=== PATIENT | female | born 1980 | race American Indian/Alaskan Native ===

== ENCOUNTER 2016-12-18 20:02 | Emergency (ER) | payer MEDICARE ==
[2016-12-18 20:03] VITALS: BMI 24.7
--- NOTE | 2016-12-18 21:27 | C.PDOC ---
History Of Present Illness 36 year old female with a Hx of sickle cell anemia presents to the ER with a complaint of bilateral leg, arm, and back pain for the past 2 days. Patient states the pain feels like her typical sickle cell crisis pain. Denies fever, cough, SOB, or chest pain. Patient is on 4mg dilaudid PO at home. Time Seen by Provider: 12/18/16 21:10 Chief Complaint (Nursing): Pain, Chronic History Per: Patient History/Exam Limitations: no limitations Onset/Duration Of Symptoms: Days Current Symptoms Are (Timing): Still Present Recent travel outside of the [place]: No Past Medical History Reviewed: Historical Data, Nursing Documentation, Vital Signs Vital Signs: Last Vital Signs Temp 98.2 F 12/18/16 20:22 Pulse 110 H 12/18/16 20:22 Resp 18 12/18/16 20:22 BP 124/78 12/18/16 20:22 Pulse Ox 100 12/18/16 21:32 - Medical History PMH: Anemia, Migraine, Sickle Cell Disease Surgical History: Cholecystectomy (2003) - [facility] Procedures PACKED CELL TRANSFUSION (07/26/12) TETANUS TOXOID ADMINIST (11/14/12) Family History: States: Unknown Family Hx - Social History Hx Tobacco Use: No Hx Alcohol Use: No Hx Substance Use: No - Immunization History Hx Tetanus Toxoid Vaccination: No Hx Influenza Vaccination: Yes Hx Pneumococcal Vaccination: Yes Review Of Systems Except As Marked, All Systems Reviewed And Found Negative. Constitutional: Negative for: Fever Cardiovascular: Negative for: Chest Pain Respiratory: Negative for: Shortness of Breath Musculoskeletal: Positive for: Arm Pain, Back Pain, Leg Pain Physical Exam - Physical Exam Additional Physical Exam Comments: Constitutional: No acute distress. Head: Normocephalic. Atraumatic. Eyes: PERRL. ENT: Moist mucous membranes. Neck: Supple. Cardiovascular: Regular rate. Radial pulse 2+ bilaterally. Chest: No tenderness. Respiratory: Clear to auscultation bilaterally. GI: Soft. Nontender. Nondistended. Back: No CVA tenderness. Musculoskeletal: No tenderness or swelling of extremities. Skin: No rash. Neurologic: Alert, no focal deficit. ED Course And Treatment O2 Sat by Pulse Oximetry: 100 (Room air) Pulse Ox Interpretation: Normal Medical Decision Making Medical Decision Making: Plan: * Benadryl * Dilaudid * Motrin * Reglan PO pain protocol initiated. Patient stated pain from 8 to 7 after 1 hour. Additional 8mg dilaudid PO administered. After another hour, patient states she feels better, at least a 5. She feels comfortable to go home. I advised her that she may return to ED for any worsening pain and to definitely return for chest pain, dyspnea, cough, fever. Disposition - Disposition Referrals: Rosalina Hernandez MD [Staff Provider] - Disposition: HOME/ ROUTINE Disposition Time: 00:38 Condition: STABLE Instructions: Sickle Cell Crisis (ED) Forms: [employer] ([place]) - Clinical Impression Clinical Impression: Sickle cell pain crisis - Scribe Statement The provider has reviewed the documentation as recorded by the Scribe Bright Gordon All medical record entries made by the Scribe were at my direction and personally dictated by me. I have reviewed the chart and agree that the record accurately reflects my personal performance of the history, physical exam, medical decision making, and the department course for this patient. I have also personally directed, reviewed, and agree with the discharge instructions and disposition.
[2016-12-19 00:45] VITALS: BP 108/73; PULSE 96; RESP 20; TEMP 98.3; O2SAT 99
== END 2016-12-19 00:50 | disposition home or self-care (01) ==
LOC: C.ER 20:02
DX: D57.00 Hb-SS disease with crisis, unspecified (principal)

== ENCOUNTER 2017-03-09 16:20 | Inpatient (IN) | payer MEDICARE ==
[2017-03-09 16:49] VITALS: BMI 22.4
[2017-03-09 18:09] LABS: SQUAMOUS EPITHIAL 21 /hpf (0-5); URINE BACTERIA MOD (<OCC); URINE BILIRUBIN NEGATIVE (NEGATIVE); URINE BLOOD 2+ (NEGATIVE); URINE CLARITY Hazy (Clear); URINE COLOR Yellow (YELLOW); URINE GLUCOSE (UA) NORMAL (Normal); URINE LEUKOCYTE ESTERASE 3+ Leu/uL (Negative); URINE NITRATE NEGATIVE (NEGATIVE); URINE PROTEIN 1+ mg/dL (NEGATIVE); URINE UROBILINOGEN NORMAL mg/dL (0.2-1.0)
[2017-03-09 18:10] LABS: HCG,QUALITATIVE URINE NEGATIVE (NEGATIVE)
[2017-03-09] MEDS ORDERED: Sodium Chloride 0.9% 1,000 ML IV ONE (18:30)
[2017-03-09] MEDS ORDERED: Acetaminophen-Codeine 300/30 mg Tab PO STA (18:32)
[2017-03-09] MEDS ORDERED: Acetaminophen-Codeine 300/30 mg Tab PO ONE (18:56)
[2017-03-09] MEDS ORDERED: Sodium Chloride 0.9% 1,000 ML ONE (18:56)
[2017-03-09 19:03] LABS: BASO # 0.4 K/uL (0.0-0.2); BASO % 1.5 % (0.0-2.0); EOS # 0.8 K/uL (0.0-0.7); EOS % 2.9 % (0.0-4.0); LYMPH # 7.1 K/uL (1.0-4.3); LYMPH % 25.1 % (20.0-40.0); MEAN CORPUSCULAR HEMOGLOBIN 28.9 pg (27.0-31.0); MEAN CORPUSCULAR HGB CONC 33.6 g/dL (33.0-37.0); MONO # 2.7 K/uL (0.0-0.8); MONO % 9.6 % (0.0-10.0); NEUT # 17.3 K/uL (1.8-7.0); NEUT % 60.9 % (50.0-75.0); RBC 2.12 Mil/uL (3.80-5.20); RED CELL DISTRIBUTION WIDTH 20.8 % (11.5-14.5); WHITE BLOOD COUNT 28.4 K/uL (4.8-10.8)
[2017-03-09 19:06] LABS: HEMOGLOBIN 6.1 g/dL (11.0-16.0); MEAN CELL VOLUME 85.9 fL (81.0-99.0)
[2017-03-09 19:11] LABS: ALB/GLOB RATIO 0.7 (1.0-2.1); ALBUMIN 3.8 g/dL (3.5-5.0); CALCIUM 8.1 mg/dl (8.6-10.4)
--- NOTE | 2017-03-09 19:25 | C.PDOC ---
History Of Present Illness 36 year old female with PMHx of sickle cell anemia presents to the ED c/o generalized body pains. Patient states she is not taking any medications at this time. Patient denies fever, chills, nausea, vomit, diarrhea. Patient's PMD is Dr. Dontae Hernandez. Time Seen by Provider: 03/09/17 18:28 Chief Complaint (Nursing): Pain, Chronic History Per: Patient History/Exam Limitations: no limitations Onset/Duration Of Symptoms: Days Current Symptoms Are (Timing): Still Present Recent travel outside of the [place]: No Additional History Per: Patient Past Medical History Reviewed: Historical Data, Nursing Documentation, Vital Signs Vital Signs: Last Vital Signs Temp 98.2 F 03/09/17 19:45 Pulse 103 H 03/09/17 19:45 Resp 18 03/09/17 19:45 BP 112/78 03/09/17 19:45 Pulse Ox 100 03/09/17 19:45 - Medical History PMH: Anemia, Migraine, Sickle Cell Disease Surgical History: Cholecystectomy (2003) - [facility] Procedures PACKED CELL TRANSFUSION (07/26/12) TETANUS TOXOID ADMINIST (11/14/12) Family History: States: Unknown Family Hx - Social History Hx Tobacco Use: No Hx Alcohol Use: No Hx Substance Use: No - Immunization History Hx Tetanus Toxoid Vaccination: No Hx Influenza Vaccination: Yes Hx Pneumococcal Vaccination: Yes Review Of Systems Constitutional: Positive for: Weakness. Negative for: Fever, Chills Cardiovascular: Negative for: Chest Pain, Palpitations Respiratory: Negative for: Cough, Shortness of Breath Gastrointestinal: Negative for: Nausea, Vomiting, Abdominal Pain Genitourinary: Negative for: Dysuria, Hematuria Musculoskeletal: Negative for: Back Pain Skin: Negative for: Rash Neurological: Negative for: Weakness, Numbness, Headache Physical Exam - Physical Exam Appears: Non-toxic, No Acute Distress Skin: Normal Color, Warm, Dry Head: Atraumatic, Normacephalic Eye(s): bilateral: Normal Inspection Nose: No Discharge, No Deformity Oral Mucosa: Moist Neck: Normal ROM, Supple Chest: Symmetrical Cardiovascular: Rhythm Regular, No Murmur Respiratory: Normal Breath Sounds, No Rales, No Rhonchi, No Wheezing Gastrointestinal/Abdominal: Soft, No Tenderness, No Guarding, No Rebound Extremity: Normal ROM, No Pedal Edema, No Calf Tenderness, No Deformity, No Swelling Neurological/Psych: Oriented x3, Normal Speech, Normal Cognition Gait: Steady ED Course And Treatment - Laboratory Results Result Diagrams: 03/09/17 18:53 03/09/17 18:53 O2 Sat by Pulse Oximetry: 100 (On RA) Pulse Ox Interpretation: Normal Medical Decision Making Medical Decision Making: Impression : generalized body pains Plan: * Labs * EKG * Blood culture * UA * IV fluids * Rocephin 1 gm in 100 ml * Toradol 30 mg IVP * Tylenol/codein 1 ea PO Spoke with Dr. Ha regarding the patient and he agreed with the admission. Disposition Discussed With : Lencho Ha Doctor Will See Patient In The: Hospital Counseled Patient/Family Regarding: Studies Performed, Diagnosis - Disposition Disposition: HOSPITALIZED Disposition Time: 19:26 Condition: FAIR Forms: [facility] (Citizen Of [place]) - Clinical Impression Clinical Impression: Sickle cell anemia with pain, UTI (urinary tract infection) - Scribe Statement The provider has reviewed the documentation as recorded by the Scribe Carlos Manuel Castañeda All medical record entries made by the Scribe were at my direction and personally dictated by me. I have reviewed the chart and agree that the record accurately reflects my personal performance of the history, physical exam, medical decision making, and the department course for this patient. I have also personally directed, reviewed, and agree with the discharge instructions and disposition.
[2017-03-09] MEDS ORDERED: DiphenhydrAMINE 50 mg/ml Inj ONE (21:21)
[2017-03-09] MEDS ORDERED: Sodium Chloride 0.45% 500ml 1,000 ML IV ONE (21:21)
[2017-03-09] MEDS: Sodium Chloride 0.45% 1,000 ML IV SCH (21:36)
[2017-03-09] MEDS: DiphenhydrAMINE 50 mg/ml Inj IVP PRN (21:36)
[2017-03-10] MEDS: DiphenhydrAMINE 50 mg/ml Inj IVP PRN ×8 (00:33→22:19)
[2017-03-10] MEDS: Sodium Chloride 0.45% 1,000 ML IV SCH ×4 (04:11→22:33)
[2017-03-10 06:23] LABS: BASO # 0.3 K/uL (0.0-0.2); BASO % 1.2 % (0.0-2.0); EOS # 1.2 K/uL (0.0-0.7); EOS % 4.5 % (0.0-4.0); LYMPH # 9.4 K/uL (1.0-4.3); LYMPH % 34.8 % (20.0-40.0); MEAN CELL VOLUME 86.8 fL (81.0-99.0); MEAN CORPUSCULAR HGB CONC 35.7 g/dL (33.0-37.0); MEAN PLATELET VOLUME 9.5 fL (7.2-11.7); MONO # 2.5 K/uL (0.0-0.8); MONO % 9.1 % (0.0-10.0); NEUT # 13.6 K/uL (1.8-7.0); NEUT % 50.4 % (50.0-75.0); RBC 1.68 Mil/uL (3.80-5.20); RED CELL DISTRIBUTION WIDTH 21.5 % (11.5-14.5)
[2017-03-10 06:35] LABS: HEMOGLOBIN 5.2 g/dL (11.0-16.0)
--- NOTE | 2017-03-10 08:53 | RAD ---
HISTORY: cough COMPARISON: Portable chest 12/03/2012. TECHNIQUE: Chest PA and lateral FINDINGS: Prior left-sided MediPort is been exchanged for a right-sided MediPort with the tip of the catheter terminating at the region of the right atrium. Stabilizing thoracic spinal rods are unchanged in apparent position and configuration at the thoracic spine. LUNGS: No acute infiltrate is identified bilaterally. Linear atelectasis or fibrosis in the right base. Overall inspiratory volume is improved. PLEURA: No significant pleural effusion identified. No pneumothorax apparent. CARDIOVASCULAR: Cardiac silhouette appears upper limits normal size. No pulmonary vascular derangement appreciated. OSSEOUS STRUCTURES: Thoracic spinal hardware as described above. VISUALIZED UPPER ABDOMEN: Apparent bilateral nephrostomy catheters are in identified in the abdomen. OTHER FINDINGS: None. IMPRESSION: One minimal linear atelectasis or fibrosis in the right base in the interval and MediPort axis is been exchanged for left to the right sides as discussed above in the interval. No acute infiltrate, pleural effusion or pneumothorax identified this time. Borderline cardiomegaly is noted.
--- NOTE | 2017-03-10 10:19 | CP.PCM.PN ---
Subjective - Date & Time of Evaluation Date of Evaluation: 03/10/17 Time of Evaluation: 10:16 - Subjective Subjective: PT SEEN AND TO REC 2 UNITS PRBC TODAY FOR HGB 5.2. PT STATES SHE HAS REC'D TRANSFUSIONS BEFORE WITHOUT ANY REACTIONS. LAST TRANSFUSIONS GIVEN APPROX 1-2 MONTHS AGO. DISCUSSED RISKS AND BENEFITS OF TRANSFUSION AND PT IN AGREEMENT TO HAVE IT DONE HERE. WILL PRE-MEDICATE WITH TYLENOL AND BENADRYL. PT VERBALIZES UNDERSTANDING OF ALL POSS REACTIONS. TO CONTINUE ROCEPHIN IV QD. NO FURTHER ORDERS AT THIS TIME. WILL CONTINUE TO MONITOR. Objective - Vital Signs/Intake and Output Vital Signs (last 24 hours): Temp Pulse Resp BP Pulse Ox 98.5 F 96 H 18 112/72 96 03/10/17 07:45 03/10/17 07:45 03/10/17 07:45 03/10/17 07:45 03/10/17 07:45 - Medications Medications: Current Medications Acetaminophen (Tylenol 325mg Tab) 650 mg PO ONCE PRN PRN Reason: give pre-transfusion Diphenhydramine HCl (Benadryl) 50 mg IVP Q3H PRN PRN Reason: given with dilaudid Last Admin: 03/10/17 06:47 Dose: 50 mg Diphenhydramine HCl (Benadryl) 25 mg PO ONCE PRN PRN Reason: pre-transfusion Hydromorphone HCl (Dilaudid) 2 mg IVP Q3H PRN PRN Reason: Pain, severe (8-10) Last Admin: 03/10/17 06:47 Dose: 2 mg Sodium Chloride (Sodium Chloride 0.45%) 1,000 mls @ 150 mls/hr IV .Q6H40M AP Last Admin: 03/10/17 04:11 Dose: 150 mls/hr Ceftriaxone Sodium 1 gm/ (Sodium Chloride) 50 mls @ 100 mls/hr IVPB DAILY AP - Labs Labs: 03/10/17 06:18 03/09/17 18:53
--- NOTE | 2017-03-10 12:12 | CP.PCM.CON ---
History of Present Illness - History of Present Illness History of Present Illness: 36 year old female with a history of sickle cell anemia, admitted with sickle cell pain crisis. The patient reports to increasing diffuse bone pain which did not improve with her oral pain meds. She denies fevers and chills. She does report to progressive fatigue but no shortness of breath. She denies abnormal bleeding and bruising. Past medical history: Sickle cell anemia Past surgical history: Portacath Family history: Parents have the trait. Social history: Denies tobacco, alcohol, and illicit drug use. Allergies: Droperidol, tramadol Review of systems: All remaining review of systems including HEENT, cardiovascular, respiratory, gastrointestinal, genitourinary, musculoskeletal, dermatologic, neurologic, and psychiatric are negative unless mentioned in the HPI. Past Patient History - Past Medical History & Family History Past Medical History?: Yes - Past Social History Smoking Status: Never Smoked - NEUROLOGICAL Hx Migraine: Yes - HEMATOLOGICAL/ONCOLOGICAL Hx Anemia: Yes Hx Sickle Cell Disease: Yes - MUSCULOSKELETAL/RHEUMATOLOGICAL Hx Falls: No - PSYCHIATRIC Hx Substance Use: No - SURGICAL HISTORY Hx Cholecystectomy: Yes (2003) - ANESTHESIA Hx Anesthesia: Yes Hx Anesthesia Reactions: No Meds Allergies/Adverse Reactions: Allergies Allergy/AdvReac Type Severity Reaction Status Date / Time droperidol Allergy Verified 03/09/17 16:48 tramadol Allergy Verified 03/09/17 16:48 inapsine Allergy RASH Uncoded 03/09/17 16:48 - Medications Medications: Current Medications Acetaminophen (Tylenol 325mg Tab) 650 mg PO ONCE PRN PRN Reason: give pre-transfusion Diphenhydramine HCl (Benadryl) 50 mg IVP Q3H PRN PRN Reason: given with dilaudid Last Admin: 03/10/17 10:15 Dose: 50 mg Diphenhydramine HCl (Benadryl) 25 mg PO ONCE PRN PRN Reason: pre-transfusion Hydromorphone HCl (Dilaudid) 2 mg IVP Q3H PRN PRN Reason: Pain, severe (8-10) Last Admin: 03/10/17 10:15 Dose: 2 mg Sodium Chloride (Sodium Chloride 0.45%) 1,000 mls @ 150 mls/hr IV .Q6H40M AP Last Admin: 03/10/17 04:11 Dose: 150 mls/hr Ceftriaxone Sodium 1 gm/ (Sodium Chloride) 50 mls @ 100 mls/hr IVPB DAILY AP Last Admin: 03/10/17 11:47 Dose: 100 mls/hr Physical Exam - Head Exam Head Exam: ATRAUMATIC - Eye Exam Eye Exam: Normal appearance - ENT Exam ENT Exam: Mucous Membranes Dry - Respiratory Exam Respiratory Exam: NORMAL BREATHING PATTERN - Cardiovascular Exam Cardiovascular Exam: +S1, +S2 - GI/Abdominal Exam GI & Abdominal Exam: Normal Bowel Sounds - Extremities Exam Extremities exam: Positive for: normal inspection - Neurological Exam Neurological exam: Oriented x3 - Psychiatric Exam Psychiatric exam: Normal Affect, Normal Mood - Skin Skin Exam: Warm Results - Vital Signs Recent Vital Signs: Last Vital Signs Temp 98.5 F 03/10/17 07:45 Pulse 96 H 03/10/17 07:45 Resp 18 03/10/17 07:45 BP 112/72 03/10/17 07:45 Pulse Ox 96 03/10/17 07:45 - Labs Result Diagrams: 03/11/17 06:24 03/11/17 06:24 Labs: Laboratory Results - last 24 hr 03/09/17 03/09/17 03/09/17 17:58 18:53 18:53 WBC 28.4 H D RBC 2.12 L Hgb 6.1 L* D Hct 18.2 L MCV 85.9 D MCH 28.9 MCHC 33.6 RDW 20.8 H Plt Count 245 MPV 9.0 Neut % (Auto) 60.9 Lymph % (Auto) 25.1 [place] % (Auto) 9.6 Eos % (Auto) 2.9 Baso % (Auto) 1.5 Neut # 17.3 H Lymph # 7.1 H [place] # 2.7 H Eos # 0.8 H Baso # 0.4 H Retic Count Sodium 133 Potassium 5.0 Chloride 105 Carbon Dioxide 20 L Anion Gap 13 BUN 33 H Creatinine 1.4 H Est GFR ( Amer) 51 Est GFR (Non-Af Amer) 42 Random Glucose 87 Calcium 8.1 L Ferritin Total Bilirubin 3.4 H AST 189 H ALT 110 H D Alkaline Phosphatase 194 H Total Protein 9.4 H Albumin 3.8 Globulin 5.6 H Albumin/Globulin Ratio 0.7 L Lipase 275 Urine Color Yellow Urine Clarity Hazy Urine pH 6.0 Ur Specific [place] 1.008 Urine Protein 1+ H Urine Glucose (UA) Normal Urine Ketones Negative Urine Blood 2+ H Urine Nitrate Negative Urine Bilirubin Negative Urine Urobilinogen Normal Ur Leukocyte Esterase 3+ H Urine WBC (Auto) 862 H Urine RBC (Auto) 6 H Ur Squamous Epith Cells 21 H Urine Bacteria Mod H Ur Yeast w Hyphae Rare H Urine HCG, Qual Negative Blood Type Antibody Screen 03/09/17 03/10/17 03/10/17 19:37 06:18 06:18 WBC 27.0 H RBC 1.68 L Hgb 5.2 L* Hct 14.6 L MCV 86.8 MCH 31.0 MCHC 35.7 RDW 21.5 H Plt Count 202 MPV 9.5 Neut % (Auto) 50.4 Lymph % (Auto) 34.8 [place] % (Auto) 9.1 Eos % (Auto) 4.5 H Baso % (Auto) 1.2 Neut # 13.6 H Lymph # 9.4 H [place] # 2.5 H Eos # 1.2 H Baso # 0.3 H Retic Count 11.4 H D 11.0 H Sodium Potassium Chloride Carbon Dioxide Anion Gap BUN Creatinine Est GFR ( Amer) Est GFR (Non-Af Amer) Random Glucose Calcium Ferritin 71225.0 Total Bilirubin AST ALT Alkaline Phosphatase Total Protein Albumin Globulin Albumin/Globulin Ratio Lipase Urine Color Urine Clarity Urine pH Ur Specific [place] Urine Protein Urine Glucose (UA) Urine Ketones Urine Blood Urine Nitrate Urine Bilirubin Urine Urobilinogen Ur Leukocyte Esterase Urine WBC (Auto) Urine RBC (Auto) Ur Squamous Epith Cells Urine Bacteria Ur Yeast w Hyphae Urine HCG, Qual Blood Type Antibody Screen 03/10/17 08:04 WBC RBC Hgb Hct MCV MCH MCHC RDW Plt Count MPV Neut % (Auto) Lymph % (Auto) [place] % (Auto) Eos % (Auto) Baso % (Auto) Neut # Lymph # [place] # Eos # Baso # Retic Count Sodium Potassium Chloride Carbon Dioxide Anion Gap BUN Creatinine Est GFR ( Amer) Est GFR (Non-Af Amer) Random Glucose Calcium Ferritin Total Bilirubin AST ALT Alkaline Phosphatase Total Protein Albumin Globulin Albumin/Globulin Ratio Lipase Urine Color Urine Clarity Urine pH Ur Specific [place] Urine Protein Urine Glucose (UA) Urine Ketones Urine Blood Urine Nitrate Urine Bilirubin Urine Urobilinogen Ur Leukocyte Esterase Urine WBC (Auto) Urine RBC (Auto) Ur Squamous Epith Cells Urine Bacteria Ur Yeast w Hyphae Urine HCG, Qual Blood Type O POSITIVE Antibody Screen Negative Assessment & Plan (1) Sickle cell pain crisis Assessment and Plan: IV fluids, 02 via NC, folic acid, pain meds to receive 2U PRBC Status: Acute (2) Leukocytosis Assessment and Plan: on antibiotics may be reactive to sickle cell Status: Acute (3) Sickle cell anemia Assessment and Plan: folic acid daily reports hydrea did not work for her Status: Acute
--- NOTE | 2017-03-10 12:24 | CP.PCM.HP ---
Past Patient History - Past Medical History & Family History Past Medical History?: Yes - Past Social History Smoking Status: Never Smoked - NEUROLOGICAL Hx Migraine: Yes - HEMATOLOGICAL/ONCOLOGICAL Hx Anemia: Yes Hx Sickle Cell Disease: Yes - MUSCULOSKELETAL/RHEUMATOLOGICAL Hx Falls: No - PSYCHIATRIC Hx Substance Use: No - SURGICAL HISTORY Hx Cholecystectomy: Yes (2003) - ANESTHESIA Hx Anesthesia: Yes Hx Anesthesia Reactions: No Meds Allergies/Adverse Reactions: Allergies Allergy/AdvReac Type Severity Reaction Status Date / Time droperidol Allergy Verified 03/09/17 16:48 tramadol Allergy Verified 03/09/17 16:48 inapsine Allergy RASH Uncoded 03/09/17 16:48 Results - Vital Signs Recent Vital Signs: Last Vital Signs Temp 98.5 F 03/10/17 07:45 Pulse 96 H 03/10/17 07:45 Resp 18 03/10/17 07:45 BP 112/72 03/10/17 07:45 Pulse Ox 96 03/10/17 07:45 - Labs Result Diagrams: 03/10/17 06:18 03/09/17 18:53 Labs: Laboratory Results - last 24 hr 03/09/17 03/09/17 03/09/17 17:58 18:53 18:53 WBC 28.4 H D RBC 2.12 L Hgb 6.1 L* D Hct 18.2 L MCV 85.9 D MCH 28.9 MCHC 33.6 RDW 20.8 H Plt Count 245 MPV 9.0 Neut % (Auto) 60.9 Lymph % (Auto) 25.1 [place] % (Auto) 9.6 Eos % (Auto) 2.9 Baso % (Auto) 1.5 Neut # 17.3 H Lymph # 7.1 H [place] # 2.7 H Eos # 0.8 H Baso # 0.4 H Retic Count Sodium 133 Potassium 5.0 Chloride 105 Carbon Dioxide 20 L Anion Gap 13 BUN 33 H Creatinine 1.4 H Est GFR ( Amer) 51 Est GFR (Non-Af Amer) 42 Random Glucose 87 Calcium 8.1 L Ferritin Total Bilirubin 3.4 H AST 189 H ALT 110 H D Alkaline Phosphatase 194 H Total Protein 9.4 H Albumin 3.8 Globulin 5.6 H Albumin/Globulin Ratio 0.7 L Lipase 275 Urine Color Yellow Urine Clarity Hazy Urine pH 6.0 Ur Specific [place] 1.008 Urine Protein 1+ H Urine Glucose (UA) Normal Urine Ketones Negative Urine Blood 2+ H Urine Nitrate Negative Urine Bilirubin Negative Urine Urobilinogen Normal Ur Leukocyte Esterase 3+ H Urine WBC (Auto) 862 H Urine RBC (Auto) 6 H Ur Squamous Epith Cells 21 H Urine Bacteria Mod H Ur Yeast w Hyphae Rare H Urine HCG, Qual Negative Blood Type Antibody Screen 03/09/17 03/10/17 03/10/17 19:37 06:18 06:18 WBC 27.0 H RBC 1.68 L Hgb 5.2 L* Hct 14.6 L MCV 86.8 MCH 31.0 MCHC 35.7 RDW 21.5 H Plt Count 202 MPV 9.5 Neut % (Auto) 50.4 Lymph % (Auto) 34.8 [place] % (Auto) 9.1 Eos % (Auto) 4.5 H Baso % (Auto) 1.2 Neut # 13.6 H Lymph # 9.4 H [place] # 2.5 H Eos # 1.2 H Baso # 0.3 H Retic Count 11.4 H D 11.0 H Sodium Potassium Chloride Carbon Dioxide Anion Gap BUN Creatinine Est GFR ( Amer) Est GFR (Non-Af Amer) Random Glucose Calcium Ferritin 02688.0 Total Bilirubin AST ALT Alkaline Phosphatase Total Protein Albumin Globulin Albumin/Globulin Ratio Lipase Urine Color Urine Clarity Urine pH Ur Specific [place] Urine Protein Urine Glucose (UA) Urine Ketones Urine Blood Urine Nitrate Urine Bilirubin Urine Urobilinogen Ur Leukocyte Esterase Urine WBC (Auto) Urine RBC (Auto) Ur Squamous Epith Cells Urine Bacteria Ur Yeast w Hyphae Urine HCG, Qual Blood Type Antibody Screen 03/10/17 08:04 WBC RBC Hgb Hct MCV MCH MCHC RDW Plt Count MPV Neut % (Auto) Lymph % (Auto) [place] % (Auto) Eos % (Auto) Baso % (Auto) Neut # Lymph # [place] # Eos # Baso # Retic Count Sodium Potassium Chloride Carbon Dioxide Anion Gap BUN Creatinine Est GFR ( Amer) Est GFR (Non-Af Amer) Random Glucose Calcium Ferritin Total Bilirubin AST ALT Alkaline Phosphatase Total Protein Albumin Globulin Albumin/Globulin Ratio Lipase Urine Color Urine Clarity Urine pH Ur Specific [place] Urine Protein Urine Glucose (UA) Urine Ketones Urine Blood Urine Nitrate Urine Bilirubin Urine Urobilinogen Ur Leukocyte Esterase Urine WBC (Auto) Urine RBC (Auto) Ur Squamous Epith Cells Urine Bacteria Ur Yeast w Hyphae Urine HCG, Qual Blood Type O POSITIVE Antibody Screen Negative
[2017-03-11] MEDS: Sodium Chloride 0.45% 1,000 ML IV SCH ×6 (00:10→22:24)
[2017-03-11 00:56] VITALS: RESP 20
[2017-03-11] MEDS: DiphenhydrAMINE 50 mg/ml Inj IVP PRN ×8 (01:37→23:58)
[2017-03-11 06:34] LABS: HEMOGLOBIN 8.2 g/dL (11.0-16.0); MEAN CELL VOLUME 84.6 fL (81.0-99.0); MEAN CORPUSCULAR HEMOGLOBIN 29.5 pg (27.0-31.0); MEAN CORPUSCULAR HGB CONC 34.8 g/dL (33.0-37.0); MEAN PLATELET VOLUME 9.4 fL (7.2-11.7); RBC 2.77 Mil/uL (3.80-5.20); RED CELL DISTRIBUTION WIDTH 17.9 % (11.5-14.5); WHITE BLOOD COUNT 24.9 K/uL (4.8-10.8)
[2017-03-11 06:54] LABS: ALB/GLOB RATIO 0.8 (1.0-2.1); ALBUMIN 3.6 g/dL (3.5-5.0); CALCIUM 7.4 mg/dl (8.6-10.4)
[2017-03-11] MEDS ORDERED: Sod Polystyrene Sulf 15 gm/60 ml Susp PO ONE (12:48)
[2017-03-11] MEDS ORDERED: Sodium Chloride 0.9% 500 ML IV ONE (15:06)
--- NOTE | 2017-03-11 16:53 | CP.PCM.PN ---
Subjective - Date & Time of Evaluation Date of Evaluation: 03/11/17 Time of Evaluation: 16:00 - Subjective Subjective: Has bone pain but improving Objective - Vital Signs/Intake and Output Vital Signs (last 24 hours): Temp Pulse Resp BP Pulse Ox 97.3 F L 112 H 20 100/65 96 03/11/17 08:40 03/11/17 08:40 03/11/17 08:40 03/11/17 08:40 03/11/17 08:40 Intake and Output: 03/11/17 03/11/17 06:59 18:59 Intake Total 2225 Balance 2225 - Medications Medications: Current Medications Acetaminophen (Tylenol 325mg Tab) 650 mg PO ONCE PRN PRN Reason: give pre-transfusion Last Admin: 03/10/17 13:07 Dose: 650 mg Diphenhydramine HCl (Benadryl) 50 mg IVP Q3H PRN PRN Reason: given with dilaudid Last Admin: 03/11/17 14:24 Dose: 50 mg Diphenhydramine HCl (Benadryl) 25 mg PO ONCE PRN PRN Reason: pre-transfusion Folic Acid (Folic Acid) 1 mg PO DAILY [facility] Hydromorphone HCl (Dilaudid) 2 mg IVP Q3H PRN PRN Reason: Pain, severe (8-10) Last Admin: 03/11/17 14:24 Dose: 2 mg Sodium Chloride (Sodium Chloride 0.45%) 1,000 mls @ 150 mls/hr IV .Q6H40M [facility] Last Admin: 03/11/17 08:08 Dose: 150 mls/hr Ceftriaxone Sodium 1 gm/ (Sodium Chloride) 50 mls @ 100 mls/hr IVPB DAILY [facility] Last Admin: 03/11/17 11:00 Dose: 100 mls/hr - Labs Labs: 03/11/17 06:24 03/11/17 06:24 - Head Exam Head Exam: ATRAUMATIC - Eye Exam Eye Exam: Normal appearance - ENT Exam ENT Exam: Mucous Membranes Dry - Respiratory Exam Respiratory Exam: NORMAL BREATHING PATTERN - Cardiovascular Exam Cardiovascular Exam: +S1, +S2 - GI/Abdominal Exam GI & Abdominal Exam: Normal Bowel Sounds - Extremities Exam Extremities Exam: Normal Inspection Assessment and Plan (1) Sickle cell pain crisis Assessment & Plan: IV fluids, pain meds, 02 via NC, folic acid s/p 2U PRBC Status: Acute (2) Leukocytosis Assessment & Plan: on antibiotics may be reactive to sickle cell Status: Acute (3) Sickle cell anemia Assessment & Plan: outpatient folic acid Status: Acute
--- NOTE | 2017-03-11 18:47 | CP.PCM.PN ---
Subjective - Date & Time of Evaluation Date of Evaluation: 03/11/17 Time of Evaluation: 18:47 Objective - Vital Signs/Intake and Output Vital Signs (last 24 hours): Temp Pulse Resp BP Pulse Ox 97.3 F L 112 H 20 112/78 96 03/11/17 08:40 03/11/17 08:40 03/11/17 08:40 03/11/17 17:29 03/11/17 08:40 Intake and Output: 03/11/17 03/11/17 06:59 18:59 Intake Total 2225 2500 Balance 2225 2500 - Medications Medications: Current Medications Acetaminophen (Tylenol 325mg Tab) 650 mg PO ONCE PRN PRN Reason: give pre-transfusion Last Admin: 03/10/17 13:07 Dose: 650 mg Diphenhydramine HCl (Benadryl) 50 mg IVP Q3H PRN PRN Reason: given with dilaudid Last Admin: 03/11/17 17:29 Dose: 50 mg Diphenhydramine HCl (Benadryl) 25 mg PO ONCE PRN PRN Reason: pre-transfusion Folic Acid (Folic Acid) 1 mg PO DAILY [facility] Last Admin: 03/11/17 17:29 Dose: 1 mg Hydromorphone HCl (Dilaudid) 2 mg IVP Q3H PRN PRN Reason: Pain, severe (8-10) Last Admin: 03/11/17 17:30 Dose: 2 mg Sodium Chloride (Sodium Chloride 0.45%) 1,000 mls @ 150 mls/hr IV .Q6H40M [facility] Last Admin: 03/11/17 17:35 Dose: 150 mls/hr Ceftriaxone Sodium 1 gm/ (Sodium Chloride) 50 mls @ 100 mls/hr IVPB DAILY [facility] Last Admin: 03/11/17 11:00 Dose: 100 mls/hr - Labs Labs: 03/11/17 06:24 03/11/17 06:24
[2017-03-12] MEDS: DiphenhydrAMINE 50 mg/ml Inj IVP PRN ×7 (03:00→21:31)
[2017-03-12] MEDS: Sodium Chloride 0.45% 1,000 ML IV SCH ×3 (03:06→16:00)
[2017-03-12 07:58] LABS: BASO # 0.2 K/uL (0.0-0.2); EOS # 1.2 K/uL (0.0-0.7); HEMOGLOBIN 7.8 g/dL (11.0-16.0); LYMPH # 3.9 K/uL (1.0-4.3); LYMPH % 16.3 % (20.0-40.0); MEAN CELL VOLUME 85.7 fL (81.0-99.0); MEAN CORPUSCULAR HEMOGLOBIN 29.5 pg (27.0-31.0); MEAN CORPUSCULAR HGB CONC 34.4 g/dL (33.0-37.0); MEAN PLATELET VOLUME 10.2 fL (7.2-11.7); MONO # 2.5 K/uL (0.0-0.8); MONO % 10.5 % (0.0-10.0); NEUT % 67.2 % (50.0-75.0); RBC 2.64 Mil/uL (3.80-5.20); RED CELL DISTRIBUTION WIDTH 18.6 % (11.5-14.5); WHITE BLOOD COUNT 23.8 K/uL (4.8-10.8)
[2017-03-12 08:28] LABS: ALBUMIN 3.6 g/dL (3.5-5.0); CALCIUM 7.9 mg/dl (8.6-10.4); MAGNESIUM 1.5 mg/dL (1.6-2.3)
[2017-03-12 08:29] LABS: ALB/GLOB RATIO 0.8 (1.0-2.1)
--- NOTE | 2017-03-12 15:51 | CP.PCM.PN ---
Subjective - Date & Time of Evaluation Date of Evaluation: 03/12/17 Time of Evaluation: 15:51 Objective - Vital Signs/Intake and Output Vital Signs (last 24 hours): Temp Pulse Resp BP Pulse Ox 99.4 F 111 H 20 112/76 95 03/12/17 07:25 03/12/17 07:25 03/12/17 07:25 03/12/17 07:25 03/12/17 07:25 Intake and Output: 03/12/17 03/12/17 06:59 18:59 Intake Total 1860 1600 Output Total 300 Balance 1860 1300 - Medications Medications: Current Medications Acetaminophen (Tylenol 325mg Tab) 650 mg PO ONCE PRN PRN Reason: give pre-transfusion Last Admin: 03/10/17 13:07 Dose: 650 mg Diphenhydramine HCl (Benadryl) 50 mg IVP Q3H PRN PRN Reason: given with dilaudid Last Admin: 03/12/17 15:32 Dose: 50 mg Diphenhydramine HCl (Benadryl) 25 mg PO ONCE PRN PRN Reason: pre-transfusion Folic Acid (Folic Acid) 1 mg PO DAILY [facility] Last Admin: 03/12/17 09:25 Dose: 1 mg Hydromorphone HCl (Dilaudid) 2 mg IVP Q3H PRN PRN Reason: Pain, severe (8-10) Last Admin: 03/12/17 15:31 Dose: 2 mg Sodium Chloride (Sodium Chloride 0.45%) 1,000 mls @ 150 mls/hr IV .Q6H40M [facility] Last Admin: 03/12/17 10:00 Dose: 150 mls/hr Ceftriaxone Sodium 1 gm/ (Sodium Chloride) 100 mls @ 100 mls/hr IVPB DAILY [facility] Last Admin: 03/12/17 09:27 Dose: 100 mls/hr - Labs Labs: 03/12/17 07:25 03/12/17 07:25
[2017-03-12] MEDS ORDERED: Magnesium Sulfate 1 gm in D5W 1 GM/100 ML BAG IVPB ONE (17:36)
--- NOTE | 2017-03-12 17:48 | CP.PCM.PN ---
Subjective - Date & Time of Evaluation Date of Evaluation: 03/12/17 Time of Evaluation: 17:44 - Subjective Subjective: PATIENT WAS ADMITTED FOR SICKLE CELL CRISIS; AAOX3 DENIES PAIN; JUST COMPLAINING OF DISCOMFORT; DENIES CHEST PAIN, NAUSEA OR VOMITING NO SIGN OF DISTRESS NOTED Objective - Vital Signs/Intake and Output Vital Signs (last 24 hours): Temp Pulse Resp BP Pulse Ox 98.1 F 102 H 20 125/74 95 03/12/17 16:22 03/12/17 16:22 03/12/17 16:22 03/12/17 16:22 03/12/17 16:22 Intake and Output: 03/12/17 03/12/17 06:59 18:59 Intake Total 1860 1600 Output Total 300 Balance 1860 1300 - Medications Medications: Current Medications Acetaminophen (Tylenol 325mg Tab) 650 mg PO ONCE PRN PRN Reason: give pre-transfusion Last Admin: 03/10/17 13:07 Dose: 650 mg Diphenhydramine HCl (Benadryl) 50 mg IVP Q3H PRN PRN Reason: given with dilaudid Last Admin: 03/12/17 15:32 Dose: 50 mg Diphenhydramine HCl (Benadryl) 25 mg PO ONCE PRN PRN Reason: pre-transfusion Folic Acid (Folic Acid) 1 mg PO DAILY [facility] Last Admin: 03/12/17 09:25 Dose: 1 mg Hydromorphone HCl (Dilaudid) 2 mg IVP Q3H PRN PRN Reason: Pain, severe (8-10) Last Admin: 03/12/17 15:31 Dose: 2 mg Sodium Chloride (Sodium Chloride 0.45%) 1,000 mls @ 150 mls/hr IV .Q6H40M [facility] Last Admin: 03/12/17 10:00 Dose: 150 mls/hr Ceftriaxone Sodium 1 gm/ (Sodium Chloride) 100 mls @ 100 mls/hr IVPB DAILY [facility] Last Admin: 03/12/17 09:27 Dose: 100 mls/hr Magnesium Sulfate/Dextrose (Magnesium Sulfate 1 Gm/100 Ml D5w) 1 gm in 100 mls @ 200 mls/hr IVPB ONCE ONE Stop: 03/12/17 18:05 - Labs Labs: 03/12/17 07:25 03/12/17 07:25 Assessment and Plan - Assessment and Plan (Free Text) Assessment: MG WAS 1.5 [address] POTASSIUM WAS 5.2 LASIX CAUSE PATIENT REFUSE [facility] FOR TOMORROW FOR [employer] ON DUTY TO FOLLOW DISCUSS WITH DR VEGAS AND DR SOOD WHO AGREE WITH THE PLAN FOLLOW UP WITH DR Alba GONZALEZ AT HIS OFFICE FOR F/U APPOINTMENT IN 1-2 WEEKS --- CALL FOR APPOINTMENT OR FOLLOW UP WITH DR SOOD COVERING PHYSICIAN IF UNABLE TO REACH DR Alba GONZALEZ IN HIS OFFICE --CALL FOR APPOINTMENT FOLLOW UP WITH YOUR ONCOLOGY OUT PATIENT 1-2 WEEKS AT HIS OFFICE ---CALL FOR APPOINTMENT CONTINUE ALL YOR HOME MEDICATION DIRECTED NEW PRESCRIPTION GIVEN: BACTRIM DS FOR 5 DAYS DILAUDID 2 MG BY MOUTH EVERY 6 HOURS FOR 5 DAYS FOR PAIN CALL DR Alba GONZALEZ OR DR SOOD OR GO TO THE EMERGENCY ROOM IF SYMPTOMS RETURN OR WORSENING
[2017-03-12] MEDS ORDERED: Pneumococcal 23-Valent Vaccine IM ONE (18:05)
[2017-03-12] MEDS ORDERED: Influenza Vaccine 60 mcg/0.5 mL SYR (4YR UP) IM ONE (18:05)
--- NOTE | 2017-03-12 21:24 | CP.PCM.PN ---
Subjective - Date & Time of Evaluation Date of Evaluation: 03/12/17 Time of Evaluation: 12:00 - Subjective Subjective: Still has some bone pain but improved. Objective - Vital Signs/Intake and Output Vital Signs (last 24 hours): Temp Pulse Resp BP Pulse Ox 98.1 F 102 H 20 125/74 95 03/12/17 16:22 03/12/17 16:22 03/12/17 16:22 03/12/17 16:22 03/12/17 16:22 Intake and Output: 03/12/17 03/13/17 18:59 06:59 Intake Total 1600 Output Total 300 Balance 1300 - Medications Medications: Current Medications Acetaminophen (Tylenol 325mg Tab) 650 mg PO ONCE PRN PRN Reason: give pre-transfusion Last Admin: 03/10/17 13:07 Dose: 650 mg Diphenhydramine HCl (Benadryl) 50 mg IVP Q3H PRN PRN Reason: given with dilaudid Last Admin: 03/12/17 18:40 Dose: 50 mg Diphenhydramine HCl (Benadryl) 25 mg PO ONCE PRN PRN Reason: pre-transfusion Folic Acid (Folic Acid) 1 mg PO DAILY [facility] Last Admin: 03/12/17 09:25 Dose: 1 mg Hydromorphone HCl (Dilaudid) 2 mg IVP Q3H PRN PRN Reason: Pain, severe (8-10) Last Admin: 03/12/17 18:40 Dose: 2 mg Sodium Chloride (Sodium Chloride 0.45%) 1,000 mls @ 150 mls/hr IV .Q6H40M [facility] Last Admin: 03/12/17 10:00 Dose: 150 mls/hr Ceftriaxone Sodium 1 gm/ (Sodium Chloride) 100 mls @ 100 mls/hr IVPB DAILY [facility] Last Admin: 03/12/17 09:27 Dose: 100 mls/hr - Labs Labs: 03/12/17 07:25 03/12/17 07:25 - Head Exam Head Exam: ATRAUMATIC - Eye Exam Eye Exam: Normal appearance - ENT Exam ENT Exam: Mucous Membranes Dry - Respiratory Exam Respiratory Exam: NORMAL BREATHING PATTERN - Cardiovascular Exam Cardiovascular Exam: +S1, +S2 - GI/Abdominal Exam GI & Abdominal Exam: Normal Bowel Sounds - Extremities Exam Extremities Exam: Normal Inspection Assessment and Plan (1) Sickle cell pain crisis Assessment & Plan: IVF, 02 via NC, folic acid, pain meds s/p 2U PRBC Status: Acute (2) Leukocytosis Assessment & Plan: likely reactive to sickle cell on empiric antibiotics Status: Acute (3) Sickle cell anemia Assessment & Plan: outpatient folic acid. Status: Acute
[2017-03-13] MEDS: DiphenhydrAMINE 50 mg/ml Inj IVP PRN ×6 (00:34→16:06)
[2017-03-13 07:26] LABS: BASO # 0.3 K/uL (0.0-0.2); BASO % 1.2 % (0.0-2.0); EOS # 1.2 K/uL (0.0-0.7); EOS % 5.8 % (0.0-4.0); HEMOGLOBIN 7.7 g/dL (11.0-16.0); LYMPH # 4.4 K/uL (1.0-4.3); MEAN CELL VOLUME 86.1 fL (81.0-99.0); MEAN CORPUSCULAR HEMOGLOBIN 28.9 pg (27.0-31.0); MEAN CORPUSCULAR HGB CONC 33.6 g/dL (33.0-37.0); MEAN PLATELET VOLUME 10.4 fL (7.2-11.7); MONO # 1.6 K/uL (0.0-0.8); MONO % 7.6 % (0.0-10.0); NEUT # 13.6 K/uL (1.8-7.0); NEUT % 64.4 % (50.0-75.0); NRBC % 0.3 % (0.0-2.0); RBC 2.65 Mil/uL (3.80-5.20); RED CELL DISTRIBUTION WIDTH 19.4 % (11.5-14.5); WHITE BLOOD COUNT 21.2 K/uL (4.8-10.8)
[2017-03-13 07:51] LABS: ALB/GLOB RATIO 0.7 (1.0-2.1); ALBUMIN 3.7 g/dL (3.5-5.0); CALCIUM 7.7 mg/dl (8.6-10.4); MAGNESIUM 1.8 mg/dL (1.6-2.3)
--- NOTE | 2017-03-13 15:55 | CP.PCM.PN ---
Subjective - Date & Time of Evaluation Date of Evaluation: 03/13/17 Time of Evaluation: 15:55 Objective - Vital Signs/Intake and Output Vital Signs (last 24 hours): Temp Pulse Resp BP Pulse Ox 98.4 F 104 H 20 121/74 95 03/13/17 07:35 03/13/17 07:35 03/13/17 07:35 03/13/17 07:35 03/13/17 07:35 Intake and Output: 03/13/17 03/13/17 06:59 18:59 Intake Total 1500 Balance 1500 - Medications Medications: Current Medications Acetaminophen (Tylenol 325mg Tab) 650 mg PO ONCE PRN PRN Reason: give pre-transfusion Last Admin: 03/10/17 13:07 Dose: 650 mg Diphenhydramine HCl (Benadryl) 50 mg IVP Q3H PRN PRN Reason: given with dilaudid Last Admin: 03/13/17 12:48 Dose: 50 mg Diphenhydramine HCl (Benadryl) 25 mg PO ONCE PRN PRN Reason: pre-transfusion Folic Acid (Folic Acid) 1 mg PO DAILY [facility] Last Admin: 03/13/17 09:39 Dose: 1 mg Hydromorphone HCl (Dilaudid) 2 mg IVP Q3H PRN PRN Reason: Pain, severe (8-10) Last Admin: 03/13/17 12:48 Dose: 2 mg Ceftriaxone Sodium 1 gm/ (Sodium Chloride) 100 mls @ 100 mls/hr IVPB DAILY [facility] Last Admin: 03/13/17 09:39 Dose: 100 mls/hr - Labs Labs: 03/13/17 07:17 03/13/17 07:17
[2017-03-13 16:11] VITALS: BP 125/83; PULSE 102; TEMP 98.6; O2SAT 96
== END 2017-03-13 19:00 | disposition home or self-care (01) | DRG 812 ==
LOC: C.ER 16:20 → C.9E 19:25 → C.5S 23:00
PROVIDERS: ADMIT Internal Medicine Critical Care Medicine; ATTEND Internal Medicine Critical Care Medicine
PROC: 30233N1 Transfusion of Nonautologous Red Blood Cells into Peripheral Vein, Percutaneous Approach (ICD-10-PCS; principal; 2017-03-10)
DX: D57.00 Hb-SS disease with crisis, unspecified (principal); D72.829 Elevated white blood cell count, unspecified; N39.0 Urinary tract infection, site not specified; Z90.49 Acquired absence of other specified parts of digestive tract

== ENCOUNTER 2017-03-16 01:27 | Inpatient (IN) | payer MEDICARE ==
[2017-03-16 01:28] VITALS: BMI 22.4
[2017-03-16] MEDS ORDERED: DiphenhydrAMINE 50 mg/ml Inj IVP STA (05:22)
[2017-03-16] MEDS ORDERED: Sodium Chloride 0.9% 1,000 ML IV ONE (05:23)
[2017-03-16] MEDS ORDERED: DiphenhydrAMINE 50 mg/ml Inj ONE ×3 (05:42→13:27)
[2017-03-16] MEDS ORDERED: Sodium Chloride 0.9% 1,000 ML ONE (05:43)
[2017-03-16 05:54] LABS: BASO # 0.4 K/uL (0.0-0.2); BASO % 2.5 % (0.0-2.0); EOS # 0.6 K/uL (0.0-0.7); EOS % 3.8 % (0.0-4.0); HEMOGLOBIN 7.2 g/dL (11.0-16.0); LYMPH # 3.8 K/uL (1.0-4.3); LYMPH % 22.1 % (20.0-40.0); MEAN CORPUSCULAR HEMOGLOBIN 28.3 pg (27.0-31.0); MEAN CORPUSCULAR HGB CONC 33.7 g/dL (33.0-37.0); MEAN PLATELET VOLUME 9.3 fL (7.2-11.7); MONO # 1.6 K/uL (0.0-0.8); MONO % 9.4 % (0.0-10.0); NEUT # 10.6 K/uL (1.8-7.0); NEUT % 62.2 % (50.0-75.0); NRBC % 0.1 % (0.0-2.0); RBC 2.54 Mil/uL (3.80-5.20); RED CELL DISTRIBUTION WIDTH 17.8 % (11.5-14.5)
[2017-03-16 06:19] LABS: ALB/GLOB RATIO 0.7 (1.0-2.1); ALBUMIN 3.5 g/dL (3.5-5.0); ALT/SGPT 72 U/L (9-52); AST/SGOT 115 U/L (14-36); BLOOD UREA NITROGEN 22 mg/dL (7-17); CALCIUM 8.1 mg/dl (8.6-10.4); GFR AFRICAN-AMERICAN > 60; GFR NON-AFRICAN AMERICAN 56
--- NOTE | 2017-03-16 07:12 | C.PDOC ---
History Of Present Illness 36 year old female presents to ED with complaints of sickle cell vaso-occlusive crisis and has a past medical history of sickle cell disease. (+) back pain and bilateral leg pain. (-) chest pain or SOB. Patient was recently discharged from [facility] x2 days ago and admits to not filling any of the prescriptions given at that time. 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 Madiha Hernandez). Notes that pain never fully resolved from this last visit. Time Seen by Provider: 03/16/17 03:38 Chief Complaint (Nursing): Back Pain History Per: Patient History/Exam Limitations: no limitations Onset/Duration Of Symptoms: Days (approximately 3 days) Current Symptoms Are (Timing): Still Present Quality Of Discomfort: "Pain" Previous Symptoms: Back Pain, Other (bilateral leg pain) Past Medical History Reviewed: Historical Data, Nursing Documentation, Vital Signs Vital Signs: Last Vital Signs Temp 98.2 F 03/16/17 06:06 Pulse 72 03/16/17 06:06 Resp 20 03/16/17 06:06 BP 119/82 03/16/17 06:06 Pulse Ox 100 03/16/17 07:17 - Medical History PMH: Anemia, Migraine, Sickle Cell Disease Surgical History: Cholecystectomy (2003) - [facility] Procedures PACKED CELL TRANSFUSION (07/26/12) TETANUS TOXOID ADMINIST (11/14/12) TRANSFUSE NONAUT RED BLOOD CELLS IN PERIPH VEIN, PERC (03/09/17) Family History: States: Unknown Family Hx - Social History Hx Tobacco Use: No Hx Alcohol Use: No Hx Substance Use: No - Immunization History Hx Tetanus Toxoid Vaccination: No Hx Influenza Vaccination: Yes Hx Pneumococcal Vaccination: Yes Review Of Systems Except As Marked, All Systems Reviewed And Found Negative. Cardiovascular: Negative for: Chest Pain Respiratory: Negative for: Shortness of Breath Musculoskeletal: Positive for: Back Pain, Leg Pain (bilateral) Physical Exam - Physical Exam Appears: Well, No Acute Distress Skin: Warm, Dry, Jaundice Eye(s): bilateral: PERRL, EOMI, Scleral Icterus Nose: Normal Throat: Normal Neck: Normal Cardiovascular: Rhythm Regular Respiratory: Normal Breath Sounds Gastrointestinal/Abdominal: Normal Exam Back: Normal Inspection Extremity: Normal ROM, No Deformity, No Swelling Neurological/Psych: Oriented x3, Normal Motor, Normal Sensation ED Course And Treatment - Laboratory Results Result Diagrams: 03/16/17 05:43 03/16/17 05:43 O2 Sat by Pulse Oximetry: 100 (RA) Pulse Ox Interpretation: Normal Medical Decision Making Medical Decision Makin Initial plan: * Dilaudid 2mg IVP * labs 0543 Labs reviewed: white count 82326 Hemoglobin 7.2 LDH 928 Upon re-evaluation patient is still in pain. Will administer more pain medication.pt turned over to Dr. Moffett at change of shift. Disposition Counseled Patient/Family Regarding: Diagnosis, Need For Followup - Disposition Disposition: HOSPITALIZED Disposition Time: 07:18 Condition: STABLE Forms: [employer] ([place]ian) - Clinical Impression Clinical Impression: Sickle cell anemia with crisis - Scribe Statement Lisbeth Naranjo Provider Attestation: Scribe Attestation: Documented by Lisbeth Naranjo acting as a scribe for Rachid Mejia MD. Scribe Attestation: All medical record entries made by the Scribe were at my direction and personally dictated by me. I have reviewed the chart and agree that the record accurately reflects my personal performance of the history, physical exam, medical decision making, and the department course for this patient. I have also personally directed, reviewed, and agree with the discharge instructions and disposition.
[2017-03-16] MEDS: DiphenhydrAMINE 50 mg/ml Inj IVP PRN ×5 (10:19→22:47)
--- NOTE | 2017-03-16 16:39 | CP.PCM.HP ---
Past Patient History - Past Medical History & Family History Past Medical History?: Yes - Past Social History Smoking Status: Never Smoked - NEUROLOGICAL Hx Migraine: Yes - HEMATOLOGICAL/ONCOLOGICAL Hx Anemia: Yes Hx Sickle Cell Disease: Yes - MUSCULOSKELETAL/RHEUMATOLOGICAL Hx Falls: No - PSYCHIATRIC Hx Substance Use: No - SURGICAL HISTORY Hx Cholecystectomy: Yes (2003) - ANESTHESIA Hx Anesthesia: Yes Hx Anesthesia Reactions: No Meds Allergies/Adverse Reactions: Allergies Allergy/AdvReac Type Severity Reaction Status Date / Time droperidol Allergy Verified 03/09/17 16:48 tramadol Allergy Verified 03/09/17 16:48 inapsine Allergy RASH Uncoded 03/09/17 16:48 Physical Exam - Constitutional Appears: Well - Head Exam Head Exam: ATRAUMATIC, NORMAL INSPECTION, NORMOCEPHALIC - Eye Exam Eye Exam: EOMI, Normal appearance, PERRL Pupil Exam: NORMAL ACCOMODATION, PERRL - ENT Exam ENT Exam: Mucous Membranes Moist, Normal Exam - Neck Exam Neck exam: Positive for: Normal Inspection - Respiratory Exam Respiratory Exam: Decreased Breath Sounds - Cardiovascular Exam Cardiovascular Exam: REGULAR RHYTHM, +S1, +S2 - GI/Abdominal Exam GI & Abdominal Exam: Diminished Bowel Sounds, Soft - Rectal Exam Rectal Exam: Deferred Results - Vital Signs Recent Vital Signs: Last Vital Signs Temp 98.8 F 03/16/17 15:35 Pulse 107 H 03/16/17 15:35 Resp 18 03/16/17 15:35 BP 106/69 03/16/17 15:35 Pulse Ox 98 03/16/17 15:35 - Labs Result Diagrams: 03/16/17 05:43 03/16/17 05:43 Labs: Laboratory Results - last 24 hr 03/16/17 03/16/17 03/16/17 05:43 05:43 05:43 WBC 17.0 H RBC 2.54 L Hgb 7.2 L Hct 21.3 L MCV 84.0 D MCH 28.3 MCHC 33.7 RDW 17.8 H Plt Count 201 MPV 9.3 Neut % (Auto) 62.2 Lymph % (Auto) 22.1 [place] % (Auto) 9.4 Eos % (Auto) 3.8 Baso % (Auto) 2.5 H Neut # 10.6 H Lymph # 3.8 [place] # 1.6 H Eos # 0.6 Baso # 0.4 H Retic Count 5.3 H D Sodium 133 Potassium 4.1 Chloride 105 Carbon Dioxide 22 Anion Gap 11 BUN 22 H Creatinine 1.1 Est GFR ( Amer) > 60 Est GFR (Non-Af Amer) 56 Random Glucose 95 Calcium 8.1 L Total Bilirubin 2.2 H AST 115 H D ALT 72 H Alkaline Phosphatase 156 H Lactate Dehydrogenase 928 H Total Protein 8.9 H Albumin 3.5 Globulin 5.4 H Albumin/Globulin Ratio 0.7 L
[2017-03-17] MEDS: DiphenhydrAMINE 50 mg/ml Inj IVP PRN ×8 (01:42→23:27)
[2017-03-17] MEDS: Pantoprazole 40 mg EC Tab PO SCH (10:58)
[2017-03-17] MEDS: Enoxaparin 40 mg Syringe SC SCH (11:00)
[2017-03-17 11:05] LABS: BASO # 0.2 K/uL (0.0-0.2); BASO % 1.2 % (0.0-2.0); EOS # 1.1 K/uL (0.0-0.7); EOS % 5.8 % (0.0-4.0); LYMPH # 4.6 K/uL (1.0-4.3); MEAN CELL VOLUME 83.7 fL (81.0-99.0); MEAN CORPUSCULAR HEMOGLOBIN 28.5 pg (27.0-31.0); MONO # 2.3 K/uL (0.0-0.8); MONO % 12.1 % (0.0-10.0); NEUT # 10.9 K/uL (1.8-7.0); NEUT % 56.9 % (50.0-75.0); NRBC % 0.1 % (0.0-2.0); RBC 2.19 Mil/uL (3.80-5.20); RED CELL DISTRIBUTION WIDTH 18.1 % (11.5-14.5); WHITE BLOOD COUNT 19.1 K/uL (4.8-10.8)
[2017-03-17 11:10] LABS: HEMOGLOBIN 6.2 g/dL (11.0-16.0)
--- NOTE | 2017-03-17 16:42 | CP.PCM.PCO ---
Physician Communication Note - Physician Communication Note Physician Communication Note: as per Dr. Alba [place] no transfusion today, if hgb > 5 will transfuse
--- NOTE | 2017-03-17 18:07 | CP.PCM.CON ---
History of Present Illness - History of Present Illness History of Present Illness: admitted with sickle cell crisis cultures sent iv rx in progress Review of Systems - Constitutional Constitutional: As Per HPI, Anorexia - EENT Eyes: absent: As Per HPI, Blind Spots, Blurred Vision, Change in Vision, Decreased Night Vision, Diplopia, Discharge, Dry Eye, Exophthalmos, Floaters, Irritation, Itchy Eyes, Loss of Peripheral Vision, Pain, Photophobia, Requires Corrective Lenses, Sees Flashes, Spots in Vision, Tunnel Vision, Other Visual Disturbances, Loss of Vision, Other Ears: absent: As Per HPI, Decreased Hearing, Ear Discharge, Ear Pain, Tinnitus, Abnormal Hearing, Disequilibrium, Dizziness, Other Nose/Mouth/Throat: absent: As Per HPI, Epistaxis, Nasal Congestion, Nasal Discharge, Nasal Obstruction, Nasal Trauma, Nose Pain, Post Nasal Drip, Sinus Pain, Sinus Pressure, Bleeding Gums, Change in Voice, Dental Pain, Dry Mouth, Dysphagia, Halitosis, Hoarsness, Lip Swelling, Mouth Lesions, Mouth Pain, Odynophagia, Sore Throat, Throat Swelling, Tongue Swelling, Facial Pain, Neck Pain, Neck Mass, Other - Breasts Breasts: absent: As Per HPI, Change in Shape, Mass, Pain, Nipple Discharge, Nipple Inversion, Skin Changes, Swelling, Other - Cardiovascular Cardiovascular: absent: As Per HPI, Acrocyanosis, Chest Pain, Chest Pain at Rest , Chest Pain with Activity, Claudication, Diaphoresis, Dyspnea, Dyspnea on Exertion, Edema, Irregular Heart Rhythm, Pain Radiating to Arm/Neck/Jaw, Leg Edema, Leg Ulcers, Lightheadedness, Orthopnea, Palpitations, Paroxysmal Nocturnal Dyspnea, Pedal Edema, Radiating Pain, Rapid Heart Rate, Slow Heart Rate, Syncope, Other - Respiratory Respiratory: Cough - Gastrointestinal Gastrointestinal: absent: As Per HPI, Abdominal Pain, Belching, Bloating, Change in Bowel Habits, Change in Stool Character, Coffee Ground Emesis, Constipation, Cramping, Diarrhea, Dyspepsia, Dysphagia, Early Satiety, Excessive Flatus, Fecal Incontinence, Heartburn, Hematemesis, Hematochezia, Loose Stools, Melena, Nausea, Odynophagia, Temesmus, Vomiting, Other - Reproductive: Female Reproductive:Female: absent: As Per HPI, Amenorrhea, Amenorrhea/ Control, Currently Menstual, Cycle <21 Days, Cycle >35 Days, Cycle Variable, Menses 1-7 Days, Menses >/= 8 Days, Menses Variable, Cycle > 4 Weeks Between, No Menses for 6 Months, Heavy Menses, Light Menses, Normal Menses, Spotting Between Cycles , S/P Hysterectomy, Menopausal, Post Menopausal, Premenarche, Abnormal Vaginal Bleeding, Dysmenorrhea, Dyspareunia, Genital Lesions, Genital Pruritis, Pelvic Pain, Prolapse Symptoms, Sexual Dysfunction, Vaginal Discharge, Vaginal Dryness , Vaginal Odor, Vaginal Pruritis, Other - Menstruation Menstruation: absent: As Per HPI, Amenorrhea, Amenorrhea/ Control, Currently Menstual, Cycle <21 Days, Cycle >35 Days, Cycle Variable, Menses 1-7 Days, Menses >/= 8 Days, Menses Variable, Cycle > 4 Weeks Between, No Menses for 6 Months, Heavy Menses, Light Menses, Normal Menses, Spotting Between Cycles , S/P Hysterectomy, Menopausal, Post Menopausal, Premenarche, Abnormal Vaginal Bleeding, Dysmenorrhea, Other - Musculoskeletal Musculoskeletal: As Per HPI - Integumentary Integumentary: absent: As Per HPI, Acne, Alopecia, Bleeding Lesions, Change in Hair, Change in Nails, Change in Pigmentation, Changing Lesions, Dry Skin, Erythema, Furuncle, Hirsutism, Lesions, New Lesions, Non-Healing Lesions, Photosensitivity, Pruritus, Rash, Skin Pain, Skin Ulcer, Sores, Striae, Swelling , Unusual Bruising, Wounds, Jaundice, Other - Neurological Neurological: absent: As Per HPI, Abnormal Gait, Abnormal Hearing, Abnormal Movements, Abnormal Speech, Behavioral Changes, Burning Sensations, Confusion, Convulsions, Disequilibrium, Dizziness, Numbness, Focal Weakness, Frequent Falls , Headaches, Lack of Coordination, Loss of Vision, Memory Loss, Paresthesias, Radicular Pain, Restless Legs, Sensory Deficit, Syncope, Tingling, Tremor, Vertigo, Weakness, Other Visual Disturbances, Other - Psychiatric Psychiatric: absent: As Per HPI, Abnormal Sleep Pattern, Anhedonia, Anxiety, Auditory Hallucinations, Behavioral Changes, Change in Appetite, Change in Libido, Confusion, Depression, Difficulty Concentrating, Hallucinations, Homicidal Ideation, Hopelessness, Irritability, Memory Loss, Mood Swings, Panic Attacks, Paranoia, Suicidal Ideation, Visual Hallucinations, Tactile Hallucinations, Other Past Patient History - Past Medical History & Family History Past Medical History?: Yes - Past Social History Smoking Status: Never Smoked - NEUROLOGICAL Hx Migraine: Yes - HEMATOLOGICAL/ONCOLOGICAL Hx Anemia: Yes Hx Sickle Cell Disease: Yes - MUSCULOSKELETAL/RHEUMATOLOGICAL Hx Falls: No - PSYCHIATRIC Hx Substance Use: No - SURGICAL HISTORY Hx Cholecystectomy: Yes (2003) - ANESTHESIA Hx Anesthesia: Yes Hx Anesthesia Reactions: No Meds Allergies/Adverse Reactions: Allergies Allergy/AdvReac Type Severity Reaction Status Date / Time droperidol Allergy Verified 03/09/17 16:48 tramadol Allergy Verified 03/09/17 16:48 inapsine Allergy RASH Uncoded 03/09/17 16:48 - Medications Medications: Current Medications Diphenhydramine HCl (Benadryl) 25 mg IVP Q3 PRN PRN Reason: Itching / Pruritus Last Admin: 03/17/17 17:17 Dose: 25 mg Enoxaparin Sodium (Lovenox) 40 mg SC DAILY [facility] Last Admin: 03/17/17 11:00 Dose: Not Given Folic Acid (Folic Acid) 1 mg PO DAILY [facility] Last Admin: 03/17/17 10:58 Dose: 1 mg Hydromorphone HCl (Dilaudid) 2 mg IVP Q3 PRN PRN Reason: Pain, severe (8-10) Last Admin: 03/17/17 17:18 Dose: 2 mg Pantoprazole Sodium (Protonix Ec Tab) 40 mg PO DAILY [facility] Last Admin: 03/17/17 10:58 Dose: 40 mg Physical Exam - Constitutional Appears: Non-toxic, Chronically Ill - Head Exam Head Exam: NORMOCEPHALIC - Eye Exam Eye Exam: PERRL. absent: Scleral icterus - ENT Exam ENT Exam: Mucous Membranes Dry, Normal Oropharynx - Neck Exam Neck exam: Negative for: Lymphadenopathy - Respiratory Exam Respiratory Exam: Decreased Breath Sounds - Cardiovascular Exam Cardiovascular Exam: REGULAR RHYTHM - GI/Abdominal Exam GI & Abdominal Exam: Diminished Bowel Sounds, Soft. absent: Tenderness - Rectal Exam Rectal Exam: Deferred - Exam Exam: NORMAL INSPECTION - Extremities Exam Extremities exam: Negative for: pedal edema - Back Exam Back exam: absent: CVA tenderness (L), CVA tenderness (R) - Neurological Exam Neurological exam: Alert, CN II-XII Intact, Oriented x3, Reflexes Normal - Psychiatric Exam Psychiatric exam: Normal Mood - Skin Skin Exam: Dry Results - Vital Signs Recent Vital Signs: Last Vital Signs Temp 98.3 F 03/17/17 15:16 Pulse 77 03/17/17 15:16 Resp 18 03/17/17 15:16 BP 115/75 03/17/17 15:16 Pulse Ox 98 03/17/17 15:16 - Labs Result Diagrams: 03/17/17 11:00 03/16/17 05:43 Labs: Laboratory Results - last 24 hr 03/17/17 11:00 WBC 19.1 H RBC 2.19 L Hgb 6.2 L* Hct 18.3 L MCV 83.7 MCH 28.5 MCHC 34.0 RDW 18.1 H Plt Count 185 MPV 9.0 Neut % (Auto) 56.9 Lymph % (Auto) 24.0 [place] % (Auto) 12.1 H Eos % (Auto) 5.8 H Baso % (Auto) 1.2 Neut # 10.9 H Lymph # 4.6 H [place] # 2.3 H Eos # 1.1 H Baso # 0.2 Assessment & Plan (1) Sickle cell anemia with pain Status: Acute (2) Leukocytosis Status: Acute - Assessment and Plan (Free Text) Assessment: send cultures iv rocephin added
[2017-03-17] MEDS ORDERED: cefTRIAXone 1 gm 1 GM/100 ML BAG IVPB SCH (19:00)
--- NOTE | 2017-03-17 19:27 | CP.PCM.PN ---
Subjective - Date & Time of Evaluation Date of Evaluation: 03/17/17 Time of Evaluation: 11:00 - Subjective Subjective: clinically same Objective - Vital Signs/Intake and Output Vital Signs (last 24 hours): Temp Pulse Resp BP Pulse Ox 98.3 F 77 18 115/75 98 03/17/17 15:16 03/17/17 15:16 03/17/17 15:16 03/17/17 15:16 03/17/17 15:16 - Medications Medications: Current Medications Diphenhydramine HCl (Benadryl) 25 mg IVP Q3 PRN PRN Reason: Itching / Pruritus Last Admin: 03/17/17 17:17 Dose: 25 mg Enoxaparin Sodium (Lovenox) 40 mg SC DAILY [facility] Last Admin: 03/17/17 11:00 Dose: Not Given Folic Acid (Folic Acid) 1 mg PO DAILY [facility] Last Admin: 03/17/17 10:58 Dose: 1 mg Hydromorphone HCl (Dilaudid) 2 mg IVP Q3 PRN PRN Reason: Pain, severe (8-10) Last Admin: 03/17/17 17:18 Dose: 2 mg Ceftriaxone Sodium 1 gm/ (Sodium Chloride) 100 mls @ 200 mls/hr IVPB Q24H [facility] Pantoprazole Sodium (Protonix Ec Tab) 40 mg PO DAILY [facility] Last Admin: 03/17/17 10:58 Dose: 40 mg - Labs Labs: 03/17/17 11:00 03/16/17 05:43
[2017-03-17 22:24] LABS: SQUAMOUS EPITHIAL 2 /hpf (0-5); URINE BACTERIA MANY (<OCC); URINE BILIRUBIN NEGATIVE (NEGATIVE); URINE BLOOD 2+ (NEGATIVE); URINE CLARITY Hazy (Clear); URINE COLOR Yellow (YELLOW); URINE GLUCOSE (UA) NORMAL (Normal); URINE LEUKOCYTE ESTERASE 3+ Leu/uL (Negative); URINE NITRATE NEGATIVE (NEGATIVE); URINE PROTEIN 2+ mg/dL (NEGATIVE); URINE UROBILINOGEN NORMAL mg/dL (0.2-1.0); WBC CLUMPS MANY /hpf
[2017-03-18] MEDS: DiphenhydrAMINE 50 mg/ml Inj IVP PRN ×7 (02:30→20:58)
--- NOTE | 2017-03-18 08:59 | RAD ---
Chest x-ray single frontal view History: Pneumonia. Comparison: 03/09/2007 Findings: Right chest wall port in stable position. Spinal hardware in place. Bilateral nephroureteral stents in place. Mild venous congestion. Right paratracheal prominence may be related to prominent vasculature. Clinical correlation. Patchy increased markings at the right lung base. Deformities of several right lateral ribs. Tortuous aorta. Top normal heart size. Impression: Right chest wall port in stable position. Spinal hardware in place. Bilateral nephroureteral stents in place. Mild venous congestion. Right paratracheal prominence may be related to prominent vasculature. Clinical correlation. Patchy increased markings at the right lung base. Deformities of several right lateral ribs. Tortuous aorta. Top normal heart size.
[2017-03-18] MEDS: Enoxaparin 40 mg Syringe SC SCH (09:28)
[2017-03-18] MEDS: Pantoprazole 40 mg EC Tab PO SCH (09:48)
--- NOTE | 2017-03-18 09:56 | CP.PCM.PN ---
Subjective - Date & Time of Evaluation Date of Evaluation: 03/18/17 Time of Evaluation: 09:52 - Subjective Subjective: PGY2 progress note for Dr. Hernandez 36 year old female with PMHx of sickle cell anemia was admitted to hospital for intractable pain due to sickle cell crisis. Pt seen and examined at bedside. No acute events overnight. Pt is seen walking around. Still complaining of low back pain. Denies having any CP, SOB, abd pain, N/V/D/C, F/C. Patient states that she has a neurogenic bladder and often requires straight cath. Tolerating diet. 12 point ROS negative except for the above mentioned. Objective - Vital Signs/Intake and Output Vital Signs (last 24 hours): Temp Pulse Resp BP Pulse Ox 98.5 F 105 H 98 H 113/81 20 L 03/18/17 08:00 03/18/17 08:00 03/18/17 08:00 03/18/17 08:00 03/18/17 08:00 Intake and Output: 03/18/17 03/18/17 06:59 18:59 Intake Total 460 Balance 460 - Medications Medications: Current Medications Diphenhydramine HCl (Benadryl) 25 mg IVP Q3 PRN PRN Reason: Itching / Pruritus Last Admin: 03/18/17 08:52 Dose: 25 mg Enoxaparin Sodium (Lovenox) 40 mg SC DAILY [facility] Last Admin: 03/18/17 09:28 Dose: Not Given Folic Acid (Folic Acid) 1 mg PO DAILY [facility] Last Admin: 03/18/17 09:48 Dose: 1 mg Hydromorphone HCl (Dilaudid) 2 mg IVP Q3 PRN PRN Reason: Pain, severe (8-10) Last Admin: 03/18/17 08:52 Dose: 2 mg Ceftriaxone Sodium 1 gm/ (Sodium Chloride) 100 mls @ 200 mls/hr IVPB Q24H [facility] Last Admin: 03/17/17 20:47 Dose: 200 mls/hr Pantoprazole Sodium (Protonix Ec Tab) 40 mg PO DAILY [facility] Last Admin: 03/18/17 09:48 Dose: 40 mg - Labs Labs: 03/17/17 11:00 03/16/17 05:43 - Constitutional Appears: Well, Non-toxic, No Acute Distress - Head Exam Head Exam: ATRAUMATIC - ENT Exam ENT Exam: Mucous Membranes Moist - Respiratory Exam Respiratory Exam: Clear to Ausculation Bilateral, NORMAL BREATHING PATTERN. absent: Rales, Rhonchi, Wheezes - Cardiovascular Exam Cardiovascular Exam: REGULAR RHYTHM, +S1, +S2. absent: Gallop, Rubs, Murmur - GI/Abdominal Exam GI & Abdominal Exam: Soft, Normal Bowel Sounds. absent: Distended, Firm, Guarding, Rigid, Tenderness, Organomegaly - Neurological Exam Neurological Exam: Alert, Awake, Oriented x3 - Psychiatric Exam Psychiatric exam: Normal Affect, Normal Mood - Skin Skin Exam: Dry, Intact, Normal Color, Warm Assessment and Plan - Assessment and Plan (Free Text) Assessment: 36 year old female with past medical history of sickle cell anemia is admitted for sickle cell pain Sickle cell crisis Pt is noted to have Hgb of 6.2 yesterday. CBC from this morning is pending. Retic count yesterday was 5.3. Will repeat value today Type and scree ordered. Patient's last transfusion of PRBC was on last admission 1 week ago. Will consider consulting heme/onc On admission, CXR was negative Pain management with dilaudid 1 mg IVP q3 prn Continue folic acid UTI Urinalysis on presentation was positive ID is consulted Pt started on rocephin urine and blood cultures pending Prophylaxis Protonix Lovenox All managements and orders per Dr. Hernandez
[2017-03-18] MEDS ORDERED: cefTRIAXone IV 1 gm in Dextros 50 ML IVPB SCH (10:00)
[2017-03-18 10:27] LABS: BASO # 0.3 K/uL (0.0-0.2); BASO % 1.4 % (0.0-2.0); EOS # 1.4 K/uL (0.0-0.7); LYMPH # 4.3 K/uL (1.0-4.3); LYMPH % 18.9 % (20.0-40.0); MEAN CELL VOLUME 84.3 fL (81.0-99.0); MEAN CORPUSCULAR HEMOGLOBIN 29.3 pg (27.0-31.0); MEAN CORPUSCULAR HGB CONC 34.8 g/dL (33.0-37.0); MEAN PLATELET VOLUME 9.6 fL (7.2-11.7); MONO # 2.6 K/uL (0.0-0.8); MONO % 11.4 % (0.0-10.0); NEUT # 14.3 K/uL (1.8-7.0); NEUT % 62.3 % (50.0-75.0); NRBC % 0.3 % (0.0-2.0); RBC 2.14 Mil/uL (3.80-5.20); RED CELL DISTRIBUTION WIDTH 17.9 % (11.5-14.5); WHITE BLOOD COUNT 22.9 K/uL (4.8-10.8)
[2017-03-18 10:35] LABS: HEMOGLOBIN 6.3 g/dL (11.0-16.0)
[2017-03-18 10:39] LABS: INR 1.2; PROTHROMBIN TIME 14.1 SECONDS (9.7-12.2)
[2017-03-18 10:48] LABS: ALB/GLOB RATIO 0.7 (1.0-2.1); ALBUMIN 3.5 g/dL (3.5-5.0)
--- NOTE | 2017-03-18 11:52 | CP.PCM.PN ---
Subjective - Date & Time of Evaluation Date of Evaluation: 03/18/17 Time of Evaluation: 07:40 - Subjective Subjective: clinically same Objective - Vital Signs/Intake and Output Vital Signs (last 24 hours): Temp Pulse Resp BP Pulse Ox 98.5 F 105 H 98 H 113/81 20 L 03/18/17 08:00 03/18/17 08:00 03/18/17 08:00 03/18/17 08:00 03/18/17 08:00 Intake and Output: 03/18/17 03/18/17 06:59 18:59 Intake Total 460 Balance 460 - Medications Medications: Current Medications Diphenhydramine HCl (Benadryl) 25 mg IVP Q3 PRN PRN Reason: Itching / Pruritus Last Admin: 03/18/17 08:52 Dose: 25 mg Enoxaparin Sodium (Lovenox) 40 mg SC DAILY [facility] Last Admin: 03/18/17 09:28 Dose: Not Given Folic Acid (Folic Acid) 1 mg PO DAILY [facility] Last Admin: 03/18/17 09:48 Dose: 1 mg Hydromorphone HCl (Dilaudid) 2 mg IVP Q3 PRN PRN Reason: Pain, severe (8-10) Last Admin: 03/18/17 08:52 Dose: 2 mg Ceftriaxone Sodium 1 gm/ (Sodium Chloride) 100 mls @ 200 mls/hr IVPB Q24H [facility] Last Admin: 03/17/17 20:47 Dose: 200 mls/hr Pantoprazole Sodium (Protonix Ec Tab) 40 mg PO DAILY [facility] Last Admin: 03/18/17 09:48 Dose: 40 mg - Labs Labs: 03/18/17 10:07 03/18/17 10:07 PT 14.1 SECONDS (9.7-12.2) H 03/18/17 10:07 INR 1.2 03/18/17 10:07 APTT 32 SECONDS (21-34) 03/18/17 10:07 - Constitutional Appears: Well - Head Exam Head Exam: ATRAUMATIC, NORMAL INSPECTION, NORMOCEPHALIC - Eye Exam Eye Exam: EOMI, Normal appearance, PERRL Pupil Exam: NORMAL ACCOMODATION, PERRL - ENT Exam ENT Exam: Mucous Membranes Moist, Normal Exam - Neck Exam Neck Exam: Full ROM, Normal Inspection. absent: Lymphadenopathy - Respiratory Exam Respiratory Exam: Decreased Breath Sounds - Cardiovascular Exam Cardiovascular Exam: REGULAR RHYTHM, +S1, +S2 - GI/Abdominal Exam GI & Abdominal Exam: Soft, Diminished Bowel Sounds - Rectal Exam Rectal Exam: Deferred
--- NOTE | 2017-03-18 19:28 | CP.PCM.PN ---
Subjective - Date & Time of Evaluation Date of Evaluation: 03/18/17 Time of Evaluation: 07:00 - Subjective Subjective: cultures so far neg wbc higher rx ordered Objective - Vital Signs/Intake and Output Vital Signs (last 24 hours): Temp Pulse Resp BP Pulse Ox 98.8 F 100 H 97 H 109/72 20 L 03/18/17 16:00 03/18/17 16:00 03/18/17 16:00 03/18/17 16:00 03/18/17 16:00 Intake and Output: 03/18/17 03/19/17 18:59 06:59 Intake Total 450 Balance 450 - Medications Medications: Current Medications Diphenhydramine HCl (Benadryl) 25 mg IVP Q3 PRN PRN Reason: Itching / Pruritus Last Admin: 03/18/17 17:44 Dose: 25 mg Enoxaparin Sodium (Lovenox) 40 mg SC DAILY [facility] Last Admin: 03/18/17 09:28 Dose: Not Given Folic Acid (Folic Acid) 1 mg PO DAILY [facility] Last Admin: 03/18/17 09:48 Dose: 1 mg Hydromorphone HCl (Dilaudid) 1 mg IVP Q3 PRN PRN Reason: Pain, severe (8-10) Last Admin: 03/18/17 17:46 Dose: 1 mg Ceftriaxone Sodium 1 gm/ (Sodium Chloride) 100 mls @ 200 mls/hr IVPB Q24H [facility] Last Admin: 03/18/17 18:06 Dose: 200 mls/hr Sodium Chloride (Sodium Chloride 0.45%) 500 mls @ 75 mls/hr IV .Q6H40M [facility] Last Admin: 03/18/17 17:52 Dose: 75 mls/hr Pantoprazole Sodium (Protonix Ec Tab) 40 mg PO DAILY [facility] Last Admin: 03/18/17 09:48 Dose: 40 mg - Labs Labs: 03/18/17 10:07 03/18/17 10:07 PT 14.1 SECONDS (9.7-12.2) H 03/18/17 10:07 INR 1.2 03/18/17 10:07 APTT 32 SECONDS (21-34) 03/18/17 10:07 - Constitutional Appears: Non-toxic, Chronically Ill - Head Exam Head Exam: NORMOCEPHALIC - Eye Exam Eye Exam: PERRL - ENT Exam ENT Exam: Mucous Membranes Dry - Neck Exam Neck Exam: absent: Lymphadenopathy - Respiratory Exam Respiratory Exam: Decreased Breath Sounds - Cardiovascular Exam Cardiovascular Exam: REGULAR RHYTHM - GI/Abdominal Exam GI & Abdominal Exam: Distended, Soft Assessment and Plan (1) Sickle cell anemia with pain Status: Acute (2) Leukocytosis Status: Acute
[2017-03-19] MEDS: DiphenhydrAMINE 50 mg/ml Inj IVP PRN ×4 (00:25→09:51)
[2017-03-19 01:31] VITALS: RESP 20
[2017-03-19 07:37] LABS: BASO # 0.2 K/uL (0.0-0.2); BASO % 0.8 % (0.0-2.0); EOS # 1.2 K/uL (0.0-0.7); EOS % 5.3 % (0.0-4.0); LYMPH # 6.1 K/uL (1.0-4.3); LYMPH % 25.8 % (20.0-40.0); MEAN CELL VOLUME 85.4 fL (81.0-99.0); MEAN CORPUSCULAR HEMOGLOBIN 29.9 pg (27.0-31.0); MEAN CORPUSCULAR HGB CONC 35.1 g/dL (33.0-37.0); MEAN PLATELET VOLUME 9.8 fL (7.2-11.7); MONO # 2.2 K/uL (0.0-0.8); MONO % 9.4 % (0.0-10.0); NEUT # 13.9 K/uL (1.8-7.0); NEUT % 58.7 % (50.0-75.0); NRBC % 0.3 % (0.0-2.0); RBC 2.04 Mil/uL (3.80-5.20); RED CELL DISTRIBUTION WIDTH 18.4 % (11.5-14.5); WHITE BLOOD COUNT 23.7 K/uL (4.8-10.8)
[2017-03-19 07:48] LABS: HEMOGLOBIN 6.1 g/dL (11.0-16.0)
[2017-03-19 08:08] LABS: ALBUMIN 3.5 g/dL (3.5-5.0); ALT/SGPT 58 U/L (9-52); AST/SGOT 97 U/L (14-36); BLOOD UREA NITROGEN 22 mg/dL (7-17); CALCIUM 7.9 mg/dl (8.6-10.4); GFR AFRICAN-AMERICAN > 60; GFR NON-AFRICAN AMERICAN 50
[2017-03-19 08:11] LABS: ALB/GLOB RATIO 0.7 (1.0-2.1)
[2017-03-19 08:22] VITALS: BP 108/70; PULSE 106; TEMP 98.1; O2SAT 97
[2017-03-19] MEDS: Pantoprazole 40 mg EC Tab PO SCH (09:51)
[2017-03-19] MEDS: Enoxaparin 40 mg Syringe SC SCH (09:52)
--- NOTE | 2017-03-19 12:05 | CP.PCM.PN ---
Subjective - Date & Time of Evaluation Date of Evaluation: 03/19/17 Time of Evaluation: 12:02 - Subjective Subjective: PGY2 progress note for Dr. Hernandez Pt seen and examined at bedside. Pt is seen walking around without difficulty. Pt denies having any back pain, leg pain, CP, SOB, abd pain, N/V/D/C. Pt tolerating diet. 12 point ROS negative except for above mentioned. Objective - Vital Signs/Intake and Output Vital Signs (last 24 hours): Temp Pulse Resp BP Pulse Ox 98.1 F 106 H 20 108/70 97 03/19/17 08:00 03/19/17 08:00 03/19/17 08:00 03/19/17 08:00 03/19/17 08:00 Intake and Output: 03/19/17 03/19/17 06:59 18:59 Intake Total 0 Balance 1910 - Medications Medications: Current Medications Diphenhydramine HCl (Benadryl) 25 mg IVP Q3 PRN PRN Reason: Itching / Pruritus Last Admin: 03/19/17 09:51 Dose: 25 mg Enoxaparin Sodium (Lovenox) 40 mg SC DAILY [facility] Last Admin: 03/19/17 09:52 Dose: Not Given Folic Acid (Folic Acid) 1 mg PO DAILY [facility] Last Admin: 03/19/17 09:51 Dose: 1 mg Hydromorphone HCl (Dilaudid) 1 mg IVP Q3 PRN PRN Reason: Pain, severe (8-10) Last Admin: 03/19/17 09:52 Dose: 1 mg Ceftriaxone Sodium 1 gm/ (Sodium Chloride) 100 mls @ 200 mls/hr IVPB Q24H [facility] Last Admin: 03/18/17 18:06 Dose: 200 mls/hr Sodium Chloride (Sodium Chloride 0.45%) 500 mls @ 75 mls/hr IV .Q6H40M [facility] Last Admin: 03/19/17 09:58 Dose: Not Given Pantoprazole Sodium (Protonix Ec Tab) 40 mg PO DAILY [facility] Last Admin: 03/19/17 09:51 Dose: 40 mg - Labs Labs: 03/19/17 07:12 03/19/17 07:12 PT 14.1 SECONDS (9.7-12.2) H 03/18/17 10:07 INR 1.2 03/18/17 10:07 APTT 32 SECONDS (21-34) 03/18/17 10:07 - Constitutional Appears: Non-toxic, No Acute Distress - Head Exam Head Exam: ATRAUMATIC - ENT Exam ENT Exam: Mucous Membranes Moist - Respiratory Exam Respiratory Exam: Clear to Ausculation Bilateral. absent: Accessory Muscle Use , Rales, Rhonchi, Wheezes, Respiratory Distress - Cardiovascular Exam Cardiovascular Exam: REGULAR RHYTHM, +S1, +S2. absent: Gallop, Rubs, Murmur - GI/Abdominal Exam GI & Abdominal Exam: Soft, Normal Bowel Sounds. absent: Distended, Firm, Guarding, Rigid, Tenderness, Organomegaly - Extremities Exam Extremities Exam: absent: Pedal Edema, Tenderness - Neurological Exam Neurological Exam: Alert, Awake, Oriented x3 - Psychiatric Exam Psychiatric exam: Normal Affect, Normal Mood - Skin Skin Exam: Dry, Intact, Normal Color, Warm Assessment and Plan - Assessment and Plan (Free Text) Assessment: 36 year old female with past medical history of sickle cell anemia is admitted for sickle cell pain Sickle cell crisis Hgb stable this morning at 6.1. Retic count slightly increased to 6.2 Type and scree ordered. Patient's last transfusion of PRBC was on last admission 1 week ago. On admission, CXR was negative Pain management with dilaudid 1 mg IVP q3 prn Continue folic acid UTI Urinalysis on presentation was positive ID is consulted Pt started on rocephin urine and blood cultures pending Leukocytosis Likely due to UTI Will continue to monitor Prophylaxis Protonix Lovenox All managements and orders per Dr. Hernandez Patient is stable for discharge per Dr. Hernandez. Patient is to follow up with PMD upon discharge. Patient is to continue taking home medications as prescribed. Patient will be given refill for Folic acid 1 mg PO QD. Patient will also be given Augmentin 875/125 mg PO BID x 5 days #10 tabs.
[2017-03-20] MEDS ORDERED: Influenza Vaccine 60 mcg/0.5 mL SYR (4YR UP) IM ONE (10:00)
[2017-03-20] MEDS ORDERED: Pneumococcal 23-Valent Vaccine IM ONE (14:24)
== END 2017-03-19 17:01 | disposition home or self-care (01) | DRG 812 ==
LOC: C.ER 01:27 → C.9E 08:59 → C.6T 14:16 → C.3T 03-17 22:03 → OBSVTOIN 03-18 12:42
PROVIDERS: ADMIT Internal Medicine Nephrology; ATTEND Internal Medicine Nephrology
DX: D57.00 Hb-SS disease with crisis, unspecified (principal); N31.9 Neuromuscular dysfunction of bladder, unspecified; N39.0 Urinary tract infection, site not specified

== ENCOUNTER 2017-03-26 01:59 | Inpatient (IN) | payer MEDICARE ==
[2017-03-26 02:00] VITALS: BMI 22.4
[2017-03-26] MEDS ORDERED: Sodium Chloride 0.9% 1,000 ML IV ONE (02:55)
[2017-03-26] MEDS ORDERED: Sodium Chloride 0.9% 1,000 ML ONE (03:09)
[2017-03-26 03:50] LABS: ALB/GLOB RATIO 0.7 (1.0-2.1); ALBUMIN 3.4 g/dL (3.5-5.0); ALT/SGPT 70 U/L (9-52); AST/SGOT 99 U/L (14-36); BLOOD UREA NITROGEN 18 mg/dL (7-17); CALCIUM 7.9 mg/dl (8.6-10.4); GFR AFRICAN-AMERICAN > 60; GFR NON-AFRICAN AMERICAN > 60
[2017-03-26 04:12] LABS: BASO # 0.3 K/uL (0.0-0.2); BASO % 1.1 % (0.0-2.0); EOS # 0.7 K/uL (0.0-0.7); EOS % 2.4 % (0.0-4.0); LYMPH # 4.9 K/uL (1.0-4.3); LYMPH % 17.3 % (20.0-40.0); MEAN CELL VOLUME 87.2 fL (81.0-99.0); MEAN CORPUSCULAR HEMOGLOBIN 28.6 pg (27.0-31.0); MEAN CORPUSCULAR HGB CONC 32.8 g/dL (33.0-37.0); MONO # 2.4 K/uL (0.0-0.8); MONO % 8.6 % (0.0-10.0); NEUT # 19.8 K/uL (1.8-7.0); NEUT % 70.6 % (50.0-75.0); NRBC % 0.5 % (0.0-2.0); RBC 1.91 Mil/uL (3.80-5.20); RED CELL DISTRIBUTION WIDTH 18.9 % (11.5-14.5)
[2017-03-26 04:18] LABS: HEMOGLOBIN 5.5 g/dL (11.0-16.0)
[2017-03-26 04:23] LABS: SQUAMOUS EPITHIAL 4 /hpf (0-5); URINE BACTERIA MANY (<OCC); WBC CLUMPS MANY /hpf
--- NOTE | 2017-03-26 04:30 | C.PDOC ---
History Of Present Illness 36 year old female presents to the ER with a complaint of lower back pain and leg pain for the past 3 days. Patient has a Hx of sick cell anemia and reports the pain is similar to prior crisis. Denies chest pain, SOB, cough, fever, or abdominal pain. Time Seen by Provider: 03/26/17 02:47 Chief Complaint (Nursing): Back Pain History Per: Patient History/Exam Limitations: no limitations Onset/Duration Of Symptoms: Days Current Symptoms Are (Timing): Still Present Quality Of Discomfort: Unable To Describe Previous Symptoms: Other (Hx of sickle cell anemia) Associated Symptoms: None Recent travel outside of the [place]: No Past Medical History Reviewed: Historical Data, Nursing Documentation, Vital Signs Vital Signs: Last Vital Signs Temp 98.2 F 03/26/17 02:16 Pulse 112 H 03/26/17 02:16 Resp 22 03/26/17 02:16 BP 111/88 03/26/17 02:16 Pulse Ox 98 03/26/17 05:04 - Medical History PMH: Anemia, Migraine, Sickle Cell Disease Surgical History: Cholecystectomy (2003) - [facility] Procedures PACKED CELL TRANSFUSION (07/26/12) TETANUS TOXOID ADMINIST (11/14/12) TRANSFUSE NONAUT RED BLOOD CELLS IN PERIPH VEIN, PERC (03/09/17) Family History: States: Unknown Family Hx - Social History Hx Tobacco Use: No Hx Alcohol Use: No Hx Substance Use: No - Immunization History Hx Tetanus Toxoid Vaccination: No Hx Influenza Vaccination: Yes Hx Pneumococcal Vaccination: Yes Review Of Systems Except As Marked, All Systems Reviewed And Found Negative. Musculoskeletal: Positive for: Back Pain, Leg Pain Physical Exam - Physical Exam Appears: Other (Mildly uncomfortable, Thin) Skin: Normal Color, Warm, Dry Head: Atraumatic, Normacephalic Eye(s): bilateral: Normal Inspection Oral Mucosa: Moist Neck: Normal, Supple Chest: No Tenderness, Other (Portacath to right upper chest) Cardiovascular: Rhythm Regular Respiratory: Normal Breath Sounds, No Rales, No Rhonchi, No Wheezing Gastrointestinal/Abdominal: Soft, No Tenderness Back: No CVA Tenderness, No Vertebral Tenderness, Paraspinal Tenderness (Lumbar) Extremity: Normal ROM (x4), No Tenderness, Capillary Refill (<2 seconds) Pulses: Left Dorsalis Pedis: Normal, Right Dorsalis Pedis: Normal Neurological/Psych: Oriented x3, Normal Speech ED Course And Treatment - Laboratory Results Result Diagrams: 03/26/17 04:09 03/26/17 03:32 O2 Sat by Pulse Oximetry: 98 (room air) Pulse Ox Interpretation: Normal Progress Note: Blood work, urinalysis, and CXR ordered. IV fluids, benadryl, and dilaudid administered. Plan is to transfuse and admit. - Physician Consult Information Physician Contacted: Rosalina Hernandez Outcome Of Conversation: Discussed patient with Dr. Alba Hernandez, patient admitted under his service - will be cared for by Dr. Ha because he is away for the weekend. Dr. Ha aware and in agreement. Disposition - Disposition Forms: [employer] (Turkmen) - Scribe Statement The provider has reviewed the documentation as recorded by the Scribe Bright Gordon All medical record entries made by the Scribe were at my direction and personally dictated by me. I have reviewed the chart and agree that the record accurately reflects my personal performance of the history, physical exam, medical decision making, and the department course for this patient. I have also personally directed, reviewed, and agree with the discharge instructions and disposition.
[2017-03-26 04:34] LABS: HCG,QUALITATIVE URINE NEGATIVE (NEGATIVE)
[2017-03-26 04:39] LABS: URINE BILIRUBIN NEGATIVE (NEGATIVE); URINE BLOOD TRACE (NEGATIVE); URINE CLARITY Turbid (Clear); URINE COLOR YELLOW (YELLOW); URINE GLUCOSE (UA) NEGATIVE (Normal); URINE PROTEIN 30 mg/dL (NEGATIVE)
[2017-03-26 04:40] LABS: URINE LEUKOCYTE ESTERASE LARGE Leu/uL (Negative); URINE NITRATE NEGATIVE (NEGATIVE); URINE UROBILINOGEN 0.2 mg/dL (0.2-1.0)
--- NOTE | 2017-03-26 08:46 | RAD ---
PROCEDURE: CHEST RADIOGRAPH, 1 VIEW HISTORY: admission COMPARISON: 03/17/2017 FINDINGS: LUNGS: Opacity at right lateral base. Possible pneumonia. Followup advised. . . PLEURA: Blunting of right costophrenic angle may reflect pleural effusion or chronic pleural thickening. CARDIOVASCULAR: Right central venous infusion port. OSSEOUS STRUCTURES: Moreira rods. VISUALIZED UPPER ABDOMEN: Normal. OTHER FINDINGS: None. IMPRESSION: Opacity at right lateral base, possible early pneumonia. Followup advised.
[2017-03-26] MEDS ORDERED: HYDROmorphone 1 mg/ml ISec IVP PRN (10:16)
[2017-03-26] MEDS ORDERED: DiphenhydrAMINE 50 mg/ml Inj IVP PRN (10:17)
[2017-03-26] MEDS: Sodium Chloride 0.9% 1,000 ML IV SCH ×2 (10:30→21:28)
[2017-03-26] MEDS: DiphenhydrAMINE 50 mg/ml Inj IVP PRN ×3 (15:12→21:27)
--- NOTE | 2017-03-26 15:37 | CP.PCM.PN ---
Subjective - Date & Time of Evaluation Date of Evaluation: 03/26/17 Time of Evaluation: 15:37 Objective - Vital Signs/Intake and Output Vital Signs (last 24 hours): Temp Pulse Resp BP Pulse Ox 98.6 F 98 H 20 107/75 98 03/26/17 14:32 03/26/17 15:10 03/26/17 14:32 03/26/17 15:10 03/26/17 11:00 Intake and Output: 03/26/17 03/26/17 06:59 18:59 Intake Total 925 Balance 925 - Medications Medications: Current Medications Diphenhydramine HCl (Benadryl) 25 mg IVP Q3 PRN PRN Reason: Itching / Pruritus Last Admin: 03/26/17 15:12 Dose: 25 mg Folic Acid (Folic Acid) 1 mg PO DAILY [facility] Last Admin: 03/26/17 11:01 Dose: 1 mg Hydromorphone HCl (Dilaudid) 1 mg IVP Q3 PRN PRN Reason: Pain, moderate (4-7) Last Admin: 03/26/17 15:11 Dose: 1 mg Sodium Chloride (Sodium Chloride 0.9%) 1,000 mls @ 100 mls/hr IV .Q10H [facility] Last Admin: 03/26/17 10:30 Dose: 100 mls/hr Ceftriaxone Sodium (Rocephin Iv 1 Gm Duplex) 50 mls @ 100 mls/hr IVPB DAILY [facility] - Labs Labs: 03/26/17 04:09 03/26/17 03:32
[2017-03-26] MEDS: cefTRIAXone IV 1 gm in Dextros 50 ML IVPB SCH (17:00)
[2017-03-27] MEDS: DiphenhydrAMINE 50 mg/ml Inj IVP PRN ×8 (00:37→22:15)
[2017-03-27] MEDS: Sodium Chloride 0.9% 1,000 ML IV SCH ×2 (03:37→16:43)
[2017-03-27] MEDS: cefTRIAXone IV 1 gm in Dextros 50 ML IVPB SCH (10:00)
--- NOTE | 2017-03-27 17:47 | CP.PCM.PN ---
Subjective - Date & Time of Evaluation Date of Evaluation: 03/27/17 Time of Evaluation: 17:47 Objective - Vital Signs/Intake and Output Vital Signs (last 24 hours): Temp Pulse Resp BP Pulse Ox 99.5 F 100 H 20 109/72 100 03/27/17 16:00 03/27/17 16:00 03/27/17 16:00 03/27/17 16:00 03/27/17 16:00 Intake and Output: 03/27/17 03/27/17 06:59 18:59 Intake Total 1280 1040 Balance 1280 1040 - Medications Medications: Current Medications Diphenhydramine HCl (Benadryl) 25 mg IVP Q3 PRN PRN Reason: Itching / Pruritus Last Admin: 03/27/17 16:14 Dose: 25 mg Folic Acid (Folic Acid) 1 mg PO DAILY [facility] Last Admin: 03/27/17 09:56 Dose: 1 mg Hydromorphone HCl (Dilaudid) 1 mg IVP Q3 PRN PRN Reason: Pain, moderate (4-7) Last Admin: 03/27/17 16:14 Dose: 1 mg Sodium Chloride (Sodium Chloride 0.9%) 1,000 mls @ 100 mls/hr IV .Q10H [facility] Last Admin: 03/27/17 16:43 Dose: 100 mls/hr Ceftriaxone Sodium (Rocephin Iv 1 Gm Duplex) 50 mls @ 100 mls/hr IVPB DAILY [facility] Last Admin: 03/27/17 10:00 Dose: 100 mls/hr - Labs Labs: 03/26/17 04:09 03/26/17 03:32
[2017-03-28] MEDS: DiphenhydrAMINE 50 mg/ml Inj IVP PRN ×7 (01:41→20:30)
[2017-03-28] MEDS: Sodium Chloride 0.9% 1,000 ML IV SCH ×2 (06:27→22:06)
[2017-03-28 07:37] LABS: HEMOGLOBIN 6.6 g/dL (11.0-16.0); MEAN CORPUSCULAR HEMOGLOBIN 28.6 pg (27.0-31.0); MEAN CORPUSCULAR HGB CONC 33.3 g/dL (33.0-37.0); MEAN PLATELET VOLUME 9.3 fL (7.2-11.7); RBC 2.32 Mil/uL (3.80-5.20); RED CELL DISTRIBUTION WIDTH 18.2 % (11.5-14.5); WHITE BLOOD COUNT 25.8 K/uL (4.8-10.8)
[2017-03-28] MEDS: cefTRIAXone IV 1 gm in Dextros 50 ML IVPB SCH (10:08)
--- NOTE | 2017-03-28 14:21 | CP.PCM.PN ---
Subjective - Date & Time of Evaluation Date of Evaluation: 03/28/17 Time of Evaluation: 14:21 Objective - Vital Signs/Intake and Output Vital Signs (last 24 hours): Temp Pulse Resp BP Pulse Ox 98.6 F 106 H 20 117/80 100 03/28/17 08:25 03/28/17 08:25 03/28/17 08:25 03/28/17 08:25 03/28/17 08:25 Intake and Output: 03/28/17 03/28/17 06:59 18:59 Intake Total 2079 Balance 2079 - Medications Medications: Current Medications Diphenhydramine HCl (Benadryl) 25 mg IVP Q3 PRN PRN Reason: Itching / Pruritus Last Admin: 03/28/17 11:13 Dose: 25 mg Folic Acid (Folic Acid) 1 mg PO DAILY [facility] Last Admin: 03/28/17 10:09 Dose: 1 mg Hydromorphone HCl (Dilaudid) 1 mg IVP Q3 PRN PRN Reason: Pain, moderate (4-7) Last Admin: 03/28/17 11:15 Dose: 1 mg Sodium Chloride (Sodium Chloride 0.9%) 1,000 mls @ 100 mls/hr IV .Q10H [facility] Last Admin: 03/28/17 06:27 Dose: 100 mls/hr Ceftriaxone Sodium (Rocephin Iv 1 Gm Duplex) 50 mls @ 100 mls/hr IVPB DAILY [facility] Last Admin: 03/28/17 10:08 Dose: 100 mls/hr - Labs Labs: 03/28/17 07:23 03/26/17 03:32
[2017-03-29] MEDS: DiphenhydrAMINE 50 mg/ml Inj IVP PRN ×8 (00:21→22:34)
[2017-03-29] MEDS: cefTRIAXone IV 1 gm in Dextros 50 ML IVPB SCH (10:01)
[2017-03-29 12:36] LABS: HEMOGLOBIN 7.8 g/dL (11.0-16.0); MEAN CELL VOLUME 84.7 fL (81.0-99.0); MEAN CORPUSCULAR HEMOGLOBIN 29.2 pg (27.0-31.0); MEAN CORPUSCULAR HGB CONC 34.5 g/dL (33.0-37.0); MEAN PLATELET VOLUME 9.1 fL (7.2-11.7); RBC 2.66 Mil/uL (3.80-5.20); RED CELL DISTRIBUTION WIDTH 17.3 % (11.5-14.5); WHITE BLOOD COUNT 20.8 K/uL (4.8-10.8)
[2017-03-29] MEDS ORDERED: Sodium Chloride 0.9% 1,000 ML IV SCH (13:00)
--- NOTE | 2017-03-29 13:01 | CP.PCM.PN ---
Subjective - Date & Time of Evaluation Date of Evaluation: 03/29/17 Time of Evaluation: 12:55 - Subjective Subjective: PT SEEN IN BED WATCHING TV. APPEARS COMFORTABLE, SLEEPY BUT AROUSABLE. PT COMPLAINS THAT SHE STILL HAS GEN BODY PAIN. ADMITS THAT SHE DISCONNECTS THE IVF FROM HER BRIELLE CATH 2/2 URINARY FREQUENCY AND DUE TO HER H/O NEUROGENIC BLADDER. PT STATES SHE STRAIGHT CATHS HERSELF AT HOME AND IS COMFORTABLE DOING IT HERE. EXAM NORMAL; AAOX3, BS CTA, HR REG, ABD SOFT, NT, ND. LABS REVIEWED TODAY AND HGB 7.8 PT STATES BETWEEN 6-8 IS HER NORMAL. PLAN FOR TODAY IS TO CONTINUE IVFS; CONTINUE PAIN MEDICATION PRN; STRAIGHT CATH PRN. WILL RE-EVAL PT TOMORROW FOR POSS D/C IF PAIN IMPROVES. PT IN AGREEMENT W PLAN. Objective - Vital Signs/Intake and Output Vital Signs (last 24 hours): Temp Pulse Resp BP Pulse Ox 98.9 F 105 H 20 119/78 96 03/29/17 08:35 03/29/17 09:59 03/29/17 08:35 03/29/17 09:59 03/29/17 08:35 Intake and Output: 03/29/17 03/29/17 06:59 18:59 Intake Total 2125 Output Total 4 Balance 2121 - Medications Medications: Current Medications Diphenhydramine HCl (Benadryl) 25 mg IVP Q3 PRN PRN Reason: Itching / Pruritus Last Admin: 03/29/17 10:00 Dose: 25 mg Folic Acid (Folic Acid) 1 mg PO DAILY [facility] Last Admin: 03/29/17 10:00 Dose: 1 mg Hydromorphone HCl (Dilaudid) 1 mg IVP Q3 PRN PRN Reason: Pain, moderate (4-7) Last Admin: 03/29/17 10:00 Dose: 1 mg Ceftriaxone Sodium (Rocephin Iv 1 Gm Duplex) 50 mls @ 100 mls/hr IVPB DAILY [facility] Last Admin: 03/29/17 10:01 Dose: 100 mls/hr Sodium Chloride (Sodium Chloride 0.9%) 1,000 mls @ 100 mls/hr IV .Q10H [facility] - Labs Labs: 03/29/17 12:33 03/26/17 03:32
[2017-03-29 13:11] LABS: CALCIUM 8.1 mg/dl (8.6-10.4)
--- NOTE | 2017-03-29 23:50 | CP.PCM.HP ---
Past Patient History - Past Medical History & Family History Past Medical History?: Yes - Past Social History Smoking Status: Never Smoked - CARDIAC Hx Cardiac Disorders: No Hx Angina: No Hx Atrial Fibrillation: No Hx Cardia Arrhythmia: No Hx Circulatory Problems: No Hx Congestive Heart Failure: No Hx Heart Attack: No Hx Heart Murmur: No Hx Heart Transplant: No Hx Hypercholesterolemia: No Hx Hypertension: No Hx Hypotension: No Hx Internal Defibrillator: No Hx Mitral Valve Prolapse: No Hx Pacemaker: No Hx Peripheral Edema: No Hx Peripheral Vascular Disease: No - PULMONARY Hx Respiratory Disorders: No Hx Asthma: No Hx Bronchitis: No Hx Chronic Obstructive Pulmonary Disease (COPD): No Hx Emphysema: No Hx Lung Cancer: No Hx Pneumonia: No Hx Pulmonary Edema: No Hx Pulmonary Embolism: No Hx Respiratory Aspiration: No Hx Respiratory Tract Infection: No Hx Sleep Apnea: No Hx Tuberculosis: No - NEUROLOGICAL Hx Neurological Disorder: No Hx Alzheimer's Disease: No HX Cerebrovascular Accident: No Hx Dementia: No Hx Dizziness: No Hx Meningitis: No Hx Migraine: Yes Hx Multiple Sclerosis: No Hx Paralysis: No Hx Parkinson's Disease: No Hx Seizures: No Hx Syncope: No Hx Transient Ischemic Attacks (TIA): No Hx Vertigo: No - HEENT Hx HEENT Problems: No Hx Blind: No Hx Cataracts: No Hx Deafness: No Hx Difficulty Chewing: No Hx Epistaxis: No Hx Glaucoma: No Hx Macular Degeneration: No Hx Sinusitis: No - RENAL Hx Chronic Kidney Disease: No Hx Dialysis: No Hx Kidney Stones: No Hx Neurogenic Bladder: No Hx Pyelonephritis: No Hx Renal (Kidney) Cancer: No Hx Renal Failure: No - ENDOCRINE/METABOLIC Hx Endocrine Disorders: No Hx Adrenal Cancer: No Hx Diabetes Insipidus: No Hx Diabetes Mellitus Type 1: No Hx Diabetes Mellitus Type 2: No Hx Hyperthyroidism: No Hx Hypothyroidism: No Hx Systemic Lupus Erythematosus: No - HEMATOLOGICAL/ONCOLOGICAL Hx Blood Disorders: No Hx AIDS: No Hx Anemia: Yes Hx Blood Transfusions: Yes Hx Blood Transfusion Reaction: No Hx Bruising: No Hx Cancer: No Hx Chemotherapy: No Hx Cirrhosis: No Hx Gum Bleeding: No Hx Hemophilia: No Hx Hepatitis A: No Hx Hepatitis B: No Hx Hepatitis C: No Hx Human Immunodeficiency Virus (HIV): No Hx Leukemia: No Hx Metastesis: No Hx Shingles: No Hx Sickle Cell Disease: Yes Hx Unexplained Bleeding: No Hx von Willebrand's Disease: No - MUSCULOSKELETAL/RHEUMATOLOGICAL Hx Falls: No - PSYCHIATRIC Hx Substance Use: No - SURGICAL HISTORY Hx Cholecystectomy: Yes (2003) - ANESTHESIA Hx Anesthesia: Yes Hx Anesthesia Reactions: No Meds Allergies/Adverse Reactions: Allergies Allergy/AdvReac Type Severity Reaction Status Date / Time droperidol Allergy Verified 03/09/17 16:48 tramadol Allergy Verified 03/09/17 16:48 inapsine Allergy RASH Uncoded 03/09/17 16:48 Results - Vital Signs Recent Vital Signs: Last Vital Signs Temp 98.1 F 03/29/17 15:05 Pulse 101 H 03/29/17 15:05 Resp 20 03/29/17 15:05 BP 114/80 03/29/17 15:05 Pulse Ox 100 03/29/17 15:05 - Labs Result Diagrams: 03/29/17 12:33 03/29/17 12:33 Labs: Laboratory Results - last 24 hr 03/29/17 03/29/17 12:33 12:33 WBC 20.8 H RBC 2.66 L Hgb 7.8 L Hct 22.5 L MCV 84.7 MCH 29.2 MCHC 34.5 RDW 17.3 H Plt Count 191 MPV 9.1 Sodium 137 Potassium 5.0 Chloride 109 H Carbon Dioxide 19 L Anion Gap 15 BUN 28 H Creatinine 1.4 H Est GFR ( Amer) 51 Est GFR (Non-Af Amer) 42 Random Glucose 90 Calcium 8.1 L
[2017-03-30] MEDS: DiphenhydrAMINE 50 mg/ml Inj IVP PRN ×6 (01:34→18:14)
[2017-03-30 08:02] VITALS: RESP 18
--- NOTE | 2017-03-30 10:03 | CP.PCM.PN ---
Subjective - Date & Time of Evaluation Date of Evaluation: 03/30/17 Time of Evaluation: 07:23 - Subjective Subjective: Medicine Progress Note- Dr. Holland Hernandez's service Patient seen and examined in no immediate acute distress Patient states that she is a patient of the covering physician. Patient admits to generalized diffuse aches in her lower extremities bilaterally, back and stomach. Patient denies chest pain, sujective fevers or chills, nausea, vomiting or diarrhea at this time. Objective - Vital Signs/Intake and Output Vital Signs (last 24 hours): Temp Pulse Resp BP Pulse Ox 98.2 F 86 18 111/68 97 03/30/17 07:45 03/30/17 07:45 03/30/17 07:45 03/30/17 07:45 03/30/17 07:45 Intake and Output: 03/30/17 03/30/17 06:59 18:59 Intake Total 1400 Balance 1400 - Medications Medications: Current Medications Diphenhydramine HCl (Benadryl) 25 mg IVP Q3 PRN PRN Reason: Itching / Pruritus Last Admin: 03/30/17 07:55 Dose: 25 mg Folic Acid (Folic Acid) 1 mg PO DAILY [facility] Last Admin: 03/29/17 10:00 Dose: 1 mg Hydromorphone HCl (Dilaudid) 1 mg IVP Q3 PRN PRN Reason: Pain, moderate (4-7) Last Admin: 03/30/17 07:57 Dose: 1 mg Ceftriaxone Sodium (Rocephin Iv 1 Gm Duplex) 50 mls @ 100 mls/hr IVPB DAILY [facility] Last Admin: 03/29/17 10:01 Dose: 100 mls/hr Sodium Chloride (Sodium Chloride 0.9%) 1,000 mls @ 100 mls/hr IV .Q10H [facility] - Labs Labs: 03/29/17 12:33 03/29/17 12:33 - Constitutional Appears: Non-toxic, No Acute Distress - Head Exam Head Exam: ATRAUMATIC, NORMAL INSPECTION, NORMOCEPHALIC - Eye Exam Eye Exam: Normal appearance - ENT Exam ENT Exam: Mucous Membranes Moist - Neck Exam Neck Exam: Full ROM - Respiratory Exam Respiratory Exam: NORMAL BREATHING PATTERN. absent: Wheezes - Cardiovascular Exam Cardiovascular Exam: +S1, +S2 - GI/Abdominal Exam GI & Abdominal Exam: Soft, Normal Bowel Sounds - Back Exam Back Exam: Full ROM, tenderness - Neurological Exam Neurological Exam: Alert, Awake, Oriented x3 - Psychiatric Exam Psychiatric exam: Normal Affect, Normal Mood - Skin Skin Exam: Dry, Normal Color, Warm Assessment and Plan - Assessment and Plan (Free Text) Assessment: Sickle cell pain crisis Assessment and Plan: Patient on Folic acid IV fluids,Dilaudid, folic acid, oxygen therapy with sats above 92 Patient should try to eat and stay hydrated Hgb 6.9. Patient's Hgb is usually at a baseline of 6-8 as per patient. Transfusions are generally not always indicated in acute pain crises; and thus will hold at this time. Status: Acute BILL Assessment and Plan: Cont NS @ 100 mls/hr Monitor Status: Acute Leukocytosis Assessment and Plan: Decreasing Likely reactive to sickle cell Status: Acute Prophylactic Measure Assessment and Plan: Influenza and Pneumonia vaccines SCDs Kindly refer to discharge planning in the chart. Discussed with attending. Management and planning per Dr. Holland Hernandez.
[2017-03-30] MEDS: cefTRIAXone IV 1 gm in Dextros 50 ML IVPB SCH (10:31)
--- NOTE | 2017-03-30 16:03 | CP.PCM.PN ---
Subjective - Date & Time of Evaluation Date of Evaluation: 03/30/17 Time of Evaluation: 15:57 - Subjective Subjective: PT SEEN BY DR GONZALEZ. LABS REVIEWED; HGB WITHIN PT'S BASELINE. NO NEED FOR FURTHER TRANSFUSION AT THIS TIME. CLEARED FOR D/C PER DR. GONZALEZ. PT TAKES FOIC ACID AT HOME AND NEEDS NO REFILLS. RX REFILL GIVEN FOR DILAUDID PRN. TO ALSO COMPLETE AUGMENTIN RX GIVEN TO HER LAST WEEK FOR UTI. PT TO F/U WITH DR. GONZALEZ IN THE OFFICE ON WEDNESDAY. PT ALSO GIVEN RX FOR REFILL FOR STRAIGHT CATH EQUIPMENT AND CATHETER (14 ENGLISH)--PT STRAIGHT CATHS HERSELF 2/2 NEUROGENIC BLADDER. DISCUSSED ALL D/C INFORMATION, PT VERBALIZES UNDERSTANDING. NO FURTHER ORDERS. Objective - Vital Signs/Intake and Output Vital Signs (last 24 hours): Temp Pulse Resp BP Pulse Ox 98.2 F 93 H 18 111/73 97 03/30/17 07:45 03/30/17 14:43 03/30/17 07:45 03/30/17 14:43 03/30/17 07:45 Intake and Output: 03/30/17 03/30/17 06:59 18:59 Intake Total 1400 1250 Balance 1400 1250 - Medications Medications: Current Medications Diphenhydramine HCl (Benadryl) 25 mg IVP Q3 PRN PRN Reason: Itching / Pruritus Last Admin: 03/30/17 14:44 Dose: 25 mg Folic Acid (Folic Acid) 1 mg PO DAILY [facility] Last Admin: 03/30/17 10:31 Dose: 1 mg Heparin Sodium (Porcine) (Heparin Lock Flush) 100 units IVF ONCE ONE Stop: 03/30/17 15:57 Hydromorphone HCl (Dilaudid) 1 mg IVP Q3 PRN PRN Reason: Pain, moderate (4-7) Last Admin: 03/30/17 14:43 Dose: 1 mg Ceftriaxone Sodium (Rocephin Iv 1 Gm Duplex) 50 mls @ 100 mls/hr IVPB DAILY [facility] Last Admin: 03/30/17 10:31 Dose: 100 mls/hr Sodium Chloride (Sodium Chloride 0.9%) 1,000 mls @ 100 mls/hr IV .Q10H [facility] Last Admin: 03/30/17 10:33 Dose: 100 mls/hr - Labs Labs: 03/29/17 12:33 03/29/17 12:33
[2017-03-30 16:37] VITALS: BP 113/73; PULSE 77; TEMP 97.9; O2SAT 100
--- NOTE | 2017-03-30 16:37 | CP.PCM.PN ---
Subjective - Date & Time of Evaluation Date of Evaluation: 03/30/17 Time of Evaluation: 12:20 - Subjective Subjective: clinically same Objective - Vital Signs/Intake and Output Vital Signs (last 24 hours): Temp Pulse Resp BP Pulse Ox 98.2 F 93 H 18 111/73 97 03/30/17 07:45 03/30/17 14:43 03/30/17 07:45 03/30/17 14:43 03/30/17 07:45 Intake and Output: 03/30/17 03/30/17 06:59 18:59 Intake Total 1400 850 Balance 1400 850 - Medications Medications: Current Medications Diphenhydramine HCl (Benadryl) 25 mg IVP Q3 PRN PRN Reason: Itching / Pruritus Last Admin: 03/30/17 14:44 Dose: 25 mg Folic Acid (Folic Acid) 1 mg PO DAILY [facility] Last Admin: 03/30/17 10:31 Dose: 1 mg Hydromorphone HCl (Dilaudid) 1 mg IVP Q3 PRN PRN Reason: Pain, moderate (4-7) Last Admin: 03/30/17 14:43 Dose: 1 mg Ceftriaxone Sodium (Rocephin Iv 1 Gm Duplex) 50 mls @ 100 mls/hr IVPB DAILY [facility] Last Admin: 03/30/17 10:31 Dose: 100 mls/hr Sodium Chloride (Sodium Chloride 0.9%) 1,000 mls @ 100 mls/hr IV .Q10H [facility] Last Admin: 03/30/17 10:33 Dose: 100 mls/hr - Labs Labs: 03/29/17 12:33 03/29/17 12:33 - Constitutional Appears: Well - Head Exam Head Exam: ATRAUMATIC, NORMAL INSPECTION, NORMOCEPHALIC - Eye Exam Eye Exam: EOMI, Normal appearance, PERRL Pupil Exam: NORMAL ACCOMODATION, PERRL - ENT Exam ENT Exam: Mucous Membranes Moist, Normal Exam - Neck Exam Neck Exam: Full ROM, Normal Inspection. absent: Lymphadenopathy - Respiratory Exam Respiratory Exam: Decreased Breath Sounds - Cardiovascular Exam Cardiovascular Exam: REGULAR RHYTHM, +S1, +S2 - GI/Abdominal Exam GI & Abdominal Exam: Soft, Diminished Bowel Sounds - Rectal Exam Rectal Exam: Deferred
== END 2017-03-30 19:17 | disposition home or self-care (01) | DRG 812 ==
LOC: C.ER 01:59 → C.6T 05:00
PROVIDERS: ADMIT Internal Medicine Nephrology; ATTEND Internal Medicine Nephrology
PROC: 30233N1 Transfusion of Nonautologous Red Blood Cells into Peripheral Vein, Percutaneous Approach (ICD-10-PCS; principal; 2017-03-26)
DX: D57.00 Hb-SS disease with crisis, unspecified (principal); N17.9 Acute kidney failure, unspecified; D72.829 Elevated white blood cell count, unspecified; N31.9 Neuromuscular dysfunction of bladder, unspecified

== ENCOUNTER 2017-04-08 03:58 | Inpatient (IN) | payer MEDICARE ==
[2017-04-08 03:59] VITALS: BMI 22.4
--- NOTE | 2017-04-08 04:22 | C.PDOC ---
History Of Present Illness The patient, whose PMHx includes sickle cell crisis, presents to the ED for evaluation of generalized body aches which began around 3 days ago. Patient was evaluated for similar complaints two weeks ago and underwent transfusion for hemoglobin level of 5.5 g/dL. She denies fever, chills. Time Seen by Provider: 04/08/17 04:22 Chief Complaint (Nursing): Pain, Chronic History Per: Patient History/Exam Limitations: no limitations Onset/Duration Of Symptoms: Days (3) Current Symptoms Are (Timing): Still Present Severity: Mild Pain Scale Rating Of: 3 Recent travel outside of the [place]: No Additional History Per: Patient Past Medical History Reviewed: Historical Data, Nursing Documentation, Vital Signs Vital Signs: Last Vital Signs Temp 98.2 F 04/08/17 09:10 Pulse 98 H 04/08/17 09:10 Resp 20 04/08/17 09:10 BP 105/69 04/08/17 09:10 Pulse Ox 98 04/08/17 09:10 - Medical History PMH: Anemia, Migraine, Sickle Cell Disease Denies: Alzheimer's Disease, Asthma, Atrial Fibrillation, Bronchitis, Cardia Arrhythmia, CHF, COPD, Dementia, Emphysema, HIV, HTN, Hypercholesterolemia, Hyperthyroidism, Hypothyroidism, Kidney Stones, Mitral Valve Prolapse, Multiple Sclerosis, Parkinson's Disease, Peripheral Edema, Pneumonia, Pulmonary Embolism , Chronic Kidney Disease, Seizures, Sleep Apnea, TIA Surgical History: Cholecystectomy (2003) Denies: Pacemaker - [facility] Procedures PACKED CELL TRANSFUSION (07/26/12) TETANUS TOXOID ADMINIST (11/14/12) TRANSFUSE NONAUT RED BLOOD CELLS IN PERIPH VEIN, PERC (03/26/17) Family History: States: Unknown Family Hx - Social History Hx Tobacco Use: No Hx Alcohol Use: No Hx Substance Use: No - Immunization History Hx Tetanus Toxoid Vaccination: No Hx Influenza Vaccination: Yes Hx Pneumococcal Vaccination: Yes Review Of Systems Constitutional: Negative for: Fever, Chills Cardiovascular: Negative for: Chest Pain, Palpitations Respiratory: Negative for: Cough, Shortness of Breath Gastrointestinal: Negative for: Nausea, Vomiting, Abdominal Pain, Diarrhea Musculoskeletal: Positive for: Other (generalized body aches ) Skin: Negative for: Rash, Lesions, Bruising Neurological: Negative for: Weakness, Numbness Physical Exam - Physical Exam Appears: Non-toxic, No Acute Distress Skin: Warm, Dry Head: Normacephalic Eye(s): bilateral: Normal Inspection Oral Mucosa: Moist Neck: Supple Chest: Symmetrical, No Deformity, No Tenderness, Other (port-a-cath in place in right chest wall ) Cardiovascular: Rhythm Regular, No Murmur Respiratory: No Rales, No Rhonchi, No Wheezing Gastrointestinal/Abdominal: Soft, No Tenderness, No Guarding, No Rebound Extremity: Normal ROM, Capillary Refill (less than 2 seconds ) Neurological/Psych: Oriented x3 Gait: Steady ED Course And Treatment - Laboratory Results Result Diagrams: 04/08/17 05:54 04/08/17 05:54 O2 Sat by Pulse Oximetry: 100 (on RA) Pulse Ox Interpretation: Normal Progress Note: Bloodwork and UA ordered and reviewed. IV Fluids administered. Disposition Discussed With DrArchie: Rosalina Hernandez Comment: acceted the pt on his service and took over the care at 6:11 AM Doctor Will See Patient In The: Hospital Counseled Patient/Family Regarding: Studies Performed, Diagnosis - Disposition Disposition: HOSPITALIZED Disposition Time: 04:22 Condition: FAIR - POA Present On Arrival: None - Clinical Impression Clinical Impression: Sickle cell anemia with pain, Sickle cell pain crisis - Scribe Statement The provider has reviewed the documentation as recorded by the Scribe (Nimo Hernandez) Provider Attestation: All medical record entries made by the Scribe were at my direction and personally dictated by me. I have reviewed the chart and agree that the record accurately reflects my personal performance of the history, physical exam, medical decision making, and the department course for this patient. I have also personally directed, reviewed, and agree with the discharge instructions and disposition. Decision To Admit - Pt Status Changed To: Hospital Disposition Of: Inpatient - Admit Certification Admit to Inpatient:: After my assessment, the patient will require hospitalization for at least two midnights. This is because of the severity of symptoms shown, intensity of services needed, and/or the medical risk in this patient being treated as an outpatient. - InPatient: Physician Admission Certification: I certify that this patient requires 2 or more midnights of care for the following reason:: After my assessment, the patient will require hospitalization for at least two midnights. This is because of the severity of symptoms shown, intensity of services needed, and/or the medical risk in this patient being treated as an outpatient. - . Bed Request Type: Regular Admitting Physician: Rosalina Hernandez Patient Diagnosis: Sickle cell anemia with pain, Sickle cell pain crisis
[2017-04-08] MEDS ORDERED: Sodium Chloride 0.9% 1,000 ML IV ONE (04:23)
[2017-04-08 04:54] LABS: SQUAMOUS EPITHIAL 4 /hpf (0-5); URINE BACTERIA MOD (<OCC); URINE BILIRUBIN NEGATIVE (NEGATIVE); URINE BLOOD 1+ (NEGATIVE); URINE CLARITY Hazy (Clear); URINE COLOR Yellow (YELLOW); URINE GLUCOSE (UA) NORMAL (Normal); URINE LEUKOCYTE ESTERASE 3+ Leu/uL (Negative); URINE NITRATE NEGATIVE (NEGATIVE); URINE PROTEIN 1+ mg/dL (NEGATIVE); WBC CLUMPS FEW /hpf
[2017-04-08 04:56] LABS: HCG,QUALITATIVE URINE NEGATIVE (NEGATIVE)
[2017-04-08 06:00] LABS: BASO # 0.2 K/uL (0.0-0.2); BASO % 1.1 % (0.0-2.0); EOS # 0.6 K/uL (0.0-0.7); EOS % 3.3 % (0.0-4.0); HEMOGLOBIN 6.9 g/dL (11.0-16.0); LYMPH # 3.9 K/uL (1.0-4.3); LYMPH % 20.2 % (20.0-40.0); MEAN CELL VOLUME 83.9 fL (81.0-99.0); MEAN CORPUSCULAR HEMOGLOBIN 27.7 pg (27.0-31.0); MEAN PLATELET VOLUME 9.3 fL (7.2-11.7); MONO # 1.2 K/uL (0.0-0.8); MONO % 5.9 % (0.0-10.0); NEUT # 13.5 K/uL (1.8-7.0); NEUT % 69.5 % (50.0-75.0); NRBC % 0.1 % (0.0-2.0); RBC 2.49 Mil/uL (3.80-5.20); RED CELL DISTRIBUTION WIDTH 17.2 % (11.5-14.5); WHITE BLOOD COUNT 19.5 K/uL (4.8-10.8)
[2017-04-08 06:07] LABS: INR 1.3; PROTHROMBIN TIME 14.8 SECONDS (9.7-12.2)
[2017-04-08] MEDS ORDERED: DiphenhydrAMINE 50 mg/ml Inj IVP STA (06:07)
[2017-04-08 06:23] LABS: ALB/GLOB RATIO 0.7 (1.0-2.1); ALBUMIN 3.5 g/dL (3.5-5.0); ALT/SGPT 79 U/L (9-52); AST/SGOT 102 U/L (14-36); BLOOD UREA NITROGEN 19 mg/dL (7-17); CALCIUM 8.2 mg/dl (8.6-10.4); GFR AFRICAN-AMERICAN > 60; GFR NON-AFRICAN AMERICAN 56
[2017-04-08] MEDS ORDERED: DiphenhydrAMINE 50 mg/ml Inj ONE (07:11)
[2017-04-08 09:14] VITALS: RESP 20
--- NOTE | 2017-04-08 10:40 | CP.PCM.CON ---
History of Present Illness - History of Present Illness History of Present Illness: 36 year old female with a history of sickle cell anemia, admitted with sickle cell pain crisis. The patient reports to increasing diffuse bone pain which did not improve with her oral pain meds. She denies fevers and chills. She does report to progressive fatigue but no shortness of breath. She denies abnormal bleeding and bruising. Past medical history: Sickle cell anemia Past surgical history: Portacath Family history: Parents have the trait. Social history: Denies tobacco, alcohol, and illicit drug use. Allergies: Droperidol, tramadol Review of systems: All remaining review of systems including HEENT, cardiovascular, respiratory, gastrointestinal, genitourinary, musculoskeletal, dermatologic, neurologic, and psychiatric are negative unless mentioned in the HPI. Past Patient History - Past Medical History & Family History Past Medical History?: Yes - Past Social History Smoking Status: Never Smoked - CARDIAC Hx Atrial Fibrillation: No Hx Cardia Arrhythmia: No Hx Congestive Heart Failure: No Hx Hypercholesterolemia: No Hx Hypertension: No Hx Mitral Valve Prolapse: No Hx Pacemaker: No Hx Peripheral Edema: No - PULMONARY Hx Asthma: No Hx Bronchitis: No Hx Chronic Obstructive Pulmonary Disease (COPD): No Hx Emphysema: No Hx Pneumonia: No Hx Pulmonary Embolism: No Hx Sleep Apnea: No - NEUROLOGICAL Hx Alzheimer's Disease: No Hx Dementia: No Hx Migraine: Yes Hx Multiple Sclerosis: No Hx Parkinson's Disease: No Hx Seizures: No Hx Transient Ischemic Attacks (TIA): No - HEENT Hx HEENT Problems: No Hx Blind: No Hx Cataracts: No Hx Deafness: No Hx Difficulty Chewing: No Hx Epistaxis: No Hx Glaucoma: No Hx Macular Degeneration: No - RENAL Hx Chronic Kidney Disease: No Hx Kidney Stones: No - ENDOCRINE/METABOLIC Hx Hyperthyroidism: No Hx Hypothyroidism: No - HEMATOLOGICAL/ONCOLOGICAL Hx Anemia: Yes Hx Human Immunodeficiency Virus (HIV): No Hx Sickle Cell Disease: Yes - MUSCULOSKELETAL/RHEUMATOLOGICAL Hx Falls: No - PSYCHIATRIC Hx Substance Use: No - SURGICAL HISTORY Hx Cholecystectomy: Yes (2003) - ANESTHESIA Hx Anesthesia: Yes Hx Anesthesia Reactions: No Meds Allergies/Adverse Reactions: Allergies Allergy/AdvReac Type Severity Reaction Status Date / Time droperidol Allergy Verified 04/08/17 04:11 tramadol Allergy Verified 04/08/17 04:11 inapsine Allergy RASH Uncoded 04/08/17 04:11 - Medications Medications: Current Medications Folic Acid (Folic Acid) 1 mg PO DAILY [facility] Heparin Sodium (Porcine) (Heparin) 5,000 units SC Q12 [facility] Hydromorphone HCl (Dilaudid) 1 mg IVP Q4H PRN PRN Reason: Pain, severe (8-10) Sodium Chloride (Sodium Chloride 0.9%) 1,000 mls @ 100 mls/hr IV .Q10H [facility] Physical Exam - Head Exam Head Exam: ATRAUMATIC - Eye Exam Eye Exam: Normal appearance - ENT Exam ENT Exam: Mucous Membranes Dry - Respiratory Exam Respiratory Exam: NORMAL BREATHING PATTERN - Cardiovascular Exam Cardiovascular Exam: +S1, +S2 - GI/Abdominal Exam GI & Abdominal Exam: Normal Bowel Sounds - Extremities Exam Extremities exam: Positive for: normal inspection - Neurological Exam Neurological exam: Oriented x3 - Psychiatric Exam Psychiatric exam: Normal Affect, Normal Mood - Skin Skin Exam: Warm Results - Vital Signs Recent Vital Signs: Last Vital Signs Temp 98.2 F 04/08/17 09:10 Pulse 98 H 04/08/17 09:10 Resp 20 04/08/17 09:10 BP 105/69 04/08/17 09:10 Pulse Ox 98 04/08/17 09:10 - Labs Result Diagrams: 04/08/17 05:54 04/08/17 05:54 Labs: Laboratory Results - last 24 hr 04/08/17 04/08/17 04/08/17 04:47 05:54 05:54 WBC 19.5 H RBC 2.49 L Hgb 6.9 L Hct 20.9 L MCV 83.9 MCH 27.7 MCHC 33.0 RDW 17.2 H Plt Count 248 MPV 9.3 Neut % (Auto) 69.5 Lymph % (Auto) 20.2 [place] % (Auto) 5.9 Eos % (Auto) 3.3 Baso % (Auto) 1.1 Neut # (Auto) 13.5 H Lymph # (Auto) 3.9 [place] # (Auto) 1.2 H Eos # (Auto) 0.6 Baso # (Auto) 0.2 Retic Count 4.8 H D PT 14.8 H INR 1.3 APTT 44 H Sodium Potassium Chloride Carbon Dioxide Anion Gap BUN Creatinine Est GFR ( Amer) Est GFR (Non-Af Amer) Random Glucose Calcium Total Bilirubin AST ALT Alkaline Phosphatase Total Creatine Kinase Total Protein Albumin Globulin Albumin/Globulin Ratio Urine Color Yellow Urine Clarity Hazy Urine pH 7.0 Ur Specific [place] 1.006 Urine Protein 1+ H Urine Glucose (UA) Normal Urine Ketones Negative Urine Blood 1+ H Urine Nitrate Negative Urine Bilirubin Negative Urine Urobilinogen 2.0 H Ur Leukocyte Esterase 3+ H Urine WBC (Auto) 796 H Urine RBC (Auto) 6 H Urine WBC Clumps (Auto) Few H Ur Squamous Epith Cells 4 Urine Bacteria Mod H Urine Yeast (Budding) Few H Urine HCG, Qual Negative 04/08/17 05:54 WBC RBC Hgb Hct MCV MCH MCHC RDW Plt Count MPV Neut % (Auto) Lymph % (Auto) [place] % (Auto) Eos % (Auto) Baso % (Auto) Neut # (Auto) Lymph # (Auto) [place] # (Auto) Eos # (Auto) Baso # (Auto) Retic Count PT INR APTT Sodium 133 Potassium 4.5 Chloride 103 Carbon Dioxide 23 Anion Gap 12 BUN 19 H Creatinine 1.1 Est GFR ( Amer) > 60 Est GFR (Non-Af Amer) 56 Random Glucose 86 Calcium 8.2 L Total Bilirubin 2.0 H AST 102 H ALT 79 H Alkaline Phosphatase 204 H Total Creatine Kinase 27 L Total Protein 9.0 H Albumin 3.5 Globulin 5.4 H Albumin/Globulin Ratio 0.7 L Urine Color Urine Clarity Urine pH Ur Specific [place] Urine Protein Urine Glucose (UA) Urine Ketones Urine Blood Urine Nitrate Urine Bilirubin Urine Urobilinogen Ur Leukocyte Esterase Urine WBC (Auto) Urine RBC (Auto) Urine WBC Clumps (Auto) Ur Squamous Epith Cells Urine Bacteria Urine Yeast (Budding) Urine HCG, Qual Assessment & Plan (1) Sickle cell pain crisis Assessment and Plan: IV fluids, pain meds, folic acid, 02 via [place] no current transfusion indication Status: Acute (2) Leukocytosis Assessment and Plan: on antibiotics Status: Acute (3) Sickle cell anemia Assessment and Plan: folic acid and hydrea Thank you for this interesting consult. Status: Acute
[2017-04-08] MEDS ORDERED: HYDROmorphone 0.5 mg/0.5 ml ISec IVP PRN (11:00)
[2017-04-08] MEDS: HYDROmorphone 0.5 mg/0.5 ml ISec IVP PRN ×2 (12:36→18:03)
[2017-04-08] MEDS: Sodium Chloride 0.9% 1,000 ML IV SCH ×2 (12:36→21:49)
[2017-04-08] MEDS ORDERED: DiphenhydrAMINE 50 mg/ml Inj IVP PRN (16:52)
--- NOTE | 2017-04-08 17:00 | RAD ---
HISTORY: LEUCOCYTOSIS COMPARISON: Chest x-ray performed 03/26/17 TECHNIQUE: Chest PA and lateral FINDINGS: Right-sided MediPort with distal tip obscured by Moreira rai. LUNGS: Hypoinflation. Mild interstitial prominence may reflect infection or edema. Patchy right lower lobe infiltrate. Please note that chest x-ray has limited sensitivity for the detection of pulmonary masses. PLEURA: No significant pleural effusion identified. No definite pneumothorax . CARDIOVASCULAR: Borderline cardiomegaly. OSSEOUS STRUCTURES: Moreira rods. Osseous demineralization. Kyphosis. Multilevel degenerative changes. VISUALIZED UPPER ABDOMEN: Partially imaged bilateral ureteral stents. Right upper quadrant surgical clips. OTHER FINDINGS: None. IMPRESSION: Right-sided MediPort. Hypoinflation. Mild interstitial prominence may reflect infection or edema. Patchy infiltrate, right lung base. Additional findings as above.
[2017-04-08] MEDS: DiphenhydrAMINE 50 mg/ml Inj IVP PRN (21:45)
[2017-04-08] MEDS: HYDROmorphone 1 mg/5ml IVP PRN (21:46)
[2017-04-08] MEDS ORDERED: HYDROmorphone 0.5 mg/0.5 ml ISec IVP SCH (22:00)
[2017-04-09] MEDS: HYDROmorphone 1 mg/5ml IVP PRN (00:49)
[2017-04-09] MEDS: DiphenhydrAMINE 50 mg/ml Inj IVP PRN ×7 (00:49→22:50)
[2017-04-09] MEDS: HYDROmorphone 0.5 mg/0.5 ml ISec IVP PRN ×7 (04:03→22:47)
[2017-04-09] MEDS: Sodium Chloride 0.9% 1,000 ML IV SCH ×2 (06:00→19:33)
[2017-04-09 08:10] LABS: BASO # 0.2 K/uL (0.0-0.2); BASO % 1.1 % (0.0-2.0); EOS # 0.7 K/uL (0.0-0.7); LYMPH # 4.8 K/uL (1.0-4.3); LYMPH % 29.2 % (20.0-40.0); MEAN CELL VOLUME 84.6 fL (81.0-99.0); MEAN CORPUSCULAR HEMOGLOBIN 28.7 pg (27.0-31.0); MEAN CORPUSCULAR HGB CONC 33.9 g/dL (33.0-37.0); MONO # 1.1 K/uL (0.0-0.8); MONO % 6.6 % (0.0-10.0); NEUT # 9.7 K/uL (1.8-7.0); NEUT % 59.1 % (50.0-75.0); NRBC % 0.1 % (0.0-2.0); RBC 2.04 Mil/uL (3.80-5.20); RED CELL DISTRIBUTION WIDTH 16.9 % (11.5-14.5); WHITE BLOOD COUNT 16.4 K/uL (4.8-10.8)
[2017-04-09 08:19] LABS: ALB/GLOB RATIO 0.7 (1.0-2.1); ALT/SGPT 63 U/L (9-52); AST/SGOT 104 U/L (14-36); BLOOD UREA NITROGEN 15 mg/dL (7-17); GFR AFRICAN-AMERICAN > 60; GFR NON-AFRICAN AMERICAN > 60
[2017-04-09 08:31] LABS: HEMOGLOBIN 5.8 g/dL (11.0-16.0)
--- NOTE | 2017-04-09 18:33 | CP.PCM.HP ---
Past Patient History - Past Medical History & Family History Past Medical History?: Yes - Past Social History Smoking Status: Never Smoked - CARDIAC Hx Atrial Fibrillation: No Hx Cardia Arrhythmia: No Hx Congestive Heart Failure: No Hx Hypercholesterolemia: No Hx Hypertension: No Hx Mitral Valve Prolapse: No Hx Pacemaker: No Hx Peripheral Edema: No - PULMONARY Hx Asthma: No Hx Bronchitis: No Hx Chronic Obstructive Pulmonary Disease (COPD): No Hx Emphysema: No Hx Pneumonia: No Hx Pulmonary Embolism: No Hx Sleep Apnea: No - NEUROLOGICAL Hx Alzheimer's Disease: No Hx Dementia: No Hx Migraine: Yes Hx Multiple Sclerosis: No Hx Parkinson's Disease: No Hx Seizures: No Hx Transient Ischemic Attacks (TIA): No - HEENT Hx HEENT Problems: No Hx Blind: No Hx Cataracts: No Hx Deafness: No Hx Difficulty Chewing: No Hx Epistaxis: No Hx Glaucoma: No Hx Macular Degeneration: No - RENAL Hx Chronic Kidney Disease: No Hx Kidney Stones: No - ENDOCRINE/METABOLIC Hx Hyperthyroidism: No Hx Hypothyroidism: No - HEMATOLOGICAL/ONCOLOGICAL Hx Anemia: Yes Hx Human Immunodeficiency Virus (HIV): No Hx Sickle Cell Disease: Yes - MUSCULOSKELETAL/RHEUMATOLOGICAL Hx Falls: No - PSYCHIATRIC Hx Substance Use: No - SURGICAL HISTORY Hx Cholecystectomy: Yes (2003) - ANESTHESIA Hx Anesthesia: Yes Hx Anesthesia Reactions: No Meds Allergies/Adverse Reactions: Allergies Allergy/AdvReac Type Severity Reaction Status Date / Time droperidol Allergy Verified 04/08/17 04:11 tramadol Allergy Verified 04/08/17 04:11 inapsine Allergy RASH Uncoded 04/08/17 04:11 Physical Exam - Constitutional Appears: Well - Head Exam Head Exam: ATRAUMATIC, NORMAL INSPECTION, NORMOCEPHALIC - Eye Exam Eye Exam: EOMI, Normal appearance, PERRL Pupil Exam: NORMAL ACCOMODATION, PERRL - ENT Exam ENT Exam: Mucous Membranes Moist, Normal Exam - Neck Exam Neck exam: Positive for: Normal Inspection - Respiratory Exam Respiratory Exam: Decreased Breath Sounds - Cardiovascular Exam Cardiovascular Exam: REGULAR RHYTHM, +S1, +S2 - GI/Abdominal Exam GI & Abdominal Exam: Diminished Bowel Sounds, Soft - Rectal Exam Rectal Exam: Deferred Results - Vital Signs Recent Vital Signs: Last Vital Signs Temp 98.5 F 04/09/17 17:22 Pulse 94 H 04/09/17 17:22 Resp 20 04/09/17 17:22 BP 122/84 04/09/17 17:22 Pulse Ox 98 04/09/17 17:07 - Labs Result Diagrams: 04/09/17 07:50 04/09/17 07:50 Labs: Laboratory Results - last 24 hr 04/09/17 04/09/17 04/09/17 07:50 07:50 07:50 WBC 16.4 H RBC 2.04 L Hgb 5.8 L* Hct 17.2 L MCV 84.6 MCH 28.7 MCHC 33.9 RDW 16.9 H Plt Count 178 MPV 9.0 Neut % (Auto) 59.1 Lymph % (Auto) 29.2 [place] % (Auto) 6.6 Eos % (Auto) 4.0 Baso % (Auto) 1.1 Neut # (Auto) 9.7 H Lymph # (Auto) 4.8 H [place] # (Auto) 1.1 H Eos # (Auto) 0.7 Baso # (Auto) 0.2 Retic Count 3.6 H D Sodium 137 Potassium 4.3 Chloride 107 Carbon Dioxide 23 Anion Gap 11 BUN 15 Creatinine 1.0 Est GFR ( Amer) > 60 Est GFR (Non-Af Amer) > 60 Random Glucose 90 Calcium 8.0 L Total Bilirubin 1.6 H AST 104 H ALT 63 H D Alkaline Phosphatase 167 H Total Protein 7.7 Albumin 3.0 L Globulin 4.6 H Albumin/Globulin Ratio 0.7 L Blood Type Antibody Screen 04/09/17 13:25 WBC RBC Hgb Hct MCV MCH MCHC RDW Plt Count MPV Neut % (Auto) Lymph % (Auto) [place] % (Auto) Eos % (Auto) Baso % (Auto) Neut # (Auto) Lymph # (Auto) [place] # (Auto) Eos # (Auto) Baso # (Auto) Retic Count Sodium Potassium Chloride Carbon Dioxide Anion Gap BUN Creatinine Est GFR ( Amer) Est GFR (Non-Af Amer) Random Glucose Calcium Total Bilirubin AST ALT Alkaline Phosphatase Total Protein Albumin Globulin Albumin/Globulin Ratio Blood Type O POSITIVE Antibody Screen Negative
--- NOTE | 2017-04-09 21:04 | CP.PCM.PN ---
Subjective - Date & Time of Evaluation Date of Evaluation: 04/09/17 Time of Evaluation: 19:00 - Subjective Subjective: Has pain in legs s/p 1U PRBC Objective - Vital Signs/Intake and Output Vital Signs (last 24 hours): Temp Pulse Resp BP Pulse Ox 98.9 F 92 H 20 125/81 98 04/09/17 20:14 04/09/17 20:14 04/09/17 20:14 04/09/17 20:14 04/09/17 17:07 Intake and Output: 04/09/17 04/10/17 18:59 06:59 Intake Total 2780 350 Balance 2780 350 - Medications Medications: Current Medications Diphenhydramine HCl (Benadryl) 25 mg IVP Q3 PRN PRN Reason: Itching / Pruritus Last Admin: 04/09/17 19:30 Dose: 25 mg Folic Acid (Folic Acid) 1 mg PO DAILY [facility] Last Admin: 04/09/17 10:05 Dose: 1 mg Heparin Sodium (Porcine) (Heparin) 5,000 units SC Q12 [facility] Last Admin: 04/09/17 10:07 Dose: Not Given Hydromorphone HCl (Dilaudid) 1 mg IVP Q3 PRN PRN Reason: Pain, severe (8-10) Last Admin: 04/09/17 19:31 Dose: 1 mg Sodium Chloride (Sodium Chloride 0.9%) 1,000 mls @ 100 mls/hr IV .Q10H [facility] Last Admin: 04/09/17 19:33 Dose: Not Given Ceftriaxone Sodium 1 gm/ (Sodium Chloride) 100 mls @ 100 mls/hr IVPB Q24H [facility] Last Admin: 04/09/17 13:11 Dose: 100 mls/hr - Labs Labs: 04/09/17 07:50 04/09/17 07:50 PT 14.8 SECONDS (9.7-12.2) H 04/08/17 05:54 INR 1.3 04/08/17 05:54 APTT 44 SECONDS (21-34) H 04/08/17 05:54 - Head Exam Head Exam: ATRAUMATIC - ENT Exam ENT Exam: Mucous Membranes Dry - Respiratory Exam Respiratory Exam: NORMAL BREATHING PATTERN - Cardiovascular Exam Cardiovascular Exam: +S1, +S2 - GI/Abdominal Exam GI & Abdominal Exam: Normal Bowel Sounds Assessment and Plan (1) Sickle cell pain crisis Assessment & Plan: IV fluids, pain meds, folic acid, 02 via [place] s/p 1 U PRBC Status: Acute (2) Leukocytosis Assessment & Plan: on antibiotics Status: Acute (3) Sickle cell anemia Status: Acute
[2017-04-10] MEDS: DiphenhydrAMINE 50 mg/ml Inj IVP PRN ×8 (01:46→23:24)
[2017-04-10 07:28] LABS: BASO # 0.2 K/uL (0.0-0.2); BASO % 0.9 % (0.0-2.0); EOS # 0.9 K/uL (0.0-0.7); EOS % 4.1 % (0.0-4.0); HEMOGLOBIN 6.9 g/dL (11.0-16.0); LYMPH # 4.3 K/uL (1.0-4.3); LYMPH % 19.7 % (20.0-40.0); MEAN CORPUSCULAR HEMOGLOBIN 29.1 pg (27.0-31.0); MEAN CORPUSCULAR HGB CONC 33.8 g/dL (33.0-37.0); MEAN PLATELET VOLUME 9.5 fL (7.2-11.7); MONO # 1.8 K/uL (0.0-0.8); NEUT # 14.8 K/uL (1.8-7.0); NEUT % 67.3 % (50.0-75.0); NRBC % 0.2 % (0.0-2.0); RBC 2.39 Mil/uL (3.80-5.20); RED CELL DISTRIBUTION WIDTH 16.3 % (11.5-14.5)
[2017-04-10] MEDS ORDERED: Influenza Vaccine 60 mcg/0.5 mL SYR (4YR UP) IM ONE (10:00)
--- NOTE | 2017-04-10 17:54 | CP.PCM.PN ---
Subjective - Date & Time of Evaluation Date of Evaluation: 04/10/17 Time of Evaluation: 08:00 - Subjective Subjective: clinically same Objective - Vital Signs/Intake and Output Vital Signs (last 24 hours): Temp Pulse Resp BP Pulse Ox 98.4 F 100 H 20 132/70 100 04/10/17 16:00 04/10/17 16:00 04/10/17 16:00 04/10/17 16:00 04/10/17 16:00 Intake and Output: 04/10/17 04/10/17 06:59 18:59 Intake Total 1150 2200 Balance 1150 2200 - Medications Medications: Current Medications Diphenhydramine HCl (Benadryl) 25 mg IVP Q3 PRN PRN Reason: Itching / Pruritus Last Admin: 04/10/17 17:23 Dose: 25 mg Folic Acid (Folic Acid) 1 mg PO DAILY [facility] Last Admin: 04/10/17 11:05 Dose: 1 mg Heparin Sodium (Porcine) (Heparin) 5,000 units SC Q12 [facility] Last Admin: 04/10/17 11:05 Dose: Not Given Hydromorphone HCl (Dilaudid) 2 mg IVP Q3 PRN PRN Reason: Pain, severe (8-10) Last Admin: 04/10/17 17:24 Dose: 2 mg Sodium Chloride (Sodium Chloride 0.9%) 1,000 mls @ 100 mls/hr IV .Q10H [facility] Last Admin: 04/09/17 19:33 Dose: Not Given Ceftriaxone Sodium 1 gm/ (Sodium Chloride) 100 mls @ 100 mls/hr IVPB Q24H [facility] Last Admin: 04/10/17 12:26 Dose: 100 mls/hr - Labs Labs: 04/10/17 07:09 04/09/17 07:50 PT 14.8 SECONDS (9.7-12.2) H 04/08/17 05:54 INR 1.3 04/08/17 05:54 APTT 44 SECONDS (21-34) H 04/08/17 05:54 - Constitutional Appears: Well - Head Exam Head Exam: ATRAUMATIC, NORMAL INSPECTION, NORMOCEPHALIC - Eye Exam Eye Exam: EOMI, Normal appearance, PERRL Pupil Exam: NORMAL ACCOMODATION, PERRL - ENT Exam ENT Exam: Mucous Membranes Moist, Normal Exam - Neck Exam Neck Exam: Full ROM, Normal Inspection. absent: Lymphadenopathy - Respiratory Exam Respiratory Exam: Decreased Breath Sounds - Cardiovascular Exam Cardiovascular Exam: REGULAR RHYTHM, +S1, +S2 - GI/Abdominal Exam GI & Abdominal Exam: Soft, Diminished Bowel Sounds - Rectal Exam Rectal Exam: Deferred
[2017-04-10] MEDS: Sodium Chloride 0.9% 1,000 ML IV SCH (22:12)
[2017-04-11] MEDS: DiphenhydrAMINE 50 mg/ml Inj IVP PRN ×7 (02:29→21:36)
[2017-04-11] MEDS: Sodium Chloride 0.9% 1,000 ML IV SCH ×2 (09:24→19:50)
--- NOTE | 2017-04-11 13:32 | CP.PCM.PN ---
Subjective - Date & Time of Evaluation Date of Evaluation: 04/11/17 Time of Evaluation: 08:00 - Subjective Subjective: clinically same Objective - Vital Signs/Intake and Output Vital Signs (last 24 hours): Temp Pulse Resp BP Pulse Ox 98.3 F 97 H 20 117/75 97 04/11/17 08:40 04/11/17 08:40 04/11/17 08:40 04/11/17 08:40 04/11/17 08:40 Intake and Output: 04/11/17 04/11/17 06:59 18:59 Intake Total 540 Balance 540 - Medications Medications: Current Medications Diphenhydramine HCl (Benadryl) 25 mg IVP Q3 PRN PRN Reason: Itching / Pruritus Last Admin: 04/11/17 11:39 Dose: 25 mg Folic Acid (Folic Acid) 1 mg PO DAILY [facility] Last Admin: 04/11/17 09:30 Dose: 1 mg Heparin Sodium (Porcine) (Heparin) 5,000 units SC Q12 [facility] Last Admin: 04/11/17 09:24 Dose: Not Given Hydromorphone HCl (Dilaudid) 2 mg IVP Q3 PRN PRN Reason: Pain, severe (8-10) Last Admin: 04/11/17 11:38 Dose: 2 mg Sodium Chloride (Sodium Chloride 0.9%) 1,000 mls @ 100 mls/hr IV .Q10H [facility] Last Admin: 04/11/17 09:24 Dose: Not Given Ceftriaxone Sodium 1 gm/ (Sodium Chloride) 100 mls @ 100 mls/hr IVPB Q24H [facility] Last Admin: 04/10/17 12:26 Dose: 100 mls/hr - Labs Labs: 04/10/17 07:09 04/09/17 07:50 PT 14.8 SECONDS (9.7-12.2) H 04/08/17 05:54 INR 1.3 04/08/17 05:54 APTT 44 SECONDS (21-34) H 04/08/17 05:54 - Constitutional Appears: Well - Head Exam Head Exam: ATRAUMATIC, NORMAL INSPECTION, NORMOCEPHALIC - Eye Exam Eye Exam: EOMI, Normal appearance, PERRL Pupil Exam: NORMAL ACCOMODATION, PERRL - ENT Exam ENT Exam: Mucous Membranes Moist, Normal Exam - Neck Exam Neck Exam: Full ROM, Normal Inspection. absent: Lymphadenopathy - Respiratory Exam Respiratory Exam: Decreased Breath Sounds - Cardiovascular Exam Cardiovascular Exam: REGULAR RHYTHM, +S1, +S2 - GI/Abdominal Exam GI & Abdominal Exam: Soft, Diminished Bowel Sounds - Rectal Exam Rectal Exam: Deferred
[2017-04-12] MEDS: DiphenhydrAMINE 50 mg/ml Inj IVP PRN ×6 (00:47→18:48)
[2017-04-12] MEDS: Sodium Chloride 0.9% 1,000 ML IV SCH ×2 (05:57→15:50)
[2017-04-12 12:42] LABS: BASO # 0.2 K/uL (0.0-0.2); BASO % 1.1 % (0.0-2.0); EOS # 0.7 K/uL (0.0-0.7); EOS % 4.1 % (0.0-4.0); HEMOGLOBIN 6.9 g/dL (11.0-16.0); LYMPH # 2.7 K/uL (1.0-4.3); LYMPH % 15.1 % (20.0-40.0); MEAN CELL VOLUME 85.5 fL (81.0-99.0); MEAN CORPUSCULAR HEMOGLOBIN 28.6 pg (27.0-31.0); MEAN CORPUSCULAR HGB CONC 33.5 g/dL (33.0-37.0); MEAN PLATELET VOLUME 8.4 fL (7.2-11.7); MONO # 1.3 K/uL (0.0-0.8); MONO % 7.4 % (0.0-10.0); NEUT % 72.3 % (50.0-75.0); NRBC % 0.1 % (0.0-2.0); RBC 2.42 Mil/uL (3.80-5.20); RED CELL DISTRIBUTION WIDTH 17.3 % (11.5-14.5)
[2017-04-12 13:02] LABS: ALB/GLOB RATIO 0.7 (1.0-2.1); ALBUMIN 3.3 g/dL (3.5-5.0); ALT/SGPT 52 U/L (9-52); AST/SGOT 71 U/L (14-36); BLOOD UREA NITROGEN 20 mg/dL (7-17); CALCIUM 8.2 mg/dl (8.6-10.4); GFR AFRICAN-AMERICAN > 60; GFR NON-AFRICAN AMERICAN 56
[2017-04-12] MEDS ORDERED: Meropenem 500 MG in Sodium Chloride 0.9% 100 ML IVPB SCH (14:00)
[2017-04-12] MEDS: HYDROmorphone 1 mg/ml ISec IVP PRN ×2 (15:25→18:48)
[2017-04-12 16:23] VITALS: BP 108/71; PULSE 91; TEMP 98.6; O2SAT 98
--- NOTE | 2017-04-12 18:29 | CP.PCM.PN ---
Subjective - Date & Time of Evaluation Date of Evaluation: 04/12/17 Time of Evaluation: 11:00 - Subjective Subjective: Alert, orientedx3, NAD. Objective - Vital Signs/Intake and Output Vital Signs (last 24 hours): Temp Pulse Resp BP Pulse Ox 98.6 F 91 H 20 108/71 98 04/12/17 16:00 04/12/17 16:00 04/12/17 16:00 04/12/17 16:00 04/12/17 16:00 Intake and Output: 04/12/17 04/12/17 06:59 18:59 Intake Total 1450 1000 Balance 1450 1000 - Medications Medications: Current Medications Diphenhydramine HCl (Benadryl) 25 mg IVP Q3 PRN PRN Reason: Itching / Pruritus Last Admin: 04/12/17 15:24 Dose: 25 mg Folic Acid (Folic Acid) 1 mg PO DAILY [facility] Last Admin: 04/12/17 09:00 Dose: 1 mg Hydromorphone HCl (Dilaudid) 1 mg IVP Q3H PRN PRN Reason: Pain, severe (8-10) Last Admin: 04/12/17 15:25 Dose: 1 mg Sodium Chloride (Sodium Chloride 0.9%) 1,000 mls @ 100 mls/hr IV .Q10H [facility] Last Admin: 04/12/17 15:50 Dose: Not Given Ceftriaxone Sodium 1 gm/ (Sodium Chloride) 100 mls @ 100 mls/hr IVPB Q24H [facility] Last Admin: 04/12/17 12:49 Dose: 100 mls/hr Meropenem 500 mg/ Sodium (Chloride) 100 mls @ 100 mls/hr IVPB Q8 [facility] Last Admin: 04/12/17 13:54 Dose: 100 mls/hr - Labs Labs: 04/12/17 12:38 04/12/17 12:38 PT 14.8 SECONDS (9.7-12.2) H 04/08/17 05:54 INR 1.3 04/08/17 05:54 APTT 44 SECONDS (21-34) H 04/08/17 05:54 Assessment and Plan - Assessment and Plan (Free Text) Assessment: Patient is seen and examined. Feeling much better today. Plan to discharge home by DR Alba Hernandez on macrobid po for UTI and her home medications. Advised to follow up in the office this week.
--- NOTE | 2017-04-12 19:32 | CP.PCM.PN ---
Subjective - Date & Time of Evaluation Date of Evaluation: 04/12/17 Objective - Vital Signs/Intake and Output Vital Signs (last 24 hours): Temp Pulse Resp BP Pulse Ox 98.6 F 91 H 20 108/71 98 04/12/17 16:00 04/12/17 16:00 04/12/17 16:00 04/12/17 16:00 04/12/17 16:00 Intake and Output: 04/12/17 04/13/17 18:59 06:59 Intake Total 1000 Balance 1000 - Medications Medications: Current Medications Diphenhydramine HCl (Benadryl) 25 mg IVP Q3 PRN PRN Reason: Itching / Pruritus Last Admin: 04/12/17 18:48 Dose: 25 mg Folic Acid (Folic Acid) [address] [facility] Last Admin: 04/12/17 09:00 Dose: 1 mg Hydromorphone HCl (Dilaudid) 1 mg IVP Q3H PRN PRN Reason: Pain, severe (8-10) Last Admin: 04/12/17 18:48 Dose: 1 mg Sodium Chloride (Sodium Chloride 0.9%) 1,000 mls @ 100 mls/hr IV .Q10H [facility] Last Admin: 04/12/17 15:50 Dose: Not Given Ceftriaxone Sodium 1 gm/ (Sodium Chloride) 100 mls @ 100 mls/hr IVPB Q24H [facility] Last Admin: 04/12/17 12:49 Dose: 100 mls/hr Meropenem 500 mg/ Sodium (Chloride) 100 mls @ 100 mls/hr IVPB Q8 [facility] Last Admin: 04/12/17 13:54 Dose: 100 mls/hr - Labs Labs: 04/12/17 12:38 04/12/17 12:38 PT 14.8 SECONDS (9.7-12.2) H 04/08/17 05:54 INR 1.3 04/08/17 05:54 APTT 44 SECONDS (21-34) H 04/08/17 05:54
--- NOTE | 2017-04-12 23:23 | CP.PCM.PN ---
Subjective - Date & Time of Evaluation Date of Evaluation: 04/12/17 Time of Evaluation: 18:30 - Subjective Subjective: Feeling better Objective - Vital Signs/Intake and Output Vital Signs (last 24 hours): Temp Pulse Resp BP Pulse Ox 98.6 F 91 H 20 108/71 98 04/12/17 16:00 04/12/17 16:00 04/12/17 16:00 04/12/17 16:00 04/12/17 16:00 Intake and Output: 04/12/17 04/13/17 18:59 06:59 Intake Total 1000 700 Balance 1000 700 - Labs Labs: 04/12/17 12:38 04/12/17 12:38 PT 14.8 SECONDS (9.7-12.2) H 04/08/17 05:54 INR 1.3 04/08/17 05:54 APTT 44 SECONDS (21-34) H 04/08/17 05:54 - Head Exam Head Exam: ATRAUMATIC - Eye Exam Eye Exam: Normal appearance - ENT Exam ENT Exam: Mucous Membranes Dry - Respiratory Exam Respiratory Exam: NORMAL BREATHING PATTERN - Cardiovascular Exam Cardiovascular Exam: +S1, +S2 - GI/Abdominal Exam GI & Abdominal Exam: Normal Bowel Sounds - Extremities Exam Extremities Exam: Normal Inspection Assessment and Plan (1) Sickle cell pain crisis Assessment & Plan: IV fluids, pain meds, folic acid, 02 via NC s/p PRBC transfusion Status: Acute (2) Leukocytosis Assessment & Plan: likely reactive to sickle cell Status: Acute (3) Sickle cell anemia Assessment & Plan: folic acid and hydrea Status: Acute
== END 2017-04-12 20:30 | disposition home or self-care (01) | DRG 812 ==
LOC: C.ER 03:58 → C.3T 06:10
PROVIDERS: ADMIT Internal Medicine Nephrology; ATTEND Internal Medicine Nephrology
PROC: 30233N1 Transfusion of Nonautologous Red Blood Cells into Peripheral Vein, Percutaneous Approach (ICD-10-PCS; principal; 2017-04-10)
DX: D57.00 Hb-SS disease with crisis, unspecified (principal); G43.909 Migraine, unspecified, not intractable, without status migrainosus; N39.0 Urinary tract infection, site not specified; Z90.49 Acquired absence of other specified parts of digestive tract

== ENCOUNTER 2017-04-19 01:29 | Inpatient (IN) | payer MEDICAID, MEDICARE ==
[2017-04-19 01:29] VITALS: BMI 22.4
[2017-04-19] MEDS ORDERED: Sodium Chloride 0.9% 1,000 ML ONE (02:01)
[2017-04-19] MEDS ORDERED: Sodium Chloride 0.9% 1,000 ML IV ONE (02:02)
[2017-04-19] MEDS ORDERED: Sodium Chloride 0.9% 500 ML IV ONE (02:02)
[2017-04-19 02:32] LABS: BASO # 0.3 K/uL (0.0-0.2); BASO % 1.3 % (0.0-2.0); EOS # 0.6 K/uL (0.0-0.7); EOS % 2.9 % (0.0-4.0); LYMPH # 4.2 K/uL (1.0-4.3); LYMPH % 19.7 % (20.0-40.0); MEAN CELL VOLUME 84.7 fL (81.0-99.0); MEAN CORPUSCULAR HEMOGLOBIN 28.2 pg (27.0-31.0); MEAN CORPUSCULAR HGB CONC 33.3 g/dL (33.0-37.0); MONO # 2.2 K/uL (0.0-0.8); MONO % 10.2 % (0.0-10.0); NEUT # 14.1 K/uL (1.8-7.0); NEUT % 65.9 % (50.0-75.0); NRBC % 0.1 % (0.0-2.0); RBC 2.3 Mil/uL (3.80-5.20); WHITE BLOOD COUNT 21.4 K/uL (4.8-10.8)
[2017-04-19 02:47] LABS: HEMOGLOBIN 6.5 g/dL (11.0-16.0)
--- NOTE | 2017-04-19 02:53 | C.PDOC ---
History Of Present Illness 36 year old female with history of sickle cell disease presents to the ED complaining of generalized body aches and weakness x2 days. Patient reports that symptoms are typical of past sickle cell crises. Patient was admitted 10 days ago for similar complaints. Chief Complaint (Nursing): Medical Clearance History Per: Patient History/Exam Limitations: no limitations Onset/Duration Of Symptoms: Days Current Symptoms Are (Timing): Still Present Reports Recently: Hospitalized Recent travel outside of the [place]: No Past Medical History Reviewed: Historical Data, Nursing Documentation, Vital Signs Vital Signs: Last Vital Signs Temp 98.2 F 04/19/17 01:34 Pulse 92 H 04/19/17 02:42 Resp 18 04/19/17 02:42 BP 122/69 04/19/17 02:42 Pulse Ox 98 04/19/17 04:04 - Medical History PMH: Anemia, Migraine, Sickle Cell Disease Denies: Alzheimer's Disease, Asthma, Atrial Fibrillation, Bronchitis, Cardia Arrhythmia, CHF, COPD, Dementia, Emphysema, HIV, HTN, Hypercholesterolemia, Hyperthyroidism, Hypothyroidism, Kidney Stones, Mitral Valve Prolapse, Multiple Sclerosis, Parkinson's Disease, Peripheral Edema, Pneumonia, Pulmonary Embolism , Chronic Kidney Disease, Seizures, Sleep Apnea, TIA Surgical History: Cholecystectomy (2003) Denies: Pacemaker - [facility] Procedures PACKED CELL TRANSFUSION (07/26/12) TETANUS TOXOID ADMINIST (11/14/12) TRANSFUSE NONAUT RED BLOOD CELLS IN PERIPH VEIN, PERC (04/08/17) Family History: States: Unknown Family Hx - Social History Hx Tobacco Use: No Hx Alcohol Use: No Hx Substance Use: No - Immunization History Hx Tetanus Toxoid Vaccination: No Hx Influenza Vaccination: Yes Hx Pneumococcal Vaccination: Yes Review Of Systems Except As Marked, All Systems Reviewed And Found Negative. Constitutional: Positive for: Weakness Musculoskeletal: Positive for: Other (Generalized body aches ) Physical Exam - Physical Exam Appears: Non-toxic, No Acute Distress Skin: Warm, Dry Eye(s): bilateral: Conjunctiva Pale Oral Mucosa: Moist Throat: Normal Neck: Normal, Normal ROM, Supple Chest: Symmetrical Cardiovascular: Rhythm Regular (Rate Regular ) Respiratory: Normal Breath Sounds, No Rales, No Rhonchi, No Wheezing Gastrointestinal/Abdominal: Soft, No Tenderness Back: Normal Inspection Extremity: Normal ROM, No Deformity Extremity: Bilateral: Atraumatic Neurological/Psych: Oriented x3, Normal Speech Gait: Steady ED Course And Treatment - Laboratory Results Result Diagrams: 04/19/17 02:26 04/19/17 03:24 O2 Sat by Pulse Oximetry: 98 Disposition Discussed With : Rosalina Hernandez Doctor Will See Patient In The: Hospital Counseled Patient/Family Regarding: Diagnosis - Disposition Disposition: HOSPITALIZED Disposition Time: 03:43 Condition: STABLE Forms: [facility] ([place]an) - POA Present On Arrival: None - Clinical Impression Clinical Impression: Sickle cell crisis, Severe anemia - Scribe Statement The provider has reviewed the documentation as recorded by the Scribe (Nam Scott) Provider Attestation: All medical record entries made by the Scribe were at my direction and personally dictated by me. I have reviewed the chart and agree that the record accurately reflects my personal performance of the history, physical exam, medical decision making, and the department course for this patient. I have also personally directed, reviewed, and agree with the discharge instructions and disposition.
[2017-04-19 03:41] LABS: SQUAMOUS EPITHIAL 12 /hpf (0-5); URINE BACTERIA MANY (<OCC); URINE BILIRUBIN NEGATIVE (NEGATIVE); URINE BLOOD 2+ (NEGATIVE); URINE CLARITY Turbid (Clear); URINE COLOR Yellow (YELLOW); URINE GLUCOSE (UA) NORMAL (Normal); URINE LEUKOCYTE ESTERASE 3+ Leu/uL (Negative); URINE PROTEIN 2+ mg/dL (NEGATIVE); URINE UROBILINOGEN NORMAL mg/dL (0.2-1.0)
[2017-04-19 03:43] LABS: HCG,QUALITATIVE URINE NEGATIVE (NEGATIVE)
[2017-04-19 03:46] LABS: ALB/GLOB RATIO 0.7 (1.0-2.1); ALBUMIN 3.3 g/dL (3.5-5.0); ALT/SGPT 73 U/L (9-52); AST/SGOT 97 U/L (14-36); BLOOD UREA NITROGEN 19 mg/dL (7-17); CALCIUM 7.4 mg/dl (8.6-10.4); GFR AFRICAN-AMERICAN > 60; GFR NON-AFRICAN AMERICAN 56
[2017-04-19 03:49] LABS: INR 1.3; PROTHROMBIN TIME 14.6 SECONDS (9.7-12.2)
[2017-04-19] MEDS: Dextrose 5%/0.45% NS 1,000 ML IV SCH ×2 (04:17→20:52)
[2017-04-19] MEDS ORDERED: DiphenhydrAMINE 50 mg/ml Inj ONE ×4 (06:43→19:58)
[2017-04-19] MEDS: DiphenhydrAMINE 50 mg/ml Inj IVP PRN ×4 (06:49→20:03)
[2017-04-19] MEDS ORDERED: Enoxaparin 40 mg Syringe ONE (11:09)
[2017-04-19] MEDS: Enoxaparin 40 mg Syringe SC SCH (11:11)
--- NOTE | 2017-04-19 16:23 | CP.PCM.HP ---
History of Present Illness - History of Present Illness History of Present Illness: 36 yo F with PMH of Sickle cell disease, anemia, migraines presents to ED with c /o generalized bodyaches and weakness since 2 days. Pt with similar complaints 10 days prior and s/p recent admission for sickle cell crisis. Pt reports symptoms are similar to past episodes of sickle cell crises. Pt admitted for management of sickle cell crisis and also noted to have UTI on presentation. Denies fever, chills, dyspnea, n/v/d. Present on Admission - Present on Admission Any Indicators Present on Admission: No Review of Systems - Constitutional Constitutional: Weakness - Genitourinary Genitourinary: Dysuria - Musculoskeletal Musculoskeletal: As Per HPI Past Patient History - Past Medical History & Family History Past Medical History?: Yes - Past Social History Smoking Status: Never Smoked - CARDIAC Hx Atrial Fibrillation: No Hx Cardia Arrhythmia: No Hx Congestive Heart Failure: No Hx Hypercholesterolemia: No Hx Hypertension: No Hx Mitral Valve Prolapse: No Hx Pacemaker: No Hx Peripheral Edema: No - PULMONARY Hx Asthma: No Hx Bronchitis: No Hx Chronic Obstructive Pulmonary Disease (COPD): No Hx Emphysema: No Hx Pneumonia: No Hx Pulmonary Embolism: No Hx Sleep Apnea: No - NEUROLOGICAL Hx Alzheimer's Disease: No Hx Dementia: No Hx Migraine: Yes Hx Multiple Sclerosis: No Hx Parkinson's Disease: No Hx Seizures: No Hx Transient Ischemic Attacks (TIA): No - HEENT Hx HEENT Problems: No Hx Blind: No Hx Cataracts: No Hx Deafness: No Hx Difficulty Chewing: No Hx Epistaxis: No Hx Glaucoma: No Hx Macular Degeneration: No - RENAL Hx Chronic Kidney Disease: No Hx Kidney Stones: No - ENDOCRINE/METABOLIC Hx Hyperthyroidism: No Hx Hypothyroidism: No - HEMATOLOGICAL/ONCOLOGICAL Hx Anemia: Yes Hx Human Immunodeficiency Virus (HIV): No Hx Sickle Cell Disease: Yes - MUSCULOSKELETAL/RHEUMATOLOGICAL Hx Falls: No - PSYCHIATRIC Hx Substance Use: No - SURGICAL HISTORY Hx Cholecystectomy: Yes (2003) - ANESTHESIA Hx Anesthesia: Yes Hx Anesthesia Reactions: No Meds Allergies/Adverse Reactions: Allergies Allergy/AdvReac Type Severity Reaction Status Date / Time droperidol Allergy Verified 04/19/17 01:43 tramadol Allergy Verified 04/19/17 01:43 inapsine Allergy RASH Uncoded 04/19/17 01:43 Physical Exam - Constitutional Appears: No Acute Distress - Head Exam Head Exam: ATRAUMATIC, NORMAL INSPECTION, NORMOCEPHALIC - Eye Exam Eye Exam: EOMI, Normal appearance, PERRL Pupil Exam: NORMAL ACCOMODATION, PERRL - ENT Exam ENT Exam: Mucous Membranes Moist - Neck Exam Neck exam: Positive for: Full Rom - Respiratory Exam Respiratory Exam: Decreased Breath Sounds - Cardiovascular Exam Cardiovascular Exam: REGULAR RHYTHM, +S1, +S2 - GI/Abdominal Exam GI & Abdominal Exam: Diminished Bowel Sounds, Soft - Rectal Exam Rectal Exam: Deferred - Neurological Exam Neurological exam: Alert, Oriented x3 Results - Vital Signs Recent Vital Signs: Last Vital Signs Temp 98.5 F 04/19/17 15:09 Pulse 95 H 04/19/17 15:09 Resp 18 04/19/17 15:09 BP 120/79 04/19/17 15:09 Pulse Ox 100 04/19/17 15:09 - Labs Result Diagrams: 04/19/17 02:26 04/19/17 03:24 Labs: Laboratory Results - last 24 hr 04/19/17 04/19/17 04/19/17 02:26 02:26 02:26 WBC 21.4 H RBC 2.30 L Hgb 6.5 L* Hct 19.5 L MCV 84.7 MCH 28.2 MCHC 33.3 RDW 17.0 H Plt Count 246 MPV 9.0 Neut % (Auto) 65.9 Lymph % (Auto) 19.7 L [place] % (Auto) 10.2 H Eos % (Auto) 2.9 Baso % (Auto) 1.3 Neut # (Auto) 14.1 H Lymph # (Auto) 4.2 [place] # (Auto) 2.2 H Eos # (Auto) 0.6 Baso # (Auto) 0.3 H Retic Count PT 14.6 H INR 1.3 APTT 39 H Sodium Cancelled Potassium Cancelled Chloride Cancelled Carbon Dioxide Cancelled Anion Gap Cancelled BUN Cancelled Creatinine Cancelled Est GFR ( Amer) Cancelled Est GFR (Non-Af Amer) Cancelled Random Glucose Cancelled Calcium Cancelled Total Bilirubin Cancelled AST Cancelled ALT Cancelled Alkaline Phosphatase Cancelled Total Protein Cancelled Albumin Cancelled Globulin Cancelled Albumin/Globulin Ratio Cancelled Urine Color Urine Clarity Urine pH Ur Specific [place] Urine Protein Urine Glucose (UA) Urine Ketones Urine Blood Urine Nitrate Urine Bilirubin Urine Urobilinogen Ur Leukocyte Esterase Urine WBC (Auto) Urine RBC (Auto) Ur Squamous Epith Cells Urine Bacteria Urine HCG, Qual Blood Type Antibody Screen 04/19/17 04/19/17 04/19/17 02:26 02:26 03:24 WBC RBC Hgb Hct MCV MCH MCHC RDW Plt Count MPV Neut % (Auto) Lymph % (Auto) [place] % (Auto) Eos % (Auto) Baso % (Auto) Neut # (Auto) Lymph # (Auto) [place] # (Auto) Eos # (Auto) Baso # (Auto) Retic Count 3.5 H D PT INR APTT Sodium Potassium Chloride Carbon Dioxide Anion Gap BUN Creatinine Est GFR ( Amer) Est GFR (Non-Af Amer) Random Glucose Calcium Total Bilirubin AST ALT Alkaline Phosphatase Total Protein Albumin Globulin Albumin/Globulin Ratio Urine Color Yellow Urine Clarity Turbid Urine pH 6.0 Ur Specific [place] 1.010 Urine Protein 2+ H Urine Glucose (UA) Normal Urine Ketones Negative Urine Blood 2+ H Urine Nitrate Positive H Urine Bilirubin Negative Urine Urobilinogen Normal Ur Leukocyte Esterase 3+ H Urine WBC (Auto) 4586 H Urine RBC (Auto) 15 H Ur Squamous Epith Cells 12 H Urine Bacteria Many H Urine HCG, Qual Negative Blood Type O POSITIVE Antibody Screen Negative 04/19/17 03:24 WBC RBC Hgb Hct MCV MCH MCHC RDW Plt Count MPV Neut % (Auto) Lymph % (Auto) [place] % (Auto) Eos % (Auto) Baso % (Auto) Neut # (Auto) Lymph # (Auto) [place] # (Auto) Eos # (Auto) Baso # (Auto) Retic Count PT INR APTT Sodium 136 Potassium 3.9 Chloride 109 H Carbon Dioxide 18 L Anion Gap 13 BUN 19 H Creatinine 1.1 Est GFR ( Amer) > 60 Est GFR (Non-Af Amer) 56 Random Glucose 88 Calcium 7.4 L Total Bilirubin 1.7 H AST 97 H D ALT 73 H D Alkaline Phosphatase 175 H Total Protein 8.3 Albumin 3.3 L Globulin 5.0 H Albumin/Globulin Ratio 0.7 L Urine Color Urine Clarity Urine pH Ur Specific [place] Urine Protein Urine Glucose (UA) Urine Ketones Urine Blood Urine Nitrate Urine Bilirubin Urine Urobilinogen Ur Leukocyte Esterase Urine WBC (Auto) Urine RBC (Auto) Ur Squamous Epith Cells Urine Bacteria Urine HCG, Qual Blood Type Antibody Screen Assessment & Plan (1) Severe anemia Status: Acute (2) Sickle cell anemia with pain Status: Acute (3) Animal bite wound Status: Acute (4) Leg pain Status: Acute (5) Leukocytosis Status: Acute (6) Myalgia Status: Acute (7) Pain Status: Acute (8) Sickle cell anemia Status: Acute (9) Sickle cell pain crisis Status: Acute (10) UTI (urinary tract infection) Status: Acute - Assessment and Plan (Free Text) Plan: pain medicine dilaudid protonix lovenox IVF monitor cbc admitted for sickle cell crisis pt also with UTI started on nitrofurantoin
[2017-04-20] MEDS: DiphenhydrAMINE 50 mg/ml Inj IVP PRN ×7 (00:35→21:18)
[2017-04-20] MEDS: Enoxaparin 40 mg Syringe SC SCH (09:13)
[2017-04-20] MEDS ORDERED: Influenza Vaccine 60 mcg/0.5 mL SYR (4YR UP) IM ONE (10:00)
[2017-04-20] MEDS: Dextrose 5%/0.45% NS 1,000 ML IV SCH ×2 (12:54→16:50)
[2017-04-20] MEDS ORDERED: Cefepime 1 GM in Sodium Chloride 0.9% 100 ML IVPB SCH (16:30)
--- NOTE | 2017-04-20 17:17 | CP.PCM.PN ---
Subjective - Date & Time of Evaluation Date of Evaluation: 04/20/17 Time of Evaluation: 09:00 - Subjective Subjective: clinically same Objective - Vital Signs/Intake and Output Vital Signs (last 24 hours): Temp Pulse Resp BP Pulse Ox 98.9 F 111 H 20 107/73 97 04/20/17 16:50 04/20/17 16:50 04/20/17 16:50 04/20/17 16:50 04/20/17 16:50 Intake and Output: 04/20/17 04/20/17 06:59 18:59 Intake Total 880 Balance 880 - Medications Medications: Current Medications Diphenhydramine HCl (Benadryl) 25 mg IVP Q3 PRN PRN Reason: Pain, moderate (4-7) Last Admin: 04/20/17 15:09 Dose: 25 mg Enoxaparin Sodium (Lovenox) 40 mg SC DAILY [facility] Last Admin: 04/20/17 09:13 Dose: Not Given Folic Acid (Folic Acid) 2 mg PO DAILY [facility] Last Admin: 04/20/17 09:12 Dose: 2 mg Hydromorphone HCl (Dilaudid) 2 mg IVP Q3 PRN PRN Reason: Pain, moderate (4-7) Last Admin: 04/20/17 15:09 Dose: 2 mg Dextrose/Sodium Chloride (Dextrose 5%/0.45% Ns 1000 Ml) 1,000 mls @ 60 mls/hr IV .[id number] [facility] Last Admin: 04/20/17 16:50 Dose: 60 mls/hr Cefepime HCl 1 gm/ Sodium (Chloride) 100 mls @ 100 mls/hr IVPB Q12H [facility] Last Admin: 04/20/17 16:51 Dose: 100 mls/hr - Labs Labs: 04/19/17 02:26 04/19/17 03:24 PT 14.6 SECONDS (9.7-12.2) H 04/19/17 02:26 INR 1.3 04/19/17 02:26 APTT 39 SECONDS (21-34) H 04/19/17 02:26 - Constitutional Appears: Well - Head Exam Head Exam: ATRAUMATIC, NORMAL INSPECTION, NORMOCEPHALIC - Eye Exam Eye Exam: EOMI, Normal appearance, PERRL Pupil Exam: NORMAL ACCOMODATION, PERRL - ENT Exam ENT Exam: Mucous Membranes Moist, Normal Exam - Neck Exam Neck Exam: Full ROM, Normal Inspection. absent: Lymphadenopathy - Respiratory Exam Respiratory Exam: Decreased Breath Sounds - Cardiovascular Exam Cardiovascular Exam: REGULAR RHYTHM, +S1, +S2 - GI/Abdominal Exam GI & Abdominal Exam: Soft, Diminished Bowel Sounds - Rectal Exam Rectal Exam: Deferred Assessment and Plan (1) Severe anemia Status: Acute (2) Sickle cell anemia with pain Status: Acute (3) Animal bite wound Status: Acute (4) Leg pain Status: Acute (5) Leukocytosis Status: Acute (6) Myalgia Status: Acute (7) Pain Status: Acute (8) Sickle cell anemia Status: Acute (9) Sickle cell pain crisis Status: Acute (10) UTI (urinary tract infection) Status: Acute
--- NOTE | 2017-04-20 18:09 | CP.PCM.CON ---
History of Present Illness - History of Present Illness History of Present Illness: Infectious Disease Consult' HPI; 36 yo F with PMH of Sickle cell disease, anemia, migraines presents to ED with c /o generalized bodyaches and weakness since 2 days. Pt with similar complaints 10 days prior and s/p recent admission for sickle cell crisis. Pt reports symptoms are similar to past episodes of sickle cell crises. Pt admitted for management of sickle cell crisis and also noted to have UTI on presentation. Denies fever, chills, dyspnea, n/v/d. ON ADMISSION PATIENT WAS FOUND TO HAVE LEUKOCYTOSIS WITH wbc COUNT OF 21.4, HEMOGLOBIN OF 6.5, AND RETICULOCYTE COUNT OF 3.5. pATIENT IS PRESENTLY GETTING mACROBID 1 TABLET BY MOUTH TWICE A DAY. U/A IS HAZY WITH 3+ LEUKOCYTE ESTRASE WBC OF 4000 AND MORE AND MANY BACTERIA. Patient admits to frequency and dysuria.DENIES ANY HISTORY OF KIDNEY STONES. PMH: Anemia, Migraine, Sickle Cell Disease Surgical History: Cholecystectomy (2003) Denies: Pacemaker Allergy; droperidol, tramadol. - [facility] Procedures PACKED CELL TRANSFUSION (07/26/12) TETANUS TOXOID ADMINIST (11/14/12) TRANSFUSE NON AUT RED BLOOD CELLS IN PERIPH VEIN, PERC (04/08/17) Family History: States: Unknown Family Hx - Social History Hx Tobacco Use: No Hx Alcohol Use: No Hx Substance Use: No - Immunization History Hx Tetanus Toxoid Vaccination: No Hx Influenza Vaccination: Yes Hx Pneumococcal Vaccination: Yes Review of Systems - Constitutional Constitutional: As Per HPI. absent: Chills, Fever, Headache - EENT Eyes: Photophobia. absent: Discharge Nose/Mouth/Throat: absent: Nasal Congestion, Mouth Lesions - Breasts Breasts: absent: Change in Shape - Cardiovascular Cardiovascular: absent: Chest Pain - Respiratory Respiratory: Cough, Wheezing - Gastrointestinal Gastrointestinal: Abdominal Pain (LOWER ABDOMINAL DISCOMFORT.). absent: Constipation, Diarrhea - Genitourinary Genitourinary: Dysuria, Flank Pain, Freq UTI - Musculoskeletal Musculoskeletal: Arthralgias, Back Pain, Myalgias, Radiating Pain into Limb - Neurological Neurological: absent: Paresthesias - Psychiatric Psychiatric: Anxiety - Hematologic/Lymphatic Hematologic: As Per HPI. absent: Lymphadenopathy Past Patient History - Past Medical History & Family History Past Medical History?: Yes - Past Social History Smoking Status: Never Smoked - CARDIAC Hx Atrial Fibrillation: No Hx Cardia Arrhythmia: No Hx Congestive Heart Failure: No Hx Hypercholesterolemia: No Hx Hypertension: No Hx Mitral Valve Prolapse: No Hx Pacemaker: No Hx Peripheral Edema: No - PULMONARY Hx Asthma: No Hx Bronchitis: No Hx Chronic Obstructive Pulmonary Disease (COPD): No Hx Emphysema: No Hx Pneumonia: No Hx Pulmonary Embolism: No Hx Sleep Apnea: No - NEUROLOGICAL Hx Alzheimer's Disease: No Hx Dementia: No Hx Migraine: Yes Hx Multiple Sclerosis: No Hx Parkinson's Disease: No Hx Seizures: No Hx Transient Ischemic Attacks (TIA): No - HEENT Hx HEENT Problems: No Hx Blind: No Hx Cataracts: No Hx Deafness: No Hx Difficulty Chewing: No Hx Epistaxis: No Hx Glaucoma: No Hx Macular Degeneration: No - RENAL Hx Chronic Kidney Disease: No Hx Kidney Stones: No - ENDOCRINE/METABOLIC Hx Hyperthyroidism: No Hx Hypothyroidism: No - HEMATOLOGICAL/ONCOLOGICAL Hx Anemia: Yes Hx Human Immunodeficiency Virus (HIV): No Hx Sickle Cell Disease: Yes - INTEGUMENTARY Hx Dermatological Problems: No - MUSCULOSKELETAL/RHEUMATOLOGICAL Hx Falls: No - GASTROINTESTINAL Hx Gastrointestinal Disorders: No - GENITOURINARY/GYNECOLOGICAL Hx Genitourinary Disorders: No - PSYCHIATRIC Hx Substance Use: No - SURGICAL HISTORY Hx Surgeries: Yes Hx Cholecystectomy: Yes (2003) - ANESTHESIA Hx Anesthesia: Yes Hx Anesthesia Reactions: No Hx Malignant Hyperthermia: No Has any member of the family had a problem w/ anesthesia?: No Meds Allergies/Adverse Reactions: Allergies Allergy/AdvReac Type Severity Reaction Status Date / Time droperidol Allergy Verified 04/19/17 01:43 tramadol Allergy Verified 04/19/17 01:43 inapsine Allergy RASH Uncoded 04/19/17 01:43 - Medications Medications: Current Medications Diphenhydramine HCl (Benadryl) 25 mg IVP Q3 PRN PRN Reason: Pain, moderate (4-7) Last Admin: 04/20/17 15:09 Dose: 25 mg Enoxaparin Sodium (Lovenox) 40 mg SC DAILY [facility] [place] Last Admin: 04/20/17 09:13 Dose: Not Given Folic Acid (Folic Acid) 2 mg PO DAILY [facility] [place] Last Admin: 04/20/17 09:12 Dose: 2 mg Hydromorphone HCl (Dilaudid) 2 mg IVP Q3 PRN PRN Reason: Pain, moderate (4-7) Last Admin: 04/20/17 15:09 Dose: 2 mg Dextrose/Sodium Chloride (Dextrose 5%/0.45% Ns 1000 Ml) 1,000 mls @ 60 mls/hr IV .[id number] [facility] [place] Last Admin: 04/20/17 16:50 Dose: 60 mls/hr Cefepime HCl 1 gm/ Sodium (Chloride) 100 mls @ 100 mls/hr IVPB Q12H [facility] [place] Last Admin: 04/20/17 16:51 Dose: 100 mls/hr Physical Exam - Constitutional Appears: No Acute Distress - Head Exam Head Exam: NORMAL INSPECTION - Eye Exam Eye Exam: EOMI, PERRL - ENT Exam ENT Exam: Normal Oropharynx - Neck Exam Neck exam: Positive for: Normal Inspection - Respiratory Exam Respiratory Exam: Clear to Auscultation Bilateral, NORMAL BREATHING PATTERN - Cardiovascular Exam Cardiovascular Exam: Tachycardia, REGULAR RHYTHM, +S1, +S2 - GI/Abdominal Exam GI & Abdominal Exam: Normal Bowel Sounds, Soft. absent: Tenderness - Extremities Exam Extremities exam: Positive for: pedal pulses present. Negative for: calf tenderness, pedal edema - Neurological Exam Neurological exam: Alert, CN II-XII Intact, Oriented x3, Reflexes Normal - Psychiatric Exam Psychiatric exam: Normal Mood - Skin Skin Exam: Pallor Results - Vital Signs Recent Vital Signs: Last Vital Signs Temp 98.9 F 04/20/17 16:50 Pulse 111 H 04/20/17 16:50 Resp 20 04/20/17 16:50 BP 107/73 04/20/17 16:50 Pulse Ox 97 04/20/17 16:50 - Labs Result Diagrams: 04/19/17 02:26 04/19/17 03:24 Assessment & Plan (1) UTI (urinary tract infection) Status: Acute (2) Leukocytosis Status: Acute (3) Severe anemia Status: Acute (4) Sickle cell anemia with pain Status: Acute - Assessment and Plan (Free Text) Plan: PLAN; PANCULTURES UA/ URINE CULTURES DC PO MACROBID. START IV MERREM 1GM IVPB MG EVERY 8 HOURLY.04/20/17 ANALGESICS PER PMD. HEMATOLOGY EVALUATION FOR SEVERE ANEMIA. FOLLOW CULTURES TO ADJUST ANTIBIOTICS. THANK YOU VERY MUCH FOR ALLOWING ME TO PARTICIPATE IN THE CARE OF YOUR PATIENT.
[2017-04-20] MEDS: Meropenem 1 GM in Sodium Chloride 0.9% 100 ML IVPB SCH (21:26)
[2017-04-21] MEDS: DiphenhydrAMINE 50 mg/ml Inj IVP PRN ×8 (00:16→21:22)
[2017-04-21] MEDS: Dextrose 5%/0.45% NS 1,000 ML IV SCH ×2 (06:13→22:42)
[2017-04-21] MEDS: Meropenem 1 GM in Sodium Chloride 0.9% 100 ML IVPB SCH ×3 (06:14→21:22)
[2017-04-21 07:00] LABS: MEAN CORPUSCULAR HEMOGLOBIN 28.6 pg (27.0-31.0); MEAN CORPUSCULAR HGB CONC 33.2 g/dL (33.0-37.0); MEAN PLATELET VOLUME 9.2 fL (7.2-11.7); RBC 2.03 Mil/uL (3.80-5.20); RED CELL DISTRIBUTION WIDTH 17.3 % (11.5-14.5)
[2017-04-21 07:31] LABS: HEMOGLOBIN 5.8 g/dL (11.0-16.0)
[2017-04-21] MEDS: Enoxaparin 40 mg Syringe SC SCH (12:08)
--- NOTE | 2017-04-21 13:15 | CP.PCM.CON ---
History of Present Illness - History of Present Illness History of Present Illness: 36 year old female with a history of sickle cell anemia, admitted with sickle cell pain crisis. The patient reports to increasing diffuse bone pain which did not improve with her oral pain meds. She denies fevers and chills. She does report to progressive fatigue but no shortness of breath. She denies abnormal bleeding and bruising. Past medical history: Sickle cell anemia Past surgical history: Portacath Family history: Parents have the trait. Social history: Denies tobacco, alcohol, and illicit drug use. Allergies: Droperidol, tramadol Review of systems: All remaining review of systems including HEENT, cardiovascular, respiratory, gastrointestinal, genitourinary, musculoskeletal, dermatologic, neurologic, and psychiatric are negative unless mentioned in the HPI. Past Patient History - Past Medical History & Family History Past Medical History?: Yes - Past Social History Smoking Status: Never Smoked - CARDIAC Hx Atrial Fibrillation: No Hx Cardia Arrhythmia: No Hx Congestive Heart Failure: No Hx Hypercholesterolemia: No Hx Hypertension: No Hx Mitral Valve Prolapse: No Hx Pacemaker: No Hx Peripheral Edema: No - PULMONARY Hx Asthma: No Hx Bronchitis: No Hx Chronic Obstructive Pulmonary Disease (COPD): No Hx Emphysema: No Hx Pneumonia: No Hx Pulmonary Embolism: No Hx Sleep Apnea: No - NEUROLOGICAL Hx Alzheimer's Disease: No Hx Dementia: No Hx Migraine: Yes Hx Multiple Sclerosis: No Hx Parkinson's Disease: No Hx Seizures: No Hx Transient Ischemic Attacks (TIA): No - HEENT Hx HEENT Problems: No Hx Blind: No Hx Cataracts: No Hx Deafness: No Hx Difficulty Chewing: No Hx Epistaxis: No Hx Glaucoma: No Hx Macular Degeneration: No - RENAL Hx Chronic Kidney Disease: No Hx Kidney Stones: No - ENDOCRINE/METABOLIC Hx Hyperthyroidism: No Hx Hypothyroidism: No - HEMATOLOGICAL/ONCOLOGICAL Hx Anemia: Yes Hx Human Immunodeficiency Virus (HIV): No Hx Sickle Cell Disease: Yes - INTEGUMENTARY Hx Dermatological Problems: No - MUSCULOSKELETAL/RHEUMATOLOGICAL Hx Falls: No - GASTROINTESTINAL Hx Gastrointestinal Disorders: No - GENITOURINARY/GYNECOLOGICAL Hx Genitourinary Disorders: No - PSYCHIATRIC Hx Substance Use: No - SURGICAL HISTORY Hx Surgeries: Yes Hx Cholecystectomy: Yes (2003) - ANESTHESIA Hx Anesthesia: Yes Hx Anesthesia Reactions: No Hx Malignant Hyperthermia: No Has any member of the family had a problem w/ anesthesia?: No Meds Allergies/Adverse Reactions: Allergies Allergy/AdvReac Type Severity Reaction Status Date / Time droperidol Allergy Verified 04/19/17 01:43 tramadol Allergy Verified 04/19/17 01:43 inapsine Allergy RASH Uncoded 04/19/17 01:43 - Medications Medications: Current Medications Diphenhydramine HCl (Benadryl) 25 mg IVP Q3 PRN PRN Reason: Pain, moderate (4-7) Last Admin: 04/21/17 12:20 Dose: 25 mg Enoxaparin Sodium (Lovenox) 40 mg SC DAILY [facility] Last Admin: 04/21/17 12:08 Dose: Not Given Folic Acid (Folic Acid) 2 mg PO DAILY [facility] Last Admin: 04/21/17 09:28 Dose: 2 mg Hydromorphone HCl (Dilaudid) 2 mg IVP Q3 PRN PRN Reason: Pain, moderate (4-7) Last Admin: 04/21/17 12:21 Dose: 2 mg Dextrose/Sodium Chloride (Dextrose 5%/0.45% Ns 1000 Ml) 1,000 mls @ 60 mls/hr IV .[id number] [facility] Last Admin: 04/21/17 06:13 Dose: Not Given Meropenem 1 gm/ Sodium (Chloride) 100 mls @ 100 mls/hr IVPB Q8 [facility] Last Admin: 04/21/17 06:14 Dose: 100 mls/hr Physical Exam - Head Exam Head Exam: ATRAUMATIC - Eye Exam Eye Exam: Normal appearance - ENT Exam ENT Exam: Mucous Membranes Dry - Respiratory Exam Respiratory Exam: NORMAL BREATHING PATTERN - Cardiovascular Exam Cardiovascular Exam: +S1, +S2 - GI/Abdominal Exam GI & Abdominal Exam: Normal Bowel Sounds - Extremities Exam Extremities exam: Positive for: normal inspection - Neurological Exam Neurological exam: Oriented x3 - Psychiatric Exam Psychiatric exam: Normal Affect, Normal Mood - Skin Skin Exam: Warm Results - Vital Signs Recent Vital Signs: Last Vital Signs Temp 98.3 F 04/21/17 09:09 Pulse 97 H 04/21/17 09:09 Resp 20 04/21/17 09:09 BP 109/70 04/21/17 09:09 Pulse Ox 100 04/21/17 09:09 - Labs Result Diagrams: 04/21/17 06:57 04/19/17 03:24 Labs: Laboratory Results - last 24 hr 04/21/17 06:57 WBC 23.0 H RBC 2.03 L Hgb 5.8 L* Hct 17.5 L MCV 86.0 MCH 28.6 MCHC 33.2 RDW 17.3 H Plt Count 223 MPV 9.2 Differential Comment Assessment & Plan (1) Sickle cell anemia with pain Assessment and Plan: IV fluids, pain meds, folic acid, 02 via NC recommend PRBC transfusion Status: Acute (2) Leukocytosis Assessment and Plan: on antibiotics may have reactive component from sickle cell Status: Acute (3) Sickle cell anemia Assessment and Plan: folic acid, outpatient f/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 Status: Acute
--- NOTE | 2017-04-21 15:22 | CP.PCM.PN ---
Subjective - Date & Time of Evaluation Date of Evaluation: 04/21/17 Time of Evaluation: 09:00 - Subjective Subjective: clinically same Objective - Vital Signs/Intake and Output Vital Signs (last 24 hours): Temp Pulse Resp BP Pulse Ox 98.3 F 97 H 20 109/70 100 04/21/17 09:09 04/21/17 09:09 04/21/17 09:09 04/21/17 09:09 04/21/17 09:09 Intake and Output: 04/21/17 04/21/17 06:59 18:59 Intake Total 1060 Balance 1060 - Medications Medications: Current Medications Diphenhydramine HCl (Benadryl) 25 mg IVP Q3 PRN PRN Reason: Pain, moderate (4-7) Last Admin: 04/21/17 15:16 Dose: 25 mg Enoxaparin Sodium (Lovenox) 40 mg SC DAILY [facility] Last Admin: 04/21/17 12:08 Dose: Not Given Folic Acid (Folic Acid) 2 mg PO DAILY [facility] Last Admin: 04/21/17 09:28 Dose: 2 mg Hydromorphone HCl (Dilaudid) 2 mg IVP Q3 PRN PRN Reason: Pain, moderate (4-7) Last Admin: 04/21/17 15:16 Dose: 2 mg Dextrose/Sodium Chloride (Dextrose 5%/0.45% Ns 1000 Ml) 1,000 mls @ 60 mls/hr IV .[id number] [facility] Last Admin: 04/21/17 06:13 Dose: Not Given Meropenem 1 gm/ Sodium (Chloride) 100 mls @ 100 mls/hr IVPB Q8 [facility] Last Admin: 04/21/17 14:23 Dose: 100 mls/hr - Labs Labs: 04/21/17 06:57 04/19/17 03:24 PT 14.6 SECONDS (9.7-12.2) H 04/19/17 02:26 INR 1.3 04/19/17 02:26 APTT 39 SECONDS (21-34) H 04/19/17 02:26 - Constitutional Appears: Well - Head Exam Head Exam: ATRAUMATIC, NORMAL INSPECTION, NORMOCEPHALIC - Eye Exam Eye Exam: EOMI, Normal appearance, PERRL Pupil Exam: NORMAL ACCOMODATION, PERRL - ENT Exam ENT Exam: Mucous Membranes Moist, Normal Exam - Neck Exam Neck Exam: Full ROM, Normal Inspection. absent: Lymphadenopathy - Respiratory Exam Respiratory Exam: Decreased Breath Sounds - Cardiovascular Exam Cardiovascular Exam: REGULAR RHYTHM, +S1, +S2 - GI/Abdominal Exam GI & Abdominal Exam: Soft, Diminished Bowel Sounds - Rectal Exam Rectal Exam: Deferred Assessment and Plan (1) Severe anemia Status: Acute (2) Sickle cell anemia with pain Status: Acute (3) Animal bite wound Status: Acute (4) Leg pain Status: Acute (5) Leukocytosis Status: Acute (6) Myalgia Status: Acute (7) Pain Status: Acute (8) Sickle cell anemia Status: Acute (9) Sickle cell pain crisis Status: Acute (10) UTI (urinary tract infection) Status: Acute
--- NOTE | 2017-04-21 21:57 | CP.PCM.PN ---
Subjective - Date & Time of Evaluation Date of Evaluation: 04/21/17 Time of Evaluation: 21:57 - Subjective Subjective: CHIEF COMPLAINTS TODAY : AFEBRILE. C/O generalized pain Less dysuria. tachycardic Seen by hematology for sickle cell crisis. and severe anemia h/h dropped to 5.8. ROS. HEENT : N. Resp : No cough, wheezing ,pleuritic CP ,or hemoptysis Cardio : No anginal CP, PND, orthopnea, palpitation GI : No abd.pain, n/v ,diarrhea or GI bleeding . RETAIL SPECIALIST : No headache, vertigo, focal deficit. Musculoskel : No joint swelling , Derm : No rash Psych : Normal affect. Ext : No swelling ,calf pain PE. Pt. is alert awake in no distress. V.S As noted in the chart Head ,ear nose,throat and eyes : Normal. Neck : Supple with normal carotids. Lungs: Clear air entry. Heart : S1 & S2 normal with S4. No murmur. Abd : Soft non tender with normal bowel sounds. Neuro : Moves all ext. with no localized deficit. Ext : No edema with intact pulses.Non tender calves Derm : No rashes or decubitus ulcer. LABS/RADIOLOGY: wbc 23.0 increasing urine culture 04/19/17 +ve GNR. ASSESSMENT. LEUKOCYTOSIS /SEPSIS ? UROSEPSIS SEVERE ANEMIA SICKLE CELL CRISIS GENERALIZED PAIN /PLAN : CONTINUE iv MERREM 1 G EVERY 8 HOURLY 04/20/17 ADD iv GENTAMICIN 130 MILLIGRAMS iv PIGGYBACK ONE DOSE 04/21/17 ANALGESICS aS PER HEMATOLOGY PATIENT FOR BLOOD TRANSFUSION. Objective - Vital Signs/Intake and Output Vital Signs (last 24 hours): Temp Pulse Resp BP Pulse Ox 97.4 F L 101 H 20 112/65 96 04/21/17 15:15 04/21/17 15:15 04/21/17 15:15 04/21/17 15:15 04/21/17 15:15 - Medications Medications: Current Medications Diphenhydramine HCl (Benadryl) 25 mg IVP Q3 PRN PRN Reason: Pain, moderate (4-7) Last Admin: 04/21/17 21:22 Dose: 25 mg Enoxaparin Sodium (Lovenox) 40 mg SC DAILY [facility] Last Admin: 04/21/17 12:08 Dose: Not Given Folic Acid (Folic Acid) 2 mg PO DAILY [facility] Last Admin: 04/21/17 09:28 Dose: 2 mg Hydromorphone HCl (Dilaudid) 2 mg IVP Q3 PRN PRN Reason: Pain, moderate (4-7) Last Admin: 04/21/17 21:23 Dose: 2 mg Dextrose/Sodium Chloride (Dextrose 5%/0.45% Ns 1000 Ml) 1,000 mls @ 60 mls/hr IV .[id number] [facility] Last Admin: 04/21/17 06:13 Dose: Not Given Meropenem 1 gm/ Sodium (Chloride) 100 mls @ 100 mls/hr IVPB Q8 [facility] Last Admin: 04/21/17 21:22 Dose: 100 mls/hr - Labs Labs: 04/21/17 06:57 04/19/17 03:24 PT 14.6 SECONDS (9.7-12.2) H 04/19/17 02:26 INR 1.3 04/19/17 02:26 APTT 39 SECONDS (21-34) H 04/19/17 02:26 Assessment and Plan (1) UTI (urinary tract infection) Status: Acute (2) Leukocytosis Status: Acute (3) Severe anemia Status: Acute (4) Sickle cell anemia with pain Status: Acute
[2017-04-21] MEDS ORDERED: SODIUM CHLORIDE 0.9% IVPB ONE (22:00)
[2017-04-21] MEDS ORDERED: GENTAMICIN IVPB ONE (22:00)
[2017-04-22] MEDS: DiphenhydrAMINE 50 mg/ml Inj IVP PRN ×8 (00:35→22:41)
[2017-04-22] MEDS: Meropenem 1 GM in Sodium Chloride 0.9% 100 ML IVPB SCH ×3 (05:00→21:07)
[2017-04-22 07:34] LABS: BASO # 0.2 K/uL (0.0-0.2); BASO % 1.1 % (0.0-2.0); EOS # 0.9 K/uL (0.0-0.7); EOS % 4.3 % (0.0-4.0); LYMPH # 4.5 K/uL (1.0-4.3); LYMPH % 21.6 % (20.0-40.0); MEAN CELL VOLUME 86.2 fL (81.0-99.0); MEAN CORPUSCULAR HEMOGLOBIN 28.4 pg (27.0-31.0); MEAN CORPUSCULAR HGB CONC 32.9 g/dL (33.0-37.0); MEAN PLATELET VOLUME 9.1 fL (7.2-11.7); MONO # 1.7 K/uL (0.0-0.8); MONO % 8.2 % (0.0-10.0); NEUT # 13.4 K/uL (1.8-7.0); NEUT % 64.8 % (50.0-75.0); NRBC % 0.5 % (0.0-2.0); RBC 1.9 Mil/uL (3.80-5.20); RED CELL DISTRIBUTION WIDTH 17.3 % (11.5-14.5); WHITE BLOOD COUNT 20.8 K/uL (4.8-10.8)
[2017-04-22 07:42] LABS: HEMOGLOBIN 5.4 g/dL (11.0-16.0)
[2017-04-22 09:24] LABS: ALB/GLOB RATIO 0.7 (1.0-2.1); ALBUMIN 3.2 g/dL (3.5-5.0); ALT/SGPT 69 U/L (9-52); AST/SGOT 78 U/L (14-36); BILIRUBIN,DIRECT 0.4 mg/dL (0.0-0.4); BLOOD UREA NITROGEN 18 mg/dL (7-17); CALCIUM 7.7 mg/dl (8.6-10.4); GFR AFRICAN-AMERICAN > 60; GFR NON-AFRICAN AMERICAN 56
[2017-04-22] MEDS: Enoxaparin 40 mg Syringe SC SCH (10:03)
--- NOTE | 2017-04-22 13:50 | CP.PCM.PN ---
Subjective - Date & Time of Evaluation Date of Evaluation: 04/22/17 Time of Evaluation: 07:50 - Subjective Subjective: clinically same Objective - Vital Signs/Intake and Output Vital Signs (last 24 hours): Temp Pulse Resp BP Pulse Ox 98.9 F 88 20 120/60 99 04/22/17 09:02 04/22/17 09:02 04/22/17 09:02 04/22/17 09:02 04/22/17 09:02 Intake and Output: 04/22/17 04/22/17 06:59 18:59 Intake Total 1630 Balance 1630 - Medications Medications: Current Medications Diphenhydramine HCl (Benadryl) 25 mg IVP Q3 PRN PRN Reason: Pain, moderate (4-7) Last Admin: 04/22/17 13:03 Dose: 25 mg Enoxaparin Sodium (Lovenox) 40 mg SC DAILY [facility] Last Admin: 04/22/17 10:03 Dose: Not Given Folic Acid (Folic Acid) 2 mg PO DAILY [facility] Last Admin: 04/22/17 10:01 Dose: 2 mg Hydromorphone HCl (Dilaudid) 2 mg IVP Q3 PRN PRN Reason: Pain, moderate (4-7) Last Admin: 04/22/17 13:03 Dose: 2 mg Dextrose/Sodium Chloride (Dextrose 5%/0.45% Ns 1000 Ml) 1,000 mls @ 60 mls/hr IV .[id number] [facility] Last Admin: 04/21/17 22:42 Dose: 60 mls/hr Meropenem 1 gm/ Sodium (Chloride) 100 mls @ 100 mls/hr IVPB Q8 [facility] Last Admin: 04/22/17 13:10 Dose: 100 mls/hr - Labs Labs: 04/22/17 07:16 04/22/17 07:16 PT 14.6 SECONDS (9.7-12.2) H 04/19/17 02:26 INR 1.3 04/19/17 02:26 APTT 39 SECONDS (21-34) H 04/19/17 02:26 - Constitutional Appears: Well - Head Exam Head Exam: ATRAUMATIC, NORMAL INSPECTION, NORMOCEPHALIC - Eye Exam Eye Exam: EOMI, Normal appearance, PERRL Pupil Exam: NORMAL ACCOMODATION, PERRL - ENT Exam ENT Exam: Mucous Membranes Moist, Normal Exam - Neck Exam Neck Exam: Full ROM, Normal Inspection. absent: Lymphadenopathy - Respiratory Exam Respiratory Exam: Decreased Breath Sounds - Cardiovascular Exam Cardiovascular Exam: REGULAR RHYTHM, +S1, +S2 - GI/Abdominal Exam GI & Abdominal Exam: Soft, Diminished Bowel Sounds - Rectal Exam Rectal Exam: Deferred Assessment and Plan (1) Severe anemia Status: Acute (2) Sickle cell anemia with pain Status: Acute (3) Animal bite wound Status: Acute (4) Leg pain Status: Acute (5) Leukocytosis Status: Acute (6) Myalgia Status: Acute (7) Pain Status: Acute (8) Sickle cell anemia Status: Acute (9) Sickle cell pain crisis Status: Acute (10) UTI (urinary tract infection) Status: Acute
--- NOTE | 2017-04-22 22:12 | CP.PCM.PN ---
Subjective - Date & Time of Evaluation Date of Evaluation: 04/22/17 Time of Evaluation: 12:30 - Subjective Subjective: Has pain in legs Objective - Vital Signs/Intake and Output Vital Signs (last 24 hours): Temp Pulse Resp BP Pulse Ox 98.4 F 101 H 20 115/66 97 04/22/17 18:34 04/22/17 18:34 04/22/17 18:34 04/22/17 18:34 04/22/17 18:34 - Medications Medications: Current Medications Diphenhydramine HCl (Benadryl) 25 mg IVP Q3 PRN PRN Reason: Pain, moderate (4-7) Last Admin: 04/22/17 19:39 Dose: 25 mg Enoxaparin Sodium (Lovenox) 40 mg SC DAILY [facility] Last Admin: 04/22/17 10:03 Dose: Not Given Folic Acid (Folic Acid) 2 mg PO DAILY [facility] Last Admin: 04/22/17 10:01 Dose: 2 mg Hydromorphone HCl (Dilaudid) 2 mg IVP Q3 PRN PRN Reason: Pain, moderate (4-7) Last Admin: 04/22/17 19:40 Dose: 2 mg Dextrose/Sodium Chloride (Dextrose 5%/0.45% Ns 1000 Ml) 1,000 mls @ 60 mls/hr IV .[id number] [facility] Last Admin: 04/21/17 22:42 Dose: 60 mls/hr Meropenem 1 gm/ Sodium (Chloride) 100 mls @ 100 mls/hr IVPB Q8 [facility] Last Admin: 04/22/17 21:07 Dose: 100 mls/hr - Labs Labs: 04/22/17 07:16 04/22/17 07:16 PT 14.6 SECONDS (9.7-12.2) H 04/19/17 02:26 INR 1.3 04/19/17 02:26 APTT 39 SECONDS (21-34) H 04/19/17 02:26 - Head Exam Head Exam: ATRAUMATIC - Eye Exam Eye Exam: Normal appearance - ENT Exam ENT Exam: Mucous Membranes Dry - Respiratory Exam Respiratory Exam: NORMAL BREATHING PATTERN - Cardiovascular Exam Cardiovascular Exam: +S1, +S2 - GI/Abdominal Exam GI & Abdominal Exam: Normal Bowel Sounds - Extremities Exam Extremities Exam: Normal Inspection Assessment and Plan (1) Sickle cell anemia with pain Assessment & Plan: IV fluids, pain meds, folic acid, 02 via NC recommend transfusion support Status: Acute (2) Leukocytosis Assessment & Plan: on antibiotics Status: Acute (3) Sickle cell anemia Assessment & Plan: outpatient folic acid Status: Acute
[2017-04-22] MEDS: Dextrose 5%/0.45% NS 1,000 ML IV SCH (22:41)
--- NOTE | 2017-04-22 23:48 | CP.PCM.PN ---
Subjective - Date & Time of Evaluation Date of Evaluation: 04/22/17 Time of Evaluation: 23:48 - Subjective Subjective: CHIEF COMPLAINTS TODAY : AFEBRILE. C/O generalized pain Less dysuria ROS. HEENT : N. Resp : No cough, wheezing ,pleuritic CP ,or hemoptysis Cardio : No anginal CP, PND, orthopnea, palpitation GI : No abd.pain, n/v ,diarrhea or GI bleeding . PIGGYBACK CLERK : No headache, vertigo, focal deficit. Musculoskel : No joint swelling , Derm : No rash Psych : Normal affect. Ext : No swelling ,calf pain PE. Pt. is alert awake in no distress. V.S As noted in the chart Head ,ear nose,throat and eyes : Normal. Neck : Supple with normal carotids. Lungs: Clear air entry. Heart : S1 & S2 normal with S4. No murmur. Abd : Soft non tender with normal bowel sounds. Neuro : Moves all ext. with no localized deficit. Ext : No edema with intact pulses.Non tender calves Derm : No rashes or decubitus ulcer. LABS/RADIOLOGY: wbc 20.8 H/H 5.4 RETIC 6.3 urine culture 04/19/17 +ve GNR.-P IDENTIFICATION ASSESSMENT. LEUKOCYTOSIS /SEPSIS ? UROSEPSIS SEVERE ANEMIA SICKLE CELL CRISIS GENERALIZED PAIN /PLAN : CONTINUE iv MERREM 1 G EVERY 8 HOURLY 04/20/17 GOT iv GENTAMICIN 130 MILLIGRAMS iv PIGGYBACK ONE DOSE 04/21/17 F/U CULTURES TO ADJUST ABX. 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 Objective - Vital Signs/Intake and Output Vital Signs (last 24 hours): Temp Pulse Resp BP Pulse Ox 98.4 F 101 H 20 115/66 97 04/22/17 18:34 04/22/17 18:34 04/22/17 18:34 04/22/17 18:34 04/22/17 18:34 Intake and Output: 04/22/17 04/23/17 18:59 06:59 Intake Total 770 Balance 770 - Medications Medications: Current Medications Diphenhydramine HCl (Benadryl) 25 mg IVP Q3 PRN PRN Reason: Pain, moderate (4-7) Last Admin: 04/22/17 22:41 Dose: 25 mg Enoxaparin Sodium (Lovenox) 40 mg SC DAILY [facility] Last Admin: 04/22/17 10:03 Dose: Not Given Folic Acid (Folic Acid) 2 mg PO DAILY [facility] Last Admin: 04/22/17 10:01 Dose: 2 mg Hydromorphone HCl (Dilaudid) 2 mg IVP Q3 PRN PRN Reason: Pain, moderate (4-7) Last Admin: 04/22/17 22:42 Dose: 2 mg Dextrose/Sodium Chloride (Dextrose 5%/0.45% Ns 1000 Ml) 1,000 mls @ 60 mls/hr IV .[id number] [facility] Last Admin: 04/22/17 22:41 Dose: 60 mls/hr Meropenem 1 gm/ Sodium (Chloride) 100 mls @ 100 mls/hr IVPB Q8 [facility] Last Admin: 04/22/17 21:07 Dose: 100 mls/hr - Labs Labs: 04/22/17 07:16 04/22/17 07:16 PT 14.6 SECONDS (9.7-12.2) H 04/19/17 02:26 INR 1.3 04/19/17 02:26 APTT 39 SECONDS (21-34) H 04/19/17 02:26 Assessment and Plan (1) UTI (urinary tract infection) Status: Acute (2) Leukocytosis Status: Acute (3) Severe anemia Status: Acute (4) Sickle cell anemia with pain Status: Acute
[2017-04-23] MEDS: DiphenhydrAMINE 50 mg/ml Inj IVP PRN ×8 (01:40→23:50)
[2017-04-23] MEDS: Meropenem 1 GM in Sodium Chloride 0.9% 100 ML IVPB SCH ×3 (04:59→21:01)
[2017-04-23 08:04] LABS: BASO # 0.3 K/uL (0.0-0.2); BASO % 1.2 % (0.0-2.0); EOS # 1.3 K/uL (0.0-0.7); LYMPH # 5.1 K/uL (1.0-4.3); LYMPH % 23.5 % (20.0-40.0); MEAN CORPUSCULAR HEMOGLOBIN 29.6 pg (27.0-31.0); MEAN CORPUSCULAR HGB CONC 34.4 g/dL (33.0-37.0); MEAN PLATELET VOLUME 9.1 fL (7.2-11.7); MONO # 1.7 K/uL (0.0-0.8); MONO % 7.6 % (0.0-10.0); NEUT # 13.4 K/uL (1.8-7.0); NEUT % 61.7 % (50.0-75.0); NRBC % 0.3 % (0.0-2.0); RBC 1.91 Mil/uL (3.80-5.20); RED CELL DISTRIBUTION WIDTH 17.2 % (11.5-14.5); WHITE BLOOD COUNT 21.7 K/uL (4.8-10.8)
[2017-04-23 08:13] LABS: ALB/GLOB RATIO 0.7 (1.0-2.1); ALBUMIN 3.6 g/dL (3.5-5.0); ALT/SGPT 62 U/L (9-52); AST/SGOT 80 U/L (14-36); BLOOD UREA NITROGEN 19 mg/dL (7-17); CALCIUM 7.9 mg/dl (8.6-10.4); GFR AFRICAN-AMERICAN > 60; GFR NON-AFRICAN AMERICAN 50
[2017-04-23 08:15] LABS: HEMOGLOBIN 5.7 g/dL (11.0-16.0)
[2017-04-23] MEDS: Dextrose 5%/0.45% NS 1,000 ML IV SCH ×2 (08:43→23:50)
[2017-04-23] MEDS: Enoxaparin 40 mg Syringe SC SCH (09:44)
--- NOTE | 2017-04-23 12:40 | CP.PCM.PN ---
Subjective - Date & Time of Evaluation Date of Evaluation: 04/23/17 Time of Evaluation: 12:40 - Subjective Subjective: CHIEF COMPLAINTS TODAY : AFEBRILE. C/O generalized pain Less dysuria ROS. HEENT : N. Resp : No cough, wheezing ,pleuritic CP ,or hemoptysis Cardio : No anginal CP, PND, orthopnea, palpitation GI : No abd.pain, n/v ,diarrhea or GI bleeding . 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 Musculoskel : No joint swelling , Derm : No rash Psych : Normal affect. Ext : No swelling ,calf pain PE. Pt. is alert awake in no distress. V.S As noted in the chart Head ,ear nose,throat and eyes : Normal. Neck : Supple with normal carotids. Lungs: Clear air entry. Heart : S1 & S2 normal with S4. No murmur. Abd : Soft non tender with normal bowel sounds. Neuro : Moves all ext. with no localized deficit. Ext : No edema with intact pulses.Non tender calves Derm : No rashes or decubitus ulcer. LABS/RADIOLOGY: wbc 20.8 H/H 5.4 RETIC 6.3 urine culture 04/19/17 +veESBL positive Escherichia coli s-2 Merrem and gentamicin. ASSESSMENT. LEUKOCYTOSIS /SEPSIS ? UROSEPSIS SEVERE ANEMIA SICKLE CELL CRISIS GENERALIZED PAIN /PLAN : CONTINUE iv MERREM 1 G EVERY 8 HOURLY 04/20/17 GOT iv GENTAMICIN 130 MILLIGRAMS iv PIGGYBACK ONE DOSE 04/21/17 add iv gentamicin 80 mg IV piggyback to 24 hourly 2 doses for synergy 04/23/17, 04/24/17. F/U RENAL FUNCTION CLOSELY. 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 Objective - Vital Signs/Intake and Output Vital Signs (last 24 hours): Temp Pulse Resp BP Pulse Ox 98.4 F 110 H 22 117/74 97 04/23/17 08:00 04/23/17 08:00 04/23/17 08:00 04/23/17 08:00 04/23/17 08:00 Intake and Output: 04/23/17 04/23/17 06:59 18:59 Intake Total 1850 Balance 1850 - Medications Medications: Current Medications Diphenhydramine HCl (Benadryl) 25 mg IVP Q3 PRN PRN Reason: Pain, moderate (4-7) Last Admin: 04/23/17 11:40 Dose: 25 mg Enoxaparin Sodium (Lovenox) 40 mg SC DAILY [facility] Last Admin: 04/23/17 09:44 Dose: Not Given Folic Acid (Folic Acid) 2 mg PO DAILY [facility] Last Admin: 04/23/17 09:44 Dose: 2 mg Hydromorphone HCl (Dilaudid) 2 mg IVP Q3 PRN PRN Reason: Pain, moderate (4-7) Last Admin: 04/23/17 11:40 Dose: 2 mg Dextrose/Sodium Chloride (Dextrose 5%/0.45% Ns 1000 Ml) 1,000 mls @ 60 mls/hr IV .[id number] [facility] Last Admin: 04/23/17 08:43 Dose: Not Given Meropenem 1 gm/ Sodium (Chloride) 100 mls @ 100 mls/hr IVPB Q8 [facility] Last Admin: 04/23/17 04:59 Dose: 100 mls/hr Gentamicin Sulfate 80 mg/ (Sodium Chloride) 102 mls @ 100 mls/hr IVPB Q24H [facility] Stop: 04/24/17 14:32 - Labs Labs: 04/23/17 07:47 04/23/17 07:47 PT 14.6 SECONDS (9.7-12.2) H 04/19/17 02:26 INR 1.3 04/19/17 02:26 APTT 39 SECONDS (21-34) H 04/19/17 02:26 Assessment and Plan (1) UTI (urinary tract infection) Status: Acute (2) Leukocytosis Status: Acute (3) Severe anemia Status: Acute (4) Sickle cell anemia with pain Status: Acute
--- NOTE | 2017-04-23 16:41 | CP.PCM.PN ---
Subjective - Date & Time of Evaluation Date of Evaluation: 04/23/17 Time of Evaluation: 07:20 - Subjective Subjective: clinically same Objective - Vital Signs/Intake and Output Vital Signs (last 24 hours): Temp Pulse Resp BP Pulse Ox 98.4 F 110 H 22 117/74 97 04/23/17 08:00 04/23/17 08:00 04/23/17 08:00 04/23/17 08:00 04/23/17 08:00 Intake and Output: 04/23/17 04/23/17 06:59 18:59 Intake Total 1850 1240 Balance 1850 1240 - Medications Medications: Current Medications Diphenhydramine HCl (Benadryl) 25 mg IVP Q3 PRN PRN Reason: Pain, moderate (4-7) Last Admin: 04/23/17 14:40 Dose: 25 mg Enoxaparin Sodium (Lovenox) 40 mg SC DAILY [facility] Last Admin: 04/23/17 09:44 Dose: Not Given Folic Acid (Folic Acid) 2 mg PO DAILY [facility] Last Admin: 04/23/17 09:44 Dose: 2 mg Hydromorphone HCl (Dilaudid) 2 mg IVP Q3 PRN PRN Reason: Pain, moderate (4-7) Last Admin: 04/23/17 14:40 Dose: 2 mg Dextrose/Sodium Chloride (Dextrose 5%/0.45% Ns 1000 Ml) 1,000 mls @ 60 mls/hr IV .[id number] [facility] Last Admin: 04/23/17 08:43 Dose: Not Given Meropenem 1 gm/ Sodium (Chloride) 100 mls @ 100 mls/hr IVPB Q8 [facility] Last Admin: 04/23/17 13:53 Dose: 100 mls/hr Gentamicin Sulfate 80 mg/ (Sodium Chloride) 102 mls @ 100 mls/hr IVPB Q24H [facility] Stop: 04/24/17 14:32 Last Admin: 04/23/17 13:56 Dose: 100 mls/hr - Labs Labs: 04/23/17 07:47 04/23/17 07:47 PT 14.6 SECONDS (9.7-12.2) H 04/19/17 02:26 INR 1.3 04/19/17 02:26 APTT 39 SECONDS (21-34) H 04/19/17 02:26 - Constitutional Appears: Well - Head Exam Head Exam: ATRAUMATIC, NORMAL INSPECTION, NORMOCEPHALIC - Eye Exam Eye Exam: EOMI, Normal appearance, PERRL Pupil Exam: NORMAL ACCOMODATION, PERRL - ENT Exam ENT Exam: Mucous Membranes Moist, Normal Exam - Neck Exam Neck Exam: Full ROM, Normal Inspection. absent: Lymphadenopathy - Respiratory Exam Respiratory Exam: Decreased Breath Sounds - Cardiovascular Exam Cardiovascular Exam: REGULAR RHYTHM, +S1, +S2 - GI/Abdominal Exam GI & Abdominal Exam: Soft, Diminished Bowel Sounds - Rectal Exam Rectal Exam: Deferred Assessment and Plan (1) Severe anemia Status: Acute (2) Sickle cell anemia with pain Status: Acute (3) Animal bite wound Status: Acute (4) Leg pain Status: Acute (5) Leukocytosis Status: Acute (6) Myalgia Status: Acute (7) Pain Status: Acute (8) Sickle cell anemia Status: Acute (9) Sickle cell pain crisis Status: Acute (10) UTI (urinary tract infection) Status: Acute
--- NOTE | 2017-04-23 21:12 | CP.PCM.PN ---
Subjective - Date & Time of Evaluation Date of Evaluation: 04/23/17 Time of Evaluation: 13:00 - Subjective Subjective: Has pain. Objective - Vital Signs/Intake and Output Vital Signs (last 24 hours): Temp Pulse Resp BP Pulse Ox 98.1 F 105 H 20 107/73 99 04/23/17 16:00 04/23/17 16:00 04/23/17 16:00 04/23/17 16:00 04/23/17 16:00 Intake and Output: 04/23/17 04/24/17 18:59 06:59 Intake Total 1240 Balance 1240 - Medications Medications: Current Medications Diphenhydramine HCl (Benadryl) 25 mg IVP Q3 PRN PRN Reason: Pain, moderate (4-7) Last Admin: 04/23/17 20:57 Dose: 25 mg Enoxaparin Sodium (Lovenox) 40 mg SC DAILY [facility] Last Admin: 04/23/17 09:44 Dose: Not Given Folic Acid (Folic Acid) 2 mg PO DAILY [facility] Last Admin: 04/23/17 09:44 Dose: 2 mg Hydromorphone HCl (Dilaudid) 2 mg IVP Q3 PRN PRN Reason: Pain, moderate (4-7) Last Admin: 04/23/17 20:57 Dose: 2 mg Dextrose/Sodium Chloride (Dextrose 5%/0.45% Ns 1000 Ml) 1,000 mls @ 60 mls/hr IV .[id number] [facility] Last Admin: 04/23/17 08:43 Dose: Not Given Meropenem 1 gm/ Sodium (Chloride) 100 mls @ 100 mls/hr IVPB Q8 [facility] Last Admin: 04/23/17 21:01 Dose: 100 mls/hr Gentamicin Sulfate 80 mg/ (Sodium Chloride) 102 mls @ 100 mls/hr IVPB Q24H [facility] Stop: 04/24/17 14:32 Last Admin: 04/23/17 13:56 Dose: 100 mls/hr - Labs Labs: 04/23/17 07:47 04/23/17 07:47 PT 14.6 SECONDS (9.7-12.2) H 04/19/17 02:26 INR 1.3 04/19/17 02:26 APTT 39 SECONDS (21-34) H 04/19/17 02:26 - Head Exam Head Exam: ATRAUMATIC - Eye Exam Eye Exam: Normal appearance - ENT Exam ENT Exam: Mucous Membranes Dry - Respiratory Exam Respiratory Exam: NORMAL BREATHING PATTERN - Cardiovascular Exam Cardiovascular Exam: +S1, +S2 - GI/Abdominal Exam GI & Abdominal Exam: Normal Bowel Sounds Assessment and Plan (1) Sickle cell anemia with pain Assessment & Plan: IV fluids, pain meds, folic acid, 02 via NC Status: Acute (2) Leukocytosis Assessment & Plan: on antibiotics likely reactive component from sickle cell Status: Acute (3) Sickle cell anemia Assessment & Plan: folic acid Status: Acute
[2017-04-24] MEDS: DiphenhydrAMINE 50 mg/ml Inj IVP PRN ×7 (03:09→23:06)
[2017-04-24] MEDS: Meropenem 1 GM in Sodium Chloride 0.9% 100 ML IVPB SCH ×3 (05:56→21:38)
[2017-04-24] MEDS: Enoxaparin 40 mg Syringe SC SCH (09:35)
[2017-04-24] MEDS: HYDROmorphone 1 mg/ml ISec IVP PRN ×5 (09:36→23:07)
[2017-04-24 14:08] LABS: BASO # 0.2 K/uL (0.0-0.2); EOS # 1.4 K/uL (0.0-0.7); EOS % 5.9 % (0.0-4.0); LYMPH # 6.1 K/uL (1.0-4.3); LYMPH % 24.9 % (20.0-40.0); MEAN CORPUSCULAR HEMOGLOBIN 28.6 pg (27.0-31.0); MEAN CORPUSCULAR HGB CONC 33.3 g/dL (33.0-37.0); MEAN PLATELET VOLUME 9.3 fL (7.2-11.7); MONO % 8.2 % (0.0-10.0); NEUT # 14.6 K/uL (1.8-7.0); NRBC % 0.5 % (0.0-2.0); RBC 1.91 Mil/uL (3.80-5.20); RED CELL DISTRIBUTION WIDTH 17.5 % (11.5-14.5); WHITE BLOOD COUNT 24.3 K/uL (4.8-10.8)
[2017-04-24 14:11] LABS: HEMOGLOBIN 5.5 g/dL (11.0-16.0)
--- NOTE | 2017-04-24 18:59 | CP.PCM.PN ---
Subjective - Date & Time of Evaluation Date of Evaluation: 04/24/17 Time of Evaluation: 07:20 - Subjective Subjective: clinically same Objective - Vital Signs/Intake and Output Vital Signs (last 24 hours): Temp Pulse Resp BP Pulse Ox 98.0 F 108 H 20 110/75 99 04/24/17 16:46 04/24/17 16:46 04/24/17 16:46 04/24/17 16:46 04/24/17 16:46 Intake and Output: 04/24/17 04/24/17 06:59 18:59 Intake Total 1400 650 Balance 1400 650 - Medications Medications: Current Medications Diphenhydramine HCl (Benadryl) 25 mg IVP Q3 PRN PRN Reason: Pain, moderate (4-7) Last Admin: 04/24/17 15:58 Dose: 25 mg Enoxaparin Sodium (Lovenox) 40 mg SC DAILY [facility] Last Admin: 04/24/17 09:35 Dose: Not Given Folic Acid (Folic Acid) 2 mg PO DAILY [facility] Last Admin: 04/24/17 09:35 Dose: 2 mg Hydromorphone HCl (Dilaudid) 2 mg IVP Q3 PRN PRN Reason: Pain, moderate (4-7) Last Admin: 04/24/17 15:59 Dose: 2 mg Dextrose/Sodium Chloride (Dextrose 5%/0.45% Ns 1000 Ml) 1,000 mls @ 60 mls/hr IV .[id number] [facility] Last Admin: 04/23/17 23:50 Dose: 60 mls/hr Meropenem 1 gm/ Sodium (Chloride) 100 mls @ 100 mls/hr IVPB Q8 [facility] Last Admin: 04/24/17 15:18 Dose: 100 mls/hr - Labs Labs: 04/24/17 13:56 04/23/17 07:47 PT 14.6 SECONDS (9.7-12.2) H 04/19/17 02:26 INR 1.3 04/19/17 02:26 APTT 39 SECONDS (21-34) H 04/19/17 02:26 Assessment and Plan (1) Severe anemia Status: Acute (2) Sickle cell anemia with pain Status: Acute (3) Animal bite wound Status: Acute (4) Leg pain Status: Acute (5) Leukocytosis Status: Acute (6) Myalgia Status: Acute (7) Pain Status: Acute (8) Sickle cell anemia Status: Acute (9) Sickle cell pain crisis Status: Acute (10) UTI (urinary tract infection) Status: Acute - Assessment and Plan (Free Text) Plan: Continue IV pain medications Continue meropenem Continue ID consult Monitor hemoglobin hematocrit Follow-up with the hematology We will transfuse the patient if the hemoglobin goes below 5 Monitor the WBC
[2017-04-24] MEDS: Dextrose 5%/0.45% NS 1,000 ML IV SCH (20:10)
--- NOTE | 2017-04-24 20:19 | CP.PCM.PN ---
Subjective - Date & Time of Evaluation Date of Evaluation: 04/24/17 Time of Evaluation: 19:00 - Subjective Subjective: Has back pain. Objective - Vital Signs/Intake and Output Vital Signs (last 24 hours): Temp Pulse Resp BP Pulse Ox 98.0 F 108 H 20 110/75 99 04/24/17 16:46 04/24/17 16:46 04/24/17 16:46 04/24/17 16:46 04/24/17 16:46 Intake and Output: 04/24/17 04/25/17 18:59 06:59 Intake Total 650 Balance 650 - Medications Medications: Current Medications Diphenhydramine HCl (Benadryl) 25 mg IVP Q3 PRN PRN Reason: Pain, moderate (4-7) Last Admin: 04/24/17 20:06 Dose: 25 mg Enoxaparin Sodium (Lovenox) 40 mg SC DAILY [facility] Last Admin: 04/24/17 09:35 Dose: Not Given Folic Acid (Folic Acid) 2 mg PO DAILY [facility] Last Admin: 04/24/17 09:35 Dose: 2 mg Hydromorphone HCl (Dilaudid) 2 mg IVP Q3 PRN PRN Reason: Pain, moderate (4-7) Last Admin: 04/24/17 20:07 Dose: 2 mg Dextrose/Sodium Chloride (Dextrose 5%/0.45% Ns 1000 Ml) 1,000 mls @ 60 mls/hr IV .[id number] [facility] Last Admin: 04/24/17 20:10 Dose: Not Given Meropenem 1 gm/ Sodium (Chloride) 100 mls @ 100 mls/hr IVPB Q8 [facility] Last Admin: 04/24/17 15:18 Dose: 100 mls/hr - Labs Labs: 04/24/17 13:56 04/23/17 07:47 PT 14.6 SECONDS (9.7-12.2) H 04/19/17 02:26 INR 1.3 04/19/17 02:26 APTT 39 SECONDS (21-34) H 04/19/17 02:26 - Head Exam Head Exam: ATRAUMATIC - Eye Exam Eye Exam: Normal appearance - ENT Exam ENT Exam: Mucous Membranes Dry - Respiratory Exam Respiratory Exam: NORMAL BREATHING PATTERN - Cardiovascular Exam Cardiovascular Exam: +S1, +S2 - GI/Abdominal Exam GI & Abdominal Exam: Normal Bowel Sounds Assessment and Plan (1) Sickle cell anemia with pain Assessment & Plan: IV fluids, pain meds, folic acid, 02 via NC recommend PRBC transfusion Status: Acute (2) Leukocytosis Assessment & Plan: on antibiotics likely reactive component to sickle cell Status: Acute (3) Sickle cell anemia Assessment & Plan: folic acid Status: Acute
--- NOTE | 2017-04-24 23:32 | CP.PCM.PN ---
Subjective - Date & Time of Evaluation Date of Evaluation: 04/24/17 Time of Evaluation: 23:32 - Subjective Subjective: CHIEF COMPLAINTS TODAY : AFEBRILE. C/O BACK PAIN ROS. HEENT : N. Resp : No cough, wheezing ,pleuritic CP ,or hemoptysis Cardio : No anginal CP, PND, orthopnea, palpitation GI : No abd.pain, n/v ,diarrhea or GI bleeding . 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 Musculoskel : No joint swelling , Derm : No rash Psych : Normal affect. Ext : No swelling ,calf pain PE. Pt. is alert awake in no distress. V.S As noted in the chart Head ,ear nose,throat and eyes : Normal. Neck : Supple with normal carotids. Lungs: Clear air entry. Heart : S1 & S2 normal with S4. No murmur. Abd : Soft non tender with normal bowel sounds. Neuro : Moves all ext. with no localized deficit. Ext : No edema with intact pulses.Non tender calves Derm : No rashes or decubitus ulcer. LABS/RADIOLOGY: REVIEWED LEUKOCYTOSIS urine culture 04/19/17 +veESBL positive Escherichia coli s-2 Merrem and gentamicin. ASSESSMENT. LEUKOCYTOSIS /SEPSIS UROSEPSIS/REACTIVE SEVERE ANEMIA SICKLE CELL CRISIS GENERALIZED PAIN /PLAN : CONTINUE iv MERREM 1 G EVERY 8 HOURLY 04/20/17 GOT iv GENTAMICIN 130 MILLIGRAMS iv PIGGYBACK ONE DOSE 04/21/17 add iv gentamicin 80 mg IV piggyback to 24 hourly 2 doses for synergy 04/23/17, 04/24/17. F/U RENAL FUNCTION CLOSELY. 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 Objective - Vital Signs/Intake and Output Vital Signs (last 24 hours): Temp Pulse Resp BP Pulse Ox 98.0 F 108 H 20 110/75 99 04/24/17 16:46 04/24/17 16:46 04/24/17 16:46 04/24/17 16:46 04/24/17 16:46 Intake and Output: 04/24/17 04/25/17 18:59 06:59 Intake Total 650 920 Balance 650 920 - Medications Medications: Current Medications Diphenhydramine HCl (Benadryl) 25 mg IVP Q3 PRN PRN Reason: Pain, moderate (4-7) Last Admin: 03/03/18 23:06 Dose: 25 mg Enoxaparin Sodium (Lovenox) 40 mg SC DAILY [facility] Last Admin: 04/24/17 09:35 Dose: Not Given Folic Acid (Folic Acid) 2 mg PO DAILY [facility] Last Admin: 04/24/17 09:35 Dose: 2 mg Hydromorphone HCl (Dilaudid) 2 mg IVP Q3 PRN PRN Reason: Pain, moderate (4-7) Last Admin: 04/24/17 23:07 Dose: 2 mg Dextrose/Sodium Chloride (Dextrose 5%/0.45% Ns 1000 Ml) 1,000 mls @ 60 mls/hr IV .[id number] [facility] Last Admin: 04/24/17 20:10 Dose: Not Given Meropenem 1 gm/ Sodium (Chloride) 100 mls @ 100 mls/hr IVPB Q8 [facility] Last Admin: 04/24/17 21:38 Dose: 100 mls/hr - Labs Labs: 04/24/17 13:56 04/23/17 07:47 PT 14.6 SECONDS (9.7-12.2) H 04/19/17 02:26 INR 1.3 04/19/17 02:26 APTT 39 SECONDS (21-34) H 04/19/17 02:26 Assessment and Plan (1) UTI (urinary tract infection) Status: Acute (2) Leukocytosis Status: Acute (3) Severe anemia Status: Acute (4) Sickle cell anemia with pain Status: Acute
[2017-04-25] MEDS: HYDROmorphone 1 mg/ml ISec IVP PRN ×2 (02:02→05:16)
[2017-04-25] MEDS: DiphenhydrAMINE 50 mg/ml Inj IVP PRN ×7 (02:03→21:05)
[2017-04-25] MEDS: Meropenem 1 GM in Sodium Chloride 0.9% 100 ML IVPB SCH ×3 (05:16→21:07)
[2017-04-25] MEDS: Dextrose 5%/0.45% NS 1,000 ML IV SCH ×2 (05:16→10:03)
[2017-04-25 09:45] LABS: SQUAMOUS EPITHIAL 1 /hpf (0-5); URINE BACTERIA FEW (<OCC); URINE BILIRUBIN NEGATIVE (NEGATIVE); URINE BLOOD 2+ (NEGATIVE); URINE CLARITY Hazy (Clear); URINE COLOR Yellow (YELLOW); URINE GLUCOSE (UA) NORMAL (Normal); URINE LEUKOCYTE ESTERASE 3+ Leu/uL (Negative); URINE PROTEIN 1+ mg/dL (NEGATIVE); WBC CLUMPS FEW /hpf
[2017-04-25] MEDS: Enoxaparin 40 mg Syringe SC SCH (10:04)
[2017-04-25 14:16] LABS: BASO # 0.2 K/uL (0.0-0.2); BASO % 0.9 % (0.0-2.0); EOS # 1.7 K/uL (0.0-0.7); EOS % 6.8 % (0.0-4.0); LYMPH # 5.4 K/uL (1.0-4.3); MEAN CORPUSCULAR HEMOGLOBIN 29.5 pg (27.0-31.0); MEAN CORPUSCULAR HGB CONC 34.3 g/dL (33.0-37.0); MEAN PLATELET VOLUME 9.1 fL (7.2-11.7); MONO # 2.1 K/uL (0.0-0.8); MONO % 8.6 % (0.0-10.0); NEUT # 15.2 K/uL (1.8-7.0); NEUT % 61.7 % (50.0-75.0); NRBC % 0.5 % (0.0-2.0); RBC 1.83 Mil/uL (3.80-5.20); RED CELL DISTRIBUTION WIDTH 17.2 % (11.5-14.5); WHITE BLOOD COUNT 24.7 K/uL (4.8-10.8)
[2017-04-25 14:22] LABS: HEMOGLOBIN 5.4 g/dL (11.0-16.0)
--- NOTE | 2017-04-25 15:46 | CP.PCM.PN ---
Subjective - Date & Time of Evaluation Date of Evaluation: 04/25/17 Time of Evaluation: 07:20 - Subjective Subjective: clinically same Objective - Vital Signs/Intake and Output Vital Signs (last 24 hours): Temp Pulse Resp BP Pulse Ox 98.7 F 106 H 20 113/67 100 04/25/17 08:00 04/25/17 08:00 04/25/17 08:00 04/25/17 08:00 04/25/17 08:00 Intake and Output: 04/25/17 04/25/17 06:59 18:59 Intake Total 1740 550 Balance 1740 550 - Medications Medications: Current Medications Diphenhydramine HCl (Benadryl) 25 mg IVP Q3 PRN PRN Reason: Pain, moderate (4-7) Last Admin: 04/25/17 14:44 Dose: 25 mg Enoxaparin Sodium (Lovenox) 40 mg SC DAILY [facility] Last Admin: 04/25/17 10:04 Dose: Not Given Folic Acid (Folic Acid) 2 mg PO DAILY [facility] Last Admin: 04/25/17 10:03 Dose: 2 mg Hydromorphone HCl (Dilaudid) 2 mg IVP Q3 PRN PRN Reason: Pain, moderate (4-7) Last Admin: 04/25/17 14:44 Dose: 2 mg Dextrose/Sodium Chloride (Dextrose 5%/0.45% Ns 1000 Ml) 1,000 mls @ 60 mls/hr IV .[id number] [facility] Last Admin: 04/25/17 10:03 Dose: Not Given Meropenem 1 gm/ Sodium (Chloride) 100 mls @ 100 mls/hr IVPB Q8 [facility] Last Admin: 04/25/17 14:43 Dose: 100 mls/hr - Labs Labs: 04/25/17 14:08 04/23/17 07:47 PT 14.6 SECONDS (9.7-12.2) H 04/19/17 02:26 INR 1.3 04/19/17 02:26 APTT 39 SECONDS (21-34) H 04/19/17 02:26 - Constitutional Appears: Well - Head Exam Head Exam: ATRAUMATIC, NORMAL INSPECTION, NORMOCEPHALIC - Eye Exam Eye Exam: EOMI, Normal appearance, PERRL Pupil Exam: NORMAL ACCOMODATION, PERRL - ENT Exam ENT Exam: Mucous Membranes Moist, Normal Exam - Neck Exam Neck Exam: Full ROM, Normal Inspection. absent: Lymphadenopathy - Respiratory Exam Respiratory Exam: Decreased Breath Sounds - Cardiovascular Exam Cardiovascular Exam: REGULAR RHYTHM, +S1, +S2 - GI/Abdominal Exam GI & Abdominal Exam: Soft, Diminished Bowel Sounds - Rectal Exam Rectal Exam: Deferred Assessment and Plan (1) Severe anemia Status: Acute (2) Sickle cell anemia with pain Status: Acute (3) Animal bite wound Status: Acute (4) Leg pain Status: Acute (5) Leukocytosis Status: Acute (6) Myalgia Status: Acute (7) Pain Status: Acute (8) Sickle cell anemia Status: Acute (9) Sickle cell pain crisis Status: Acute (10) UTI (urinary tract infection) Status: Acute - Assessment and Plan (Free Text) Plan: Follow-up with the CBC We will transfuse if hemoglobin goes below 5 Continue meropenem Continue pain medications diluted every 3 and Benadryl to 3 Follow-up with the Heme/onc Follow-up with ID
--- NOTE | 2017-04-25 22:53 | CP.PCM.PN ---
Subjective - Date & Time of Evaluation Date of Evaluation: 04/25/17 Time of Evaluation: 20:15 - Subjective Subjective: Has back pain Objective - Vital Signs/Intake and Output Vital Signs (last 24 hours): Temp Pulse Resp BP Pulse Ox 98.0 F 111 H 20 112/72 95 04/25/17 15:44 04/25/17 15:44 04/25/17 15:44 04/25/17 15:44 04/25/17 15:44 Intake and Output: 04/25/17 04/26/17 18:59 06:59 Intake Total 550 Balance 550 - Medications Medications: Current Medications Diphenhydramine HCl (Benadryl) 25 mg IVP Q3 PRN PRN Reason: Pain, moderate (4-7) Last Admin: 04/25/17 21:05 Dose: 25 mg Enoxaparin Sodium (Lovenox) 40 mg SC DAILY [facility] Last Admin: 04/25/17 10:04 Dose: Not Given Folic Acid (Folic Acid) 2 mg PO DAILY [facility] Last Admin: 04/25/17 10:03 Dose: 2 mg Hydromorphone HCl (Dilaudid) 2 mg IVP Q3 PRN PRN Reason: Pain, moderate (4-7) Last Admin: 04/25/17 21:06 Dose: 2 mg Dextrose/Sodium Chloride (Dextrose 5%/0.45% Ns 1000 Ml) 1,000 mls @ 60 mls/hr IV .[id number] [facility] Last Admin: 04/25/17 10:03 Dose: Not Given Meropenem 1 gm/ Sodium (Chloride) 100 mls @ 100 mls/hr IVPB Q8 [facility] Last Admin: 04/25/17 21:07 Dose: 100 mls/hr - Labs Labs: 04/25/17 14:08 04/23/17 07:47 PT 14.6 SECONDS (9.7-12.2) H 04/19/17 02:26 INR 1.3 04/19/17 02:26 APTT 39 SECONDS (21-34) H 04/19/17 02:26 - Head Exam Head Exam: ATRAUMATIC - Eye Exam Eye Exam: Normal appearance - ENT Exam ENT Exam: Mucous Membranes Dry - Respiratory Exam Respiratory Exam: NORMAL BREATHING PATTERN - Cardiovascular Exam Cardiovascular Exam: +S1, +S2 - GI/Abdominal Exam GI & Abdominal Exam: Normal Bowel Sounds Assessment and Plan (1) Sickle cell anemia with pain Assessment & Plan: IV fluids, 02 via NC, folic acid, pain meds recommend transfusion support Status: Acute (2) Leukocytosis Assessment & Plan: on antibiotics reactive component from sickle cell Status: Acute (3) Sickle cell anemia Assessment & Plan: folic acid Status: Acute
[2017-04-26] MEDS: DiphenhydrAMINE 50 mg/ml Inj IVP PRN ×8 (00:15→21:30)
[2017-04-26] MEDS: Dextrose 5%/0.45% NS 1,000 ML IV SCH ×2 (03:20→19:32)
[2017-04-26] MEDS: Meropenem 1 GM in Sodium Chloride 0.9% 100 ML IVPB SCH ×3 (05:23→21:27)
[2017-04-26 06:43] LABS: BASO # 0.2 K/uL (0.0-0.2); BASO % 0.9 % (0.0-2.0); EOS # 1.4 K/uL (0.0-0.7); EOS % 5.9 % (0.0-4.0); LYMPH # 6.4 K/uL (1.0-4.3); LYMPH % 26.2 % (20.0-40.0); MEAN CELL VOLUME 87.5 fL (81.0-99.0); MEAN CORPUSCULAR HEMOGLOBIN 29.1 pg (27.0-31.0); MEAN CORPUSCULAR HGB CONC 33.2 g/dL (33.0-37.0); MEAN PLATELET VOLUME 8.8 fL (7.2-11.7); MONO # 1.9 K/uL (0.0-0.8); MONO % 7.8 % (0.0-10.0); NEUT # 14.4 K/uL (1.8-7.0); NEUT % 59.2 % (50.0-75.0); NRBC % 0.6 % (0.0-2.0); RBC 1.64 Mil/uL (3.80-5.20); RED CELL DISTRIBUTION WIDTH 17.8 % (11.5-14.5); WHITE BLOOD COUNT 24.4 K/uL (4.8-10.8)
[2017-04-26 07:08] LABS: HEMOGLOBIN 4.8 g/dL (11.0-16.0)
[2017-04-26] MEDS: Enoxaparin 40 mg Syringe SC SCH (09:23)
--- NOTE | 2017-04-26 13:09 | CP.PCM.PN ---
<Alexis Zazueta - Last Filed: 04/26/17 13:10> Subjective - Date & Time of Evaluation Date of Evaluation: 04/26/17 Time of Evaluation: 13:00 - Subjective Subjective: Progress note. Attending: Dr. Dontae Hernandez. Pt seen and examined at bedside. No acute distress. Pt is tachycardic and significant anemia. Will type and crossmatch, transfuse 1 unit. Sending pt to telemetry. Objective - Vital Signs/Intake and Output Vital Signs (last 24 hours): Temp Pulse Resp BP Pulse Ox 98.6 F 126 H 22 122/74 98 04/26/17 12:45 04/26/17 12:45 04/26/17 12:45 04/26/17 12:45 04/26/17 08:38 Intake and Output: 04/26/17 04/26/17 06:59 18:59 Intake Total 1020 0 Balance 1020 0 - Medications Medications: Current Medications Diphenhydramine HCl (Benadryl) 25 mg IVP Q3 PRN PRN Reason: Pain, moderate (4-7) Last Admin: 04/26/17 12:17 Dose: 25 mg Enoxaparin Sodium (Lovenox) 40 mg SC DAILY [facility] Last Admin: 04/26/17 09:23 Dose: Not Given Folic Acid (Folic Acid) 2 mg PO DAILY [facility] Last Admin: 04/26/17 09:20 Dose: 2 mg Hydromorphone HCl (Dilaudid) 2 mg IVP Q3 PRN PRN Reason: Pain, moderate (4-7) Last Admin: 04/26/17 12:19 Dose: 2 mg Dextrose/Sodium Chloride (Dextrose 5%/0.45% Ns 1000 Ml) 1,000 mls @ 60 mls/hr IV .[id number] [facility] Last Admin: 04/26/17 03:20 Dose: 60 mls/hr Meropenem 1 gm/ Sodium (Chloride) 100 mls @ 100 mls/hr IVPB Q8 [facility] Last Admin: 04/26/17 05:23 Dose: 100 mls/hr - Labs Labs: 04/26/17 06:34 04/23/17 07:47 PT 14.6 SECONDS (9.7-12.2) H 04/19/17 02:26 INR 1.3 04/19/17 02:26 APTT 39 SECONDS (21-34) H 04/19/17 02:26 - Constitutional Appears: Chronically Ill - Head Exam Head Exam: ATRAUMATIC, NORMAL INSPECTION, NORMOCEPHALIC - Eye Exam Eye Exam: EOMI - ENT Exam ENT Exam: Mucous Membranes Moist - Neck Exam Neck Exam: Full ROM, Normal Inspection - Respiratory Exam Respiratory Exam: NORMAL BREATHING PATTERN. absent: Respiratory Distress - Cardiovascular Exam Cardiovascular Exam: Tachycardia, +S1, +S2 - GI/Abdominal Exam GI & Abdominal Exam: Soft, Normal Bowel Sounds. absent: Tenderness - Extremities Exam Extremities Exam: Full ROM, Normal Inspection - Back Exam Back Exam: NORMAL INSPECTION - Neurological Exam Neurological Exam: Alert, Awake, CN II-XII Intact, Oriented x3 - Psychiatric Exam Psychiatric exam: Normal Affect, Normal Mood - Skin Skin Exam: Dry, Intact, Normal Color, Warm Assessment and Plan - Assessment and Plan (Free Text) Assessment: This is a 36 yo female with 1. Sickle cell anemia -continue D5 / NS 60 cc/hr -folic acid daily -dilaudid 2 IV q 3 hrs prn. -lovenox 40 daily -transfusions as necessary -today HGB below 5 -will type and cross match -transfuse 1 unit -recheck cbc afterwards -as pt is at risk for ischemia, will transfer to tele 2. Tachycardia -cardiology consult. Dr. Galvez. recs appreciated. -transfer to telemetry. 3. Urinary tract infecton -urine culture 04/19 grew E. Coli -ua shows 3 plus LE -meropenem 1 g IV q 8 hrs. -ID consult. Dr. Ruth Jones. recs appreciated. 4. leukocytosis -likely secondary to UTI 5. GI/DVT ppx -lovenox 40 daily -protonix daily discussed with Dr. Hernandez. <Rosalina Hernandez - Last Filed: 04/28/17 09:21> Objective - Vital Signs/Intake and Output Vital Signs (last 24 hours): Temp Pulse Resp BP Pulse Ox 97.9 F 88 20 113/73 97 04/28/17 08:14 04/28/17 08:14 04/28/17 08:14 04/28/17 08:14 04/28/17 08:14 Intake and Output: 04/28/17 04/28/17 06:59 18:59 Intake Total 600 Balance 600 - Medications Medications: Current Medications Diphenhydramine HCl (Benadryl) 25 mg IVP Q3 PRN PRN Reason: Pain, moderate (4-7) Last Admin: 04/28/17 09:07 Dose: 25 mg Enoxaparin Sodium (Lovenox) 40 mg SC DAILY [facility] Last Admin: 04/28/17 09:14 Dose: Not Given Folic Acid (Folic Acid) 2 mg PO DAILY [facility] Last Admin: 04/28/17 09:05 Dose: 2 mg Hydromorphone HCl (Dilaudid) 2 mg IVP Q3 PRN PRN Reason: Pain, moderate (4-7) Last Admin: 04/28/17 09:08 Dose: 2 mg Dextrose/Sodium Chloride (Dextrose 5%/0.45% Ns 1000 Ml) 1,000 mls @ 60 mls/hr IV .[id number] [facility] Last Admin: 04/26/17 19:32 Dose: Not Given Meropenem 1 gm/ Sodium (Chloride) 100 mls @ 100 mls/hr IVPB Q8 [facility] Last Admin: 04/28/17 06:22 Dose: 100 mls/hr Pantoprazole Sodium (Protonix Inj) 40 mg IVP DAILY [facility] Last Admin: 04/28/17 09:06 Dose: 40 mg - Labs Labs: 04/28/17 06:50 04/28/17 06:50 PT 14.6 SECONDS (9.7-12.2) H 04/19/17 02:26 INR 1.3 04/19/17 02:26 APTT 39 SECONDS (21-34) H 04/19/17 02:26 Assessment and Plan (1) Severe anemia Status: Acute (2) Sickle cell anemia with pain Status: Acute (3) Animal bite wound Status: Acute (4) Leg pain Status: Acute (5) Leukocytosis Status: Acute (6) Myalgia Status: Acute (7) Pain Status: Acute (8) Sickle cell anemia Status: Acute (9) Sickle cell pain crisis Status: Acute (10) UTI (urinary tract infection) Status: Acute - Assessment and Plan (Free Text) Plan: Discussed instituting with the staff patient on IV antibiotic pain medicine follow-up as needed with Dr. MASTERSON and cardiology discussed with the staff Attending/Attestation - Attestation I have personally seen and examined this patient.: Yes I have fully participated in the care of the patient.: Yes I have reviewed all pertinent clinical information, including history, physical exam and plan: Yes
[2017-04-26 16:14] VITALS: RESP 20
--- NOTE | 2017-04-26 19:32 | CP.PCM.PN ---
Subjective - Date & Time of Evaluation Date of Evaluation: 04/26/17 Time of Evaluation: 08:50 Objective - Vital Signs/Intake and Output Vital Signs (last 24 hours): Temp Pulse Resp BP Pulse Ox 97.8 F 105 H 20 112/74 98 04/26/17 16:12 04/26/17 16:12 04/26/17 16:12 04/26/17 16:12 04/26/17 16:00 Intake and Output: 04/26/17 04/27/17 18:59 06:59 Intake Total 1565 Balance 1565 - Medications Medications: Current Medications Diphenhydramine HCl (Benadryl) 25 mg IVP Q3 PRN PRN Reason: Pain, moderate (4-7) Last Admin: 04/26/17 18:30 Dose: 25 mg Enoxaparin Sodium (Lovenox) 40 mg SC DAILY [facility] Last Admin: 04/26/17 09:23 Dose: Not Given Folic Acid (Folic Acid) 2 mg PO DAILY [facility] Last Admin: 04/26/17 09:20 Dose: 2 mg Hydromorphone HCl (Dilaudid) 2 mg IVP Q3 PRN PRN Reason: Pain, moderate (4-7) Last Admin: 04/26/17 18:30 Dose: 2 mg Dextrose/Sodium Chloride (Dextrose 5%/0.45% Ns 1000 Ml) 1,000 mls @ 60 mls/hr IV .[id number] [facility] Last Admin: 04/26/17 03:20 Dose: 60 mls/hr Meropenem 1 gm/ Sodium (Chloride) 100 mls @ 100 mls/hr IVPB Q8 [facility] Last Admin: 04/26/17 16:09 Dose: 100 mls/hr Pantoprazole Sodium (Protonix Inj) 40 mg IVP DAILY [facility] - Labs Labs: 04/26/17 06:34 04/23/17 07:47 PT 14.6 SECONDS (9.7-12.2) H 04/19/17 02:26 INR 1.3 04/19/17 02:26 APTT 39 SECONDS (21-34) H 04/19/17 02:26 Assessment and Plan (1) Severe anemia Status: Acute (2) Sickle cell anemia with pain Status: Acute (3) Animal bite wound Status: Acute (4) Leg pain Status: Acute (5) Leukocytosis Status: Acute (6) Myalgia Status: Acute (7) Pain Status: Acute (8) Sickle cell anemia Status: Acute (9) Sickle cell pain crisis Status: Acute (10) UTI (urinary tract infection) Status: Acute - Assessment and Plan (Free Text) Plan: . Sickle cell anemia -continue D5 1/2 NS 60 cc/hr -folic acid daily -dilaudid 2 IV q 3 hrs prn. -lovenox 40 daily -transfusions as necessary -today HGB below 5 -will type and cross match -transfuse 1 unit -recheck cbc afterwards -as pt is at risk for ischemia, will transfer to tele 2. Tachycardia -cardiology consult. Dr. Galvez. recs appreciated. -transfer to telemetry. 3. Urinary tract infecton -urine culture 04/19 grew E. Coli -ua shows 3 plus LE -meropenem 1 g IV q 8 hrs. -ID consult. Dr. Ruth Jones. recs appreciated. 4. leukocytosis -likely secondary to UTI 5. GI/DVT ppx -lovenox 40 daily -protonix daily
--- NOTE | 2017-04-26 21:32 | CP.PCM.PN ---
Subjective - Date & Time of Evaluation Date of Evaluation: 04/26/17 Time of Evaluation: 19:00 - Subjective Subjective: Feeling better after PRBC transfusion Objective - Vital Signs/Intake and Output Vital Signs (last 24 hours): Temp Pulse Resp BP Pulse Ox 97.8 F 105 H 20 112/74 98 04/26/17 16:12 04/26/17 16:12 04/26/17 16:12 04/26/17 16:12 04/26/17 16:00 Intake and Output: 04/26/17 04/27/17 18:59 06:59 Intake Total 1565 Balance 1565 - Medications Medications: Current Medications Diphenhydramine HCl (Benadryl) 25 mg IVP Q3 PRN PRN Reason: Pain, moderate (4-7) Last Admin: 04/26/17 18:30 Dose: 25 mg Enoxaparin Sodium (Lovenox) 40 mg SC DAILY [facility] Last Admin: 04/26/17 09:23 Dose: Not Given Folic Acid (Folic Acid) 2 mg PO DAILY [facility] Last Admin: 04/26/17 09:20 Dose: 2 mg Hydromorphone HCl (Dilaudid) 2 mg IVP Q3 PRN PRN Reason: Pain, moderate (4-7) Last Admin: 04/26/17 18:30 Dose: 2 mg Dextrose/Sodium Chloride (Dextrose 5%/0.45% Ns 1000 Ml) 1,000 mls @ 60 mls/hr IV .[id number] [facility] Last Admin: 04/26/17 03:20 Dose: 60 mls/hr Meropenem 1 gm/ Sodium (Chloride) 100 mls @ 100 mls/hr IVPB Q8 [facility] Last Admin: 04/26/17 21:27 Dose: 100 mls/hr Pantoprazole Sodium (Protonix Inj) 40 mg IVP DAILY [facility] - Labs Labs: 04/26/17 06:34 04/23/17 07:47 PT 14.6 SECONDS (9.7-12.2) H 04/19/17 02:26 INR 1.3 04/19/17 02:26 APTT 39 SECONDS (21-34) H 04/19/17 02:26 - Head Exam Head Exam: ATRAUMATIC - Eye Exam Eye Exam: Normal appearance - ENT Exam ENT Exam: Mucous Membranes Dry - Respiratory Exam Respiratory Exam: NORMAL BREATHING PATTERN - Cardiovascular Exam Cardiovascular Exam: +S1, +S2 - GI/Abdominal Exam GI & Abdominal Exam: Normal Bowel Sounds Assessment and Plan (1) Sickle cell anemia with pain Assessment & Plan: IV fluids, pain meds, folic acid, 02 via NC s/p transfusion support Status: Acute (2) Leukocytosis Assessment & Plan: on antibiotics reactive component from sickle cell Status: Acute (3) Sickle cell anemia Assessment & Plan: folic acid Status: Acute
--- NOTE | 2017-04-26 23:59 | CP.PCM.PN ---
Subjective - Date & Time of Evaluation Date of Evaluation: 04/26/17 Time of Evaluation: 23:59 - Subjective Subjective: CHIEF COMPLAINTS TODAY : AFEBRILE. C/O BACK PAIN S/P PRBC TRANSFUSION ROS. HEENT : N. Resp : No cough, wheezing ,pleuritic CP ,or hemoptysis Cardio : No anginal CP, PND, orthopnea, palpitation GI : No abd.pain, n/v ,diarrhea or GI bleeding . N[employer] : No headache, vertigo, focal deficit. Musculoskel : No joint swelling , Derm : No rash Psych : Normal affect. Ext : No swelling ,calf pain PE. Pt. is alert awake in no distress. V.S As noted in the chart Head ,ear nose,throat and eyes : Normal. Neck : Supple with normal carotids. Lungs: Clear air entry. Heart : S1 & S2 normal with S4. No murmur. Abd : Soft non tender with normal bowel sounds. Neuro : Moves all ext. with no localized deficit. Ext : No edema with intact pulses.Non tender calves Derm : No rashes or decubitus ulcer. LABS/RADIOLOGY: REVIEWED LEUKOCYTOSIS H/H 4.8 urine culture 04/19/17 +veESBL positive Escherichia coli -S Merrem and gentamicin. ASSESSMENT. LEUKOCYTOSIS /SEPSIS UROSEPSIS/ REACTIVE SEVERE ANEMIA SICKLE CELL CRISIS GENERALIZED PAIN /PLAN : CONTINUE iv MERREM 1 G EVERY 8 HOURLY 04/20/17 GOT iv GENTAMICIN 130 MILLIGRAMS iv PIGGYBACK ONE DOSE 04/21/17 GOT iv gentamicin 80 mg IV piggyback to 24 hourly 2 doses for synergy 04/23/17 , 04/24/17. F/U RENAL FUNCTION CLOSELY. ANALGESICS aS PER HEMATOLOGY PRBC TRANSFUSION. Objective - Vital Signs/Intake and Output Vital Signs (last 24 hours): Temp Pulse Resp BP Pulse Ox 97.8 F 105 H 20 112/74 98 04/26/17 16:12 04/26/17 16:12 04/26/17 16:12 04/26/17 16:12 04/26/17 16:00 Intake and Output: 04/26/17 04/27/17 18:59 06:59 Intake Total 1565 1200 Balance 1565 1200 - Medications Medications: Current Medications Diphenhydramine HCl (Benadryl) 25 mg IVP Q3 PRN PRN Reason: Pain, moderate (4-7) Last Admin: 04/26/17 21:30 Dose: 25 mg Enoxaparin Sodium (Lovenox) 40 mg SC DAILY [facility] Last Admin: 04/26/17 09:23 Dose: Not Given Folic Acid (Folic Acid) 2 mg PO DAILY [facility] Last Admin: 04/26/17 09:20 Dose: 2 mg Hydromorphone HCl (Dilaudid) 2 mg IVP Q3 PRN PRN Reason: Pain, moderate (4-7) Last Admin: 04/26/17 21:30 Dose: 2 mg Dextrose/Sodium Chloride (Dextrose 5%/0.45% Ns 1000 Ml) 1,000 mls @ 60 mls/hr IV .[id number] [facility] Last Admin: 04/26/17 19:32 Dose: Not Given Meropenem 1 gm/ Sodium (Chloride) 100 mls @ 100 mls/hr IVPB Q8 [facility] Last Admin: 04/26/17 21:27 Dose: 100 mls/hr Pantoprazole Sodium (Protonix Inj) 40 mg IVP DAILY [facility] - Labs Labs: 04/26/17 06:34 04/23/17 07:47 PT 14.6 SECONDS (9.7-12.2) H 04/19/17 02:26 INR 1.3 04/19/17 02:26 APTT 39 SECONDS (21-34) H 04/19/17 02:26 Assessment and Plan (1) UTI (urinary tract infection) Status: Acute (2) Leukocytosis Status: Acute (3) Severe anemia Status: Acute (4) Sickle cell anemia with pain Status: Acute
[2017-04-27] MEDS: DiphenhydrAMINE 50 mg/ml Inj IVP PRN ×7 (00:30→20:55)
[2017-04-27] MEDS: Meropenem 1 GM in Sodium Chloride 0.9% 100 ML IVPB SCH ×3 (05:53→21:01)
[2017-04-27 07:26] LABS: BASO # 0.3 K/uL (0.0-0.2); BASO % 1.3 % (0.0-2.0); EOS # 1.5 K/uL (0.0-0.7); EOS % 6.8 % (0.0-4.0); LYMPH # 5.6 K/uL (1.0-4.3); LYMPH % 24.4 % (20.0-40.0); MEAN CELL VOLUME 86.3 fL (81.0-99.0); MEAN CORPUSCULAR HEMOGLOBIN 29.9 pg (27.0-31.0); MEAN CORPUSCULAR HGB CONC 34.6 g/dL (33.0-37.0); MEAN PLATELET VOLUME 9.1 fL (7.2-11.7); MONO # 1.8 K/uL (0.0-0.8); MONO % 7.7 % (0.0-10.0); NEUT # 13.7 K/uL (1.8-7.0); NEUT % 59.8 % (50.0-75.0); NRBC % 0.9 % (0.0-2.0); RBC 2.34 Mil/uL (3.80-5.20); RED CELL DISTRIBUTION WIDTH 16.7 % (11.5-14.5); WHITE BLOOD COUNT 22.9 K/uL (4.8-10.8)
[2017-04-27 07:43] LABS: ALB/GLOB RATIO 0.7 (1.0-2.1); ALBUMIN 3.4 g/dL (3.5-5.0); ALT/SGPT 52 U/L (9-52); AST/SGOT 94 U/L (14-36); BLOOD UREA NITROGEN 20 mg/dL (7-17); CALCIUM 8.3 mg/dl (8.6-10.4); GFR AFRICAN-AMERICAN > 60; GFR NON-AFRICAN AMERICAN > 60
--- NOTE | 2017-04-27 11:37 | CP.PCM.PN ---
<Alexis Zazueta - Last Filed: 04/27/17 11:37> Subjective - Date & Time of Evaluation Date of Evaluation: 04/27/17 Time of Evaluation: 11:35 - Subjective Subjective: PROGRESS NOTE. Attending: Dontae Hernandez Pt seen and examined at bedside. No acute distress. No fevers, chills, vomiting diarrhea. Pt feels generally unwell. HGB improved, will continue to monitor. Objective - Vital Signs/Intake and Output Vital Signs (last 24 hours): Temp Pulse Resp BP Pulse Ox 98.1 F 82 20 116/71 100 04/27/17 08:02 04/27/17 08:02 04/27/17 08:02 04/27/17 08:02 04/27/17 08:02 Intake and Output: 04/27/17 04/27/17 06:59 18:59 Intake Total 1200 840 Balance 1200 840 - Medications Medications: Current Medications Diphenhydramine HCl (Benadryl) 25 mg IVP Q3 PRN PRN Reason: Pain, moderate (4-7) Last Admin: 04/27/17 10:43 Dose: 25 mg Enoxaparin Sodium (Lovenox) 40 mg SC DAILY [facility] Last Admin: 04/26/17 09:23 Dose: Not Given Folic Acid (Folic Acid) 2 mg PO DAILY [facility] Last Admin: 04/27/17 09:57 Dose: 2 mg Hydromorphone HCl (Dilaudid) 2 mg IVP Q3 PRN PRN Reason: Pain, moderate (4-7) Last Admin: 04/27/17 10:44 Dose: 2 mg Dextrose/Sodium Chloride (Dextrose 5%/0.45% Ns 1000 Ml) 1,000 mls @ 60 mls/hr IV .[id number] [facility] Last Admin: 04/26/17 19:32 Dose: Not Given Meropenem 1 gm/ Sodium (Chloride) 100 mls @ 100 mls/hr IVPB Q8 [facility] Last Admin: 04/27/17 05:53 Dose: 100 mls/hr Pantoprazole Sodium (Protonix Inj) 40 mg IVP DAILY [facility] - Labs Labs: 04/27/17 07:08 04/27/17 07:08 PT 14.6 SECONDS (9.7-12.2) H 04/19/17 02:26 INR 1.3 04/19/17 02:26 APTT 39 SECONDS (21-34) H 04/19/17 02:26 - Constitutional Appears: Chronically Ill - Head Exam Head Exam: ATRAUMATIC, NORMAL INSPECTION, NORMOCEPHALIC - Eye Exam Eye Exam: EOMI - ENT Exam ENT Exam: Mucous Membranes Moist - Neck Exam Neck Exam: Full ROM, Normal Inspection - Respiratory Exam Respiratory Exam: NORMAL BREATHING PATTERN. absent: Respiratory Distress - Cardiovascular Exam Cardiovascular Exam: +S1, +S2 - GI/Abdominal Exam GI & Abdominal Exam: Soft, Normal Bowel Sounds. absent: Tenderness - Extremities Exam Extremities Exam: Full ROM, Normal Inspection - Neurological Exam Neurological Exam: Alert, Awake, Oriented x3 - Psychiatric Exam Psychiatric exam: Normal Affect, Normal Mood - Skin Skin Exam: Dry, Intact, Normal Color, Warm Assessment and Plan - Assessment and Plan (Free Text) Assessment: This is a 36 yo female with 1. Sickle cell anemia -continue D5 02/23 NS 60 cc/hr -folic acid daily -dilaudid 2 IV q 3 hrs prn. -lovenox 40 daily -transfusions as necessary -HGB improved today to 7 -will continue to monitor -as pt is at risk for ischemia, will transfer to tele 2. Tachycardia -cardiology consult. Dr. Galvez. recs appreciated. -transfer to telemetry. 3. Urinary tract infecton -urine culture 04/19 grew E. Coli -ua shows 3 plus LE -meropenem 1 g IV q 8 hrs. -ID consult. Dr. Ruth Jones. recs appreciated. 4. leukocytosis -likely secondary to UTI 5. GI/DVT ppx -lovenox 40 daily -protonix daily discussed with Dr. Hernandez. <Rosalina Hernandez S - Last Filed: 04/27/17 19:03> Objective - Vital Signs/Intake and Output Vital Signs (last 24 hours): Temp Pulse Resp BP Pulse Ox 98.2 F 96 H 20 113/65 97 04/27/17 15:46 04/27/17 15:46 04/27/17 15:46 04/27/17 15:46 04/27/17 15:46 Intake and Output: 04/27/17 04/28/17 18:59 06:59 Intake Total 1760 Balance 1760 - Medications Medications: Current Medications Diphenhydramine HCl (Benadryl) 25 mg IVP Q3 PRN PRN Reason: Pain, moderate (4-7) Last Admin: 04/27/17 17:05 Dose: 25 mg Enoxaparin Sodium (Lovenox) 40 mg SC DAILY [facility] Last Admin: 04/27/17 13:48 Dose: Not Given Folic Acid (Folic Acid) 2 mg PO DAILY [facility] Last Admin: 04/27/17 09:57 Dose: 2 mg Hydromorphone HCl (Dilaudid) 2 mg IVP Q3 PRN PRN Reason: Pain, moderate (4-7) Last Admin: 04/27/17 17:05 Dose: 2 mg Dextrose/Sodium Chloride (Dextrose 5%/0.45% Ns 1000 Ml) 1,000 mls @ 60 mls/hr IV .[id number] [facility] Last Admin: 04/26/17 19:32 Dose: Not Given Meropenem 1 gm/ Sodium (Chloride) 100 mls @ 100 mls/hr IVPB Q8 [facility] Last Admin: 04/27/17 13:47 Dose: 100 mls/hr Pantoprazole Sodium (Protonix Inj) 40 mg IVP DAILY [facility] - Labs Labs: 04/27/17 07:08 04/27/17 07:08 PT 14.6 SECONDS (9.7-12.2) H 04/19/17 02:26 INR 1.3 04/19/17 02:26 APTT 39 SECONDS (21-34) H 04/19/17 02:26 Assessment and Plan (1) Severe anemia Status: Acute (2) Sickle cell anemia with pain Status: Acute (3) Animal bite wound Status: Acute (4) Leg pain Status: Acute (5) Leukocytosis Status: Acute (6) Myalgia Status: Acute (7) Pain Status: Acute (8) Sickle cell anemia Status: Acute (9) Sickle cell pain crisis Status: Acute (10) UTI (urinary tract infection) Status: Acute - Assessment and Plan (Free Text) Plan: . Sickle cell anemia -continue D5 1/2 NS 60 cc/hr -folic acid daily -dilaudid 2 IV q 3 hrs prn. -lovenox 40 daily -transfusions as necessary -HGB improved today to 7 -will continue to monitor -as pt is at risk for ischemia, will transfer to tele 2. Tachycardia -cardiology consult. Dr. Galvez. recs appreciated. -transfer to telemetry. 3. Urinary tract infecton -urine culture 04/19 grew E. Coli -ua shows 3 plus LE -meropenem 1 g IV q 8 hrs. -ID consult. Dr. Ruth Jones. recs appreciated. 4. leukocytosis -likely secondary to UTI
[2017-04-27] MEDS: Enoxaparin 40 mg Syringe SC SCH (13:48)
--- NOTE | 2017-04-27 19:07 | CP.PCM.PN ---
Subjective - Date & Time of Evaluation Date of Evaluation: 04/27/17 Time of Evaluation: 06:30 - Subjective Subjective: for discharge tomorrow am Objective - Vital Signs/Intake and Output Vital Signs (last 24 hours): Temp Pulse Resp BP Pulse Ox 98.2 F 96 H 20 113/65 97 04/27/17 15:46 04/27/17 15:46 04/27/17 15:46 04/27/17 15:46 04/27/17 15:46 Intake and Output: 04/27/17 04/28/17 18:59 06:59 Intake Total 1760 Balance 1760 - Medications Medications: Current Medications Diphenhydramine HCl (Benadryl) 25 mg IVP Q3 PRN PRN Reason: Pain, moderate (4-7) Last Admin: 04/27/17 17:05 Dose: 25 mg Enoxaparin Sodium (Lovenox) 40 mg SC DAILY [facility] Last Admin: 04/27/17 13:48 Dose: Not Given Folic Acid (Folic Acid) 2 mg PO DAILY [facility] Last Admin: 04/27/17 09:57 Dose: 2 mg Hydromorphone HCl (Dilaudid) 2 mg IVP Q3 PRN PRN Reason: Pain, moderate (4-7) Last Admin: 04/27/17 17:05 Dose: 2 mg Dextrose/Sodium Chloride (Dextrose 5%/0.45% Ns 1000 Ml) 1,000 mls @ 60 mls/hr IV .[id number] [facility] Last Admin: 04/26/17 19:32 Dose: Not Given Meropenem 1 gm/ Sodium (Chloride) 100 mls @ 100 mls/hr IVPB Q8 [facility] Last Admin: 04/27/17 13:47 Dose: 100 mls/hr Pantoprazole Sodium (Protonix Inj) 40 mg IVP DAILY [facility] - Labs Labs: 04/27/17 07:08 04/27/17 07:08 PT 14.6 SECONDS (9.7-12.2) H 04/19/17 02:26 INR 1.3 04/19/17 02:26 APTT 39 SECONDS (21-34) H 04/19/17 02:26 Assessment and Plan (1) Severe anemia Status: Acute (2) Sickle cell anemia with pain Status: Acute (3) Animal bite wound Status: Acute (4) Leg pain Status: Acute (5) Leukocytosis Status: Acute (6) Myalgia Status: Acute (7) Pain Status: Acute (8) Sickle cell anemia Status: Acute (9) Sickle cell pain crisis Status: Acute (10) UTI (urinary tract infection) Status: Acute - Assessment and Plan (Free Text) Plan: . Sickle cell anemia -continue D5 1/2 NS 60 cc/hr -folic acid daily -dilaudid 2 IV q 3 hrs prn. -lovenox 40 daily -transfusions as necessary -HGB improved today to 7 -will continue to monitor -as pt is at risk for ischemia, will transfer to tele 2. Tachycardia -cardiology consult. Dr. Galvez. recs appreciated. -transfer to telemetry. 3. Urinary tract infecton -urine culture 04/19 grew E. Coli -ua shows 3 plus LE -meropenem 1 g IV q 8 hrs. -ID consult. Dr. Ruth Jones. recs appreciated. 4. leukocytosis -likely secondary to UTI
--- NOTE | 2017-04-27 22:36 | CP.PCM.PN ---
Subjective - Date & Time of Evaluation Date of Evaluation: 04/27/17 Time of Evaluation: 22:36 - Subjective Subjective: CHIEF COMPLAINTS TODAY : AFEBRILE. FEELING BETTER H/H IMPROVED S/P BLOOD TRANSFUSION. HGB 7.0/HEMATOCRIT 20.2 ROS. HEENT : N. Resp : No cough, wheezing ,pleuritic CP ,or hemoptysis Cardio : No anginal CP, PND, orthopnea, palpitation GI : No abd.pain, n/v ,diarrhea or GI bleeding . ASSOCIATE : No headache, vertigo, focal deficit. Musculoskel : No joint swelling , Derm : No rash Psych : Normal affect. Ext : No swelling ,calf pain PE. Pt. is alert awake in no distress. V.S As noted in the chart Head ,ear nose,throat and eyes : Normal. Neck : Supple with normal carotids. Lungs: Clear air entry. Heart : S1 & S2 normal with S4. No murmur. Abd : Soft non tender with normal bowel sounds. Neuro : Moves all ext. with no localized deficit. Ext : No edema with intact pulses.Non tender calves Derm : No rashes or decubitus ulcer. LABS/RADIOLOGY: REVIEWED wbc 22.1 H/H 4.8--> 7.0 CREAT 1.0/BUN 20 urine culture 04/19/17 +veESBL positive Escherichia coli -S Merrem and gentamicin. ASSESSMENT. LEUKOCYTOSIS /SEPSIS UROSEPSIS/ REACTIVE SEVERE ANEMIA SICKLE CELL CRISIS GENERALIZED PAIN /PLAN : REPEAT ua AND URINE CULTURE CLEAN CATCH 04/28/17 CONTINUE iv MERREM 1 G EVERY 8 HOURLY 04/20/17-DAY8 GOT iv GENTAMICIN 130 MILLIGRAMS iv PIGGYBACK ONE DOSE 04/21/17 GOT iv gentamicin 80 mg IV piggyback to 24 hourly 2 doses for synergy 04/23/17 , 04/24/17. F/U RENAL FUNCTION CLOSELY. 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 Objective - Vital Signs/Intake and Output Vital Signs (last 24 hours): Temp Pulse Resp BP Pulse Ox 98.2 F 96 H 20 113/65 97 04/27/17 15:46 04/27/17 15:46 04/27/17 15:46 04/27/17 15:46 04/27/17 15:46 Intake and Output: 04/27/17 04/28/17 18:59 06:59 Intake Total 1760 Balance 1760 - Medications Medications: Current Medications Diphenhydramine HCl (Benadryl) 25 mg IVP Q3 PRN PRN Reason: Pain, moderate (4-7) Last Admin: 04/27/17 20:55 Dose: 25 mg Enoxaparin Sodium (Lovenox) 40 mg SC DAILY [facility] Last Admin: 04/27/17 13:48 Dose: Not Given Folic Acid (Folic Acid) 2 mg PO DAILY [facility] Last Admin: 04/27/17 09:57 Dose: 2 mg Hydromorphone HCl (Dilaudid) 2 mg IVP Q3 PRN PRN Reason: Pain, moderate (4-7) Last Admin: 04/27/17 20:55 Dose: 2 mg Dextrose/Sodium Chloride (Dextrose 5%/0.45% Ns 1000 Ml) 1,000 mls @ 60 mls/hr IV .[id number] [facility] Last Admin: 04/26/17 19:32 Dose: Not Given Meropenem 1 gm/ Sodium (Chloride) 100 mls @ 100 mls/hr IVPB Q8 [facility] Last Admin: 04/27/17 21:01 Dose: 100 mls/hr Pantoprazole Sodium (Protonix Inj) 40 mg IVP DAILY [facility] - Labs Labs: 04/27/17 07:08 04/27/17 07:08 PT 14.6 SECONDS (9.7-12.2) H 04/19/17 02:26 INR 1.3 04/19/17 02:26 APTT 39 SECONDS (21-34) H 04/19/17 02:26 Assessment and Plan (1) UTI (urinary tract infection) Status: Acute (2) Leukocytosis Status: Acute (3) Severe anemia Status: Acute (4) Sickle cell anemia with pain Status: Acute
--- NOTE | 2017-04-27 22:53 | CP.PCM.PN ---
Subjective - Date & Time of Evaluation Date of Evaluation: 04/27/17 Time of Evaluation: 19:10 - Subjective Subjective: Feeling better Objective - Vital Signs/Intake and Output Vital Signs (last 24 hours): Temp Pulse Resp BP Pulse Ox 98.2 F 96 H 20 113/65 97 04/27/17 15:46 04/27/17 15:46 04/27/17 15:46 04/27/17 15:46 04/27/17 15:46 Intake and Output: 04/27/17 04/28/17 18:59 06:59 Intake Total 1760 Balance 1760 - Medications Medications: Current Medications Diphenhydramine HCl (Benadryl) 25 mg IVP Q3 PRN PRN Reason: Pain, moderate (4-7) Last Admin: 04/27/17 20:55 Dose: 25 mg Enoxaparin Sodium (Lovenox) 40 mg SC DAILY [facility] Last Admin: 04/27/17 13:48 Dose: Not Given Folic Acid (Folic Acid) 2 mg PO DAILY [facility] Last Admin: 04/27/17 09:57 Dose: 2 mg Hydromorphone HCl (Dilaudid) 2 mg IVP Q3 PRN PRN Reason: Pain, moderate (4-7) Last Admin: 04/27/17 20:55 Dose: 2 mg Dextrose/Sodium Chloride (Dextrose 5%/0.45% Ns 1000 Ml) 1,000 mls @ 60 mls/hr IV .[id number] [facility] Last Admin: 04/26/17 19:32 Dose: Not Given Meropenem 1 gm/ Sodium (Chloride) 100 mls @ 100 mls/hr IVPB Q8 [facility] Last Admin: 04/27/17 21:01 Dose: 100 mls/hr Pantoprazole Sodium (Protonix Inj) 40 mg IVP DAILY [facility] - Labs Labs: 04/27/17 07:08 04/27/17 07:08 PT 14.6 SECONDS (9.7-12.2) H 04/19/17 02:26 INR 1.3 04/19/17 02:26 APTT 39 SECONDS (21-34) H 04/19/17 02:26 - Head Exam Head Exam: ATRAUMATIC - Eye Exam Eye Exam: Normal appearance - ENT Exam ENT Exam: Mucous Membranes Dry - Respiratory Exam Respiratory Exam: NORMAL BREATHING PATTERN - Cardiovascular Exam Cardiovascular Exam: +S1, +S2 - GI/Abdominal Exam GI & Abdominal Exam: Normal Bowel Sounds Assessment and Plan (1) Sickle cell anemia with pain Assessment & Plan: IV fluids, pain meds, folic acid, 02 via NC s/p PRBC transfusion Status: Acute (2) Leukocytosis Assessment & Plan: on antibiotics reactive component from sickle cell Status: Acute (3) Sickle cell anemia Assessment & Plan: folic acid Status: Acute
[2017-04-28] MEDS: DiphenhydrAMINE 50 mg/ml Inj IVP PRN ×8 (00:05→21:10)
[2017-04-28] MEDS: Meropenem 1 GM in Sodium Chloride 0.9% 100 ML IVPB SCH ×3 (06:22→21:11)
[2017-04-28 07:06] LABS: BASO # 0.3 K/uL (0.0-0.2); BASO % 1.4 % (0.0-2.0); EOS # 1.5 K/uL (0.0-0.7); EOS % 6.8 % (0.0-4.0); HEMOGLOBIN 7.3 g/dL (11.0-16.0); LYMPH # 5.2 K/uL (1.0-4.3); LYMPH % 23.4 % (20.0-40.0); MEAN CORPUSCULAR HEMOGLOBIN 29.8 pg (27.0-31.0); MEAN CORPUSCULAR HGB CONC 34.2 g/dL (33.0-37.0); MEAN PLATELET VOLUME 8.5 fL (7.2-11.7); MONO % 9.1 % (0.0-10.0); NEUT # 13.1 K/uL (1.8-7.0); NEUT % 59.3 % (50.0-75.0); NRBC % 0.3 % (0.0-2.0); RBC 2.44 Mil/uL (3.80-5.20); RED CELL DISTRIBUTION WIDTH 17.3 % (11.5-14.5); WHITE BLOOD COUNT 22.1 K/uL (4.8-10.8)
[2017-04-28 07:53] LABS: ALB/GLOB RATIO 0.7 (1.0-2.1); ALBUMIN 3.5 g/dL (3.5-5.0); ALT/SGPT 56 U/L (9-52); AST/SGOT 99 U/L (14-36); BLOOD UREA NITROGEN 22 mg/dL (7-17); CALCIUM 8.3 mg/dl (8.6-10.4); GFR AFRICAN-AMERICAN > 60; GFR NON-AFRICAN AMERICAN > 60
[2017-04-28 07:55] LABS: SQUAMOUS EPITHIAL < 1 /hpf (0-5); URINE BACTERIA RARE (<OCC); URINE BILIRUBIN NEGATIVE (NEGATIVE); URINE BLOOD 2+ (NEGATIVE); URINE CLARITY Hazy (Clear); URINE COLOR Yellow (YELLOW); URINE GLUCOSE (UA) NORMAL (Normal); URINE LEUKOCYTE ESTERASE 3+ Leu/uL (Negative); URINE PROTEIN 1+ mg/dL (NEGATIVE); URINE UROBILINOGEN NORMAL mg/dL (0.2-1.0)
[2017-04-28] MEDS: Enoxaparin 40 mg Syringe SC SCH (09:14)
--- NOTE | 2017-04-28 09:19 | CP.PCM.PN ---
Subjective - Date & Time of Evaluation Date of Evaluation: 04/28/17 Objective - Vital Signs/Intake and Output Vital Signs (last 24 hours): Temp Pulse Resp BP Pulse Ox 97.9 F 88 20 113/73 97 04/28/17 08:14 04/28/17 08:14 04/28/17 08:14 04/28/17 08:14 04/28/17 08:14 Intake and Output: 04/28/17 04/28/17 06:59 18:59 Intake Total 600 Balance 600 - Medications Medications: Current Medications Diphenhydramine HCl (Benadryl) 25 mg IVP Q3 PRN PRN Reason: Pain, moderate (4-7) Last Admin: 04/28/17 09:07 Dose: 25 mg Enoxaparin Sodium (Lovenox) 40 mg SC DAILY [facility] Last Admin: 04/28/17 09:14 Dose: Not Given Folic Acid (Folic Acid) 2 mg PO DAILY [facility] Last Admin: 04/28/17 09:05 Dose: 2 mg Hydromorphone HCl (Dilaudid) 2 mg IVP Q3 PRN PRN Reason: Pain, moderate (4-7) Last Admin: 04/28/17 09:08 Dose: 2 mg Dextrose/Sodium Chloride (Dextrose 5%/0.45% Ns 1000 Ml) 1,000 mls @ 60 mls/hr IV .[id number] [facility] Last Admin: 04/26/17 19:32 Dose: Not Given Meropenem 1 gm/ Sodium (Chloride) 100 mls @ 100 mls/hr IVPB Q8 [facility] Last Admin: 04/28/17 06:22 Dose: 100 mls/hr Pantoprazole Sodium (Protonix Inj) 40 mg IVP DAILY [facility] Last Admin: 04/28/17 09:06 Dose: 40 mg - Labs Labs: 04/28/17 06:50 04/28/17 06:50 PT 14.6 SECONDS (9.7-12.2) H 04/19/17 02:26 INR 1.3 04/19/17 02:26 APTT 39 SECONDS (21-34) H 04/19/17 02:26 Assessment and Plan (1) Severe anemia Status: Acute (2) Sickle cell anemia with pain Status: Acute (3) Animal bite wound Status: Acute (4) Leg pain Status: Acute (5) Leukocytosis Status: Acute (6) Myalgia Status: Acute (7) Pain Status: Acute (8) Sickle cell anemia Status: Acute (9) Sickle cell pain crisis Status: Acute (10) UTI (urinary tract infection) Status: Acute - Assessment and Plan (Free Text) Plan: Continue pain medicine possible discharge plan continue IV Dilaudid and IV Benadryl Continue meropenem WBCs still high Patient has a chronic ongoing UTI Discharge plan is is a 36 yo female with 1. Sickle cell anemia -continue D5 / NS 60 cc/hr -folic acid daily -dilaudid 2 IV q 3 hrs prn. -lovenox 40 daily -transfusions as necessary -HGB improved today as well. -will continue to monitor -as pt is at risk for ischemia, will transfer to tele 2. Tachycardia -cardiology consult. Dr. Galvez. recs appreciated. -transfer to telemetry. 3. Urinary tract infecton -urine culture 04/19 grew E. Coli -ua shows 3 plus LE -meropenem 1 g IV q 8 hrs. -ID consult. Dr. Ruth Jones. recs appreciated. 4. leukocytosis -likely secondary to UTI 5. GI/DVT ppx -lovenox 40 daily -protonix daily
--- NOTE | 2017-04-28 13:16 | CP.PCM.PN ---
Subjective - Date & Time of Evaluation Date of Evaluation: 04/28/17 Time of Evaluation: 13:13 - Subjective Subjective: DISCUSSED D/C PLAN WITH DR. VEGAS AND HE CLEARED, SHE MAY F/U OP. ALSO DISCUSSED WITH DR. Matt PENNY AND SHE IS NOT CLEARING THE PT UNTIL TOMORROW. PER DR. PENNY CONTINUE 1 MORE DAY OF MERREM IV AND STARTING TOMORROW PT MAY BE D/C'D HOME WITH BACTRIM DS 1 TAB PO BID X5 DAYS. RX HAS ALREADY BEEN SENT TO PT'S PHARMACY AND SHE MAY PICK IT UP TOMORROW AFTER DISCHARGE. DR. Alba GONZALEZ AWARE OF D/C PLAN FOR TOMORROW. PT AWARE AND IN AGREEMENT. NO FURTHER ORDER.S Objective - Vital Signs/Intake and Output Vital Signs (last 24 hours): Temp Pulse Resp BP Pulse Ox 97.9 F 88 20 113/73 97 04/28/17 08:14 04/28/17 08:14 04/28/17 08:14 04/28/17 08:14 04/28/17 08:14 Intake and Output: 04/28/17 04/28/17 06:59 18:59 Intake Total 600 Balance 600 - Medications Medications: Current Medications Diphenhydramine HCl (Benadryl) 25 mg IVP Q3 PRN PRN Reason: Pain, moderate (4-7) Last Admin: 04/28/17 12:02 Dose: 25 mg Enoxaparin Sodium (Lovenox) 40 mg SC DAILY [facility] Last Admin: 04/28/17 09:14 Dose: Not Given Folic Acid (Folic Acid) 2 mg PO DAILY [facility] Last Admin: 04/28/17 09:05 Dose: 2 mg Hydromorphone HCl (Dilaudid) 2 mg IVP Q3 PRN PRN Reason: Pain, moderate (4-7) Last Admin: 04/28/17 12:03 Dose: 2 mg Dextrose/Sodium Chloride (Dextrose 5%/0.45% Ns 1000 Ml) 1,000 mls @ 60 mls/hr IV .[id number] [facility] Last Admin: 04/26/17 19:32 Dose: Not Given Meropenem 1 gm/ Sodium (Chloride) 100 mls @ 100 mls/hr IVPB Q8 [facility] Last Admin: 04/28/17 06:22 Dose: 100 mls/hr Pantoprazole Sodium (Protonix Inj) 40 mg IVP DAILY [facility] Last Admin: 04/28/17 09:06 Dose: 40 mg - Labs Labs: 04/28/17 06:50 04/28/17 06:50 PT 14.6 SECONDS (9.7-12.2) H 04/19/17 02:26 INR 1.3 04/19/17 02:26 APTT 39 SECONDS (21-34) H 04/19/17 02:26
--- NOTE | 2017-04-28 14:43 | CP.PCM.PN ---
<Alexis Zazueta - Last Filed: 04/28/17 14:44> Subjective - Date & Time of Evaluation Date of Evaluation: 04/28/17 Time of Evaluation: 14:35 - Subjective Subjective: Progress Note. Attending: Dr. Hernandez. Pt seen and examined at bedside. No acute distress. No events overnight. No fevers, chills, vomiting, diarrhea. Objective - Vital Signs/Intake and Output Vital Signs (last 24 hours): Temp Pulse Resp BP Pulse Ox 97.9 F 88 20 113/73 97 04/28/17 08:14 04/28/17 08:14 04/28/17 08:14 04/28/17 08:14 04/28/17 08:14 Intake and Output: 04/28/17 04/28/17 06:59 18:59 Intake Total 1400 Balance 1400 - Medications Medications: Current Medications Diphenhydramine HCl (Benadryl) 25 mg IVP Q3 PRN PRN Reason: Pain, moderate (4-7) Last Admin: 04/28/17 12:02 Dose: 25 mg Enoxaparin Sodium (Lovenox) 40 mg SC DAILY [facility] Last Admin: 04/28/17 09:14 Dose: Not Given Folic Acid (Folic Acid) 2 mg PO DAILY [facility] Last Admin: 04/28/17 09:05 Dose: 2 mg Hydromorphone HCl (Dilaudid) 2 mg IVP Q3 PRN PRN Reason: Pain, moderate (4-7) Last Admin: 04/28/17 12:03 Dose: 2 mg Dextrose/Sodium Chloride (Dextrose 5%/0.45% Ns 1000 Ml) 1,000 mls @ 60 mls/hr IV .[id number] [facility] Last Admin: 04/26/17 19:32 Dose: Not Given Meropenem 1 gm/ Sodium (Chloride) 100 mls @ 100 mls/hr IVPB Q8 [facility] Last Admin: 04/28/17 13:49 Dose: 100 mls/hr Pantoprazole Sodium (Protonix Inj) 40 mg IVP DAILY [facility] Last Admin: 04/28/17 09:06 Dose: 40 mg - Labs Labs: 04/28/17 06:50 04/28/17 06:50 PT 14.6 SECONDS (9.7-12.2) H 04/19/17 02:26 INR 1.3 04/19/17 02:26 APTT 39 SECONDS (21-34) H 04/19/17 02:26 - Constitutional Appears: Non-toxic, No Acute Distress - Head Exam Head Exam: ATRAUMATIC, NORMAL INSPECTION, NORMOCEPHALIC - Eye Exam Eye Exam: EOMI - ENT Exam ENT Exam: Mucous Membranes Moist - Neck Exam Neck Exam: Full ROM - Respiratory Exam Respiratory Exam: NORMAL BREATHING PATTERN. absent: Respiratory Distress - Cardiovascular Exam Cardiovascular Exam: +S1, +S2 - GI/Abdominal Exam GI & Abdominal Exam: Soft, Normal Bowel Sounds. absent: Tenderness - Extremities Exam Extremities Exam: Full ROM, Normal Inspection - Back Exam Back Exam: NORMAL INSPECTION - Neurological Exam Neurological Exam: Alert, Awake, CN II-XII Intact, Oriented x3 - Psychiatric Exam Psychiatric exam: Normal Affect, Normal Mood - Skin Skin Exam: Dry, Intact, Normal Color, Warm Assessment and Plan - Assessment and Plan (Free Text) Assessment: This is a 36 yo female with 1. Sickle cell anemia -continue D5 02/23 NS 60 cc/hr -folic acid daily -dilaudid 2 IV q 3 hrs prn. -lovenox 40 daily -transfusions as necessary -HGB improved today as well. -will continue to monitor -as pt is at risk for ischemia, will transfer to tele 2. Tachycardia -cardiology consult. Dr. Galvez. recs appreciated. -transfer to telemetry. 3. Urinary tract infecton -urine culture 04/19 grew E. Coli -ua shows 3 plus LE -meropenem 1 g IV q 8 hrs. -ID consult. Dr. Ruth Jones. recs appreciated. 4. leukocytosis -likely secondary to UTI 5. GI/DVT ppx -lovenox 40 daily -protonix daily discussed with Dr. Hernandez. <Rosalina Hernandez - Last Filed: 04/28/17 18:40> Objective - Vital Signs/Intake and Output Vital Signs (last 24 hours): Temp Pulse Resp BP Pulse Ox 98.5 F 111 H 20 115/78 100 04/28/17 16:20 04/28/17 16:20 04/28/17 16:20 04/28/17 16:20 04/28/17 16:20 Intake and Output: 04/28/17 04/28/17 06:59 18:59 Intake Total 1400 Balance 1400 - Medications Medications: Current Medications Diphenhydramine HCl (Benadryl) 25 mg IVP Q3 PRN PRN Reason: Pain, moderate (4-7) Last Admin: 04/28/17 18:09 Dose: 25 mg Enoxaparin Sodium (Lovenox) 40 mg SC DAILY [facility] Last Admin: 04/28/17 09:14 Dose: Not Given Folic Acid (Folic Acid) 2 mg PO DAILY [facility] Last Admin: 04/28/17 09:05 Dose: 2 mg Hydromorphone HCl (Dilaudid) 2 mg IVP Q3 PRN PRN Reason: Pain, moderate (4-7) Last Admin: 04/28/17 18:10 Dose: 2 mg Dextrose/Sodium Chloride (Dextrose 5%/0.45% Ns 1000 Ml) 1,000 mls @ 60 mls/hr IV .[id number] [facility] Last Admin: 04/26/17 19:32 Dose: Not Given Meropenem 1 gm/ Sodium (Chloride) 100 mls @ 100 mls/hr IVPB Q8 [facility] Last Admin: 04/28/17 13:49 Dose: 100 mls/hr Pantoprazole Sodium (Protonix Inj) 40 mg IVP DAILY [facility] Last Admin: 04/28/17 09:06 Dose: 40 mg - Labs Labs: 04/28/17 06:50 04/28/17 06:50 PT 14.6 SECONDS (9.7-12.2) H 04/19/17 02:26 INR 1.3 04/19/17 02:26 APTT 39 SECONDS (21-34) H 04/19/17 02:26 Assessment and Plan (1) Severe anemia Status: Acute (2) Sickle cell anemia with pain Status: Acute (3) Animal bite wound Status: Acute (4) Leg pain Status: Acute (5) Leukocytosis Status: Acute (6) Myalgia Status: Acute (7) Pain Status: Acute (8) Sickle cell anemia Status: Acute (9) Sickle cell pain crisis Status: Acute (10) UTI (urinary tract infection) Status: Acute Attending/Attestation - Attestation I have personally seen and examined this patient.: Yes I have fully participated in the care of the patient.: Yes I have reviewed all pertinent clinical information, including history, physical exam and plan: Yes Notes (Text): 04/28/17 18:40 Case seen and seen and discussed with the staff ID and ID consult IV antibiotic pain medications
--- NOTE | 2017-04-28 15:11 | CP.PCM.PN ---
Subjective - Date & Time of Evaluation Date of Evaluation: 04/28/17 Time of Evaluation: 11:00 - Subjective Subjective: Feeling better. Objective - Vital Signs/Intake and Output Vital Signs (last 24 hours): Temp Pulse Resp BP Pulse Ox 97.9 F 88 20 113/73 97 04/28/17 08:14 04/28/17 08:14 04/28/17 08:14 04/28/17 08:14 04/28/17 08:14 Intake and Output: 04/28/17 04/28/17 06:59 18:59 Intake Total 1400 Balance 1400 - Medications Medications: Current Medications Diphenhydramine HCl (Benadryl) 25 mg IVP Q3 PRN PRN Reason: Pain, moderate (4-7) Last Admin: 04/28/17 15:03 Dose: 25 mg Enoxaparin Sodium (Lovenox) 40 mg SC DAILY [facility] Last Admin: 04/28/17 09:14 Dose: Not Given Folic Acid (Folic Acid) 2 mg PO DAILY [facility] Last Admin: 04/28/17 09:05 Dose: 2 mg Hydromorphone HCl (Dilaudid) 2 mg IVP Q3 PRN PRN Reason: Pain, moderate (4-7) Last Admin: 04/28/17 15:04 Dose: 2 mg Dextrose/Sodium Chloride (Dextrose 5%/0.45% Ns 1000 Ml) 1,000 mls @ 60 mls/hr IV .[id number] [facility] Last Admin: 04/26/17 19:32 Dose: Not Given Meropenem 1 gm/ Sodium (Chloride) 100 mls @ 100 mls/hr IVPB Q8 [facility] Last Admin: 04/28/17 13:49 Dose: 100 mls/hr Pantoprazole Sodium (Protonix Inj) 40 mg IVP DAILY [facility] Last Admin: 04/28/17 09:06 Dose: 40 mg - Labs Labs: 04/28/17 06:50 04/28/17 06:50 PT 14.6 SECONDS (9.7-12.2) H 04/19/17 02:26 INR 1.3 04/19/17 02:26 APTT 39 SECONDS (21-34) H 04/19/17 02:26 - Head Exam Head Exam: ATRAUMATIC - Eye Exam Eye Exam: Normal appearance - ENT Exam ENT Exam: Mucous Membranes Dry - Respiratory Exam Respiratory Exam: NORMAL BREATHING PATTERN - Cardiovascular Exam Cardiovascular Exam: +S1, +S2 - GI/Abdominal Exam GI & Abdominal Exam: Normal Bowel Sounds Assessment and Plan (1) Sickle cell anemia with pain Assessment & Plan: IV fluids, pain meds, 02 via NC, folic acid s/p PRBC transfusion Status: Acute (2) Leukocytosis Assessment & Plan: on antibiotics likely reactive component Status: Acute (3) Sickle cell anemia Assessment & Plan: folic acid Status: Acute
[2017-04-29] MEDS: DiphenhydrAMINE 50 mg/ml Inj IVP PRN ×7 (00:16→18:36)
[2017-04-29] MEDS: Meropenem 1 GM in Sodium Chloride 0.9% 100 ML IVPB SCH ×2 (05:33→13:49)
[2017-04-29 07:14] LABS: BASO # 0.2 K/uL (0.0-0.2); BASO % 0.9 % (0.0-2.0); EOS # 1.7 K/uL (0.0-0.7); EOS % 7.3 % (0.0-4.0); LYMPH # 6.2 K/uL (1.0-4.3); LYMPH % 26.8 % (20.0-40.0); MEAN CELL VOLUME 87.1 fL (81.0-99.0); MEAN CORPUSCULAR HGB CONC 34.4 g/dL (33.0-37.0); MEAN PLATELET VOLUME 8.6 fL (7.2-11.7); MONO % 8.5 % (0.0-10.0); NEUT % 56.5 % (50.0-75.0); NRBC % 0.2 % (0.0-2.0); RBC 2.34 Mil/uL (3.80-5.20); RED CELL DISTRIBUTION WIDTH 17.3 % (11.5-14.5)
[2017-04-29 07:24] LABS: ALB/GLOB RATIO 0.7 (1.0-2.1); ALBUMIN 3.6 g/dL (3.5-5.0); ALT/SGPT 50 U/L (9-52); AST/SGOT 89 U/L (14-36); BLOOD UREA NITROGEN 24 mg/dL (7-17); CALCIUM 8.1 mg/dl (8.6-10.4); GFR AFRICAN-AMERICAN > 60; GFR NON-AFRICAN AMERICAN > 60
[2017-04-29 08:10] VITALS: TEMP 98
[2017-04-29] MEDS: Enoxaparin 40 mg Syringe SC SCH (09:14)
[2017-04-29] MEDS ORDERED: Sod Polystyrene Sulf 15 gm/60 ml Susp PO ONE ×2 (12:37→12:45)
--- NOTE | 2017-04-29 15:02 | CP.PCM.PN ---
Subjective - Date & Time of Evaluation Date of Evaluation: 04/29/17 Time of Evaluation: 15:02 - Subjective Subjective: PGY2 Medicine Note for Dr. Alba cleveland; all management as per Dr. Alba cleveland Patient states she feels better today; states she has neurogenic bladder for which she straight caths at home and has not been able to urinate well since being here; denies fevers/chills, BLANK, CP, SOB, abdominal pain, N/V/D, lower extremity pain/swelling. Objective - Vital Signs/Intake and Output Vital Signs (last 24 hours): Temp Pulse Resp BP Pulse Ox 98 F 90 20 117/76 96 04/29/17 08:08 04/29/17 08:08 04/29/17 08:08 04/29/17 08:08 04/29/17 08:08 Intake and Output: 04/29/17 04/29/17 06:59 18:59 Intake Total 960 Balance 960 - Medications Medications: Current Medications Diphenhydramine HCl (Benadryl) 25 mg IVP Q3 PRN PRN Reason: Pain, moderate (4-7) Last Admin: 04/29/17 12:47 Dose: 25 mg Enoxaparin Sodium (Lovenox) 40 mg SC DAILY [facility] Last Admin: 04/29/17 09:14 Dose: Not Given Folic Acid (Folic Acid) 2 mg PO DAILY [facility] Last Admin: 04/29/17 09:06 Dose: 2 mg Hydromorphone HCl (Dilaudid) 2 mg IVP Q3 PRN PRN Reason: Pain, moderate (4-7) Last Admin: 04/29/17 12:47 Dose: 2 mg Meropenem 1 gm/ Sodium (Chloride) 100 mls @ 100 mls/hr IVPB Q8 [facility] Last Admin: 04/29/17 13:49 Dose: 100 mls/hr Pantoprazole Sodium (Protonix Inj) 40 mg IVP DAILY [facility] Last Admin: 04/29/17 09:07 Dose: 40 mg - Labs Labs: 04/29/17 06:58 04/29/17 06:58 PT 14.6 SECONDS (9.7-12.2) H 04/19/17 02:26 INR 1.3 04/19/17 02:26 APTT 39 SECONDS (21-34) H 04/19/17 02:26 - Head Exam Additional comments: Appears: Non-toxic, No Acute Distress - Head Exam Head Exam: ATRAUMATIC, NORMAL INSPECTION, NORMOCEPHALIC - Eye Exam Eye Exam: EOMI - ENT Exam ENT Exam: Mucous Membranes Moist - Neck Exam Neck Exam: Full ROM - Respiratory Exam Respiratory Exam: NORMAL BREATHING PATTERN. absent: Respiratory Distress - Cardiovascular Exam Cardiovascular Exam: +S1, +S2 - GI/Abdominal Exam GI & Abdominal Exam: Soft, Normal Bowel Sounds. absent: Tenderness - Extremities Exam Extremities Exam: Full ROM, Normal Inspection - Back Exam Back Exam: NORMAL INSPECTION - Neurological Exam Neurological Exam: Alert, Awake, CN II-XII Intact, Oriented x3 - Psychiatric Exam Psychiatric exam: Normal Affect, Normal Mood - Skin Skin Exam: Dry, Intact, Normal Color, Warm Assessment and Plan - Assessment and Plan (Free Text) Assessment: This is a 36 yo female admitted for sickle cell crisis Sickle cell Crisis -continue D5 1/2 NS 60 cc/hr -folic acid daily -dilaudid 2 IV q 3 hrs prn. -lovenox 40 daily -transfusions as necessary; avoid iron overload -HGB stable at 7.0 which is patients baseline -will continue to monitor -as pt is at risk for ischemia, will transfer to tele Tachycardia -cardiology consult. Dr. Galvez. recs appreciated. most likely 2/2 to extreme anemia Urinary tract infection -urine culture 04/19 grew E. Coli -ua shows 3 plus LE -meropenem 1 g IV q 8 hrs. -ID consult. Dr. Ruth Jones. recs appreciated. -patient states she straight caths at home; reiterated sterile technique to patient Neurogenic bladder -straight cath PRN; patient is able to do herself leukocytosis -likely secondary to UTI -remains elevated -will monitor -afebrile GI/DVT ppx -lovenox 40 daily -protonix daily All management as per Dr. Alba [place]
[2017-04-29 15:57] VITALS: BP 135/81; PULSE 100; O2SAT 100
--- NOTE | 2017-04-29 16:53 | CP.PCM.PN ---
Subjective - Date & Time of Evaluation Date of Evaluation: 04/29/17 Time of Evaluation: 15:20 - Subjective Subjective: Has some back pain. Objective - Vital Signs/Intake and Output Vital Signs (last 24 hours): Temp Pulse Resp BP Pulse Ox 98 F 100 H 20 135/81 100 04/29/17 15:56 04/29/17 15:56 04/29/17 15:56 04/29/17 15:56 04/29/17 15:56 Intake and Output: 04/29/17 04/29/17 06:59 18:59 Intake Total 960 Balance 960 - Medications Medications: Current Medications Diphenhydramine HCl (Benadryl) 25 mg IVP Q3 PRN PRN Reason: Pain, moderate (4-7) Last Admin: 04/29/17 15:32 Dose: 25 mg Enoxaparin Sodium (Lovenox) 40 mg SC DAILY [facility] Last Admin: 04/29/17 09:14 Dose: Not Given Folic Acid (Folic Acid) 2 mg PO DAILY [facility] Last Admin: 04/29/17 09:06 Dose: 2 mg Hydromorphone HCl (Dilaudid) 2 mg IVP Q3 PRN PRN Reason: Pain, moderate (4-7) Last Admin: 04/29/17 15:33 Dose: 2 mg Meropenem 1 gm/ Sodium (Chloride) 100 mls @ 100 mls/hr IVPB Q8 [facility] Last Admin: 04/29/17 13:49 Dose: 100 mls/hr Pantoprazole Sodium (Protonix Inj) 40 mg IVP DAILY [facility] Last Admin: 04/29/17 09:07 Dose: 40 mg - Labs Labs: 04/29/17 06:58 04/29/17 06:58 PT 14.6 SECONDS (9.7-12.2) H 04/19/17 02:26 INR 1.3 04/19/17 02:26 APTT 39 SECONDS (21-34) H 04/19/17 02:26 - Head Exam Head Exam: ATRAUMATIC - Eye Exam Eye Exam: Normal appearance - ENT Exam ENT Exam: Mucous Membranes Dry - Respiratory Exam Respiratory Exam: NORMAL BREATHING PATTERN - Cardiovascular Exam Cardiovascular Exam: +S1, +S2 - GI/Abdominal Exam GI & Abdominal Exam: Normal Bowel Sounds Assessment and Plan (1) Sickle cell anemia with pain Assessment & Plan: IV fluids, pain meds, folic acid, 02 via NC s/p PRBC transfusion Status: Acute (2) Leukocytosis Assessment & Plan: on antibiotics reactive component from sickle cell Status: Acute (3) Sickle cell anemia Assessment & Plan: folic acid Status: Acute
--- NOTE | 2017-04-29 23:26 | CP.PCM.PN ---
Subjective - Date & Time of Evaluation Date of Evaluation: 04/29/17 Objective - Vital Signs/Intake and Output Vital Signs (last 24 hours): Temp Pulse Resp BP Pulse Ox 98 F 100 H 20 135/81 100 04/29/17 15:56 04/29/17 15:56 04/29/17 15:56 04/29/17 15:56 04/29/17 15:56 Intake and Output: 04/29/17 04/30/17 18:59 06:59 Intake Total 960 Balance 960 - Labs Labs: 04/29/17 06:58 04/29/17 06:58 PT 14.6 SECONDS (9.7-12.2) H 04/19/17 02:26 INR 1.3 04/19/17 02:26 APTT 39 SECONDS (21-34) H 04/19/17 02:26 Assessment and Plan (1) Severe anemia Status: Acute (2) Sickle cell anemia with pain Status: Acute (3) Animal bite wound Status: Acute (4) Leg pain Status: Acute (5) Leukocytosis Status: Acute (6) Myalgia Status: Acute (7) Pain Status: Acute (8) Sickle cell anemia Status: Acute (9) Sickle cell pain crisis Status: Acute (10) UTI (urinary tract infection) Status: Acute
== END 2017-04-29 19:57 | disposition home or self-care (01) | DRG 812 ==
LOC: C.ER 01:29 → C.9E 03:44 → C.3T 21:36
PROVIDERS: ADMIT Internal Medicine Nephrology; ATTEND Internal Medicine Nephrology
DX: D57.00 Hb-SS disease with crisis, unspecified (principal); N31.9 Neuromuscular dysfunction of bladder, unspecified; N39.0 Urinary tract infection, site not specified; J44.9 Chronic obstructive pulmonary disease, unspecified; G43.909 Migraine, unspecified, not intractable, without status migrainosus; Z90.49 Acquired absence of other specified parts of digestive tract

== ENCOUNTER 2017-05-02 17:27 | Inpatient (IN) | payer MEDICARE ==
[2017-05-02 17:28] VITALS: BMI 22.4
[2017-05-02 19:51] LABS: BASO # 0.3 K/uL (0.0-0.2); BASO % 1.2 % (0.0-2.0); EOS # 0.9 K/uL (0.0-0.7); EOS % 3.7 % (0.0-4.0); HEMOGLOBIN 6.9 g/dL (11.0-16.0); LYMPH # 7.5 K/uL (1.0-4.3); LYMPH % 29.7 % (20.0-40.0); MEAN CELL VOLUME 85.7 fL (81.0-99.0); MEAN CORPUSCULAR HEMOGLOBIN 29.1 pg (27.0-31.0); MEAN PLATELET VOLUME 8.1 fL (7.2-11.7); MONO # 2.4 K/uL (0.0-0.8); MONO % 9.4 % (0.0-10.0); NEUT # 14.1 K/uL (1.8-7.0); NRBC % 0.2 % (0.0-2.0); RBC 2.37 Mil/uL (3.80-5.20); WHITE BLOOD COUNT 25.2 K/uL (4.8-10.8)
--- NOTE | 2017-05-02 19:52 | C.PDOC ---
History Of Present Illness Patient is a 36 y/o female with a PMHx of sickle cell disease, who presents to the ER complaining of 3 days of sickle cell crisis. She reports generalized bodyaches. No other complaints offered at this time. Denies any cough, shortness of breath, or fever. PMD: Alba Hernandez Time Seen by Provider: 05/02/17 19:22 Chief Complaint (Nursing): Pain, Chronic History Per: Patient History/Exam Limitations: no limitations Onset/Duration Of Symptoms: Days (x3) Current Symptoms Are (Timing): Still Present Past Medical History Reviewed: Historical Data, Nursing Documentation, Vital Signs Vital Signs: Last Vital Signs Temp 97 F L 05/02/17 17:55 Pulse 96 H 05/02/17 19:54 Resp 20 05/02/17 19:54 BP 121/83 05/02/17 19:54 Pulse Ox 99 05/02/17 20:16 - Medical History PMH: Anemia, Migraine, Sickle Cell Disease Denies: Alzheimer's Disease, Asthma, Atrial Fibrillation, Bronchitis, Cardia Arrhythmia, CHF, COPD, Dementia, Emphysema, HIV, HTN, Hypercholesterolemia, Hyperthyroidism, Hypothyroidism, Kidney Stones, Mitral Valve Prolapse, Multiple Sclerosis, Parkinson's Disease, Peripheral Edema, Pneumonia, Pulmonary Embolism , Chronic Kidney Disease, Seizures, Sleep Apnea, TIA Surgical History: Cholecystectomy (2003) Denies: Pacemaker - [facility] Procedures PACKED CELL TRANSFUSION (07/26/12) TETANUS TOXOID ADMINIST (11/14/12) TRANSFUSE NONAUT RED BLOOD CELLS IN PERIPH VEIN, PERC (04/08/17) Family History: States: Unknown Family Hx - Social History Hx Tobacco Use: No Hx Alcohol Use: No Hx Substance Use: No - Immunization History Hx Tetanus Toxoid Vaccination: Yes Hx Influenza Vaccination: Yes Hx Pneumococcal Vaccination: Yes Review Of Systems Except As Marked, All Systems Reviewed And Found Negative. Constitutional: Negative for: Fever Respiratory: Negative for: Cough, Shortness of Breath Musculoskeletal: Positive for: Other (generalized bodyaches consistent with sickle cell crisis) Physical Exam - Physical Exam Appears: Non-toxic, No Acute Distress Skin: Normal Color, Warm, Dry Head: Atraumatic, Normacephalic Eye(s): bilateral: Normal Inspection, PERRL, EOMI Nose: Normal Oral Mucosa: Moist Neck: Normal ROM, Supple Chest: Symmetrical Cardiovascular: Rhythm Regular, No Murmur Respiratory: Normal Breath Sounds, No Accessory Muscle Use Gastrointestinal/Abdominal: Soft, No Tenderness, No Distention Extremity: Normal ROM, No Tenderness, No Deformity, No Swelling Neurological/Psych: Oriented x3, Normal Speech, Normal Motor, Normal Sensation ED Course And Treatment - Laboratory Results Result Diagrams: 05/02/17 19:46 05/02/17 19:46 O2 Sat by Pulse Oximetry: 99 (RA) Pulse Ox Interpretation: Normal Medical Decision Making Medical Decision Making: Time: 19:26 Initial Plan: * CMP * CBC * PTT * Prothrombin time * Reticulocyte count * HCG, qualitative urine * Dilaudid 8 mg PO * Urinalysis 20:16 Labs reviewed, and appear to be at baseline for patient. no cough lungs cta speaking full sentences, Disposition - Disposition Disposition: HOSPITALIZED Disposition Time: 21:16 Condition: STABLE - Clinical Impression Clinical Impression: Sickle cell pain crisis - Scribe Statement The provider has reviewed the documentation as recorded by the Gray Cha Provider Attestation: All medical record entries made by the Alanaibstone were at my direction and personally dictated by me. I have reviewed the chart and agree that the record accurately reflects my personal performance of the history, physical exam, medical decision making, and the department course for this patient. I have also personally directed, reviewed, and agree with the discharge instructions and disposition. Decision To Admit - Pt Status Changed To: Hospital Disposition Of: Inpatient - Admit Certification Admit to Inpatient:: After my assessment, the patient will require hospitalization for at least two midnights. This is because of the severity of symptoms shown, intensity of services needed, and/or the medical risk in this patient being treated as an outpatient. - InPatient: Physician Admission Certification: I certify that this patient requires 2 or more midnights of care for the following reason:: sickle cell needs pain meds - . Bed Request Type: Regular Admitting Physician: Rosalina Hernandez Patient Diagnosis: Sickle cell pain crisis
[2017-05-02 19:56] LABS: HCG,QUALITATIVE URINE NEGATIVE (NEGATIVE); SQUAMOUS EPITHIAL 14 /hpf (0-5); URINE BACTERIA MANY (<OCC); URINE BILIRUBIN NEGATIVE (NEGATIVE); URINE BLOOD 2+ (NEGATIVE); URINE CLARITY Hazy (Clear); URINE COLOR Yellow (YELLOW); URINE GLUCOSE (UA) NORMAL (Normal); URINE LEUKOCYTE ESTERASE 3+ Leu/uL (Negative); URINE PROTEIN 1+ mg/dL (NEGATIVE); URINE UROBILINOGEN NORMAL mg/dL (0.2-1.0)
[2017-05-02 19:59] LABS: INR 1.4; PROTHROMBIN TIME 15.3 SECONDS (9.7-12.2)
[2017-05-02] MEDS: DiphenhydrAMINE 50 mg/ml Inj IVP SCH ×2 (20:00→23:56)
[2017-05-02 20:05] LABS: ALB/GLOB RATIO 0.7 (1.0-2.1); ALBUMIN 3.5 g/dL (3.5-5.0); ALT/SGPT 96 U/L (9-52); AST/SGOT 164 U/L (14-36); BLOOD UREA NITROGEN 23 mg/dL (7-17); GFR AFRICAN-AMERICAN > 60; GFR NON-AFRICAN AMERICAN 56
[2017-05-02] MEDS ORDERED: Sodium Chloride 0.9% 1,000 ML IV ONE (20:20)
[2017-05-02] MEDS ORDERED: DiphenhydrAMINE 50 mg/ml Inj ONE ×2 (20:32→23:50)
[2017-05-02] MEDS ORDERED: HYDROmorphone 0.5 mg/0.5 ml ISec ONE (20:32)
[2017-05-02] MEDS ORDERED: HYDROmorphone 1 mg/ml ISec ONE (23:50)
[2017-05-03] MEDS ORDERED: HYDROmorphone 1 mg/ml ISec ONE (03:14)
[2017-05-03] MEDS ORDERED: DiphenhydrAMINE 50 mg/ml Inj ONE (03:15)
[2017-05-03] MEDS: DiphenhydrAMINE 50 mg/ml Inj IVP SCH ×8 (03:20→23:20)
[2017-05-03] MEDS: Enoxaparin 40 mg Syringe SC SCH (10:46)
[2017-05-03] MEDS: Pantoprazole 40 mg EC Tab PO SCH (10:46)
--- NOTE | 2017-05-03 13:51 | CP.PCM.CON ---
History of Present Illness - History of Present Illness History of Present Illness: Infectious Disease Consult' HPI; 36 yo F with PMH of Sickle cell disease, anemia, migraines presents to ED with c /o generalized bodyaches and weakness since 3 days. Pt with similar complaints 10 days prior and s/p recent admission for sickle cell crisis. Pt reports symptoms are similar to past episodes of sickle cell crises. Pt admitted for management of sickle cell crisis and also noted to have UTI with VRE ON REPEAT URINE SENT DURING LAST ADMISSION 0F 04/28/17. PT. denies fever, chills, dyspnea, n/v/d. ON ADMISSION PATIENT WAS FOUND TO HAVE LEUKOCYTOSIS WITH wbc COUNT OF 25.6, HEMOGLOBIN OF 6.9, AND RETICULOCYTE COUNT OF 7.6 patient was recently discharged on po bactrim. U/A IS HAZY WITH 3+ LEUKOCYTE ESTRASE WBC OF 540 AND MANY BACTERIA. Patient admits to frequencybut denies any hematuria. ON FURTHER QUESTIONING PATIENT GIVES HISTORY OF BILATERAL STENTS PLACED 2016 FOR HYDRONEPHROSIS IN [facility] [place]. pATIENT STATES SHE ALSO HAS HX OF NEUROGENIC BLADDER, AND GETS RECURRENT UTIS. PATIENT IS SINGLE. LMP 25 APRIL 2017.,LATELY PERIODS ARE IRREGULAR,BUT LAST FOR 5 DAYS. PMH: Anemia, Migraine, Sickle Cell Disease Surgical History: Cholecystectomy (2003), B/L INTERNAL STENTS FOR HYDRONEPHROSIS IN 2016. Denies: Pacemaker Allergy; droperidol, tramadol. Social History Hx Tobacco Use: No Hx Alcohol Use: No Hx Substance Use: No - Immunization History Hx Tetanus Toxoid Vaccination: Yes Hx Influenza Vaccination: Yes Hx Pneumococcal Vaccination: Yes Review of Systems - Constitutional Constitutional: Lethargy, Weakness. absent: Chills, Fever - EENT Eyes: absent: Change in Vision Nose/Mouth/Throat: absent: Mouth Lesions, Sore Throat - Cardiovascular Cardiovascular: absent: Chest Pain, Dyspnea - Respiratory Respiratory: absent: Cough - Gastrointestinal Gastrointestinal: absent: Abdominal Pain, Diarrhea, Nausea, Vomiting - Genitourinary Genitourinary: Pyuria, Urinary Frequency, Voiding Freq/Small Amts, Freq UTI - Menstruation Menstruation: Menses Variable - Musculoskeletal Musculoskeletal: Back Pain, Myalgias - Integumentary Integumentary: absent: Rash - Hematologic/Lymphatic Hematologic: As Per HPI. absent: Lymphadenopathy Past Patient History - Past Medical History & Family History Past Medical History?: Yes - Past Social History Smoking Status: Never Smoked - CARDIAC Hx Atrial Fibrillation: No Hx Cardia Arrhythmia: No Hx Congestive Heart Failure: No Hx Hypercholesterolemia: No Hx Hypertension: No Hx Mitral Valve Prolapse: No Hx Pacemaker: No Hx Peripheral Edema: No - PULMONARY Hx Asthma: No Hx Bronchitis: No Hx Chronic Obstructive Pulmonary Disease (COPD): No Hx Emphysema: No Hx Pneumonia: No Hx Pulmonary Embolism: No Hx Sleep Apnea: No - NEUROLOGICAL Hx Alzheimer's Disease: No Hx Dementia: No Hx Migraine: Yes Hx Multiple Sclerosis: No Hx Parkinson's Disease: No Hx Seizures: No Hx Transient Ischemic Attacks (TIA): No - HEENT Hx HEENT Problems: No Hx Blind: No Hx Cataracts: No Hx Deafness: No Hx Difficulty Chewing: No Hx Epistaxis: No Hx Glaucoma: No Hx Macular Degeneration: No - RENAL Hx Chronic Kidney Disease: No Hx Kidney Stones: No - ENDOCRINE/METABOLIC Hx Hyperthyroidism: No Hx Hypothyroidism: No - HEMATOLOGICAL/ONCOLOGICAL Hx Anemia: Yes Hx Human Immunodeficiency Virus (HIV): No Hx Sickle Cell Disease: Yes - INTEGUMENTARY Hx Dermatological Problems: No - MUSCULOSKELETAL/RHEUMATOLOGICAL Hx Falls: No - GASTROINTESTINAL Hx Gastrointestinal Disorders: No - GENITOURINARY/GYNECOLOGICAL Hx Genitourinary Disorders: No - PSYCHIATRIC Hx Substance Use: No - SURGICAL HISTORY Hx Surgeries: Yes Hx Cholecystectomy: Yes (2003) - ANESTHESIA Hx Anesthesia: Yes Hx Anesthesia Reactions: No Hx Malignant Hyperthermia: No Has any member of the family had a problem w/ anesthesia?: No Meds Allergies/Adverse Reactions: Allergies Allergy/AdvReac Type Severity Reaction Status Date / Time droperidol Allergy Verified 05/02/17 17:54 tramadol Allergy Verified 05/02/17 17:54 inapsine Allergy RASH Uncoded 05/02/17 17:54 - Medications Medications: Current Medications Diphenhydramine HCl (Benadryl) 50 mg IVP Q3 [facility] Last Admin: 05/03/17 10:45 Dose: 50 mg Enoxaparin Sodium (Lovenox) 40 mg SC DAILY [facility] Last Admin: 05/03/17 10:46 Dose: Not Given Hydromorphone HCl (Dilaudid) 3 mg IVP Q3H [facility] Last Admin: 05/03/17 10:45 Dose: 3 mg Sodium Chloride (Sodium Chloride 0.9%) 1,000 mls @ 50 mls/hr IV .Q20H ONE Stop: 05/03/17 16:19 Last Admin: 05/02/17 20:27 Dose: 50 mls/hr Linezolid (Zyvox 600mg/300ml D5w) 600 mg in 300 mls @ 200 mls/hr IVPB Q12H [facility] PRN Reason: Protocol Pantoprazole Sodium (Protonix Ec Tab) 40 mg PO DAILY [facility] Last Admin: 05/03/17 10:46 Dose: 40 mg Physical Exam - Constitutional Appears: No Acute Distress - Head Exam Head Exam: NORMAL INSPECTION - Eye Exam Eye Exam: EOMI, PERRL, Scleral icterus - ENT Exam ENT Exam: Normal Oropharynx - Neck Exam Neck exam: Positive for: Normal Inspection - Respiratory Exam Respiratory Exam: Clear to Auscultation Bilateral - Cardiovascular Exam Cardiovascular Exam: REGULAR RHYTHM, +S1, +S2 - GI/Abdominal Exam GI & Abdominal Exam: Normal Bowel Sounds, Soft, Tenderness (.) - Extremities Exam Extremities exam: Positive for: normal capillary refill, pedal pulses present. Negative for: calf tenderness, pedal edema - Neurological Exam Neurological exam: Alert, CN II-XII Intact, Oriented x3, Reflexes Normal - Psychiatric Exam Psychiatric exam: Normal Mood - Skin Skin Exam: Dry, Pallor Results - Vital Signs Recent Vital Signs: Last Vital Signs Temp 98.2 F 05/02/17 22:23 Pulse 79 05/03/17 07:16 Resp 18 05/03/17 07:16 BP 111/79 05/03/17 07:16 Pulse Ox 100 05/03/17 07:16 - Labs Result Diagrams: 05/02/17 19:46 05/02/17 19:46 Labs: Laboratory Results - last 24 hr 05/02/17 05/02/17 05/02/17 19:46 19:46 19:46 WBC 25.2 H RBC 2.37 L Hgb 6.9 L Hct 20.3 L MCV 85.7 MCH 29.1 MCHC 34.0 RDW 17.0 H Plt Count 194 MPV 8.1 Neut % (Auto) 56.0 Lymph % (Auto) 29.7 [place] % (Auto) 9.4 Eos % (Auto) 3.7 Baso % (Auto) 1.2 Neut # (Auto) 14.1 H Lymph # (Auto) 7.5 H [place] # (Auto) 2.4 H Eos # (Auto) 0.9 H Baso # (Auto) 0.3 H Retic Count PT 15.3 H INR 1.4 APTT 41 H Sodium 138 Potassium 4.7 Chloride 108 H Carbon Dioxide 20 L Anion Gap 15 BUN 23 H Creatinine 1.1 Est GFR ( Amer) > 60 Est GFR (Non-Af Amer) 56 Random Glucose 97 Calcium 8.0 L Total Bilirubin 2.6 H AST 164 H D ALT 96 H D Alkaline Phosphatase 168 H Total Protein 8.9 H Albumin 3.5 Globulin 5.4 H Albumin/Globulin Ratio 0.7 L Urine Color Urine Clarity Urine pH Ur Specific [place] Urine Protein Urine Glucose (UA) Urine Ketones Urine Blood Urine Nitrate Urine Bilirubin Urine Urobilinogen Ur Leukocyte Esterase Urine WBC (Auto) Urine RBC (Auto) Ur Squamous Epith Cells Urine Bacteria Urine HCG, Qual 05/02/17 05/02/17 19:46 19:46 WBC RBC Hgb Hct MCV MCH MCHC RDW Plt Count MPV Neut % (Auto) Lymph % (Auto) [place] % (Auto) Eos % (Auto) Baso % (Auto) Neut # (Auto) Lymph # (Auto) [place] # (Auto) Eos # (Auto) Baso # (Auto) Retic Count 7.6 H D PT INR APTT Sodium Potassium Chloride Carbon Dioxide Anion Gap BUN Creatinine Est GFR ( Amer) Est GFR (Non-Af Amer) Random Glucose Calcium Total Bilirubin AST ALT Alkaline Phosphatase Total Protein Albumin Globulin Albumin/Globulin Ratio Urine Color Yellow Urine Clarity Hazy Urine pH 6.0 Ur Specific [place] 1.009 Urine Protein 1+ H Urine Glucose (UA) Normal Urine Ketones Negative Urine Blood 2+ H Urine Nitrate Negative Urine Bilirubin Negative Urine Urobilinogen Normal Ur Leukocyte Esterase 3+ H Urine WBC (Auto) 540 H Urine RBC (Auto) 19 H Ur Squamous Epith Cells 14 H Urine Bacteria Many H Urine HCG, Qual Negative Assessment & Plan (1) Sickle cell pain crisis Assessment and Plan: wbc 25.2 H/H 6.9/20.3. PER PMD . Status: Acute (2) Leukocytosis Assessment and Plan: WBC 25.2 H/H 6.9/20.3. PLT 194. START IV ZYVOX 600MG IVPB Q 12HRL FOR VRE IN URINE 3/12/18. RENAL US /PELVIC SONOTO EVALUATE FOR B/L STENTS AND HYDRNEPHROSIS. EVALUATION. Status: Acute (3) UTI (urinary tract infection) Assessment and Plan: URINE CULTURE +VE VRE Status: Acute (4) Severe anemia Status: Acute (5) Neurogenic bladder Status: Acute
[2017-05-03] MEDS: Linezolid 600 mg in D5W 300 ml 600 MG/300 ML BAG IVPB SCH (14:12)
--- NOTE | 2017-05-03 15:42 | CP.PCM.HP ---
Past Patient History - Past Medical History & Family History Past Medical History?: Yes - Past Social History Smoking Status: Never Smoked - CARDIAC Hx Atrial Fibrillation: No Hx Cardia Arrhythmia: No Hx Congestive Heart Failure: No Hx Hypercholesterolemia: No Hx Hypertension: No Hx Mitral Valve Prolapse: No Hx Pacemaker: No Hx Peripheral Edema: No - PULMONARY Hx Asthma: No Hx Bronchitis: No Hx Chronic Obstructive Pulmonary Disease (COPD): No Hx Emphysema: No Hx Pneumonia: No Hx Pulmonary Embolism: No Hx Sleep Apnea: No - NEUROLOGICAL Hx Alzheimer's Disease: No Hx Dementia: No Hx Migraine: Yes Hx Multiple Sclerosis: No Hx Parkinson's Disease: No Hx Seizures: No Hx Transient Ischemic Attacks (TIA): No - HEENT Hx HEENT Problems: No Hx Blind: No Hx Cataracts: No Hx Deafness: No Hx Difficulty Chewing: No Hx Epistaxis: No Hx Glaucoma: No Hx Macular Degeneration: No - RENAL Hx Chronic Kidney Disease: No Hx Kidney Stones: No - ENDOCRINE/METABOLIC Hx Hyperthyroidism: No Hx Hypothyroidism: No - HEMATOLOGICAL/ONCOLOGICAL Hx Anemia: Yes Hx Human Immunodeficiency Virus (HIV): No Hx Sickle Cell Disease: Yes - INTEGUMENTARY Hx Dermatological Problems: No - MUSCULOSKELETAL/RHEUMATOLOGICAL Hx Falls: No - GASTROINTESTINAL Hx Gastrointestinal Disorders: No - GENITOURINARY/GYNECOLOGICAL Hx Genitourinary Disorders: No - PSYCHIATRIC Hx Substance Use: No - SURGICAL HISTORY Hx Surgeries: Yes Hx Cholecystectomy: Yes (2003) - ANESTHESIA Hx Anesthesia: Yes Hx Anesthesia Reactions: No Hx Malignant Hyperthermia: No Has any member of the family had a problem w/ anesthesia?: No Meds Allergies/Adverse Reactions: Allergies Allergy/AdvReac Type Severity Reaction Status Date / Time droperidol Allergy Verified 05/02/17 17:54 tramadol Allergy Verified 05/02/17 17:54 inapsine Allergy RASH Uncoded 05/02/17 17:54 Physical Exam - Constitutional Appears: Well - Head Exam Head Exam: ATRAUMATIC, NORMAL INSPECTION, NORMOCEPHALIC - Eye Exam Eye Exam: EOMI, Normal appearance, PERRL Pupil Exam: NORMAL ACCOMODATION, PERRL - ENT Exam ENT Exam: Mucous Membranes Moist, Normal Exam - Neck Exam Neck exam: Positive for: Normal Inspection - Respiratory Exam Respiratory Exam: Decreased Breath Sounds - Cardiovascular Exam Cardiovascular Exam: REGULAR RHYTHM, +S1, +S2 - GI/Abdominal Exam GI & Abdominal Exam: Diminished Bowel Sounds, Soft - Rectal Exam Rectal Exam: Deferred Results - Vital Signs Recent Vital Signs: Last Vital Signs Temp 98.2 F 05/02/17 22:23 Pulse 79 05/03/17 07:16 Resp 18 05/03/17 07:16 BP 111/79 05/03/17 07:16 Pulse Ox 100 05/03/17 07:16 - Labs Result Diagrams: 05/02/17 19:46 05/02/17 19:46 Labs: Laboratory Results - last 24 hr 05/02/17 05/02/17 05/02/17 19:46 19:46 19:46 WBC 25.2 H RBC 2.37 L Hgb 6.9 L Hct 20.3 L MCV 85.7 MCH 29.1 MCHC 34.0 RDW 17.0 H Plt Count 194 MPV 8.1 Neut % (Auto) 56.0 Lymph % (Auto) 29.7 [place] % (Auto) 9.4 Eos % (Auto) 3.7 Baso % (Auto) 1.2 Neut # (Auto) 14.1 H Lymph # (Auto) 7.5 H [place] # (Auto) 2.4 H Eos # (Auto) 0.9 H Baso # (Auto) 0.3 H Retic Count PT 15.3 H INR 1.4 APTT 41 H Sodium 138 Potassium 4.7 Chloride 108 H Carbon Dioxide 20 L Anion Gap 15 BUN 23 H Creatinine 1.1 Est GFR ( Amer) > 60 Est GFR (Non-Af Amer) 56 Random Glucose 97 Calcium 8.0 L Total Bilirubin 2.6 H AST 164 H D ALT 96 H D Alkaline Phosphatase 168 H Total Protein 8.9 H Albumin 3.5 Globulin 5.4 H Albumin/Globulin Ratio 0.7 L Urine Color Urine Clarity Urine pH Ur Specific [place] Urine Protein Urine Glucose (UA) Urine Ketones Urine Blood Urine Nitrate Urine Bilirubin Urine Urobilinogen Ur Leukocyte Esterase Urine WBC (Auto) Urine RBC (Auto) Ur Squamous Epith Cells Urine Bacteria Urine HCG, Qual 05/02/17 05/02/17 19:46 19:46 WBC RBC Hgb Hct MCV MCH MCHC RDW Plt Count MPV Neut % (Auto) Lymph % (Auto) [place] % (Auto) Eos % (Auto) Baso % (Auto) Neut # (Auto) Lymph # (Auto) [place] # (Auto) Eos # (Auto) Baso # (Auto) Retic Count 7.6 H D PT INR APTT Sodium Potassium Chloride Carbon Dioxide Anion Gap BUN Creatinine Est GFR ( Amer) Est GFR (Non-Af Amer) Random Glucose Calcium Total Bilirubin AST ALT Alkaline Phosphatase Total Protein Albumin Globulin Albumin/Globulin Ratio Urine Color Yellow Urine Clarity Hazy Urine pH 6.0 Ur Specific [place] 1.009 Urine Protein 1+ H Urine Glucose (UA) Normal Urine Ketones Negative Urine Blood 2+ H Urine Nitrate Negative Urine Bilirubin Negative Urine Urobilinogen Normal Ur Leukocyte Esterase 3+ H Urine WBC (Auto) 540 H Urine RBC (Auto) 19 H Ur Squamous Epith Cells 14 H Urine Bacteria Many H Urine HCG, Qual Negative
[2017-05-04] MEDS: DiphenhydrAMINE 50 mg/ml Inj IVP SCH ×8 (02:40→23:37)
[2017-05-04] MEDS: Linezolid 600 mg in D5W 300 ml 600 MG/300 ML BAG IVPB SCH ×2 (02:40→14:05)
[2017-05-04 07:32] LABS: BASO # 0.3 K/uL (0.0-0.2); BASO % 1.1 % (0.0-2.0); EOS % 3.9 % (0.0-4.0); LYMPH # 7.1 K/uL (1.0-4.3); LYMPH % 27.9 % (20.0-40.0); MEAN CELL VOLUME 85.7 fL (81.0-99.0); MEAN CORPUSCULAR HEMOGLOBIN 28.9 pg (27.0-31.0); MEAN CORPUSCULAR HGB CONC 33.8 g/dL (33.0-37.0); MEAN PLATELET VOLUME 9.1 fL (7.2-11.7); MONO # 2.5 K/uL (0.0-0.8); MONO % 9.7 % (0.0-10.0); NEUT # 14.7 K/uL (1.8-7.0); NEUT % 57.4 % (50.0-75.0); NRBC % 0.4 % (0.0-2.0); RBC 2.06 Mil/uL (3.80-5.20); RED CELL DISTRIBUTION WIDTH 16.9 % (11.5-14.5); WHITE BLOOD COUNT 25.6 K/uL (4.8-10.8)
[2017-05-04 07:50] LABS: ALB/GLOB RATIO 0.8 (1.0-2.1); ALBUMIN 3.6 g/dL (3.5-5.0); CALCIUM 7.9 mg/dl (8.6-10.4)
[2017-05-04 07:55] LABS: HEMOGLOBIN 5.9 g/dL (11.0-16.0)
[2017-05-04] MEDS: Pantoprazole 40 mg EC Tab PO SCH (09:57)
--- NOTE | 2017-05-04 10:03 | CP.PCM.PN ---
<Malcolm Leach S - Last Filed: 05/04/17 13:11> Subjective - Date & Time of Evaluation Date of Evaluation: 05/04/17 Time of Evaluation: 10:02 - Subjective Subjective: Progress Note for Dr. Hernandez's Service Pt seen and examined at bedside. She is laying comfortably. She was seen at bedside with Dr. Hernandez who explains that the patient has a longstanding hx of recurrent UTIs. This patient has a neurogenic bladder and requires straight cath , which lends to the frequent UTIs. She denies any acute complaints or changes overnight. Objective - Vital Signs/Intake and Output Vital Signs (last 24 hours): Temp Pulse Resp BP Pulse Ox 97.8 F 91 H 20 97/67 L 99 05/04/17 07:54 05/04/17 07:54 05/04/17 07:54 05/04/17 07:54 05/04/17 07:54 Intake and Output: 05/04/17 05/04/17 06:59 18:59 Intake Total 500 Balance 500 - Medications Medications: Current Medications Diphenhydramine HCl (Benadryl) 50 mg IVP Q3 [facility] Last Admin: 05/04/17 09:58 Dose: 50 mg Enoxaparin Sodium (Lovenox) 40 mg SC DAILY [facility] Last Admin: 05/03/17 10:46 Dose: Not Given Hydromorphone HCl (Dilaudid) 3 mg IVP Q3H [facility] Last Admin: 05/04/17 09:58 Dose: 3 mg Linezolid (Zyvox 600mg/300ml D5w) 600 mg in 300 mls @ 200 mls/hr IVPB Q12H [facility] PRN Reason: Protocol Last Admin: 05/04/17 02:40 Dose: 200 mls/hr Pantoprazole Sodium (Protonix Ec Tab) 40 mg PO DAILY [facility] Last Admin: 05/04/17 09:57 Dose: 40 mg - Labs Labs: 05/04/17 07:10 05/04/17 07:10 PT 15.3 SECONDS (9.7-12.2) H 05/02/17 19:46 INR 1.4 05/02/17 19:46 APTT 41 SECONDS (21-34) H 05/02/17 19:46 - Head Exam Head Exam: ATRAUMATIC, NORMOCEPHALIC - Eye Exam Eye Exam: EOMI, Normal appearance - ENT Exam ENT Exam: Mucous Membranes Moist - Respiratory Exam Respiratory Exam: Clear to Ausculation Bilateral, NORMAL BREATHING PATTERN - Cardiovascular Exam Cardiovascular Exam: REGULAR RHYTHM, +S1, +S2 - GI/Abdominal Exam GI & Abdominal Exam: Soft, Tenderness - Neurological Exam Neurological Exam: Alert, Awake, Oriented x3 - Skin Skin Exam: Dry, Warm Assessment and Plan - Assessment and Plan (Free Text) Plan: Sickle cell Crisis -folic acid 1mg PO daily -dilaudid 3mg IV q3hrs prn -lovenox 40mg sc daily -HGB below baseline (7.0) today at 5.9 will continue to monitor Transfusion recommendation from previous admissions suggests transfusion threshold of 5.7 Urinary tract infection -ID consult. Dr. Ruth Jones. recs appreciated. -Zyvox 600mg IV q12hr -Uro consult. Dr. Trey Matias. Recs appreciated. -Bladder u/s- B/L ureteral stents with moderate hydronephrosis R>L -Ucx (04/28/17)- vancomycin resistant E. faecium -WBC 25.6 -afebrile Neurogenic bladder -straight cath PRN; patient is able to do herself leukocytosis -WBC- 25.6 -likely secondary to UTI -will monitor -afebrile GI/DVT ppx -lovenox 40mg SC daily -protonix 40mg PO daily Case discussed with Dr. Hernandez. All management as per Dr. Hernandez. <Rosalina Hernandez - Last Filed: 05/04/17 17:29> Objective - Vital Signs/Intake and Output Vital Signs (last 24 hours): Temp Pulse Resp BP Pulse Ox 97.6 F 94 H 20 100/62 98 05/04/17 15:44 05/04/17 15:44 05/04/17 15:44 05/04/17 15:44 05/04/17 15:44 Intake and Output: 05/04/17 05/04/17 06:59 18:59 Intake Total 500 600 Balance 500 600 - Medications Medications: Current Medications Diphenhydramine HCl (Benadryl) 50 mg IVP Q3 [facility] Last Admin: 05/04/17 17:02 Dose: 50 mg Enoxaparin Sodium (Lovenox) 40 mg SC DAILY [facility] Last Admin: 05/04/17 10:04 Dose: Not Given Folic Acid (Folic Acid) 1 mg PO DAILY [facility] Hydromorphone HCl (Dilaudid) 3 mg IVP Q3H [facility] Last Admin: 05/04/17 17:03 Dose: 3 mg Linezolid (Zyvox 600mg/300ml D5w) 600 mg in 300 mls @ 200 mls/hr IVPB Q12H [facility] PRN Reason: Protocol Last Admin: 05/04/17 14:05 Dose: 200 mls/hr Pantoprazole Sodium (Protonix Ec Tab) 40 mg PO DAILY [facility] Last Admin: 05/04/17 09:57 Dose: 40 mg - Labs Labs: 05/04/17 07:10 05/04/17 07:10 PT 15.3 SECONDS (9.7-12.2) H 05/02/17 19:46 INR 1.4 05/02/17 19:46 APTT 41 SECONDS (21-34) H 05/02/17 19:46 Attending/Attestation - Attestation I have personally seen and examined this patient.: Yes I have fully participated in the care of the patient.: Yes I have reviewed all pertinent clinical information, including history, physical exam and plan: Yes
[2017-05-04] MEDS: Enoxaparin 40 mg Syringe SC SCH (10:04)
--- NOTE | 2017-05-04 12:19 | US ---
PROCEDURE: Ultrasound of the Kidneys and urinary bladder HISTORY: UTI /B/L STENTS COMPARISON: Abdominal ultrasound performed 07/29/12 TECHNIQUE: Sonogram of the kidneys. FINDINGS: RIGHT KIDNEY: Measures: 12.3 x 5.7 x 5.3 cm. Right ureteral stent. Moderate hydronephrosis LEFT KIDNEY: Measures: 13.1 x 7.5 x 7.3 cm. Left ureteral stent. Moderate hydronephrosis. OTHER FINDINGS: Prevoid urinary bladder volume 922.7 cc. Postvoid urinary bladder volume 817.3 cc. Bilateral ureteral jets are not identified. IMPRESSION: Bilateral ureteral stents and moderate hydronephrosis (right greater than left). Prevoid urinary bladder volume 922.7 cc. Postvoid urinary bladder volume 817.3 cc.
--- NOTE | 2017-05-04 17:31 | CP.PCM.PN ---
Subjective - Date & Time of Evaluation Date of Evaluation: 05/04/17 Time of Evaluation: 09:10 - Subjective Subjective: clinically same Objective - Vital Signs/Intake and Output Vital Signs (last 24 hours): Temp Pulse Resp BP Pulse Ox 97.6 F 94 H 20 100/62 98 05/04/17 15:44 05/04/17 15:44 05/04/17 15:44 05/04/17 15:44 05/04/17 15:44 Intake and Output: 05/04/17 05/04/17 06:59 18:59 Intake Total 500 600 Balance 500 600 - Medications Medications: Current Medications Diphenhydramine HCl (Benadryl) 50 mg IVP Q3 [facility] Last Admin: 05/04/17 17:02 Dose: 50 mg Enoxaparin Sodium (Lovenox) 40 mg SC DAILY [facility] Last Admin: 05/04/17 10:04 Dose: Not Given Folic Acid (Folic Acid) 1 mg PO DAILY [facility] Hydromorphone HCl (Dilaudid) 3 mg IVP Q3H [facility] Last Admin: 05/04/17 17:03 Dose: 3 mg Linezolid (Zyvox 600mg/300ml D5w) 600 mg in 300 mls @ 200 mls/hr IVPB Q12H [facility] PRN Reason: Protocol Last Admin: 05/04/17 14:05 Dose: 200 mls/hr Pantoprazole Sodium (Protonix Ec Tab) 40 mg PO DAILY [facility] Last Admin: 05/04/17 09:57 Dose: 40 mg - Labs Labs: 05/04/17 07:10 05/04/17 07:10 PT 15.3 SECONDS (9.7-12.2) H 05/02/17 19:46 INR 1.4 05/02/17 19:46 APTT 41 SECONDS (21-34) H 05/02/17 19:46 - Constitutional Appears: Well - Head Exam Head Exam: ATRAUMATIC, NORMAL INSPECTION, NORMOCEPHALIC - Eye Exam Eye Exam: EOMI, Normal appearance, PERRL Pupil Exam: NORMAL ACCOMODATION, PERRL - ENT Exam ENT Exam: Mucous Membranes Moist, Normal Exam - Neck Exam Neck Exam: Full ROM, Normal Inspection. absent: Lymphadenopathy - Respiratory Exam Respiratory Exam: Decreased Breath Sounds - Cardiovascular Exam Cardiovascular Exam: REGULAR RHYTHM, +S1, +S2 - GI/Abdominal Exam GI & Abdominal Exam: Soft, Diminished Bowel Sounds - Rectal Exam Rectal Exam: Deferred Assessment and Plan - Assessment and Plan (Free Text) Plan: Casein and discussed with staff and resident Continue same Management as ordered Sickle cell Crisis -folic acid 1mg PO daily -dilaudid 3mg IV q3hrs prn -lovenox 40mg sc daily -HGB below baseline (7.0) today at 5.9 will continue to monitor Transfusion recommendation from previous admissions suggests transfusion threshold of 5.7 Urinary tract infection -ID consult. Dr. Ruth Jones. recs appreciated. -Zyvox 600mg IV q12hr -Uro consult. Dr. Trey Matias. Recs appreciated. -Bladder u/s- B/L ureteral stents with moderate hydronephrosis R>L -Ucx (04/28/17)- vancomycin resistant E. faecium -WBC 25.6 -afebrile Neurogenic bladder -straight cath PRN; patient is able to do herself leukocytosis -WBC- 25.6 -likely secondary to UTI -will monitor -afebrile GI/DVT ppx -lovenox 40mg SC daily -protonix 40mg PO daily
--- NOTE | 2017-05-04 22:56 | CP.PCM.PN ---
Subjective - Date & Time of Evaluation Date of Evaluation: 05/04/17 Time of Evaluation: 22:56 - Subjective Subjective: CHIEF COMPLAINTS TODAY : AFEBRILE STATES FEELS CRAPPY. REPORTS NEUROGENIC BLADDER FROM OLD CVA. DOES INTERMITTENT ST. CATHETERIZATION HERSELF 2 OR 3TIMES /DAY ?RECURRENT UTI (DIFFERENT ORGS ) HX OF B/L STENTS. ROS. HEENT : N. Resp : No cough, wheezing ,pleuritic CP ,or hemoptysis Cardio : No anginal CP, PND, orthopnea, palpitation GI : No abd.pain, n/v ,diarrhea or GI bleeding . 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 Musculoskel : No joint swelling , Derm : No rash Psych : Normal affect. Ext : No swelling ,calf pain PE. Pt. is alert awake in no distress. V.S As noted in the chart Head ,ear nose,throat and eyes : Normal. Neck : Supple with normal carotids. Lungs: Clear air entry. Heart : S1 & S2 normal with S4. No murmur. Abd : Soft non tender with normal bowel sounds. Neuro : Moves all ext. with no localized deficit. Ext : No edema with intact pulses.Non tender calves Derm : No rashes or decubitus ulcer. LABS/RADIOLOGY: H/H LOW WBC HIGH Objective - Vital Signs/Intake and Output Vital Signs (last 24 hours): Temp Pulse Resp BP Pulse Ox 97.6 F 94 H 20 100/62 98 05/04/17 15:44 05/04/17 15:44 05/04/17 15:44 05/04/17 15:44 05/04/17 15:44 Intake and Output: 05/04/17 05/05/17 18:59 06:59 Intake Total 600 Balance 600 - Medications Medications: Current Medications Diphenhydramine HCl (Benadryl) 50 mg IVP Q3 [facility] Last Admin: 05/04/17 19:50 Dose: 50 mg Enoxaparin Sodium (Lovenox) 40 mg SC DAILY [facility] Last Admin: 05/04/17 10:04 Dose: Not Given Folic Acid (Folic Acid) 1 mg PO DAILY [facility] Hydromorphone HCl (Dilaudid) 3 mg IVP Q3H [facility] Last Admin: 05/04/17 20:26 Dose: 3 mg Linezolid (Zyvox 600mg/300ml D5w) 600 mg in 300 mls @ 200 mls/hr IVPB Q12H [facility] PRN Reason: Protocol Last Admin: 05/04/17 14:05 Dose: 200 mls/hr Pantoprazole Sodium (Protonix Ec Tab) 40 mg PO DAILY [facility] Last Admin: 05/04/17 09:57 Dose: 40 mg - Labs Labs: 05/04/17 07:10 05/04/17 07:10 PT 15.3 SECONDS (9.7-12.2) H 05/02/17 19:46 INR 1.4 05/02/17 19:46 APTT 41 SECONDS (21-34) H 05/02/17 19:46 Assessment and Plan (1) Sickle cell pain crisis Status: Acute (2) Leukocytosis Status: Acute (3) UTI (urinary tract infection) Status: Acute (4) Severe anemia Status: Acute (5) Neurogenic bladder Status: Acute - Assessment and Plan (Free Text) Plan: CONTINUE IV ZYVOX 600MG IV Q 12HRLY. F/U RENAL/PELVIC US/. EVALUATION . CASE DISCUSSED WITH DR. GONZALEZ.
[2017-05-05] MEDS: Linezolid 600 mg in D5W 300 ml 600 MG/300 ML BAG IVPB SCH ×2 (03:12→14:30)
[2017-05-05] MEDS: DiphenhydrAMINE 50 mg/ml Inj IVP SCH ×8 (03:12→22:17)
[2017-05-05 06:15] LABS: BASO # 0.2 K/uL (0.0-0.2); BASO % 0.9 % (0.0-2.0); EOS # 1.3 K/uL (0.0-0.7); EOS % 5.7 % (0.0-4.0); LYMPH # 5.8 K/uL (1.0-4.3); LYMPH % 24.8 % (20.0-40.0); MEAN CELL VOLUME 86.7 fL (81.0-99.0); MEAN CORPUSCULAR HEMOGLOBIN 28.4 pg (27.0-31.0); MEAN CORPUSCULAR HGB CONC 32.7 g/dL (33.0-37.0); MEAN PLATELET VOLUME 9.1 fL (7.2-11.7); MONO # 2.6 K/uL (0.0-0.8); MONO % 11.3 % (0.0-10.0); NEUT # 13.3 K/uL (1.8-7.0); NEUT % 57.3 % (50.0-75.0); NRBC % 0.5 % (0.0-2.0); RBC 1.83 Mil/uL (3.80-5.20); RED CELL DISTRIBUTION WIDTH 17.6 % (11.5-14.5); WHITE BLOOD COUNT 23.2 K/uL (4.8-10.8)
[2017-05-05 06:35] LABS: ALB/GLOB RATIO 0.7 (1.0-2.1); ALBUMIN 3.2 g/dL (3.5-5.0); CALCIUM 7.6 mg/dl (8.6-10.4)
[2017-05-05 06:36] LABS: HEMOGLOBIN 5.2 g/dL (11.0-16.0)
[2017-05-05] MEDS: Pantoprazole 40 mg EC Tab PO SCH (10:03)
[2017-05-05] MEDS: Enoxaparin 40 mg Syringe SC SCH (10:08)
--- NOTE | 2017-05-05 10:57 | CP.PCM.PN ---
Subjective - Date & Time of Evaluation Date of Evaluation: 05/05/17 Time of Evaluation: 10:54 - Subjective Subjective: Progress Note for Dr. Hernandez's Service Pt seen and examined at bedside. She is laying comfortably. She continues to have diffuse aches and pains. No acute complaints. Objective - Vital Signs/Intake and Output Vital Signs (last 24 hours): Temp Pulse Resp BP Pulse Ox 97.7 F 110 H 18 123/77 100 05/05/17 08:13 05/05/17 08:13 05/05/17 08:13 05/05/17 08:13 05/05/17 08:13 Intake and Output: 05/05/17 05/05/17 06:59 18:59 Intake Total 500 Balance 500 - Medications Medications: Current Medications Diphenhydramine HCl (Benadryl) 50 mg IVP Q3 [facility] Last Admin: 05/05/17 10:03 Dose: 50 mg Enoxaparin Sodium (Lovenox) 40 mg SC DAILY [facility] Last Admin: 05/05/17 10:08 Dose: Not Given Folic Acid (Folic Acid) 1 mg PO DAILY [facility] Last Admin: 05/05/17 10:03 Dose: 1 mg Hydromorphone HCl (Dilaudid) 3 mg IVP Q3H [facility] Last Admin: 05/05/17 10:03 Dose: 3 mg Linezolid (Zyvox 600mg/300ml D5w) 600 mg in 300 mls @ 200 mls/hr IVPB Q12H [facility] PRN Reason: Protocol Last Admin: 05/05/17 03:12 Dose: 200 mls/hr Pantoprazole Sodium (Protonix Ec Tab) 40 mg PO DAILY [facility] Last Admin: 05/05/17 10:03 Dose: 40 mg - Labs Labs: 05/05/17 06:09 05/05/17 06:09 PT 15.3 SECONDS (9.7-12.2) H 05/02/17 19:46 INR 1.4 05/02/17 19:46 APTT 41 SECONDS (21-34) H 05/02/17 19:46 - Head Exam Head Exam: ATRAUMATIC, NORMOCEPHALIC - Eye Exam Eye Exam: EOMI - ENT Exam ENT Exam: Mucous Membranes Moist - Respiratory Exam Respiratory Exam: Clear to Ausculation Bilateral, NORMAL BREATHING PATTERN - Cardiovascular Exam Cardiovascular Exam: REGULAR RHYTHM - GI/Abdominal Exam GI & Abdominal Exam: Soft, Tenderness (mild) - Neurological Exam Neurological Exam: Alert, Awake, Oriented x3 Assessment and Plan - Assessment and Plan (Free Text) Plan: Sickle cell Crisis -folic acid 1mg PO daily -dilaudid 3mg IV q3hrs prn -lovenox 40mg sc daily -HGB below baseline (7.0) today at 5.2 will continue to monitor Transfusion recommendation from previous admissions suggests transfusion threshold of 5.7 1u PRBC ordered Urinary tract infection -ID consult. Dr. Ruth Jones. recs appreciated. -Zyvox 600mg IV q12hr -Uro consult. Dr. Trey Matias. Recs appreciated. -Bladder u/s- B/L ureteral stents with moderate hydronephrosis R>L -Ucx (04/28/17)- vancomycin resistant E. faecium -Blood cx- no growth -WBC 23.6 -afebrile Neurogenic bladder -straight cath PRN; patient is able to do herself leukocytosis -WBC- 23.6 -likely secondary to UTI -will monitor -afebrile GI/DVT ppx -lovenox 40mg SC daily -protonix 40mg PO daily Case discussed with Dr. Hernandez. All management as per Dr. Hernandez.
--- NOTE | 2017-05-05 12:06 | CP.PCM.PN ---
Subjective - Date & Time of Evaluation Date of Evaluation: 05/05/17 Time of Evaluation: 12:04 - Subjective Subjective: CONSENT FOR BLOOD TRANSFUSION DISCUSSED AND SIGNED WITH PT AND PRIMARY RN YOKO. MED RESIDENT, DR. BECKMAN, ORDERED TRANSFUSION ON 1 UNIT PRBC FOR TODAY HGB IS 5.2. PT HAS HAD TRANSFUSIONS BEFORE WITHOUT ANY REACTION. PT IN AGREEMENT FOR TRANSFUSION AND VERBALIZES UNDERSTANDING FOR THE NEED OF IT AND REACTION S/S. NO FURTHER ORDERS. Objective - Vital Signs/Intake and Output Vital Signs (last 24 hours): Temp Pulse Resp BP Pulse Ox 97.7 F 110 H 18 123/77 100 05/05/17 08:13 05/05/17 08:13 05/05/17 08:13 05/05/17 08:13 05/05/17 08:13 Intake and Output: 05/05/17 05/05/17 06:59 18:59 Intake Total 500 Balance 500 - Medications Medications: Current Medications Diphenhydramine HCl (Benadryl) 50 mg IVP Q3 [facility] Last Admin: 05/05/17 10:03 Dose: 50 mg Enoxaparin Sodium (Lovenox) 40 mg SC DAILY [facility] Last Admin: 05/05/17 10:08 Dose: Not Given Folic Acid (Folic Acid) 1 mg PO DAILY [facility] Last Admin: 05/05/17 10:03 Dose: 1 mg Hydromorphone HCl (Dilaudid) 3 mg IVP Q3H [facility] Last Admin: 05/05/17 10:03 Dose: 3 mg Linezolid (Zyvox 600mg/300ml D5w) 600 mg in 300 mls @ 200 mls/hr IVPB Q12H [facility] PRN Reason: Protocol Last Admin: 05/05/17 03:12 Dose: 200 mls/hr Pantoprazole Sodium (Protonix Ec Tab) 40 mg PO DAILY [facility] Last Admin: 05/05/17 10:03 Dose: 40 mg - Labs Labs: 05/05/17 06:09 05/05/17 06:09 PT 15.3 SECONDS (9.7-12.2) H 05/02/17 19:46 INR 1.4 05/02/17 19:46 APTT 41 SECONDS (21-34) H 05/02/17 19:46
--- NOTE | 2017-05-05 14:27 | CP.PCM.PN ---
Subjective - Date & Time of Evaluation Date of Evaluation: 05/05/17 Time of Evaluation: 14:27 - Subjective Subjective: CHIEF COMPLAINTS TODAY : AFEBRILE STATES FEELS CRAPPY. H/H DROPPED FURTHER S/P I UNIT PRBC REPORTS NEUROGENIC BLADDER FROM OLD CVA. DOES INTERMITTENT ST. CATHETERIZATION HERSELF 2 OR 3TIMES /DAY ?RECURRENT UTI (DIFFERENT ORGS ) HX OF B/L STENTS. ROS. HEENT : N. Resp : No cough, wheezing ,pleuritic CP ,or hemoptysis Cardio : No anginal CP, PND, orthopnea, palpitation GI : No abd.pain, n/v ,diarrhea or GI bleeding . 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 Musculoskel : No joint swelling , Derm : No rash Psych : Normal affect. Ext : No swelling ,calf pain PE. Pt. is alert awake in no distress. V.S As noted in the chart Head ,ear nose,throat and eyes : Normal. Neck : Supple with normal carotids. Lungs: Clear air entry. Heart : S1 & S2 normal with S4. No murmur. Abd : Soft non tender with normal bowel sounds. Neuro : Moves all ext. with no localized deficit. Ext : No edema with intact pulses.Non tender calves Derm : No rashes or decubitus ulcer. LABS/RADIOLOGY: bladder ultrasound noted. Prevoid bladder volume 19 20 cc Post void bladder volume 77.7 cc .No calculi, no hydro-, no renal cysts. H/H LOW 5.2/17.6 WBC HIGH CREAT 1.7/BUN 27 LFT ABN -HEMOLYSIS Objective - Vital Signs/Intake and Output Vital Signs (last 24 hours): Temp Pulse Resp BP Pulse Ox 98.2 F 70 18 114/66 100 05/05/17 13:38 05/05/17 13:38 05/05/17 13:38 05/05/17 13:38 05/05/17 08:13 Intake and Output: 05/05/17 05/05/17 06:59 18:59 Intake Total 500 0 Balance 500 0 - Medications Medications: Current Medications Diphenhydramine HCl (Benadryl) 50 mg IVP Q3 [facility] Last Admin: 05/05/17 13:19 Dose: 50 mg Enoxaparin Sodium (Lovenox) 40 mg SC DAILY [facility] Last Admin: 05/05/17 10:08 Dose: Not Given Folic Acid (Folic Acid) 1 mg PO DAILY [facility] Last Admin: 05/05/17 10:03 Dose: 1 mg Hydromorphone HCl (Dilaudid) 3 mg IVP Q3H [facility] Last Admin: 05/05/17 13:20 Dose: 3 mg Linezolid (Zyvox 600mg/300ml D5w) 600 mg in 300 mls @ 200 mls/hr IVPB Q12H [facility] PRN Reason: Protocol Last Admin: 05/05/17 03:12 Dose: 200 mls/hr Pantoprazole Sodium (Protonix Ec Tab) 40 mg PO DAILY [facility] Last Admin: 05/05/17 10:03 Dose: 40 mg - Labs Labs: 05/05/17 06:09 05/05/17 06:09 PT 15.3 SECONDS (9.7-12.2) H 05/02/17 19:46 INR 1.4 05/02/17 19:46 APTT 41 SECONDS (21-34) H 05/02/17 19:46 Assessment and Plan (1) Sickle cell pain crisis Status: Acute (2) Leukocytosis Status: Acute (3) UTI (urinary tract infection) Status: Acute (4) Severe anemia Status: Acute (5) Neurogenic bladder Status: Acute - Assessment and Plan (Free Text) Plan: CONTINUE IV ZYVOX 600MG IV Q 12HRLY.05/03/17 x 8days.. EVALUATION .
--- NOTE | 2017-05-05 16:18 | CP.PCM.CON ---
Past Patient History - Past Medical History & Family History Past Medical History?: Yes - Past Social History Smoking Status: Never Smoked - CARDIAC Hx Atrial Fibrillation: No Hx Cardia Arrhythmia: No Hx Congestive Heart Failure: No Hx Hypercholesterolemia: No Hx Hypertension: No Hx Mitral Valve Prolapse: No Hx Pacemaker: No Hx Peripheral Edema: No - PULMONARY Hx Asthma: No Hx Bronchitis: No Hx Chronic Obstructive Pulmonary Disease (COPD): No Hx Emphysema: No Hx Pneumonia: No Hx Pulmonary Embolism: No Hx Sleep Apnea: No - NEUROLOGICAL Hx Alzheimer's Disease: No Hx Dementia: No Hx Migraine: Yes Hx Multiple Sclerosis: No Hx Parkinson's Disease: No Hx Seizures: No Hx Transient Ischemic Attacks (TIA): No - HEENT Hx HEENT Problems: No Hx Blind: No Hx Cataracts: No Hx Deafness: No Hx Difficulty Chewing: No Hx Epistaxis: No Hx Glaucoma: No Hx Macular Degeneration: No - RENAL Hx Chronic Kidney Disease: No Hx Kidney Stones: No - ENDOCRINE/METABOLIC Hx Hyperthyroidism: No Hx Hypothyroidism: No - HEMATOLOGICAL/ONCOLOGICAL Hx Anemia: Yes Hx Human Immunodeficiency Virus (HIV): No Hx Sickle Cell Disease: Yes - INTEGUMENTARY Hx Dermatological Problems: No - MUSCULOSKELETAL/RHEUMATOLOGICAL Hx Falls: No - GASTROINTESTINAL Hx Gastrointestinal Disorders: No - GENITOURINARY/GYNECOLOGICAL Hx Genitourinary Disorders: No - PSYCHIATRIC Hx Substance Use: No - SURGICAL HISTORY Hx Surgeries: Yes Hx Cholecystectomy: Yes (2003) - ANESTHESIA Hx Anesthesia: Yes Hx Anesthesia Reactions: No Hx Malignant Hyperthermia: No Has any member of the family had a problem w/ anesthesia?: No Meds Allergies/Adverse Reactions: Allergies Allergy/AdvReac Type Severity Reaction Status Date / Time droperidol Allergy Verified 05/02/17 17:54 tramadol Allergy Verified 05/02/17 17:54 inapsine Allergy RASH Uncoded 05/02/17 17:54 - Medications Medications: Current Medications Diphenhydramine HCl (Benadryl) 50 mg IVP Q3 [facility] Last Admin: 05/05/17 13:19 Dose: 50 mg Enoxaparin Sodium (Lovenox) 40 mg SC DAILY [facility] Last Admin: 05/05/17 10:08 Dose: Not Given Folic Acid (Folic Acid) 1 mg PO DAILY [facility] Last Admin: 05/05/17 10:03 Dose: 1 mg Hydromorphone HCl (Dilaudid) 3 mg IVP Q3H [facility] Last Admin: 05/05/17 13:20 Dose: 3 mg Linezolid (Zyvox 600mg/300ml D5w) 600 mg in 300 mls @ 200 mls/hr IVPB Q12H [facility] PRN Reason: Protocol Last Admin: 05/05/17 03:12 Dose: 200 mls/hr Pantoprazole Sodium (Protonix Ec Tab) 40 mg PO DAILY [facility] Last Admin: 05/05/17 10:03 Dose: 40 mg Results - Vital Signs Recent Vital Signs: Last Vital Signs Temp 98 F 05/05/17 15:40 Pulse 105 H 05/05/17 15:40 Resp 20 05/05/17 15:40 BP 109/73 05/05/17 15:40 Pulse Ox 100 05/05/17 08:13 - Labs Result Diagrams: 05/05/17 06:09 05/05/17 06:09 Labs: Laboratory Results - last 24 hr 05/04/17 05/05/17 05/05/17 08:37 06:09 06:09 WBC 23.2 H RBC 1.83 L Hgb 5.2 L* Hct 15.9 L MCV 86.7 MCH 28.4 MCHC 32.7 L RDW 17.6 H Plt Count 191 MPV 9.1 Neut % (Auto) 57.3 Lymph % (Auto) 24.8 [place] % (Auto) 11.3 H Eos % (Auto) 5.7 H Baso % (Auto) 0.9 Neut # (Auto) 13.3 H Lymph # (Auto) 5.8 H [place] # (Auto) 2.6 H Eos # (Auto) 1.3 H Baso # (Auto) 0.2 Sodium 138 Potassium 4.7 Chloride 107 Carbon Dioxide 22 Anion Gap 14 BUN 22 H Creatinine 1.4 H Est GFR ( Amer) 51 Est GFR (Non-Af Amer) 42 Random Glucose 97 Calcium 7.6 L Total Bilirubin 1.9 H AST 144 H ALT 96 H Alkaline Phosphatase 149 H Total Protein 7.6 Albumin 3.2 L Globulin 4.4 H Albumin/Globulin Ratio 0.7 L Blood Type O POSITIVE Antibody Screen Negative Assessment & Plan - Assessment and Plan (Free Text) Assessment: IMP: Sickle cell disease 'Hx of Neurogenic Bladder Hx of ureteral stent insertion 2015 full note t/f - Date & Time Date: 05/05/17 Time: 09:35
--- NOTE | 2017-05-05 18:36 | CP.PCM.PN ---
Subjective - Date & Time of Evaluation Date of Evaluation: 05/05/17 Time of Evaluation: 08:30 - Subjective Subjective: clinically same Objective - Vital Signs/Intake and Output Vital Signs (last 24 hours): Temp Pulse Resp BP Pulse Ox 98.1 F 104 H 20 109/73 97 05/05/17 16:32 05/05/17 16:32 05/05/17 16:32 05/05/17 16:32 05/05/17 16:32 Intake and Output: 05/05/17 05/05/17 06:59 18:59 Intake Total 500 1250 Balance 500 1250 - Medications Medications: Current Medications Diphenhydramine HCl (Benadryl) 50 mg IVP Q3 [facility] Last Admin: 05/05/17 16:23 Dose: 50 mg Enoxaparin Sodium (Lovenox) 40 mg SC DAILY [facility] Last Admin: 05/05/17 10:08 Dose: Not Given Folic Acid (Folic Acid) 1 mg PO DAILY [facility] Last Admin: 05/05/17 10:03 Dose: 1 mg Hydromorphone HCl (Dilaudid) 3 mg IVP Q3H [facility] Last Admin: 05/05/17 16:23 Dose: 3 mg Linezolid (Zyvox) 600 mg PO Q12H [facility] Pantoprazole Sodium (Protonix Ec Tab) 40 mg PO DAILY [facility] Last Admin: 05/05/17 10:03 Dose: 40 mg - Labs Labs: 05/05/17 06:09 05/05/17 06:09 PT 15.3 SECONDS (9.7-12.2) H 05/02/17 19:46 INR 1.4 05/02/17 19:46 APTT 41 SECONDS (21-34) H 05/02/17 19:46 - Constitutional Appears: Well - Head Exam Head Exam: ATRAUMATIC, NORMAL INSPECTION, NORMOCEPHALIC - Eye Exam Eye Exam: EOMI, Normal appearance, PERRL Pupil Exam: NORMAL ACCOMODATION, PERRL - ENT Exam ENT Exam: Mucous Membranes Moist, Normal Exam - Neck Exam Neck Exam: Full ROM, Normal Inspection. absent: Lymphadenopathy - Respiratory Exam Respiratory Exam: Decreased Breath Sounds - Cardiovascular Exam Cardiovascular Exam: REGULAR RHYTHM, +S1, +S2 - GI/Abdominal Exam GI & Abdominal Exam: Soft, Diminished Bowel Sounds - Rectal Exam Rectal Exam: Deferred
[2017-05-06] MEDS: DiphenhydrAMINE 50 mg/ml Inj IVP SCH ×6 (01:35→16:46)
[2017-05-06] MEDS: Enoxaparin 40 mg Syringe SC SCH (09:45)
[2017-05-06] MEDS: Pantoprazole 40 mg EC Tab PO SCH (09:45)
[2017-05-06 10:32] LABS: BASO # 0.2 K/uL (0.0-0.2); BASO % 0.7 % (0.0-2.0); EOS # 1.1 K/uL (0.0-0.7); LYMPH # 4.4 K/uL (1.0-4.3); LYMPH % 20.5 % (20.0-40.0); MEAN CELL VOLUME 87.6 fL (81.0-99.0); MEAN CORPUSCULAR HEMOGLOBIN 29.2 pg (27.0-31.0); MEAN CORPUSCULAR HGB CONC 33.3 g/dL (33.0-37.0); MEAN PLATELET VOLUME 9.5 fL (7.2-11.7); MONO % 9.1 % (0.0-10.0); NEUT % 64.7 % (50.0-75.0); NRBC % 0.5 % (0.0-2.0); RBC 2.57 Mil/uL (3.80-5.20); RED CELL DISTRIBUTION WIDTH 17.3 % (11.5-14.5); WHITE BLOOD COUNT 21.6 K/uL (4.8-10.8)
[2017-05-06 10:37] LABS: HEMOGLOBIN 7.5 g/dL (11.0-16.0)
--- NOTE | 2017-05-06 10:47 | CP.PCM.PN ---
<Tonia Montejo - Last Filed: 05/06/17 18:31> Subjective - Date & Time of Evaluation Date of Evaluation: 05/06/17 Time of Evaluation: 09:45 - Subjective Subjective: PGY-[address] Hernandez Patient seen and examined by bedside. No acute events reported overnight. Patient continues to complain of pain, managed well by pain medication. Patient denies fever, chills, shortness of breath, nausea, vomiting, or diarrhea. Objective - Vital Signs/Intake and Output Vital Signs (last 24 hours): Temp Pulse Resp BP Pulse Ox 98.2 F 102 H 18 119/74 98 05/06/17 08:15 05/06/17 08:15 05/06/17 08:15 05/06/17 08:15 05/06/17 08:15 - Medications Medications: Current Medications Diphenhydramine HCl (Benadryl) 50 mg IVP Q3 [facility] Last Admin: 05/06/17 08:06 Dose: 50 mg Enoxaparin Sodium (Lovenox) 40 mg SC DAILY [facility] Last Admin: 05/06/17 09:45 Dose: Not Given Folic Acid (Folic Acid) 1 mg PO DAILY [facility] Last Admin: 05/06/17 09:45 Dose: 1 mg Hydromorphone HCl (Dilaudid) 3 mg IVP Q3H [facility] Last Admin: 05/06/17 08:06 Dose: 3 mg Linezolid (Zyvox) 600 mg PO Q12H [facility] Last Admin: 05/06/17 06:03 Dose: 600 mg Pantoprazole Sodium (Protonix Ec Tab) 40 mg PO DAILY [facility] Last Admin: 05/06/17 09:45 Dose: 40 mg - Labs Labs: 05/06/17 10:27 05/05/17 06:09 PT 15.3 SECONDS (9.7-12.2) H 05/02/17 19:46 INR 1.4 05/02/17 19:46 APTT 41 SECONDS (21-34) H 05/02/17 19:46 - Constitutional Appears: Non-toxic, No Acute Distress - Head Exam Head Exam: ATRAUMATIC - Eye Exam Eye Exam: EOMI, Normal appearance Pupil Exam: NORMAL ACCOMODATION - ENT Exam ENT Exam: Mucous Membranes Moist - Neck Exam Neck Exam: Normal Inspection - Respiratory Exam Respiratory Exam: Clear to Ausculation Bilateral, NORMAL BREATHING PATTERN - Cardiovascular Exam Cardiovascular Exam: REGULAR RHYTHM, +S1, +S2. absent: Murmur - GI/Abdominal Exam GI & Abdominal Exam: Soft, Normal Bowel Sounds - Neurological Exam Neurological Exam: Alert, Awake, Oriented x3 - Psychiatric Exam Psychiatric exam: Normal Affect, Normal Mood - Skin Skin Exam: Warm Assessment and Plan - Assessment and Plan (Free Text) Assessment: Sickle cell Crisis -folic acid 1mg PO daily -dilaudid 3mg IV q3hrs prn -lovenox 40mg sc daily -HGB 7.5, s/p 1 unit PRBC Urinary tract infection -ID consult. Dr. Ruth Jones. recs appreciated. -Zyvox 600mg PO q12hr, will continue for 3 more days -Uro consult. Dr. Trey Matias. Recs appreciated. -Bladder u/s- B/L ureteral stents with moderate hydronephrosis R>L -Ucx (04/28/17)- vancomycin resistant E. faecium -Blood cx- no growth -Patient will follow up with Dr. Matias as outpatient Neurogenic bladder -straight cath PRN; patient is able to do herself GI/DVT ppx -lovenox 40mg SC daily -protonix 40mg PO daily Case discussed with Dr. Hernandez Patient is medically stable to be discharged per Dr. Hernandez <Rosalina Hernandez S - Last Filed: 05/06/17 22:15> Objective - Vital Signs/Intake and Output Vital Signs (last 24 hours): Temp Pulse Resp BP Pulse Ox 98.0 F 98 H 20 117/80 97 05/06/17 15:31 05/06/17 15:31 05/06/17 15:31 05/06/17 15:31 05/06/17 15:31 Intake and Output: 05/06/17 05/07/17 18:59 06:59 Intake Total 400 Balance 400 - Labs Labs: 05/06/17 10:27 05/06/17 10:27 PT 15.3 SECONDS (9.7-12.2) H 05/02/17 19:46 INR 1.4 05/02/17 19:46 APTT 41 SECONDS (21-34) H 05/02/17 19:46 Attending/Attestation - Attestation I have personally seen and examined this patient.: Yes I have fully participated in the care of the patient.: Yes I have reviewed all pertinent clinical information, including history, physical exam and plan: Yes Notes (Text): 05/06/17 22:15 case john yolanda mendez staff adn jerodietkerrie adm for scd s/p p[[id number]
[2017-05-06 10:48] LABS: ALB/GLOB RATIO 0.6 (1.0-2.1); ALBUMIN 3.2 g/dL (3.5-5.0)
--- NOTE | 2017-05-06 13:24 | CP.PCM.PN ---
Subjective - Date & Time of Evaluation Date of Evaluation: 05/06/17 Time of Evaluation: 13:24 - Subjective Subjective: CHIEF COMPLAINTS TODAY : AFEBRILE STATES FEELS BETTER AFTER BLOOD TRANSFUSION.. RESTING COMFORTABLY. SEEN BY NIKO MCCRAYR HEENT : N. Resp : No cough, wheezing ,pleuritic CP ,or hemoptysis Cardio : No anginal CP, PND, orthopnea, palpitation GI : No abd.pain, n/v ,diarrhea or GI bleeding . 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 Musculoskel : No joint swelling , Derm : No rash Psych : Normal affect. Ext : No swelling ,calf pain PE. Pt. is alert awake in no distress. V.S As noted in the chart Head ,ear nose,throat and eyes : Normal. Neck : Supple with normal carotids. Lungs: Clear air entry. Heart : S1 & S2 normal with S4. No murmur. Abd : Soft non tender with normal bowel sounds. Neuro : Moves all ext. with no localized deficit. Ext : No edema with intact pulses.Non tender calves Derm : No rashes or decubitus ulcer. LABS/RADIOLOGY: bladder ultrasound noted. Prevoid bladder volume 19 20 cc Post void bladder volume 77.7 cc .No calculi, no hydro-, no renal cysts. LFT IMPROVING Objective - Vital Signs/Intake and Output Vital Signs (last 24 hours): Temp Pulse Resp BP Pulse Ox 98.2 F 102 H 18 119/74 98 05/06/17 08:15 05/06/17 08:15 05/06/17 08:15 05/06/17 08:15 05/06/17 08:15 - Medications Medications: Current Medications Diphenhydramine HCl (Benadryl) 50 mg IVP Q3 [facility] Last Admin: 05/06/17 11:17 Dose: 50 mg Enoxaparin Sodium (Lovenox) 40 mg SC DAILY [facility] Last Admin: 05/06/17 09:45 Dose: Not Given Folic Acid (Folic Acid) 1 mg PO DAILY [facility] Last Admin: 05/06/17 09:45 Dose: 1 mg Hydromorphone HCl (Dilaudid) 3 mg IVP Q3H [facility] Last Admin: 05/06/17 11:18 Dose: 3 mg Linezolid (Zyvox) 600 mg PO Q12H [facility] Last Admin: 05/06/17 06:03 Dose: 600 mg Pantoprazole Sodium (Protonix Ec Tab) 40 mg PO DAILY [facility] Last Admin: 05/06/17 09:45 Dose: 40 mg - Labs Labs: 05/06/17 10:27 05/06/17 10:27 PT 15.3 SECONDS (9.7-12.2) H 05/02/17 19:46 INR 1.4 05/02/17 19:46 APTT 41 SECONDS (21-34) H 05/02/17 19:46 Assessment and Plan (1) Sickle cell pain crisis Status: Acute (2) Leukocytosis Status: Acute (3) UTI (urinary tract infection) Status: Acute (4) Severe anemia Status: Acute (5) Neurogenic bladder Status: Acute - Assessment and Plan (Free Text) Plan: CONTINUE IV ZYVOX 600MG IV Q 12HRLY X 3 DAYS MORE. fOLLOW-UP REPEAT CLEAN CATCH ua AND URINE CULTURE pATIENT TO FOLLOW UP CLOSELY WITH PMD/AND . cASE DISCUSSED WITH STAFF AND RESIDENT.
--- NOTE | 2017-05-06 14:44 | CP.PCM.PN ---
Subjective - Date & Time of Evaluation Date of Evaluation: 05/06/17 Time of Evaluation: 08:20 - Subjective Subjective: clinically same Objective - Vital Signs/Intake and Output Vital Signs (last 24 hours): Temp Pulse Resp BP Pulse Ox 98.2 F 102 H 18 119/74 98 05/06/17 08:15 05/06/17 08:15 05/06/17 08:15 05/06/17 08:15 05/06/17 08:15 Intake and Output: 05/06/17 05/06/17 06:59 18:59 Intake Total 400 Balance 400 - Medications Medications: Current Medications Diphenhydramine HCl (Benadryl) 50 mg IVP Q3 [facility] Last Admin: 05/06/17 11:17 Dose: 50 mg Enoxaparin Sodium (Lovenox) 40 mg SC DAILY [facility] Last Admin: 05/06/17 09:45 Dose: Not Given Folic Acid (Folic Acid) 1 mg PO DAILY [facility] Last Admin: 05/06/17 09:45 Dose: 1 mg Hydromorphone HCl (Dilaudid) 3 mg IVP Q3H [facility] Last Admin: 05/06/17 11:18 Dose: 3 mg Linezolid (Zyvox) 600 mg PO Q12H [facility] Last Admin: 05/06/17 06:03 Dose: 600 mg Pantoprazole Sodium (Protonix Ec Tab) 40 mg PO DAILY [facility] Last Admin: 05/06/17 09:45 Dose: 40 mg - Labs Labs: 05/06/17 10:27 05/06/17 10:27 PT 15.3 SECONDS (9.7-12.2) H 05/02/17 19:46 INR 1.4 05/02/17 19:46 APTT 41 SECONDS (21-34) H 05/02/17 19:46 Assessment and Plan - Assessment and Plan (Free Text) Plan: Sickle cell Crisis -folic acid 1mg PO daily -dilaudid 3mg IV q3hrs prn -lovenox 40mg sc daily -HGB 7.5, s/p 1 unit PRBC Urinary tract infection -ID consult. Dr. Ruth Jones. recs appreciated. -Zyvox 600mg PO q12hr, will continue for 3 more days -Uro consult. Dr. Trey Matias. Recs appreciated. -Bladder u/s- B/L ureteral stents with moderate hydronephrosis R>L -Ucx (04/28/17)- vancomycin resistant E. faecium -Blood cx- no growth -Patient will follow up with Dr. Matias as outpatient
[2017-05-06 16:32] VITALS: BP 117/80; PULSE 98; RESP 20; TEMP 98; O2SAT 97
[2017-05-06 16:40] LABS: URINE BACTERIA MANY (<OCC); URINE BILIRUBIN NEGATIVE (NEGATIVE); URINE BLOOD 2+ (NEGATIVE); URINE CLARITY Hazy (Clear); URINE GLUCOSE (UA) NORMAL (Normal); URINE LEUKOCYTE ESTERASE 3+ Leu/uL (Negative); URINE PROTEIN 2+ mg/dL (NEGATIVE); URINE UROBILINOGEN NORMAL mg/dL (0.2-1.0)
[2017-05-06 16:43] LABS: URINE COLOR YELLOW (YELLOW)
[2017-05-06] MEDS ORDERED: HYDROmorphone 1 mg/ml ISec IVP SCH (16:45)
== END 2017-05-06 20:43 | disposition home or self-care (01) | DRG 812 ==
LOC: C.ER 17:27 → C.9E 20:15 → C.3T 22:07 → C.9E 22:07 → C.5S 05-03 06:54
PROVIDERS: ADMIT Internal Medicine Nephrology; ATTEND Internal Medicine Nephrology
DX: D57.00 Hb-SS disease with crisis, unspecified (principal); N39.0 Urinary tract infection, site not specified; N31.9 Neuromuscular dysfunction of bladder, unspecified; N92.6 Irregular menstruation, unspecified; B96.20 Unspecified Escherichia coli [E. coli] as the cause of diseases classified elsewhere; Z16.21 Resistance to vancomycin; I69.398 Other sequelae of cerebral infarction; Z87.440 Personal history of urinary (tract) infections; Z90.49 Acquired absence of other specified parts of digestive tract

== ENCOUNTER 2017-05-10 09:45 | Emergency (ER) | payer MEDICARE ==
[2017-05-10 09:45] VITALS: BMI 22.4
[2017-05-10 09:55] VITALS: O2SAT 100
[2017-05-10] MEDS ORDERED: Sodium Chloride 0.9% 1,000 ML IV ONE (10:38)
[2017-05-10 10:49] LABS: BASO # 0.2 K/uL (0.0-0.2); BASO % 1.2 % (0.0-2.0); EOS # 0.7 K/uL (0.0-0.7); EOS % 4.1 % (0.0-4.0); LYMPH # 3.7 K/uL (1.0-4.3); LYMPH % 20.8 % (20.0-40.0); MEAN CELL VOLUME 86.5 fL (81.0-99.0); MEAN CORPUSCULAR HGB CONC 33.6 g/dL (33.0-37.0); MONO # 1.3 K/uL (0.0-0.8); MONO % 7.2 % (0.0-10.0); NEUT # 11.7 K/uL (1.8-7.0); NEUT % 66.7 % (50.0-75.0); NRBC % 0.1 % (0.0-2.0); RBC 2.77 Mil/uL (3.80-5.20); RED CELL DISTRIBUTION WIDTH 17.9 % (11.5-14.5); WHITE BLOOD COUNT 17.6 K/uL (4.8-10.8)
[2017-05-10 11:04] LABS: BLOOD UREA NITROGEN 19 mg/dL (7-17); GFR AFRICAN-AMERICAN > 60; GFR NON-AFRICAN AMERICAN 56
[2017-05-10 11:05] LABS: ALB/GLOB RATIO 0.6 (1.0-2.1); ALBUMIN 3.7 g/dL (3.5-5.0); ALT/SGPT 64 U/L (9-52); AST/SGOT 88 U/L (14-36); CALCIUM 8.3 mg/dl (8.6-10.4)
--- NOTE | 2017-05-10 11:05 | RAD ---
PROCEDURE: CHEST RADIOGRAPH, 1 VIEW HISTORY: SOB COMPARISON: 04/08/2017 FINDINGS: LUNGS: Clear. PLEURA: No pneumothorax or pleural fluid seen. CARDIOVASCULAR: Normal heart size. No congestive change. Right central venous infusion port. OSSEOUS STRUCTURES: Moreira rods. Mild thoracic dextroscoliosis. Deformity of right lateral chest wall, unchanged. VISUALIZED UPPER ABDOMEN: Right ureteral stent noted. OTHER FINDINGS: None. IMPRESSION: No acute infiltrate.
[2017-05-10 11:07] LABS: HCG,QUALITATIVE URINE NEGATIVE (NEGATIVE)
[2017-05-10 11:10] LABS: INR 1.3; PROTHROMBIN TIME 15.2 SECONDS (9.7-12.2)
[2017-05-10 11:13] LABS: SQUAMOUS EPITHIAL 7 /hpf (0-5); URINE BACTERIA OCC (<OCC); URINE BILIRUBIN NEGATIVE (NEGATIVE); URINE BLOOD 2+ (NEGATIVE); URINE CLARITY Turbid (Clear); URINE COLOR Amber (YELLOW); URINE GLUCOSE (UA) NORMAL (Normal); URINE LEUKOCYTE ESTERASE 3+ Leu/uL (Negative); URINE PROTEIN 1+ mg/dL (NEGATIVE); URINE UROBILINOGEN NORMAL mg/dL (0.2-1.0); WBC CLUMPS MANY /hpf
[2017-05-10 11:28] LABS: BARBITURATES, UR NEGATIVE (NEGATIVE); BENZODIAZEPINES, UR NEGATIVE (NEGATIVE); OPIATES, UR NEGATIVE (NEGATIVE); PHENCYCLIDINE, UR NEGATIVE (NEGATIVE)
--- NOTE | 2017-05-10 12:04 | C.PDOC ---
History Of Present Illness 36 y/o female presents to the ED complaining of chronic pain to her back and bilateral thighs, worsened for past 3 days. Patient was admitted here for sick cell crisis on 05/02/17 and discharged home with no pain meds. Now complaining of malaise but patient is otherwise eating and drinking well. Pt with history of neurogenic bladder, self catheterizes at home. PMD: Alba Hernandez Time Seen by Provider: 05/10/17 10:01 Chief Complaint (Nursing): Pain, Chronic History Per: Patient History/Exam Limitations: no limitations Onset/Duration Of Symptoms: Worse Since (3 days ago) Current Symptoms Are (Timing): Still Present Severity: Moderate Pain Scale Rating Of: 8 Past Medical History Reviewed: Historical Data, Nursing Documentation, Vital Signs Vital Signs: Last Vital Signs Temp 97.4 F L 05/10/17 12:08 Pulse 93 H 05/10/17 12:08 Resp 15 05/10/17 12:08 BP 119/83 05/10/17 12:08 Pulse Ox 100 05/10/17 12:43 - Medical History PMH: Anemia, Migraine, Sickle Cell Disease Denies: Alzheimer's Disease, Asthma, Atrial Fibrillation, Bronchitis, Cardia Arrhythmia, CHF, COPD, Dementia, Emphysema, HIV, HTN, Hypercholesterolemia, Hyperthyroidism, Hypothyroidism, Kidney Stones, Mitral Valve Prolapse, Multiple Sclerosis, Parkinson's Disease, Peripheral Edema, Pneumonia, Pulmonary Embolism , Chronic Kidney Disease, Seizures, Sleep Apnea, TIA Surgical History: Cholecystectomy (2003) Denies: Pacemaker - [facility] Procedures PACKED CELL TRANSFUSION (07/26/12) TETANUS TOXOID ADMINIST (11/14/12) TRANSFUSE NONAUT RED BLOOD CELLS IN PERIPH VEIN, PERC (04/08/17) Family History: States: No Known Family Hx - Social History Hx Tobacco Use: No Hx Alcohol Use: No Hx Substance Use: No - Immunization History Hx Tetanus Toxoid Vaccination: Yes Hx Influenza Vaccination: Yes Hx Pneumococcal Vaccination: Yes Review Of Systems Except As Marked, All Systems Reviewed And Found Negative. Constitutional: Positive for: Malaise. Negative for: Fever Gastrointestinal: Negative for: Nausea, Vomiting, Abdominal Pain, Other (change in appetite) Genitourinary: Positive for: Other (self catheterizes) Musculoskeletal: Positive for: Back Pain, Leg Pain Physical Exam - Physical Exam Appears: Non-toxic, No Acute Distress Skin: Normal Color, Warm, Dry Head: Atraumatic, Normacephalic Eye(s): bilateral: Normal Inspection, PERRL, EOMI Nose: Normal Oral Mucosa: Moist Neck: Normal ROM, Supple Chest: Symmetrical Cardiovascular: Rhythm Regular, No Murmur Respiratory: Normal Breath Sounds, No Accessory Muscle Use, No Wheezing Gastrointestinal/Abdominal: Bowel Sounds (active), Soft, No Tenderness, No Distention Back: Normal Inspection, No CVA Tenderness, No Vertebral Tenderness Extremity: Normal ROM, No Tenderness, No Deformity, No Swelling Pulses: Left Dorsalis Pedis: Normal, Right Dorsalis Pedis: Normal Neurological/Psych: Oriented x3, Normal Speech, Normal Motor, Normal Sensation Gait: Steady ED Course And Treatment - Laboratory Results Result Diagrams: 05/10/17 10:35 05/10/17 10:35 O2 Sat by Pulse Oximetry: 100 (RA) Pulse Ox Interpretation: Normal - Other Rad CXR X-Ray: Viewed By Me, Read By Radiologist Interpretation: OSSEOUS STRUCTURES: Moreira rods. Mild thoracic dextroscoliosis. Deformity of right lateral chest wall, unchanged. IMPRESSION: No acute infiltrate. Medical Decision Making Medical Decision Making: Time: 10:19 Initial Plan: --EKG --Urine drug screen --Troponin I --CMP --CBC --PTT --Prothrombin time --Reticulocyte count --Chest x-ray --Urinalysis --HCG, urine qualitative --IV fluids --Benadryl 50 mg PO --Dilaudid 8 mg PO --Motrin 600 mg PO --Reglan 10 mg PO --Reevaluation Labs reviewed: Troponin negative. UA shows (+) leuks, WBC, occasional bacteria. U tox negative. Time: 11:53 --Added on urine culture --Patient started on Keflex, 500 mg PO Impression: 1. Pt w/ chronic pain issues, probably more related to spinal rods and chronic back pain than Sickle Cell Crisis now as pt recent adm and d/c home comfortable. labs today improved from baseline, argues against acute SC crisis. pt seems comfortable and NAD even prior to eval pt wanting to eat and ordered food delivered to her ED room 3, underscores benign presentation [place] reviewed- 14 prescriptions from 11 prescribers in past year- suspicious pattern Referred to Chronic Pain today- usually taking Dilaudid tablets 2 or 4 mg's. Will NOT refill now in ED for benign presentation 2. chronic bladder infections, probably related to self-catheterizing with neurogenic bladder prior Micro reviewed- whiting sensitive and usually multi-organism. Will d/c patient with Keflex BID x 7 days and Urology f/u as already planned. Culture sent. pt claims has never seen Pain Mgmt- usually gets narcotics filled by Heme/Onc. Will refer to our local Pain Mgmt Disposition Doctor Will See Patient In The: Office Counseled Patient/Family Regarding: Studies Performed, Diagnosis, Need For Followup, Rx Given - Disposition Disposition: HOME/ ROUTINE Disposition Time: 12:16 Condition: GOOD Forms: [employer] ([place]uan) - POA Present On Arrival: Cath Associated UTI - Clinical Impression Clinical Impression: UTI (urinary tract infection), Chronic pain disorder - Scribe Statement The provider has reviewed the documentation as recorded by the Scribe (Elsa Cha) Provider Attestation: All medical record entries made by the Scribe were at my direction and personally dictated by me. I have reviewed the chart and agree that the record accurately reflects my personal performance of the history, physical exam, medical decision making, and the department course for this patient. I have also personally directed, reviewed, and agree with the discharge instructions and disposition.
[2017-05-10 12:09] VITALS: BP 119/83; PULSE 93; RESP 15; TEMP 97.4
--- NOTE | 2017-05-10 12:11 | C.PDOC ---
Time Seen by Provider: 05/10/17 10:01 Chief Complaint (Nursing): Pain, Chronic Past Medical History Vital Signs: Last Vital Signs Temp 97.6 F 05/10/17 09:51 Pulse 99 H 05/10/17 09:51 Resp 18 05/10/17 09:51 BP 111/79 05/10/17 09:51 Pulse Ox 100 05/10/17 09:51 - Medical History PMH: Anemia, Migraine, Sickle Cell Disease Denies: Alzheimer's Disease, Asthma, Atrial Fibrillation, Bronchitis, Cardia Arrhythmia, CHF, COPD, Dementia, Emphysema, HIV, HTN, Hypercholesterolemia, Hyperthyroidism, Hypothyroidism, Kidney Stones, Mitral Valve Prolapse, Multiple Sclerosis, Parkinson's Disease, Peripheral Edema, Pneumonia, Pulmonary Embolism , Chronic Kidney Disease, Seizures, Sleep Apnea, TIA Surgical History: Cholecystectomy (2003) Denies: Pacemaker - [facility] Procedures PACKED CELL TRANSFUSION (07/26/12) TETANUS TOXOID ADMINIST (11/14/12) TRANSFUSE NONAUT RED BLOOD CELLS IN PERIPH VEIN, PERC (04/08/17) Family History: States: Unknown Family Hx - Social History Hx Tobacco Use: No Hx Alcohol Use: No Hx Substance Use: No - Immunization History Hx Tetanus Toxoid Vaccination: Yes Hx Influenza Vaccination: Yes Hx Pneumococcal Vaccination: Yes ED Course And Treatment - Laboratory Results Result Diagrams: 05/10/17 10:35 05/10/17 10:35 O2 Sat by Pulse Oximetry: 100 Medical Decision Making Medical Decision Making: chronic pain issues, probably more related to spinal rods and chronic back pain than Sickle Cell Crisis now as pt recent adm and d/c home comfortable. labs today improved from baseline, argues against acute SC crisis. pt seems comfortable and NAD even prior to eval pt wanting to eat and ordered food delivered to her ED room 3, underscores benign presentation [place] reviewed- 14 prescriptions from 11 prescribers in past year- suspicious pattern Referred to Chronic Pain today- usually taking Dilaudid tablets 2 or 4 mg's. Will NOT refill now in ED for benign presentation chronic bladder infections, probably related to self-cathetering with neurogenic bladder prior Micro reviewed- whiting sensitive and usually multi-organism. Keflex BID x 7 days and Urology f/u as already planned. Culture sent. Disposition Doctor Will See Patient In The: Office Counseled Patient/Family Regarding: Studies Performed, Diagnosis - Disposition Disposition: HOME/ ROUTINE Disposition Time: 12:16 Condition: GOOD - Clinical Impression Clinical Impression: UTI (urinary tract infection), Chronic pain disorder
--- NOTE | 2017-05-11 19:12 | CARD ---
APPROVED REPORT EKG Measurement Heart [id number] <Conclusion> Normal sinus rhythm Normal ECG
== END 2017-05-10 13:08 | disposition home or self-care (01) ==
LOC: C.ER 09:45
DX: N39.0 Urinary tract infection, site not specified (principal); G89.29 Other chronic pain
CPT/HCPCS: 71045; 80053; 81001; 84484; 84703; 85025; 85044; 85610; 85730; 87086; 87181; 93005; 96360; 99285; G0480; J7040

== ENCOUNTER 2017-05-12 13:09 | Inpatient (IN) | payer MEDICARE ==
[2017-05-12 13:10] VITALS: BMI 22.4
[2017-05-12] MEDS ORDERED: Sodium Chloride 0.9% 1,000 ML IV ONE (14:05)
[2017-05-12 14:29] LABS: BASO # 0.3 K/uL (0.0-0.2); BASO % 1.4 % (0.0-2.0); EOS # 0.7 K/uL (0.0-0.7); EOS % 3.8 % (0.0-4.0); LYMPH # 6.1 K/uL (1.0-4.3); LYMPH % 31.2 % (20.0-40.0); MEAN CELL VOLUME 84.9 fL (81.0-99.0); MEAN CORPUSCULAR HEMOGLOBIN 28.1 pg (27.0-31.0); MEAN CORPUSCULAR HGB CONC 33.1 g/dL (33.0-37.0); MEAN PLATELET VOLUME 8.5 fL (7.2-11.7); MONO # 1.6 K/uL (0.0-0.8); NEUT # 10.9 K/uL (1.8-7.0); NEUT % 55.6 % (50.0-75.0); NRBC % 0.1 % (0.0-2.0); RBC 2.26 Mil/uL (3.80-5.20); RED CELL DISTRIBUTION WIDTH 17.3 % (11.5-14.5); WHITE BLOOD COUNT 19.6 K/uL (4.8-10.8)
[2017-05-12 14:34] LABS: HEMOGLOBIN 6.3 g/dL (11.0-16.0)
[2017-05-12 14:54] LABS: SQUAMOUS EPITHIAL 7 /hpf (0-5); URINE BACTERIA MOD (<OCC); URINE BILIRUBIN NEGATIVE (NEGATIVE); URINE BLOOD 2+ (NEGATIVE); URINE CLARITY Hazy (Clear); URINE COLOR Yellow (YELLOW); URINE GLUCOSE (UA) NORMAL (Normal); URINE LEUKOCYTE ESTERASE 3+ Leu/uL (Negative); URINE PROTEIN 1+ mg/dL (NEGATIVE); URINE UROBILINOGEN NORMAL mg/dL (0.2-1.0)
[2017-05-12 14:54] LABS: ALB/GLOB RATIO 0.7 (1.0-2.1); ALBUMIN 3.5 g/dL (3.5-5.0); ALT/SGPT 66 U/L (9-52); AST/SGOT 103 U/L (14-36); BLOOD UREA NITROGEN 20 mg/dL (7-17); GFR AFRICAN-AMERICAN > 60; GFR NON-AFRICAN AMERICAN 50
--- NOTE | 2017-05-12 15:12 | C.PDOC ---
History Of Present Illness 36-year-old female, PMHx includes sickle cell disease and neurogenic bladder, presents to the emergency department, with complaints of several day history of lower back pain and bilateral leg pain. Patient states symptoms are typical of her crises. She denies chest pain, shortness of breath, abdominal pain, fevers, chills, nausea/vomiting. Time Seen by Provider: 05/12/17 13:33 Chief Complaint (Nursing): Lower Extremity Problem/Injury History Per: Patient History/Exam Limitations: no limitations Past Medical History Reviewed: Historical Data, Nursing Documentation, Vital Signs Vital Signs: Last Vital Signs Temp 98.3 F 05/12/17 19:17 Pulse 94 H 05/12/17 19:17 Resp 20 05/12/17 19:17 BP 107/71 05/12/17 19:17 Pulse Ox 100 05/12/17 19:17 - Medical History PMH: Anemia, Migraine, Sickle Cell Disease Surgical History: Cholecystectomy (2003) - [facility] Procedures PACKED CELL TRANSFUSION (07/26/12) TETANUS TOXOID ADMINIST (11/14/12) TRANSFUSE NONAUT RED BLOOD CELLS IN PERIPH VEIN, PERC (04/08/17) Family History: States: Unknown Family Hx - Social History Hx Tobacco Use: No Hx Alcohol Use: No Hx Substance Use: No - Immunization History Hx Tetanus Toxoid Vaccination: Yes Hx Influenza Vaccination: Yes Hx Pneumococcal Vaccination: Yes Review Of Systems Constitutional: Negative for: Fever, Chills Cardiovascular: Negative for: Chest Pain, Palpitations, Edema Respiratory: Negative for: Cough, Shortness of Breath Gastrointestinal: Negative for: Nausea, Vomiting Musculoskeletal: Positive for: Back Pain Neurological: Negative for: Weakness, Numbness, Headache, Dizziness Physical Exam - Physical Exam Appears: Non-toxic, No Acute Distress Skin: Normal Color, Warm, Dry, No Rash Head: Normacephalic Eye(s): bilateral: PERRL Nose: Normal Oral Mucosa: Moist Lips: Normal Appearing Neck: Normal ROM Chest: Symmetrical Cardiovascular: Rhythm Regular, No Murmur Respiratory: Normal Breath Sounds, No Accessory Muscle Use Gastrointestinal/Abdominal: Soft, No Tenderness Extremity: Normal ROM, No Deformity, No Swelling Neurological/Psych: Oriented x3, Normal Speech ED Course And Treatment - Laboratory Results Result Diagrams: 05/12/17 14:24 05/12/17 14:24 O2 Sat by Pulse Oximetry: 100 (RA) Pulse Ox Interpretation: Normal Medical Decision Making Medical Decision Making: pt with urine culture results, antibiotics switched to bactrim discussed with Alba Hernandez, will admit to his service. Disposition Discussed With DrArchie: Rosalina Hernandez Doctor Will See Patient In The: Hospital - Disposition Disposition: HOSPITALIZED Disposition Time: 17:13 Condition: FAIR - Clinical Impression Clinical Impression: Sickle cell pain crisis, UTI (urinary tract infection), Anemia - Scribe Statement The provider has reviewed the documentation as recorded by the Scribe (Fay Martinez) All medical record entries made by the Scribe were at my direction and personally dictated by me. I have reviewed the chart and agree that the record accurately reflects my personal performance of the history, physical exam, medical decision making, and the department course for this patient. I have also personally directed, reviewed, and agree with the discharge instructions and disposition.
[2017-05-12] MEDS ORDERED: Tmp-Smz 800 mg-160 mg DS Tab PO STA (15:20)
[2017-05-12] MEDS ORDERED: Sodium Chloride 0.9% 1,000 ML ONE (15:20)
[2017-05-12] MEDS ORDERED: Tmp-Smz 800 mg-160 mg DS Tab ONE (15:27)
--- NOTE | 2017-05-12 18:40 | CP.PCM.HP ---
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 with history of multiple admissions and well known to us with history of sickle cell disease history of neurogenic bladder status post self-catheterization although patient is not compliant to 8 with history of multiple UTIs with leukocytosis treated with IV antibiotic multiple times came in again with complaints of lower back pain and extremity pain denies the chest pain denies fever denies nausea denies vomiting Denies shortness of breath abdominal pain Present on Admission - Present on Admission Any Indicators Present on Admission: No Past Patient History - Infectious Disease Hx of Infectious Diseases: None - Past Medical History & Family History Past Medical History?: Yes - Past Social History Smoking Status: Never Smoked - CARDIAC Hx Atrial Fibrillation: No Hx Cardia Arrhythmia: No Hx Congestive Heart Failure: No Hx Hypercholesterolemia: No Hx Hypertension: No Hx Mitral Valve Prolapse: No Hx Pacemaker: No Hx Peripheral Edema: No - PULMONARY Hx Asthma: No Hx Bronchitis: No Hx Chronic Obstructive Pulmonary Disease (COPD): No Hx Emphysema: No Hx Pneumonia: No Hx Pulmonary Embolism: No Hx Sleep Apnea: No - NEUROLOGICAL Hx Migraine: Yes - HEENT Hx HEENT Problems: No Hx Blind: No Hx Cataracts: No Hx Deafness: No Hx Difficulty Chewing: No Hx Epistaxis: No Hx Glaucoma: No Hx Macular Degeneration: No - RENAL Hx Chronic Kidney Disease: No Hx Kidney Stones: No - ENDOCRINE/METABOLIC Hx Hyperthyroidism: No Hx Hypothyroidism: No - HEMATOLOGICAL/ONCOLOGICAL Hx Anemia: Yes Hx Sickle Cell Disease: Yes - INTEGUMENTARY Hx Dermatological Problems: No - MUSCULOSKELETAL/RHEUMATOLOGICAL Hx Falls: No - GASTROINTESTINAL Hx Gastrointestinal Disorders: No - GENITOURINARY/GYNECOLOGICAL Hx Genitourinary Disorders: No - PSYCHIATRIC Hx Substance Use: No - SURGICAL HISTORY Hx Cholecystectomy: Yes (2003) - ANESTHESIA Hx Anesthesia: Yes Hx Anesthesia Reactions: No Meds Allergies/Adverse Reactions: Allergies Allergy/AdvReac Type Severity Reaction Status Date / Time droperidol Allergy Verified 05/02/17 17:54 tramadol Allergy Verified 05/02/17 17:54 inapsine Allergy RASH Uncoded 05/02/17 17:54 Results - Vital Signs Recent Vital Signs: Last Vital Signs Temp 97.9 F 05/12/17 18:07 Pulse 83 05/12/17 18:07 Resp 18 05/12/17 18:07 BP 104/71 05/12/17 18:07 Pulse Ox 100 05/12/17 18:07 - Labs Result Diagrams: 05/13/17 12:36 05/13/17 08:07 Labs: Laboratory Results - last 24 hr 05/12/17 05/12/17 05/12/17 14:24 14:24 14:31 WBC 19.6 H RBC 2.26 L Hgb 6.3 L* Hct 19.2 L MCV 84.9 MCH 28.1 MCHC 33.1 RDW 17.3 H Plt Count 150 MPV 8.5 Neut % (Auto) 55.6 Lymph % (Auto) 31.2 [place] % (Auto) 8.0 Eos % (Auto) 3.8 Baso % (Auto) 1.4 Neut # (Auto) 10.9 H Lymph # (Auto) 6.1 H [place] # (Auto) 1.6 H Eos # (Auto) 0.7 Baso # (Auto) 0.3 H Retic Count 2.9 H D Sodium 140 Potassium 4.0 Chloride 107 Carbon Dioxide 19 L Anion Gap 18 BUN 20 H Creatinine 1.2 Est GFR ( Amer) > 60 Est GFR (Non-Af Amer) 50 Random Glucose 92 Calcium 8.0 L Total Bilirubin 2.2 H AST 103 H ALT 66 H Alkaline Phosphatase 134 H D Lactate Dehydrogenase 717 H Total Protein 8.7 H Albumin 3.5 Globulin 5.2 H Albumin/Globulin Ratio 0.7 L Urine Color Yellow Urine Clarity Hazy Urine pH 6.0 Ur Specific [place] 1.009 Urine Protein 1+ H Urine Glucose (UA) Normal Urine Ketones Negative Urine Blood 2+ H Urine Nitrate Negative Urine Bilirubin Negative Urine Urobilinogen Normal Ur Leukocyte Esterase 3+ H Urine WBC (Auto) 636 H Urine RBC (Auto) 13 H Ur Squamous Epith Cells 7 H Urine Bacteria Mod H Assessment & Plan - Assessment and Plan (Free Text) Plan: ivf folatewill not give iron will not transfuse at hgb 6.[address] lu prkerrie willie a sordered iv dialudid iv benadryl
[2017-05-12] MEDS: DiphenhydrAMINE 50 mg/ml Inj IVP SCH ×2 (19:00→22:15)
[2017-05-13] MEDS: DiphenhydrAMINE 50 mg/ml Inj IVP SCH ×8 (01:05→22:20)
[2017-05-13 08:30] LABS: ALB/GLOB RATIO 0.7 (1.0-2.1); ALBUMIN 3.4 g/dL (3.5-5.0); BILIRUBIN,DIRECT 0.5 mg/dL (0.0-0.4); CALCIUM 7.6 mg/dl (8.6-10.4)
[2017-05-13] MEDS: Tmp-Smz 800 mg-160 mg DS Tab PO SCH ×2 (10:28→22:22)
[2017-05-13] MEDS: Pantoprazole 40 mg EC Tab PO SCH (10:28)
[2017-05-13] MEDS: Enoxaparin 40 mg Syringe SC SCH (10:33)
[2017-05-13 12:39] LABS: BASO # 0.3 K/uL (0.0-0.2); BASO % 1.2 % (0.0-2.0); EOS # 1.2 K/uL (0.0-0.7); EOS % 4.8 % (0.0-4.0); LYMPH # 5.8 K/uL (1.0-4.3); LYMPH % 24.2 % (20.0-40.0); MEAN CELL VOLUME 85.1 fL (81.0-99.0); MEAN CORPUSCULAR HEMOGLOBIN 28.9 pg (27.0-31.0); MEAN PLATELET VOLUME 8.7 fL (7.2-11.7); MONO # 2.3 K/uL (0.0-0.8); MONO % 9.3 % (0.0-10.0); NEUT # 14.6 K/uL (1.8-7.0); NEUT % 60.5 % (50.0-75.0); NRBC % 0.3 % (0.0-2.0); RBC 2.19 Mil/uL (3.80-5.20); RED CELL DISTRIBUTION WIDTH 17.7 % (11.5-14.5); WHITE BLOOD COUNT 24.2 K/uL (4.8-10.8)
[2017-05-13 12:41] LABS: HEMOGLOBIN 6.3 g/dL (11.0-16.0)
--- NOTE | 2017-05-13 13:09 | CP.PCM.PN ---
Subjective - Date & Time of Evaluation Date of Evaluation: 05/06/17 Time of Evaluation: 09:40 - Subjective Subjective: clinically same Objective - Vital Signs/Intake and Output Vital Signs (last 24 hours): Temp Pulse Resp BP Pulse Ox 98.4 F 109 H 20 112/72 100 05/13/17 08:08 05/13/17 08:08 05/13/17 08:08 05/13/17 08:08 05/13/17 08:08 - Medications Medications: Current Medications Diphenhydramine HCl (Benadryl) 25 mg IVP Q3 [facility] Last Admin: 05/13/17 10:28 Dose: 25 mg Enoxaparin Sodium (Lovenox) 40 mg SC DAILY [facility] Last Admin: 05/13/17 10:33 Dose: Not Given Folic Acid (Folic Acid) 2 mg PO DAILY [facility] Last Admin: 05/13/17 10:28 Dose: 2 mg Hydromorphone HCl (Dilaudid) 2 mg IVP Q3 [facility] Last Admin: 05/13/17 10:29 Dose: 2 mg Pantoprazole Sodium (Protonix Ec Tab) 40 mg PO DAILY [facility] Last Admin: 05/13/17 10:28 Dose: 40 mg Trimethoprim/Sulfamethoxazole (Bactrim Ds Tab) 1 tab PO Q12H [facility] PRN Reason: Protocol Last Admin: 05/13/17 10:28 Dose: 1 tab - Labs Labs: 05/13/17 12:36 05/13/17 08:07 - Constitutional Appears: Well - Head Exam Head Exam: ATRAUMATIC, NORMAL INSPECTION, NORMOCEPHALIC - Eye Exam Eye Exam: EOMI, Normal appearance, PERRL Pupil Exam: NORMAL ACCOMODATION, PERRL - ENT Exam ENT Exam: Mucous Membranes Moist, Normal Exam - Neck Exam Neck Exam: Full ROM, Normal Inspection. absent: Lymphadenopathy - Respiratory Exam Respiratory Exam: Decreased Breath Sounds - Cardiovascular Exam Cardiovascular Exam: REGULAR RHYTHM, +S1, +S2 - GI/Abdominal Exam GI & Abdominal Exam: Soft, Diminished Bowel Sounds - Rectal Exam Rectal Exam: Deferred Assessment and Plan (1) Anemia Status: Acute (2) Leukocytosis Status: Acute (3) Sickle cell pain crisis Status: Acute (4) UTI (urinary tract infection) Status: Acute (5) Animal bite wound Status: Acute (6) Chronic pain disorder Status: Acute (7) Leg pain Status: Acute (8) Leukocytosis Status: Acute (9) Myalgia Status: Acute (10) Neurogenic bladder Status: Acute (11) Pain Status: Acute (12) Severe anemia Status: Acute (13) Sickle cell anemia Status: Acute (14) Sickle cell anemia with pain Status: Acute - Assessment and Plan (Free Text) Plan: Pain medications Bactrim GI and DVT prophylaxis IV Benadryl Monitor WBC ID consultation
--- NOTE | 2017-05-13 17:28 | CP.PCM.CON ---
History of Present Illness - History of Present Illness History of Present Illness: INFECTIOUS DISEASE CONSULT; HPI 36-year-old female with past medical history of sickle cell disease and multiple sickle cell crisis who was recently hospitalized [facility] and discharged on 05/06/17 now returns back with complaints of severe pain bilateral legs and low back pain. Patient states her symptoms are typical of her crisis. Patient denies any chest pain, cough, shortness of breath, abdominal pain, fevers or chills. Denies any nausea vomiting or appetite is very poor. Patient also has history off neurogenic bladder and history of bilateral ureteral stents insertion 2016. Recent bladder ultrasound showed right and left ureteral stent with moderate hydronephrosis bilaterally. Patient has history of recurrent UTIs and self catheterizes herself 2 or 3 times a day. Patient's recent urine culture was positive for VRE which cleared after Zyvox therapy. Patient now has increasing leukocytosis of 19.6 with H&H of 6.3 and 19.2 Patient urinalysis shows WBCs of 626 with 3+ leukocytes and moderate bacteria. INFECTIOUS DISEASE CONSULT REQUESTED BY PMD FOR INCREASING LEUKOCYTOSIS AND RECURRENT UTI. LMP 25 APRIL 2017.,LATELY PERIODS ARE IRREGULAR,BUT LAST FOR 5 DAYS.PATIENT IS SINGLE AND LIVES BY HERSELF. PMH: Anemia, Migraine, Sickle Cell Disease Surgical History: Cholecystectomy (2003), B/L INTERNAL STENTS FOR HYDRONEPHROSIS IN 2016. Denies: Pacemaker Allergy; droperidol, tramadol. Social History Hx Tobacco Use: No Hx Alcohol Use: No Hx Substance Use: No - Immunization History Hx Tetanus Toxoid Vaccination: Yes Hx Influenza Vaccination: Yes Hx Pneumococcal Vaccination: Yes Review of Systems - Constitutional Constitutional: Malaise. absent: Chills, Fever - Cardiovascular Cardiovascular: absent: Chest Pain, Dyspnea, Leg Edema - Respiratory Respiratory: absent: Cough - Gastrointestinal Gastrointestinal: absent: Abdominal Pain, Diarrhea, Nausea, Vomiting - Genitourinary Genitourinary: Pyuria, Urinary Hesitance, Freq UTI, Bladder Distension. absent : Hematuria - Menstruation Menstruation: Menses Variable - Musculoskeletal Musculoskeletal: Back Pain, Radiating Pain into Limb - Neurological Neurological: absent: Headaches, Paresthesias - Psychiatric Psychiatric: Change in Appetite - Hematologic/Lymphatic Hematologic: As Per HPI Past Patient History - Infectious Disease Hx of Infectious Diseases: None - Past Medical History & Family History Past Medical History?: Yes - Past Social History Smoking Status: Never Smoked - CARDIAC Hx Atrial Fibrillation: No Hx Cardia Arrhythmia: No Hx Congestive Heart Failure: No Hx Hypercholesterolemia: No Hx Hypertension: No Hx Mitral Valve Prolapse: No Hx Pacemaker: No Hx Peripheral Edema: No - PULMONARY Hx Asthma: No Hx Bronchitis: No Hx Chronic Obstructive Pulmonary Disease (COPD): No Hx Emphysema: No Hx Pneumonia: No Hx Pulmonary Embolism: No Hx Sleep Apnea: No - NEUROLOGICAL Hx Migraine: Yes - HEENT Hx HEENT Problems: No Hx Blind: No Hx Cataracts: No Hx Deafness: No Hx Difficulty Chewing: No Hx Epistaxis: No Hx Glaucoma: No Hx Macular Degeneration: No - RENAL Hx Chronic Kidney Disease: No Hx Kidney Stones: No - ENDOCRINE/METABOLIC Hx Hyperthyroidism: No Hx Hypothyroidism: No - HEMATOLOGICAL/ONCOLOGICAL Hx Anemia: Yes Hx Sickle Cell Disease: Yes - INTEGUMENTARY Hx Dermatological Problems: No - MUSCULOSKELETAL/RHEUMATOLOGICAL Hx Falls: No - GASTROINTESTINAL Hx Gastrointestinal Disorders: No - GENITOURINARY/GYNECOLOGICAL Hx Genitourinary Disorders: No - PSYCHIATRIC Hx Substance Use: No - SURGICAL HISTORY Hx Cholecystectomy: Yes (2003) - ANESTHESIA Hx Anesthesia: Yes Hx Anesthesia Reactions: No Meds Allergies/Adverse Reactions: Allergies Allergy/AdvReac Type Severity Reaction Status Date / Time droperidol Allergy Verified 05/02/17 17:54 tramadol Allergy Verified 05/02/17 17:54 inapsine Allergy RASH Uncoded 05/02/17 17:54 - Medications Medications: Current Medications Diphenhydramine HCl (Benadryl) 25 mg IVP Q3 [facility] Last Admin: 05/13/17 16:14 Dose: 25 mg Enoxaparin Sodium (Lovenox) 40 mg SC DAILY [facility] Last Admin: 05/13/17 10:33 Dose: Not Given Folic Acid (Folic Acid) 2 mg PO DAILY [facility] Last Admin: 05/13/17 10:28 Dose: 2 mg Hydromorphone HCl (Dilaudid) 2 mg IVP Q3 [facility] Last Admin: 05/13/17 16:15 Dose: 2 mg Pantoprazole Sodium (Protonix Ec Tab) 40 mg PO DAILY [facility] Last Admin: 05/13/17 10:28 Dose: 40 mg Trimethoprim/Sulfamethoxazole (Bactrim Ds Tab) 1 tab PO Q12H [facility] PRN Reason: Protocol Last Admin: 05/13/17 10:28 Dose: 1 tab Physical Exam - Head Exam Head Exam: NORMAL INSPECTION - Eye Exam Eye Exam: EOMI, PERRL, Scleral icterus - ENT Exam ENT Exam: Normal Oropharynx - Neck Exam Neck exam: Positive for: Normal Inspection - Respiratory Exam Respiratory Exam: Clear to Auscultation Bilateral - Cardiovascular Exam Cardiovascular Exam: REGULAR RHYTHM, +S1, +S2 - GI/Abdominal Exam GI & Abdominal Exam: Normal Bowel Sounds, Soft, Tenderness (SUPRAPUBIC TENDERNESS.) - Extremities Exam Extremities exam: Positive for: pedal edema, pedal pulses present. Negative for : calf tenderness - Back Exam Back exam: CVA tenderness (L), CVA tenderness (R) - Neurological Exam Neurological exam: Alert, CN II-XII Intact, Oriented x3 - Psychiatric Exam Psychiatric exam: Depressed - Skin Skin Exam: Pallor, Warm Results - Vital Signs Recent Vital Signs: Last Vital Signs Temp 98.0 F 05/13/17 15:00 Pulse 104 H 05/13/17 15:00 Resp 20 05/13/17 15:00 BP 114/71 05/13/17 15:00 Pulse Ox 95 05/13/17 16:00 - Labs Result Diagrams: 05/13/17 12:36 05/13/17 08:07 Labs: Laboratory Results - last 24 hr 05/13/17 05/13/17 05/13/17 01:15 08:07 12:36 WBC 24.2 H RBC 2.19 L Hgb 6.3 L* Hct 18.7 L MCV 85.1 MCH 28.9 MCHC 34.0 RDW 17.7 H Plt Count 172 MPV 8.7 Neut % (Auto) 60.5 Lymph % (Auto) 24.2 [place] % (Auto) 9.3 Eos % (Auto) 4.8 H Baso % (Auto) 1.2 Neut # (Auto) 14.6 H Lymph # (Auto) 5.8 H [place] # (Auto) 2.3 H Eos # (Auto) 1.2 H Baso # (Auto) 0.3 H Differential Comment Sodium 138 Potassium 4.7 Chloride 107 Carbon Dioxide 17 L Anion Gap 19 BUN 23 H Creatinine 1.4 H Est GFR ( Amer) 51 Est GFR (Non-Af Amer) 42 Random Glucose 84 Calcium 7.6 L Total Bilirubin 2.0 H Direct Bilirubin 0.5 H AST 89 H ALT 65 H Alkaline Phosphatase 135 H Total Protein 8.4 H Albumin 3.4 L Globulin 5.1 H Albumin/Globulin Ratio 0.7 L Urine HCG, Qual Negative Assessment & Plan (1) Sickle cell pain crisis Status: Acute (2) Leukocytosis Status: Acute (3) UTI (urinary tract infection) Status: Acute (4) Anemia Status: Acute (5) Neurogenic bladder Status: Acute - Assessment and Plan (Free Text) Plan: pancultures G6PD deficiency *By mouth Bactrim 1 double strength twice a day as urine culture 05/06/17 showing Escherichia coli sensitive to Bactrim. Follow-up BMP, liver profile. evaluation as patient has bilateral hydronephrosis and bilateral ureteral stents. Monitor H&H. Consider hematology evaluation for possible blood transfusion. Will follow along with you. Follow-up repeat UA urine cultures and adjust antibiotics. Case discussed with the staff.
[2017-05-14] MEDS: DiphenhydrAMINE 50 mg/ml Inj IVP SCH ×8 (00:58→22:00)
--- NOTE | 2017-05-14 09:15 | CP.PCM.PN ---
<Enoc Spence - Last Filed: 05/14/17 09:26> Subjective - Date & Time of Evaluation Date of Evaluation: 05/14/17 Time of Evaluation: 09:03 - Subjective Subjective: PGY-[address] Hernandez's Service: Pt seen and examined at bedside. Nursing reports no acute events overnight. Patient found walking halls in [facility]. She states she has had multiple admissions here for sickle cell crisis. She states pain in low back and legs is well controlled on current pain regimen. She states she has seen Dr. Darryn Hernandez (Hem/Onc ) and Dr. Leyva as outpatient. She used to take hydroxyurea, but stopped 6 months ago at direction of Dr. Darryn Hernandez. She denies chest pain, SOB, headache, vision problems, abdominal pain, N/V. Objective - Vital Signs/Intake and Output Vital Signs (last 24 hours): Temp Pulse Resp BP Pulse Ox 98.8 F 110 H 20 113/70 98 05/14/17 08:06 05/14/17 08:06 05/14/17 08:06 05/14/17 08:06 05/14/17 08:16 Intake and Output: 05/14/17 05/14/17 06:59 18:59 Intake Total 450 Balance 450 - Medications Medications: Current Medications Diphenhydramine HCl (Benadryl) 25 mg IVP Q3 [facility] Last Admin: 05/14/17 07:20 Dose: 25 mg Enoxaparin Sodium (Lovenox) 40 mg SC DAILY [facility] Last Admin: 05/13/17 10:33 Dose: Not Given Folic Acid (Folic Acid) 2 mg PO DAILY [facility] Last Admin: 05/13/17 10:28 Dose: 2 mg Hydromorphone HCl (Dilaudid) 2 mg IVP Q3 [facility] Last Admin: 05/14/17 07:00 Dose: 2 mg Pantoprazole Sodium (Protonix Ec Tab) 40 mg PO DAILY [facility] Last Admin: 05/13/17 10:28 Dose: 40 mg Trimethoprim/Sulfamethoxazole (Bactrim Ds Tab) 1 tab PO Q12H [facility] PRN Reason: Protocol Last Admin: 05/13/17 22:22 Dose: 1 tab - Labs Labs: 05/13/17 12:36 05/13/17 08:07 - Constitutional Appears: Non-toxic, No Acute Distress - Head Exam Head Exam: ATRAUMATIC, NORMAL INSPECTION - Eye Exam Eye Exam: EOMI, Normal appearance - ENT Exam ENT Exam: Mucous Membranes Moist - Neck Exam Neck Exam: Full ROM - Respiratory Exam Respiratory Exam: Clear to Ausculation Bilateral, NORMAL BREATHING PATTERN. absent: Rales, Rhonchi, Wheezes - Cardiovascular Exam Cardiovascular Exam: REGULAR RHYTHM, +S1, +S2 - GI/Abdominal Exam GI & Abdominal Exam: Soft, Normal Bowel Sounds. absent: Tenderness - Extremities Exam Extremities Exam: Normal Inspection. absent: Pedal Edema, Tenderness - Back Exam Back Exam: absent: CVA tenderness (L), CVA tenderness (R) - Neurological Exam Neurological Exam: Alert, Awake, Oriented x3 - Psychiatric Exam Psychiatric exam: Normal Affect, Normal Mood - Skin Skin Exam: Dry, Normal Color, Warm Assessment and Plan - Assessment and Plan (Free Text) Plan: Sickle cell Crisis Admit to med/surg Pt with LBP, leg pain; denies CP, SOB HGB 6.3 on (05/12/17), stable yesterday Retic ct 2.3, LDH 673 - f/u AM labs Dr. Leyva Hem/Onc retirement consultant, help greatly appreciated - will await Dr. Leyva's assessment before transfusing Folic acid 2mg PO daily Dilaudid 3mg IV q3hrs prn Lovenox 40mg sc daily Urinary tract infection UA (05/12/17): 3+ LE, Nitrate negative, WBC 636, Moderate bacteria Urine Culture: Gram negative rai ID consult. Dr. Ruth Jones. recs appreciated. -DS Bactrim 1 tab PO Q12H (start 05/13/17) Previous Admission: -Bladder US (05/01/17)- B/L ureteral stents with moderate hydronephrosis R>L -Ucx (04/28/17)- vancomycin resistant E. faecium Leukocytosis WBC increasing Etiology: UTI in setting of SSC ID consult. Dr. Ruth Jones. recs appreciated. -DS Bactrim 1 tab PO Q12H Neurogenic bladder -straight cath PRN; patient is able to do herself GI/DVT ppx -lovenox 40mg SC daily -protonix 40mg PO daily SCDs not warranted; pt mobile Enoc Spence PGY2 Patient is medically stable to be discharged per Dr. Hernandez <Rosalina Hernandez - Last Filed: 05/19/17 08:17> Subjective - Subjective Subjective: case john dnd.w staff and resident d/w staff about scd and uti mx Objective - Vital Signs/Intake and Output Vital Signs (last 24 hours): Temp Pulse Resp BP Pulse Ox 98.6 F 108 H 20 103/72 100 05/19/17 00:04 05/19/17 00:04 05/19/17 00:04 05/19/17 00:04 05/19/17 00:04 - Medications Medications: Current Medications Diphenhydramine HCl (Benadryl) 25 mg IVP Q3 PRN PRN Reason: Anaphylaxis Last Admin: 05/19/17 06:17 Dose: 25 mg Folic Acid (Folic Acid) 2 mg PO DAILY [facility] Last Admin: 05/18/17 10:17 Dose: 2 mg Hydromorphone HCl (Dilaudid) 2 mg IVP Q3 PRN PRN Reason: Pain, severe (8-10) Last Admin: 05/19/17 06:16 Dose: 2 mg Meropenem 500 mg/ Sodium (Chloride) 100 mls @ 100 mls/hr IVPB Q8 [facility] PRN Reason: Protocol Last Admin: 05/19/17 06:13 Dose: 100 mls/hr Pantoprazole Sodium (Protonix Ec Tab) 40 mg PO DAILY [facility] Last Admin: 05/18/17 10:16 Dose: 40 mg - Labs Labs: 05/19/17 07:20 05/18/17 07:37
[2017-05-14] MEDS: Pantoprazole 40 mg EC Tab PO SCH (10:09)
[2017-05-14] MEDS: Tmp-Smz 800 mg-160 mg DS Tab PO SCH ×2 (10:09→22:02)
[2017-05-14] MEDS: Enoxaparin 40 mg Syringe SC SCH (10:10)
--- NOTE | 2017-05-14 11:07 | CP.PCM.CON ---
History of Present Illness - History of Present Illness History of Present Illness: 36 year old female with a history of sickle cell anemia, admitted with sickle cell pain crisis. The patient reports to increasing diffuse bone pain which did not improve with her oral pain meds. She denies fevers and chills. She does report to progressive fatigue but no shortness of breath. She denies abnormal bleeding and bruising. Past medical history: Sickle cell anemia Past surgical history: Portacath Family history: Parents have the trait. Social history: Denies tobacco, alcohol, and illicit drug use. Allergies: Droperidol, tramadol Review of systems: All remaining review of systems including HEENT, cardiovascular, respiratory, gastrointestinal, genitourinary, musculoskeletal, dermatologic, neurologic, and psychiatric are negative unless mentioned in the HPI. Past Patient History - Infectious Disease Hx of Infectious Diseases: None - Past Medical History & Family History Past Medical History?: Yes - Past Social History Smoking Status: Never Smoked - CARDIAC Hx Atrial Fibrillation: No Hx Cardia Arrhythmia: No Hx Congestive Heart Failure: No Hx Hypercholesterolemia: No Hx Hypertension: No Hx Mitral Valve Prolapse: No Hx Pacemaker: No Hx Peripheral Edema: No - PULMONARY Hx Asthma: No Hx Bronchitis: No Hx Chronic Obstructive Pulmonary Disease (COPD): No Hx Emphysema: No Hx Pneumonia: No Hx Pulmonary Embolism: No Hx Sleep Apnea: No - NEUROLOGICAL Hx Migraine: Yes - HEENT Hx HEENT Problems: No Hx Blind: No Hx Cataracts: No Hx Deafness: No Hx Difficulty Chewing: No Hx Epistaxis: No Hx Glaucoma: No Hx Macular Degeneration: No - RENAL Hx Chronic Kidney Disease: No Hx Kidney Stones: No - ENDOCRINE/METABOLIC Hx Hyperthyroidism: No Hx Hypothyroidism: No - HEMATOLOGICAL/ONCOLOGICAL Hx Anemia: Yes Hx Sickle Cell Disease: Yes - INTEGUMENTARY Hx Dermatological Problems: No - MUSCULOSKELETAL/RHEUMATOLOGICAL Hx Falls: No - GASTROINTESTINAL Hx Gastrointestinal Disorders: No - GENITOURINARY/GYNECOLOGICAL Hx Genitourinary Disorders: No - PSYCHIATRIC Hx Substance Use: No - SURGICAL HISTORY Hx Cholecystectomy: Yes (2003) - ANESTHESIA Hx Anesthesia: Yes Hx Anesthesia Reactions: No Meds Allergies/Adverse Reactions: Allergies Allergy/AdvReac Type Severity Reaction Status Date / Time droperidol Allergy Verified 05/02/17 17:54 tramadol Allergy Verified 05/02/17 17:54 inapsine Allergy RASH Uncoded 05/02/17 17:54 - Medications Medications: Current Medications Diphenhydramine HCl (Benadryl) 25 mg IVP Q3 [facility] Last Admin: 05/14/17 10:09 Dose: 25 mg Enoxaparin Sodium (Lovenox) 40 mg SC DAILY [facility] Last Admin: 05/14/17 10:10 Dose: Not Given Folic Acid (Folic Acid) 2 mg PO DAILY [facility] Last Admin: 05/14/17 10:09 Dose: 2 mg Hydromorphone HCl (Dilaudid) 2 mg IVP Q3 [facility] Last Admin: 05/14/17 10:11 Dose: 2 mg Pantoprazole Sodium (Protonix Ec Tab) 40 mg PO DAILY [facility] Last Admin: 05/14/17 10:09 Dose: 40 mg Trimethoprim/Sulfamethoxazole (Bactrim Ds Tab) 1 tab PO Q12H [facility] PRN Reason: Protocol Last Admin: 05/14/17 10:09 Dose: 1 tab Physical Exam - Head Exam Head Exam: ATRAUMATIC - ENT Exam ENT Exam: Mucous Membranes Dry - Respiratory Exam Respiratory Exam: NORMAL BREATHING PATTERN - Cardiovascular Exam Cardiovascular Exam: +S1, +S2 - GI/Abdominal Exam GI & Abdominal Exam: Normal Bowel Sounds - Extremities Exam Extremities exam: Positive for: normal inspection - Neurological Exam Neurological exam: Oriented x3 - Psychiatric Exam Psychiatric exam: Normal Affect, Normal Mood - Skin Skin Exam: Warm Results - Vital Signs Recent Vital Signs: Last Vital Signs Temp 98.8 F 05/14/17 08:06 Pulse 110 H 05/14/17 08:06 Resp 20 05/14/17 08:06 BP 113/70 05/14/17 08:06 Pulse Ox 98 05/14/17 08:16 - Labs Result Diagrams: 05/13/17 12:36 05/13/17 08:07 Labs: Laboratory Results - last 24 hr 05/13/17 12:36 WBC 24.2 H RBC 2.19 L Hgb 6.3 L* Hct 18.7 L MCV 85.1 MCH 28.9 MCHC 34.0 RDW 17.7 H Plt Count 172 MPV 8.7 Neut % (Auto) 60.5 Lymph % (Auto) 24.2 Andrew % (Auto) 9.3 Eos % (Auto) 4.8 H Baso % (Auto) 1.2 Neut # (Auto) 14.6 H Lymph # (Auto) 5.8 H Andrew # (Auto) 2.3 H Eos # (Auto) 1.2 H Baso # (Auto) 0.3 H Differential Comment Assessment & Plan (1) Sickle cell pain crisis Assessment and Plan: IV fluids, folic acid, pain meds, 02 via NC Status: Acute (2) Leukocytosis Assessment and Plan: on antibiotics may have reactive component from sickle cell Status: Acute (3) Sickle cell anemia Assessment and Plan: outpatient folic acid Thank you for this interesting consult. Status: Acute
[2017-05-14 12:12] LABS: BASO # 0.3 K/uL (0.0-0.2); BASO % 1.2 % (0.0-2.0); EOS # 1.1 K/uL (0.0-0.7); EOS % 4.5 % (0.0-4.0); LYMPH # 6.2 K/uL (1.0-4.3); LYMPH % 26.2 % (20.0-40.0); MEAN CELL VOLUME 85.3 fL (81.0-99.0); MEAN CORPUSCULAR HEMOGLOBIN 28.3 pg (27.0-31.0); MEAN CORPUSCULAR HGB CONC 33.2 g/dL (33.0-37.0); MEAN PLATELET VOLUME 9.3 fL (7.2-11.7); MONO # 2.4 K/uL (0.0-0.8); NEUT # 13.8 K/uL (1.8-7.0); NEUT % 58.1 % (50.0-75.0); NRBC % 0.6 % (0.0-2.0); RBC 2.07 Mil/uL (3.80-5.20); RED CELL DISTRIBUTION WIDTH 17.4 % (11.5-14.5); WHITE BLOOD COUNT 23.7 K/uL (4.8-10.8)
[2017-05-14 12:16] LABS: HEMOGLOBIN 5.8 g/dL (11.0-16.0)
[2017-05-14 12:35] LABS: ALB/GLOB RATIO 0.7 (1.0-2.1); ALBUMIN 3.5 g/dL (3.5-5.0); CALCIUM 7.7 mg/dl (8.6-10.4)
--- NOTE | 2017-05-14 18:14 | CP.PCM.PN ---
Subjective - Date & Time of Evaluation Date of Evaluation: 05/14/17 Time of Evaluation: 08:00 - Subjective Subjective: Pt seen and examined at bedside. Nursing reports no acute events overnight. Patient found walking halls in [facility]. She states she has had multiple admissions here for sickle cell crisis. She states pain in low back and legs is well controlled on current pain regimen. She states she has seen Dr. Darryn Hernandez (Hem/Onc ) and Dr. Leyva as outpatient. She used to take hydroxyurea, but stopped 6 months ago at direction of Dr. Darryn Hernandez. She denies chest pain, SOB, headache, vision problems, abdominal pain, N/V. Objective - Vital Signs/Intake and Output Vital Signs (last 24 hours): Temp Pulse Resp BP Pulse Ox 98.7 F 106 H 20 100/63 99 05/14/17 15:00 05/14/17 15:00 05/14/17 15:00 05/14/17 15:00 05/14/17 15:00 Intake and Output: 05/14/17 05/14/17 06:59 18:59 Intake Total 450 Balance 450 - Medications Medications: Current Medications Diphenhydramine HCl (Benadryl) 25 mg IVP Q3 [facility] Last Admin: 05/14/17 16:16 Dose: 25 mg Enoxaparin Sodium (Lovenox) 40 mg SC DAILY [facility] Last Admin: 05/14/17 10:10 Dose: Not Given Folic Acid (Folic Acid) 2 mg PO DAILY [facility] Last Admin: 05/14/17 10:09 Dose: 2 mg Hydromorphone HCl (Dilaudid) 2 mg IVP Q3 [facility] Last Admin: 05/14/17 16:19 Dose: 2 mg Pantoprazole Sodium (Protonix Ec Tab) 40 mg PO DAILY [facility] Last Admin: 05/14/17 10:09 Dose: 40 mg Trimethoprim/Sulfamethoxazole (Bactrim Ds Tab) 1 tab PO Q12H [facility] PRN Reason: Protocol Last Admin: 05/14/17 10:09 Dose: 1 tab - Labs Labs: 05/14/17 12:02 05/14/17 12:02 - Constitutional Appears: Well - Head Exam Head Exam: ATRAUMATIC, NORMAL INSPECTION, NORMOCEPHALIC - Eye Exam Eye Exam: EOMI, Normal appearance, PERRL Pupil Exam: NORMAL ACCOMODATION, PERRL - ENT Exam ENT Exam: Mucous Membranes Moist, Normal Exam - Neck Exam Neck Exam: Full ROM, Normal Inspection. absent: Lymphadenopathy - Respiratory Exam Respiratory Exam: Decreased Breath Sounds - Cardiovascular Exam Cardiovascular Exam: REGULAR RHYTHM, +S1, +S2 - GI/Abdominal Exam GI & Abdominal Exam: Soft, Diminished Bowel Sounds - Rectal Exam Rectal Exam: Deferred Assessment and Plan (1) Anemia Status: Acute (2) Leukocytosis Status: Acute (3) Sickle cell pain crisis Status: Acute (4) UTI (urinary tract infection) Status: Acute (5) Animal bite wound Status: Acute (6) Chronic pain disorder Status: Acute (7) Leg pain Status: Acute (8) Leukocytosis Status: Acute (9) Myalgia Status: Acute (10) Neurogenic bladder Status: Acute (11) Pain Status: Acute (12) Severe anemia Status: Acute (13) Sickle cell anemia Status: Acute (14) Sickle cell anemia with pain Status: Acute - Assessment and Plan (Free Text) Plan: Pain screencase seen and d.w staff and resident, concurred with finding and management.. Is seen oxygen IV fluid ID consult Bactrim BUN UCS as needed Straight cath the patient compliant encouraged
--- NOTE | 2017-05-14 23:02 | CP.PCM.PN ---
Subjective - Date & Time of Evaluation Date of Evaluation: 05/14/17 Time of Evaluation: 23:02 - Subjective Subjective: AFEBRILE, PATIENT AMBULATING WITHOUT PAIN. STILL COMPLAINS OF BACK PAIN AND LEG PAINS LABS REVIEWED; WBC 23.7 h/h 5.8/17.6 Creatinine 1.6/BUN 25 Potassium 5.7 lfts increasing transaminases. Bilirubin 2.1. URINE CULTURE 05/12/17 GNR- CLEAN-CATCH seen by hematology Objective - Vital Signs/Intake and Output Vital Signs (last 24 hours): Temp Pulse Resp BP Pulse Ox 98.7 F 106 H 20 100/63 99 05/14/17 15:00 05/14/17 15:00 05/14/17 15:00 05/14/17 15:00 05/14/17 15:00 - Medications Medications: Current Medications Diphenhydramine HCl (Benadryl) 25 mg IVP Q3 [facility] Last Admin: 05/14/17 22:00 Dose: 25 mg Enoxaparin Sodium (Lovenox) 40 mg SC DAILY [facility] Last Admin: 05/14/17 10:10 Dose: Not Given Folic Acid (Folic Acid) 2 mg PO DAILY [facility] Last Admin: 05/14/17 10:09 Dose: 2 mg Hydromorphone HCl (Dilaudid) 2 mg IVP Q3 [facility] Last Admin: 05/14/17 22:00 Dose: 2 mg Pantoprazole Sodium (Protonix Ec Tab) 40 mg PO DAILY [facility] Last Admin: 05/14/17 10:09 Dose: 40 mg Trimethoprim/Sulfamethoxazole (Bactrim Ds Tab) 1 tab PO Q12H [facility] PRN Reason: Protocol Last Admin: 05/14/17 22:02 Dose: 1 tab - Labs Labs: 05/14/17 12:02 05/14/17 12:02 - Constitutional Appears: No Acute Distress - Head Exam Head Exam: NORMAL INSPECTION - Eye Exam Eye Exam: EOMI, PERRL, Scleral icterus - ENT Exam ENT Exam: Normal Oropharynx - Neck Exam Neck Exam: Normal Inspection - Respiratory Exam Respiratory Exam: Clear to Ausculation Bilateral - Cardiovascular Exam Cardiovascular Exam: Tachycardia, +S1, +S2 - GI/Abdominal Exam GI & Abdominal Exam: Soft, Normal Bowel Sounds - Extremities Exam Extremities Exam: Pedal Edema. absent: Calf Tenderness - Neurological Exam Neurological Exam: Awake, CN II-XII Intact, Normal Gait, Oriented x3 - Psychiatric Exam Psychiatric exam: Normal Mood - Skin Skin Exam: Normal Color, Warm Assessment and Plan (1) Sickle cell pain crisis Status: Acute (2) Leukocytosis Status: Acute (3) UTI (urinary tract infection) Status: Acute (4) Anemia Status: Acute (5) Neurogenic bladder Status: Acute - Assessment and Plan (Free Text) Plan: *By mouth Bactrim 1 double strength twice a day DECREASE DOSE TO 1 SINGLE STRENGTH bACTRIM TWICE A DAY AND INCREASING CREATININE AND BUN. ALSO POTASSIUM INCREASING TO 5.7 TODAY ( as urine culture 05/06/17 showing Escherichia coli sensitive to Bactrim.) Follow-up bmp in am evaluation as patient has bilateral hydronephrosis and bilateral ureteral stents. Monitor H&H.
[2017-05-15] MEDS: DiphenhydrAMINE 50 mg/ml Inj IVP SCH ×8 (01:14→22:48)
[2017-05-15 07:01] LABS: BASO # 0.2 K/uL (0.0-0.2); BASO % 0.7 % (0.0-2.0); EOS # 1.1 K/uL (0.0-0.7); LYMPH # 5.1 K/uL (1.0-4.3); LYMPH % 23.8 % (20.0-40.0); MEAN CELL VOLUME 85.7 fL (81.0-99.0); MEAN CORPUSCULAR HEMOGLOBIN 28.9 pg (27.0-31.0); MEAN CORPUSCULAR HGB CONC 33.7 g/dL (33.0-37.0); MEAN PLATELET VOLUME 9.4 fL (7.2-11.7); MONO # 2.1 K/uL (0.0-0.8); MONO % 9.6 % (0.0-10.0); NEUT # 13.1 K/uL (1.8-7.0); NEUT % 60.9 % (50.0-75.0); NRBC % 0.4 % (0.0-2.0); RBC 1.79 Mil/uL (3.80-5.20); RED CELL DISTRIBUTION WIDTH 17.9 % (11.5-14.5); WHITE BLOOD COUNT 21.5 K/uL (4.8-10.8)
[2017-05-15 07:05] LABS: HEMOGLOBIN 5.2 g/dL (11.0-16.0)
[2017-05-15 07:07] LABS: ALB/GLOB RATIO 0.7 (1.0-2.1); ALBUMIN 3.1 g/dL (3.5-5.0); CALCIUM 7.8 mg/dl (8.6-10.4)
[2017-05-15] MEDS: Tmp-Smz 400 mg-80 mg SS Tab PO SCH ×2 (10:01→18:56)
[2017-05-15] MEDS: Pantoprazole 40 mg EC Tab PO SCH (10:01)
[2017-05-15] MEDS: Enoxaparin 40 mg Syringe SC SCH (10:02)
--- NOTE | 2017-05-15 13:33 | CP.PCM.PN ---
Subjective - Date & Time of Evaluation Date of Evaluation: 05/15/17 Time of Evaluation: 07:30 - Subjective Subjective: clinically same Objective - Vital Signs/Intake and Output Vital Signs (last 24 hours): Temp Pulse Resp BP Pulse Ox 98.2 F 102 H 20 112/64 96 05/15/17 07:34 05/15/17 07:34 05/15/17 07:34 05/15/17 07:34 05/15/17 07:34 Intake and Output: 05/15/17 05/15/17 06:59 18:59 Intake Total 360 Balance 360 - Medications Medications: Current Medications Diphenhydramine HCl (Benadryl) 25 mg IVP Q3 [facility] Last Admin: 05/15/17 13:13 Dose: 25 mg Enoxaparin Sodium (Lovenox) 40 mg SC DAILY [facility] Last Admin: 05/15/17 10:02 Dose: Not Given Folic Acid (Folic Acid) 2 mg PO DAILY [facility] Last Admin: 05/15/17 10:01 Dose: 2 mg Hydromorphone HCl (Dilaudid) 2 mg IVP Q3 [facility] Last Admin: 05/15/17 13:13 Dose: 2 mg Pantoprazole Sodium (Protonix Ec Tab) 40 mg PO DAILY [facility] Last Admin: 05/15/17 10:01 Dose: 40 mg Trimethoprim/Sulfamethoxazole (Bactrim Ss Tab) 1 tab PO BID [facility] PRN Reason: Protocol Last Admin: 05/15/17 10:01 Dose: 1 tab - Labs Labs: 05/15/17 06:30 05/15/17 06:30 - Constitutional Appears: Well - Head Exam Head Exam: ATRAUMATIC, NORMAL INSPECTION, NORMOCEPHALIC - Eye Exam Eye Exam: EOMI, Normal appearance, PERRL Pupil Exam: NORMAL ACCOMODATION, PERRL - ENT Exam ENT Exam: Mucous Membranes Moist, Normal Exam - Neck Exam Neck Exam: Full ROM, Normal Inspection. absent: Lymphadenopathy - Respiratory Exam Respiratory Exam: Decreased Breath Sounds - Cardiovascular Exam Cardiovascular Exam: REGULAR RHYTHM, +S1, +S2 - GI/Abdominal Exam GI & Abdominal Exam: Soft, Diminished Bowel Sounds - Rectal Exam Rectal Exam: Deferred
--- NOTE | 2017-05-15 14:56 | CP.PCM.PN ---
Subjective - Date & Time of Evaluation Date of Evaluation: 05/15/17 Time of Evaluation: 14:54 - Subjective Subjective: PT SEEN SITTING UPRIGHT IN BED. C/O FEELING GENERAL FATIGUE TODAY WITH HER BOUTS OF CHRONIC PAIN. [employer] SUPERVISOR DISCUSSED WITH PT DR. VEGAS'S RECOMMENDATIONS FOR TRANSFUSION ON 1 UNIT PRBC TODAY. PT IS IN AGREEMENT. WILL OBTAIN CONSENT FOR TRANSFUSION WELL. ORDER ALSO PLACED FOR NURSING STAFF TO PROVIDE PT WITH THE URINARY CATHETERS FOR HER TO CATH HERSELF (H/O NEUROGENIC BLADDER). FOR REPEAT LABS IN THE MORNING; NO FURTHER ORDERS. Objective - Vital Signs/Intake and Output Vital Signs (last 24 hours): Temp Pulse Resp BP Pulse Ox 98.2 F 102 H 20 112/64 96 05/15/17 07:34 05/15/17 07:34 05/15/17 07:34 05/15/17 07:34 05/15/17 07:34 Intake and Output: 05/15/17 05/15/17 06:59 18:59 Intake Total 360 Balance 360 - Medications Medications: Current Medications Diphenhydramine HCl (Benadryl) 25 mg IVP Q3 [facility] Last Admin: 05/15/17 13:13 Dose: 25 mg Enoxaparin Sodium (Lovenox) 40 mg SC DAILY [facility] Last Admin: 05/15/17 10:02 Dose: Not Given Folic Acid (Folic Acid) 2 mg PO DAILY [facility] Last Admin: 05/15/17 10:01 Dose: 2 mg Hydromorphone HCl (Dilaudid) 2 mg IVP Q3 [facility] Last Admin: 05/15/17 13:13 Dose: 2 mg Pantoprazole Sodium (Protonix Ec Tab) 40 mg PO DAILY [facility] Last Admin: 05/15/17 10:01 Dose: 40 mg Trimethoprim/Sulfamethoxazole (Bactrim Ss Tab) 1 tab PO BID [facility] PRN Reason: Protocol Last Admin: 05/15/17 10:01 Dose: 1 tab - Labs Labs: 05/15/17 06:30 05/15/17 06:30
--- NOTE | 2017-05-15 20:03 | CP.PCM.PN ---
Subjective - Date & Time of Evaluation Date of Evaluation: 05/15/17 Time of Evaluation: 20:03 - Subjective Subjective: C/O PAIN BACK/AND B/L LEGS SEEN BY HEMATOLOGY. H/H 5.2/15.4 PT FOR 1 UNIT PRBC TODAY. LABS REVIEWED URINE CULTURE +VE E.COLI +VEESBL S -GENT/NITRO,BACTRIM. Objective - Vital Signs/Intake and Output Vital Signs (last 24 hours): Temp Pulse Resp BP Pulse Ox 98.4 F 112 H 20 102/72 98 05/15/17 19:51 05/15/17 19:51 05/15/17 19:51 05/15/17 19:51 05/15/17 15:00 Intake and Output: 05/15/17 05/16/17 18:59 06:59 Intake Total 840 0 Balance 840 0 - Medications Medications: Current Medications Diphenhydramine HCl (Benadryl) 25 mg IVP Q3 [facility] Last Admin: 05/15/17 18:56 Dose: 25 mg Enoxaparin Sodium (Lovenox) 40 mg SC DAILY [facility] Last Admin: 05/15/17 10:02 Dose: Not Given Folic Acid (Folic Acid) 2 mg PO DAILY [facility] Last Admin: 05/15/17 10:01 Dose: 2 mg Hydromorphone HCl (Dilaudid) 2 mg IVP Q3 [facility] Last Admin: 05/15/17 18:56 Dose: 2 mg Pantoprazole Sodium (Protonix Ec Tab) 40 mg PO DAILY [facility] Last Admin: 05/15/17 10:01 Dose: 40 mg Trimethoprim/Sulfamethoxazole (Bactrim Ss Tab) 1 tab PO BID [facility] PRN Reason: Protocol Last Admin: 05/15/17 18:56 Dose: 1 tab - Labs Labs: 05/15/17 06:30 05/15/17 06:30 - Constitutional Appears: No Acute Distress, Chronically Ill - Head Exam Head Exam: NORMAL INSPECTION - Eye Exam Eye Exam: EOMI, PERRL, Scleral icterus - ENT Exam ENT Exam: Normal Oropharynx - Neck Exam Neck Exam: Normal Inspection - Respiratory Exam Respiratory Exam: Clear to Ausculation Bilateral - Cardiovascular Exam Cardiovascular Exam: Tachycardia, REGULAR RHYTHM, +S1, +S2 - GI/Abdominal Exam GI & Abdominal Exam: Soft, Normal Bowel Sounds - Extremities Exam Extremities Exam: absent: Calf Tenderness, Pedal Edema - Neurological Exam Neurological Exam: Awake, CN II-XII Intact, Normal Gait, Oriented x3 - Psychiatric Exam Psychiatric exam: Normal Mood - Skin Skin Exam: Pallor, Warm Assessment and Plan (1) Sickle cell pain crisis Status: Acute (2) Leukocytosis Status: Acute (3) UTI (urinary tract infection) Status: Acute (4) Anemia Status: Acute (5) Neurogenic bladder Status: Acute - Assessment and Plan (Free Text) Plan: DECREASE DOSE TO 1 SINGLE STRENGTH bACTRIM TWICE A DAY INCREASING CREATININE AND BUN.05/14/17 ( as urine culture 05/06/17 showing Escherichia coli sensitive to Bactrim.) Follow-up bmp in am evaluation as patient has bilateral hydronephrosis and bilateral ureteral stents. Monitor H&H. ANALGESICS PER PMD.
--- NOTE | 2017-05-15 23:01 | CP.PCM.PN ---
Subjective - Date & Time of Evaluation Date of Evaluation: 05/15/17 Time of Evaluation: 19:00 - Subjective Subjective: Has some pain and fatigue Objective - Vital Signs/Intake and Output Vital Signs (last 24 hours): Temp Pulse Resp BP Pulse Ox 98.9 F 106 H 20 100/64 98 05/15/17 20:51 05/15/17 20:51 05/15/17 20:51 05/15/17 20:51 05/15/17 15:00 Intake and Output: 05/15/17 05/16/17 18:59 06:59 Intake Total 840 0 Balance 840 0 - Medications Medications: Current Medications Diphenhydramine HCl (Benadryl) 25 mg IVP Q3 [facility] Last Admin: 05/15/17 22:48 Dose: 25 mg Enoxaparin Sodium (Lovenox) 40 mg SC DAILY [facility] Last Admin: 05/15/17 10:02 Dose: Not Given Folic Acid (Folic Acid) 2 mg PO DAILY [facility] Last Admin: 05/15/17 10:01 Dose: 2 mg Hydromorphone HCl (Dilaudid) 2 mg IVP Q3 [facility] Last Admin: 05/15/17 22:48 Dose: 2 mg Pantoprazole Sodium (Protonix Ec Tab) 40 mg PO DAILY [facility] Last Admin: 05/15/17 10:01 Dose: 40 mg Trimethoprim/Sulfamethoxazole (Bactrim Ss Tab) 1 tab PO BID [facility] PRN Reason: Protocol Last Admin: 05/15/17 18:56 Dose: 1 tab - Labs Labs: 05/15/17 06:30 05/15/17 06:30 - Head Exam Head Exam: ATRAUMATIC - Eye Exam Eye Exam: Normal appearance - ENT Exam ENT Exam: Mucous Membranes Dry - Respiratory Exam Respiratory Exam: NORMAL BREATHING PATTERN - Cardiovascular Exam Cardiovascular Exam: +S1, +S2 - GI/Abdominal Exam GI & Abdominal Exam: Normal Bowel Sounds - Extremities Exam Extremities Exam: Normal Inspection Assessment and Plan (1) Sickle cell pain crisis Assessment & Plan: IV fluids, pain meds, folic acid, 02 via NC 1U PRBC today Status: Acute (2) Leukocytosis Assessment & Plan: on antibiotics reactive element from sickle cell disease Status: Acute (3) Sickle cell anemia Assessment & Plan: folic acid Status: Acute
[2017-05-16] MEDS: DiphenhydrAMINE 50 mg/ml Inj IVP SCH ×8 (01:45→22:05)
[2017-05-16 07:20] LABS: BASO # 0.2 K/uL (0.0-0.2); BASO % 0.8 % (0.0-2.0); EOS % 4.3 % (0.0-4.0); HEMOGLOBIN 6.9 g/dL (11.0-16.0); LYMPH # 6.1 K/uL (1.0-4.3); LYMPH % 27.6 % (20.0-40.0); MEAN CELL VOLUME 86.4 fL (81.0-99.0); MEAN CORPUSCULAR HEMOGLOBIN 29.4 pg (27.0-31.0); MONO # 1.9 K/uL (0.0-0.8); MONO % 8.7 % (0.0-10.0); NEUT % 58.6 % (50.0-75.0); NRBC % 0.6 % (0.0-2.0); RBC 2.35 Mil/uL (3.80-5.20); RED CELL DISTRIBUTION WIDTH 16.7 % (11.5-14.5); WHITE BLOOD COUNT 22.1 K/uL (4.8-10.8)
[2017-05-16 08:20] LABS: ALB/GLOB RATIO 0.7 (1.0-2.1); ALBUMIN 3.5 g/dL (3.5-5.0); CALCIUM 7.7 mg/dl (8.6-10.4)
[2017-05-16] MEDS: Pantoprazole 40 mg EC Tab PO SCH (09:01)
[2017-05-16] MEDS: Tmp-Smz 400 mg-80 mg SS Tab PO SCH ×2 (09:01→18:14)
[2017-05-16] MEDS: Enoxaparin 40 mg Syringe SC SCH (09:03)
--- NOTE | 2017-05-16 18:22 | CP.PCM.PN ---
Subjective - Date & Time of Evaluation Date of Evaluation: 05/16/17 Time of Evaluation: 08:40 - Subjective Subjective: clinically same Objective - Vital Signs/Intake and Output Vital Signs (last 24 hours): Temp Pulse Resp BP Pulse Ox 98.5 F 102 H 20 109/74 99 05/16/17 16:50 05/16/17 16:50 05/16/17 16:50 05/16/17 16:50 05/16/17 16:50 Intake and Output: 05/16/17 05/16/17 06:59 18:59 Intake Total 1110 360 Output Total 2 Balance 1108 360 - Medications Medications: Current Medications Diphenhydramine HCl (Benadryl) 25 mg IVP Q3 [facility] Last Admin: 05/16/17 16:05 Dose: 25 mg Enoxaparin Sodium (Lovenox) 40 mg SC DAILY [facility] Last Admin: 05/16/17 09:03 Dose: Not Given Folic Acid (Folic Acid) 2 mg PO DAILY [facility] Last Admin: 05/16/17 09:05 Dose: 2 mg Hydromorphone HCl (Dilaudid) 2 mg IVP Q3 [facility] Last Admin: 05/16/17 16:05 Dose: 2 mg Pantoprazole Sodium (Protonix Ec Tab) 40 mg PO DAILY [facility] Last Admin: 05/16/17 09:01 Dose: 40 mg Trimethoprim/Sulfamethoxazole (Bactrim Ss Tab) 1 tab PO BID [facility] PRN Reason: Protocol Last Admin: 05/16/17 18:14 Dose: 1 tab - Labs Labs: 05/16/17 07:09 05/16/17 07:09 - Constitutional Appears: Well - Head Exam Head Exam: ATRAUMATIC, NORMAL INSPECTION, NORMOCEPHALIC - Eye Exam Eye Exam: EOMI, Normal appearance, PERRL Pupil Exam: NORMAL ACCOMODATION, PERRL - ENT Exam ENT Exam: Mucous Membranes Moist, Normal Exam - Neck Exam Neck Exam: Full ROM, Normal Inspection. absent: Lymphadenopathy - Respiratory Exam Respiratory Exam: Decreased Breath Sounds - Cardiovascular Exam Cardiovascular Exam: REGULAR RHYTHM, +S1, +S2 - GI/Abdominal Exam GI & Abdominal Exam: Soft, Diminished Bowel Sounds - Rectal Exam Rectal Exam: Deferred
[2017-05-17] MEDS: DiphenhydrAMINE 50 mg/ml Inj IVP SCH ×8 (01:00→22:00)
[2017-05-17 07:37] LABS: BASO # 0.2 K/uL (0.0-0.2); BASO % 0.9 % (0.0-2.0); EOS # 1.2 K/uL (0.0-0.7); EOS % 6.6 % (0.0-4.0); LYMPH # 4.9 K/uL (1.0-4.3); LYMPH % 26.7 % (20.0-40.0); MEAN CELL VOLUME 87.1 fL (81.0-99.0); MEAN CORPUSCULAR HEMOGLOBIN 29.5 pg (27.0-31.0); MEAN CORPUSCULAR HGB CONC 33.8 g/dL (33.0-37.0); MONO # 1.9 K/uL (0.0-0.8); MONO % 10.2 % (0.0-10.0); NEUT # 10.2 K/uL (1.8-7.0); NEUT % 55.6 % (50.0-75.0); NRBC % 0.2 % (0.0-2.0); RBC 2.11 Mil/uL (3.80-5.20); RED CELL DISTRIBUTION WIDTH 17.1 % (11.5-14.5); WHITE BLOOD COUNT 18.5 K/uL (4.8-10.8)
[2017-05-17 07:39] LABS: HEMOGLOBIN 6.2 g/dL (11.0-16.0)
[2017-05-17 07:46] LABS: ALB/GLOB RATIO 0.7 (1.0-2.1)
[2017-05-17] MEDS: Pantoprazole 40 mg EC Tab PO SCH (10:32)
[2017-05-17] MEDS: Tmp-Smz 400 mg-80 mg SS Tab PO SCH ×2 (10:33→19:16)
[2017-05-17] MEDS: Enoxaparin 40 mg Syringe SC SCH (10:35)
--- NOTE | 2017-05-17 11:18 | CP.PCM.PN ---
Addendum entered and electronically signed by Enoc Spence DO 05/18/17 04:56: Spoke to Dr. Matias, urologist, who saw pt on last admission. His recommendations: - no need for consult at this time - pt should see her private urologist who placed bilateral ureteral stents for follow up as stents are overdue for change - if pt cannot see private urologist, she can follow up in his office as outpatient Addition to plan: Hx of hydronephrosis f/u Renal US to assess change Original Note: <Enoc Spence - Last Filed: 05/17/17 11:14> Subjective - Date & Time of Evaluation Date of Evaluation: 05/17/17 Time of Evaluation: 11:14 - Subjective Subjective: PGY-[address] Hernandez's Service: Pt seen and examined at bedside. Nursing reports no acute events overnight. Patient reports mildly improved fatigue after transfusion over the weekend. Denies dizziness/CP/lightheadedness. States her pain well-controlled on current pain regimen. Objective - Vital Signs/Intake and Output Vital Signs (last 24 hours): Temp Pulse Resp BP Pulse Ox 98.2 F 92 H 20 117/76 96 05/17/17 08:00 05/17/17 08:00 05/17/17 08:00 05/17/17 08:00 05/17/17 08:00 Intake and Output: 05/17/17 05/17/17 06:59 18:59 Intake Total 650 Output Total 600 Balance 50 - Medications Medications: Current Medications Diphenhydramine HCl (Benadryl) 25 mg IVP Q3 [facility] Last Admin: 05/17/17 10:33 Dose: 25 mg Enoxaparin Sodium (Lovenox) 40 mg SC DAILY [facility] Last Admin: 05/17/17 10:35 Dose: Not Given Folic Acid (Folic Acid) 2 mg PO DAILY [facility] Last Admin: 05/17/17 10:32 Dose: 2 mg Hydromorphone HCl (Dilaudid) 2 mg IVP Q3 [facility] Last Admin: 05/17/17 10:32 Dose: 2 mg Pantoprazole Sodium (Protonix Ec Tab) 40 mg PO DAILY [facility] Last Admin: 05/17/17 10:32 Dose: 40 mg Trimethoprim/Sulfamethoxazole (Bactrim Ss Tab) 1 tab PO BID [facility] PRN Reason: Protocol Last Admin: 05/17/17 10:33 Dose: 1 tab - Labs Labs: 05/17/17 07:14 05/17/17 07:14 - Additional Findings Additional findings: - Constitutional Appears: Non-toxic, No Acute Distress - Head Exam Head Exam: ATRAUMATIC, NORMAL INSPECTION - Eye Exam Eye Exam: EOMI, Normal appearance, Scleral icterus - ENT Exam ENT Exam: Mucous Membranes Moist - Neck Exam Neck Exam: Full ROM - Respiratory Exam Respiratory Exam: Clear to Ausculation Bilateral, NORMAL BREATHING PATTERN. absent: Rales, Rhonchi, Wheezes - Cardiovascular Exam Cardiovascular Exam: REGULAR RHYTHM, +S1, +S2 - GI/Abdominal Exam GI & Abdominal Exam: Soft, Normal Bowel Sounds. absent: Tenderness - Extremities Exam Extremities Exam: Normal Inspection. absent: Pedal Edema, Tenderness - Back Exam Back Exam: absent: CVA tenderness (L), CVA tenderness (R) - Neurological Exam Neurological Exam: Alert, Awake, Oriented x3 - Psychiatric Exam Psychiatric exam: Normal Affect, Normal Mood - Skin Skin Exam: Dry, Normal Color, Warm Assessment and Plan - Assessment and Plan (Free Text) Plan: Sickle cell Crisis Admit to med/surg Pt with LBP, leg pain; denies CP, SOB HGB 6.3 on (05/12/17), 6.2 today - s/p 1 unit RBC over the weekend Dr. Leyva Hem/Onc alliance consultant, help greatly appreciated - IVF, O2, Transfuse under Hgb 5 Folic acid 2mg PO daily Dilaudid 3mg IV q3hrs prn Benadryl 25mg IV Q3hrs prn Lovenox 40mg sc daily Urinary tract infection, ESBL + UA (05/12/17): 3+ LE, Nitrate negative, WBC 636, Moderate bacteria Urine Culture: ESBL Negative ID consult. Dr. Ruth Jones. recs appreciated. - Start SS Bactrim 1 tab PO Q12H (start 05/15/17) - Discontinued DS Bactrim 1 tab PO Q12H (start 05/13/17) Previous Admission: -Bladder US (05/01/17)- B/L ureteral stents with moderate hydronephrosis R>L -Ucx (04/28/17)- vancomycin resistant E. faecium Leukocytosis WBC increasing Etiology: UTI in setting of SSC ID consult. Dr. Ruth Jones. recs appreciated. -DS Bactrim 1 tab PO Q12H Transaminitis AST/ALT/ALK Phos 93/66/156 Tbili 1.6 Monitor Neurogenic bladder -straight cath PRN; patient is able to do herself Elevated creatinine Cr 1.5 today Will rehydrate today and monitor Electrolyte Imbalance - Mg 1.5, repleted GI/DVT ppx -lovenox 40mg SC daily -protonix 40mg PO daily SCDs not warranted; pt mobile Enoc Spence PGY2 Patient is medically stable to be discharged per Dr. Hernandez <Rosalina Hernandez - Last Filed: 05/19/17 08:15> Objective - Vital Signs/Intake and Output Vital Signs (last 24 hours): Temp Pulse Resp BP Pulse Ox 98.6 F 108 H 20 103/72 100 05/19/17 00:04 05/19/17 00:04 05/19/17 00:04 05/19/17 00:04 05/19/17 00:04 - Medications Medications: Current Medications Diphenhydramine HCl (Benadryl) 25 mg IVP Q3 PRN PRN Reason: Anaphylaxis Last Admin: 05/19/17 06:17 Dose: 25 mg Folic Acid (Folic Acid) 2 mg PO DAILY [facility] Last Admin: 05/18/17 10:17 Dose: 2 mg Hydromorphone HCl (Dilaudid) 2 mg IVP Q3 PRN PRN Reason: Pain, severe (8-10) Last Admin: 05/19/17 06:16 Dose: 2 mg Meropenem 500 mg/ Sodium (Chloride) 100 mls @ 100 mls/hr IVPB Q8 [facility] PRN Reason: Protocol Last Admin: 05/19/17 06:13 Dose: 100 mls/hr Pantoprazole Sodium (Protonix Ec Tab) 40 mg PO DAILY [facility] Last Admin: 05/18/17 10:16 Dose: 40 mg - Labs Labs: 05/19/17 07:20 05/18/17 07:37 Attending/Attestation - Attestation I have personally seen and examined this patient.: Yes I have fully participated in the care of the patient.: Yes I have reviewed all pertinent clinical information, including history, physical exam and plan: Yes Notes (Text): 05/19/17 08:14 case seen and dArchiew staff and resident, concurred with finding and management..
[2017-05-17] MEDS ORDERED: Sodium Chloride 0.9% 1,000 ML IV SCH (11:30)
[2017-05-17] MEDS ORDERED: Magnesium Sulfate 1 gm in D5W 1 GM/100 ML BAG IVPB ONE (11:30)
--- NOTE | 2017-05-17 14:19 | CP.PCM.PN ---
Subjective - Date & Time of Evaluation Date of Evaluation: 05/17/17 Time of Evaluation: 08:20 - Subjective Subjective: clinically same Objective - Vital Signs/Intake and Output Vital Signs (last 24 hours): Temp Pulse Resp BP Pulse Ox 98.2 F 92 H 20 117/76 96 05/17/17 08:00 05/17/17 08:00 05/17/17 08:00 05/17/17 08:00 05/17/17 08:00 Intake and Output: 05/17/17 05/17/17 06:59 18:59 Intake Total 650 Output Total 600 Balance 50 - Medications Medications: Current Medications Diphenhydramine HCl (Benadryl) 25 mg IVP Q3 [facility] Last Admin: 05/17/17 13:29 Dose: 25 mg Enoxaparin Sodium (Lovenox) 40 mg SC DAILY [facility] Last Admin: 05/17/17 10:35 Dose: Not Given Folic Acid (Folic Acid) 2 mg PO DAILY [facility] Last Admin: 05/17/17 10:32 Dose: 2 mg Hydromorphone HCl (Dilaudid) 2 mg IVP Q3 [facility] Last Admin: 05/17/17 13:30 Dose: 2 mg Sodium Chloride (Sodium Chloride 0.9%) 1,000 mls @ 100 mls/hr IV .Q10H [facility] Last Admin: 05/17/17 12:06 Dose: 100 mls/hr Pantoprazole Sodium (Protonix Ec Tab) 40 mg PO DAILY [facility] Last Admin: 05/17/17 10:32 Dose: 40 mg Trimethoprim/Sulfamethoxazole (Bactrim Ss Tab) 1 tab PO BID [facility] PRN Reason: Protocol Last Admin: 05/17/17 10:33 Dose: 1 tab - Labs Labs: 05/17/17 07:14 05/17/17 07:14 - Constitutional Appears: Well - Head Exam Head Exam: ATRAUMATIC, NORMAL INSPECTION, NORMOCEPHALIC - Eye Exam Eye Exam: EOMI, Normal appearance, PERRL Pupil Exam: NORMAL ACCOMODATION, PERRL - ENT Exam ENT Exam: Mucous Membranes Moist, Normal Exam - Neck Exam Neck Exam: Full ROM, Normal Inspection. absent: Lymphadenopathy - Respiratory Exam Respiratory Exam: Decreased Breath Sounds - Cardiovascular Exam Cardiovascular Exam: REGULAR RHYTHM, +S1, +S2 - GI/Abdominal Exam GI & Abdominal Exam: Soft, Diminished Bowel Sounds - Rectal Exam Rectal Exam: Deferred Assessment and Plan - Assessment and Plan (Free Text) Plan: Sickle cell Crisis Admit to med/surg Pt with LBP, leg pain; denies CP, SOB HGB 6.3 on (05/12/17), 6.2 today - s/p 1 unit RBC over the weekend Dr. Leyva Hem/Onc managing consultant clinical professor, help greatly appreciated - IVF, O2, Transfuse under Hgb 5 Folic acid 2mg PO daily Dilaudid 3mg IV q3hrs prn Benadryl 25mg IV Q3hrs prn Lovenox 40mg sc daily Urinary tract infection, ESBL + UA (05/12/17): 3+ LE, Nitrate negative, WBC 636, Moderate bacteria Urine Culture: ESBL Negative ID consult. Dr. Ruth Jones. recs appreciated. - Start SS Bactrim 1 tab PO Q12H (start 05/15/17) - Discontinued DS Bactrim 1 tab PO Q12H (start 05/13/17) Previous Admission: -Bladder US (05/01/17)- B/L ureteral stents with moderate hydronephrosis R>L -Ucx (04/28/17)- vancomycin resistant E. faecium Leukocytosis WBC increasing Etiology: UTI in setting of SSC ID consult. Dr. Ruth Jones. recs appreciated. -DS Bactrim 1 tab PO Q12H Transaminitis AST/ALT/ALK Phos 93/66/156 Tbili 1.6 Monitor Neurogenic bladder -straight cath PRN; patient is able to do herself Elevated creatinine Cr 1.5 today Will rehydrate today and monitor Electrolyte Imbalance - Mg 1.5, repleted GI/DVT ppx -lovenox 40mg SC daily -protonix 40mg PO daily SCDs not warranted; pt mobile
--- NOTE | 2017-05-17 23:45 | CP.PCM.PN ---
Subjective - Date & Time of Evaluation Date of Evaluation: 05/17/17 Time of Evaluation: 18:35 - Subjective Subjective: Feels better s/p PRBC transfusion Objective - Vital Signs/Intake and Output Vital Signs (last 24 hours): Temp Pulse Resp BP Pulse Ox 98.4 F 118 H 20 104/73 96 05/17/17 16:00 05/17/17 16:00 05/17/17 16:00 05/17/17 16:00 05/17/17 16:00 Intake and Output: 05/17/17 05/18/17 18:59 06:59 Intake Total 880 Balance 880 - Medications Medications: Current Medications Diphenhydramine HCl (Benadryl) 25 mg IVP Q3 [facility] Last Admin: 05/17/17 22:00 Dose: 25 mg Folic Acid (Folic Acid) 2 mg PO DAILY [facility] Last Admin: 05/17/17 10:32 Dose: 2 mg Hydromorphone HCl (Dilaudid) 2 mg IVP Q3 [facility] Last Admin: 05/17/17 22:00 Dose: 2 mg Pantoprazole Sodium (Protonix Ec Tab) 40 mg PO DAILY [facility] Last Admin: 05/17/17 10:32 Dose: 40 mg Trimethoprim/Sulfamethoxazole (Bactrim Ss Tab) 1 tab PO BID [facility] PRN Reason: Protocol Last Admin: 05/17/17 19:16 Dose: 1 tab - Labs Labs: 05/17/17 07:14 05/17/17 07:14 - Head Exam Head Exam: ATRAUMATIC - Eye Exam Eye Exam: Normal appearance - ENT Exam ENT Exam: Mucous Membranes Dry - Respiratory Exam Respiratory Exam: NORMAL BREATHING PATTERN - Cardiovascular Exam Cardiovascular Exam: +S1, +S2 - GI/Abdominal Exam GI & Abdominal Exam: Normal Bowel Sounds Assessment and Plan (1) Sickle cell pain crisis Assessment & Plan: IV fluids, pain meds, folic acid, 02 via NC s/p PRBC transfusion Status: Acute (2) Leukocytosis Assessment & Plan: on antibiotics reactive from sickle cell Status: Acute (3) Sickle cell anemia Assessment & Plan: outpatient folic acid Status: Acute
[2017-05-18] MEDS: DiphenhydrAMINE 50 mg/ml Inj IVP SCH ×3 (01:03→06:47)
[2017-05-18 07:49] LABS: BASO # 0.1 K/uL (0.0-0.2); BASO % 0.8 % (0.0-2.0); EOS # 1.2 K/uL (0.0-0.7); EOS % 6.9 % (0.0-4.0); LYMPH # 4.8 K/uL (1.0-4.3); LYMPH % 26.7 % (20.0-40.0); MEAN CELL VOLUME 87.2 fL (81.0-99.0); MEAN CORPUSCULAR HEMOGLOBIN 30.4 pg (27.0-31.0); MEAN CORPUSCULAR HGB CONC 34.8 g/dL (33.0-37.0); MEAN PLATELET VOLUME 8.9 fL (7.2-11.7); MONO # 1.6 K/uL (0.0-0.8); MONO % 9.1 % (0.0-10.0); NEUT # 10.2 K/uL (1.8-7.0); NEUT % 56.5 % (50.0-75.0); NRBC % 0.1 % (0.0-2.0); RBC 2.14 Mil/uL (3.80-5.20); RED CELL DISTRIBUTION WIDTH 18.3 % (11.5-14.5); WHITE BLOOD COUNT 18.1 K/uL (4.8-10.8)
[2017-05-18 07:52] LABS: HEMOGLOBIN 6.5 g/dL (11.0-16.0)
[2017-05-18 08:10] LABS: ALB/GLOB RATIO 0.7 (1.0-2.1); ALBUMIN 3.4 g/dL (3.5-5.0); CALCIUM 7.8 mg/dl (8.6-10.4)
--- NOTE | 2017-05-18 09:50 | CP.PCM.PN ---
<BalajialanBethMalcolm S - Last Filed: 05/18/17 15:16> Subjective - Date & Time of Evaluation Date of Evaluation: 05/18/17 Time of Evaluation: 09:50 - Subjective Subjective: Progress note for Dr. Hernandez's Service Pt seen and examined at bedside. She states that she is feeling ok today and continues to have pains mostly in her legs. Medications do provided relief. No acute complaints. Objective - Vital Signs/Intake and Output Vital Signs (last 24 hours): Temp Pulse Resp BP Pulse Ox 98.3 F 90 20 111/76 100 05/18/17 07:23 05/18/17 07:23 05/18/17 07:23 05/18/17 07:23 05/18/17 07:23 - Medications Medications: Current Medications Diphenhydramine HCl (Benadryl) 25 mg IVP Q3 [facility] Last Admin: 05/18/17 06:47 Dose: 25 mg Folic Acid (Folic Acid) 2 mg PO DAILY [facility] Last Admin: 05/17/17 10:32 Dose: 2 mg Hydromorphone HCl (Dilaudid) 2 mg IVP Q3 PRN PRN Reason: Pain, severe (8-10) Pantoprazole Sodium (Protonix Ec Tab) 40 mg PO DAILY [facility] Last Admin: 05/17/17 10:32 Dose: 40 mg Trimethoprim/Sulfamethoxazole (Bactrim Ss Tab) 1 tab PO BID AP PRN Reason: Protocol Last Admin: 05/17/17 19:16 Dose: 1 tab - Labs Labs: 05/18/17 07:37 05/18/17 07:37 - Constitutional Appears: No Acute Distress - Head Exam Head Exam: ATRAUMATIC, NORMOCEPHALIC - Eye Exam Eye Exam: EOMI - ENT Exam ENT Exam: Mucous Membranes Moist - Respiratory Exam Respiratory Exam: Clear to Ausculation Bilateral, NORMAL BREATHING PATTERN - Cardiovascular Exam Cardiovascular Exam: REGULAR RHYTHM, +S1, +S2 - GI/Abdominal Exam GI & Abdominal Exam: Distended (mild), Soft. absent: Tenderness - Neurological Exam Neurological Exam: Alert, Awake, Oriented x3 - Psychiatric Exam Psychiatric exam: Normal Affect, Normal Mood - Skin Skin Exam: Dry, Warm Assessment and Plan - Assessment and Plan (Free Text) Plan: Sickle cell Crisis Admit to med/surg Pt with LBP, leg pain; denies CP, SOB HGB 6.3 on (05/12/17), 6.5 today 05/18 - s/p 1 unit RBC 05/15 Dr. Leyva Hem/Onc sr technical sales consultant, help greatly appreciated - IVF, O2, Transfuse under Hgb 5 Folic acid 2mg PO daily Dilaudid 2mg IV q3hrs prn Benadryl 25mg IV Q3hrs prn Urinary tract infection, ESBL + UA (05/12/17): 3+ LE, Nitrate negative, WBC 636, Moderate bacteria Urine Culture: ESBL Negative ID consult. Dr. Ruth Jones. recs appreciated. - Start SS Bactrim 1 tab PO Q12H (start 05/15/17) - Discontinued DS Bactrim 1 tab PO Q12H (start 05/13/17) Case discussed with Dr. Meño Matias, urologist, who saw pt on last admission. His recommendations: - no need for consult at this time - pt should see her private urologist who placed bilateral ureteral stents for follow up as stents are overdue for change - if pt cannot see private urologist, she can follow up in his office as outpatient Given that this patient has a hx of hydronephrosis Renal US ordered to assess change Previous Admission: -Bladder US (05/01/17)- B/L ureteral stents with moderate hydronephrosis R>L -Ucx (04/28/17)- vancomycin resistant E. faecium Leukocytosis WBC trending down- 18.1 05/18 Etiology: UTI in setting of SSC ID consult. Dr. Ruth Jones. recs appreciated. -SS Bactrim 1 tab PO Q12H Transaminitis- worsening AST/ALT/ALK Phos 126/78/195 Tbili 1.8 Monitor Neurogenic bladder -straight cath PRN; patient is able to do herself Elevated creatinine Cr 1.4 today 05/18 Will continue to monitor GI/DVT ppx -protonix 40mg PO daily SCDs not warranted; pt mobile Lovenox discontinued 05/17 Plan for D/C tomorrow with outpatient follow up Case discussed with Dr. Hernandez All management as per Dr. Hernandez <Rosalina Hernandez - Last Filed: 05/19/17 08:13> Objective - Vital Signs/Intake and Output Vital Signs (last 24 hours): Temp Pulse Resp BP Pulse Ox 98.6 F 108 H 20 103/72 100 05/19/17 00:04 05/19/17 00:04 05/19/17 00:04 05/19/17 00:04 05/19/17 00:04 - Medications Medications: Current Medications Diphenhydramine HCl (Benadryl) 25 mg IVP Q3 PRN PRN Reason: Anaphylaxis Last Admin: 05/19/17 06:17 Dose: 25 mg Folic Acid (Folic Acid) 2 mg PO DAILY [facility] Last Admin: 05/18/17 10:17 Dose: 2 mg Hydromorphone HCl (Dilaudid) 2 mg IVP Q3 PRN PRN Reason: Pain, severe (8-10) Last Admin: 05/19/17 06:16 Dose: 2 mg Meropenem 500 mg/ Sodium (Chloride) 100 mls @ 100 mls/hr IVPB Q8 [facility] PRN Reason: Protocol Last Admin: 05/19/17 06:13 Dose: 100 mls/hr Pantoprazole Sodium (Protonix Ec Tab) 40 mg PO DAILY [facility] Last Admin: 05/18/17 10:16 Dose: 40 mg - Labs Labs: 05/19/17 07:20 05/18/17 07:37 Attending/Attestation - Attestation I have personally seen and examined this patient.: Yes I have fully participated in the care of the patient.: Yes I have reviewed all pertinent clinical information, including history, physical exam and plan: Yes Notes (Text): 05/19/17 08:13 case seen and d.w staff and resident, concurred with finding and management..
[2017-05-18] MEDS: HYDROmorphone 1 mg/ml ISec IVP PRN ×5 (10:11→23:57)
[2017-05-18] MEDS: DiphenhydrAMINE 50 mg/ml Inj IVP PRN ×5 (10:15→23:53)
[2017-05-18] MEDS: Pantoprazole 40 mg EC Tab PO SCH (10:16)
[2017-05-18] MEDS: Tmp-Smz 400 mg-80 mg SS Tab PO SCH (10:17)
--- NOTE | 2017-05-18 15:09 | US ---
PROCEDURE: Ultrasound of the Kidneys HISTORY: hx of hydronephrosis COMPARISON: None available. TECHNIQUE: Sonogram of the kidneys. FINDINGS: RIGHT KIDNEY: Measures: 10.9 cm. Normal in size, contour and echogenicity. No nephrolithiasis. Again seen is severe hydronephrosis. LEFT KIDNEY: Measures: 13.1 cm. Normal in size, contour and echogenicity. No nephrolithiasis. Again seen is moderate hydronephrosis. OTHER FINDINGS: Bilateral ureteral stents are visualized. Note is made of multiple hypoechoic lesions in the spleen, the largest measures 5.1. IMPRESSION: Severe right and moderate left hydronephrosis. Bilateral stents remain in place. Multiple variable-sized lesions in the spleen, the differential considerations include metastasis, lymphoma, abscess and granulomatous disease.
--- NOTE | 2017-05-18 15:43 | CP.PCM.PN ---
Subjective - Date & Time of Evaluation Date of Evaluation: 05/18/17 Time of Evaluation: 08:00 - Subjective Subjective: clinically same Objective - Vital Signs/Intake and Output Vital Signs (last 24 hours): Temp Pulse Resp BP Pulse Ox 98.3 F 90 20 111/76 100 05/18/17 07:23 05/18/17 07:23 05/18/17 07:23 05/18/17 07:23 05/18/17 07:23 - Medications Medications: Current Medications Diphenhydramine HCl (Benadryl) 25 mg IVP Q3 PRN PRN Reason: Anaphylaxis Last Admin: 05/18/17 13:43 Dose: 25 mg Folic Acid (Folic Acid) [address] [facility] Last Admin: 05/18/17 10:17 Dose: 2 mg Hydromorphone HCl (Dilaudid) 2 mg IVP Q3 PRN PRN Reason: Pain, severe (8-10) Last Admin: 05/18/17 13:43 Dose: 2 mg Pantoprazole Sodium (Protonix Ec Tab) [address] [facility] Last Admin: 05/18/17 10:16 Dose: 40 mg Trimethoprim/Sulfamethoxazole (Bactrim Ss Tab) 1 tab PO BID [facility] PRN Reason: Protocol Last Admin: 05/18/17 10:17 Dose: 1 tab - Labs Labs: 05/18/17 07:37 05/18/17 07:37 - Constitutional Appears: Well - Head Exam Head Exam: ATRAUMATIC, NORMAL INSPECTION, NORMOCEPHALIC - Eye Exam Eye Exam: EOMI, Normal appearance, PERRL Pupil Exam: NORMAL ACCOMODATION, PERRL - ENT Exam ENT Exam: Mucous Membranes Moist, Normal Exam - Neck Exam Neck Exam: Full ROM, Normal Inspection. absent: Lymphadenopathy - Respiratory Exam Respiratory Exam: Decreased Breath Sounds - Cardiovascular Exam Cardiovascular Exam: REGULAR RHYTHM, +S1, +S2 - GI/Abdominal Exam GI & Abdominal Exam: Soft, Diminished Bowel Sounds - Rectal Exam Rectal Exam: Deferred Assessment and Plan - Assessment and Plan (Free Text) Plan: Sickle cell Crisis Admit to med/surg Pt with LBP, leg pain; denies CP, SOB HGB 6.3 on (05/12/17), 6.5 today 05/18 - s/p 1 unit RBC 05/15 Dr. Leyva Hem/Onc mobile sales consultant, help greatly appreciated - IVF, O2, Transfuse under Hgb 5 Folic acid 2mg PO daily Dilaudid 2mg IV q3hrs prn Benadryl 25mg IV Q3hrs prn Urinary tract infection, ESBL + UA (05/12/17): 3+ LE, Nitrate negative, WBC 636, Moderate bacteria Urine Culture: ESBL Negative ID consult. Dr. Ruth Jones. recs appreciated. - Start SS Bactrim 1 tab PO Q12H (start 05/15/17) - Discontinued DS Bactrim 1 tab PO Q12H (start 05/13/17) Case discussed with Dr. Meño Matias, urologist, who saw pt on last admission. His recommendations: - no need for consult at this time - pt should see her private urologist who placed bilateral ureteral stents for follow up as stents are overdue for change - if pt cannot see private urologist, she can follow up in his office as outpatient Given that this patient has a hx of hydronephrosis Renal US ordered to assess change Previous Admission: -Bladder US (05/01/17)- B/L ureteral stents with moderate hydronephrosis R>L -Ucx (04/28/17)- vancomycin resistant E. faecium Leukocytosis WBC trending down- 18.1 05/18 Etiology: UTI in setting of SSC ID consult. Dr. Ruth Jones. recs appreciated. -SS Bactrim 1 tab PO Q12H Transaminitis- worsening AST/ALT/ALK Phos 126/78/195 Tbili 1.8 Monitor Neurogenic bladder -straight cath PRN; patient is able to do herself Elevated creatinine Cr 1.4 today 05/18 Will continue to monitor GI/DVT ppx -protonix 40mg PO daily SCDs not warranted; pt mobile Lovenox discontinued 05/17 Plan for D/C tomorrow with outpatient follow up
--- NOTE | 2017-05-18 16:07 | CP.PCM.PN ---
Subjective - Date & Time of Evaluation Date of Evaluation: 05/18/17 Time of Evaluation: 16:05 - Subjective Subjective: C/O "PO ABX NOT WORKING " LOWER ABDOMINAL /PELVIC DISCOMFORT STILL WITH LEUKOCYTOSIS Objective - Vital Signs/Intake and Output Vital Signs (last 24 hours): Temp Pulse Resp BP Pulse Ox 98.0 F 85 20 103/68 100 05/18/17 15:02 05/18/17 15:02 05/18/17 15:02 05/18/17 15:02 05/18/17 15:02 - Medications Medications: Current Medications Diphenhydramine HCl (Benadryl) 25 mg IVP Q3 PRN PRN Reason: Anaphylaxis Last Admin: 05/18/17 13:43 Dose: 25 mg Folic Acid (Folic Acid) 2 mg PO DAILY [facility] Last Admin: 05/18/17 10:17 Dose: 2 mg Hydromorphone HCl (Dilaudid) 2 mg IVP Q3 PRN PRN Reason: Pain, severe (8-10) Last Admin: 05/18/17 13:43 Dose: 2 mg Meropenem 500 mg/ Sodium (Chloride) 100 mls @ 100 mls/hr IVPB Q8 [facility] PRN Reason: Protocol Pantoprazole Sodium (Protonix Ec Tab) 40 mg PO DAILY [facility] Last Admin: 05/18/17 10:16 Dose: 40 mg Trimethoprim/Sulfamethoxazole (Bactrim Ss Tab) 1 tab PO BID [facility] PRN Reason: Protocol Last Admin: 05/18/17 10:17 Dose: 1 tab - Labs Labs: 05/18/17 07:37 05/18/17 07:37 - Constitutional Appears: No Acute Distress - Head Exam Head Exam: NORMAL INSPECTION - Eye Exam Eye Exam: EOMI Pupil Exam: PERRL - ENT Exam ENT Exam: Normal Exam - Neck Exam Neck Exam: Normal Inspection - Respiratory Exam Respiratory Exam: Clear to Ausculation Bilateral - Cardiovascular Exam Cardiovascular Exam: REGULAR RHYTHM, +S1, +S2 - GI/Abdominal Exam GI & Abdominal Exam: Soft, Tenderness (SUPRAPUBIC.), Diminished Bowel Sounds - Extremities Exam Extremities Exam: Normal Capillary Refill, Normal Inspection. absent: Calf Tenderness - Neurological Exam Neurological Exam: Alert, Awake, CN II-XII Intact, Oriented x3, Reflexes Normal - Psychiatric Exam Psychiatric exam: Normal Mood - Skin Skin Exam: Pallor Assessment and Plan (1) Sickle cell pain crisis Status: Acute (2) Leukocytosis Status: Acute (3) UTI (urinary tract infection) Status: Acute (4) Anemia Status: Acute (5) Neurogenic bladder Status: Acute - Assessment and Plan (Free Text) Plan: DC PO BACTRIM-DAY5. REPEAT CLEAN CATCH UA/URINE CULTURE. START IV MERREM 500MG IV Q 8HRLY 05/18/17. F/U CBC F/U LFTS ANALGESICS F/U REPEAT CULTURES. CASE DISCUSSED W STAFF.
--- NOTE | 2017-05-18 17:53 | CP.PCM.PN ---
Subjective - Date & Time of Evaluation Date of Evaluation: 05/18/17 Time of Evaluation: 14:00 - Subjective Subjective: Has pain in legs Objective - Vital Signs/Intake and Output Vital Signs (last 24 hours): Temp Pulse Resp BP Pulse Ox 98.0 F 85 20 103/68 100 05/18/17 15:02 05/18/17 15:02 05/18/17 15:02 05/18/17 15:02 05/18/17 15:02 - Medications Medications: Current Medications Diphenhydramine HCl (Benadryl) 25 mg IVP Q3 PRN PRN Reason: Anaphylaxis Last Admin: 05/18/17 13:43 Dose: 25 mg Folic Acid (Folic Acid) 2 mg PO DAILY [facility] Last Admin: 05/18/17 10:17 Dose: 2 mg Hydromorphone HCl (Dilaudid) 2 mg IVP Q3 PRN PRN Reason: Pain, severe (8-10) Last Admin: 05/18/17 13:43 Dose: 2 mg Meropenem 500 mg/ Sodium (Chloride) 100 mls @ 100 mls/hr IVPB Q8 [facility] PRN Reason: Protocol Pantoprazole Sodium (Protonix Ec Tab) 40 mg PO DAILY [facility] Last Admin: 05/18/17 10:16 Dose: 40 mg - Labs Labs: 05/18/17 07:37 05/18/17 07:37 - Head Exam Head Exam: ATRAUMATIC - Eye Exam Eye Exam: Normal appearance - ENT Exam ENT Exam: Mucous Membranes Dry - Respiratory Exam Respiratory Exam: NORMAL BREATHING PATTERN - Cardiovascular Exam Cardiovascular Exam: +S1, +S2 - GI/Abdominal Exam GI & Abdominal Exam: Normal Bowel Sounds Assessment and Plan (1) Sickle cell pain crisis Assessment & Plan: IV fluids, pain meds, 02 via NC, folic acid s/p PRBC transfusion Status: Acute (2) Leukocytosis Assessment & Plan: on antibiotics reactive component from sickle cell Status: Acute (3) Sickle cell anemia Assessment & Plan: folic acid Status: Acute
[2017-05-18] MEDS: Meropenem 500 MG in Sodium Chloride 0.9% 100 ML IVPB SCH (21:16)
[2017-05-18 22:51] LABS: SQUAMOUS EPITHIAL 1 /hpf (0-5); URINE BACTERIA MANY (<OCC); URINE BILIRUBIN NEGATIVE (NEGATIVE); URINE BLOOD 2+ (NEGATIVE); URINE CLARITY Hazy (Clear); URINE COLOR Yellow (YELLOW); URINE GLUCOSE (UA) NORMAL (Normal); URINE LEUKOCYTE ESTERASE 3+ Leu/uL (Negative); URINE PROTEIN 1+ mg/dL (NEGATIVE); WBC CLUMPS MANY /hpf
[2017-05-19] MEDS: DiphenhydrAMINE 50 mg/ml Inj IVP PRN ×7 (03:21→22:07)
[2017-05-19] MEDS: Meropenem 500 MG in Sodium Chloride 0.9% 100 ML IVPB SCH ×3 (06:13→21:40)
[2017-05-19 07:57] LABS: BASO # 0.2 K/uL (0.0-0.2); BASO % 1.1 % (0.0-2.0); EOS # 1.3 K/uL (0.0-0.7); EOS % 7.1 % (0.0-4.0); LYMPH # 4.9 K/uL (1.0-4.3); LYMPH % 26.4 % (20.0-40.0); MEAN CELL VOLUME 87.4 fL (81.0-99.0); MEAN CORPUSCULAR HEMOGLOBIN 30.2 pg (27.0-31.0); MEAN CORPUSCULAR HGB CONC 34.5 g/dL (33.0-37.0); MEAN PLATELET VOLUME 9.1 fL (7.2-11.7); MONO # 1.7 K/uL (0.0-0.8); NEUT # 10.5 K/uL (1.8-7.0); NEUT % 56.4 % (50.0-75.0); NRBC % 0.1 % (0.0-2.0); RBC 2.15 Mil/uL (3.80-5.20); RED CELL DISTRIBUTION WIDTH 18.3 % (11.5-14.5); WHITE BLOOD COUNT 18.6 K/uL (4.8-10.8)
[2017-05-19 08:02] LABS: HEMOGLOBIN 6.5 g/dL (11.0-16.0)
[2017-05-19 09:08] LABS: ALB/GLOB RATIO 0.7 (1.0-2.1); ALBUMIN 3.5 g/dL (3.5-5.0); BILIRUBIN,DIRECT 0.8 mg/dL (0.0-0.4); CALCIUM 7.9 mg/dl (8.6-10.4)
[2017-05-19] MEDS: Pantoprazole 40 mg EC Tab PO SCH (09:26)
--- NOTE | 2017-05-19 11:29 | CP.PCM.PN ---
<Malcolm Leach S - Last Filed: 05/19/17 13:49> Subjective - Date & Time of Evaluation Date of Evaluation: 05/19/17 Time of Evaluation: 11:06 - Subjective Subjective: Progress note for Dr. Hernandez's Service Pt seen and examined at bedside. Continues to have pains mostly in her legs. Medications do provided relief. No acute complaints. Objective - Vital Signs/Intake and Output Vital Signs (last 24 hours): Temp Pulse Resp BP Pulse Ox 98.1 F 96 H 20 100/67 99 05/19/17 08:36 05/19/17 08:36 05/19/17 08:36 05/19/17 08:36 05/19/17 08:36 Intake and Output: 05/19/17 05/19/17 06:59 18:59 Intake Total 600 Balance 600 - Medications Medications: Current Medications Diphenhydramine HCl (Benadryl) 25 mg IVP Q3 PRN PRN Reason: Anaphylaxis Last Admin: 05/19/17 09:26 Dose: 25 mg Folic Acid (Folic Acid) 2 mg PO DAILY [facility] Last Admin: 05/19/17 09:26 Dose: 2 mg Hydromorphone HCl (Dilaudid) 2 mg IVP Q3 PRN PRN Reason: Pain, severe (8-10) Last Admin: 05/19/17 09:27 Dose: 2 mg Meropenem 500 mg/ Sodium (Chloride) 100 mls @ 100 mls/hr IVPB Q8 [facility] PRN Reason: Protocol Last Admin: 05/19/17 06:13 Dose: 100 mls/hr Pantoprazole Sodium (Protonix Ec Tab) 40 mg PO DAILY [facility] Last Admin: 05/19/17 09:26 Dose: 40 mg - Labs Labs: 05/19/17 07:20 05/19/17 07:20 - Constitutional Appears: No Acute Distress - Head Exam Head Exam: ATRAUMATIC - Eye Exam Eye Exam: Normal appearance - ENT Exam ENT Exam: Mucous Membranes Moist - Respiratory Exam Respiratory Exam: Clear to Ausculation Bilateral, NORMAL BREATHING PATTERN. absent: Rhonchi, Wheezes - Cardiovascular Exam Cardiovascular Exam: REGULAR RHYTHM, +S1, +S2 - GI/Abdominal Exam GI & Abdominal Exam: Distended (mild), Soft. absent: Tenderness - Back Exam Back Exam: absent: CVA tenderness (L), CVA tenderness (R) - Neurological Exam Neurological Exam: Alert, Awake, Oriented x3 - Psychiatric Exam Psychiatric exam: Normal Affect, Normal Mood - Skin Skin Exam: Dry, Warm Assessment and Plan - Assessment and Plan (Free Text) Plan: Sickle cell Crisis Admit to med/surg Pt with LBP, leg pain; denies CP, SOB HGB 6.3 on (05/12/17), 6.5 today 05/19 - s/p 1 unit RBC 05/15 Dr. Leyva Hem/Onc entry level sales consultant, help greatly appreciated -IVF, pain meds, 02 via NC, folic acid, Transfuse under Hgb 5 Folic acid 2mg PO daily Dilaudid 2mg IV q3hrs prn Benadryl 25mg IV Q3hrs prn Urinary tract infection, ESBL + UA (05/12/17): 3+ LE, Nitrate negative, WBC 636, Moderate bacteria Urine Culture: ESBL Negative ID consult. Dr. Ruth Jones. recs appreciated. -DC PO BACTRIM-DAY5 - Discontinued SS Bactrim 1 tab PO Q12H on 05/18 (started 05/15/17) - Discontinued DS Bactrim 1 tab PO Q12H on 05/15 (started 05/13/17) -START IV MERREM 500MG IV Q 8HRLY 05/18/17 -REPEAT CLEAN CATCH UA/URINE CULTURE. Uro consult Dr. Trey Matias. Recs appreciated. - CT abdomen pelvis ordered- follow up results - may need ureteral stents changed- follow up rec Renal US 05/18 severe right and mod left hydronephrosis Previous Admission: -Bladder US (05/01/17)- B/L ureteral stents with moderate hydronephrosis R>L -Ucx (04/28/17)- vancomycin resistant E. faecium Leukocytosis WBC 18.6 05/19 Etiology: UTI in setting of SSC ID consult. Dr. Ruth Jones. recs appreciated. -START IV MERREM 500MG IV Q 8HRLY 05/18/[address] Trey Matias. Recs appreciated. - CT abdomen pelvis ordered- follow up results - may need ureteral stents changed- follow up rec Transaminitis- worsening AST/ALT/ALK Phos 126/78/195 (05/18/17) AST/ALT/ALK Phos 137/91/184 (05/19/17) Tbili 1.8 -> 1.[address] abdomen/pelvis Monitor Neurogenic bladder -straight cath PRN; patient is able to do herself Elevated creatinine Cr 1.4 today 05/19 Will continue to monitor GI/DVT ppx -protonix 40mg PO daily SCDs not warranted; pt mobile Lovenox discontinued 05/[address] Hernandez All management as per Dr. Hernandez <Rosalina Hernandez - Last Filed: 05/20/17 18:40> Objective - Vital Signs/Intake and Output Vital Signs (last 24 hours): Temp Pulse Resp BP Pulse Ox 98.2 F 101 H 20 103/67 99 05/20/17 15:00 05/20/17 15:00 05/20/17 15:00 05/20/17 15:00 05/20/17 15:00 Intake and Output: 05/20/17 05/20/17 06:59 18:59 Intake Total 450 1000 Balance 450 1000 - Medications Medications: Current Medications Diphenhydramine HCl (Benadryl) 25 mg IVP Q3 PRN PRN Reason: Anaphylaxis Last Admin: 05/20/17 16:27 Dose: 25 mg Folic Acid (Folic Acid) 2 mg PO DAILY [facility] Last Admin: 05/20/17 10:10 Dose: 2 mg Hydromorphone HCl (Dilaudid) 2 mg IVP Q3 PRN PRN Reason: Pain, severe (8-10) Last Admin: 05/20/17 16:28 Dose: 2 mg Meropenem 500 mg/ Sodium (Chloride) 100 mls @ 100 mls/hr IVPB Q8 [facility] PRN Reason: Protocol Last Admin: 05/20/17 13:12 Dose: 100 mls/hr Pantoprazole Sodium (Protonix Ec Tab) 40 mg PO DAILY [facility] Last Admin: 05/20/17 10:10 Dose: 40 mg - Labs Labs: 05/20/17 07:33 05/20/17 07:33 Assessment and Plan (1) Anemia Status: Acute (2) Leukocytosis Status: Acute (3) Sickle cell pain crisis Status: Acute (4) UTI (urinary tract infection) Status: Acute (5) Animal bite wound Status: Acute (6) Chronic pain disorder Status: Acute (7) Leg pain Status: Acute (8) Leukocytosis Status: Acute (9) Myalgia Status: Acute (10) Neurogenic bladder Status: Acute (11) Pain Status: Acute (12) Severe anemia Status: Acute (13) Sickle cell anemia Status: Acute (14) Sickle cell anemia with pain Status: Acute Attending/Attestation - Attestation I have personally seen and examined this patient.: Yes I have fully participated in the care of the patient.: Yes I have reviewed all pertinent clinical information, including history, physical exam and plan: Yes Notes (Text): 05/20/17 18:39 case seen and d.w staff and resident
--- NOTE | 2017-05-19 11:31 | CT ---
PROCEDURE: CT Abdomen and Pelvis without intravenous contrast HISTORY: stones COMPARISON: None. TECHNIQUE: Contiguous images were obtained from the domes of the diaphragms to the upper thighs without the administration of intravenous contrast. Oral contrast was not administered. Radiation dose: Total exam DLP = 284.5 mGy-cm. This CT exam was performed using one or more of the following dose reduction techniques: Automated exposure control, adjustment of the mA and/or kV according to patient size, and/or use of iterative reconstruction technique. FINDINGS: LOWER THORAX: Unremarkable. LIVER: Hepatomegaly. Diffusely dense liver. No gross lesion or ductal dilatation. GALLBLADDER AND BILE DUCTS: Unremarkable. PANCREAS: Unremarkable. No gross lesion or ductal dilatation. SPLEEN: Splenomegaly with multiple low-density areas and high density areas. ADRENALS: Unremarkable. No mass. KIDNEYS AND URETERS: Stable right renal cortical thinning. Malpositioned right ureteral stent with proximal pigtail in the right upper pole and distal pigtail in the distal right ureter. Left ureteral stent is satisfactory position. Bilateral pelvocaliectasis. VASCULATURE: Unremarkable. No aortic aneurysm. BOWEL: Prominent amount of retained colonic stool. No obstruction. No gross mural thickening. APPENDIX: Normal. PERITONEUM: Unremarkable. No free fluid. No free air. LYMPH NODES: Hyperdense lymph nodes. BLADDER: Distended. REPRODUCTIVE: Unremarkable. BONES: Partially imaged Moreira rods. Erosive change involving endplates flanking L3-4 as well as superior endplate of L5. Patchy sclerosis of the bilateral femoral heads. OTHER FINDINGS: None. IMPRESSION: Hepatosplenomegaly with high-density liver, spleen and lymph nodes compatible with iron deposition disease. Malpositioned right ureteral stent with proximal pigtail in the right upper pole and distal pigtail in the distal right ureter. Urologic repositioning is recommended. No urolithiasis or evidence of recently passed genitourinary calculus. Erosive change involving the endplates flanking L3-4 as well as superior endplate of L5. If there is clinical concern for osteomyelitis, MRI of the lumbar spine can be obtained for further evaluation. Additional findings as above.
--- NOTE | 2017-05-19 18:54 | CP.PCM.PN ---
Subjective - Date & Time of Evaluation Date of Evaluation: 05/19/17 Time of Evaluation: 07:20 - Subjective Subjective: clinically same Objective - Vital Signs/Intake and Output Vital Signs (last 24 hours): Temp Pulse Resp BP Pulse Ox 97.4 F L 97 H 20 100/65 97 05/19/17 15:40 05/19/17 15:40 05/19/17 15:40 05/19/17 15:40 05/19/17 15:40 Intake and Output: 05/19/17 05/19/17 06:59 18:59 Intake Total 1180 Balance 1180 - Medications Medications: Current Medications Diphenhydramine HCl (Benadryl) 25 mg IVP Q3 PRN PRN Reason: Anaphylaxis Last Admin: 05/19/17 16:02 Dose: 25 mg Folic Acid (Folic Acid) 2 mg PO DAILY [facility] Last Admin: 05/19/17 09:26 Dose: 2 mg Hydromorphone HCl (Dilaudid) 2 mg IVP Q3 PRN PRN Reason: Pain, severe (8-10) Last Admin: 05/19/17 16:03 Dose: 2 mg Meropenem 500 mg/ Sodium (Chloride) 100 mls @ 100 mls/hr IVPB Q8 AP PRN Reason: Protocol Last Admin: 05/19/17 14:25 Dose: 100 mls/hr Pantoprazole Sodium (Protonix Ec Tab) 40 mg PO DAILY [facility] Last Admin: 05/19/17 09:26 Dose: 40 mg - Labs Labs: 05/19/17 07:20 05/19/17 07:20 - Constitutional Appears: Well - Head Exam Head Exam: ATRAUMATIC, NORMAL INSPECTION, NORMOCEPHALIC - Eye Exam Eye Exam: EOMI, Normal appearance, PERRL Pupil Exam: NORMAL ACCOMODATION, PERRL - ENT Exam ENT Exam: Mucous Membranes Moist, Normal Exam - Neck Exam Neck Exam: Full ROM, Normal Inspection. absent: Lymphadenopathy - Respiratory Exam Respiratory Exam: Decreased Breath Sounds - Cardiovascular Exam Cardiovascular Exam: REGULAR RHYTHM, +S1, +S2 - GI/Abdominal Exam GI & Abdominal Exam: Soft, Diminished Bowel Sounds - Rectal Exam Rectal Exam: Deferred Assessment and Plan (1) Anemia Status: Acute (2) Leukocytosis Status: Acute (3) Sickle cell pain crisis Status: Acute (4) UTI (urinary tract infection) Status: Acute (5) Animal bite wound Status: Acute (6) Chronic pain disorder Status: Acute (7) Leg pain Status: Acute (8) Leukocytosis Status: Acute (9) Myalgia Status: Acute (10) Neurogenic bladder Status: Acute (11) Pain Status: Acute (12) Severe anemia Status: Acute (13) Sickle cell anemia Status: Acute (14) Sickle cell anemia with pain Status: Acute - Assessment and Plan (Free Text) Plan: Sickle cell Crisis Admit to med/surg Pt with LBP, leg pain; denies CP, SOB HGB 6.3 on (05/12/17), 6.5 today 05/19 - s/p 1 unit RBC 05/15 Dr. Leyva Hem/Onc specialty development consultant, help greatly appreciated -IVF, pain meds, 02 via NC, folic acid, Transfuse under Hgb 5 Folic acid 2mg PO daily Dilaudid 2mg IV q3hrs prn Benadryl 25mg IV Q3hrs prn Urinary tract infection, ESBL + UA (05/12/17): 3+ LE, Nitrate negative, WBC 636, Moderate bacteria Urine Culture: ESBL Negative ID consult. Dr. Ruth Jones. recs appreciated. -DC PO BACTRIM-DAY5 - Discontinued SS Bactrim 1 tab PO Q12H on 05/18 (started 05/15/17) - Discontinued DS Bactrim 1 tab PO Q12H on 05/15 (started 05/13/17) -START IV MERREM 500MG IV Q 8HRLY 05/18/17 -REPEAT CLEAN CATCH UA/URINE CULTURE. Uro consult Dr. Trey Matias. Recs appreciated. - CT abdomen pelvis ordered- follow up results - may need ureteral stents changed- follow up rec Renal US 05/18 severe right and mod left hydronephrosis Previous Admission: -Bladder US (05/01/17)- B/L ureteral stents with moderate hydronephrosis R>L -Ucx (04/28/17)- vancomycin resistant E. faecium Leukocytosis WBC 18.6 05/19 Etiology: UTI in setting of SSC ID consult. Dr. Ruth Jones. recs appreciated. -START IV MERREM 500MG IV Q 8HRLY 05/18/[address] Trey Matias. Recs appreciated. - CT abdomen pelvis ordered- follow up results - may need ureteral stents changed- follow up rec Transaminitis- worsening AST/ALT/ALK Phos 126/78/195 (05/18/17) AST/ALT/ALK Phos 137/91/184 (05/19/17) Tbili 1.8 -> 1.[address] abdomen/pelvis Monitor Neurogenic bladder -straight cath PRN; patient is able to do herself Elevated creatinine Cr 1.4 today 05/19 Will continue to monitor GI/DVT ppx -protonix 40mg PO daily SCDs not warranted; pt mobile Lovenox discontinued 05/17
--- NOTE | 2017-05-19 19:57 | CP.PCM.PN ---
Subjective - Date & Time of Evaluation Date of Evaluation: 05/19/17 Time of Evaluation: 19:57 - Subjective Subjective: C/O B/L LEG PAINS LOWER ABDOMINAL /PELVIC DISCOMFORT STILL WITH LEUKOCYTOSIS. STARTED ON IV MERREM 05/18/17. CASE DISCUSSED WITH DR THOMAS. POPE FOR EVALUATION OF B/L STENTS. FOR NOW CPM. F/U REPEAT URINE-CULTURES Objective - Vital Signs/Intake and Output Vital Signs (last 24 hours): Temp Pulse Resp BP Pulse Ox 97.4 F L 97 H 20 100/65 97 05/19/17 15:40 05/19/17 15:40 05/19/17 15:40 05/19/17 15:40 05/19/17 15:40 Intake and Output: 05/19/17 05/20/17 18:59 06:59 Intake Total 1180 Balance 1180 - Medications Medications: Current Medications Diphenhydramine HCl (Benadryl) 25 mg IVP Q3 PRN PRN Reason: Anaphylaxis Last Admin: 05/19/17 19:05 Dose: 25 mg Folic Acid (Folic Acid) 2 mg PO DAILY [facility] Last Admin: 05/19/17 09:26 Dose: 2 mg Hydromorphone HCl (Dilaudid) 2 mg IVP Q3 PRN PRN Reason: Pain, severe (8-10) Last Admin: 05/19/17 19:06 Dose: 2 mg Meropenem 500 mg/ Sodium (Chloride) 100 mls @ 100 mls/hr IVPB Q8 AP PRN Reason: Protocol Last Admin: 05/19/17 14:25 Dose: 100 mls/hr Pantoprazole Sodium (Protonix Ec Tab) 40 mg PO DAILY [facility] Last Admin: 05/19/17 09:26 Dose: 40 mg - Labs Labs: 05/19/17 07:20 05/19/17 07:20 - Constitutional Appears: No Acute Distress, Chronically Ill - Head Exam Head Exam: NORMAL INSPECTION - Eye Exam Eye Exam: EOMI, PERRL - ENT Exam ENT Exam: Normal Oropharynx - Neck Exam Neck Exam: Normal Inspection - Respiratory Exam Respiratory Exam: Clear to Ausculation Bilateral - Cardiovascular Exam Cardiovascular Exam: REGULAR RHYTHM, +S1, +S2 - GI/Abdominal Exam GI & Abdominal Exam: Soft, Tenderness (PELVIC AREA), Hypoactive Bowel Sounds - Neurological Exam Neurological Exam: Alert, Awake, CN II-XII Intact, Oriented x3, Reflexes Normal - Psychiatric Exam Psychiatric exam: Normal Mood - Skin Skin Exam: Pallor, Warm Assessment and Plan (1) Sickle cell pain crisis Status: Acute (2) Leukocytosis Status: Acute (3) UTI (urinary tract infection) Status: Acute (4) Anemia Status: Acute (5) Neurogenic bladder Status: Acute - Assessment and Plan (Free Text) Plan: REPEAT CLEAN CATCH UA/URINE CULTURE.-P ON IV MERREM 500MG IV Q 8HRLY 05/18/17. F/U CBC F/U LFTS ANALGESICS F/U REPEAT CULTURES. TO EVALUATE B/L STENTS. CASE DISCUSSED W STAFF AND DR WAN.
[2017-05-20] MEDS: DiphenhydrAMINE 50 mg/ml Inj IVP PRN ×8 (01:11→22:35)
[2017-05-20] MEDS: Meropenem 500 MG in Sodium Chloride 0.9% 100 ML IVPB SCH ×3 (05:26→21:25)
[2017-05-20 07:53] LABS: BASO # 0.2 K/uL (0.0-0.2); EOS # 1.2 K/uL (0.0-0.7); EOS % 6.7 % (0.0-4.0); LYMPH # 4.1 K/uL (1.0-4.3); LYMPH % 23.3 % (20.0-40.0); MEAN CORPUSCULAR HEMOGLOBIN 29.7 pg (27.0-31.0); MEAN CORPUSCULAR HGB CONC 34.6 g/dL (33.0-37.0); MEAN PLATELET VOLUME 8.5 fL (7.2-11.7); MONO # 1.5 K/uL (0.0-0.8); MONO % 8.3 % (0.0-10.0); NEUT # 10.6 K/uL (1.8-7.0); NEUT % 60.7 % (50.0-75.0); NRBC % 0.1 % (0.0-2.0); RBC 1.96 Mil/uL (3.80-5.20); RED CELL DISTRIBUTION WIDTH 18.2 % (11.5-14.5); WHITE BLOOD COUNT 17.5 K/uL (4.8-10.8)
[2017-05-20 07:57] LABS: HEMOGLOBIN 5.8 g/dL (11.0-16.0)
[2017-05-20 08:04] LABS: ALB/GLOB RATIO 0.7 (1.0-2.1); ALT/SGPT 74 U/L (9-52); AST/SGOT 107 U/L (14-36); BLOOD UREA NITROGEN 23 mg/dL (7-17); CALCIUM 7.6 mg/dl (8.6-10.4); GFR AFRICAN-AMERICAN > 60; GFR NON-AFRICAN AMERICAN 50
[2017-05-20] MEDS: Pantoprazole 40 mg EC Tab PO SCH (10:10)
--- NOTE | 2017-05-20 10:26 | CP.PCM.PN ---
<Tonia Montejo - Last Filed: 05/20/17 15:09> Subjective - Date & Time of Evaluation Date of Evaluation: 05/20/17 Time of Evaluation: 09:00 - Subjective Subjective: PGY-[address] Hernandez Patient seen and examined at bedside. No acute events overnight. Patient still complains of abdominal pain but controlled with pain medication. Patient revealed to me that she never follow up with her urologist for her stent removal since last hospitalization. Patient denies fever, chills, shortness of breath, chest pain, nausea, or vomiting. Objective - Vital Signs/Intake and Output Vital Signs (last 24 hours): Temp Pulse Resp BP Pulse Ox 98.3 F 90 20 104/67 100 05/20/17 07:40 05/20/17 07:40 05/20/17 07:40 05/20/17 07:40 05/20/17 07:40 Intake and Output: 05/20/17 05/20/17 06:59 18:59 Intake Total 450 650 Balance 450 650 - Medications Medications: Current Medications Diphenhydramine HCl (Benadryl) 25 mg IVP Q3 PRN PRN Reason: Anaphylaxis Last Admin: 05/20/17 07:20 Dose: 25 mg Folic Acid (Folic Acid) 2 mg PO DAILY [facility] Last Admin: 05/19/17 09:26 Dose: 2 mg Hydromorphone HCl (Dilaudid) 2 mg IVP Q3 PRN PRN Reason: Pain, severe (8-10) Last Admin: 05/20/17 07:18 Dose: 2 mg Meropenem 500 mg/ Sodium (Chloride) 100 mls @ 100 mls/hr IVPB Q8 AP PRN Reason: Protocol Last Admin: 05/20/17 05:26 Dose: 100 mls/hr Pantoprazole Sodium (Protonix Ec Tab) 40 mg PO DAILY [facility] Last Admin: 05/19/17 09:26 Dose: 40 mg - Labs Labs: 05/20/17 07:33 05/20/17 07:33 - Additional Findings Additional findings: - Constitutional Appears: No Acute Distress - Head Exam Head Exam: ATRAUMATIC - Eye Exam Eye Exam: Normal appearance - ENT Exam ENT Exam: Mucous Membranes Moist - Respiratory Exam Respiratory Exam: Clear to Ausculation Bilateral, NORMAL BREATHING PATTERN. absent: Rhonchi, Wheezes - Cardiovascular Exam Cardiovascular Exam: REGULAR RHYTHM, +S1, +S2 - GI/Abdominal Exam GI & Abdominal Exam: Distended (mild), Soft. absent: Tenderness - Back Exam Back Exam: absent: CVA tenderness (L), CVA tenderness (R) - Neurological Exam Neurological Exam: Alert, Awake, Oriented x3 - Psychiatric Exam Psychiatric exam: Normal Affect, Normal Mood - Skin Skin Exam: Dry, Warm Assessment and Plan - Assessment and Plan (Free Text) Assessment: Sickle cell Crisis Admit to med/surg Pt with LBP, leg pain; denies CP, SOB HGB 6.3 on (05/12/17), 6.5 on (05/19), 5.8 today - s/p 1 unit RBC 05/15 Dr. Leyva Hem/Onc product development consultant, help greatly appreciated -IVF, pain meds, 02 via NC, folic acid, Transfuse under Hgb 5 Folic acid 2mg PO daily Dilaudid 2mg IV q3hrs prn Benadryl 25mg IV Q3hrs prn Urinary tract infection, ESBL + UA (05/12/17): 3+ LE, Nitrate negative, WBC 636, Moderate bacteria Urine Culture: ESBL Negative ID consult. Dr. Ruth Jones. recs appreciated. -DC PO BACTRIM-DAY5 - Discontinued SS Bactrim 1 tab PO Q12H on 05/18 (started 05/15/17) - Discontinued DS Bactrim 1 tab PO Q12H on 05/15 (started 05/13/17) -START IV MERREM 500MG IV Q 8HRLY 05/18/17 -REPEAT URINE CULTURE Gram negative rai, Gram positive cocci Uro consult Dr. Trey Matias. Recs appreciated. - CT abdomen pelvis ordered- Malpositioned right ureteral stent with proximal pigtail in the right upper pole and distal pigtail in the distal right ureter. Urologic repositioning is recommended. - Cystoscopy planned for 05/21 at 3pm - clear liquid for breakfast, NPO afterwards Renal US 05/18 severe right and mod left hydronephrosis Previous Admission: -Bladder US (05/01/17)- B/L ureteral stents with moderate hydronephrosis R>L -Ucx (04/28/17)- vancomycin resistant E. faecium Leukocytosis WBC 17.5 05/20 Etiology: UTI in setting of SSC ID consult. Dr. Ruth Jones. recs appreciated. -continue IV MERREM 500MG IV Q 8HRLY 05/18/[address] Trey Matias. Recs appreciated Transaminitis AST/ALT/ALK Phos 126/78/195 (05/18/17) AST/ALT/ALK Phos 137/91/184 (05/19/17) AST/ALT/ALK Phos 107/74/182 (05/20/17) Tbili 1.7 Monitor Neurogenic bladder -straight cath PRN; patient is able to do herself Elevated creatinine Cr 1.2 today 05/20 Will continue to monitor GI/DVT ppx -protonix 40mg PO daily SCDs not warranted; pt mobile Lovenox discontinued 05/[address] Hernandez All management as per Dr. Hernandez <Rosalina Hernandez - Last Filed: 05/20/17 18:38> Objective - Vital Signs/Intake and Output Vital Signs (last 24 hours): Temp Pulse Resp BP Pulse Ox 98.2 F 101 H 20 103/67 99 05/20/17 15:00 05/20/17 15:00 05/20/17 15:00 05/20/17 15:00 05/20/17 15:00 Intake and Output: 05/20/17 05/20/17 06:59 18:59 Intake Total 450 1000 Balance 450 1000 - Medications Medications: Current Medications Diphenhydramine HCl (Benadryl) 25 mg IVP Q3 PRN PRN Reason: Anaphylaxis Last Admin: 05/20/17 16:27 Dose: 25 mg Folic Acid (Folic Acid) 2 mg PO DAILY [facility] Last Admin: 05/20/17 10:10 Dose: 2 mg Hydromorphone HCl (Dilaudid) 2 mg IVP Q3 PRN PRN Reason: Pain, severe (8-10) Last Admin: 05/20/17 16:28 Dose: 2 mg Meropenem 500 mg/ Sodium (Chloride) 100 mls @ 100 mls/hr IVPB Q8 AP PRN Reason: Protocol Last Admin: 05/20/17 13:12 Dose: 100 mls/hr Pantoprazole Sodium (Protonix Ec Tab) 40 mg PO DAILY [facility] Last Admin: 05/20/17 10:10 Dose: 40 mg - Labs Labs: 05/20/17 07:33 05/20/17 07:33 Assessment and Plan (1) Anemia Status: Acute (2) Leukocytosis Status: Acute (3) Sickle cell pain crisis Status: Acute (4) UTI (urinary tract infection) Status: Acute (5) Animal bite wound Status: Acute (6) Chronic pain disorder Status: Acute (7) Leg pain Status: Acute (8) Leukocytosis Status: Acute (9) Myalgia Status: Acute (10) Neurogenic bladder Status: Acute (11) Pain Status: Acute (12) Severe anemia Status: Acute (13) Sickle cell anemia Status: Acute (14) Sickle cell anemia with pain Status: Acute - Assessment and Plan (Free Text) Plan: Sickle cell Crisis Admit to med/surg Pt with LBP, leg pain; denies CP, SOB HGB 6.3 on (05/12/17), 6.5 on (05/19), 5.8 today - s/p 1 unit RBC 05/15 Dr. Leyva Hem/Onc product development consultant, help greatly appreciated -IVF, pain meds, 02 via NC, folic acid, Transfuse under Hgb 5 Folic acid 2mg PO daily Dilaudid 2mg IV q3hrs prn Benadryl 25mg IV Q3hrs prn Urinary tract infection, ESBL + UA (05/12/17): 3+ LE, Nitrate negative, WBC 636, Moderate bacteria Urine Culture: ESBL Negative ID consult. Dr. Ruth Jones. recs appreciated. -DC PO BACTRIM-DAY5 - Discontinued SS Bactrim 1 tab PO Q12H on 05/18 (started 05/15/17) - Discontinued DS Bactrim 1 tab PO Q12H on 05/15 (started 05/13/17) -START IV MERREM 500MG IV Q 8HRLY 05/18/17 -REPEAT URINE CULTURE Gram negative rai, Gram positive cocci Uro consult Dr. Trey Matias. Recs appreciated. - CT abdomen pelvis ordered- Malpositioned right ureteral stent with proximal pigtail in the right upper pole and distal pigtail in the distal right ureter. Urologic repositioning is recommended. - Cystoscopy planned for 05/21 at 3pm - clear liquid for breakfast, NPO afterwards Renal US 05/18 severe right and mod left hydronephrosis Previous Admission: -Bladder US (05/01/17)- B/L ureteral stents with moderate hydronephrosis R>L -Ucx (04/28/17)- vancomycin resistant E. faecium Leukocytosis WBC 17.5 05/20 Etiology: UTI in setting of SSC ID consult. Dr. Ruth Jones. recs appreciated. -continue IV MERREM 500MG IV Q 8HRLY 05/18/[address] Trey Matisa. Recs appreciated Transaminitis AST/ALT/ALK Phos 126/78/195 (05/18/17) AST/ALT/ALK Phos 137/91/184 (05/19/17) AST/ALT/ALK Phos 107/74/182 (05/20/17) Tbili 1.7 Monitor Neurogenic bladder -straight cath PRN; patient is able to do herself Elevated creatinine Cr 1.2 today 05/20 Will continue to monitor GI/DVT ppx -protonix 40mg PO daily SCDs not warranted; pt mobile Lovenox discontinued 05/17 Attending/Attestation - Attestation I have personally seen and examined this patient.: Yes I have fully participated in the care of the patient.: Yes I have reviewed all pertinent clinical information, including history, physical exam and plan: Yes Notes (Text): 05/20/17 18:38 case seen and d.w staff and [facility]
--- NOTE | 2017-05-20 10:33 | CP.PCM.PN ---
Subjective - Date & Time of Evaluation Date of Evaluation: 05/20/17 Time of Evaluation: 07:20 - Subjective Subjective: Patient seen and examined at bedside. No acute events overnight. Patient still complains of abdominal pain but controlled with pain medication. Patient revealed to me that she never follow up with her urologist for her stent removal since last hospitalization. Patient denies fever, chills, shortness of breath, chest pain, nausea, or vomiting. Objective - Vital Signs/Intake and Output Vital Signs (last 24 hours): Temp Pulse Resp BP Pulse Ox 98.3 F 90 20 104/67 100 05/20/17 07:40 05/20/17 07:40 05/20/17 07:40 05/20/17 07:40 05/20/17 07:40 Intake and Output: 05/20/17 05/20/17 06:59 18:59 Intake Total 450 650 Balance 450 650 - Medications Medications: Current Medications Diphenhydramine HCl (Benadryl) 25 mg IVP Q3 PRN PRN Reason: Anaphylaxis Last Admin: 05/20/17 10:10 Dose: 25 mg Folic Acid (Folic Acid) 2 mg PO DAILY [facility] Last Admin: 05/20/17 10:10 Dose: 2 mg Hydromorphone HCl (Dilaudid) 2 mg IVP Q3 PRN PRN Reason: Pain, severe (8-10) Last Admin: 05/20/17 07:18 Dose: 2 mg Meropenem 500 mg/ Sodium (Chloride) 100 mls @ 100 mls/hr IVPB Q8 AP PRN Reason: Protocol Last Admin: 05/20/17 05:26 Dose: 100 mls/hr Pantoprazole Sodium (Protonix Ec Tab) 40 mg PO DAILY [facility] Last Admin: 05/20/17 10:10 Dose: 40 mg - Labs Labs: 05/20/17 07:33 05/20/17 07:33 - Constitutional Appears: Well - Head Exam Head Exam: ATRAUMATIC, NORMAL INSPECTION, NORMOCEPHALIC - Eye Exam Eye Exam: EOMI, Normal appearance, PERRL Pupil Exam: NORMAL ACCOMODATION, PERRL - ENT Exam ENT Exam: Mucous Membranes Moist, Normal Exam - Neck Exam Neck Exam: Full ROM, Normal Inspection. absent: Lymphadenopathy - Respiratory Exam Respiratory Exam: Decreased Breath Sounds - Cardiovascular Exam Cardiovascular Exam: REGULAR RHYTHM, +S1, +S2 - GI/Abdominal Exam GI & Abdominal Exam: Soft, Diminished Bowel Sounds - Rectal Exam Rectal Exam: Deferred Assessment and Plan (1) Anemia Status: Acute (2) Leukocytosis Status: Acute (3) Sickle cell pain crisis Status: Acute (4) UTI (urinary tract infection) Status: Acute (5) Animal bite wound Status: Acute (6) Chronic pain disorder Status: Acute (7) Leg pain Status: Acute (8) Leukocytosis Status: Acute (9) Myalgia Status: Acute (10) Neurogenic bladder Status: Acute (11) Pain Status: Acute (12) Severe anemia Status: Acute (13) Sickle cell anemia Status: Acute (14) Sickle cell anemia with pain Status: Acute - Assessment and Plan (Free Text) Plan: Sickle cell Crisis Admit to med/surg Pt with LBP, leg pain; denies CP, SOB HGB 6.3 on (05/12/17), 6.5 on (05/19), 5.8 today - s/p 1 unit RBC 05/15 Dr. Leyva Hem/Onc relationship consultant, help greatly appreciated -IVF, pain meds, 02 via NC, folic acid, Transfuse under Hgb 5 Folic acid 2mg PO daily Dilaudid 2mg IV q3hrs prn Benadryl 25mg IV Q3hrs prn Urinary tract infection, ESBL + UA (05/12/17): 3+ LE, Nitrate negative, WBC 636, Moderate bacteria Urine Culture: ESBL Negative ID consult. Dr. Ruth Jones. recs appreciated. -DC PO BACTRIM-DAY5 - Discontinued SS Bactrim 1 tab PO Q12H on 05/18 (started 05/15/17) - Discontinued DS Bactrim 1 tab PO Q12H on 05/15 (started 05/13/17) -START IV MERREM 500MG IV Q 8HRLY 05/18/17 -REPEAT URINE CULTURE Gram negative rai, Gram positive cocci Uro consult Dr. Trey Matias. Recs appreciated. - CT abdomen pelvis ordered- Malpositioned right ureteral stent with proximal pigtail in the right upper pole and distal pigtail in the distal right ureter. Urologic repositioning is recommended. - Cystoscopy planned for 05/21 at 3pm - clear liquid for breakfast, NPO afterwards Renal US 05/18 severe right and mod left hydronephrosis Previous Admission: -Bladder US (05/01/17)- B/L ureteral stents with moderate hydronephrosis R>L -Ucx (04/28/17)- vancomycin resistant E. faecium Leukocytosis WBC 17.5 05/20 Etiology: UTI in setting of SSC ID consult. Dr. Ruth Jones. recs appreciated. -continue IV MERREM 500MG IV Q 8HRLY 05/18/[address] Trey Matias. Recs appreciated Transaminitis AST/ALT/ALK Phos 126/78/195 (05/18/17) AST/ALT/ALK Phos 137/91/184 (05/19/17) AST/ALT/ALK Phos 107/74/182 (05/20/17) Tbili 1.7 Monitor Neurogenic bladder -straight cath PRN; patient is able to do herself Elevated creatinine Cr 1.2 today 05/20 Will continue to monitor GI/DVT ppx -protonix 40mg PO daily SCDs not warranted; pt mobile Lovenox discontinued 05/17
--- NOTE | 2017-05-20 22:31 | CP.PCM.PN ---
Subjective - Date & Time of Evaluation Date of Evaluation: 05/20/17 Time of Evaluation: 22:30 - Subjective Subjective: C/O B/L LEG PAINS LOWER ABDOMINAL /PELVIC DISCOMFORT STILL WITH LEUKOCYTOSIS H/H LOW 5.8 HGB URINE CULTURE REPEAT- P Objective - Vital Signs/Intake and Output Vital Signs (last 24 hours): Temp Pulse Resp BP Pulse Ox 98.2 F 101 H 20 103/67 99 05/20/17 15:00 05/20/17 15:00 05/20/17 15:00 05/20/17 15:00 05/20/17 15:00 Intake and Output: 05/20/17 05/21/17 18:59 06:59 Intake Total 1000 Balance 1000 - Medications Medications: Current Medications Diphenhydramine HCl (Benadryl) 25 mg IVP Q3 PRN PRN Reason: Anaphylaxis Last Admin: 05/20/17 19:27 Dose: 25 mg Folic Acid (Folic Acid) 2 mg PO DAILY [facility] Last Admin: 05/20/17 10:10 Dose: 2 mg Hydromorphone HCl (Dilaudid) 2 mg IVP Q3 PRN PRN Reason: Pain, severe (8-10) Last Admin: 05/20/17 19:29 Dose: 2 mg Meropenem 500 mg/ Sodium (Chloride) 100 mls @ 100 mls/hr IVPB Q8 AP PRN Reason: Protocol Last Admin: 05/20/17 21:25 Dose: 100 mls/hr Pantoprazole Sodium (Protonix Ec Tab) 40 mg PO DAILY [facility] Last Admin: 05/20/17 10:10 Dose: 40 mg - Labs Labs: 05/20/17 07:33 05/20/17 07:33 - Constitutional Appears: No Acute Distress - Head Exam Head Exam: NORMAL INSPECTION - Eye Exam Eye Exam: EOMI, PERRL - ENT Exam ENT Exam: Normal Oropharynx - Neck Exam Neck Exam: Normal Inspection - Respiratory Exam Respiratory Exam: Clear to Ausculation Bilateral - Cardiovascular Exam Cardiovascular Exam: REGULAR RHYTHM, +S1, +S2 - GI/Abdominal Exam GI & Abdominal Exam: Tenderness (SUPRAPUBIC), Normal Bowel Sounds - Extremities Exam Extremities Exam: absent: Calf Tenderness - Neurological Exam Neurological Exam: Alert, Awake, CN II-XII Intact, Normal Gait, Oriented x3 - Skin Skin Exam: Pallor Assessment and Plan (1) Sickle cell pain crisis Status: Acute (2) Leukocytosis Status: Acute (3) UTI (urinary tract infection) Status: Acute (4) Anemia Status: Acute (5) Neurogenic bladder Status: Acute - Assessment and Plan (Free Text) Plan: ON IV MERREM 500MG IV Q 8HRLY 05/18/17. F/U CBC F/U LFTS ANALGESICS F/U REPEAT CULTURES. TO EVALUATE B/L STENTS - CYSTOSCOPY
--- NOTE | 2017-05-20 23:17 | CP.PCM.PN ---
Subjective - Date & Time of Evaluation Date of Evaluation: 05/19/17 Time of Evaluation: 19:00 - Subjective Subjective: Has pain in legs Objective - Vital Signs/Intake and Output Vital Signs (last 24 hours): Temp Pulse Resp BP Pulse Ox 98.2 F 101 H 20 103/67 99 05/20/17 15:00 05/20/17 15:00 05/20/17 15:00 05/20/17 15:00 05/20/17 15:00 Intake and Output: 05/20/17 05/21/17 18:59 06:59 Intake Total 1000 450 Balance 1000 450 - Medications Medications: Current Medications Diphenhydramine HCl (Benadryl) 25 mg IVP Q3 PRN PRN Reason: Anaphylaxis Last Admin: 05/20/17 22:35 Dose: 25 mg Folic Acid (Folic Acid) 2 mg PO DAILY [facility] Last Admin: 05/20/17 10:10 Dose: 2 mg Hydromorphone HCl (Dilaudid) 2 mg IVP Q3 PRN PRN Reason: Pain, severe (8-10) Last Admin: 05/20/17 22:35 Dose: 2 mg Meropenem 500 mg/ Sodium (Chloride) 100 mls @ 100 mls/hr IVPB Q8 AP PRN Reason: Protocol Last Admin: 05/20/17 21:25 Dose: 100 mls/hr Pantoprazole Sodium (Protonix Ec Tab) 40 mg PO DAILY [facility] Last Admin: 05/20/17 10:10 Dose: 40 mg - Labs Labs: 05/20/17 07:33 05/20/17 07:33 - Head Exam Head Exam: ATRAUMATIC - Eye Exam Eye Exam: Normal appearance - ENT Exam ENT Exam: Mucous Membranes Dry - Respiratory Exam Respiratory Exam: NORMAL BREATHING PATTERN - Cardiovascular Exam Cardiovascular Exam: +S1, +S2 - GI/Abdominal Exam GI & Abdominal Exam: Normal Bowel Sounds Assessment and Plan (1) Sickle cell pain crisis Assessment & Plan: IV fluids, pain meds, 02 via NC, folic acid s/p PRBC transfusion Status: Acute (2) Leukocytosis Assessment & Plan: on antibiotics Status: Acute (3) Sickle cell anemia Assessment & Plan: outpatient folic acid Status: Acute
--- NOTE | 2017-05-20 23:19 | CP.PCM.PN ---
Subjective - Date & Time of Evaluation Date of Evaluation: 05/20/17 Time of Evaluation: 18:00 - Subjective Subjective: Has pain in legs H/H declining Objective - Vital Signs/Intake and Output Vital Signs (last 24 hours): Temp Pulse Resp BP Pulse Ox 98.2 F 101 H 20 103/67 99 05/20/17 15:00 05/20/17 15:00 05/20/17 15:00 05/20/17 15:00 05/20/17 15:00 Intake and Output: 05/20/17 05/21/17 18:59 06:59 Intake Total 1000 450 Balance 1000 450 - Medications Medications: Current Medications Diphenhydramine HCl (Benadryl) 25 mg IVP Q3 PRN PRN Reason: Anaphylaxis Last Admin: 05/20/17 22:35 Dose: 25 mg Folic Acid (Folic Acid) 2 mg PO DAILY [facility] Last Admin: 05/20/17 10:10 Dose: 2 mg Hydromorphone HCl (Dilaudid) 2 mg IVP Q3 PRN PRN Reason: Pain, severe (8-10) Last Admin: 05/20/17 22:35 Dose: 2 mg Meropenem 500 mg/ Sodium (Chloride) 100 mls @ 100 mls/hr IVPB Q8 AP PRN Reason: Protocol Last Admin: 05/20/17 21:25 Dose: 100 mls/hr Pantoprazole Sodium (Protonix Ec Tab) 40 mg PO DAILY [facility] Last Admin: 05/20/17 10:10 Dose: 40 mg - Labs Labs: 05/20/17 07:33 05/20/17 07:33 - Head Exam Head Exam: ATRAUMATIC - Eye Exam Eye Exam: Normal appearance - ENT Exam ENT Exam: Mucous Membranes Dry - Respiratory Exam Respiratory Exam: NORMAL BREATHING PATTERN - Cardiovascular Exam Cardiovascular Exam: +S1, +S2 - GI/Abdominal Exam GI & Abdominal Exam: Normal Bowel Sounds Assessment and Plan (1) Sickle cell pain crisis Assessment & Plan: IV fluids, pain meds, folic acid, 02 via NC Status: Acute (2) Leukocytosis Assessment & Plan: on antibiotics may have reactive component from sickle cell Status: Acute (3) Sickle cell anemia Assessment & Plan: outpatient folic acid Status: Acute
[2017-05-21] MEDS: DiphenhydrAMINE 50 mg/ml Inj IVP PRN ×7 (01:34→20:59)
[2017-05-21] MEDS: Meropenem 500 MG in Sodium Chloride 0.9% 100 ML IVPB SCH ×2 (05:24→13:45)
[2017-05-21 07:47] LABS: BASO # 0.2 K/uL (0.0-0.2); BASO % 0.9 % (0.0-2.0); EOS % 5.6 % (0.0-4.0); LYMPH # 3.9 K/uL (1.0-4.3); LYMPH % 22.1 % (20.0-40.0); MEAN CORPUSCULAR HEMOGLOBIN 29.4 pg (27.0-31.0); MEAN CORPUSCULAR HGB CONC 33.8 g/dL (33.0-37.0); MEAN PLATELET VOLUME 8.6 fL (7.2-11.7); MONO # 1.4 K/uL (0.0-0.8); MONO % 7.8 % (0.0-10.0); NEUT # 11.3 K/uL (1.8-7.0); NEUT % 63.6 % (50.0-75.0); NRBC % 0.2 % (0.0-2.0); RBC 1.96 Mil/uL (3.80-5.20); RED CELL DISTRIBUTION WIDTH 18.5 % (11.5-14.5); WHITE BLOOD COUNT 17.8 K/uL (4.8-10.8)
[2017-05-21 07:51] LABS: HEMOGLOBIN 5.8 g/dL (11.0-16.0)
[2017-05-21 08:12] LABS: ALB/GLOB RATIO 0.6 (1.0-2.1); ALBUMIN 3.2 g/dL (3.5-5.0); ALT/SGPT 61 U/L (9-52); AST/SGOT 94 U/L (14-36); BLOOD UREA NITROGEN 25 mg/dL (7-17); CALCIUM 7.5 mg/dl (8.6-10.4); GFR AFRICAN-AMERICAN > 60; GFR NON-AFRICAN AMERICAN 50
--- NOTE | 2017-05-21 09:23 | CP.PCM.PN ---
Subjective - Date & Time of Evaluation Date of Evaluation: 05/21/17 Time of Evaluation: 07:45 - Subjective Subjective: PGY-[address] Hernandez Patient seen and examined at bedside. No acute events overnight. Patient still complains of abdominal pain but managed well with pain medication. Patient is aware of her cystoscopy with Dr. Matias this afternoon. She denies of fever, chills, headache, shortness of breath, chest pain, nausea or vomiting. Objective - Vital Signs/Intake and Output Vital Signs (last 24 hours): Temp Pulse Resp BP Pulse Ox 98.3 F 110 H 20 109/60 98 05/21/17 07:22 05/21/17 07:22 05/21/17 07:22 05/21/17 07:22 05/21/17 07:22 Intake and Output: 05/21/17 05/21/17 06:59 18:59 Intake Total 450 300 Balance 450 300 - Medications Medications: Current Medications Diphenhydramine HCl (Benadryl) 25 mg IVP Q3 PRN PRN Reason: Anaphylaxis Last Admin: 05/21/17 07:35 Dose: 25 mg Folic Acid (Folic Acid) 2 mg PO DAILY [facility] Last Admin: 05/20/17 10:10 Dose: 2 mg Hydromorphone HCl (Dilaudid) 2 mg IVP Q3 PRN PRN Reason: Pain, severe (8-10) Last Admin: 05/21/17 07:35 Dose: 2 mg Meropenem 500 mg/ Sodium (Chloride) 100 mls @ 100 mls/hr IVPB Q8 AP PRN Reason: Protocol Last Admin: 05/21/17 05:24 Dose: 100 mls/hr Pantoprazole Sodium (Protonix Ec Tab) 40 mg PO DAILY [facility] Last Admin: 05/20/17 10:10 Dose: 40 mg - Labs Labs: 05/21/17 07:33 05/21/17 07:33 - Additional Findings Additional findings: - Constitutional Appears: No Acute Distress - Head Exam Head Exam: ATRAUMATIC - Eye Exam Eye Exam: Normal appearance - ENT Exam ENT Exam: Mucous Membranes Moist - Respiratory Exam Respiratory Exam: Clear to Ausculation Bilateral, NORMAL BREATHING PATTERN. absent: Rhonchi, Wheezes - Cardiovascular Exam Cardiovascular Exam: REGULAR RHYTHM, +S1, +S2 - GI/Abdominal Exam GI & Abdominal Exam: Distended (mild), Soft. absent: Tenderness - Back Exam Back Exam: absent: CVA tenderness (L), CVA tenderness (R) - Neurological Exam Neurological Exam: Alert, Awake, Oriented x3 - Psychiatric Exam Psychiatric exam: Normal Affect, Normal Mood - Skin Skin Exam: Dry, Warm Assessment and Plan - Assessment and Plan (Free Text) Assessment: Sickle cell Crisis Admit to med/surg Pt with LBP, leg pain; denies CP, SOB HGB 6.3 on (05/12/17), 6.5 on (05/19), 5.8 today - s/p 1 unit RBC 05/15 Dr. Leyva Hem/Onc sales development consultant, help greatly appreciated -IVF, pain meds, 02 via NC, folic acid, Transfuse under Hgb 5 Folic acid 2mg PO daily Dilaudid 2mg IV q3hrs prn Benadryl 25mg IV Q3hrs prn Urinary tract infection, ESBL + UA (05/12/17): 3+ LE, Nitrate negative, WBC 636, Moderate bacteria Urine Culture: 05/12/17 ESBL Urine Culture: 05/18/17 E. coli, Vancomycin Resistant E. Faecium Negative ID consult. Dr. Ruth Jones. recs appreciated. -DC PO BACTRIM-DAY5 - Discontinued SS Bactrim 1 tab PO Q12H on 05/18 (started 05/15/17) - Discontinued DS Bactrim 1 tab PO Q12H on 05/15 (started 05/13/17) -START IV MERREM 500MG IV Q 8HRLY 05/18/[address] Trey Matias. Recs appreciated. - CT abdomen pelvis ordered- Malpositioned right ureteral stent with proximal pigtail in the right upper pole and distal pigtail in the distal right ureter. Urologic repositioning is recommended. - Cystoscopy planned for 05/21 at 3pm - clear liquid for breakfast, NPO afterwards for OR Renal US 05/18 severe right and mod left hydronephrosis Previous Admission: -Bladder US (05/01/17)- B/L ureteral stents with moderate hydronephrosis R>L -Ucx (04/28/17)- vancomycin resistant E. faecium Leukocytosis WBC 17.8 05/21 Etiology: UTI in setting of SSC ID consult. Dr. Ruth Jones. recs appreciated. -continue IV MERREM 500MG IV Q 8HRLY 05/18/[address] Trey Matias. Recs appreciated Transaminitis AST/ALT/ALK Phos 126/78/195 (05/18/17) AST/ALT/ALK Phos 137/91/184 (05/19/17) AST/ALT/ALK Phos 94/61/175 (05/21/17) Tbili 1.6 Monitor Neurogenic bladder -straight cath PRN; patient is able to do herself Elevated creatinine Cr 1.2 today Will continue to monitor GI/DVT ppx protonix 40mg PO daily SCDs not warranted; pt mobile Lovenox discontinued 05/17 Patient is actively ambulating Discussed with attending Dr. Hernandez All management per Dr. Hernandez
[2017-05-21] MEDS: Pantoprazole 40 mg EC Tab PO SCH (09:24)
[2017-05-21] MEDS: Dextrose 5%/0.45% NS 1,000 ML IV SCH (11:01)
--- NOTE | 2017-05-21 14:34 | CP.PCM.PCO ---
Assessment & Plan - Assessment and Plan (Free Text) Assessment: Pt is a 36 yo f ho sickle cell currently in crisis and expected to undergo cysto / stent insertion with GA. Spoke with Dr. Leyva from oncology regarding patients increased risk for intraoperative cardiac/ resp events due to anemia. Will transfuse 1 units at this time.
--- NOTE | 2017-05-21 14:34 | CP.PCM.PN ---
Subjective - Date & Time of Evaluation Date of Evaluation: 05/21/17 Time of Evaluation: 07:20 - Subjective Subjective: clinically same Objective - Vital Signs/Intake and Output Vital Signs (last 24 hours): Temp Pulse Resp BP Pulse Ox 98.3 F 110 H 20 109/60 98 05/21/17 07:22 05/21/17 07:22 05/21/17 07:22 05/21/17 07:22 05/21/17 07:22 Intake and Output: 05/21/17 05/21/17 06:59 18:59 Intake Total 450 1075 Balance 450 1075 - Medications Medications: Current Medications Diphenhydramine HCl (Benadryl) 25 mg IVP Q3 PRN PRN Reason: Anaphylaxis Last Admin: 05/21/17 14:08 Dose: 25 mg Folic Acid (Folic Acid) 2 mg PO DAILY [facility] Last Admin: 05/21/17 09:24 Dose: Not Given Hydromorphone HCl (Dilaudid) 2 mg IVP Q3 PRN PRN Reason: Pain, severe (8-10) Last Admin: 05/21/17 14:08 Dose: 2 mg Meropenem 500 mg/ Sodium (Chloride) 100 mls @ 100 mls/hr IVPB Q8 AP PRN Reason: Protocol Last Admin: 05/21/17 13:45 Dose: 100 mls/hr Dextrose/Sodium Chloride (Dextrose 5%/0.45% Ns 1000 Ml) 1,000 mls @ 75 mls/hr IV .[id number] [facility] Last Admin: 05/21/17 11:01 Dose: 75 mls/hr Pantoprazole Sodium (Protonix Ec Tab) 40 mg PO DAILY [facility] Last Admin: 05/21/17 09:24 Dose: Not Given - Labs Labs: 05/21/17 07:33 05/21/17 07:33 - Constitutional Appears: Well - Head Exam Head Exam: ATRAUMATIC, NORMAL INSPECTION, NORMOCEPHALIC - Eye Exam Eye Exam: EOMI, Normal appearance, PERRL Pupil Exam: NORMAL ACCOMODATION, PERRL - ENT Exam ENT Exam: Mucous Membranes Moist, Normal Exam - Neck Exam Neck Exam: Full ROM, Normal Inspection. absent: Lymphadenopathy - Respiratory Exam Respiratory Exam: Decreased Breath Sounds - Cardiovascular Exam Cardiovascular Exam: REGULAR RHYTHM, +S1, +S2 - GI/Abdominal Exam GI & Abdominal Exam: Soft, Diminished Bowel Sounds - Rectal Exam Rectal Exam: Deferred Assessment and Plan (1) Anemia Status: Acute (2) Leukocytosis Status: Acute (3) Sickle cell pain crisis Status: Acute (4) UTI (urinary tract infection) Status: Acute (5) Animal bite wound Status: Acute (6) Chronic pain disorder Status: Acute (7) Leg pain Status: Acute (8) Leukocytosis Status: Acute (9) Myalgia Status: Acute (10) Neurogenic bladder Status: Acute (11) Pain Status: Acute (12) Severe anemia Status: Acute (13) Sickle cell anemia Status: Acute (14) Sickle cell anemia with pain Status: Acute - Assessment and Plan (Free Text) Plan: Continue IV fluids Continue pain medications discontinue meropenem and observe off antibiotic Microbiology revealed VRE sensitive to tigecycline and meropenem Follow-up with ID consult Patient's stent to be removed patient was n.p.o. Follow-up with the urologist
[2017-05-21] MEDS ORDERED: cefTRIAXone 1 gm 0 GM/0 ML BAG IVPB ONE (15:15)
[2017-05-21] MEDS ORDERED: Lidocaine 2% Jelly (Uro-Jet) ONE (15:16)
--- NOTE | 2017-05-21 15:50 | PCM.URO ---
Urology Progress Note - Objective Lab Studies: Reviewed (plans: reschedule as an out pt full note is dictated) Lab Results Last 24 Hours: Laboratory Results - last 24 hr 05/21/17 05/21/17 07:33 07:33 WBC 17.8 H RBC 1.96 L Hgb 5.8 L* Hct 17.0 L MCV 87.0 MCH 29.4 MCHC 33.8 RDW 18.5 H Plt Count 159 MPV 8.6 Neut % (Auto) 63.6 Lymph % (Auto) 22.1 [place] % (Auto) 7.8 Eos % (Auto) 5.6 H Baso % (Auto) 0.9 Neut # (Auto) 11.3 H Lymph # (Auto) 3.9 [place] # (Auto) 1.4 H Eos # (Auto) 1.0 H Baso # (Auto) 0.2 Sodium 139 Potassium 5.0 Chloride 108 H Carbon Dioxide 21 L Anion Gap 15 BUN 25 H Creatinine 1.2 Est GFR ( Amer) > 60 Est GFR (Non-Af Amer) 50 Random Glucose 107 H Calcium 7.5 L Total Bilirubin 1.6 H AST 94 H ALT 61 H Alkaline Phosphatase 175 H Total Protein 8.1 Albumin 3.2 L Globulin 5.0 H Albumin/Globulin Ratio 0.6 L Intake & Output: Intake & Output 05/20/17 05/21/17 05/21/17 18:59 06:59 18:59 Intake Total 8074 602 0863 Balance 8051 625 0733 Intake: Intake, IV Amount 200 100 475 Right Subclavian 200 100 475 Oral 800 350 600 Other: # Voids Urine, Voided 3 3 2 # Bowel Movements 0 0 Vital Signs: Vital Signs - 24 hr 05/21/17 05/21/17 00:00 07:22 Temperature 98.4 F 98.3 F Pulse Rate 97 H 110 H Respiratory 20 20 Rate Blood Pressure 100/65 109/60 O2 Sat by Pulse 96 98 Oximetry
[2017-05-21 20:57] VITALS: RESP 20
--- NOTE | 2017-05-21 22:03 | CP.PCM.PN ---
Subjective - Date & Time of Evaluation Date of Evaluation: 05/21/17 Time of Evaluation: 22:03 - Subjective Subjective: afebrile, FEELS WEAK.C/O PAIN LEGS/BACK H/H DROPPED. PT FOR 2UNITS PRBC TRANSFUSION. PROCEDURE SCHEDULED OPD. LABS REVIEWED; URINE CULTURE +VE REPEAT FOR E.COLI/VRE ? CONTAMINANT/COLINIZATION. (NEUROGENIC BLADDER ) WBC 17.3 HIGH REACTIVE 2NDRY TO SSC Objective - Vital Signs/Intake and Output Vital Signs (last 24 hours): Temp Pulse Resp BP Pulse Ox 98.3 F 104 H 20 129/80 100 05/21/17 20:22 05/21/17 20:22 05/21/17 20:22 05/21/17 20:22 05/21/17 15:00 Intake and Output: 05/21/17 05/22/17 18:59 06:59 Intake Total 1075 0 Balance 1075 0 - Medications Medications: Current Medications Diphenhydramine HCl (Benadryl) 25 mg IVP Q3 PRN PRN Reason: Anaphylaxis Last Admin: 05/21/17 20:59 Dose: 25 mg Folic Acid (Folic Acid) 2 mg PO DAILY [facility] Last Admin: 05/21/17 09:24 Dose: Not Given Hydromorphone HCl (Dilaudid) 2 mg IVP Q3 PRN PRN Reason: Pain, severe (8-10) Last Admin: 05/21/17 21:00 Dose: 2 mg Dextrose/Sodium Chloride (Dextrose 5%/0.45% Ns 1000 Ml) 1,000 mls @ 75 mls/hr IV .[id number] [facility] Last Admin: 05/21/17 11:01 Dose: 75 mls/hr Pantoprazole Sodium (Protonix Ec Tab) 40 mg PO DAILY [facility] Last Admin: 05/21/17 09:24 Dose: Not Given - Labs Labs: 05/21/17 07:33 05/21/17 07:33 - Constitutional Appears: No Acute Distress, Chronically Ill - Head Exam Head Exam: NORMAL INSPECTION - Eye Exam Eye Exam: EOMI, PERRL - ENT Exam ENT Exam: Normal Oropharynx - Neck Exam Neck Exam: Normal Inspection - Respiratory Exam Respiratory Exam: Clear to Ausculation Bilateral - GI/Abdominal Exam GI & Abdominal Exam: Soft, Normal Bowel Sounds - Extremities Exam Extremities Exam: Normal Capillary Refill. absent: Calf Tenderness, Pedal Edema - Neurological Exam Neurological Exam: Alert, Awake, CN II-XII Intact, Normal Gait - Psychiatric Exam Psychiatric exam: Normal Mood - Skin Skin Exam: Pallor, Warm Assessment and Plan (1) Sickle cell pain crisis Status: Acute (2) Leukocytosis Status: Acute (3) UTI (urinary tract infection) Status: Acute (4) Anemia Status: Acute (5) Neurogenic bladder Status: Acute - Assessment and Plan (Free Text) Plan: DC IV MERREM. OBSERVE OFF ANTIBIOTICS . ANALGESICSAS PER PMD. BLOOD TRANSFUSION PER HEMATOLOGY. F/U WITH OPD . CASE DISCUSSED WITH RESIDENT/AND CONDUCTOR ORCHESTRA -MS SEAY.
--- NOTE | 2017-05-21 22:51 | CP.PCM.PN ---
Subjective - Date & Time of Evaluation Date of Evaluation: 05/21/17 Time of Evaluation: 15:00 - Subjective Subjective: Feels weak Discussed with anesthesia; concern for intraoperative cardiac/respiratory event with current H/H levels, for 2U PRBC prior to OR Objective - Vital Signs/Intake and Output Vital Signs (last 24 hours): Temp Pulse Resp BP Pulse Ox 98.4 F 104 H 20 134/84 100 05/21/17 22:33 05/21/17 22:33 05/21/17 22:33 05/21/17 22:33 05/21/17 15:00 Intake and Output: 05/21/17 05/22/17 18:59 06:59 Intake Total 1075 350 Balance 1075 350 - Medications Medications: Current Medications Diphenhydramine HCl (Benadryl) 25 mg IVP Q3 PRN PRN Reason: Anaphylaxis Last Admin: 05/21/17 20:59 Dose: 25 mg Folic Acid (Folic Acid) 2 mg PO DAILY [facility] Last Admin: 05/21/17 09:24 Dose: Not Given Hydromorphone HCl (Dilaudid) 2 mg IVP Q3 PRN PRN Reason: Pain, severe (8-10) Last Admin: 05/21/17 21:00 Dose: 2 mg Dextrose/Sodium Chloride (Dextrose 5%/0.45% Ns 1000 Ml) 1,000 mls @ 75 mls/hr IV .[id number] [facility] Last Admin: 05/21/17 11:01 Dose: 75 mls/hr Pantoprazole Sodium (Protonix Ec Tab) 40 mg PO DAILY [facility] Last Admin: 05/21/17 09:24 Dose: Not Given - Labs Labs: 05/21/17 07:33 05/21/17 07:33 - Head Exam Head Exam: ATRAUMATIC - Eye Exam Eye Exam: Normal appearance - ENT Exam ENT Exam: Mucous Membranes Dry - Respiratory Exam Respiratory Exam: NORMAL BREATHING PATTERN - Cardiovascular Exam Cardiovascular Exam: +S1, +S2 - GI/Abdominal Exam GI & Abdominal Exam: Normal Bowel Sounds Assessment and Plan (1) Sickle cell pain crisis Assessment & Plan: IV fluids, pain meds, folic acid, 02 via NC transfusion support prior to OR for goal hgb ~ 8 Status: Acute (2) Leukocytosis Assessment & Plan: on antibiotics Status: Acute (3) Sickle cell anemia Assessment & Plan: folic acid Status: Acute
[2017-05-22] MEDS: DiphenhydrAMINE 50 mg/ml Inj IVP PRN ×7 (00:10→18:47)
[2017-05-22 06:45] LABS: BASO # 0.2 K/uL (0.0-0.2); EOS # 0.8 K/uL (0.0-0.7); EOS % 4.2 % (0.0-4.0); HEMOGLOBIN 7.2 g/dL (11.0-16.0); LYMPH # 3.7 K/uL (1.0-4.3); LYMPH % 20.3 % (20.0-40.0); MEAN CELL VOLUME 87.3 fL (81.0-99.0); MEAN CORPUSCULAR HEMOGLOBIN 29.2 pg (27.0-31.0); MEAN CORPUSCULAR HGB CONC 33.5 g/dL (33.0-37.0); MEAN PLATELET VOLUME 8.7 fL (7.2-11.7); MONO # 1.2 K/uL (0.0-0.8); MONO % 6.3 % (0.0-10.0); NEUT # 12.5 K/uL (1.8-7.0); NEUT % 68.2 % (50.0-75.0); NRBC % 0.2 % (0.0-2.0); RBC 2.45 Mil/uL (3.80-5.20); RED CELL DISTRIBUTION WIDTH 18.1 % (11.5-14.5); WHITE BLOOD COUNT 18.3 K/uL (4.8-10.8)
[2017-05-22 07:19] LABS: ALB/GLOB RATIO 0.7 (1.0-2.1); ALBUMIN 3.5 g/dL (3.5-5.0); ALT/SGPT 62 U/L (9-52); AST/SGOT 109 U/L (14-36); BLOOD UREA NITROGEN 22 mg/dL (7-17); CALCIUM 7.8 mg/dl (8.6-10.4); GFR AFRICAN-AMERICAN > 60; GFR NON-AFRICAN AMERICAN 56
[2017-05-22] MEDS: Pantoprazole 40 mg EC Tab PO SCH (09:22)
--- NOTE | 2017-05-22 12:40 | CP.PCM.PN ---
Subjective - Date & Time of Evaluation Date of Evaluation: 05/22/17 Time of Evaluation: 07:20 - Subjective Subjective: clinically same Objective - Vital Signs/Intake and Output Vital Signs (last 24 hours): Temp Pulse Resp BP Pulse Ox 98.5 F 97 H 20 106/70 98 05/22/17 08:23 05/22/17 08:23 05/22/17 08:23 05/22/17 08:23 05/22/17 08:23 Intake and Output: 05/22/17 05/22/17 06:59 18:59 Intake Total 1350 Balance 1350 - Medications Medications: Current Medications Diphenhydramine HCl (Benadryl) 25 mg IVP Q3 PRN PRN Reason: Anaphylaxis Last Admin: 05/22/17 12:22 Dose: 25 mg Folic Acid (Folic Acid) 2 mg PO DAILY [facility] Last Admin: 05/22/17 09:22 Dose: 2 mg Hydromorphone HCl (Dilaudid) 2 mg IVP Q3 PRN PRN Reason: Pain, severe (8-10) Last Admin: 05/22/17 12:22 Dose: 2 mg Dextrose/Sodium Chloride (Dextrose 5%/0.45% Ns 1000 Ml) 1,000 mls @ 75 mls/hr IV .[id number] [facility] Last Admin: 05/22/17 00:00 Dose: Not Given Pantoprazole Sodium (Protonix Ec Tab) 40 mg PO DAILY [facility] Last Admin: 05/22/17 09:22 Dose: 40 mg - Labs Labs: 05/22/17 06:41 05/22/17 06:41 - Constitutional Appears: Well - Head Exam Head Exam: ATRAUMATIC, NORMAL INSPECTION, NORMOCEPHALIC - Eye Exam Eye Exam: EOMI, Normal appearance, PERRL Pupil Exam: NORMAL ACCOMODATION, PERRL - ENT Exam ENT Exam: Mucous Membranes Moist, Normal Exam - Neck Exam Neck Exam: Full ROM, Normal Inspection. absent: Lymphadenopathy - Respiratory Exam Respiratory Exam: Decreased Breath Sounds - Cardiovascular Exam Cardiovascular Exam: REGULAR RHYTHM, +S1, +S2 - GI/Abdominal Exam GI & Abdominal Exam: Soft, Diminished Bowel Sounds - Rectal Exam Rectal Exam: Deferred Assessment and Plan (1) Anemia Status: Acute (2) Leukocytosis Status: Acute (3) Sickle cell pain crisis Status: Acute (4) UTI (urinary tract infection) Status: Acute (5) Animal bite wound Status: Acute (6) Chronic pain disorder Status: Acute (7) Leg pain Status: Acute (8) Leukocytosis Status: Acute (9) Myalgia Status: Acute (10) Neurogenic bladder Status: Acute (11) Pain Status: Acute (12) Severe anemia Status: Acute (13) Sickle cell anemia Status: Acute (14) Sickle cell anemia with pain Status: Acute - Assessment and Plan (Free Text) Plan: Sickle cell Crisis Admit to med/surg Pt with LBP, leg pain; denies CP, SOB HGB 6.3 on (05/12/17), 6.5 on (05/19), 5.8 today - s/p 1 unit RBC 05/15 Dr. Leyva Hem/Onc web development consultant, help greatly appreciated -IVF, pain meds, 02 via NC, folic acid, Transfuse under Hgb 5 Folic acid 2mg PO daily Dilaudid 2mg IV q3hrs prn Benadryl 25mg IV Q3hrs prn Urinary tract infection, ESBL + UA (05/12/17): 3+ LE, Nitrate negative, WBC 636, Moderate bacteria Urine Culture: 05/12/17 ESBL Urine Culture: 05/18/17 E. coli, Vancomycin Resistant E. Faecium Negative ID consult. Dr. Ruth Jones. recs appreciated. -DC PO BACTRIM-DAY5 - Discontinued SS Bactrim 1 tab PO Q12H on 05/18 (started 05/15/17) - Discontinued DS Bactrim 1 tab PO Q12H on 05/15 (started 05/13/17) -START IV MERREM 500MG IV Q 8HRLY 05/18/[address] Trey Matias. Recs appreciated. - CT abdomen pelvis ordered- Malpositioned right ureteral stent with proximal pigtail in the right upper pole and distal pigtail in the distal right ureter. Urologic repositioning is recommended. - Cystoscopy planned for 05/21 at 3pm - clear liquid for breakfast, NPO afterwards for OR Renal US 05/18 severe right and mod left hydronephrosis Previous Admission: -Bladder US (05/01/17)- B/L ureteral stents with moderate hydronephrosis R>L -Ucx (04/28/17)- vancomycin resistant E. faecium Leukocytosis WBC 17.8 05/21 Etiology: UTI in setting of SSC ID consult. Dr. Ruth Jones. recs appreciated. -continue IV MERREM 500MG IV Q 8HRLY 05/18/[address] Trey Matias. Recs appreciated Transaminitis AST/ALT/ALK Phos 126/78/195 (05/18/17) AST/ALT/ALK Phos 137/91/184 (05/19/17) AST/ALT/ALK Phos 94/61/175 (05/21/17) Tbili 1.6 Monitor Neurogenic bladder -straight cath PRN; patient is able to do herself Elevated creatinine Cr 1.2 today Will continue to monitor GI/DVT ppx protonix 40mg PO daily SCDs not warranted; pt mobile Lovenox discontinued 05/17 Patient is actively ambulating
[2017-05-22] MEDS: Dextrose 5%/0.45% NS 1,000 ML IV SCH ×2 (12:55)
--- NOTE | 2017-05-22 16:14 | CP.PCM.PN ---
Subjective - Date & Time of Evaluation Date of Evaluation: 05/22/17 Time of Evaluation: 11:00 - Subjective Subjective: aler and orientedx3, no acute pain, no fever, NAD. Objective - Vital Signs/Intake and Output Vital Signs (last 24 hours): Temp Pulse Resp BP Pulse Ox 98.5 F 97 H 20 106/70 98 05/22/17 08:23 05/22/17 08:23 05/22/17 08:23 05/22/17 08:23 05/22/17 08:23 Intake and Output: 05/22/17 05/22/17 06:59 18:59 Intake Total 1350 400 Output Total 2 Balance 1350 398 - Medications Medications: Current Medications Diphenhydramine HCl (Benadryl) 25 mg IVP Q3 PRN PRN Reason: Anaphylaxis Last Admin: 05/22/17 15:42 Dose: 25 mg Folic Acid (Folic Acid) 2 mg PO DAILY [facility] Last Admin: 05/22/17 09:22 Dose: 2 mg Hydromorphone HCl (Dilaudid) 2 mg IVP Q3 PRN PRN Reason: Pain, severe (8-10) Last Admin: 05/22/17 15:42 Dose: 2 mg Dextrose/Sodium Chloride (Dextrose 5%/0.45% Ns 1000 Ml) 1,000 mls @ 75 mls/hr IV .[id number] [facility] Last Admin: 05/22/17 12:55 Dose: Not Given Pantoprazole Sodium (Protonix Ec Tab) 40 mg PO DAILY [facility] Last Admin: 05/22/17 09:22 Dose: 40 mg - Labs Labs: 05/22/17 06:41 05/22/17 06:41 Assessment and Plan - Assessment and Plan (Free Text) Assessment: Patient is seen and examined. Alert and orientedx3, denies cough or abdominal pains. Seen by DR Alba Hernandez today, plan to discharge home today , Advised to follow up with DR Matias in his office for further work up as outpatient. Patient verbalized understanding. Dilaudid 2mg tablet #20 given for breakthrough pains.
[2017-05-22 16:18] VITALS: BP 139/72; PULSE 93; TEMP 98.1; O2SAT 99
--- NOTE | 2017-05-22 20:39 | CP.PCM.PN ---
Subjective - Date & Time of Evaluation Date of Evaluation: 05/22/17 Time of Evaluation: 17:00 - Subjective Subjective: Feeling better s/p 2U PRBC urologic procedure not done; for outpatient Objective - Vital Signs/Intake and Output Vital Signs (last 24 hours): Temp Pulse Resp BP Pulse Ox 98.1 F 93 H 20 139/72 99 05/22/17 15:00 05/22/17 15:00 05/22/17 15:00 05/22/17 15:00 05/22/17 15:00 Intake and Output: 05/22/17 05/23/17 18:59 06:59 Intake Total 400 Output Total 2 Balance 398 - Labs Labs: 05/22/17 06:41 05/22/17 06:41 - Head Exam Head Exam: ATRAUMATIC - Eye Exam Eye Exam: Normal appearance - ENT Exam ENT Exam: Mucous Membranes Dry - Respiratory Exam Respiratory Exam: NORMAL BREATHING PATTERN - Cardiovascular Exam Cardiovascular Exam: +S1, +S2 - GI/Abdominal Exam GI & Abdominal Exam: Normal Bowel Sounds Assessment and Plan (1) Sickle cell pain crisis Assessment & Plan: IV fluids, pain meds, 02 via NC, folic acid s/p PRBC transfusion Status: Acute (2) Leukocytosis Assessment & Plan: outpatient urologic procedure s/p antibiotics Status: Acute (3) Sickle cell anemia Assessment & Plan: outpatient folic acid Status: Acute
== END 2017-05-22 20:33 | disposition home or self-care (01) | DRG 812 ==
LOC: C.ER 13:09 → C.3T 17:14 → C.9E 17:14 → OBSVTOIN 05-14 15:37 → C.3T 05-15 09:54
PROVIDERS: ADMIT Internal Medicine Nephrology; ATTEND Internal Medicine Nephrology
DX: D57.00 Hb-SS disease with crisis, unspecified (principal); N13.30 Unspecified hydronephrosis; N39.0 Urinary tract infection, site not specified; G89.29 Other chronic pain; N31.9 Neuromuscular dysfunction of bladder, unspecified; N92.6 Irregular menstruation, unspecified; Z87.440 Personal history of urinary (tract) infections; M79.1 Myalgia

== ENCOUNTER 2017-06-15 12:55 | Day surgery (SDC) | payer MEDICARE ==
[2017-06-15] MEDS ORDERED: cefTRIAXone IV 1 gm in Dextros 50 ML IVPB ONE (15:40)
[2017-06-15] MEDS ORDERED: Propofol 10 mg/ml Inj (20 ML) ONE (15:49)
[2017-06-15] MEDS ORDERED: Midazolam 2 MG/2 ML VIAL ONE (15:49)
--- NOTE | 2017-06-15 16:30 | RAD ---
HISTORY: AGNIESZKA STENT COMPARISON: 12/18/2014 FINDINGS: BOWEL: Normal. No obstruction. No free air. BONES: Normal. OTHER FINDINGS: Documentation of bilateral double-J stent catheters. IMPRESSION: Double-J stent catheters identified bilaterally although the precise location of the right stent is uncertain. Proximal loop is core elements 3 cm above the gallbladder fossa clips
[2017-06-15] MEDS ORDERED: HYDROmorphone 0.5 mg/0.5 ml ISec IVP PRN (16:53)
[2017-06-15 17:39] VITALS: O2SAT 100
[2017-06-15 17:45] VITALS: BP 95/68; PULSE 92; RESP 18; TEMP 97
--- NOTE | 2017-06-16 08:06 | RAD ---
PROCEDURE: Intraoperative fluoroscopy HISTORY: AGNIESZKA STENT COMPARISON: Not available TECHNIQUE: Intraoperative fluoroscopy was provided for placement of left ureteral stent. Total time of fluoroscopy was 3.6 seconds. FINDINGS: Several fluoroscopic spot films are submitted demonstrating placement of left ureteral stent. Right ureteral stent in situ. IMPRESSION: Fluoroscopy provided.
--- NOTE | 2017-07-15 06:46 | OP ---
PROCEDURE DATE: 06/15/2017 PREOPERATIVE DIAGNOSES: Bilateral hydronephrosis of unclear etiology, retained stents bilaterally, hematuria, voiding dysfunction, perhaps a component of neurogenic bladder or perhaps a component of reflux. POSTOPERATIVE DIAGNOSES: Bilateral hydronephrosis of unclear etiology, retained stents bilaterally, hematuria, voiding dysfunction, perhaps a component of neurogenic bladder or perhaps a component of reflux. PROCEDURE PERFORMED: Cystoscopy, removal of a left ureteral stent, and insertion of a left ureteral stent. COMPLICATIONS: There were no complications. SURGEON: Emigdio Matias MD INDICATIONS: See history and physical for further details and consultations. See previous chart notes from previous admissions. As well see multiple notes on this patient. In brief, this is a pleasant lady who has underlying multiple medical issues. Again, this is all outlined through the chart, see previous notes. I met the patient now. She had stents inserted, which she says is from 09/2015. She is not sure why they were inserted, but she had bilateral stents in place. OPERATIVE FINDINGS: The right double-J stent was in the kidney and goes down to about the very distal ureter, but just a little proximal to the right UVJ to the point that we could not identify it in the bladder itself. See the plan listed below and I think we are going to come back for ureteroscopy based on the findings on the left side. As all outlined right now, on the left side, we were able to remove and insert a new one, but it is somewhat encrusted. I want to be more prepared with the patient and give her what possible dystrophy that we may find, but on the right side, the stent we could see it in place but we cannot get to it today . On the left side, we reached out to the stent. We were able to remove it. It is somewhat encrusted, but not incredibly encrusted to the point that we cannot put a wire up, see the below notes, but we are able to remove it and put a new one back in, which we did. Further, upon questioning the patient, she is not exactly sure why she had bilateral stents inserted. It was inserted by another doctor elsewhere. Trying to piece together the story, the patient is not exactly sure, and either way, she is now here for the above procedures of the cystoscopy, removal of left double-J stent, insertion of a new one. DESCRIPTION OF PROCEDURE: After obtaining informed consent and providing antibiotic prophylaxis, time-out was called to confirm the patient positioning. We introduced the cystoscope via the urethra. We identified the left double-J stent. A KUB revealed the right double-J stent all the way down to the distal bladder. At this point, we removed the old double-J stent and it is actually is a little encrusted, but in place but it does slide down reasonably okay. At this point, we cannot put a wire through it, but I am able to go back scope and put a wire adjacent to it, just left to the kidney. Once I do this, I am confident that I have a wire kidney by fluoroscopic imaging. I now try to pull the stent out the rest of the way and it does come out without too much difficulty at all and it is again a little encrusted, but not overly encrusted. Now on further examination of the double J stent, we did grab the wire and placed an open-ended over it and injected contrast for retrograde pyelogram just to outline the kidney. We put a new wire back in through the double-J stent in. , the kidney drains well, especially given the fact that the patient is going to get back to the right side and I will take left side out at that time. Meanwhile, I am working on it. The patient tolerated the procedure well without complications. Emigdio Matias MD
== END 2017-06-15 18:27 | disposition home or self-care (01) ==
LOC: C.SDS 12:55
PROVIDERS: ATTEND Urology
DX: N31.9 Neuromuscular dysfunction of bladder, unspecified (principal); N13.30 Unspecified hydronephrosis
CPT/HCPCS: 52310; C1769; C2617; J0696; J1170; J1580

== ENCOUNTER 2017-06-16 23:12 | Inpatient (IN) | payer MEDICARE ==
[2017-06-16 23:12] VITALS: BMI 22.4
[2017-06-17] MEDS ORDERED: Sodium Chloride 0.9% 1,000 ML IV ONE (00:31)
[2017-06-17 02:08] LABS: BASO # 0.2 K/uL (0.0-0.2); BASO % 1.1 % (0.0-2.0); EOS # 0.7 K/uL (0.0-0.7); EOS % 3.3 % (0.0-4.0); HEMOGLOBIN 6.6 g/dL (11.0-16.0); LYMPH # 3.7 K/uL (1.0-4.3); LYMPH % 18.2 % (20.0-40.0); MEAN CELL VOLUME 88.1 fL (81.0-99.0); MEAN CORPUSCULAR HEMOGLOBIN 30.1 pg (27.0-31.0); MEAN CORPUSCULAR HGB CONC 34.2 g/dL (33.0-37.0); MEAN PLATELET VOLUME 8.9 fL (7.2-11.7); MONO # 1.6 K/uL (0.0-0.8); MONO % 7.9 % (0.0-10.0); NEUT # 13.9 K/uL (1.8-7.0); NEUT % 69.5 % (50.0-75.0); RBC 2.19 Mil/uL (3.80-5.20); RED CELL DISTRIBUTION WIDTH 18.4 % (11.5-14.5); WHITE BLOOD COUNT 20.1 K/uL (4.8-10.8)
[2017-06-17 02:34] LABS: ALB/GLOB RATIO 0.8 (1.0-2.1); ALBUMIN 3.5 g/dL (3.5-5.0); ALT/SGPT 95 U/L (9-52); AST/SGOT 97 U/L (14-36); BLOOD UREA NITROGEN 21 mg/dL (7-17); GFR AFRICAN-AMERICAN > 60; GFR NON-AFRICAN AMERICAN > 60
[2017-06-17] MEDS ORDERED: Ciprofloxacin 400mg/200ml D5W 400 MG/200 ML BAG IVPB STA (03:44)
[2017-06-17] MEDS ORDERED: oxyCODONE 5 mg Immediate Release Tab PO PRN (05:10)
[2017-06-17] MEDS ORDERED: Ciprofloxacin 400mg/200ml D5W 400 MG/200 ML BAG IVPB ONE (05:11)
--- NOTE | 2017-06-17 05:15 | CP.PCM.HP ---
<NéstorTyree - Last Filed: 06/17/17 05:18> History of Present Illness - History of Present Illness History of Present Illness: CC: abdominal pain PMD: Dr. Alba Hernandez This patient is well known to the handbook writer, comes to the hospital frequently for sickle cell crisis. She states that after she had a urological procedure the other day for a kidney stone (had a stent placed) her abdominal pain worsened. She denies any urinary symptoms, no frequency, urgency, dysuria fevers/chills, BLANK, CP, SOB, no dyspnea on exertion, is able to move without problem and go about her daily activities. She states her hemoglobin is normally around a 7, and she normally only gets transfused when she is in the 5's for her hemoglobin. She states she is only taking folic acid for her sickle cell anemia , as her financial services sales representative took her off of hydroxyurea as it "was not working". She has a port for access on her right upper chest, for frequent blood draws and transfusions. She also takes 2mg of Dilaudid Q4H at home for pain control. Present on Admission - Present on Admission Any Indicators Present on Admission: No History of DVT/PE: No History of Uncontrolled Diabetes: No Urinary Catheter: No Decubitus Ulcer Present: No Past Patient History - Infectious Disease Hx of Infectious Diseases: None - Past Medical History & Family History Past Medical History?: Yes - Past Social History Smoking Status: Never Smoked - CARDIAC Hx Cardiac Disorders: No - PULMONARY Hx Respiratory Disorders: No - NEUROLOGICAL Hx Neurological Disorder: Yes Hx Migraine: Yes - HEENT Hx HEENT Problems: No - RENAL Hx Chronic Kidney Disease: No Hx Neurogenic Bladder: Yes (2016 self catheterize) Other/Comment: stent placement 06-15-2017 - ENDOCRINE/METABOLIC Hx Endocrine Disorders: No Hx Hyperthyroidism: No - HEMATOLOGICAL/ONCOLOGICAL Hx Blood Disorders: Yes Hx Anemia: Yes Hx Blood Transfusions: Yes Hx Blood Transfusion Reaction: No Hx Sickle Cell Disease: Yes (sickle cell crisis 09/2017) - INTEGUMENTARY Hx Dermatological Problems: No - MUSCULOSKELETAL/RHEUMATOLOGICAL Hx Musculoskeletal Disorders: No Hx Falls: No - GASTROINTESTINAL Hx Gastrointestinal Disorders: No - GENITOURINARY/GYNECOLOGICAL Hx Genitourinary Disorders: No - PSYCHIATRIC Hx Psychophysiologic Disorder: No Hx Substance Use: No - SURGICAL HISTORY Hx Surgeries: Yes Hx Cholecystectomy: Yes (2003) Hx Vascular Surgery: Yes (odilon cath right chest) Other/Comment: back surgery sec to scoliosis - ANESTHESIA Hx Anesthesia: Yes Hx Anesthesia Reactions: No Hx Malignant Hyperthermia: No Meds Allergies/Adverse Reactions: Allergies Allergy/AdvReac Type Severity Reaction Status Date / Time droperidol Allergy Verified 05/02/17 17:54 tramadol Allergy Verified 05/02/17 17:54 inapsine Allergy RASH Uncoded 05/02/17 17:54 Physical Exam - Constitutional Appears: Well, Non-toxic Additional comments: patient is sitting comfortably in bed, able to move about without issue, with no complaints - Head Exam Head Exam: ATRAUMATIC, NORMAL INSPECTION - Eye Exam Eye Exam: EOMI, Normal appearance (injected conjunctiva ) - ENT Exam ENT Exam: Mucous Membranes Moist - Neck Exam Neck exam: Positive for: Full Rom. Negative for: Lymphadenopathy, Thyromegaly - Respiratory Exam Respiratory Exam: Clear to Auscultation Bilateral, NORMAL BREATHING PATTERN. absent: Rales, Rhonchi, Wheezes - Cardiovascular Exam Cardiovascular Exam: Tachycardia, REGULAR RHYTHM, +S1, +S2 - GI/Abdominal Exam GI & Abdominal Exam: Normal Bowel Sounds, Organomegaly (markedly enlarged liver down to umbilicus no tenderness whatsoever ), Soft. absent: Tenderness - Extremities Exam Extremities exam: Positive for: full ROM, normal capillary refill, normal inspection, pedal pulses present. Negative for: calf tenderness, joint swelling , pedal edema, tenderness - Back Exam Back exam: NORMAL INSPECTION. absent: CVA tenderness (L), CVA tenderness (R) - Neurological Exam Neurological exam: Alert, CN II-XII Intact, Normal Gait, Oriented x3 - Psychiatric Exam Psychiatric exam: Normal Affect, Normal Mood - Skin Skin Exam: Warm Results - Vital Signs Recent Vital Signs: Last Vital Signs Temp 98.6 F 06/16/17 23:40 Pulse 102 H 06/16/17 23:40 Resp 20 06/16/17 23:40 BP 112/78 06/16/17 23:40 Pulse Ox 100 06/16/17 23:40 - Labs Result Diagrams: 06/17/17 02:06 06/17/17 02:06 Labs: Laboratory Results - last 24 hr 06/17/17 06/17/17 02:06 02:06 WBC 20.1 H RBC 2.19 L Hgb 6.6 L Hct 19.3 L MCV 88.1 MCH 30.1 MCHC 34.2 RDW 18.4 H Plt Count 248 MPV 8.9 Neut % (Auto) 69.5 Lymph % (Auto) 18.2 L Grady % (Auto) 7.9 Eos % (Auto) 3.3 Baso % (Auto) 1.1 Neut # (Auto) 13.9 H Lymph # (Auto) 3.7 Grady # (Auto) 1.6 H Eos # (Auto) 0.7 Baso # (Auto) 0.2 Differential Comment Sodium 143 Potassium 4.7 Chloride 111 H Carbon Dioxide 19 L Anion Gap 18 BUN 21 H Creatinine 1.0 Est GFR ( Amer) > 60 Est GFR (Non-Af Amer) > 60 Random Glucose 80 Calcium 8.0 L Total Bilirubin 1.6 H AST 97 H ALT 95 H D Alkaline Phosphatase 209 H D Total Protein 8.1 Albumin 3.5 Globulin 4.6 H Albumin/Globulin Ratio 0.8 L Assessment & Plan - Assessment and Plan (Free Text) Assessment: 36yo AA F w/ Sickle Cell Crisis Sickle Cell Crisis -Pain control with oxycodone; transition away from dilaudid IV in the hospital to shortage -folic acid -fluid resuscitation 150ml/hr NS -1unit PRBC; currently at 6.6 normally in 7's comfortably; no symptoms at present -f/u reticulocyte count Enlarged Liver w/ elevated LFT -f/u hep panel and HIV Proph -chemical DVT prophylaxis not indicated; will order SCD; OOB as tolerated -GI prophylaxis not indicated Discussed with Dr. Jojo Palm PGY2 Decision To Admit - Pt Status Changed To: Hospital Disposition Of: Observation - . Bed Request Type: Regular Admitting Physician: Patrick Uribe <Patrick Uribe - Last Filed: 06/17/17 06:06> Results - Vital Signs Recent Vital Signs: Last Vital Signs Temp 98.3 F 06/17/17 05:53 Pulse 100 H 06/17/17 05:53 Resp 16 06/17/17 05:53 BP 107/74 06/17/17 05:53 Pulse Ox 100 06/17/17 05:53 - Labs Result Diagrams: 06/17/17 02:06 06/17/17 02:06 Labs: Laboratory Results - last 24 hr 06/17/17 06/17/17 02:06 02:06 WBC 20.1 H RBC 2.19 L Hgb 6.6 L Hct 19.3 L MCV 88.1 MCH 30.1 MCHC 34.2 RDW 18.4 H Plt Count 248 MPV 8.9 Neut % (Auto) 69.5 Lymph % (Auto) 18.2 L Grady % (Auto) 7.9 Eos % (Auto) 3.3 Baso % (Auto) 1.1 Neut # (Auto) 13.9 H Lymph # (Auto) 3.7 Grady # (Auto) 1.6 H Eos # (Auto) 0.7 Baso # (Auto) 0.2 Differential Comment Sodium 143 Potassium 4.7 Chloride 111 H Carbon Dioxide 19 L Anion Gap 18 BUN 21 H Creatinine 1.0 Est GFR ( Amer) > 60 Est GFR (Non-Af Amer) > 60 Random Glucose 80 Calcium 8.0 L Total Bilirubin 1.6 H AST 97 H ALT 95 H D Alkaline Phosphatase 209 H D Total Protein 8.1 Albumin 3.5 Globulin 4.6 H Albumin/Globulin Ratio 0.8 L Assessment & Plan - Date & Time Date: 06/17/17 (I have seen and examined the patient. I agree with the findings and plan of care as documented by Dr. Palm. Patient with sickle cell anemia. Hemoglobin lower than usual. Transfuse 1 unit. Pain control. Monitor for acute changes.) Time: 06:05 Attending/Attestation - Attestation I have personally seen and examined this patient.: Yes I have fully participated in the care of the patient.: Yes I have reviewed all pertinent clinical information: Yes
--- NOTE | 2017-06-17 05:24 | C.PDOC ---
History Of Present Illness 36 year old female presents to the ER with a complaint of diffuse body aches, secondary to sickle cell, associated with mild fatigue. Patient had ureter stent placed yesterday. Patient reports she has had UTIs in the past, however, without any symptoms. Denies dysuria, fever, or vomiting. Chief Complaint (Nursing): Abdominal Pain History Per: Patient History/Exam Limitations: no limitations Onset/Duration Of Symptoms: Hrs Current Symptoms Are (Timing): Still Present Recent travel outside of the [place]: No Past Medical History Reviewed: Historical Data, Nursing Documentation, Vital Signs Vital Signs: Last Vital Signs Temp 98.6 F 06/16/17 23:40 Pulse 102 H 06/16/17 23:40 Resp 20 06/16/17 23:40 BP 112/78 06/16/17 23:40 Pulse Ox 100 06/17/17 05:29 - Medical History PMH: Anemia, Migraine, Sickle Cell Disease (sickle cell crisis 09/2017) Surgical History: Cholecystectomy (2003) - [facility] Procedures PACKED CELL TRANSFUSION (07/26/12) TETANUS TOXOID ADMINIST (11/14/12) TRANSFUSE NONAUT RED BLOOD CELLS IN PERIPH VEIN, PERC (04/08/17) Family History: States: Unknown Family Hx - Social History Hx Tobacco Use: No Hx Alcohol Use: No Hx Substance Use: No - Immunization History Hx Tetanus Toxoid Vaccination: Yes Hx Influenza Vaccination: Yes Hx Pneumococcal Vaccination: Yes Review Of Systems Constitutional: Positive for: Other (mild fatigue). Negative for: Fever, Chills Gastrointestinal: Negative for: Vomiting Genitourinary: Negative for: Dysuria Musculoskeletal: Positive for: Other (Diffuse body aches) Physical Exam - Physical Exam Appears: Non-toxic Skin: Normal Color, Warm, Dry Head: Atraumatic, Normacephalic Eye(s): bilateral: Normal Inspection Oral Mucosa: Moist Chest: Symmetrical, No Tenderness Cardiovascular: Rhythm Regular Respiratory: Normal Breath Sounds, No Rales, No Rhonchi, No Wheezing Gastrointestinal/Abdominal: Soft, No Tenderness Extremity: Tenderness (Diffuse x4) Neurological/Psych: Oriented x3, Normal Speech ED Course And Treatment - Laboratory Results Result Diagrams: 06/17/17 02:06 06/17/17 02:06 O2 Sat by Pulse Oximetry: 100 (room air) Pulse Ox Interpretation: Normal Progress Note: Pain medications given in the ED. Patient still with pain and with hemoglobin of 6.6, will admit under hospitalist service for transfusion and pain management. Disposition - Disposition Disposition Time: 02:40 Condition: STABLE - Clinical Impression Clinical Impression: Anemia, Sickle cell anemia with pain - Scribe Statement The provider has reviewed the documentation as recorded by the Scribe Bright Gordon All medical record entries made by the Alanaibstone were at my direction and personally dictated by me. I have reviewed the chart and agree that the record accurately reflects my personal performance of the history, physical exam, medical decision making, and the department course for this patient. I have also personally directed, reviewed, and agree with the discharge instructions and disposition.
[2017-06-17 06:06] LABS: INR 1.2; PROTHROMBIN TIME 13.6 SECONDS (9.7-12.2)
[2017-06-17 06:15] LABS: URINE BACTERIA OCC (<OCC); URINE BILIRUBIN NEGATIVE (NEGATIVE); URINE BLOOD 3+ (NEGATIVE); URINE CLARITY Hazy (Clear); URINE COLOR Yellow (YELLOW); URINE GLUCOSE (UA) NORMAL (Normal); URINE LEUKOCYTE ESTERASE 3+ Leu/uL (Negative); URINE PROTEIN 2+ mg/dL (NEGATIVE); URINE UROBILINOGEN NORMAL mg/dL (0.2-1.0)
[2017-06-17] MEDS: Sodium Chloride 0.9% 1,000 ML IV SCH ×3 (06:18→18:49)
[2017-06-17 06:22] LABS: BARBITURATES, UR NEGATIVE (NEGATIVE); BENZODIAZEPINES, UR NEGATIVE (NEGATIVE); OPIATES, UR NEGATIVE (NEGATIVE); PHENCYCLIDINE, UR NEGATIVE (NEGATIVE)
[2017-06-17 07:02] LABS: HEPATITIS B SURFACE AG Negative (NEGATIVE)
[2017-06-17 07:08] LABS: HEPATITIS A IGM NEGATIVE (NEGATIVE); HEPATITIS B CORE AB NEGATIVE (NEGATIVE)
[2017-06-17 07:20] LABS: HEPATITIS C ANTIBODY NEGATIVE (NEGATIVE)
[2017-06-17] MEDS ORDERED: HYDROmorphone 0.5 mg/0.5 ml ISec IVP PRN (11:27)
[2017-06-17] MEDS ORDERED: DiphenhydrAMINE 50 mg/ml Inj IVP SCH (12:00)
--- NOTE | 2017-06-17 13:03 | CP.PCM.PN ---
<Cindy Moffett - Last Filed: 06/17/17 18:29> Subjective - Date & Time of Evaluation Date of Evaluation: 06/17/17 Time of Evaluation: 07:00 - Subjective Subjective: PGY 2 medicine progress note for Dr. Alba Hernandez: Patient was seen and examined at bedside this morning. Patient appeared very comfortable resting in bed. She stated that she had 10/10 body pain all over. She was requesting more pain medication. She states that she is tolerating PO intake and having regular bowel movement. She reports having the left renal stent removed this week and will have the right one changed this upcoming Wednesday with Dr. Matias. Patient denies urinary symptoms/fever/chills at this time. Objective - Vital Signs/Intake and Output Vital Signs (last 24 hours): Temp Pulse Resp BP Pulse Ox 98.2 F 110 H 18 112/67 99 06/17/17 07:00 06/17/17 07:00 06/17/17 07:00 06/17/17 07:00 06/17/17 07:00 - Medications Medications: Current Medications Acetaminophen (Tylenol 325mg Tab) 650 mg PO Q6 PRN PRN Reason: Fever >100.4 F Bisacodyl (Dulcolax) 10 mg IA DAILY PRN PRN Reason: Constipation Diphenhydramine HCl (Benadryl) 25 mg IVP Q6 [facility] Last Admin: 06/17/17 11:42 Dose: 25 mg Folic Acid (Folic Acid) 2 mg PO DAILY [facility] Last Admin: 06/17/17 09:44 Dose: 2 mg Hydromorphone HCl (Dilaudid) 2 mg PO Q4 PRN PRN Reason: Pain, severe (8-10) Last Admin: 06/17/17 11:43 Dose: 2 mg Sodium Chloride (Sodium Chloride 0.9%) 1,000 mls @ 150 mls/hr IV .Q6H40M [facility] Last Admin: 06/17/17 11:46 Dose: 150 mls/hr Ondansetron HCl (Zofran Inj) 4 mg IVP Q6 PRN PRN Reason: Nausea/Vomiting - Labs Labs: 06/17/17 02:06 06/17/17 02:06 PT 13.6 SECONDS (9.7-12.2) H 06/17/17 05:58 INR 1.2 06/17/17 05:58 APTT 37 SECONDS (21-34) H 06/17/17 05:58 - Constitutional Appears: Non-toxic, No Acute Distress - Head Exam Head Exam: ATRAUMATIC, NORMAL INSPECTION - Eye Exam Eye Exam: EOMI Pupil Exam: NORMAL ACCOMODATION - ENT Exam ENT Exam: Mucous Membranes Moist - Respiratory Exam Respiratory Exam: Clear to Ausculation Bilateral, NORMAL BREATHING PATTERN. absent: Respiratory Distress - Cardiovascular Exam Cardiovascular Exam: REGULAR RHYTHM, +S1, +S2 Additional comments: port for access on her right upper chest - GI/Abdominal Exam GI & Abdominal Exam: Soft, Normal Bowel Sounds. absent: Distended, Firm, Guarding, Tenderness - Extremities Exam Extremities Exam: Normal Inspection - Back Exam Back Exam: NORMAL INSPECTION - Neurological Exam Neurological Exam: Alert, Awake, CN II-XII Intact, Oriented x3 - Psychiatric Exam Psychiatric exam: Normal Affect, Normal Mood Assessment and Plan - Assessment and Plan (Free Text) Assessment: Patient is now under the care of Dr. Alba Hernandez. Patient is a regular patient of Dr. Hernandez. Assessment: 36yo AA F w/ Sickle Cell Crisis Sickle Cell Crisis -Pain control with PO dilaudid -folic acid -fluid resuscitation 150ml/hr NS -Retic count 2.5 - Dr. Leyva consulted help appreciated - Zofran prn Hx frequest UTIs - f/u urine culture - UA is abnormal but unchanged from other Ua - patient is asymptomatic and afebrile - Dr. Jones consulted, help appreciated - will wait on urine culture before starting antibiotics Renal stents Dr. Matias, urology, help appreciated Transaminitis -hepatitis and HIV negative 2.5 Proph -chemical DVT prophylaxis not indicated; will order SCD; OOB as tolerated -GI prophylaxis not indicated -Benadryl prn All management per Dr. Alba Hernandez. <Rosalina Hernandez - Last Filed: 06/25/17 11:34> Objective - Vital Signs/Intake and Output Vital Signs (last 24 hours): Temp Pulse Resp BP Pulse Ox 98.0 F 84 20 97/65 L 99 06/25/17 07:57 06/25/17 07:57 06/25/17 07:57 06/25/17 07:57 06/25/17 07:57 - Medications Medications: Current Medications Acetaminophen (Tylenol 325mg Tab) 650 mg PO Q6 PRN PRN Reason: Fever >100.4 F Bisacodyl (Dulcolax) 10 mg IA DAILY PRN PRN Reason: Constipation Diphenhydramine HCl (Benadryl) 25 mg IVP Q3 PRN PRN Reason: Itching / Pruritus Last Admin: 06/25/17 10:21 Dose: 25 mg Folic Acid (Folic Acid) 2 mg PO DAILY [facility] Last Admin: 06/25/17 10:20 Dose: 2 mg Hydromorphone HCl (Dilaudid) 4 mg PO Q3H PRN PRN Reason: Pain, severe (8-10) Last Admin: 06/25/17 10:21 Dose: 4 mg Ondansetron HCl (Zofran Inj) 4 mg IVP Q6 PRN PRN Reason: Nausea/Vomiting - Labs Labs: 06/25/17 05:58 06/25/17 05:58 PT 13.6 SECONDS (9.7-12.2) H 06/17/17 05:58 INR 1.2 06/17/17 05:58 APTT 37 SECONDS (21-34) H 06/17/17 05:58 Attending/Attestation - Attestation I have personally seen and examined this patient.: Yes I have fully participated in the care of the patient.: Yes I have reviewed all pertinent clinical information, including history, physical exam and plan: Yes Notes (Text): case seen and d.w staff and resident, concurred with finding and management..
[2017-06-17] MEDS: DiphenhydrAMINE 50 mg/ml Inj IVP PRN ×3 (16:06→22:24)
--- NOTE | 2017-06-17 17:03 | CP.PCM.CON ---
History of Present Illness - History of Present Illness History of Present Illness: 36 year old female with a history of sickle cell anemia, admitted with sickle cell pain crisis. The patient reports to increasing diffuse bone pain which did not improve with her oral pain meds after a ureteral stent exchange. She denies fevers and chills. She does report to progressive fatigue but no shortness of breath. She denies abnormal bleeding and bruising. Past medical history: Sickle cell anemia Past surgical history: Portacat Family history: Parents have the trait. Social history: Denies tobacco, alcohol, and illicit drug use. Allergies: Droperidol, tramadol Review of systems: All remaining review of systems including HEENT, cardiovascular, respiratory, gastrointestinal, genitourinary, musculoskeletal, dermatologic, neurologic, and psychiatric are negative unless mentioned in the HPI. Past Patient History - Infectious Disease Hx of Infectious Diseases: None - Past Medical History & Family History Past Medical History?: Yes - Past Social History Smoking Status: Never Smoked - CARDIAC Hx Cardiac Disorders: No - PULMONARY Hx Respiratory Disorders: No - NEUROLOGICAL Hx Neurological Disorder: Yes Hx Migraine: Yes - HEENT Hx HEENT Problems: No - RENAL Hx Chronic Kidney Disease: No - ENDOCRINE/METABOLIC Hx Endocrine Disorders: No - HEMATOLOGICAL/ONCOLOGICAL Hx Blood Disorders: Yes Hx Anemia: Yes Hx Blood Transfusions: Yes Hx Sickle Cell Disease: Yes (sickle cell crisis 09/2017) - INTEGUMENTARY Hx Dermatological Problems: No - MUSCULOSKELETAL/RHEUMATOLOGICAL Hx Musculoskeletal Disorders: No Hx Falls: No - GASTROINTESTINAL Hx Gastrointestinal Disorders: No - GENITOURINARY/GYNECOLOGICAL Hx Genitourinary Disorders: Yes Hx Urinary Tract Infection: Yes Other/Comment: ureter stent 06/16/17 - PSYCHIATRIC Hx Psychophysiologic Disorder: No Hx Substance Use: No - SURGICAL HISTORY Hx Surgeries: Yes Hx Cholecystectomy: Yes (2003) - ANESTHESIA Hx Anesthesia: Yes Hx Anesthesia Reactions: No Hx Malignant Hyperthermia: No Has any member of the family had a problem w/ anesthesia?: No Meds Allergies/Adverse Reactions: Allergies Allergy/AdvReac Type Severity Reaction Status Date / Time droperidol Allergy Verified 05/02/17 17:54 tramadol Allergy Verified 05/02/17 17:54 inapsine Allergy RASH Uncoded 05/02/17 17:54 - Medications Medications: Current Medications Acetaminophen (Tylenol 325mg Tab) 650 mg PO Q6 PRN PRN Reason: Fever >100.4 F Bisacodyl (Dulcolax) 10 mg PA DAILY PRN PRN Reason: Constipation Diphenhydramine HCl (Benadryl) 25 mg IVP Q3 PRN PRN Reason: Itching / Pruritus Last Admin: 06/17/17 16:06 Dose: 25 mg Folic Acid (Folic Acid) 2 mg PO DAILY [facility] Last Admin: 06/17/17 09:44 Dose: 2 mg Hydromorphone HCl (Dilaudid) 4 mg PO Q4 PRN PRN Reason: Pain, severe (8-10) Last Admin: 06/17/17 16:06 Dose: 4 mg Sodium Chloride (Sodium Chloride 0.9%) 1,000 mls @ 150 mls/hr IV .Q6H40M [facility] Last Admin: 06/17/17 11:46 Dose: 150 mls/hr Ondansetron HCl (Zofran Inj) 4 mg IVP Q6 PRN PRN Reason: Nausea/Vomiting Physical Exam - Head Exam Head Exam: ATRAUMATIC - Eye Exam Eye Exam: Normal appearance - ENT Exam ENT Exam: Mucous Membranes Dry - Respiratory Exam Respiratory Exam: NORMAL BREATHING PATTERN - Cardiovascular Exam Cardiovascular Exam: +S1, +S2 - GI/Abdominal Exam GI & Abdominal Exam: Normal Bowel Sounds - Extremities Exam Extremities exam: Positive for: normal inspection - Neurological Exam Neurological exam: Oriented x3 - Psychiatric Exam Psychiatric exam: Normal Affect, Normal Mood - Skin Skin Exam: Warm Results - Vital Signs Recent Vital Signs: Last Vital Signs Temp 98.3 F 06/17/17 15:51 Pulse 96 H 06/17/17 15:51 Resp 20 06/17/17 15:51 BP 101/67 06/17/17 15:51 Pulse Ox 100 06/17/17 15:51 - Labs Result Diagrams: 06/18/17 08:02 06/18/17 08:02 Labs: Laboratory Results - last 24 hr 06/17/17 06/17/17 06/17/17 02:06 02:06 05:54 WBC 20.1 H RBC 2.19 L Hgb 6.6 L Hct 19.3 L MCV 88.1 MCH 30.1 MCHC 34.2 RDW 18.4 H Plt Count 248 MPV 8.9 Neut % (Auto) 69.5 Lymph % (Auto) 18.2 L Kimble % (Auto) 7.9 Eos % (Auto) 3.3 Baso % (Auto) 1.1 Neut # (Auto) 13.9 H Lymph # (Auto) 3.7 Kimble # (Auto) 1.6 H Eos # (Auto) 0.7 Baso # (Auto) 0.2 Differential Comment Retic Count 2.5 H PT INR APTT Sodium 143 Potassium 4.7 Chloride 111 H Carbon Dioxide 19 L Anion Gap 18 BUN 21 H Creatinine 1.0 Est GFR ( Amer) > 60 Est GFR (Non-Af Amer) > 60 Random Glucose 80 Calcium 8.0 L Total Bilirubin 1.6 H AST 97 H ALT 95 H D Alkaline Phosphatase 209 H D Total Protein 8.1 Albumin 3.5 Globulin 4.6 H Albumin/Globulin Ratio 0.8 L Urine Color Urine Clarity Urine pH Ur Specific Kane Urine Protein Urine Glucose (UA) Urine Ketones Urine Blood Urine Nitrate Urine Bilirubin Urine Urobilinogen Ur Leukocyte Esterase Urine WBC (Auto) Urine RBC (Auto) Urine Bacteria Urine Opiates Screen Urine Methadone Screen Ur Barbiturates Screen Ur Phencyclidine Scrn Ur Amphetamines Screen U Benzodiazepines Scrn U Oth Cocaine Metabols U Cannabinoids Screen Hepatitis A IgM Ab Hep Bs Antigen Hep B Core IgM Ab Hepatitis C Antibody HIV 1&2 Antibody Screen Blood Type O POSITIVE Antibody Screen Negative 06/17/17 06/17/17 06/17/17 05:58 05:58 05:58 WBC RBC Hgb Hct MCV MCH MCHC RDW Plt Count MPV Neut % (Auto) Lymph % (Auto) Kimble % (Auto) Eos % (Auto) Baso % (Auto) Neut # (Auto) Lymph # (Auto) Kimble # (Auto) Eos # (Auto) Baso # (Auto) Differential Comment Retic Count PT 13.6 H INR 1.2 APTT 37 H Sodium Potassium Chloride Carbon Dioxide Anion Gap BUN Creatinine Est GFR ( Amer) Est GFR (Non-Af Amer) Random Glucose Calcium Total Bilirubin AST ALT Alkaline Phosphatase Total Protein Albumin Globulin Albumin/Globulin Ratio Urine Color Urine Clarity Urine pH Ur Specific Kane Urine Protein Urine Glucose (UA) Urine Ketones Urine Blood Urine Nitrate Urine Bilirubin Urine Urobilinogen Ur Leukocyte Esterase Urine WBC (Auto) Urine RBC (Auto) Urine Bacteria Urine Opiates Screen Urine Methadone Screen Ur Barbiturates Screen Ur Phencyclidine Scrn Ur Amphetamines Screen U Benzodiazepines Scrn U Oth Cocaine Metabols U Cannabinoids Screen Hepatitis A IgM Ab Negative Hep Bs Antigen Negative Hep B Core IgM Ab Negative Hepatitis C Antibody Negative HIV 1&2 Antibody Screen Negative Blood Type Antibody Screen 06/17/17 06/17/17 05:58 05:58 WBC RBC Hgb Hct MCV MCH MCHC RDW Plt Count MPV Neut % (Auto) Lymph % (Auto) Kimble % (Auto) Eos % (Auto) Baso % (Auto) Neut # (Auto) Lymph # (Auto) Kimble # (Auto) Eos # (Auto) Baso # (Auto) Differential Comment Retic Count PT INR APTT Sodium Potassium Chloride Carbon Dioxide Anion Gap BUN Creatinine Est GFR ( Amer) Est GFR (Non-Af Amer) Random Glucose Calcium Total Bilirubin AST ALT Alkaline Phosphatase Total Protein Albumin Globulin Albumin/Globulin Ratio Urine Color Yellow Urine Clarity Hazy Urine pH 6.0 Ur Specific Kane 1.010 Urine Protein 2+ H Urine Glucose (UA) Normal Urine Ketones Negative Urine Blood 3+ H Urine Nitrate Negative Urine Bilirubin Negative Urine Urobilinogen Normal Ur Leukocyte Esterase 3+ H Urine WBC (Auto) 1295 H Urine RBC (Auto) 351 H Urine Bacteria Occ H Urine Opiates Screen Negative Urine Methadone Screen Negative Ur Barbiturates Screen Negative Ur Phencyclidine Scrn Negative Ur Amphetamines Screen Negative U Benzodiazepines Scrn Negative U Oth Cocaine Metabols Negative U Cannabinoids Screen Negative Hepatitis A IgM Ab Hep Bs Antigen Hep B Core IgM Ab Hepatitis C Antibody HIV 1&2 Antibody Screen Blood Type Antibody Screen Assessment & Plan (1) Sickle cell pain crisis Assessment and Plan: IV fluids, pain meds, folic acid, 02 via NC no current transfusion indication Status: Acute (2) Iron overload due to repeated red blood cell transfusions Assessment and Plan: minimize blood transfusions outpatient chelation Status: Acute (3) Leukocytosis Assessment and Plan: may be reactive to acute sickle cell crisis. Status: Acute (4) Sickle cell anemia Assessment and Plan: folic acid Thank you for this interesting consult. Status: Acute
--- NOTE | 2017-06-17 19:26 | CP.PCM.CON ---
History of Present Illness - History of Present Illness History of Present Illness: INFECTIOUS DISEASE CONSULT; HPI 36-year-old female with history of sickle cell disease and multiple sickle cell crisis who was recently hospitalized and discharged on 05/22/17 and who recently had an outpatient urological procedure including stent change and replacement on 06/16/15. Patient has history of neurogenic bladder and history of bilateral ureteral stents insertion since January 2016. A recent ultrasound of bladder showed right and left ureteral stent with moderate bilateral hydronephrosis. Patient states she was told by urologist that she will have her stent changed next week. She denies any pain on urination or any hematuria. Patient self catheterizes herself 2 or 3 times a day. 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 On admission patient has leukocytosis but denies any symptoms. Infectious disease consultation requested by PMD for leukocytosis and recurrent UTI. LMP APRIL 2017.,LATELY PERIODS ARE IRREGULAR,BUT LAST FOR 5 DAYS.PATIENT IS SINGLE AND LIVES BY HERSELF. PMH: Anemia, Migraine, Sickle Cell Disease Surgical History: Cholecystectomy (2003), B/L INTERNAL STENTS FOR HYDRONEPHROSIS IN 2016. Denies: Pacemaker Allergy; droperidol, tramadol. Social History Hx Tobacco Use: No Hx Alcohol Use: No Hx Substance Use: No - Immunization History Hx Tetanus Toxoid Vaccination: Yes Hx Influenza Vaccination: Yes Hx Pneumococcal Vaccination: Yes Review of Systems - Constitutional Constitutional: As Per HPI. absent: Chills, Fever - EENT Nose/Mouth/Throat: absent: Mouth Lesions - Cardiovascular Cardiovascular: absent: Chest Pain, Dyspnea - Respiratory Respiratory: absent: Cough, Hemoptysis - Gastrointestinal Gastrointestinal: absent: Diarrhea, Nausea, Vomiting - Genitourinary Genitourinary: absent: Dysuria, Freq UTI, Hx /Renal Surgery - Menstruation Menstruation: Menses Variable - Neurological Neurological: absent: Headaches - Hematologic/Lymphatic Hematologic: As Per HPI Past Patient History - Infectious Disease Hx of Infectious Diseases: None - Past Medical History & Family History Past Medical History?: Yes - Past Social History Smoking Status: Never Smoked - CARDIAC Hx Cardiac Disorders: No - PULMONARY Hx Respiratory Disorders: No - NEUROLOGICAL Hx Neurological Disorder: Yes Hx Migraine: Yes - HEENT Hx HEENT Problems: No - RENAL Hx Chronic Kidney Disease: No - ENDOCRINE/METABOLIC Hx Endocrine Disorders: No - HEMATOLOGICAL/ONCOLOGICAL Hx Blood Disorders: Yes Hx Anemia: Yes Hx Blood Transfusions: Yes Hx Sickle Cell Disease: Yes (sickle cell crisis 09/2017) - INTEGUMENTARY Hx Dermatological Problems: No - MUSCULOSKELETAL/RHEUMATOLOGICAL Hx Musculoskeletal Disorders: No Hx Falls: No - GASTROINTESTINAL Hx Gastrointestinal Disorders: No - GENITOURINARY/GYNECOLOGICAL Hx Genitourinary Disorders: Yes Hx Urinary Tract Infection: Yes Other/Comment: ureter stent 06/16/17 - PSYCHIATRIC Hx Psychophysiologic Disorder: No Hx Substance Use: No - SURGICAL HISTORY Hx Surgeries: Yes Hx Cholecystectomy: Yes (2003) - ANESTHESIA Hx Anesthesia: Yes Hx Anesthesia Reactions: No Hx Malignant Hyperthermia: No Has any member of the family had a problem w/ anesthesia?: No Meds Allergies/Adverse Reactions: Allergies Allergy/AdvReac Type Severity Reaction Status Date / Time droperidol Allergy Verified 05/02/17 17:54 tramadol Allergy Verified 05/02/17 17:54 inapsine Allergy RASH Uncoded 05/02/17 17:54 - Medications Medications: Current Medications Acetaminophen (Tylenol 325mg Tab) 650 mg PO Q6 PRN PRN Reason: Fever >100.4 F Bisacodyl (Dulcolax) 10 mg [place] DAILY PRN PRN Reason: Constipation Diphenhydramine HCl (Benadryl) 25 mg IVP Q3 PRN PRN Reason: Itching / Pruritus Last Admin: 06/17/17 16:06 Dose: 25 mg Folic Acid (Folic Acid) 2 mg PO DAILY [facility] Last Admin: 06/17/17 09:44 Dose: 2 mg Hydromorphone HCl (Dilaudid) 4 mg PO Q4 PRN PRN Reason: Pain, severe (8-10) Last Admin: 06/17/17 16:06 Dose: 4 mg Sodium Chloride (Sodium Chloride 0.9%) 1,000 mls @ 150 mls/hr IV .Q6H40M [facility] Last Admin: 06/17/17 18:49 Dose: 150 mls/hr Ondansetron HCl (Zofran Inj) 4 mg IVP Q6 PRN PRN Reason: Nausea/Vomiting Physical Exam - Constitutional Appears: Non-toxic - Head Exam Head Exam: NORMAL INSPECTION - Eye Exam Eye Exam: EOMI, PERRL - ENT Exam ENT Exam: Normal Oropharynx - Neck Exam Neck exam: Positive for: Normal Inspection - Respiratory Exam Respiratory Exam: Clear to Auscultation Bilateral - Cardiovascular Exam Cardiovascular Exam: REGULAR RHYTHM, +S1, +S2 - GI/Abdominal Exam GI & Abdominal Exam: Normal Bowel Sounds, Soft. absent: Guarding - Extremities Exam Extremities exam: Negative for: calf tenderness, pedal edema - Back Exam Back exam: absent: CVA tenderness (L), CVA tenderness (R) - Neurological Exam Neurological exam: Alert, CN II-XII Intact, Oriented x3, Reflexes Normal - Psychiatric Exam Psychiatric exam: Normal Mood - Skin Skin Exam: Pallor, Warm Results - Vital Signs Recent Vital Signs: Last Vital Signs Temp 98.3 F 06/17/17 15:51 Pulse 96 H 06/17/17 15:51 Resp 20 06/17/17 15:51 BP 101/67 06/17/17 15:51 Pulse Ox 100 06/17/17 15:51 - Labs Result Diagrams: 06/17/17 02:06 06/17/17 02:06 Labs: Laboratory Results - last 24 hr 06/17/17 06/17/17 06/17/17 02:06 02:06 05:54 WBC 20.1 H RBC 2.19 L Hgb 6.6 L Hct 19.3 L MCV 88.1 MCH 30.1 MCHC 34.2 RDW 18.4 H Plt Count 248 MPV 8.9 Neut % (Auto) 69.5 Lymph % (Auto) 18.2 L Holmes % (Auto) 7.9 Eos % (Auto) 3.3 Baso % (Auto) 1.1 Neut # (Auto) 13.9 H Lymph # (Auto) 3.7 Holmes # (Auto) 1.6 H Eos # (Auto) 0.7 Baso # (Auto) 0.2 Differential Comment Retic Count 2.5 H PT INR APTT Sodium 143 Potassium 4.7 Chloride 111 H Carbon Dioxide 19 L Anion Gap 18 BUN 21 H Creatinine 1.0 Est GFR ( Amer) > 60 Est GFR (Non-Af Amer) > 60 Random Glucose 80 Calcium 8.0 L Total Bilirubin 1.6 H AST 97 H ALT 95 H D Alkaline Phosphatase 209 H D Total Protein 8.1 Albumin 3.5 Globulin 4.6 H Albumin/Globulin Ratio 0.8 L Urine Color Urine Clarity Urine pH Ur Specific [place] Urine Protein Urine Glucose (UA) Urine Ketones Urine Blood Urine Nitrate Urine Bilirubin Urine Urobilinogen Ur Leukocyte Esterase Urine WBC (Auto) Urine RBC (Auto) Urine Bacteria Urine Opiates Screen Urine Methadone Screen Ur Barbiturates Screen Ur Phencyclidine Scrn Ur Amphetamines Screen U Benzodiazepines Scrn U Oth Cocaine Metabols U Cannabinoids Screen Hepatitis A IgM Ab Hep Bs Antigen Hep B Core IgM Ab Hepatitis C Antibody HIV 1&2 Antibody Screen Blood Type O POSITIVE Antibody Screen Negative 06/17/17 06/17/17 06/17/17 05:58 05:58 05:58 WBC RBC Hgb Hct MCV MCH MCHC RDW Plt Count MPV Neut % (Auto) Lymph % (Auto) Holmes % (Auto) Eos % (Auto) Baso % (Auto) Neut # (Auto) Lymph # (Auto) Holmes # (Auto) Eos # (Auto) Baso # (Auto) Differential Comment Retic Count PT 13.6 H INR 1.2 APTT 37 H Sodium Potassium Chloride Carbon Dioxide Anion Gap BUN Creatinine Est GFR ( Amer) Est GFR (Non-Af Amer) Random Glucose Calcium Total Bilirubin AST ALT Alkaline Phosphatase Total Protein Albumin Globulin Albumin/Globulin Ratio Urine Color Urine Clarity Urine pH Ur Specific [place] Urine Protein Urine Glucose (UA) Urine Ketones Urine Blood Urine Nitrate Urine Bilirubin Urine Urobilinogen Ur Leukocyte Esterase Urine WBC (Auto) Urine RBC (Auto) Urine Bacteria Urine Opiates Screen Urine Methadone Screen Ur Barbiturates Screen Ur Phencyclidine Scrn Ur Amphetamines Screen U Benzodiazepines Scrn U Oth Cocaine Metabols U Cannabinoids Screen Hepatitis A IgM Ab Negative Hep Bs Antigen Negative Hep B Core IgM Ab Negative Hepatitis C Antibody Negative HIV 1&2 Antibody Screen Negative Blood Type Antibody Screen 06/17/17 06/17/17 05:58 05:58 WBC RBC Hgb Hct MCV MCH MCHC RDW Plt Count MPV Neut % (Auto) Lymph % (Auto) [place] % (Auto) Eos % (Auto) Baso % (Auto) Neut # (Auto) Lymph # (Auto) Holmes # (Auto) Eos # (Auto) Baso # (Auto) Differential Comment Retic Count PT INR APTT Sodium Potassium Chloride Carbon Dioxide Anion Gap BUN Creatinine Est GFR ( Amer) Est GFR (Non-Af Amer) Random Glucose Calcium Total Bilirubin AST ALT Alkaline Phosphatase Total Protein Albumin Globulin Albumin/Globulin Ratio Urine Color Yellow Urine Clarity Hazy Urine pH 6.0 Ur Specific [place] 1.010 Urine Protein 2+ H Urine Glucose (UA) Normal Urine Ketones Negative Urine Blood 3+ H Urine Nitrate Negative Urine Bilirubin Negative Urine Urobilinogen Normal Ur Leukocyte Esterase 3+ H Urine WBC (Auto) 1295 H Urine RBC (Auto) 351 H Urine Bacteria Occ H Urine Opiates Screen Negative Urine Methadone Screen Negative Ur Barbiturates Screen Negative Ur Phencyclidine Scrn Negative Ur Amphetamines Screen Negative U Benzodiazepines Scrn Negative U Oth Cocaine Metabols Negative U Cannabinoids Screen Negative Hepatitis A IgM Ab Hep Bs Antigen Hep B Core IgM Ab Hepatitis C Antibody HIV 1&2 Antibody Screen Blood Type Antibody Screen Assessment & Plan (1) Sickle cell anemia Assessment and Plan: H/H 6.6/19.2 ? BLOOD TRANSFUSION. Status: Acute (2) Leukocytosis Assessment and Plan: patient has leukocytosis-most likely reactive secondary to sickle cell crisis. Case discussed with the resident. Continue IV fluids, folic acid, analgesics as needed when necessary. Patient has neurogenic bladder and recently had the left stent removed/and replaced on 06/15/[address] Matias. Patient is colonized gram-positive and gram-negative organisms. Will observe off antibiotics as she may develop resistant bacterial infections.. She already has VRE/E.COLI IN URINE. fOLLOW-UP FEVER CURVE. Status: Acute (3) Anemia Assessment and Plan: h&h LOW. hEMATOLOGY ON BOARD. Status: Acute (4) Neurogenic bladder Status: Acute (5) Bilateral hydronephrosis Assessment and Plan: S/P LEFT URETERAL STENT REMOVED AND REPLACED ON 06/15/17. RIGHT URETERAL STENTS WILL BE REPLACED NEXT WEEK ON WEDNESDAY PER . WILL GIVE PREOP. ANTIBIOTICS DEPENDING ON CULTURES. Status: Acute
[2017-06-18] MEDS: Sodium Chloride 0.9% 1,000 ML IV SCH ×5 (01:27→14:52)
[2017-06-18] MEDS: DiphenhydrAMINE 50 mg/ml Inj IVP PRN ×7 (01:28→22:05)
[2017-06-18 08:15] LABS: BASO # 0.3 K/uL (0.0-0.2); BASO % 1.2 % (0.0-2.0); EOS # 0.9 K/uL (0.0-0.7); EOS % 3.9 % (0.0-4.0); LYMPH # 4.5 K/uL (1.0-4.3); LYMPH % 18.5 % (20.0-40.0); MEAN CELL VOLUME 88.8 fL (81.0-99.0); MEAN CORPUSCULAR HEMOGLOBIN 29.7 pg (27.0-31.0); MEAN CORPUSCULAR HGB CONC 33.4 g/dL (33.0-37.0); MEAN PLATELET VOLUME 9.6 fL (7.2-11.7); MONO # 2.1 K/uL (0.0-0.8); MONO % 8.5 % (0.0-10.0); NEUT # 16.5 K/uL (1.8-7.0); NEUT % 67.9 % (50.0-75.0); NRBC % 0.1 % (0.0-2.0); RBC 2.04 Mil/uL (3.80-5.20); RED CELL DISTRIBUTION WIDTH 18.7 % (11.5-14.5); WHITE BLOOD COUNT 24.3 K/uL (4.8-10.8)
[2017-06-18 08:29] LABS: ALB/GLOB RATIO 0.7 (1.0-2.1); ALBUMIN 3.2 g/dL (3.5-5.0); ALT/SGPT 93 U/L (9-52); AST/SGOT 112 U/L (14-36); BLOOD UREA NITROGEN 20 mg/dL (7-17); CALCIUM 7.8 mg/dl (8.6-10.4); GFR AFRICAN-AMERICAN > 60; GFR NON-AFRICAN AMERICAN 50
--- NOTE | 2017-06-18 11:57 | CP.PCM.PN ---
<Melanie Zimmer - Last Filed: 06/18/17 14:59> Subjective - Date & Time of Evaluation Date of Evaluation: 06/18/17 Time of Evaluation: 11:52 - Subjective Subjective: PGY2 progress note for Dr. Hernandez Pt seen and examined at bedside. No acute events overnight. Pt continues to complain of diffuse pain in her body. Specifically she complains of abd pain, LE pain B/L and back pain. Patient denies having any CP, SOB, N/V/D/C, F/C. she states that she is currently on her period with slightly heavy blood flow. Objective - Vital Signs/Intake and Output Vital Signs (last 24 hours): Temp Pulse Resp BP Pulse Ox 98.0 F 93 H 18 103/69 97 06/18/17 07:42 06/18/17 10:49 06/18/17 07:42 06/18/17 10:49 06/18/17 07:42 - Medications Medications: Current Medications Acetaminophen (Tylenol 325mg Tab) 650 mg PO Q6 PRN PRN Reason: Fever >100.4 F Bisacodyl (Dulcolax) 10 mg [place] DAILY PRN PRN Reason: Constipation Diphenhydramine HCl (Benadryl) 25 mg IVP Q3 PRN PRN Reason: Itching / Pruritus Last Admin: 06/18/17 10:52 Dose: 25 mg Folic Acid (Folic Acid) 2 mg PO DAILY [facility] Last Admin: 06/18/17 10:36 Dose: 2 mg Hydromorphone HCl (Dilaudid) 4 mg PO Q3H PRN PRN Reason: Pain, severe (8-10) Last Admin: 06/18/17 10:51 Dose: 4 mg Sodium Chloride (Sodium Chloride 0.9%) 1,000 mls @ 150 mls/hr IV .Q6H40M [facility] Last Admin: 06/18/17 08:38 Dose: Not Given Ondansetron HCl (Zofran Inj) 4 mg IVP Q6 PRN PRN Reason: Nausea/Vomiting - Labs Labs: 06/18/17 08:02 06/18/17 08:02 PT 13.6 SECONDS (9.7-12.2) H 06/17/17 05:58 INR 1.2 06/17/17 05:58 APTT 37 SECONDS (21-34) H 06/17/17 05:58 - Constitutional Appears: Non-toxic, No Acute Distress - Head Exam Head Exam: ATRAUMATIC - ENT Exam ENT Exam: Mucous Membranes Moist - Respiratory Exam Respiratory Exam: Clear to Ausculation Bilateral. absent: Accessory Muscle Use , Rales, Rhonchi, Wheezes, Respiratory Distress - Cardiovascular Exam Cardiovascular Exam: REGULAR RHYTHM, +S1, +S2. absent: Gallop, Rubs, Murmur - GI/Abdominal Exam GI & Abdominal Exam: Soft, Normal Bowel Sounds. absent: Distended, Firm, Guarding, Rigid, Tenderness, Organomegaly - Extremities Exam Extremities Exam: absent: Pedal Edema, Tenderness - Neurological Exam Neurological Exam: Alert, Awake, Oriented x3 - Psychiatric Exam Psychiatric exam: Normal Affect, Normal Mood - Skin Skin Exam: Dry, Intact, Normal Color, Warm Assessment and Plan - Assessment and Plan (Free Text) Assessment: Sickle Cell Crisis - Hgb noted to be 6.0 (6.6 yesterday) this morning. Will continue to monitor. Transfusion if Hgb below 5.0 per Heme/onc recs. - Pain control with PO dilaudid - folic acid - fluid resuscitation 150ml/hr NS - Retic count 2.5 on admission - Dr. Leyva consulted help appreciated - Zofran prn Hx frequest UTIs - f/u urine culture - UA is abnormal but unchanged from other Ua - patient is asymptomatic and afebrile - Dr. Jones consulted, help appreciated - will wait on urine culture before starting antibiotics Renal stents -Dr. Matias, urology, help appreciated Transaminitis -hepatitis and HIV negative 2.5 Neurogenic bladder - Straight cath prn Proph -chemical DVT prophylaxis not indicated; will order SCD; OOB as tolerated -GI prophylaxis not indicated -Benadryl prn All management per Dr. Alba Hernandez. <Rosalina Hernandez - Last Filed: 06/25/17 11:35> Objective - Vital Signs/Intake and Output Vital Signs (last 24 hours): Temp Pulse Resp BP Pulse Ox 98.0 F 84 20 97/65 L 99 06/25/17 07:57 06/25/17 07:57 06/25/17 07:57 06/25/17 07:57 06/25/17 07:57 - Medications Medications: Current Medications Acetaminophen (Tylenol 325mg Tab) 650 mg PO Q6 PRN PRN Reason: Fever >100.4 F Bisacodyl (Dulcolax) 10 mg [place] DAILY PRN PRN Reason: Constipation Diphenhydramine HCl (Benadryl) 25 mg IVP Q3 PRN PRN Reason: Itching / Pruritus Last Admin: 06/25/17 10:21 Dose: 25 mg Folic Acid (Folic Acid) 2 mg PO DAILY [facility] Last Admin: 06/25/17 10:20 Dose: 2 mg Hydromorphone HCl (Dilaudid) 4 mg PO Q3H PRN PRN Reason: Pain, severe (8-10) Last Admin: 06/25/17 10:21 Dose: 4 mg Ondansetron HCl (Zofran Inj) 4 mg IVP Q6 PRN PRN Reason: Nausea/Vomiting - Labs Labs: 06/25/17 05:58 06/25/17 05:58 PT 13.6 SECONDS (9.7-12.2) H 06/17/17 05:58 INR 1.2 06/17/17 05:58 APTT 37 SECONDS (21-34) H 06/17/17 05:58 Attending/Attestation - Attestation I have personally seen and examined this patient.: Yes I have fully participated in the care of the patient.: Yes I have reviewed all pertinent clinical information, including history, physical exam and plan: Yes Notes (Text): case seen and d.w staff and resident, concurred with finding and management..
--- NOTE | 2017-06-18 13:03 | CP.PCM.PN ---
Subjective - Date & Time of Evaluation Date of Evaluation: 06/18/17 Time of Evaluation: 12:30 - Subjective Subjective: Has some pain. Objective - Vital Signs/Intake and Output Vital Signs (last 24 hours): Temp Pulse Resp BP Pulse Ox 98.0 F 93 H 18 103/69 97 06/18/17 07:42 06/18/17 10:49 06/18/17 07:42 06/18/17 10:49 06/18/17 07:42 - Medications Medications: Current Medications Acetaminophen (Tylenol 325mg Tab) 650 mg PO Q6 PRN PRN Reason: Fever >100.4 F Bisacodyl (Dulcolax) 10 mg [place] DAILY PRN PRN Reason: Constipation Diphenhydramine HCl (Benadryl) 25 mg IVP Q3 PRN PRN Reason: Itching / Pruritus Last Admin: 06/18/17 10:52 Dose: 25 mg Folic Acid (Folic Acid) 2 mg PO DAILY [facility] Last Admin: 06/18/17 10:36 Dose: 2 mg Hydromorphone HCl (Dilaudid) 4 mg PO Q3H PRN PRN Reason: Pain, severe (8-10) Last Admin: 06/18/17 10:51 Dose: 4 mg Sodium Chloride (Sodium Chloride 0.9%) 1,000 mls @ 150 mls/hr IV .Q6H40M [facility] Last Admin: 06/18/17 12:43 Dose: 150 mls/hr Ondansetron HCl (Zofran Inj) 4 mg IVP Q6 PRN PRN Reason: Nausea/Vomiting - Labs Labs: 06/18/17 08:02 06/18/17 08:02 PT 13.6 SECONDS (9.7-12.2) H 06/17/17 05:58 INR 1.2 06/17/17 05:58 APTT 37 SECONDS (21-34) H 06/17/17 05:58 - Head Exam Head Exam: ATRAUMATIC - Eye Exam Eye Exam: Normal appearance - ENT Exam ENT Exam: Mucous Membranes Dry - Respiratory Exam Respiratory Exam: NORMAL BREATHING PATTERN - Cardiovascular Exam Cardiovascular Exam: +S1, +S2 - GI/Abdominal Exam GI & Abdominal Exam: Normal Bowel Sounds - Extremities Exam Extremities Exam: Normal Inspection Assessment and Plan (1) Sickle cell pain crisis Assessment & Plan: IV fluids, pain meds, 02 via NC, folic acid no current transfusion requirement Status: Acute (2) Iron overload due to repeated red blood cell transfusions Assessment & Plan: minimize transfusion support outpatient chelation Status: Acute (3) Leukocytosis Assessment & Plan: may be reactive to sickle cell Status: Acute (4) Sickle cell anemia Assessment & Plan: outpatient folic acid Status: Acute
--- NOTE | 2017-06-18 17:35 | CP.PCM.PN ---
Subjective - Date & Time of Evaluation Date of Evaluation: 06/18/17 Time of Evaluation: 08:20 - Subjective Subjective: clinically same Objective - Vital Signs/Intake and Output Vital Signs (last 24 hours): Temp Pulse Resp BP Pulse Ox 98.5 F 84 20 117/85 96 06/18/17 15:00 06/18/17 15:00 06/18/17 15:00 06/18/17 15:00 06/18/17 15:00 Intake and Output: 06/18/17 06/18/17 06:59 18:59 Intake Total 900 Balance 900 - Medications Medications: Current Medications Acetaminophen (Tylenol 325mg Tab) 650 mg PO Q6 PRN PRN Reason: Fever >100.4 F Bisacodyl (Dulcolax) 10 mg [place] DAILY PRN PRN Reason: Constipation Diphenhydramine HCl (Benadryl) 25 mg IVP Q3 PRN PRN Reason: Itching / Pruritus Last Admin: 06/18/17 17:17 Dose: 25 mg Folic Acid (Folic Acid) 2 mg PO DAILY [facility] Last Admin: 06/18/17 10:36 Dose: 2 mg Hydromorphone HCl (Dilaudid) 4 mg PO Q3H PRN PRN Reason: Pain, severe (8-10) Last Admin: 06/18/17 17:17 Dose: 4 mg Sodium Chloride (Sodium Chloride 0.9%) 1,000 mls @ 150 mls/hr IV .Q6H40M [facility] Last Admin: 06/18/17 14:52 Dose: Not Given Ondansetron HCl (Zofran Inj) 4 mg IVP Q6 PRN PRN Reason: Nausea/Vomiting - Labs Labs: 06/18/17 08:02 06/18/17 08:02 PT 13.6 SECONDS (9.7-12.2) H 06/17/17 05:58 INR 1.2 06/17/17 05:58 APTT 37 SECONDS (21-34) H 06/17/17 05:58 - Constitutional Appears: Well - Head Exam Head Exam: ATRAUMATIC, NORMAL INSPECTION, NORMOCEPHALIC - Eye Exam Eye Exam: EOMI, Normal appearance, PERRL Pupil Exam: NORMAL ACCOMODATION, PERRL - ENT Exam ENT Exam: Mucous Membranes Moist, Normal Exam - Neck Exam Neck Exam: Full ROM, Normal Inspection. absent: Lymphadenopathy - Respiratory Exam Respiratory Exam: Decreased Breath Sounds - Cardiovascular Exam Cardiovascular Exam: REGULAR RHYTHM, +S1, +S2 - GI/Abdominal Exam GI & Abdominal Exam: Soft, Diminished Bowel Sounds - Rectal Exam Rectal Exam: Deferred
[2017-06-18 19:12] LABS: URINE BACTERIA RARE (<OCC); URINE BILIRUBIN NEGATIVE (NEGATIVE); URINE BLOOD 2+ (NEGATIVE); URINE CLARITY Hazy (Clear); URINE COLOR Yellow (YELLOW); URINE GLUCOSE (UA) NORMAL (Normal); URINE LEUKOCYTE ESTERASE 3+ Leu/uL (Negative); URINE PROTEIN NEGATIVE (NEGATIVE); URINE UROBILINOGEN NORMAL mg/dL (0.2-1.0)
--- NOTE | 2017-06-18 22:07 | CARD ---
APPROVED REPORT EKG Measurement Heart [id number] [place] [id number] <Conclusion> Normal sinus rhythm Normal ECG
--- NOTE | 2017-06-18 22:29 | CP.PCM.PN ---
Subjective - Date & Time of Evaluation Date of Evaluation: 06/18/17 Time of Evaluation: 22:29 - Subjective Subjective: AFEBRILE, C/O LOWER ABDOMINAL PAIN AND GENERALIZED ACHES. HAS HER PERIODS H/H 6.0/18.1 WBC 24.3 Objective - Vital Signs/Intake and Output Vital Signs (last 24 hours): Temp Pulse Resp BP Pulse Ox 98.5 F 84 20 117/85 96 06/18/17 15:00 06/18/17 15:00 06/18/17 15:00 06/18/17 15:00 06/18/17 15:00 Intake and Output: 06/18/17 06/19/17 18:59 06:59 Intake Total 900 300 Balance 900 300 - Medications Medications: Current Medications Acetaminophen (Tylenol 325mg Tab) 650 mg PO Q6 PRN PRN Reason: Fever >100.4 F Bisacodyl (Dulcolax) 10 mg [place] DAILY PRN PRN Reason: Constipation Diphenhydramine HCl (Benadryl) 25 mg IVP Q3 PRN PRN Reason: Itching / Pruritus Last Admin: 06/18/17 22:05 Dose: 25 mg Folic Acid (Folic Acid) 2 mg PO DAILY [facility] Last Admin: 06/18/17 10:36 Dose: 2 mg Hydromorphone HCl (Dilaudid) 4 mg PO Q3H PRN PRN Reason: Pain, severe (8-10) Last Admin: 06/18/17 22:04 Dose: 4 mg Sodium Chloride (Sodium Chloride 0.9%) 1,000 mls @ 150 mls/hr IV .Q6H40M [facility] Last Admin: 06/18/17 14:52 Dose: Not Given Ondansetron HCl (Zofran Inj) 4 mg IVP Q6 PRN PRN Reason: Nausea/Vomiting - Labs Labs: 06/18/17 08:02 06/18/17 08:02 PT 13.6 SECONDS (9.7-12.2) H 06/17/17 05:58 INR 1.2 06/17/17 05:58 APTT 37 SECONDS (21-34) H 06/17/17 05:58 - Constitutional Appears: No Acute Distress - Head Exam Head Exam: NORMAL INSPECTION - Eye Exam Eye Exam: EOMI, PERRL, Scleral icterus - ENT Exam ENT Exam: Normal Oropharynx - Neck Exam Neck Exam: Normal Inspection - Respiratory Exam Respiratory Exam: Clear to Ausculation Bilateral, NORMAL BREATHING PATTERN - Cardiovascular Exam Cardiovascular Exam: REGULAR RHYTHM, +S1, +S2 - GI/Abdominal Exam GI & Abdominal Exam: Soft, Tenderness (LOWER ABDOMINAL DICOMFORT), Normal Bowel Sounds - Extremities Exam Extremities Exam: Normal Capillary Refill. absent: Calf Tenderness, Pedal Edema - Neurological Exam Neurological Exam: Awake, CN II-XII Intact, Oriented x3, Reflexes Normal - Psychiatric Exam Psychiatric exam: Normal Mood - Skin Skin Exam: Normal Color, Warm Assessment and Plan (1) Sickle cell anemia Assessment & Plan: H/H 6.6/19.2 ? BLOOD TRANSFUSION. PER HEMATOLOGY. Status: Acute (2) Leukocytosis Assessment & Plan: LEUKOCYTOSIS -REACTIVE SEC TO SICKLE CELL. CONTINUE TO OBSERVE, URINE CULTURE -50,000- 100,000CFU/ML ? CONTAMINANT. BLOOD CULTURES -VE. Status: Acute (3) Anemia Status: Acute (4) Neurogenic bladder Status: Acute (5) Bilateral hydronephrosis Status: Acute
[2017-06-19] MEDS: DiphenhydrAMINE 50 mg/ml Inj IVP PRN ×7 (01:21→23:57)
[2017-06-19] MEDS: Sodium Chloride 0.9% 1,000 ML IV SCH ×2 (03:27→11:18)
[2017-06-19 06:56] LABS: BASO # 0.2 K/uL (0.0-0.2); EOS # 0.9 K/uL (0.0-0.7); LYMPH # 4.8 K/uL (1.0-4.3); LYMPH % 20.8 % (20.0-40.0); MEAN CELL VOLUME 89.3 fL (81.0-99.0); MEAN CORPUSCULAR HEMOGLOBIN 30.2 pg (27.0-31.0); MEAN CORPUSCULAR HGB CONC 33.9 g/dL (33.0-37.0); MONO % 8.7 % (0.0-10.0); NEUT # 15.3 K/uL (1.8-7.0); NEUT % 65.5 % (50.0-75.0); RBC 1.99 Mil/uL (3.80-5.20); RED CELL DISTRIBUTION WIDTH 18.2 % (11.5-14.5); WHITE BLOOD COUNT 23.3 K/uL (4.8-10.8)
[2017-06-19 07:59] LABS: ALB/GLOB RATIO 0.8 (1.0-2.1); ALBUMIN 3.4 g/dL (3.5-5.0); ALT/SGPT 88 U/L (9-52); AST/SGOT 97 U/L (14-36); BLOOD UREA NITROGEN 20 mg/dL (7-17); CALCIUM 8.1 mg/dl (8.6-10.4); GFR AFRICAN-AMERICAN > 60; GFR NON-AFRICAN AMERICAN 56
--- NOTE | 2017-06-19 18:07 | CP.PCM.PN ---
Subjective - Date & Time of Evaluation Date of Evaluation: 06/19/17 Time of Evaluation: 08:00 - Subjective Subjective: clinically same Objective - Vital Signs/Intake and Output Vital Signs (last 24 hours): Temp Pulse Resp BP Pulse Ox 98.4 F 96 H 18 119/71 100 06/19/17 15:00 06/19/17 15:00 06/19/17 15:00 06/19/17 15:00 06/19/17 15:00 Intake and Output: 06/19/17 06/19/17 06:59 18:59 Intake Total 500 200 Balance 500 200 - Medications Medications: Current Medications Acetaminophen (Tylenol 325mg Tab) 650 mg PO Q6 PRN PRN Reason: Fever >100.4 F Bisacodyl (Dulcolax) 10 mg [place] DAILY PRN PRN Reason: Constipation Diphenhydramine HCl (Benadryl) 25 mg IVP Q3 PRN PRN Reason: Itching / Pruritus Last Admin: 06/19/17 17:36 Dose: 25 mg Folic Acid (Folic Acid) 2 mg PO DAILY [facility] Last Admin: 06/19/17 10:12 Dose: 2 mg Hydromorphone HCl (Dilaudid) 4 mg PO Q3H PRN PRN Reason: Pain, severe (8-10) Last Admin: 06/19/17 17:33 Dose: 4 mg Sodium Chloride (Sodium Chloride 0.9%) 1,000 mls @ 150 mls/hr IV .Q6H40M [facility] Last Admin: 06/19/17 11:18 Dose: Not Given Ondansetron HCl (Zofran Inj) 4 mg IVP Q6 PRN PRN Reason: Nausea/Vomiting - Labs Labs: 06/19/17 06:53 06/19/17 06:53 PT 13.6 SECONDS (9.7-12.2) H 06/17/17 05:58 INR 1.2 06/17/17 05:58 APTT 37 SECONDS (21-34) H 06/17/17 05:58 - Constitutional Appears: Well - Head Exam Head Exam: ATRAUMATIC, NORMAL INSPECTION, NORMOCEPHALIC - Eye Exam Eye Exam: EOMI, Normal appearance, PERRL Pupil Exam: NORMAL ACCOMODATION, PERRL - ENT Exam ENT Exam: Mucous Membranes Moist, Normal Exam - Neck Exam Neck Exam: Full ROM, Normal Inspection. absent: Lymphadenopathy - Respiratory Exam Respiratory Exam: Decreased Breath Sounds - Cardiovascular Exam Cardiovascular Exam: REGULAR RHYTHM, +S1, +S2 - GI/Abdominal Exam GI & Abdominal Exam: Soft, Diminished Bowel Sounds - Rectal Exam Rectal Exam: Deferred
[2017-06-20] MEDS: DiphenhydrAMINE 50 mg/ml Inj IVP PRN ×6 (03:32→21:37)
[2017-06-20 07:54] LABS: BASO # 0.3 K/uL (0.0-0.2); BASO % 1.2 % (0.0-2.0); EOS # 0.9 K/uL (0.0-0.7); EOS % 4.2 % (0.0-4.0); LYMPH # 5.2 K/uL (1.0-4.3); LYMPH % 25.3 % (20.0-40.0); MEAN CELL VOLUME 89.8 fL (81.0-99.0); MEAN CORPUSCULAR HEMOGLOBIN 29.9 pg (27.0-31.0); MEAN CORPUSCULAR HGB CONC 33.3 g/dL (33.0-37.0); MEAN PLATELET VOLUME 9.3 fL (7.2-11.7); MONO # 1.8 K/uL (0.0-0.8); MONO % 8.9 % (0.0-10.0); NEUT # 12.4 K/uL (1.8-7.0); NEUT % 60.4 % (50.0-75.0); NRBC % 0.2 % (0.0-2.0); RBC 1.99 Mil/uL (3.80-5.20); RED CELL DISTRIBUTION WIDTH 18.5 % (11.5-14.5); WHITE BLOOD COUNT 20.6 K/uL (4.8-10.8)
[2017-06-20 08:01] LABS: HEMOGLOBIN 5.9 g/dL (11.0-16.0)
[2017-06-20 08:18] LABS: ALB/GLOB RATIO 0.7 (1.0-2.1); ALBUMIN 3.5 g/dL (3.5-5.0); CALCIUM 8.3 mg/dl (8.6-10.4)
--- NOTE | 2017-06-20 12:24 | CP.PCM.PN ---
Subjective - Date & Time of Evaluation Date of Evaluation: 06/20/17 Time of Evaluation: 12:18 - Subjective Subjective: AFEBRILE, VSS, C/O PAIN -GENERALIZED. URINE REPEAT REPORTED +VE E.COLI +VE ESBL S- MEROPENEM/GENTAMICIN ? COLONIZATION (NEUROGENIC BLADDER ) CASE DISCUSSED W STAFF. PT TO GET ABX PRIOR TO PROCEDURE WHEN SCHEDULED. Objective - Vital Signs/Intake and Output Vital Signs (last 24 hours): Temp Pulse Resp BP Pulse Ox 98.3 F 89 18 97/65 L 100 06/20/17 07:30 06/20/17 07:30 06/20/17 07:30 06/20/17 07:30 06/20/17 07:30 Intake and Output: 06/20/17 06/20/17 06:59 18:59 Intake Total 200 Balance 200 - Medications Medications: Current Medications Acetaminophen (Tylenol 325mg Tab) 650 mg PO Q6 PRN PRN Reason: Fever >100.4 F Bisacodyl (Dulcolax) 10 mg [place] DAILY PRN PRN Reason: Constipation Diphenhydramine HCl (Benadryl) 25 mg IVP Q3 PRN PRN Reason: Itching / Pruritus Last Admin: 06/20/17 10:06 Dose: 25 mg Folic Acid (Folic Acid) 2 mg PO DAILY AP Last Admin: 06/20/17 10:04 Dose: 2 mg Hydromorphone HCl (Dilaudid) 4 mg PO Q3H PRN PRN Reason: Pain, severe (8-10) Last Admin: 06/20/17 10:04 Dose: 4 mg Ondansetron HCl (Zofran Inj) 4 mg IVP Q6 PRN PRN Reason: Nausea/Vomiting - Labs Labs: 06/20/17 07:44 06/20/17 07:44 PT 13.6 SECONDS (9.7-12.2) H 06/17/17 05:58 INR 1.2 06/17/17 05:58 APTT 37 SECONDS (21-34) H 06/17/17 05:58 - Constitutional Appears: No Acute Distress - Head Exam Head Exam: NORMAL INSPECTION - Eye Exam Eye Exam: EOMI, PERRL, Scleral icterus - ENT Exam ENT Exam: Normal Oropharynx - Neck Exam Neck Exam: Normal Inspection - Respiratory Exam Respiratory Exam: Clear to Ausculation Bilateral - Cardiovascular Exam Cardiovascular Exam: REGULAR RHYTHM, +S1 - GI/Abdominal Exam GI & Abdominal Exam: Soft, Normal Bowel Sounds - Extremities Exam Extremities Exam: Normal Capillary Refill. absent: Calf Tenderness, Pedal Edema - Neurological Exam Neurological Exam: Awake, CN II-XII Intact, Oriented x3, Reflexes Normal - Skin Skin Exam: Normal Color, Pallor Assessment and Plan (1) Sickle cell anemia Status: Acute (2) Leukocytosis Assessment & Plan: REACTIVE SEC TO SICKLE CELL. Status: Acute (3) Anemia Assessment & Plan: H/H LOW - PER HEMATOLOGY Status: Acute (4) Neurogenic bladder Assessment & Plan: COLONIZATION WITH +VE ESBL E. COLI/ VRE. NO ABX FOR NOW. Status: Acute (5) Bilateral hydronephrosis Assessment & Plan: PT FOR CHANGE OF RT. STENT ? WEDNESDAY PER . LT STENT CHANGED 06/15/17. Status: Acute
--- NOTE | 2017-06-20 15:15 | CP.PCM.PN ---
Subjective - Date & Time of Evaluation Date of Evaluation: 06/20/17 Time of Evaluation: 08:20 - Subjective Subjective: clinically same Objective - Vital Signs/Intake and Output Vital Signs (last 24 hours): Temp Pulse Resp BP Pulse Ox 98.3 F 89 18 97/65 L 100 06/20/17 07:30 06/20/17 07:30 06/20/17 07:30 06/20/17 07:30 06/20/17 07:30 Intake and Output: 06/20/17 06/20/17 06:59 18:59 Intake Total 200 630 Balance 200 630 - Medications Medications: Current Medications Acetaminophen (Tylenol 325mg Tab) 650 mg PO Q6 PRN PRN Reason: Fever >100.4 F Bisacodyl (Dulcolax) 10 mg [place] DAILY PRN PRN Reason: Constipation Diphenhydramine HCl (Benadryl) 25 mg IVP Q3 PRN PRN Reason: Itching / Pruritus Last Admin: 06/20/17 13:05 Dose: 25 mg Folic Acid (Folic Acid) 2 mg PO DAILY AP Last Admin: 06/20/17 10:04 Dose: 2 mg Hydromorphone HCl (Dilaudid) 4 mg PO Q3H PRN PRN Reason: Pain, severe (8-10) Last Admin: 06/20/17 13:05 Dose: 4 mg Ondansetron HCl (Zofran Inj) 4 mg IVP Q6 PRN PRN Reason: Nausea/Vomiting - Labs Labs: 06/20/17 07:44 06/20/17 07:44 PT 13.6 SECONDS (9.7-12.2) H 06/17/17 05:58 INR 1.2 06/17/17 05:58 APTT 37 SECONDS (21-34) H 06/17/17 05:58 - Constitutional Appears: Well - Head Exam Head Exam: ATRAUMATIC, NORMAL INSPECTION, NORMOCEPHALIC - Eye Exam Eye Exam: EOMI, Normal appearance, PERRL Pupil Exam: NORMAL ACCOMODATION, PERRL - ENT Exam ENT Exam: Mucous Membranes Moist, Normal Exam - Neck Exam Neck Exam: Full ROM, Normal Inspection. absent: Lymphadenopathy - Respiratory Exam Respiratory Exam: Decreased Breath Sounds - Cardiovascular Exam Cardiovascular Exam: REGULAR RHYTHM, +S1, +S2 - GI/Abdominal Exam GI & Abdominal Exam: Soft, Diminished Bowel Sounds - Rectal Exam Rectal Exam: Deferred
--- NOTE | 2017-06-20 21:37 | CP.PCM.PN ---
Subjective - Date & Time of Evaluation Date of Evaluation: 06/20/17 Time of Evaluation: 20:10 - Subjective Subjective: Less pain, feels tired. Objective - Vital Signs/Intake and Output Vital Signs (last 24 hours): Temp Pulse Resp BP Pulse Ox 98.6 F 87 20 108/72 100 06/20/17 15:56 06/20/17 15:56 06/20/17 15:56 06/20/17 15:56 06/20/17 15:56 Intake and Output: 06/20/17 06/21/17 18:59 06:59 Intake Total 630 Balance 630 - Medications Medications: Current Medications Acetaminophen (Tylenol 325mg Tab) 650 mg PO Q6 PRN PRN Reason: Fever >100.4 F Bisacodyl (Dulcolax) 10 mg [place] DAILY PRN PRN Reason: Constipation Diphenhydramine HCl (Benadryl) 25 mg IVP Q3 PRN PRN Reason: Itching / Pruritus Last Admin: 06/20/17 17:29 Dose: 25 mg Folic Acid (Folic Acid) 2 mg PO DAILY AP Last Admin: 06/20/17 10:04 Dose: 2 mg Hydromorphone HCl (Dilaudid) 4 mg PO Q3H PRN PRN Reason: Pain, severe (8-10) Last Admin: 06/20/17 17:29 Dose: 4 mg Ondansetron HCl (Zofran Inj) 4 mg IVP Q6 PRN PRN Reason: Nausea/Vomiting - Labs Labs: 06/20/17 07:44 06/20/17 07:44 PT 13.6 SECONDS (9.7-12.2) H 06/17/17 05:58 INR 1.2 06/17/17 05:58 APTT 37 SECONDS (21-34) H 06/17/17 05:58 - Head Exam Head Exam: ATRAUMATIC - Eye Exam Eye Exam: Normal appearance - ENT Exam ENT Exam: Mucous Membranes Dry - Respiratory Exam Respiratory Exam: NORMAL BREATHING PATTERN - Cardiovascular Exam Cardiovascular Exam: +S1, +S2 - GI/Abdominal Exam GI & Abdominal Exam: Normal Bowel Sounds Assessment and Plan (1) Sickle cell pain crisis Assessment & Plan: IV fluids, pain meds, 02 via NC, folic acid no current transfusion requirement Status: Acute (2) Iron overload due to repeated red blood cell transfusions Assessment & Plan: minimize transfusion support outpatient chelation Status: Acute (3) Leukocytosis Assessment & Plan: may be reactive to sickle cell Status: Acute (4) Sickle cell anemia Assessment & Plan: outpatient folic acid Status: Acute
[2017-06-21] MEDS: DiphenhydrAMINE 50 mg/ml Inj IVP PRN ×8 (00:34→22:21)
[2017-06-21 07:00] LABS: BASO # 0.2 K/uL (0.0-0.2); BASO % 0.9 % (0.0-2.0); EOS % 4.2 % (0.0-4.0); LYMPH # 4.4 K/uL (1.0-4.3); LYMPH % 18.9 % (20.0-40.0); MEAN CELL VOLUME 89.7 fL (81.0-99.0); MEAN CORPUSCULAR HEMOGLOBIN 30.2 pg (27.0-31.0); MEAN CORPUSCULAR HGB CONC 33.7 g/dL (33.0-37.0); MEAN PLATELET VOLUME 9.1 fL (7.2-11.7); MONO % 8.9 % (0.0-10.0); NEUT # 15.5 K/uL (1.8-7.0); NEUT % 67.1 % (50.0-75.0); NRBC % 0.2 % (0.0-2.0); RBC 2.04 Mil/uL (3.80-5.20); RED CELL DISTRIBUTION WIDTH 18.4 % (11.5-14.5); WHITE BLOOD COUNT 23.1 K/uL (4.8-10.8)
[2017-06-21 07:12] LABS: ALB/GLOB RATIO 0.7 (1.0-2.1); ALBUMIN 3.6 g/dL (3.5-5.0); CALCIUM 8.3 mg/dl (8.6-10.4)
[2017-06-21 07:18] LABS: HEMOGLOBIN 6.1 g/dL (11.0-16.0)
[2017-06-21] MEDS: Dextrose 5%/0.45% NS 1,000 ML IV SCH ×2 (09:34→22:06)
[2017-06-21 14:32] LABS: IRON 151 ug/dL (37-170)
[2017-06-21 14:41] LABS: % IRON SATURATION 80 (20-55); TOTAL IRON BINDING CAPACITY 189 ug/dL (250-450)
--- NOTE | 2017-06-21 16:57 | CP.PCM.PN ---
<ChristopherabrilMelanie - Last Filed: 06/21/17 16:53> Subjective - Date & Time of Evaluation Date of Evaluation: 06/21/17 Time of Evaluation: 16:53 - Subjective Subjective: PGY [address] Hernandez Pt seen and examined this morning. She is seen walking around the hallway. Patient states diffuse pain has improved. Denies having any CP, SOB, abd pain, N/v/D/C. Objective - Vital Signs/Intake and Output Vital Signs (last 24 hours): Temp Pulse Resp BP Pulse Ox 98.2 F 113 H 20 104/65 96 06/21/17 15:00 06/21/17 15:00 06/21/17 15:00 06/21/17 15:00 06/21/17 15:00 Intake and Output: 06/21/17 06/21/17 06:59 18:59 Intake Total 800 Balance 800 - Medications Medications: Current Medications Acetaminophen (Tylenol 325mg Tab) 650 mg PO Q6 PRN PRN Reason: Fever >100.4 F Bisacodyl (Dulcolax) 10 mg [place] DAILY PRN PRN Reason: Constipation Diphenhydramine HCl (Benadryl) 25 mg IVP Q3 PRN PRN Reason: Itching / Pruritus Last Admin: 06/21/17 15:54 Dose: 25 mg Folic Acid (Folic Acid) 2 mg PO DAILY [facility] Last Admin: 06/21/17 09:34 Dose: 2 mg Hydromorphone HCl (Dilaudid) 4 mg PO Q3H PRN PRN Reason: Pain, severe (8-10) Last Admin: 06/21/17 15:52 Dose: 4 mg Dextrose/Sodium Chloride (Dextrose 5%/0.45% Ns 1000 Ml) 1,000 mls @ 75 mls/hr IV .[id number] [facility] Last Admin: 06/21/17 09:34 Dose: 75 mls/hr Ondansetron HCl (Zofran Inj) 4 mg IVP Q6 PRN PRN Reason: Nausea/Vomiting - Labs Labs: 06/21/17 06:46 06/21/17 06:46 PT 13.6 SECONDS (9.7-12.2) H 06/17/17 05:58 INR 1.2 06/17/17 05:58 APTT 37 SECONDS (21-34) H 06/17/17 05:58 - Constitutional Appears: Non-toxic, No Acute Distress - Head Exam Head Exam: ATRAUMATIC - ENT Exam ENT Exam: Mucous Membranes Moist - Respiratory Exam Respiratory Exam: Clear to Ausculation Bilateral. absent: Accessory Muscle Use , Rales, Rhonchi, Wheezes, Respiratory Distress - Cardiovascular Exam Cardiovascular Exam: REGULAR RHYTHM, +S1, +S2. absent: Gallop, Rubs, Murmur - GI/Abdominal Exam GI & Abdominal Exam: Soft, Normal Bowel Sounds. absent: Distended, Firm, Guarding, Rigid, Tenderness, Organomegaly - Extremities Exam Extremities Exam: absent: Pedal Edema, Tenderness - Neurological Exam Neurological Exam: Alert, Awake, Oriented x3 - Psychiatric Exam Psychiatric exam: Normal Affect, Normal Mood - Skin Skin Exam: Dry, Intact, Normal Color, Warm Assessment and Plan - Assessment and Plan (Free Text) Assessment: Sickle Cell Crisis - Hgb stable. Will continue to monitor. Transfusion if Hgb below 5.0 per Heme/ onc recs. - Pain control with PO dilaudid - folic acid - D5/.45% NS at 75 cc - Retic count 2.5 on admission. Will recheck tomorrow morning - Dr. Leyva consulted help appreciated - Zofran prn Hx frequent UTIs - f/u urine culture - UA is abnormal but unchanged from other Ua - patient is asymptomatic and afebrile - Dr. Jones consulted, help appreciated - will wait on urine culture before starting antibiotics Renal stents -Dr. Matias, urology, help appreciated - Left shunt replaced on 06/15. - Per, Dr. Matias pt will have right shunt replaced tomorrow. NPO past [address] José, low risk for bleeding so no need to to transfuse. Transaminitis -hepatitis and HIV negative 2.5 - Trending down - likely due to iron overload. Patient takes deferasirox at home for chelation. Patient asked ot bring her home medication in. Neurogenic bladder - Straight cath prn Proph -chemical DVT prophylaxis not indicated; will order SCD; OOB as tolerated -GI prophylaxis not indicated -Benadryl prn All management per Dr. Alba Hernandez. <Rosalina Hernandez - Last Filed: 06/25/17 11:35> Objective - Vital Signs/Intake and Output Vital Signs (last 24 hours): Temp Pulse Resp BP Pulse Ox 98.0 F 84 20 97/65 L 99 06/25/17 07:57 06/25/17 07:57 06/25/17 07:57 06/25/17 07:57 06/25/17 07:57 - Medications Medications: Current Medications Acetaminophen (Tylenol 325mg Tab) 650 mg PO Q6 PRN PRN Reason: Fever >100.4 F Bisacodyl (Dulcolax) 10 mg [place] DAILY PRN PRN Reason: Constipation Diphenhydramine HCl (Benadryl) 25 mg IVP Q3 PRN PRN Reason: Itching / Pruritus Last Admin: 06/25/17 10:21 Dose: 25 mg Folic Acid (Folic Acid) 2 mg PO DAILY AP Last Admin: 06/25/17 10:20 Dose: 2 mg Hydromorphone HCl (Dilaudid) 4 mg PO Q3H PRN PRN Reason: Pain, severe (8-10) Last Admin: 06/25/17 10:21 Dose: 4 mg Ondansetron HCl (Zofran Inj) 4 mg IVP Q6 PRN PRN Reason: Nausea/Vomiting - Labs Labs: 06/25/17 05:58 06/25/17 05:58 PT 13.6 SECONDS (9.7-12.2) H 06/17/17 05:58 INR 1.2 06/17/17 05:58 APTT 37 SECONDS (21-34) H 06/17/17 05:58 Attending/Attestation - Attestation I have personally seen and examined this patient.: Yes I have fully participated in the care of the patient.: Yes I have reviewed all pertinent clinical information, including history, physical exam and plan: Yes Notes (Text): case seen and d.w staff and resident, concurred with finding and management..
--- NOTE | 2017-06-21 17:37 | CP.PCM.PN ---
Subjective - Date & Time of Evaluation Date of Evaluation: 06/21/17 Time of Evaluation: 08:20 - Subjective Subjective: clinically same Objective - Vital Signs/Intake and Output Vital Signs (last 24 hours): Temp Pulse Resp BP Pulse Ox 98.2 F 113 H 20 104/65 96 06/21/17 15:00 06/21/17 15:00 06/21/17 15:00 06/21/17 15:00 06/21/17 15:00 Intake and Output: 06/21/17 06/21/17 06:59 18:59 Intake Total 800 Balance 800 - Medications Medications: Current Medications Acetaminophen (Tylenol 325mg Tab) 650 mg PO Q6 PRN PRN Reason: Fever >100.4 F Bisacodyl (Dulcolax) 10 mg [place] DAILY PRN PRN Reason: Constipation Diphenhydramine HCl (Benadryl) 25 mg IVP Q3 PRN PRN Reason: Itching / Pruritus Last Admin: 06/21/17 15:54 Dose: 25 mg Folic Acid (Folic Acid) 2 mg PO DAILY [facility] Last Admin: 06/21/17 09:34 Dose: 2 mg Hydromorphone HCl (Dilaudid) 4 mg PO Q3H PRN PRN Reason: Pain, severe (8-10) Last Admin: 06/21/17 15:52 Dose: 4 mg Dextrose/Sodium Chloride (Dextrose 5%/0.45% Ns 1000 Ml) 1,000 mls @ 75 mls/hr IV .[id number] [facility] Last Admin: 06/21/17 09:34 Dose: 75 mls/hr Ondansetron HCl (Zofran Inj) 4 mg IVP Q6 PRN PRN Reason: Nausea/Vomiting - Labs Labs: 06/21/17 06:46 06/21/17 06:46 PT 13.6 SECONDS (9.7-12.2) H 06/17/17 05:58 INR 1.2 06/17/17 05:58 APTT 37 SECONDS (21-34) H 06/17/17 05:58 - Constitutional Appears: Well - Head Exam Head Exam: ATRAUMATIC, NORMAL INSPECTION, NORMOCEPHALIC - Eye Exam Eye Exam: EOMI, Normal appearance, PERRL Pupil Exam: NORMAL ACCOMODATION, PERRL - ENT Exam ENT Exam: Mucous Membranes Moist, Normal Exam - Neck Exam Neck Exam: Full ROM, Normal Inspection. absent: Lymphadenopathy - Respiratory Exam Respiratory Exam: Decreased Breath Sounds - Cardiovascular Exam Cardiovascular Exam: REGULAR RHYTHM, +S1, +S2 - GI/Abdominal Exam GI & Abdominal Exam: Soft, Diminished Bowel Sounds - Rectal Exam Rectal Exam: Deferred
--- NOTE | 2017-06-21 22:11 | CP.PCM.PN ---
Subjective - Date & Time of Evaluation Date of Evaluation: 06/21/17 Time of Evaluation: 22:11 - Subjective Subjective: AFEBRILE, AMBULATING. DENIES ANY PAIN. PT FOR OR IN AM PER RESIDENT. IV AMIKACIN 750MG X 1 DOSE IN OR PRIOR TO PROCEDURE Objective - Vital Signs/Intake and Output Vital Signs (last 24 hours): Temp Pulse Resp BP Pulse Ox 98.2 F 113 H 20 104/65 96 06/21/17 15:00 06/21/17 15:00 06/21/17 15:00 06/21/17 15:00 06/21/17 15:00 - Medications Medications: Current Medications Acetaminophen (Tylenol 325mg Tab) 650 mg PO Q6 PRN PRN Reason: Fever >100.4 F Bisacodyl (Dulcolax) 10 mg [place] DAILY PRN PRN Reason: Constipation Diphenhydramine HCl (Benadryl) 25 mg IVP Q3 PRN PRN Reason: Itching / Pruritus Last Admin: 06/21/17 19:18 Dose: 25 mg Folic Acid (Folic Acid) 2 mg PO DAILY [facility] Last Admin: 06/21/17 09:34 Dose: 2 mg Hydromorphone HCl (Dilaudid) 4 mg PO Q3H PRN PRN Reason: Pain, severe (8-10) Last Admin: 06/21/17 19:14 Dose: 4 mg Dextrose/Sodium Chloride (Dextrose 5%/0.45% Ns 1000 Ml) 1,000 mls @ 75 mls/hr IV .[id number] [facility] Last Admin: 06/21/17 22:06 Dose: Not Given Ondansetron HCl (Zofran Inj) 4 mg IVP Q6 PRN PRN Reason: Nausea/Vomiting - Labs Labs: 06/21/17 06:46 06/21/17 06:46 PT 13.6 SECONDS (9.7-12.2) H 06/17/17 05:58 INR 1.2 06/17/17 05:58 APTT 37 SECONDS (21-34) H 06/17/17 05:58 - Constitutional Appears: No Acute Distress - Head Exam Head Exam: NORMAL INSPECTION - Eye Exam Eye Exam: EOMI, PERRL - ENT Exam ENT Exam: Normal Oropharynx - Neck Exam Neck Exam: Normal Inspection - Respiratory Exam Respiratory Exam: Clear to Ausculation Bilateral - Cardiovascular Exam Cardiovascular Exam: REGULAR RHYTHM, +S1, +S2 - GI/Abdominal Exam GI & Abdominal Exam: Soft, Normal Bowel Sounds - Extremities Exam Extremities Exam: Normal Capillary Refill. absent: Calf Tenderness, Pedal Edema - Back Exam Back Exam: absent: CVA tenderness (L), CVA tenderness (R) - Neurological Exam Neurological Exam: Alert, Awake, CN II-XII Intact - Psychiatric Exam Psychiatric exam: Normal Mood - Skin Skin Exam: Normal Color, Pallor Assessment and Plan (1) Sickle cell anemia Status: Acute (2) Leukocytosis Status: Acute (3) Anemia Status: Acute (4) Neurogenic bladder Assessment & Plan: URINE REPEAT REPORTED +VE E.COLI +VE ESBL S- MEROPENEM/GENTAMICIN CASE DISCUSSED WITH [facility] . REPORTS E. COLI S AMIKACIN FERNANDA 2. CASE DISCUSSED WITH RESIDENT DR BRIGGS IV AMIKACIN 750MG IVPB JUST PRIORT TO PROCEDURE OR IN OR . IN AM Status: Acute (5) Bilateral hydronephrosis Assessment & Plan: PT FOR CHANGE OF RT .STENT IN AM Status: Acute
--- NOTE | 2017-06-21 23:09 | CP.PCM.PN ---
Subjective - Date & Time of Evaluation Date of Evaluation: 06/21/17 Time of Evaluation: 20:15 - Subjective Subjective: Pain improved Objective - Vital Signs/Intake and Output Vital Signs (last 24 hours): Temp Pulse Resp BP Pulse Ox 98.2 F 113 H 20 104/65 96 06/21/17 15:00 06/21/17 15:00 06/21/17 15:00 06/21/17 15:00 06/21/17 15:00 - Medications Medications: Current Medications Acetaminophen (Tylenol 325mg Tab) 650 mg PO Q6 PRN PRN Reason: Fever >100.4 F Bisacodyl (Dulcolax) 10 mg [place] DAILY PRN PRN Reason: Constipation Diphenhydramine HCl (Benadryl) 25 mg IVP Q3 PRN PRN Reason: Itching / Pruritus Last Admin: 06/21/17 22:21 Dose: 25 mg Folic Acid (Folic Acid) 2 mg PO DAILY [facility] Last Admin: 06/21/17 09:34 Dose: 2 mg Hydromorphone HCl (Dilaudid) 4 mg PO Q3H PRN PRN Reason: Pain, severe (8-10) Last Admin: 06/21/17 22:19 Dose: 4 mg Dextrose/Sodium Chloride (Dextrose 5%/0.45% Ns 1000 Ml) 1,000 mls @ 75 mls/hr IV .[id number] [facility] Last Admin: 06/21/17 22:06 Dose: Not Given Ondansetron HCl (Zofran Inj) 4 mg IVP Q6 PRN PRN Reason: Nausea/Vomiting - Labs Labs: 06/21/17 06:46 06/21/17 06:46 PT 13.6 SECONDS (9.7-12.2) H 06/17/17 05:58 INR 1.2 06/17/17 05:58 APTT 37 SECONDS (21-34) H 06/17/17 05:58 - Head Exam Head Exam: ATRAUMATIC - Eye Exam Eye Exam: Scleral icterus - ENT Exam ENT Exam: Mucous Membranes Dry - Respiratory Exam Respiratory Exam: NORMAL BREATHING PATTERN - Cardiovascular Exam Cardiovascular Exam: +S1, +S2 - GI/Abdominal Exam GI & Abdominal Exam: Normal Bowel Sounds - Extremities Exam Extremities Exam: Normal Inspection Assessment and Plan (1) Sickle cell pain crisis Assessment & Plan: IV fluids, pain meds, 02 via [place], folic acid no current transfusion indication Status: Acute (2) Iron overload due to repeated red blood cell transfusions Assessment & Plan: outpatient chelation minimize transfusion support Status: Acute (3) Leukocytosis Assessment & Plan: reactive component from sickle cell Status: Acute (4) Sickle cell anemia Assessment & Plan: outpatient folic acid and chelation Status: Acute
[2017-06-22] MEDS: DiphenhydrAMINE 50 mg/ml Inj IVP PRN ×7 (01:28→21:17)
[2017-06-22 07:05] LABS: BASO # 0.3 K/uL (0.0-0.2); EOS % 3.9 % (0.0-4.0); LYMPH # 6.7 K/uL (1.0-4.3); LYMPH % 25.3 % (20.0-40.0); MEAN CELL VOLUME 88.8 fL (81.0-99.0); MEAN CORPUSCULAR HEMOGLOBIN 30.2 pg (27.0-31.0); MEAN PLATELET VOLUME 9.3 fL (7.2-11.7); MONO # 2.3 K/uL (0.0-0.8); MONO % 8.7 % (0.0-10.0); NEUT # 16.2 K/uL (1.8-7.0); NEUT % 61.1 % (50.0-75.0); NRBC % 0.2 % (0.0-2.0); RBC 2.02 Mil/uL (3.80-5.20); RED CELL DISTRIBUTION WIDTH 18.5 % (11.5-14.5); WHITE BLOOD COUNT 26.6 K/uL (4.8-10.8)
[2017-06-22 07:11] LABS: HEMOGLOBIN 6.1 g/dL (11.0-16.0)
[2017-06-22 07:45] LABS: ALB/GLOB RATIO 0.7 (1.0-2.1); ALBUMIN 3.8 g/dL (3.5-5.0); CALCIUM 8.1 mg/dl (8.6-10.4)
--- NOTE | 2017-06-22 13:07 | CP.PCM.PN ---
Subjective - Date & Time of Evaluation Date of Evaluation: 06/22/17 Time of Evaluation: 12:30 - Subjective Subjective: Has some back pain, for urologic procedure. Objective - Vital Signs/Intake and Output Vital Signs (last 24 hours): Temp Pulse Resp BP Pulse Ox 98.5 F 103 H 18 103/70 98 06/22/17 07:00 06/22/17 07:00 06/22/17 07:00 06/22/17 10:56 06/22/17 07:00 - Medications Medications: Current Medications Acetaminophen (Tylenol 325mg Tab) 650 mg PO Q6 PRN PRN Reason: Fever >100.4 F Bisacodyl (Dulcolax) 10 mg [place] DAILY PRN PRN Reason: Constipation Diphenhydramine HCl (Benadryl) 25 mg IVP Q3 PRN PRN Reason: Itching / Pruritus Last Admin: 06/22/17 10:53 Dose: 25 mg Folic Acid (Folic Acid) 2 mg PO DAILY [facility] OF [facility] Last Admin: 06/22/17 10:55 Dose: Not Given Hydromorphone HCl (Dilaudid) 4 mg PO Q3H PRN PRN Reason: Pain, severe (8-10) Last Admin: 06/22/17 10:53 Dose: 4 mg Dextrose/Sodium Chloride (Dextrose 5%/0.45% Ns 1000 Ml) 1,000 mls @ 75 mls/hr IV .[id number] [facility] Last Admin: 06/21/17 22:06 Dose: Not Given Ondansetron HCl (Zofran Inj) 4 mg IVP Q6 PRN PRN Reason: Nausea/Vomiting - Labs Labs: 06/22/17 06:54 06/22/17 06:54 PT 13.6 SECONDS (9.7-12.2) H 06/17/17 05:58 INR 1.2 06/17/17 05:58 APTT 37 SECONDS (21-34) H 06/17/17 05:58 - Head Exam Head Exam: ATRAUMATIC - Eye Exam Eye Exam: Normal appearance - ENT Exam ENT Exam: Mucous Membranes Dry - Respiratory Exam Respiratory Exam: NORMAL BREATHING PATTERN - Cardiovascular Exam Cardiovascular Exam: +S1, +S2 - GI/Abdominal Exam GI & Abdominal Exam: Normal Bowel Sounds Assessment and Plan (1) Sickle cell pain crisis Assessment & Plan: IV fluids, pain meds, 02 via NC, folic acid no current transfusion indication Status: Acute (2) Iron overload due to repeated red blood cell transfusions Assessment & Plan: outpatient chelation minimize transfusion support Status: Acute (3) Leukocytosis Assessment & Plan: reactive component from sickle cell Status: Acute (4) Sickle cell anemia Assessment & Plan: outpatient folic acid and chelation Status: Acute
[2017-06-22] MEDS: Dextrose 5%/0.45% NS 1,000 ML IV SCH (14:43)
--- NOTE | 2017-06-22 15:20 | PCM.URO ---
Urology Progress Note - Objective Lab Studies: Reviewed (unfortunately due to scheduling conflicts we need to reschedule) Lab Results Last 24 Hours: Laboratory Results - last 24 hr 06/22/17 06/22/17 06/22/17 06:54 06:54 13:08 WBC 26.6 H RBC 2.02 L Hgb 6.1 L* Hct 18.0 L MCV 88.8 MCH 30.2 MCHC 34.0 RDW 18.5 H Plt Count 190 MPV 9.3 Neut % (Auto) 61.1 Lymph % (Auto) 25.3 Clare % (Auto) 8.7 Eos % (Auto) 3.9 Baso % (Auto) 1.0 Neut # (Auto) 16.2 H Lymph # (Auto) 6.7 H Clare # (Auto) 2.3 H Eos # (Auto) 1.0 H Baso # (Auto) 0.3 H Sodium 141 Potassium 5.3 H Chloride 108 H Carbon Dioxide 20 L Anion Gap 18 BUN 34 H Creatinine 1.4 H Est GFR ( Amer) 51 Est GFR (Non-Af Amer) 42 Random Glucose 101 Calcium 8.1 L Total Bilirubin 2.1 H AST 95 H ALT 86 H Alkaline Phosphatase 201 H Total Protein 8.9 H Albumin 3.8 Globulin 5.1 H Albumin/Globulin Ratio 0.7 L Urine HCG, Qual Negative Blood Type Antibody Screen 06/22/17 13:36 WBC RBC Hgb Hct MCV MCH MCHC RDW Plt Count MPV Neut % (Auto) Lymph % (Auto) Clare % (Auto) Eos % (Auto) Baso % (Auto) Neut # (Auto) Lymph # (Auto) Clare # (Auto) Eos # (Auto) Baso # (Auto) Sodium Potassium Chloride Carbon Dioxide Anion Gap BUN Creatinine Est GFR ( Amer) Est GFR (Non-Af Amer) Random Glucose Calcium Total Bilirubin AST ALT Alkaline Phosphatase Total Protein Albumin Globulin Albumin/Globulin Ratio Urine HCG, Qual Blood Type O POSITIVE Antibody Screen Negative Vital Signs: Vital Signs - 24 hr 06/21/17 06/22/17 06/22/17 23:19 07:00 10:56 Temperature 98.5 F 98.5 F Pulse Rate 110 H 103 H Respiratory 20 18 Rate Blood Pressure 112/73 96/61 L 103/70 O2 Sat by Pulse 97 98 Oximetry
--- NOTE | 2017-06-22 15:26 | CP.PCM.PN ---
Subjective - Date & Time of Evaluation Date of Evaluation: 06/22/17 Time of Evaluation: 08:00 - Subjective Subjective: clinically same Objective - Vital Signs/Intake and Output Vital Signs (last 24 hours): Temp Pulse Resp BP Pulse Ox 98.5 F 103 H 18 103/70 98 06/22/17 07:00 06/22/17 07:00 06/22/17 07:00 06/22/17 10:56 06/22/17 07:00 - Medications Medications: Current Medications Acetaminophen (Tylenol 325mg Tab) 650 mg PO Q6 PRN PRN Reason: Fever >100.4 F Bisacodyl (Dulcolax) 10 mg [place] DAILY PRN PRN Reason: Constipation Diphenhydramine HCl (Benadryl) 25 mg IVP Q3 PRN PRN Reason: Itching / Pruritus Last Admin: 06/22/17 14:41 Dose: 25 mg Folic Acid (Folic Acid) 2 mg PO DAILY [facility] Last Admin: 06/22/17 10:55 Dose: Not Given Hydromorphone HCl (Dilaudid) 4 mg PO Q3H PRN PRN Reason: Pain, severe (8-10) Last Admin: 06/22/17 14:41 Dose: 4 mg Dextrose/Sodium Chloride (Dextrose 5%/0.45% Ns 1000 Ml) 1,000 mls @ 75 mls/hr IV .[id number] [facility] Last Admin: 06/22/17 14:43 Dose: Not Given Ondansetron HCl (Zofran Inj) 4 mg IVP Q6 PRN PRN Reason: Nausea/Vomiting - Labs Labs: 06/22/17 06:54 06/22/17 06:54 PT 13.6 SECONDS (9.7-12.2) H 06/17/17 05:58 INR 1.2 06/17/17 05:58 APTT 37 SECONDS (21-34) H 06/17/17 05:58 - Constitutional Appears: Well - Head Exam Head Exam: ATRAUMATIC, NORMAL INSPECTION, NORMOCEPHALIC - Eye Exam Eye Exam: EOMI, Normal appearance, PERRL Pupil Exam: NORMAL ACCOMODATION, PERRL - ENT Exam ENT Exam: Mucous Membranes Moist, Normal Exam - Neck Exam Neck Exam: Full ROM, Normal Inspection. absent: Lymphadenopathy - Respiratory Exam Respiratory Exam: Decreased Breath Sounds - Cardiovascular Exam Cardiovascular Exam: REGULAR RHYTHM, +S1, +S2 - GI/Abdominal Exam GI & Abdominal Exam: Soft, Diminished Bowel Sounds - Rectal Exam Rectal Exam: Deferred
--- NOTE | 2017-06-22 23:56 | CP.PCM.PN ---
Subjective - Date & Time of Evaluation Date of Evaluation: 06/22/17 Time of Evaluation: 23:56 - Subjective Subjective: AFEBRILE C/O BACKPAIN / FLANK PAIN PT RESCHEDULED FOR OR ON WEDNESDAY PER IV AMIKACIN 750MG X 1 DOSE IN OR PRIOR TO PROCEDURE CASE DISCUSSED WITH STAFF. Objective - Vital Signs/Intake and Output Vital Signs (last 24 hours): Temp Pulse Resp BP Pulse Ox 98.6 F 112 H 20 107/58 L 98 06/22/17 23:00 06/22/17 23:00 06/22/17 23:00 06/22/17 23:00 06/22/17 23:00 Intake and Output: 06/22/17 06/23/17 18:59 06:59 Intake Total 600 Balance 600 - Medications Medications: Current Medications Acetaminophen (Tylenol 325mg Tab) 650 mg PO Q6 PRN PRN Reason: Fever >100.4 F Bisacodyl (Dulcolax) 10 mg [place] DAILY PRN PRN Reason: Constipation Diphenhydramine HCl (Benadryl) 25 mg IVP Q3 PRN PRN Reason: Itching / Pruritus Last Admin: 06/22/17 21:17 Dose: 25 mg Folic Acid (Folic Acid) 2 mg PO DAILY [facility] Last Admin: 06/22/17 10:55 Dose: Not Given Hydromorphone HCl (Dilaudid) 4 mg PO Q3H PRN PRN Reason: Pain, severe (8-10) Last Admin: 06/22/17 21:16 Dose: 4 mg Dextrose/Sodium Chloride (Dextrose 5%/0.45% Ns 1000 Ml) 1,000 mls @ 75 mls/hr IV .[id number] [facility] Last Admin: 06/22/17 14:43 Dose: Not Given Amikacin Sulfate 750 mg/ (Sodium Chloride) 103 mls @ 100 mls/hr IV ONCE ONE PRN Reason: Protocol Stop: 06/24/17 10:01 Ondansetron HCl (Zofran Inj) 4 mg IVP Q6 PRN PRN Reason: Nausea/Vomiting - Labs Labs: 06/22/17 06:54 06/22/17 06:54 PT 13.6 SECONDS (9.7-12.2) H 06/17/17 05:58 INR 1.2 06/17/17 05:58 APTT 37 SECONDS (21-34) H 06/17/17 05:58 - Constitutional Appears: No Acute Distress - Head Exam Head Exam: NORMAL INSPECTION - Eye Exam Eye Exam: PERRL, Scleral icterus - ENT Exam ENT Exam: Normal Oropharynx - Neck Exam Neck Exam: Normal Inspection - Respiratory Exam Respiratory Exam: Clear to Ausculation Bilateral - Cardiovascular Exam Cardiovascular Exam: Tachycardia, REGULAR RHYTHM, +S1, +S2 - GI/Abdominal Exam GI & Abdominal Exam: Soft, Tenderness (LT FLANK/BACK/LEGS), Normal Bowel Sounds - Extremities Exam Extremities Exam: absent: Calf Tenderness, Pedal Edema - Neurological Exam Neurological Exam: Awake, CN II-XII Intact, Normal Gait, Oriented x3 - Psychiatric Exam Psychiatric exam: Normal Mood Assessment and Plan (1) Sickle cell anemia Status: Acute (2) Leukocytosis Status: Acute (3) Anemia Status: Acute (4) Neurogenic bladder Status: Acute (5) Bilateral hydronephrosis Assessment & Plan: PT FOR CHANGE OF RT STENT ON WEDNESDAY. Status: Acute
[2017-06-23] MEDS: DiphenhydrAMINE 50 mg/ml Inj IVP PRN ×8 (00:29→23:02)
[2017-06-23] MEDS: Dextrose 5%/0.45% NS 1,000 ML IV SCH (03:30)
[2017-06-23 07:18] LABS: ALB/GLOB RATIO 0.7 (1.0-2.1); ALBUMIN 3.6 g/dL (3.5-5.0); CALCIUM 7.8 mg/dl (8.6-10.4)
[2017-06-23 07:22] LABS: BASO # 0.3 K/uL (0.0-0.2); BASO % 1.2 % (0.0-2.0); EOS % 4.5 % (0.0-4.0); LYMPH # 5.4 K/uL (1.0-4.3); LYMPH % 23.3 % (20.0-40.0); MEAN CELL VOLUME 88.8 fL (81.0-99.0); MEAN CORPUSCULAR HEMOGLOBIN 30.8 pg (27.0-31.0); MEAN CORPUSCULAR HGB CONC 34.7 g/dL (33.0-37.0); MEAN PLATELET VOLUME 9.7 fL (7.2-11.7); MONO % 8.8 % (0.0-10.0); NEUT # 14.5 K/uL (1.8-7.0); NEUT % 62.2 % (50.0-75.0); NRBC % 0.4 % (0.0-2.0); RBC 1.87 Mil/uL (3.80-5.20); RED CELL DISTRIBUTION WIDTH 18.4 % (11.5-14.5); WHITE BLOOD COUNT 23.3 K/uL (4.8-10.8)
[2017-06-23 07:30] LABS: HEMOGLOBIN 5.8 g/dL (11.0-16.0)
--- NOTE | 2017-06-23 12:15 | PCM.URO ---
Urology Progress Note - General General: No Complaints, Tolerating Diet - Subjective Voiding Well: Yes (Pt voids between self-cath. Residual estimated to be approx 500cc acc to pt) Dysuria: No Hematuria: No Dsypnea: No Chest Pain: No Fever & Chills: No - Objective Lab Results Last 24 Hours: Laboratory Results - last 24 hr 06/22/17 06/22/17 06/23/17 13:08 13:36 06:28 WBC 23.3 H RBC 1.87 L Hgb 5.8 L* Hct 16.6 L MCV 88.8 MCH 30.8 MCHC 34.7 RDW 18.4 H Plt Count 165 MPV 9.7 Neut % (Auto) 62.2 Lymph % (Auto) 23.3 [place] % (Auto) 8.8 Eos % (Auto) 4.5 H Baso % (Auto) 1.2 Neut # (Auto) 14.5 H Lymph # (Auto) 5.4 H [place] # (Auto) 2.0 H Eos # (Auto) 1.0 H Baso # (Auto) 0.3 H Sodium Potassium Chloride Carbon Dioxide Anion Gap BUN Creatinine Est GFR ( Amer) Est GFR (Non-Af Amer) Random Glucose Calcium Total Bilirubin AST ALT Alkaline Phosphatase Total Protein Albumin Globulin Albumin/Globulin Ratio Urine HCG, Qual Negative Blood Type O POSITIVE Antibody Screen Negative 06/23/17 06:28 WBC RBC Hgb Hct MCV MCH MCHC RDW Plt Count MPV Neut % (Auto) Lymph % (Auto) [place] % (Auto) Eos % (Auto) Baso % (Auto) Neut # (Auto) Lymph # (Auto) [place] # (Auto) Eos # (Auto) Baso # (Auto) Sodium 141 Potassium 4.7 Chloride 109 H Carbon Dioxide 20 L Anion Gap 17 BUN 27 H Creatinine 1.3 H Est GFR ( Amer) 55 Est GFR (Non-Af Amer) 46 Random Glucose 97 Calcium 7.8 L Total Bilirubin 2.2 H AST 101 H ALT 71 H Alkaline Phosphatase 218 H Total Protein 8.4 H Albumin 3.6 Globulin 4.8 H Albumin/Globulin Ratio 0.7 L Urine HCG, Qual Blood Type Antibody Screen Intake & Output: Intake & Output 06/22/17 06/23/17 06/23/17 18:59 06:59 18:59 Intake Total 600 Balance 600 Intake: Oral 600 Other: # Voids Straight 1 Urine, Voided 2 # Bowel Movements 0 Vital Signs: Vital Signs - 24 hr 06/22/17 06/22/17 06/23/17 16:04 23:00 07:00 Temperature 98.1 F 98.6 F 98.2 F Pulse Rate 108 H 112 H 93 H Respiratory 20 20 18 Rate Blood Pressure 121/66 107/58 L 94/61 L O2 Sat by Pulse 100 98 99 Oximetry - Physical Exam Abdominal Exam: Soft, Non-Tender, Non-Distended Back: No CVA Tenderness - Plan Additional Information: Imp: UTI. Bilat stents in place. Chronic retention, poss neurogenic bladder. P: For cysto, stent exchange. Antibiotics as per ID - Date & Time of Note Date: 06/23/17 Time: 11:30
--- NOTE | 2017-06-23 15:14 | CP.PCM.PN ---
Subjective - Date & Time of Evaluation Date of Evaluation: 06/23/17 Time of Evaluation: 08:00 - Subjective Subjective: clinically same Objective - Vital Signs/Intake and Output Vital Signs (last 24 hours): Temp Pulse Resp BP Pulse Ox 98.2 F 93 H 18 94/61 L 99 06/23/17 07:00 06/23/17 07:00 06/23/17 07:00 06/23/17 07:00 06/23/17 07:00 Intake and Output: 06/23/17 06/23/17 06:59 18:59 Intake Total 600 Balance 600 - Medications Medications: Current Medications Acetaminophen (Tylenol 325mg Tab) 650 mg PO Q6 PRN PRN Reason: Fever >100.4 F Bisacodyl (Dulcolax) 10 mg [place] DAILY PRN PRN Reason: Constipation Diphenhydramine HCl (Benadryl) 25 mg IVP Q3 PRN PRN Reason: Itching / Pruritus Last Admin: 06/23/17 12:46 Dose: 25 mg Folic Acid (Folic Acid) 2 mg PO DAILY [facility] Last Admin: 06/23/17 09:25 Dose: 2 mg Hydromorphone HCl (Dilaudid) 4 mg PO Q3H PRN PRN Reason: Pain, severe (8-10) Last Admin: 06/23/17 12:47 Dose: 4 mg Dextrose/Sodium Chloride (Dextrose 5%/0.45% Ns 1000 Ml) 1,000 mls @ 75 mls/hr IV .[id number] [facility] Last Admin: 06/23/17 03:30 Dose: Not Given Amikacin Sulfate 750 mg/ (Sodium Chloride) 103 mls @ 100 mls/hr IV ONCE ONE PRN Reason: Protocol Stop: 06/24/17 10:01 Ondansetron HCl (Zofran Inj) 4 mg IVP Q6 PRN PRN Reason: Nausea/Vomiting - Labs Labs: 06/23/17 06:28 06/23/17 06:28 PT 13.6 SECONDS (9.7-12.2) H 06/17/17 05:58 INR 1.2 06/17/17 05:58 APTT 37 SECONDS (21-34) H 06/17/17 05:58 - Constitutional Appears: Well - Head Exam Head Exam: ATRAUMATIC, NORMAL INSPECTION, NORMOCEPHALIC - Eye Exam Eye Exam: EOMI, Normal appearance, PERRL Pupil Exam: NORMAL ACCOMODATION, PERRL - ENT Exam ENT Exam: Mucous Membranes Moist, Normal Exam - Neck Exam Neck Exam: Full ROM, Normal Inspection. absent: Lymphadenopathy - Respiratory Exam Respiratory Exam: Decreased Breath Sounds - Cardiovascular Exam Cardiovascular Exam: REGULAR RHYTHM, +S1, +S2 - GI/Abdominal Exam GI & Abdominal Exam: Soft, Diminished Bowel Sounds - Rectal Exam Rectal Exam: Deferred
--- NOTE | 2017-06-23 22:23 | CP.PCM.PN ---
Subjective - Date & Time of Evaluation Date of Evaluation: 06/23/17 Time of Evaluation: 13:00 - Subjective Subjective: Has some back pain. Objective - Vital Signs/Intake and Output Vital Signs (last 24 hours): Temp Pulse Resp BP Pulse Ox 98.6 F 115 H 18 102/64 99 06/23/17 15:00 06/23/17 15:00 06/23/17 15:00 06/23/17 15:00 06/23/17 15:00 - Medications Medications: Current Medications Acetaminophen (Tylenol 325mg Tab) 650 mg PO Q6 PRN PRN Reason: Fever >100.4 F Bisacodyl (Dulcolax) 10 mg [place] DAILY PRN PRN Reason: Constipation Diphenhydramine HCl (Benadryl) 25 mg IVP Q3 PRN PRN Reason: Itching / Pruritus Last Admin: 06/23/17 19:40 Dose: 25 mg Folic Acid (Folic Acid) 2 mg PO DAILY [facility] Last Admin: 06/23/17 09:25 Dose: 2 mg Hydromorphone HCl (Dilaudid) 4 mg PO Q3H PRN PRN Reason: Pain, severe (8-10) Last Admin: 06/23/17 19:39 Dose: 4 mg Dextrose/Sodium Chloride (Dextrose 5%/0.45% Ns 1000 Ml) 1,000 mls @ 75 mls/hr IV .[id number] [facility] Last Admin: 06/23/17 03:30 Dose: Not Given Amikacin Sulfate 750 mg/ (Sodium Chloride) 103 mls @ 100 mls/hr IV ONCE ONE PRN Reason: Protocol Stop: 06/24/17 10:01 Ondansetron HCl (Zofran Inj) 4 mg IVP Q6 PRN PRN Reason: Nausea/Vomiting - Labs Labs: 06/23/17 06:28 06/23/17 06:28 PT 13.6 SECONDS (9.7-12.2) H 06/17/17 05:58 INR 1.2 06/17/17 05:58 APTT 37 SECONDS (21-34) H 06/17/17 05:58 - Head Exam Head Exam: ATRAUMATIC - Eye Exam Eye Exam: Normal appearance - ENT Exam ENT Exam: Mucous Membranes Dry - Respiratory Exam Respiratory Exam: NORMAL BREATHING PATTERN - Cardiovascular Exam Cardiovascular Exam: +S1, +S2 - GI/Abdominal Exam GI & Abdominal Exam: Normal Bowel Sounds Assessment and Plan (1) Sickle cell pain crisis Assessment & Plan: IV fluids, pain meds, 02 via NC, folic acid no current transfusion indication Status: Acute (2) Iron overload due to repeated red blood cell transfusions Assessment & Plan: outpatient chelation minimize transfusion support Status: Acute (3) Leukocytosis Assessment & Plan: reactive component from sickle cell Status: Acute (4) Sickle cell anemia Assessment & Plan: outpatient folic acid and chelation Status: Acute
--- NOTE | 2017-06-23 23:40 | CP.PCM.PN ---
Subjective - Date & Time of Evaluation Date of Evaluation: 06/23/17 Time of Evaluation: 23:40 - Subjective Subjective: AFEBRILE C/O BACKPAIN / FLANK PAIN PT FOR OR ON WEDNESDAY PER IV AMIKACIN 750MG X 1 DOSE IN OR PRIOR TO PROCEDURE CASE DISCUSSED WITH STAFF. Objective - Vital Signs/Intake and Output Vital Signs (last 24 hours): Temp Pulse Resp BP Pulse Ox 98.6 F 115 H 18 102/64 99 06/23/17 15:00 06/23/17 15:00 06/23/17 15:00 06/23/17 15:00 06/23/17 15:00 Intake and Output: 06/23/17 06/24/17 18:59 06:59 Intake Total 600 Balance 600 - Medications Medications: Current Medications Acetaminophen (Tylenol 325mg Tab) 650 mg PO Q6 PRN PRN Reason: Fever >100.4 F Bisacodyl (Dulcolax) 10 mg [place] DAILY PRN PRN Reason: Constipation Diphenhydramine HCl (Benadryl) 25 mg IVP Q3 PRN PRN Reason: Itching / Pruritus Last Admin: 06/23/17 23:02 Dose: 25 mg Folic Acid (Folic Acid) 2 mg PO DAILY [facility] Last Admin: 06/23/17 09:25 Dose: 2 mg Hydromorphone HCl (Dilaudid) 4 mg PO Q3H PRN PRN Reason: Pain, severe (8-10) Last Admin: 06/23/17 23:01 Dose: 4 mg Dextrose/Sodium Chloride (Dextrose 5%/0.45% Ns 1000 Ml) 1,000 mls @ 75 mls/hr IV .[id number] [facility] Last Admin: 06/23/17 03:30 Dose: Not Given Amikacin Sulfate 750 mg/ (Sodium Chloride) 103 mls @ 100 mls/hr IV ONCE ONE PRN Reason: Protocol Stop: 06/24/17 10:01 Ondansetron HCl (Zofran Inj) 4 mg IVP Q6 PRN PRN Reason: Nausea/Vomiting - Labs Labs: 06/23/17 06:28 06/23/17 06:28 PT 13.6 SECONDS (9.7-12.2) H 06/17/17 05:58 INR 1.2 06/17/17 05:58 APTT 37 SECONDS (21-34) H 06/17/17 05:58 - Constitutional Appears: No Acute Distress - Head Exam Head Exam: NORMAL INSPECTION - Eye Exam Eye Exam: EOMI, PERRL - ENT Exam ENT Exam: Normal Oropharynx - Neck Exam Neck Exam: Normal Inspection - Respiratory Exam Respiratory Exam: Clear to Ausculation Bilateral - Cardiovascular Exam Cardiovascular Exam: Tachycardia, +S1, +S2 - GI/Abdominal Exam GI & Abdominal Exam: Soft, Normal Bowel Sounds - Extremities Exam Extremities Exam: absent: Calf Tenderness, Pedal Edema - Back Exam Back Exam: CVA tenderness (L) - Neurological Exam Neurological Exam: Awake, CN II-XII Intact, Normal Gait, Oriented x3 - Skin Skin Exam: Normal Color, Warm Assessment and Plan (1) Sickle cell anemia Status: Acute (2) Leukocytosis Assessment & Plan: MOST LIKELY REACTIVE 2NDRY TO SSC. H/H LOW , PER HEMATOLOGY. Status: Acute (3) Anemia Status: Acute (4) Neurogenic bladder Status: Acute (5) Bilateral hydronephrosis Assessment & Plan: FOR OR ELO. CYSTO/AND STENT CHANGE PER . Status: Acute
[2017-06-24] MEDS: DiphenhydrAMINE 50 mg/ml Inj IVP PRN ×5 (03:57→22:49)
[2017-06-24 07:34] LABS: BASO # 0.2 K/uL (0.0-0.2); EOS # 0.8 K/uL (0.0-0.7); EOS % 3.5 % (0.0-4.0); LYMPH # 5.2 K/uL (1.0-4.3); LYMPH % 22.6 % (20.0-40.0); MEAN CELL VOLUME 88.9 fL (81.0-99.0); MEAN CORPUSCULAR HEMOGLOBIN 30.4 pg (27.0-31.0); MEAN CORPUSCULAR HGB CONC 34.2 g/dL (33.0-37.0); MONO % 8.7 % (0.0-10.0); NEUT # 14.8 K/uL (1.8-7.0); NEUT % 64.2 % (50.0-75.0); NRBC % 0.6 % (0.0-2.0); RBC 1.67 Mil/uL (3.80-5.20); RED CELL DISTRIBUTION WIDTH 18.4 % (11.5-14.5)
[2017-06-24 07:38] LABS: HEMOGLOBIN 5.1 g/dL (11.0-16.0)
[2017-06-24 07:54] LABS: ALB/GLOB RATIO 0.7 (1.0-2.1); ALBUMIN 3.1 g/dL (3.5-5.0); CALCIUM 7.9 mg/dl (8.6-10.4)
--- NOTE | 2017-06-24 14:09 | CP.PCM.PN ---
Subjective - Date & Time of Evaluation Date of Evaluation: 06/24/17 Time of Evaluation: 11:00 - Subjective Subjective: Feels tired For 1U PRBC today Objective - Vital Signs/Intake and Output Vital Signs (last 24 hours): Temp Pulse Resp BP Pulse Ox 98.3 F 96 H 18 115/76 97 06/24/17 12:52 06/24/17 12:52 06/24/17 12:52 06/24/17 12:52 06/24/17 08:00 Intake and Output: 06/24/17 06/24/17 06:59 18:59 Intake Total 600 325 Balance 600 325 - Medications Medications: Current Medications Acetaminophen (Tylenol 325mg Tab) 650 mg PO Q6 PRN PRN Reason: Fever >100.4 F Bisacodyl (Dulcolax) 10 mg [place] DAILY PRN PRN Reason: Constipation Diphenhydramine HCl (Benadryl) 25 mg IVP Q3 PRN PRN Reason: Itching / Pruritus Last Admin: 06/24/17 10:59 Dose: 25 mg Folic Acid (Folic Acid) 2 mg PO DAILY [facility] Last Admin: 06/24/17 10:24 Dose: 2 mg Hydromorphone HCl (Dilaudid) 4 mg PO Q3H PRN PRN Reason: Pain, severe (8-10) Last Admin: 06/24/17 10:59 Dose: 4 mg Ondansetron HCl (Zofran Inj) 4 mg IVP Q6 PRN PRN Reason: Nausea/Vomiting - Labs Labs: 06/24/17 07:13 06/24/17 07:13 PT 13.6 SECONDS (9.7-12.2) H 06/17/17 05:58 INR 1.2 06/17/17 05:58 APTT 37 SECONDS (21-34) H 06/17/17 05:58 - Head Exam Head Exam: ATRAUMATIC - Eye Exam Eye Exam: Normal appearance - ENT Exam ENT Exam: Mucous Membranes Dry - Respiratory Exam Respiratory Exam: NORMAL BREATHING PATTERN - Cardiovascular Exam Cardiovascular Exam: +S1, +S2 - GI/Abdominal Exam GI & Abdominal Exam: Normal Bowel Sounds Assessment and Plan (1) Sickle cell pain crisis Assessment & Plan: IV fluids, pain meds, 02 via NC, folic acid 1U PRBC today Status: Acute (2) Iron overload due to repeated red blood cell transfusions Assessment & Plan: outpatient chelation minimize transfusion support Status: Acute (3) Leukocytosis Assessment & Plan: reactive component from sickle cell Status: Acute (4) Sickle cell anemia Assessment & Plan: outpatient folic acid and chelation Status: Acute
[2017-06-24] MEDS ORDERED: Propofol 10 mg/ml Inj (20 ML) ONE (14:40)
[2017-06-24] MEDS ORDERED: Midazolam 2 MG/2 ML VIAL ONE (14:40)
[2017-06-24] MEDS ORDERED: HYDROmorphone 0.5 mg/0.5 ml ISec IVP PRN (15:34)
--- NOTE | 2017-06-24 16:39 | RAD ---
HISTORY: AGNIESZKA STENT REMOVAL COMPARISON: No prior. FINDINGS: BOWEL: An initial film is labeled [employer] consultant. This demonstrates an unremarkable bowel gas pattern. There is mild retained feces. Bilateral ureteral stents are identified. A 2nd film is labeled last film. This demonstrates a ureteral stent in the bladder possibly extending into the distal right ureter. BONES: Normal. OTHER FINDINGS: None. IMPRESSION: Right ureteral stent possibly within bladder or extending into distal right ureter. Left ureteral stent has been removed.
--- NOTE | 2017-06-24 16:40 | RAD ---
PROCEDURE: Intraoperative fluoroscopy HISTORY: BI STENT REMOVAL COMPARISON: Not available TECHNIQUE: Intraoperative fluoroscopy was provided for stent removal. Total time of fluoroscopy was 6.1 seconds. FINDINGS: Multiple fluoroscopic spot films are submitted. IMPRESSION: Fluoroscopy provided.
--- NOTE | 2017-06-24 19:09 | CP.PCM.PN ---
Subjective - Date & Time of Evaluation Date of Evaluation: 06/24/17 Time of Evaluation: 08:20 - Subjective Subjective: clinically same Objective - Vital Signs/Intake and Output Vital Signs (last 24 hours): Temp Pulse Resp BP Pulse Ox 98.5 F 89 17 100/64 100 06/24/17 16:25 06/24/17 16:25 06/24/17 16:25 06/24/17 16:25 06/24/17 16:25 Intake and Output: 06/24/17 06/25/17 18:59 06:59 Intake Total 828 Balance 828 - Medications Medications: Current Medications Acetaminophen (Tylenol 325mg Tab) 650 mg PO Q6 PRN PRN Reason: Fever >100.4 F Bisacodyl (Dulcolax) 10 mg [place] DAILY PRN PRN Reason: Constipation Diphenhydramine HCl (Benadryl) 25 mg IVP Q3 PRN PRN Reason: Itching / Pruritus Last Admin: 06/24/17 18:49 Dose: 25 mg Folic Acid (Folic Acid) 2 mg PO DAILY [facility] Last Admin: 06/24/17 10:24 Dose: 2 mg Hydromorphone HCl (Dilaudid) 4 mg PO Q3H PRN PRN Reason: Pain, severe (8-10) Last Admin: 06/24/17 18:49 Dose: 4 mg Ondansetron HCl (Zofran Inj) 4 mg IVP Q6 PRN PRN Reason: Nausea/Vomiting - Labs Labs: 06/24/17 07:13 06/24/17 07:13 PT 13.6 SECONDS (9.7-12.2) H 06/17/17 05:58 INR 1.2 06/17/17 05:58 APTT 37 SECONDS (21-34) H 06/17/17 05:58 - Constitutional Appears: Well - Head Exam Head Exam: ATRAUMATIC, NORMAL INSPECTION, NORMOCEPHALIC - Eye Exam Eye Exam: EOMI, Normal appearance, PERRL Pupil Exam: NORMAL ACCOMODATION, PERRL - ENT Exam ENT Exam: Mucous Membranes Moist, Normal Exam - Neck Exam Neck Exam: Full ROM, Normal Inspection. absent: Lymphadenopathy - Respiratory Exam Respiratory Exam: Decreased Breath Sounds - Cardiovascular Exam Cardiovascular Exam: REGULAR RHYTHM, +S1, +S2 - GI/Abdominal Exam GI & Abdominal Exam: Soft, Diminished Bowel Sounds - Rectal Exam Rectal Exam: Deferred
--- NOTE | 2017-06-24 22:39 | CP.PCM.PN ---
Subjective - Date & Time of Evaluation Date of Evaluation: 06/24/17 Time of Evaluation: 22:39 - Subjective Subjective: afebrile, S/P OR -CYSTO/AND RT. STENT CHANGED . LT. STENT REMOVED PER RN. FEELS TIRED /AND WEAK. FOR BLOOD TRANSFUSION I UNIT PER HEMATOLOGY. Objective - Vital Signs/Intake and Output Vital Signs (last 24 hours): Temp Pulse Resp BP Pulse Ox 98.5 F 89 17 100/64 100 06/24/17 16:25 06/24/17 16:25 06/24/17 16:25 06/24/17 16:25 06/24/17 16:25 Intake and Output: 06/24/17 06/25/17 18:59 06:59 Intake Total 828 Balance 828 - Medications Medications: Current Medications Acetaminophen (Tylenol 325mg Tab) 650 mg PO Q6 PRN PRN Reason: Fever >100.4 F Bisacodyl (Dulcolax) 10 mg [place] DAILY PRN PRN Reason: Constipation Diphenhydramine HCl (Benadryl) 25 mg IVP Q3 PRN PRN Reason: Itching / Pruritus Last Admin: 06/24/17 18:49 Dose: 25 mg Folic Acid (Folic Acid) 2 mg PO DAILY [facility] Last Admin: 06/24/17 10:24 Dose: 2 mg Hydromorphone HCl (Dilaudid) 4 mg PO Q3H PRN PRN Reason: Pain, severe (8-10) Last Admin: 06/24/17 18:49 Dose: 4 mg Ondansetron HCl (Zofran Inj) 4 mg IVP Q6 PRN PRN Reason: Nausea/Vomiting - Labs Labs: 06/24/17 07:13 06/24/17 07:13 PT 13.6 SECONDS (9.7-12.2) H 06/17/17 05:58 INR 1.2 06/17/17 05:58 APTT 37 SECONDS (21-34) H 06/17/17 05:58 - Constitutional Appears: No Acute Distress - Head Exam Head Exam: NORMAL INSPECTION - Eye Exam Eye Exam: EOMI, PERRL - ENT Exam ENT Exam: Normal Oropharynx - Neck Exam Neck Exam: Normal Inspection - Respiratory Exam Respiratory Exam: Clear to Ausculation Bilateral - Cardiovascular Exam Cardiovascular Exam: REGULAR RHYTHM, +S1, +S2 - GI/Abdominal Exam GI & Abdominal Exam: Soft, Normal Bowel Sounds - Extremities Exam Extremities Exam: Normal Capillary Refill. absent: Calf Tenderness, Pedal Edema - Neurological Exam Neurological Exam: Awake, CN II-XII Intact, Oriented x3 - Psychiatric Exam Psychiatric exam: Normal Mood - Skin Skin Exam: Pallor, Warm Assessment and Plan (1) Sickle cell anemia Status: Acute (2) Leukocytosis Status: Acute (3) Anemia Assessment & Plan: PER HEMATOLOGY . I UNIT PRBC TODAY Status: Acute (4) Neurogenic bladder Status: Acute (5) Bilateral hydronephrosis Assessment & Plan: S/P OR TODAY AND EXCHANGE OF RT. STENT AND LEFT STENT REMOVED. PT RECEIVED 1 DOSE AMIKACIN 750MG X .1 TODAY PRE -OPT. Status: Acute
[2017-06-25] MEDS: DiphenhydrAMINE 50 mg/ml Inj IVP PRN ×4 (02:06→14:00)
[2017-06-25 06:00] LABS: BASO # 0.1 K/uL (0.0-0.2); BASO % 0.7 % (0.0-2.0); EOS # 0.8 K/uL (0.0-0.7); EOS % 3.4 % (0.0-4.0); LYMPH # 4.1 K/uL (1.0-4.3); MEAN CELL VOLUME 89.3 fL (81.0-99.0); MEAN CORPUSCULAR HEMOGLOBIN 29.7 pg (27.0-31.0); MEAN CORPUSCULAR HGB CONC 33.3 g/dL (33.0-37.0); MEAN PLATELET VOLUME 7.9 fL (7.2-11.7); MONO # 2.1 K/uL (0.0-0.8); MONO % 9.4 % (0.0-10.0); NEUT # 15.7 K/uL (1.8-7.0); NEUT % 68.5 % (50.0-75.0); NRBC % 0.3 % (0.0-2.0); RBC 2.04 Mil/uL (3.80-5.20); RED CELL DISTRIBUTION WIDTH 18.3 % (11.5-14.5); WHITE BLOOD COUNT 22.8 K/uL (4.8-10.8)
[2017-06-25 06:09] LABS: HEMOGLOBIN 6.1 g/dL (11.0-16.0)
[2017-06-25 06:15] LABS: ALB/GLOB RATIO 0.7 (1.0-2.1); ALBUMIN 3.2 g/dL (3.5-5.0); CALCIUM 7.7 mg/dl (8.6-10.4)
--- NOTE | 2017-06-25 11:20 | CP.PCM.PN ---
Subjective - Date & Time of Evaluation Date of Evaluation: 06/25/17 Time of Evaluation: 11:17 - Subjective Subjective: PGY2 progress note for Dr. Hernandez Pt seen and examined at bedside. No acute events overnight. Pt is resting. Complaining of feeling tired and lower extremity pains. Denies having any CP, SOB, abd pain, N/V/D/C, F/C. Pt tolerating diet well. Pt still doing straight caths prn. Objective - Vital Signs/Intake and Output Vital Signs (last 24 hours): Temp Pulse Resp BP Pulse Ox 98.0 F 84 20 97/65 L 99 06/25/17 07:57 06/25/17 07:57 06/25/17 07:57 06/25/17 07:57 06/25/17 07:57 - Medications Medications: Current Medications Acetaminophen (Tylenol 325mg Tab) 650 mg PO Q6 PRN PRN Reason: Fever >100.4 F Bisacodyl (Dulcolax) 10 mg [place] DAILY PRN PRN Reason: Constipation Diphenhydramine HCl (Benadryl) 25 mg IVP Q3 PRN PRN Reason: Itching / Pruritus Last Admin: 06/25/17 10:21 Dose: 25 mg Folic Acid (Folic Acid) 2 mg PO DAILY [facility] Last Admin: 06/25/17 10:20 Dose: 2 mg Hydromorphone HCl (Dilaudid) 4 mg PO Q3H PRN PRN Reason: Pain, severe (8-10) Last Admin: 06/25/17 10:21 Dose: 4 mg Ondansetron HCl (Zofran Inj) 4 mg IVP Q6 PRN PRN Reason: Nausea/Vomiting - Labs Labs: 06/25/17 05:58 06/25/17 05:58 PT 13.6 SECONDS (9.7-12.2) H 06/17/17 05:58 INR 1.2 06/17/17 05:58 APTT 37 SECONDS (21-34) H 06/17/17 05:58 - Constitutional Appears: Non-toxic, No Acute Distress - Head Exam Head Exam: ATRAUMATIC - ENT Exam ENT Exam: Mucous Membranes Moist - Respiratory Exam Respiratory Exam: Clear to Ausculation Bilateral. absent: Accessory Muscle Use , Rales, Rhonchi, Wheezes, Respiratory Distress - Cardiovascular Exam Cardiovascular Exam: REGULAR RHYTHM, +S1, +S2. absent: Diastolic murmur, Gallop , Rubs, Murmur - GI/Abdominal Exam GI & Abdominal Exam: Soft, Normal Bowel Sounds. absent: Distended, Firm, Guarding, Rigid, Tenderness, Organomegaly - Extremities Exam Extremities Exam: absent: Pedal Edema, Tenderness - Neurological Exam Neurological Exam: Alert, Awake, Oriented x3 - Psychiatric Exam Psychiatric exam: Normal Affect, Normal Mood - Skin Skin Exam: Dry, Intact, Normal Color, Warm Assessment and Plan - Assessment and Plan (Free Text) Assessment: Sickle Cell Crisis - S/P 1 unit transfused 06/24/17. Hgb improved this morning - Pain control with PO dilaudid - folic acid - Dr. Leyva consulted help appreciated - Zofran prn Hx frequent UTIs - patient is asymptomatic and afebrile - Dr. Jones consulted, help appreciated Renal stents - S/P cystoscopy removal of left ureteral stent (intact). Right ureteroscopy removal of retained right ureteral stent. Insertion of right ureteral with string attached POD #1 - Dr. Matias, urology, help appreciated - Left shunt replaced on 06/15. - Per, Dr. Matias pt will have right shunt replaced tomorrow. NPO past [address] José, low risk for bleeding so no need to to transfuse. Transaminitis -hepatitis and HIV negative 2.5 - Trending down - likely due to iron overload. Patient takes deferasirox at home for chelation. Neurogenic bladder - Straight cath prn Proph -chemical DVT prophylaxis not indicated; will order SCD; OOB as tolerated -GI prophylaxis not indicated -Benadryl prn -Dulcolax prn All management per Dr. Alba Hernandez.
--- NOTE | 2017-06-25 17:27 | PCM.URO ---
Urology Progress Note - General General: No Complaints - Subjective Abdominal Pain: No Flank Pain: No Nausea: No Vomiting: No Voiding Well: Yes (and on self cath) Dysuria: No Hematuria: No Dsypnea: No Chest Pain: No Fever & Chills: No Other: feeling well - Objective Lab Results Last 24 Hours: Laboratory Results - last 24 hr 06/25/17 06/25/17 05:58 05:58 WBC 22.8 H RBC 2.04 L Hgb 6.1 L* Hct 18.3 L MCV 89.3 MCH 29.7 MCHC 33.3 RDW 18.3 H Plt Count 202 MPV 7.9 Neut % (Auto) 68.5 Lymph % (Auto) 18.0 L [place] % (Auto) 9.4 Eos % (Auto) 3.4 Baso % (Auto) 0.7 Neut # (Auto) 15.7 H Lymph # (Auto) 4.1 [place] # (Auto) 2.1 H Eos # (Auto) 0.8 H Baso # (Auto) 0.1 Sodium 141 Potassium 4.5 Chloride 110 H Carbon Dioxide 21 L Anion Gap 14 BUN 21 H Creatinine 1.3 H Est GFR ( Amer) 55 Est GFR (Non-Af Amer) 46 Random Glucose 93 Calcium 7.7 L Total Bilirubin 1.9 H AST 82 H ALT 63 H Alkaline Phosphatase 180 H Total Protein 7.6 Albumin 3.2 L Globulin 4.4 H Albumin/Globulin Ratio 0.7 L Intake & Output: Intake & Output 06/24/17 06/25/17 06/25/17 18:59 06:59 18:59 Intake Total 828 Balance 828 Intake: IV 503 Blood Product 325 Red Blood Cells Cpd As1 325 Lr Unit [id number] Vital Signs: Vital Signs - 24 hr 06/24/17 06/25/17 06/25/17 23:35 07:57 08:30 Temperature 98.6 F 98.0 F Pulse Rate 104 H 84 84 Respiratory 20 20 Rate Blood Pressure 106/70 97/65 L O2 Sat by Pulse 95 99 Oximetry 06/25/17 15:00 Temperature 97.9 F Pulse Rate 95 H Respiratory 18 Rate Blood Pressure 117/79 O2 Sat by Pulse 100 Oximetry - Physical Exam Abdominal Exam: Soft, Non-Tender, Non-Distended Back: No CVA Tenderness - Plan Additional Information: Imp: stable p cysto, stent remvoal and stent exchange - Date & Time of Note Date: 06/25/17 Time: 12:15
--- NOTE | 2017-06-25 19:27 | CP.PCM.PN ---
Subjective - Date & Time of Evaluation Date of Evaluation: 06/25/17 Time of Evaluation: 08:00 - Subjective Subjective: clinically same Objective - Vital Signs/Intake and Output Vital Signs (last 24 hours): Temp Pulse Resp BP Pulse Ox 97.9 F 95 H 18 117/79 100 06/25/17 15:00 06/25/17 15:00 06/25/17 15:00 06/25/17 15:00 06/25/17 15:00 - Medications Medications: Current Medications Acetaminophen (Tylenol 325mg Tab) 650 mg PO Q6 PRN PRN Reason: Fever >100.4 F Bisacodyl (Dulcolax) 10 mg RI DAILY PRN PRN Reason: Constipation Diphenhydramine HCl (Benadryl) 25 mg IVP Q3 PRN PRN Reason: Itching / Pruritus Last Admin: 06/25/17 14:00 Dose: 25 mg Folic Acid (Folic Acid) 2 mg PO DAILY AP Last Admin: 06/25/17 10:20 Dose: 2 mg Hydromorphone HCl (Dilaudid) 4 mg PO Q3H PRN PRN Reason: Pain, severe (8-10) Last Admin: 06/25/17 14:01 Dose: 4 mg Ondansetron HCl (Zofran Inj) 4 mg IVP Q6 PRN PRN Reason: Nausea/Vomiting - Labs Labs: 06/25/17 05:58 06/25/17 05:58 PT 13.6 SECONDS (9.7-12.2) H 06/17/17 05:58 INR 1.2 06/17/17 05:58 APTT 37 SECONDS (21-34) H 06/17/17 05:58 - Constitutional Appears: Well - Head Exam Head Exam: ATRAUMATIC, NORMAL INSPECTION, NORMOCEPHALIC - Eye Exam Eye Exam: EOMI, Normal appearance, PERRL Pupil Exam: NORMAL ACCOMODATION, PERRL - ENT Exam ENT Exam: Mucous Membranes Moist, Normal Exam - Neck Exam Neck Exam: Full ROM, Normal Inspection. absent: Lymphadenopathy - Respiratory Exam Respiratory Exam: Decreased Breath Sounds - Cardiovascular Exam Cardiovascular Exam: REGULAR RHYTHM, +S1, +S2 - GI/Abdominal Exam GI & Abdominal Exam: Soft, Diminished Bowel Sounds - Rectal Exam Rectal Exam: Deferred
--- NOTE | 2017-06-25 21:45 | CP.PCM.PN ---
Subjective - Date & Time of Evaluation Date of Evaluation: 06/25/17 Time of Evaluation: 12:45 - Subjective Subjective: Feels tired Objective - Vital Signs/Intake and Output Vital Signs (last 24 hours): Temp Pulse Resp BP Pulse Ox 97.9 F 95 H 18 117/79 100 06/25/17 15:00 06/25/17 15:00 06/25/17 15:00 06/25/17 15:00 06/25/17 15:00 - Medications Medications: Current Medications Acetaminophen (Tylenol 325mg Tab) 650 mg PO Q6 PRN PRN Reason: Fever >100.4 F Bisacodyl (Dulcolax) 10 mg ND DAILY PRN PRN Reason: Constipation Diphenhydramine HCl (Benadryl) 25 mg IVP Q3 PRN PRN Reason: Itching / Pruritus Last Admin: 06/25/17 14:00 Dose: 25 mg Folic Acid (Folic Acid) 2 mg PO DAILY PA Last Admin: 06/25/17 10:20 Dose: 2 mg Hydromorphone HCl (Dilaudid) 4 mg PO Q3H PRN PRN Reason: Pain, severe (8-10) Last Admin: 06/25/17 14:01 Dose: 4 mg Ondansetron HCl (Zofran Inj) 4 mg IVP Q6 PRN PRN Reason: Nausea/Vomiting - Labs Labs: 06/25/17 05:58 06/25/17 05:58 PT 13.6 SECONDS (9.7-12.2) H 06/17/17 05:58 INR 1.2 06/17/17 05:58 APTT 37 SECONDS (21-34) H 06/17/17 05:58 - Head Exam Head Exam: ATRAUMATIC - Eye Exam Eye Exam: Normal appearance - ENT Exam ENT Exam: Mucous Membranes Dry - Respiratory Exam Respiratory Exam: NORMAL BREATHING PATTERN - Cardiovascular Exam Cardiovascular Exam: +S1, +S2 - GI/Abdominal Exam GI & Abdominal Exam: Normal Bowel Sounds Assessment and Plan (1) Sickle cell pain crisis Assessment & Plan: Iv fluids, pain meds, 02 via NC, folic acid s/p PRBC transfusion Status: Acute (2) Iron overload due to repeated red blood cell transfusions Assessment & Plan: minimize transfusion support outpatient chelation Status: Acute (3) Leukocytosis Assessment & Plan: likely reactive to sickle cell Status: Acute (4) Sickle cell anemia Assessment & Plan: outpatient folic acid and chelation Status: Acute
--- NOTE | 2017-06-25 22:49 | CP.PCM.PN ---
Subjective - Date & Time of Evaluation Date of Evaluation: 06/25/17 Time of Evaluation: 22:49 Objective - Vital Signs/Intake and Output Vital Signs (last 24 hours): Temp Pulse Resp BP Pulse Ox 97.9 F 95 H 18 117/79 100 06/25/17 15:00 06/25/17 15:00 06/25/17 15:00 06/25/17 15:00 06/25/17 15:00 - Medications Medications: Current Medications Acetaminophen (Tylenol 325mg Tab) 650 mg PO Q6 PRN PRN Reason: Fever >100.4 F Bisacodyl (Dulcolax) 10 mg HI DAILY PRN PRN Reason: Constipation Diphenhydramine HCl (Benadryl) 25 mg IVP Q3 PRN PRN Reason: Itching / Pruritus Last Admin: 06/25/17 14:00 Dose: 25 mg Folic Acid (Folic Acid) 2 mg PO DAILY AP Last Admin: 06/25/17 10:20 Dose: 2 mg Hydromorphone HCl (Dilaudid) 4 mg PO Q3H PRN PRN Reason: Pain, severe (8-10) Last Admin: 06/25/17 14:01 Dose: 4 mg Ondansetron HCl (Zofran Inj) 4 mg IVP Q6 PRN PRN Reason: Nausea/Vomiting - Labs Labs: 06/25/17 05:58 06/25/17 05:58 PT 13.6 SECONDS (9.7-12.2) H 06/17/17 05:58 INR 1.2 06/17/17 05:58 APTT 37 SECONDS (21-34) H 06/17/17 05:58 Assessment and Plan (1) Sickle cell anemia Status: Acute (2) Leukocytosis Status: Acute (3) Anemia Status: Acute (4) Neurogenic bladder Status: Acute (5) Bilateral hydronephrosis Status: Acute
[2017-06-26 07:10] LABS: BASO # 0.2 K/uL (0.0-0.2); BASO % 1.1 % (0.0-2.0); EOS # 0.6 K/uL (0.0-0.7); EOS % 3.6 % (0.0-4.0); HEMOGLOBIN 7.3 g/dL (11.0-16.0); LYMPH # 3.7 K/uL (1.0-4.3); LYMPH % 20.5 % (20.0-40.0); MEAN CELL VOLUME 90.1 fL (81.0-99.0); MEAN CORPUSCULAR HEMOGLOBIN 30.4 pg (27.0-31.0); MEAN CORPUSCULAR HGB CONC 33.7 g/dL (33.0-37.0); MEAN PLATELET VOLUME 8.9 fL (7.2-11.7); MONO # 1.4 K/uL (0.0-0.8); MONO % 7.7 % (0.0-10.0); NEUT % 67.1 % (50.0-75.0); NRBC % 0.1 % (0.0-2.0); RBC 2.41 Mil/uL (3.80-5.20); RED CELL DISTRIBUTION WIDTH 18.9 % (11.5-14.5); WHITE BLOOD COUNT 17.9 K/uL (4.8-10.8)
[2017-06-26 07:32] LABS: ALB/GLOB RATIO 0.7 (1.0-2.1); ALBUMIN 3.4 g/dL (3.5-5.0); ALT/SGPT 63 U/L (9-52); AST/SGOT 101 U/L (14-36); BLOOD UREA NITROGEN 18 mg/dL (7-17); CALCIUM 8.5 mg/dl (8.6-10.4); GFR AFRICAN-AMERICAN > 60; GFR NON-AFRICAN AMERICAN 56
[2017-06-26 08:29] VITALS: RESP 18; O2SAT 100
[2017-06-26 15:46] VITALS: BP 115/83; PULSE 94; TEMP 98.4
--- NOTE | 2017-06-26 17:30 | CP.PCM.PN ---
Subjective - Date & Time of Evaluation Date of Evaluation: 06/26/17 Time of Evaluation: 11:00 - Subjective Subjective: ALERT, ORIENTEDX3, NO ACUTE PAIN, NO DISTRESS. Objective - Vital Signs/Intake and Output Vital Signs (last 24 hours): Temp Pulse Resp BP Pulse Ox 98.4 F 94 H 18 115/83 100 06/26/17 15:44 06/26/17 15:44 06/26/17 15:44 06/26/17 15:44 06/26/17 15:44 Intake and Output: 06/26/17 06/26/17 06:59 18:59 Intake Total 400 Balance 400 - Labs Labs: 06/26/17 07:00 06/26/17 07:00 PT 13.6 SECONDS (9.7-12.2) H 06/17/17 05:58 INR 1.2 06/17/17 05:58 APTT 37 SECONDS (21-34) H 06/17/17 05:58 Assessment and Plan - Assessment and Plan (Free Text) Assessment: Patient is seen and examined. Alert and orientdx3, denies acute pain. Has chronic UTI possibly secondary to neurogenic bladder and frequent self catheterizations at home. Discussed with DR Alba Hernandez, plan to discharge home today. Advised to follow up in the office in 1 week.
--- NOTE | 2017-06-27 01:05 | CP.PCM.PN ---
Subjective - Date & Time of Evaluation Date of Evaluation: 06/26/17 Time of Evaluation: 16:00 - Subjective Subjective: Feeling better Objective - Vital Signs/Intake and Output Vital Signs (last 24 hours): Temp Pulse Resp BP Pulse Ox 98.4 F 94 H 18 115/83 100 06/26/17 15:44 06/26/17 15:44 06/26/17 15:44 06/26/17 15:44 06/26/17 15:44 Intake and Output: 06/26/17 06/27/17 18:59 06:59 Intake Total 400 Balance 400 - Labs Labs: 06/26/17 07:00 06/26/17 07:00 PT 13.6 SECONDS (9.7-12.2) H 06/17/17 05:58 INR 1.2 06/17/17 05:58 APTT 37 SECONDS (21-34) H 06/17/17 05:58 - Head Exam Head Exam: ATRAUMATIC - Eye Exam Eye Exam: Normal appearance - ENT Exam ENT Exam: Mucous Membranes Dry - Respiratory Exam Respiratory Exam: NORMAL BREATHING PATTERN - Cardiovascular Exam Cardiovascular Exam: +S1, +S2 - GI/Abdominal Exam GI & Abdominal Exam: Normal Bowel Sounds Assessment and Plan (1) Sickle cell pain crisis Assessment & Plan: IV fluids, pain meds, folic acid, 02 via NC s/p PRBC transfusion Status: Acute (2) Iron overload due to repeated red blood cell transfusions Assessment & Plan: minimize transfusion support outpatient chelation Status: Acute (3) Leukocytosis Assessment & Plan: reactive to sickle cell Status: Acute (4) Sickle cell anemia Assessment & Plan: folic acid outpatient chelation Status: Acute
== END 2017-06-26 16:57 | disposition home or self-care (01) | DRG 812 ==
LOC: C.ER 23:12 → C.5S 06-17 03:46 → UNDOADMIN 06-17 03:46
PROVIDERS: ADMIT Internal Medicine Nephrology; ATTEND Internal Medicine Nephrology
PROC: 30233N1 Transfusion of Nonautologous Red Blood Cells into Peripheral Vein, Percutaneous Approach (ICD-10-PCS; 2017-06-24)
PROC: 0TP98DZ Removal of Intraluminal Device from Ureter, Via Natural or Artificial Opening Endoscopic (ICD-10-PCS; principal; 2017-06-25)
PROC: 0T768DZ Dilation of Right Ureter with Intraluminal Device, Via Natural or Artificial Opening Endoscopic (ICD-10-PCS; 2017-06-25)
DX: D57.00 Hb-SS disease with crisis, unspecified (principal); N13.30 Unspecified hydronephrosis; N39.0 Urinary tract infection, site not specified; R16.0 Hepatomegaly, not elsewhere classified; Z88.5 Allergy status to narcotic agent; Z88.8 Allergy status to other drugs, medicaments and biological substances; Z83.2 Family history of diseases of the blood and blood-forming organs and certain disorders involving the immune mechanism; E83.111 Hemochromatosis due to repeated red blood cell transfusions; Z87.440 Personal history of urinary (tract) infections; N31.9 Neuromuscular dysfunction of bladder, unspecified; B95.2 Enterococcus as the cause of diseases classified elsewhere; Z16.21 Resistance to vancomycin; B96.20 Unspecified Escherichia coli [E. coli] as the cause of diseases classified elsewhere; R74.0 Nonspecific elevation of levels of transaminase and lactic acid dehydrogenase [LDH]; Z16.12 Extended spectrum beta lactamase (ESBL) resistance; R33.9 Retention of urine, unspecified

== ENCOUNTER 2017-10-02 02:49 | Inpatient (IN) | payer MEDICARE ==
[2017-10-02 02:50] VITALS: BMI 22.4
[2017-10-02] MEDS ORDERED: Sodium Chloride 0.9% 1,000 ML IV ONE ×2 (03:27→03:30)
--- NOTE | 2017-10-02 03:33 | C.PDOC ---
History Of Present Illness <SaltyArlettewarren - Last Filed: 10/02/17 04:07> <ChongnelidaSonya - Last Filed: 10/02/17 05:29> 36 yo female w/PMhx of SSA come in for evaluation of fever, chills, gradually developed for past 24 hrs associated with diffuse bodyaches. Pt sts, late today developed some dry cough. Otherwise, pt denies headache, leathrgy, sore throat, drooling, dysphagia, dyspnea, SOB, wheezing, V/D, UTI sx. denies recent travel or known sick contact. AT the time of evaluation, appears shaking, in pain. ( Sonya Mcmillan) <RadhacornelioArlettewarren - Last Filed: 10/02/17 04:07> History Per: Patient <SahilsagenelidaSonya - Last Filed: 10/02/17 05:29> Time Seen by Provider: 10/02/17 03:11 Chief Complaint (Nursing): Back Pain Past Medical History Reviewed: Historical Data, Nursing Documentation, Vital Signs - Medical History PMH: Anemia, Migraine, Sickle Cell Disease Denies: Atrial Fibrillation, Hyperthyroidism, Chronic Kidney Disease Surgical History: Cholecystectomy (2003) Family History: States: Unknown Family Hx - Social History Hx Tobacco Use: No Hx Alcohol Use: No Hx Substance Use: No - Immunization History Hx Tetanus Toxoid Vaccination: Yes Hx Influenza Vaccination: Yes Hx Pneumococcal Vaccination: Yes <HipolitoRamilaSonya - Last Filed: 10/02/17 05:29> Vital Signs: Last Vital Signs Temp 103.1 F H 10/02/17 03:16 Pulse 152 H 10/02/17 03:16 Resp 22 10/02/17 03:16 BP 87/63 L 10/02/17 03:16 Pulse Ox 99 10/02/17 03:34 - [facility] Procedures DILATION OF RIGHT URETER WITH INTRALUMINAL DEVICE, ENDO (06/17/17) PACKED CELL TRANSFUSION (07/26/12) REMOVAL OF INTRALUMINAL DEVICE FROM URETER, ENDO (06/17/17) TETANUS TOXOID ADMINIST (11/14/12) TRANSFUSE NONAUT RED BLOOD CELLS IN PERIPH VEIN, PERC (06/17/17) Review Of Systems Except As Marked, All Systems Reviewed And Found Negative. Constitutional: Positive for: Fever, Chills, Malaise Eyes: Negative for: Vision Change ENT: Negative for: Ear Discharge, Nose Discharge, Nose Congestion, Throat Pain Cardiovascular: Negative for: Chest Pain, Palpitations, Orthopnea, Edema, Light Headedness Respiratory: Positive for: Cough. Negative for: Shortness of Breath, Wheezing Gastrointestinal: Positive for: Abdominal Pain. Negative for: Nausea, Vomiting , Diarrhea Genitourinary: Negative for: Dysuria, Frequency, Incontinence Musculoskeletal: Negative for: Neck Pain Neurological: Negative for: Altered Mental Status, Headache <Sonya Mcmillan - Last Filed: 10/02/17 05:29> Physical Exam - Physical Exam Appears: Well, Non-toxic, No Acute Distress Skin: Normal Color, Warm, No Rash Head: Normacephalic Eye(s): bilateral: PERRL Ear(s): Bilateral: Normal Nose: No Flaring, No Discharge Oral Mucosa: Moist, No Drooling Tongue: Normal Appearing Lips: Normal Appearing Throat: No Erythema, No Drooling Neck: Trachea Midline, Supple, Other ((-) meningeal sign) Chest: Symmetrical Cardiovascular: Rhythm Regular (tachy), No Murmur, No JVD Respiratory: No Decreased Breath Sounds, No Accessory Muscle Use, No Stridor, No Wheezing Gastrointestinal/Abdominal: Soft, Tenderness (diffuse), No Organomegaly, No Distention, No Guarding, No Rebound Back: No CVA Tenderness Extremity: Normal ROM, No Pedal Edema, No Deformity, No Swelling Neurological/Psych: Oriented x3, Normal Speech <Sonya Mcmillan - Last Filed: 10/02/17 05:29> ED Course And Treatment ECG: Interpreted By Me, Viewed By Me ECG Rhythm: Sinus Tachycardia (147), Nonspecific Changes Pulse Ox Interpretation: Normal - Radiology CXR Interpretation: Yes: No Acute Disease, Mediastinum, Other (port r chrst, spinal rods, unchanged from 05/09). No: Infiltrates, Fracture, Pnemothorax <[place] - Last Filed: 10/02/17 04:07> - Laboratory Results Result Diagrams: 10/02/17 04:42 Lab Interpretation: Abnormal Urine POC: Negative O2 Sat by Pulse Oximetry: 99 Progress Note: Pt was placed card. monitor, hydration with IVF, oxygen. Pt remained significantly unchanged, still c/o diffuse abdominal pain. Blood owrk review, acute leukocytosis with left shift, H/H- baseline. UA (+) WBC, (+) RBC c/w UTI. Pt has clinical findings c/w fever, UTI r/o acute pyelonephritis, SC crisis. case discussed with pt's PMD and admission arranged to tele. <Sonya Mcmillan - Last Filed: 10/02/17 05:29> Critical Care Time - Critical Care Note Total Time (in mins): 40 Documented critical care: time excludes all time spent performing seperately billable procedures. <Sonya Mcmillan - Last Filed: 10/02/17 05:29> Disposition <[place] - Last Filed: 10/02/17 04:07> - Disposition Disposition Time: 05:23 <Sonya Mcmillan - Last Filed: 10/02/17 05:29> - Disposition Disposition: HOSPITALIZED Condition: FAIR Forms: [facility] ([place]) - Clinical Impression Clinical Impression: Sickle cell pain crisis, Pyelonephritis
[2017-10-02] MEDS ORDERED: Morphine 4 MG/ML VIAL ONE ×4 (04:22→16:53)
[2017-10-02 04:25] LABS: INR 1.6
[2017-10-02] MEDS ORDERED: DiphenhydrAMINE 50 mg/ml Inj ONE ×3 (04:32→16:53)
[2017-10-02 04:40] LABS: HCG,QUALITATIVE URINE NEGATIVE (NEGATIVE); SQUAMOUS EPITHIAL 2 /hpf (0-5); URINE BACTERIA MOD (<OCC); URINE BILIRUBIN NEGATIVE (NEGATIVE); URINE BLOOD 2+ (NEGATIVE); URINE CLARITY Turbid (Clear); URINE COLOR Yellow (YELLOW); URINE GLUCOSE (UA) NORMAL (Normal); URINE LEUKOCYTE ESTERASE 3+ Leu/uL (Negative); URINE PROTEIN 1+ mg/dL (NEGATIVE); URINE UROBILINOGEN NORMAL mg/dL (0.2-1.0); WBC CLUMPS MANY /hpf
[2017-10-02 04:44] LABS: BASO # 0.1 K/uL (0.0-0.2); BASO % 0.3 % (0.0-2.0); EOS # 0.1 K/uL (0.0-0.7); EOS % 0.5 % (0.0-4.0); HEMOGLOBIN 9.3 g/dL (11.0-16.0); LYMPH # 0.5 K/uL (1.0-4.3); LYMPH % 1.9 % (20.0-40.0); MEAN CELL VOLUME 85.8 fL (81.0-99.0); MEAN CORPUSCULAR HGB CONC 33.8 g/dL (33.0-37.0); MEAN PLATELET VOLUME 9.4 fL (7.2-11.7); MONO # 0.6 K/uL (0.0-0.8); MONO % 2.2 % (0.0-10.0); NEUT # 27.6 K/uL (1.8-7.0); NEUT % 95.1 % (50.0-75.0); PLATELET COUNT 131 K/uL (130-400); RBC 3.22 Mil/uL (3.80-5.20); RED CELL DISTRIBUTION WIDTH 15.6 % (11.5-14.5)
[2017-10-02 05:01] LABS: VENOUS BLOOD GAS BASE EXCESS -8.6 mmol/L (0.0-2.0); VENOUS BLOOD GAS PCO2 22 mmHg (40-60); VENOUS BLOOD GAS PO2 105 mm/Hg (30-55); VENOUS BLOOD PH 7.41 (7.32-7.43)
[2017-10-02 05:16] LABS: BANDS 6 % (0-2); EOSINOPHIL 2 % (0-4); LYMPHOCYTE 3 % (20-40); MONOCYTE 2 % (0-10); NEUTROPHIL 87 % (50-75); PLATELET ESTIMATE NORMAL (NORMAL); TOTAL CELLS COUNTED 100
[2017-10-02] MEDS ORDERED: Piperacill/Tazo 3.375gm in Dex 3.375 GM/50 ML BAG IVPB STA (05:21)
[2017-10-02 06:15] LABS: VENOUS BLOOD GAS PCO2 32 mmHg (40-60); VENOUS BLOOD GAS PO2 46 mm/Hg (30-55); VENOUS BLOOD PH 7.31 (7.32-7.43)
[2017-10-02 08:04] LABS: ALB/GLOB RATIO 0.7 (1.0-2.1); ALBUMIN 2.7 g/dL (3.5-5.0); CALCIUM 7.5 mg/dl (8.6-10.4)
[2017-10-02] MEDS ORDERED: DiphenhydrAMINE 50 mg/ml Inj IVP STA (11:00)
--- NOTE | 2017-10-02 16:23 | CP.PCM.HP ---
Past Patient History - Infectious Disease Hx of Infectious Diseases: None - Past Medical History & Family History Past Medical History?: Yes - Past Social History Smoking Status: Never Smoked - CARDIAC Hx Atrial Fibrillation: No - NEUROLOGICAL Hx Migraine: Yes - RENAL Hx Chronic Kidney Disease: No - ENDOCRINE/METABOLIC Hx Hyperthyroidism: No - HEMATOLOGICAL/ONCOLOGICAL Hx Anemia: Yes Hx Sickle Cell Disease: Yes - INTEGUMENTARY Hx Dermatological Problems: No - MUSCULOSKELETAL/RHEUMATOLOGICAL Hx Musculoskeletal Disorders: No Hx Falls: No - GASTROINTESTINAL Hx Gastrointestinal Disorders: No - GENITOURINARY/GYNECOLOGICAL Hx Genitourinary Disorders: Yes Hx Urinary Tract Infection: Yes Other/Comment: ureter stent 06/16/17 - PSYCHIATRIC Hx Substance Use: No - SURGICAL HISTORY Hx Cholecystectomy: Yes (2003) - ANESTHESIA Hx Anesthesia: Yes Hx Anesthesia Reactions: No Hx Malignant Hyperthermia: No Meds Allergies/Adverse Reactions: Allergies Allergy/AdvReac Type Severity Reaction Status Date / Time droperidol Allergy Verified 05/02/17 17:54 tramadol Allergy Verified 05/02/17 17:54 inapsine Allergy RASH Uncoded 05/02/17 17:54 Physical Exam - Constitutional Appears: Well - Head Exam Head Exam: ATRAUMATIC, NORMAL INSPECTION, NORMOCEPHALIC - Eye Exam Eye Exam: EOMI, Normal appearance, PERRL Pupil Exam: NORMAL ACCOMODATION, PERRL - ENT Exam ENT Exam: Mucous Membranes Moist, Normal Exam - Neck Exam Neck exam: Positive for: Normal Inspection - Respiratory Exam Respiratory Exam: Decreased Breath Sounds - Cardiovascular Exam Cardiovascular Exam: REGULAR RHYTHM, +S1, +S2 - GI/Abdominal Exam GI & Abdominal Exam: Diminished Bowel Sounds, Soft - Rectal Exam Rectal Exam: Deferred Results - Vital Signs Recent Vital Signs: Last Vital Signs Temp 98.3 F 10/02/17 09:20 Pulse 104 H 10/02/17 09:20 Resp 20 10/02/17 09:20 BP 101/65 10/02/17 12:11 Pulse Ox 98 10/02/17 12:11 - Labs Result Diagrams: 10/02/17 04:42 10/02/17 07:33 Labs: Laboratory Results - last 24 hr 10/02/17 10/02/17 10/02/17 04:00 04:00 04:23 WBC Cancelled RBC Cancelled Hgb Cancelled Hct Cancelled MCV Cancelled MCH Cancelled MCHC Cancelled RDW Cancelled Plt Count Cancelled MPV Cancelled Neut % (Auto) Cancelled Lymph % (Auto) Cancelled Phillips % (Auto) Cancelled Eos % (Auto) Cancelled Baso % (Auto) Cancelled Neut # (Auto) Cancelled Lymph # (Auto) Cancelled Phillips # (Auto) Cancelled Eos # (Auto) Cancelled Baso # (Auto) Cancelled Neutrophils % (Manual) Cancelled Band Neutrophils % Cancelled Lymphocytes % (Manual) Cancelled Reactive Lymphs % Cancelled Monocytes % (Manual) Cancelled Eosinophils % (Manual) Cancelled Basophils % (Manual) Cancelled Metamyelocytes % Cancelled Myelocytes % Cancelled Promyelocytes % Cancelled Blast Cells % Cancelled Plasma Cell % (Manual) Cancelled Nucleated RBC % Cancelled Hypersegmented Polys Cancelled Smudge Cells Cancelled Toxic Granulation Cancelled Dohle Bodies Cancelled Jenifer Rods Cancelled Platelet Estimate Cancelled Plt Clumps, EDTA Cancelled Large Platelets Cancelled Giant Platelets Cancelled RBC Morphology Cancelled Polychromasia Cancelled Hypochromasia (manual) Cancelled Poikilocytosis (manual Cancelled Basophilic Stippling Cancelled Anisocytosis (manual) Cancelled Microcytosis (manual) Cancelled Macrocytosis (manual) Cancelled Spherocytes Cancelled Sickle Cells Cancelled Target Cells Cancelled Tear Drop Cells Cancelled Ovalocytes Cancelled Stomatocytes Cancelled Helmet Cells Cancelled [place] Bodies Cancelled Sonya Cells Cancelled Acanthocytes (Spur) Cancelled Rouleaux Cancelled Schistocytes Cancelled Retic Count PT 17.0 H INR 1.6 APTT 40 H pO2 105 H VBG pH 7.41 VBG pCO2 22 L VBG HCO3 18.2 VBG Total CO2 14.6 L VBG O2 Sat (Calc) 100.5 H VBG Base Excess -8.6 L VBG Potassium 3.5 L Sodium 141.0 Chloride 114.0 H Glucose 75 Lactate 1.5 Potassium Carbon Dioxide Anion Gap BUN Creatinine Est GFR ( Amer) Est GFR (Non-Af Amer) Random Glucose Calcium Phosphorus Magnesium Total Bilirubin AST ALT Alkaline Phosphatase Total Protein Albumin Globulin Albumin/Globulin Ratio Venous Blood Potassium 3.5 L Urine Color Urine Clarity Urine pH Ur Specific Keavy Urine Protein Urine Glucose (UA) Urine Ketones Urine Blood Urine Nitrate Urine Bilirubin Urine Urobilinogen Ur Leukocyte Esterase Urine WBC (Auto) Urine RBC (Auto) Urine WBC Clumps (Auto) Ur Squamous Epith Cells Urine Bacteria Urine HCG, Qual 10/02/17 10/02/17 10/02/17 04:35 04:40 04:42 WBC 29.0 H D RBC 3.22 L Hgb 9.3 L D Hct 27.6 L MCV 85.8 D MCH 29.0 MCHC 33.8 RDW 15.6 H Plt Count 131 MPV 9.4 Neut % (Auto) 95.1 H Lymph % (Auto) 1.9 L Phillips % (Auto) 2.2 Eos % (Auto) 0.5 Baso % (Auto) 0.3 Neut # (Auto) 27.6 H Lymph # (Auto) 0.5 L Phillips # (Auto) 0.6 Eos # (Auto) 0.1 Baso # (Auto) 0.1 Neutrophils % (Manual) 87 H Band Neutrophils % 6 H Lymphocytes % (Manual) 3 L Reactive Lymphs % Monocytes % (Manual) 2 Eosinophils % (Manual) 2 Basophils % (Manual) Metamyelocytes % Myelocytes % Promyelocytes % Blast Cells % Plasma Cell % (Manual) Nucleated RBC % Hypersegmented Polys Smudge Cells Toxic Granulation Dohle Bodies Jenifer Rods Platelet Estimate Normal Plt Clumps, EDTA Large Platelets Giant Platelets RBC Morphology Polychromasia Hypochromasia (manual) Poikilocytosis (manual Basophilic Stippling Anisocytosis (manual) Microcytosis (manual) Macrocytosis (manual) Spherocytes Sickle Cells Target Cells Tear Drop Cells Ovalocytes Stomatocytes Helmet Cells [place] Bodies [place] Cells Acanthocytes (Spur) Rouleaux Schistocytes Retic Count 1.0 D PT INR APTT pO2 VBG pH VBG pCO2 VBG HCO3 VBG Total CO2 VBG O2 Sat (Calc) VBG Base Excess VBG Potassium Sodium Chloride Glucose Lactate Potassium Carbon Dioxide Anion Gap BUN Creatinine Est GFR ( Amer) Est GFR (Non-Af Amer) Random Glucose Calcium Phosphorus Magnesium Total Bilirubin AST ALT Alkaline Phosphatase Total Protein Albumin Globulin Albumin/Globulin Ratio Venous Blood Potassium Urine Color Yellow Urine Clarity Turbid Urine pH 7.0 Ur Specific Keavy 1.008 Urine Protein 1+ H Urine Glucose (UA) Normal Urine Ketones Negative Urine Blood 2+ H Urine Nitrate Negative Urine Bilirubin Negative Urine Urobilinogen Normal Ur Leukocyte Esterase 3+ H Urine WBC (Auto) 4412 H Urine RBC (Auto) 8 H Urine WBC Clumps (Auto) Many H Ur Squamous Epith Cells 2 Urine Bacteria Mod H Urine HCG, Qual Negative 10/02/17 10/02/17 10/02/17 06:08 07:33 07:33 WBC RBC Hgb Hct MCV MCH MCHC RDW Plt Count MPV Neut % (Auto) Lymph % (Auto) Phillips % (Auto) Eos % (Auto) Baso % (Auto) Neut # (Auto) Lymph # (Auto) Phillips # (Auto) Eos # (Auto) Baso # (Auto) Neutrophils % (Manual) Band Neutrophils % Lymphocytes % (Manual) Reactive Lymphs % Monocytes % (Manual) Eosinophils % (Manual) Basophils % (Manual) Metamyelocytes % Myelocytes % Promyelocytes % Blast Cells % Plasma Cell % (Manual) Nucleated RBC % Hypersegmented Polys Smudge Cells Toxic Granulation Dohle Bodies Jenifer Rods Platelet Estimate Plt Clumps, EDTA Large Platelets Giant Platelets RBC Morphology Polychromasia Hypochromasia (manual) Poikilocytosis (manual Basophilic Stippling Anisocytosis (manual) Microcytosis (manual) Macrocytosis (manual) Spherocytes Sickle Cells Target Cells Tear Drop Cells Ovalocytes Stomatocytes Helmet Cells [place] Bodies [place] Cells Acanthocytes (Spur) Rouleaux Schistocytes Retic Count PT INR APTT pO2 46 VBG pH 7.31 L VBG pCO2 32 L VBG HCO3 17.4 VBG Total CO2 17.1 L VBG O2 Sat (Calc) 88.6 H VBG Base Excess -9.0 L VBG Potassium 3.4 L Sodium 138.0 139 Chloride 114.0 H 112 H Glucose 87 Lactate 1.0 Potassium 4.2 Carbon Dioxide 18 L Anion Gap 14 BUN 23 H Creatinine 1.3 H Est GFR ( Amer) 55 Est GFR (Non-Af Amer) 46 Random Glucose 112 H Calcium 7.5 L Phosphorus 2.4 L Magnesium 1.4 L Total Bilirubin 2.3 H AST 122 H D ALT 89 H D Alkaline Phosphatase 173 H Total Protein 6.5 Albumin 2.7 L D Globulin 3.8 Albumin/Globulin Ratio 0.7 L Venous Blood Potassium 3.4 L Urine Color Urine Clarity Urine pH Ur Specific Keavy Urine Protein Urine Glucose (UA) Urine Ketones Urine Blood Urine Nitrate Urine Bilirubin Urine Urobilinogen Ur Leukocyte Esterase Urine WBC (Auto) Urine RBC (Auto) Urine WBC Clumps (Auto) Ur Squamous Epith Cells Urine Bacteria Urine HCG, Qual
[2017-10-02] MEDS: DiphenhydrAMINE 50 mg/ml Inj IVP PRN ×3 (16:58→20:50)
[2017-10-02] MEDS ORDERED: Piperacillin/Tazobact 3.375 gm 100 ML IVPB ONE (17:11)
[2017-10-02] MEDS: Piperacill/Tazo 3.375gm in Dex 3.375 GM/50 ML BAG IVPB SCH (17:22)
[2017-10-02] MEDS ORDERED: Vancomycin 1 GM in Sodium Chloride 0.9% 200 ML IVPB SCH (18:00)
[2017-10-02] MEDS: Sodium Chloride 0.9% 1,000 ML IV SCH (20:00)
[2017-10-02] MEDS: Magnesium Sulfate 1 gm in D5W 1 GM/100 ML BAG IVPB SCH ×2 (20:00→21:47)
--- NOTE | 2017-10-02 20:04 | CP.PCM.CON ---
History of Present Illness - History of Present Illness History of Present Illness: INFECTIOUS DISEASE CONSULT; HPI 36-year-old female, with history of sickle cell anemia and multiple sickle cell crisis who comes to the ER for evaluation of fever chills and generalized body aches which she states she developed late today. Patient also complains of some dry cough. Patient denies any sore throat, dysphagia , dyspnea, shortness of breath. Patient denies any chest pains. Patient denies any diarrhea, nausea vomiting or dysuria. Patient has history of neurogenic bladder and history of bilateral ureteral stents with history off hydronephrosis bilaterally. She often has history off recurrent UTIs and catheterizes herself 2 or 3 times a day. Patient urinalysis was found to be turbid and foul-smelling with WBCs off more than 4000 with 3+ leukocytes. Also noted that patient had leukocytosis of 29.0. Patient had a fever of 103 on admission and was having shaking chills. 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 INFECTIOUS DISEASE CONSULT REQUESTED BY PMD FOR acute pyelonephritis and leukocytosis. patient denies any recent travel or any known sick contacts. PMH: Anemia, Migraine, Sickle Cell Disease Surgical History: Cholecystectomy (2003), B/L INTERNAL STENTS FOR B/L HYDRONEPHROSIS . Denies: Pacemaker Allergy; droperidol, tramadol. Social History Hx Tobacco Use: No Hx Alcohol Use: No Hx Substance Use: No - Immunization History Hx Tetanus Toxoid Vaccination: Yes Hx Influenza Vaccination: Yes Hx Pneumococcal Vaccination: Yes Review of Systems - Constitutional Constitutional: Chills, Fatigue, Fever - EENT Eyes: absent: Blurred Vision Ears: absent: Dizziness Nose/Mouth/Throat: absent: Mouth Lesions, Odynophagia, Sore Throat - Cardiovascular Cardiovascular: absent: Chest Pain, Dyspnea - Respiratory Respiratory: Cough. absent: Dyspnea, Hemoptysis - Gastrointestinal Gastrointestinal: absent: Abdominal Pain, Nausea, Vomiting - Genitourinary Genitourinary: Difficulty Urinating, Pyuria, Urinary Hesitance, Freq UTI, Hx / Renal Surgery - Reproductive: Female Reproductive:Female: Menses 1-7 Days, Menses Variable. absent: Vaginal Discharge - Musculoskeletal Musculoskeletal: Back Pain, Loss of Height, Myalgias - Neurological Neurological: absent: Headaches - Hematologic/Lymphatic Hematologic: As Per HPI. absent: Lymphadenopathy Past Patient History - Infectious Disease Hx of Infectious Diseases: None - Past Medical History & Family History Past Medical History?: Yes - Past Social History Smoking Status: Never Smoked - CARDIAC Hx Atrial Fibrillation: No - NEUROLOGICAL Hx Migraine: Yes - RENAL Hx Chronic Kidney Disease: No - ENDOCRINE/METABOLIC Hx Hyperthyroidism: No - HEMATOLOGICAL/ONCOLOGICAL Hx Anemia: Yes Hx Sickle Cell Disease: Yes - INTEGUMENTARY Hx Dermatological Problems: No - MUSCULOSKELETAL/RHEUMATOLOGICAL Hx Musculoskeletal Disorders: No Hx Falls: No - GASTROINTESTINAL Hx Gastrointestinal Disorders: No - GENITOURINARY/GYNECOLOGICAL Hx Genitourinary Disorders: Yes Hx Urinary Tract Infection: Yes Other/Comment: ureter stent 06/16/17 - PSYCHIATRIC Hx Substance Use: No - SURGICAL HISTORY Hx Cholecystectomy: Yes (2003) - ANESTHESIA Hx Anesthesia: Yes Hx Anesthesia Reactions: No Hx Malignant Hyperthermia: No Meds Allergies/Adverse Reactions: Allergies Allergy/AdvReac Type Severity Reaction Status Date / Time droperidol Allergy Verified 05/02/17 17:54 tramadol Allergy Verified 05/02/17 17:54 inapsine Allergy RASH Uncoded 05/02/17 17:54 - Medications Medications: Current Medications Diphenhydramine HCl (Benadryl) 50 mg IVP Q3H PRN PRN Reason: Allergy symptoms Last Admin: 10/02/17 16:58 Dose: 50 mg Piperacillin Sod/Tazobactam Sod (Zosyn 3.375 Gm Iv Premix) 3.375 gm in 50 mls @ 100 mls/hr IVPB Q8H AP PRN Reason: Protocol Last Admin: 10/02/17 17:22 Dose: 100 mls/hr Vancomycin HCl 1 gm/ Sodium (Chloride) 200 mls @ 166.7 mls/hr IVPB Q24H AP PRN Reason: Protocol Last Admin: 10/02/17 18:53 Dose: 166.7 mls/hr Sodium Chloride (Sodium Chloride 0.9%) 1,000 mls @ 75 mls/hr IV .[id number] [facility] Magnesium Sulfate/Dextrose (Magnesium Sulfate 1 Gm/100 Ml D5w) 1 gm in 100 mls @ 300 mls/hr IVPB Q30M [facility] Stop: 10/02/17 20:37 Magnesium Sulfate/Dextrose (Magnesium Sulfate 1 Gm/100 Ml D5w) 1 gm in 100 mls @ 300 mls/hr IVPB Q30M [facility] Stop: 10/03/17 10:49 Morphine Sulfate (Morphine) 4 mg IVP Q3H PRN PRN Reason: Pain, severe (8-10) Last Admin: 10/02/17 16:57 Dose: 4 mg Physical Exam - Constitutional Appears: No Acute Distress - Head Exam Head Exam: NORMAL INSPECTION - Eye Exam Eye Exam: EOMI, PERRL - ENT Exam ENT Exam: Normal Oropharynx - Neck Exam Neck exam: Positive for: Normal Inspection. Negative for: Meningismus - Respiratory Exam Respiratory Exam: Clear to Auscultation Bilateral, NORMAL BREATHING PATTERN - Cardiovascular Exam Cardiovascular Exam: Tachycardia, REGULAR RHYTHM, +S1, +S2 - GI/Abdominal Exam GI & Abdominal Exam: Normal Bowel Sounds, Soft - Extremities Exam Extremities exam: Positive for: normal capillary refill, pedal edema, pedal pulses present. Negative for: calf tenderness - Neurological Exam Neurological exam: Alert, CN II-XII Intact, Oriented x3, Reflexes Normal - Psychiatric Exam Psychiatric exam: Depressed - Skin Skin Exam: Normal Color, Warm Results - Vital Signs Recent Vital Signs: Last Vital Signs Temp 99.2 F 10/02/17 16:58 Pulse 104 H 10/02/17 09:20 Resp 20 10/02/17 09:20 BP 101/65 10/02/17 12:11 Pulse Ox 98 10/02/17 12:11 - Labs Result Diagrams: 10/02/17 04:42 10/02/17 07:33 Labs: Laboratory Results - last 24 hr 10/02/17 10/02/17 10/02/17 04:00 04:00 04:23 WBC Cancelled RBC Cancelled Hgb Cancelled Hct Cancelled MCV Cancelled MCH Cancelled MCHC Cancelled RDW Cancelled Plt Count Cancelled MPV Cancelled Neut % (Auto) Cancelled Lymph % (Auto) Cancelled [place] % (Auto) Cancelled Eos % (Auto) Cancelled Baso % (Auto) Cancelled Neut # (Auto) Cancelled Lymph # (Auto) Cancelled [place] # (Auto) Cancelled Eos # (Auto) Cancelled Baso # (Auto) Cancelled Neutrophils % (Manual) Cancelled Band Neutrophils % Cancelled Lymphocytes % (Manual) Cancelled Reactive Lymphs % Cancelled Monocytes % (Manual) Cancelled Eosinophils % (Manual) Cancelled Basophils % (Manual) Cancelled Metamyelocytes % Cancelled Myelocytes % Cancelled Promyelocytes % Cancelled Blast Cells % Cancelled Plasma Cell % (Manual) Cancelled Nucleated RBC % Cancelled Hypersegmented Polys Cancelled Smudge Cells Cancelled Toxic Granulation Cancelled Dohle Bodies Cancelled Jenifer Rods Cancelled Platelet Estimate Cancelled Plt Clumps, EDTA Cancelled Large Platelets Cancelled Giant Platelets Cancelled RBC Morphology Cancelled Polychromasia Cancelled Hypochromasia (manual) Cancelled Poikilocytosis (manual Cancelled Basophilic Stippling Cancelled Anisocytosis (manual) Cancelled Microcytosis (manual) Cancelled Macrocytosis (manual) Cancelled Spherocytes Cancelled Sickle Cells Cancelled Target Cells Cancelled Tear Drop Cells Cancelled Ovalocytes Cancelled Stomatocytes Cancelled Helmet Cells Cancelled [place] Bodies Cancelled [place] Cells Cancelled Acanthocytes (Spur) Cancelled Rouleaux Cancelled Schistocytes Cancelled Retic Count PT 17.0 H INR 1.6 APTT 40 H pO2 105 H VBG pH 7.41 VBG pCO2 22 L VBG HCO3 18.2 VBG Total CO2 14.6 L VBG O2 Sat (Calc) 100.5 H VBG Base Excess -8.6 L VBG Potassium 3.5 L Sodium 141.0 Chloride 114.0 H Glucose 75 Lactate 1.5 Potassium Carbon Dioxide Anion Gap BUN Creatinine Est GFR ( Amer) Est GFR (Non-Af Amer) Random Glucose Calcium Phosphorus Magnesium Total Bilirubin AST ALT Alkaline Phosphatase Total Protein Albumin Globulin Albumin/Globulin Ratio Venous Blood Potassium 3.5 L Urine Color Urine Clarity Urine pH Ur Specific [place] Urine Protein Urine Glucose (UA) Urine Ketones Urine Blood Urine Nitrate Urine Bilirubin Urine Urobilinogen Ur Leukocyte Esterase Urine WBC (Auto) Urine RBC (Auto) Urine WBC Clumps (Auto) Ur Squamous Epith Cells Urine Bacteria Urine HCG, Qual 10/02/17 10/02/17 10/02/17 04:35 04:40 04:42 WBC 29.0 H D RBC 3.22 L Hgb 9.3 L D Hct 27.6 L MCV 85.8 D MCH 29.0 MCHC 33.8 RDW 15.6 H Plt Count 131 MPV 9.4 Neut % (Auto) 95.1 H Lymph % (Auto) 1.9 L [place] % (Auto) 2.2 Eos % (Auto) 0.5 Baso % (Auto) 0.3 Neut # (Auto) 27.6 H Lymph # (Auto) 0.5 L [place] # (Auto) 0.6 Eos # (Auto) 0.1 Baso # (Auto) 0.1 Neutrophils % (Manual) 87 H Band Neutrophils % 6 H Lymphocytes % (Manual) 3 L Reactive Lymphs % Monocytes % (Manual) 2 Eosinophils % (Manual) 2 Basophils % (Manual) Metamyelocytes % Myelocytes % Promyelocytes % Blast Cells % Plasma Cell % (Manual) Nucleated RBC % Hypersegmented Polys Smudge Cells Toxic Granulation Dohle Bodies Jenifer Rods Platelet Estimate Normal Plt Clumps, EDTA Large Platelets Giant Platelets RBC Morphology Polychromasia Hypochromasia (manual) Poikilocytosis (manual Basophilic Stippling Anisocytosis (manual) Microcytosis (manual) Macrocytosis (manual) Spherocytes Sickle Cells Target Cells Tear Drop Cells Ovalocytes Stomatocytes Helmet Cells [place] Bodies [place] Cells Acanthocytes (Spur) Rouleaux Schistocytes Retic Count 1.0 D PT INR APTT pO2 VBG pH VBG pCO2 VBG HCO3 VBG Total CO2 VBG O2 Sat (Calc) VBG Base Excess VBG Potassium Sodium Chloride Glucose Lactate Potassium Carbon Dioxide Anion Gap BUN Creatinine Est GFR ( Amer) Est GFR (Non-Af Amer) Random Glucose Calcium Phosphorus Magnesium Total Bilirubin AST ALT Alkaline Phosphatase Total Protein Albumin Globulin Albumin/Globulin Ratio Venous Blood Potassium Urine Color Yellow Urine Clarity Turbid Urine pH 7.0 Ur Specific [place] 1.008 Urine Protein 1+ H Urine Glucose (UA) Normal Urine Ketones Negative Urine Blood 2+ H Urine Nitrate Negative Urine Bilirubin Negative Urine Urobilinogen Normal Ur Leukocyte Esterase 3+ H Urine WBC (Auto) 4412 H Urine RBC (Auto) 8 H Urine WBC Clumps (Auto) Many H Ur Squamous Epith Cells 2 Urine Bacteria Mod H Urine HCG, Qual Negative 10/02/17 10/02/17 10/02/17 06:08 07:33 07:33 WBC RBC Hgb Hct MCV MCH MCHC RDW Plt Count MPV Neut % (Auto) Lymph % (Auto) [place] % (Auto) Eos % (Auto) Baso % (Auto) Neut # (Auto) Lymph # (Auto) [place] # (Auto) Eos # (Auto) Baso # (Auto) Neutrophils % (Manual) Band Neutrophils % Lymphocytes % (Manual) Reactive Lymphs % Monocytes % (Manual) Eosinophils % (Manual) Basophils % (Manual) Metamyelocytes % Myelocytes % Promyelocytes % Blast Cells % Plasma Cell % (Manual) Nucleated RBC % Hypersegmented Polys Smudge Cells Toxic Granulation Dohle Bodies Jenifer Rods Platelet Estimate Plt Clumps, EDTA Large Platelets Giant Platelets RBC Morphology Polychromasia Hypochromasia (manual) Poikilocytosis (manual Basophilic Stippling Anisocytosis (manual) Microcytosis (manual) Macrocytosis (manual) Spherocytes Sickle Cells Target Cells Tear Drop Cells Ovalocytes Stomatocytes Helmet Cells [place] Bodies [place] Cells Acanthocytes (Spur) Rouleaux Schistocytes Retic Count PT INR APTT pO2 46 VBG pH 7.31 L VBG pCO2 32 L VBG HCO3 17.4 VBG Total CO2 17.1 L VBG O2 Sat (Calc) 88.6 H VBG Base Excess -9.0 L VBG Potassium 3.4 L Sodium 138.0 139 Chloride 114.0 H 112 H Glucose 87 Lactate 1.0 Potassium 4.2 Carbon Dioxide 18 L Anion Gap 14 BUN 23 H Creatinine 1.3 H Est GFR ( Amer) 55 Est GFR (Non-Af Amer) 46 Random Glucose 112 H Calcium 7.5 L Phosphorus 2.4 L Magnesium 1.4 L Total Bilirubin 2.3 H AST 122 H D ALT 89 H D Alkaline Phosphatase 173 H Total Protein 6.5 Albumin 2.7 L D Globulin 3.8 Albumin/Globulin Ratio 0.7 L Venous Blood Potassium 3.4 L Urine Color Urine Clarity Urine pH Ur Specific [place] Urine Protein Urine Glucose (UA) Urine Ketones Urine Blood Urine Nitrate Urine Bilirubin Urine Urobilinogen Ur Leukocyte Esterase Urine WBC (Auto) Urine RBC (Auto) Urine WBC Clumps (Auto) Ur Squamous Epith Cells Urine Bacteria Urine HCG, Qual - Imaging and Cardiology Chest x-ray Status: Report reviewed by me (NAD.) Assessment & Plan (1) Fever Status: Acute (2) Pyelonephritis Status: Acute (3) Leukocytosis Status: Acute (4) Sickle cell pain crisis Status: Acute (5) Neurogenic bladder Status: Acute - Assessment and Plan (Free Text) Plan: PLAN PANCULTURES. UA URINE CULTURE. AGREE WITH iv ZOSYN 3.375 EVERY 8 HOURLY FOR BR[employer] C[employer]AGE FOR UTI. 01/09 ADD IV GENTAMICIN 120MG IVPB X1 DOSE TODAY PATIENT HAS HISTORY OF ESBL ECOLI. 10/02/17 DC IV VANCOMYCIN. START iv ZYVOX 600 MG iv PIGGYBACK EVERY 12 HOURLY PATIENT HAS HISTORY OFF VRE ALSO.10/02/17 CONTACT PRECAUTIONS. fOLLOW-UP CULTURES TO ADJUST ANTIBIOTICS. FOLLOW-UP RENAL FUNCTIONS CLOSELY. WILL FOLLOW ALONG WITH YOU AND MAKE RECOMMENDATIONS NEEDED.
--- NOTE | 2017-10-02 21:19 | RAD ---
Date of service: 10/02/2017 HISTORY: Sepsis Patient COMPARISON: Comparison is made with 05/10/2017 FINDINGS: LUNGS: No evidence of new infiltrate or consolidation in the lungs. PLEURA: No significant pleural effusion identified, no pneumothorax apparent. CARDIOVASCULAR: The heart is normal in size. Right-sided Infusaport is seen in place. OSSEOUS STRUCTURES: The patient is again status post hardware insertion at the thoracic and upper lumbar spine. VISUALIZED UPPER ABDOMEN: Normal. OTHER FINDINGS: None. IMPRESSION: No active disease. A significant interval change noted.
[2017-10-02] MEDS ORDERED: Linezolid 600 mg in D5W 300 ml 600 MG/300 ML BAG IVPB SCH (22:00)
[2017-10-03] MEDS: DiphenhydrAMINE 50 mg/ml Inj IVP PRN ×8 (00:03→23:14)
[2017-10-03] MEDS: Linezolid 600 mg in D5W 300 ml 600 MG/300 ML BAG IVPB SCH ×3 (02:00→22:27)
[2017-10-03] MEDS: Piperacill/Tazo 3.375gm in Dex 3.375 GM/50 ML BAG IVPB SCH ×3 (02:00→16:40)
[2017-10-03 08:40] LABS: BASO # 0.2 K/uL (0.0-0.2); HEMOGLOBIN 7.4 g/dL (11.0-16.0); LYMPH # 3.4 K/uL (1.0-4.3); MONO # 1.6 K/uL (0.0-0.8)
[2017-10-03 08:53] LABS: ALB/GLOB RATIO 0.7 (1.0-2.1); ALBUMIN 2.7 g/dL (3.5-5.0); CALCIUM 7.7 mg/dl (8.6-10.4)
[2017-10-03 08:56] LABS: BASO % 0.8 % (0.0-2.0); EOS # 0.7 K/uL (0.0-0.7); EOS % 3.2 % (0.0-4.0); MEAN CELL VOLUME 86.4 fL (81.0-99.0); MEAN CORPUSCULAR HGB CONC 33.6 g/dL (33.0-37.0); MEAN PLATELET VOLUME 10.2 fL (7.2-11.7); RBC 2.56 Mil/uL (3.80-5.20); RED CELL DISTRIBUTION WIDTH 16.2 % (11.5-14.5); WHITE BLOOD COUNT 22.9 K/uL (4.8-10.8)
[2017-10-03] MEDS: Sodium Chloride 0.9% 1,000 ML IV SCH ×3 (09:28→22:23)
[2017-10-03] MEDS: Magnesium Sulfate 1 gm in D5W 1 GM/100 ML BAG IVPB SCH ×2 (10:33→11:16)
--- NOTE | 2017-10-03 13:27 | CP.PCM.PN ---
Subjective - Date & Time of Evaluation Date of Evaluation: 10/03/17 Time of Evaluation: 10:45 - Subjective Subjective: clinically same Objective - Vital Signs/Intake and Output Vital Signs (last 24 hours): Temp Pulse Resp BP Pulse Ox 98.2 F 95 H 20 107/64 98 10/03/17 07:00 10/03/17 12:47 10/03/17 07:00 10/03/17 12:47 10/03/17 07:00 Intake and Output: 10/03/17 10/03/17 06:59 18:59 Intake Total 900 Output Total 1200 Balance -300 - Medications Medications: Current Medications Acetaminophen (Tylenol 325mg Tab) 650 mg PO Q6 PRN PRN Reason: Fever >100.4 F Last Admin: 10/02/17 22:44 Dose: 650 mg Diphenhydramine HCl (Benadryl) 50 mg IVP Q3H PRN PRN Reason: Allergy symptoms Last Admin: 10/03/17 12:48 Dose: 50 mg Piperacillin Sod/Tazobactam Sod (Zosyn 3.375 Gm Iv Premix) 3.375 gm in 50 mls @ 100 mls/hr IVPB Q8H AP PRN Reason: Protocol Last Admin: 10/03/17 09:20 Dose: 100 mls/hr Sodium Chloride (Sodium Chloride 0.9%) 1,000 mls @ 75 mls/hr IV .[id number] AP Last Admin: 10/03/17 09:28 Dose: Not Given Linezolid (Zyvox 600mg/300ml D5w) 600 mg in 300 mls @ 200 mls/hr IVPB Q12H AP PRN Reason: Protocol Last Admin: 10/03/17 12:21 Dose: 200 mls/hr Morphine Sulfate (Morphine) 4 mg IVP Q3H PRN PRN Reason: Pain, severe (8-10) Last Admin: 10/03/17 12:48 Dose: 4 mg Ondansetron HCl (Zofran Inj) 4 mg IVP Q8H PRN PRN Reason: Nausea/Vomiting Last Admin: 10/03/17 10:34 Dose: 4 mg - Labs Labs: 10/03/17 08:28 10/03/17 08:28 PT 17.0 SECONDS (9.7-12.2) H 10/02/17 04:23 INR 1.6 10/02/17 04:23 APTT 40 SECONDS (21-34) H 10/02/17 04:23 - Constitutional Appears: Well - Head Exam Head Exam: ATRAUMATIC, NORMAL INSPECTION, NORMOCEPHALIC - Eye Exam Eye Exam: EOMI, Normal appearance, PERRL Pupil Exam: NORMAL ACCOMODATION, PERRL - ENT Exam ENT Exam: Mucous Membranes Moist, Normal Exam - Neck Exam Neck Exam: Full ROM, Normal Inspection. absent: Lymphadenopathy - Respiratory Exam Respiratory Exam: Decreased Breath Sounds - Cardiovascular Exam Cardiovascular Exam: REGULAR RHYTHM, +S1, +S2 - GI/Abdominal Exam GI & Abdominal Exam: Soft, Diminished Bowel Sounds - Rectal Exam Rectal Exam: Deferred
[2017-10-04] MEDS: Piperacill/Tazo 3.375gm in Dex 3.375 GM/50 ML BAG IVPB SCH ×3 (01:01→18:00)
[2017-10-04] MEDS: Morphine 4 MG/ML VIAL IVP PRN ×7 (02:22→21:11)
[2017-10-04] MEDS: DiphenhydrAMINE 50 mg/ml Inj IVP PRN ×7 (02:23→21:10)
[2017-10-04] MEDS: Sodium Chloride 0.9% 1,000 ML IV SCH (10:45)
[2017-10-04] MEDS: Linezolid 600 mg in D5W 300 ml 600 MG/300 ML BAG IVPB SCH ×2 (12:00→22:17)
--- NOTE | 2017-10-04 18:37 | CP.PCM.PN ---
Subjective - Date & Time of Evaluation Date of Evaluation: 10/04/17 Time of Evaluation: 10:30 - Subjective Subjective: clinically same Objective - Vital Signs/Intake and Output Vital Signs (last 24 hours): Temp Pulse Resp BP Pulse Ox 98.5 F 89 20 119/83 100 10/04/17 16:00 10/04/17 16:00 10/04/17 16:00 10/04/17 16:00 10/04/17 16:00 Intake and Output: 10/04/17 10/04/17 06:59 18:59 Intake Total 2290 Output Total 2100 Balance 190 - Medications Medications: Current Medications Acetaminophen (Tylenol 325mg Tab) 650 mg PO Q6 PRN PRN Reason: Fever >100.4 F Last Admin: 10/02/17 22:44 Dose: 650 mg Diphenhydramine HCl (Benadryl) 50 mg IVP Q3H PRN PRN Reason: Allergy symptoms Last Admin: 10/04/17 18:03 Dose: 50 mg Piperacillin Sod/Tazobactam Sod (Zosyn 3.375 Gm Iv Premix) 3.375 gm in 50 mls @ 100 mls/hr IVPB Q8H AP PRN Reason: Protocol Last Admin: 10/04/17 18:00 Dose: 100 mls/hr Sodium Chloride (Sodium Chloride 0.9%) 1,000 mls @ 75 mls/hr IV .[id number] AP Last Admin: 10/04/17 10:45 Dose: 75 mls/hr Linezolid (Zyvox 600mg/300ml D5w) 600 mg in 300 mls @ 200 mls/hr IVPB Q12H AP PRN Reason: Protocol Last Admin: 10/04/17 12:00 Dose: 200 mls/hr Morphine Sulfate (Morphine) 4 mg IVP Q3H PRN PRN Reason: Pain, severe (8-10) Last Admin: 10/04/17 18:03 Dose: 4 mg Ondansetron HCl (Zofran Inj) 4 mg IVP Q8H PRN PRN Reason: Nausea/Vomiting Last Admin: 10/04/17 14:25 Dose: 4 mg - Labs Labs: 10/03/17 08:28 10/03/17 08:28 PT 17.0 SECONDS (9.7-12.2) H 10/02/17 04:23 INR 1.6 10/02/17 04:23 APTT 40 SECONDS (21-34) H 10/02/17 04:23 - Constitutional Appears: Well - Head Exam Head Exam: ATRAUMATIC, NORMAL INSPECTION, NORMOCEPHALIC - Eye Exam Eye Exam: EOMI, Normal appearance, PERRL Pupil Exam: NORMAL ACCOMODATION, PERRL - ENT Exam ENT Exam: Mucous Membranes Moist, Normal Exam - Neck Exam Neck Exam: Full ROM, Normal Inspection. absent: Lymphadenopathy - Respiratory Exam Respiratory Exam: Decreased Breath Sounds - Cardiovascular Exam Cardiovascular Exam: REGULAR RHYTHM, +S1, +S2 - GI/Abdominal Exam GI & Abdominal Exam: Soft, Diminished Bowel Sounds - Rectal Exam Rectal Exam: Deferred
--- NOTE | 2017-10-04 20:40 | CP.PCM.PN ---
Subjective - Date & Time of Evaluation Date of Evaluation: 10/04/17 Time of Evaluation: 20:40 - Subjective Subjective: afebrile . c/o lower abdominal pain . lABS REVIEWED 10/02/17 Urine culture- E coli-ve ESBL / ENTEROCOCCUS FAECIUM wbc 22.9 H/H 7.4/22.1 cREATININE 1.6/bun 25 ELEVATED TRANSAMINITIS /? hEMOLYSIS Objective - Vital Signs/Intake and Output Vital Signs (last 24 hours): Temp Pulse Resp BP Pulse Ox 98.5 F 89 20 119/83 100 10/04/17 16:00 10/04/17 16:00 10/04/17 16:00 10/04/17 16:00 10/04/17 16:00 - Medications Medications: Current Medications Acetaminophen (Tylenol 325mg Tab) 650 mg PO Q6 PRN PRN Reason: Fever >100.4 F Last Admin: 10/02/17 22:44 Dose: 650 mg Diphenhydramine HCl (Benadryl) 50 mg IVP Q3H PRN PRN Reason: Allergy symptoms Last Admin: 10/04/17 18:03 Dose: 50 mg Piperacillin Sod/Tazobactam Sod (Zosyn 3.375 Gm Iv Premix) 3.375 gm in 50 mls @ 100 mls/hr IVPB Q8H AP PRN Reason: Protocol Last Admin: 10/04/17 18:00 Dose: 100 mls/hr Sodium Chloride (Sodium Chloride 0.9%) 1,000 mls @ 75 mls/hr IV .[id number] AP Last Admin: 10/04/17 10:45 Dose: 75 mls/hr Linezolid (Zyvox 600mg/300ml D5w) 600 mg in 300 mls @ 200 mls/hr IVPB Q12H AP PRN Reason: Protocol Last Admin: 10/04/17 12:00 Dose: 200 mls/hr Morphine Sulfate (Morphine) 4 mg IVP Q3H PRN PRN Reason: Pain, severe (8-10) Last Admin: 10/04/17 18:03 Dose: 4 mg Ondansetron HCl (Zofran Inj) 4 mg IVP Q8H PRN PRN Reason: Nausea/Vomiting Last Admin: 10/04/17 14:25 Dose: 4 mg - Labs Labs: 10/03/17 08:28 10/03/17 08:28 PT 17.0 SECONDS (9.7-12.2) H 10/02/17 04:23 INR 1.6 10/02/17 04:23 APTT 40 SECONDS (21-34) H 10/02/17 04:23 - Constitutional Appears: No Acute Distress - Head Exam Head Exam: NORMAL INSPECTION - Eye Exam Eye Exam: EOMI, Scleral icterus - ENT Exam ENT Exam: Normal Oropharynx - Neck Exam Neck Exam: Normal Inspection - Respiratory Exam Respiratory Exam: NORMAL BREATHING PATTERN - Cardiovascular Exam Cardiovascular Exam: REGULAR RHYTHM, +S1, +S2 - GI/Abdominal Exam GI & Abdominal Exam: Soft, Tenderness (lower abdomen quadrants) - Extremities Exam Extremities Exam: Normal Inspection. absent: Calf Tenderness, Tenderness - Neurological Exam Neurological Exam: Awake, CN II-XII Intact, Oriented x3 - Psychiatric Exam Psychiatric exam: Normal Mood - Skin Skin Exam: Normal Color Assessment and Plan (1) Fever Status: Acute (2) Pyelonephritis Status: Acute (3) Leukocytosis Status: Acute (4) Sickle cell pain crisis Status: Acute (5) Neurogenic bladder Status: Acute - Assessment and Plan (Free Text) Plan: Continue iv ZOSYN 3.375 EVERY 8 HOURLY FOR BROAD-[employer] COVERAGE FOR UTI. 10/02 Continue iv ZYVOX 600 MG iv PIGGYBACK EVERY 12 HOURLY .10/02/17 FOLLOW-UP RENAL FUNCTIONS CLOSELY. -eVAL Repeat UA and urine culture clean-catch. 10/05/17.
[2017-10-05] MEDS: DiphenhydrAMINE 50 mg/ml Inj IVP PRN ×7 (00:13→21:14)
[2017-10-05] MEDS: Morphine 4 MG/ML VIAL IVP PRN ×7 (00:13→21:08)
[2017-10-05] MEDS: Piperacill/Tazo 3.375gm in Dex 3.375 GM/50 ML BAG IVPB SCH ×3 (00:46→16:36)
[2017-10-05] MEDS: Sodium Chloride 0.9% 1,000 ML IV SCH ×2 (02:19→14:37)
[2017-10-05 06:39] LABS: BASO # 0.2 K/uL (0.0-0.2); BASO % 1.2 % (0.0-2.0); EOS % 6.4 % (0.0-4.0); HEMOGLOBIN 7.8 g/dL (11.0-16.0); LYMPH # 3.4 K/uL (1.0-4.3); LYMPH % 22.7 % (20.0-40.0); MEAN CELL VOLUME 85.7 fL (81.0-99.0); MEAN CORPUSCULAR HEMOGLOBIN 28.7 pg (27.0-31.0); MEAN CORPUSCULAR HGB CONC 33.5 g/dL (33.0-37.0); MEAN PLATELET VOLUME 9.2 fL (7.2-11.7); MONO # 1.1 K/uL (0.0-0.8); MONO % 7.2 % (0.0-10.0); NEUT # 9.4 K/uL (1.8-7.0); NEUT % 62.5 % (50.0-75.0); RBC 2.72 Mil/uL (3.80-5.20); RED CELL DISTRIBUTION WIDTH 16.2 % (11.5-14.5)
[2017-10-05 07:12] LABS: CALCIUM 8.1 mg/dl (8.6-10.4)
[2017-10-05 07:16] LABS: SQUAMOUS EPITHIAL < 1 /hpf (0-5); URINE BILIRUBIN NEGATIVE (NEGATIVE); URINE BLOOD 1+ (NEGATIVE); URINE CLARITY Clear (Clear); URINE COLOR Straw (YELLOW); URINE GLUCOSE (UA) NORMAL (Normal); URINE LEUKOCYTE ESTERASE 3+ Leu/uL (Negative); URINE PROTEIN NEGATIVE (NEGATIVE); URINE UROBILINOGEN NORMAL mg/dL (0.2-1.0)
[2017-10-05] MEDS: Linezolid 600 mg in D5W 300 ml 600 MG/300 ML BAG IVPB SCH ×2 (11:02→22:30)
--- NOTE | 2017-10-05 19:53 | CP.PCM.PN ---
Subjective - Date & Time of Evaluation Date of Evaluation: 10/05/17 Time of Evaluation: 10:15 - Subjective Subjective: clinically same Objective - Vital Signs/Intake and Output Vital Signs (last 24 hours): Temp Pulse Resp BP Pulse Ox 98.2 F 93 H 20 119/86 96 10/05/17 17:25 10/05/17 17:25 10/05/17 17:25 10/05/17 17:25 10/05/17 17:25 Intake and Output: 10/05/17 10/06/17 18:59 06:59 Intake Total 600 Output Total 1500 Balance -900 - Medications Medications: Current Medications Acetaminophen (Tylenol 325mg Tab) 650 mg PO Q6 PRN PRN Reason: Fever >100.4 F Last Admin: 10/02/17 22:44 Dose: 650 mg Diphenhydramine HCl (Benadryl) 50 mg IVP Q3H PRN PRN Reason: Allergy symptoms Last Admin: 10/05/17 18:01 Dose: 50 mg Piperacillin Sod/Tazobactam Sod (Zosyn 3.375 Gm Iv Premix) 3.375 gm in 50 mls @ 100 mls/hr IVPB Q8H AP PRN Reason: Protocol Last Admin: 10/05/17 16:36 Dose: 100 mls/hr Sodium Chloride (Sodium Chloride 0.9%) 1,000 mls @ 75 mls/hr IV .[id number] AP Last Admin: 10/05/17 14:37 Dose: 75 mls/hr Linezolid (Zyvox 600mg/300ml D5w) 600 mg in 300 mls @ 200 mls/hr IVPB Q12H AP PRN Reason: Protocol Last Admin: 10/05/17 11:02 Dose: 200 mls/hr Morphine Sulfate (Morphine) 4 mg IVP Q3H PRN PRN Reason: Pain, severe (8-10) Last Admin: 10/05/17 17:55 Dose: 4 mg Ondansetron HCl (Zofran Inj) 4 mg IVP Q8H PRN PRN Reason: Nausea/Vomiting Last Admin: 10/05/17 14:54 Dose: 4 mg - Labs Labs: 10/05/17 06:36 10/05/17 06:36 PT 17.0 SECONDS (9.7-12.2) H 10/02/17 04:23 INR 1.6 10/02/17 04:23 APTT 40 SECONDS (21-34) H 10/02/17 04:23 - Constitutional Appears: Well - Head Exam Head Exam: ATRAUMATIC, NORMAL INSPECTION, NORMOCEPHALIC - Eye Exam Eye Exam: EOMI, Normal appearance, PERRL Pupil Exam: NORMAL ACCOMODATION, PERRL - ENT Exam ENT Exam: Mucous Membranes Moist, Normal Exam - Neck Exam Neck Exam: Full ROM, Normal Inspection. absent: Lymphadenopathy - Respiratory Exam Respiratory Exam: Decreased Breath Sounds - Cardiovascular Exam Cardiovascular Exam: REGULAR RHYTHM, +S1, +S2 - GI/Abdominal Exam GI & Abdominal Exam: Soft, Diminished Bowel Sounds - Rectal Exam Rectal Exam: Deferred
--- NOTE | 2017-10-05 22:28 | CP.PCM.PN ---
Subjective - Date & Time of Evaluation Date of Evaluation: 10/05/17 Time of Evaluation: 22:28 - Subjective Subjective: afebrile . c/o lower abdominal pain . DENIES DYSURIA lABS REVIEWED 10/02/17 Urine culture- E coli-ve ESBL / ENTEROCOCCUS FAECIUM wbc 15.0 IMPROVING H/H 7.8/23.3 cREATININE 1.7/bun 20 ELEVATED TRANSAMINITIS /? hEMOLYSIS Objective - Vital Signs/Intake and Output Vital Signs (last 24 hours): Temp Pulse Resp BP Pulse Ox 98.2 F 90 20 125/77 96 10/05/17 17:25 10/05/17 21:10 10/05/17 21:10 10/05/17 21:10 10/05/17 17:25 Intake and Output: 10/05/17 10/06/17 18:59 06:59 Intake Total 600 Output Total 1500 Balance -900 - Medications Medications: Current Medications Acetaminophen (Tylenol 325mg Tab) 650 mg PO Q6 PRN PRN Reason: Fever >100.4 F Last Admin: 10/02/17 22:44 Dose: 650 mg Diphenhydramine HCl (Benadryl) 50 mg IVP Q3H PRN PRN Reason: Allergy symptoms Last Admin: 10/05/17 21:14 Dose: 50 mg Piperacillin Sod/Tazobactam Sod (Zosyn 3.375 Gm Iv Premix) 3.375 gm in 50 mls @ 100 mls/hr IVPB Q8H AP PRN Reason: Protocol Last Admin: 10/05/17 16:36 Dose: 100 mls/hr Sodium Chloride (Sodium Chloride 0.9%) 1,000 mls @ 75 mls/hr IV .[id number] AP Last Admin: 10/05/17 14:37 Dose: 75 mls/hr Linezolid (Zyvox 600mg/300ml D5w) 600 mg in 300 mls @ 200 mls/hr IVPB Q12H AP PRN Reason: Protocol Last Admin: 10/05/17 11:02 Dose: 200 mls/hr Morphine Sulfate (Morphine) 4 mg IVP Q3H PRN PRN Reason: Pain, severe (8-10) Last Admin: 10/05/17 21:08 Dose: 4 mg Ondansetron HCl (Zofran Inj) 4 mg IVP Q8H PRN PRN Reason: Nausea/Vomiting Last Admin: 10/05/17 14:54 Dose: 4 mg - Labs Labs: 10/05/17 06:36 10/05/17 06:36 PT 17.0 SECONDS (9.7-12.2) H 10/02/17 04:23 INR 1.6 10/02/17 04:23 APTT 40 SECONDS (21-34) H 10/02/17 04:23 - Constitutional Appears: No Acute Distress - Head Exam Head Exam: NORMAL INSPECTION - Eye Exam Eye Exam: EOMI, PERRL, Scleral icterus - ENT Exam ENT Exam: Normal Oropharynx - Neck Exam Neck Exam: Normal Inspection - Respiratory Exam Respiratory Exam: Clear to Ausculation Bilateral - Cardiovascular Exam Cardiovascular Exam: REGULAR RHYTHM, +S1, +S2 - GI/Abdominal Exam GI & Abdominal Exam: Soft, Tenderness (LOWER ABDOMEN.), Normal Bowel Sounds - Extremities Exam Extremities Exam: absent: Calf Tenderness, Pedal Edema - Neurological Exam Neurological Exam: Awake, CN II-XII Intact, Oriented x3, Reflexes Normal - Psychiatric Exam Psychiatric exam: Normal Mood - Skin Skin Exam: Normal Color, Warm Assessment and Plan (1) Fever Status: Acute (2) Pyelonephritis Status: Acute (3) Leukocytosis Status: Acute (4) Sickle cell pain crisis Status: Acute (5) Neurogenic bladder Status: Acute - Assessment and Plan (Free Text) Plan: Continue iv ZOSYN 3.375 EVERY 8 HOURLY FOR BRO[employer] C[employer]AGE FOR UTI. 10/02 Continue iv ZYVOX 600 MG iv PIGGYBACK EVERY 12 HOURLY .10/02/17 FOLLOW-UP RENAL FUNCTIONS CLOSELY. -eVAL Repeat UA and urine culture clean-catch. 10/05/17.-PENDING
[2017-10-06] MEDS: DiphenhydrAMINE 50 mg/ml Inj IVP PRN ×7 (00:25→22:26)
[2017-10-06] MEDS: Morphine 4 MG/ML VIAL IVP PRN ×7 (00:25→22:27)
[2017-10-06] MEDS: Piperacill/Tazo 3.375gm in Dex 3.375 GM/50 ML BAG IVPB SCH ×3 (00:30→18:19)
[2017-10-06] MEDS: Sodium Chloride 0.9% 1,000 ML IV SCH ×3 (03:51→17:05)
[2017-10-06 08:11] LABS: HEMOGLOBIN 7.8 g/dL (11.0-16.0); MEAN CELL VOLUME 86.2 fL (81.0-99.0); MEAN CORPUSCULAR HEMOGLOBIN 29.2 pg (27.0-31.0); MEAN CORPUSCULAR HGB CONC 33.9 g/dL (33.0-37.0); MEAN PLATELET VOLUME 8.8 fL (7.2-11.7); RBC 2.67 Mil/uL (3.80-5.20); RED CELL DISTRIBUTION WIDTH 16.5 % (11.5-14.5); WHITE BLOOD COUNT 16.3 K/uL (4.8-10.8)
[2017-10-06 08:50] LABS: CALCIUM 7.9 mg/dl (8.6-10.4)
[2017-10-06] MEDS: Linezolid 600 mg in D5W 300 ml 600 MG/300 ML BAG IVPB SCH ×2 (10:40→22:28)
--- NOTE | 2017-10-06 17:54 | CP.PCM.PN ---
Subjective - Date & Time of Evaluation Date of Evaluation: 10/06/17 Time of Evaluation: 10:00 - Subjective Subjective: clinically same Objective - Vital Signs/Intake and Output Vital Signs (last 24 hours): Temp Pulse Resp BP Pulse Ox 97.9 F 100 H 20 125/84 97 10/06/17 15:12 10/06/17 15:12 10/06/17 15:12 10/06/17 15:12 10/06/17 15:12 Intake and Output: 10/06/17 10/06/17 06:59 18:59 Intake Total 1080 600 Output Total 1000 Balance 80 600 - Medications Medications: Current Medications Acetaminophen (Tylenol 325mg Tab) 650 mg PO Q6 PRN PRN Reason: Fever >100.4 F Last Admin: 10/02/17 22:44 Dose: 650 mg Diphenhydramine HCl (Benadryl) 50 mg IVP Q3H PRN PRN Reason: Allergy symptoms Last Admin: 10/06/17 14:36 Dose: 50 mg Piperacillin Sod/Tazobactam Sod (Zosyn 3.375 Gm Iv Premix) 3.375 gm in 50 mls @ 100 mls/hr IVPB Q8H AP PRN Reason: Protocol Last Admin: 10/06/17 08:37 Dose: 100 mls/hr Sodium Chloride (Sodium Chloride 0.9%) 1,000 mls @ 75 mls/hr IV .[id number] AP Last Admin: 10/06/17 06:01 Dose: 75 mls/hr Linezolid (Zyvox 600mg/300ml D5w) 600 mg in 300 mls @ 200 mls/hr IVPB Q12H AP PRN Reason: Protocol Last Admin: 10/06/17 10:40 Dose: 200 mls/hr Morphine Sulfate (Morphine) 4 mg IVP Q3H PRN PRN Reason: Pain, severe (8-10) Last Admin: 10/06/17 14:36 Dose: 4 mg Ondansetron HCl (Zofran Inj) 4 mg IVP Q8H PRN PRN Reason: Nausea/Vomiting Last Admin: 10/06/17 10:36 Dose: 4 mg - Labs Labs: 10/06/17 08:02 10/06/17 08:02 PT 17.0 SECONDS (9.7-12.2) H 10/02/17 04:23 INR 1.6 10/02/17 04:23 APTT 40 SECONDS (21-34) H 10/02/17 04:23 - Constitutional Appears: Well - Head Exam Head Exam: ATRAUMATIC, NORMAL INSPECTION, NORMOCEPHALIC - Eye Exam Eye Exam: EOMI, Normal appearance, PERRL Pupil Exam: NORMAL ACCOMODATION, PERRL - ENT Exam ENT Exam: Mucous Membranes Moist, Normal Exam - Neck Exam Neck Exam: Full ROM, Normal Inspection. absent: Lymphadenopathy - Respiratory Exam Respiratory Exam: Decreased Breath Sounds - Cardiovascular Exam Cardiovascular Exam: REGULAR RHYTHM, +S1, +S2 - GI/Abdominal Exam GI & Abdominal Exam: Soft, Diminished Bowel Sounds - Rectal Exam Rectal Exam: Deferred
--- NOTE | 2017-10-06 21:44 | CP.PCM.PN ---
Subjective - Date & Time of Evaluation Date of Evaluation: 10/06/17 Time of Evaluation: 21:44 - Subjective Subjective: afebrile . feeling better DENIES DYSURIA lABS REVIEWED 10/05/17 repeat clean catch catheter urine culture -ve growth 10/02/17 Urine culture- E coli-ve ESBL / ENTEROCOCCUS FAECIUM wbc 16.3 H/H 7.8/23.3 plt 229 cREATININE 1.6 /bun 21 ELEVATED TRANSAMINITIS /? hEMOLYSIS Objective - Vital Signs/Intake and Output Vital Signs (last 24 hours): Temp Pulse Resp BP Pulse Ox 97.9 F 100 H 20 125/84 97 10/06/17 15:12 10/06/17 15:12 10/06/17 15:12 10/06/17 15:12 10/06/17 15:12 Intake and Output: 10/06/17 10/07/17 18:59 06:59 Intake Total 600 Balance 600 - Medications Medications: Current Medications Acetaminophen (Tylenol 325mg Tab) 650 mg PO Q6 PRN PRN Reason: Fever >100.4 F Last Admin: 10/02/17 22:44 Dose: 650 mg Diphenhydramine HCl (Benadryl) 50 mg IVP Q3H PRN PRN Reason: Allergy symptoms Last Admin: 10/06/17 18:28 Dose: 50 mg Piperacillin Sod/Tazobactam Sod (Zosyn 3.375 Gm Iv Premix) 3.375 gm in 50 mls @ 100 mls/hr IVPB Q8H AP PRN Reason: Protocol Last Admin: 10/06/17 18:19 Dose: 100 mls/hr Sodium Chloride (Sodium Chloride 0.9%) 1,000 mls @ 75 mls/hr IV .[id number] [facility] Last Admin: 10/06/17 06:01 Dose: 75 mls/hr Linezolid (Zyvox 600mg/300ml D5w) 600 mg in 300 mls @ 200 mls/hr IVPB Q12H AP PRN Reason: Protocol Last Admin: 10/06/17 10:40 Dose: 200 mls/hr Morphine Sulfate (Morphine) 4 mg IVP Q3H PRN PRN Reason: Pain, severe (8-10) Last Admin: 10/06/17 18:27 Dose: 4 mg Ondansetron HCl (Zofran Inj) 4 mg IVP Q8H PRN PRN Reason: Nausea/Vomiting Last Admin: 10/06/17 18:41 Dose: 4 mg - Labs Labs: 10/06/17 08:02 10/06/17 08:02 PT 17.0 SECONDS (9.7-12.2) H 10/02/17 04:23 INR 1.6 10/02/17 04:23 APTT 40 SECONDS (21-34) H 10/02/17 04:23 - Constitutional Appears: No Acute Distress - Head Exam Head Exam: NORMAL INSPECTION - Eye Exam Eye Exam: EOMI, PERRL, Scleral icterus - ENT Exam ENT Exam: Normal Oropharynx - Neck Exam Neck Exam: Normal Inspection - Respiratory Exam Respiratory Exam: Clear to Ausculation Bilateral - Cardiovascular Exam Cardiovascular Exam: REGULAR RHYTHM, +S1, +S2 - GI/Abdominal Exam GI & Abdominal Exam: Soft, Normal Bowel Sounds. absent: Tenderness - Extremities Exam Extremities Exam: absent: Calf Tenderness, Pedal Edema - Back Exam Back Exam: absent: CVA tenderness (L), CVA tenderness (R) - Neurological Exam Neurological Exam: Awake, CN II-XII Intact, Oriented x3, Reflexes Normal - Psychiatric Exam Psychiatric exam: Normal Mood - Skin Skin Exam: Warm Assessment and Plan (1) Fever Assessment & Plan: resolved. Status: Acute (2) Pyelonephritis Status: Acute (3) Leukocytosis Status: Acute (4) Sickle cell pain crisis Status: Acute (5) Neurogenic bladder Status: Acute - Assessment and Plan (Free Text) Plan: Continue iv ZOSYN 3.375 EVERY 8 HOURLY FOR BROAD-[employer] C[employer]AGE FOR UTI. 10/02 DC iv ZYVOX 600 MG iv PIGGYBACK EVERY 12 HOURLY .10/02/17- 10/06/17 TONIGHT FOLLOW-UP RENAL FUNCTIONS CLOSELY. F/U LFTS IN AM.
[2017-10-07] MEDS: Piperacill/Tazo 3.375gm in Dex 3.375 GM/50 ML BAG IVPB SCH ×3 (00:26→17:16)
[2017-10-07] MEDS: Morphine 4 MG/ML VIAL IVP PRN ×6 (02:15→20:38)
[2017-10-07] MEDS: DiphenhydrAMINE 50 mg/ml Inj IVP PRN ×6 (02:15→20:37)
[2017-10-07] MEDS: Sodium Chloride 0.9% 1,000 ML IV SCH ×2 (03:46→19:45)
[2017-10-07 07:22] LABS: HEMOGLOBIN 7.4 g/dL (11.0-16.0); MEAN CELL VOLUME 86.7 fL (81.0-99.0); MEAN CORPUSCULAR HEMOGLOBIN 28.7 pg (27.0-31.0); MEAN CORPUSCULAR HGB CONC 33.1 g/dL (33.0-37.0); MEAN PLATELET VOLUME 9.2 fL (7.2-11.7); RBC 2.59 Mil/uL (3.80-5.20); RED CELL DISTRIBUTION WIDTH 16.5 % (11.5-14.5); WHITE BLOOD COUNT 17.4 K/uL (4.8-10.8)
[2017-10-07 07:50] LABS: ALB/GLOB RATIO 0.8 (1.0-2.1); ALBUMIN 3.5 g/dL (3.5-5.0); BILIRUBIN,DIRECT 0.6 mg/dL (0.0-0.4); CALCIUM 7.2 mg/dl (8.6-10.4)
--- NOTE | 2017-10-07 19:50 | CP.PCM.PN ---
Subjective - Date & Time of Evaluation Date of Evaluation: 10/07/17 Time of Evaluation: 19:50 - Subjective Subjective: afebrile . feeling better DENIES DYSURIA AMBULATING lABS REVIEWED 10/05/17 repeat clean catch catheter urine culture -ve growth 10/02/17 Urine culture- E coli-ve ESBL / ENTEROCOCCUS FAECIUM wbc 16.3--> 17.4 H/H 7.8/23.3-->7.4 plt 229--> 213 cREATININE 1.4 /bun 18 - IMPROVING TRANSAMINITIS - IMPROVING. Objective - Vital Signs/Intake and Output Vital Signs (last 24 hours): Temp Pulse Resp BP Pulse Ox 98 F 106 H 20 119/82 96 10/07/17 17:22 10/07/17 17:22 10/07/17 17:22 10/07/17 17:22 10/07/17 17:22 Intake and Output: 10/07/17 10/08/17 18:59 06:59 Intake Total 600 Balance 600 - Medications Medications: Current Medications Acetaminophen (Tylenol 325mg Tab) 650 mg PO Q6 PRN PRN Reason: Fever >100.4 F Last Admin: 10/02/17 22:44 Dose: 650 mg Diphenhydramine HCl (Benadryl) 50 mg IVP Q3H PRN PRN Reason: Allergy symptoms Last Admin: 10/07/17 17:03 Dose: 50 mg Piperacillin Sod/Tazobactam Sod (Zosyn 3.375 Gm Iv Premix) 3.375 gm in 50 mls @ 100 mls/hr IVPB Q8H AP PRN Reason: Protocol Last Admin: 10/07/17 17:16 Dose: 100 mls/hr Sodium Chloride (Sodium Chloride 0.9%) 1,000 mls @ 75 mls/hr IV .[id number] AP Last Admin: 10/07/17 03:46 Dose: 75 mls/hr Morphine Sulfate (Morphine) 4 mg IVP Q3H PRN PRN Reason: Pain, severe (8-10) Last Admin: 10/07/17 17:02 Dose: 4 mg Ondansetron HCl (Zofran Inj) 4 mg IVP Q8H PRN PRN Reason: Nausea/Vomiting Last Admin: 10/07/17 05:11 Dose: 4 mg - Labs Labs: 10/07/17 07:09 08/16/18 07:09 PT 17.0 SECONDS (9.7-12.2) H 10/02/17 04:23 INR 1.6 10/02/17 04:23 APTT 40 SECONDS (21-34) H 10/02/17 04:23 - Constitutional Appears: No Acute Distress - Head Exam Head Exam: NORMAL INSPECTION - Eye Exam Eye Exam: EOMI, PERRL - ENT Exam ENT Exam: Normal Oropharynx - Neck Exam Neck Exam: Normal Inspection - Respiratory Exam Respiratory Exam: Clear to Ausculation Bilateral - Cardiovascular Exam Cardiovascular Exam: REGULAR RHYTHM, +S1 - GI/Abdominal Exam GI & Abdominal Exam: Soft, Normal Bowel Sounds. absent: Tenderness - Extremities Exam Extremities Exam: Normal Capillary Refill. absent: Calf Tenderness, Pedal Edema - Neurological Exam Neurological Exam: Awake, CN II-XII Intact, Oriented x3, Reflexes Normal - Skin Skin Exam: Warm Assessment and Plan (1) Fever Status: Acute (2) Pyelonephritis Status: Acute (3) Leukocytosis Status: Acute (4) Sickle cell pain crisis Status: Acute (5) Neurogenic bladder Status: Acute - Assessment and Plan (Free Text) Plan: Continue iv ZOSYN 3.375 EVERY 8 HOURLY FOR BROAD-[employer] COVERAGE FOR UTI. 10/02. WHEN CLEARED BY PMD PT CAN BE PLACED ON ORAL AUGMENTIN 500MG PO BID X 5 DAYS FOLLOW-UP RENAL FUNCTIONS CLOSELY. F/U LFTS IN AM.
--- NOTE | 2017-10-07 20:06 | CP.PCM.PN ---
Subjective - Date & Time of Evaluation Date of Evaluation: 10/07/17 Time of Evaluation: 08:30 - Subjective Subjective: clinically same Objective - Vital Signs/Intake and Output Vital Signs (last 24 hours): Temp Pulse Resp BP Pulse Ox 98 F 106 H 20 119/82 96 10/07/17 17:22 10/07/17 17:22 10/07/17 17:22 10/07/17 17:22 10/07/17 17:22 Intake and Output: 10/07/17 10/08/17 18:59 06:59 Intake Total 600 Balance 600 - Medications Medications: Current Medications Acetaminophen (Tylenol 325mg Tab) 650 mg PO Q6 PRN PRN Reason: Fever >100.4 F Last Admin: 10/02/17 22:44 Dose: 650 mg Diphenhydramine HCl (Benadryl) 50 mg IVP Q3H PRN PRN Reason: Allergy symptoms Last Admin: 10/07/17 17:03 Dose: 50 mg Piperacillin Sod/Tazobactam Sod (Zosyn 3.375 Gm Iv Premix) 3.375 gm in 50 mls @ 100 mls/hr IVPB Q8H AP PRN Reason: Protocol Last Admin: 10/07/17 17:16 Dose: 100 mls/hr Sodium Chloride (Sodium Chloride 0.9%) 1,000 mls @ 75 mls/hr IV .[id number] AP Last Admin: 10/07/17 03:46 Dose: 75 mls/hr Morphine Sulfate (Morphine) 4 mg IVP Q3H PRN PRN Reason: Pain, severe (8-10) Last Admin: 10/07/17 17:02 Dose: 4 mg Ondansetron HCl (Zofran Inj) 4 mg IVP Q8H PRN PRN Reason: Nausea/Vomiting Last Admin: 10/07/17 05:11 Dose: 4 mg - Labs Labs: 10/07/17 07:09 10/07/17 07:09 PT 17.0 SECONDS (9.7-12.2) H 10/02/17 04:23 INR 1.6 10/02/17 04:23 APTT 40 SECONDS (21-34) H 10/02/17 04:23 - Constitutional Appears: Well - Head Exam Head Exam: ATRAUMATIC, NORMAL INSPECTION, NORMOCEPHALIC - Eye Exam Eye Exam: EOMI, Normal appearance, PERRL Pupil Exam: NORMAL ACCOMODATION, PERRL - ENT Exam ENT Exam: Mucous Membranes Moist, Normal Exam - Neck Exam Neck Exam: Full ROM, Normal Inspection. absent: Lymphadenopathy - Respiratory Exam Respiratory Exam: Decreased Breath Sounds - Cardiovascular Exam Cardiovascular Exam: REGULAR RHYTHM, +S1, +S2 - GI/Abdominal Exam GI & Abdominal Exam: Soft, Diminished Bowel Sounds - Rectal Exam Rectal Exam: Deferred
[2017-10-08] MEDS: Morphine 4 MG/ML VIAL IVP PRN ×5 (00:49→14:25)
[2017-10-08] MEDS: DiphenhydrAMINE 50 mg/ml Inj IVP PRN ×5 (00:50→14:27)
[2017-10-08] MEDS: Piperacill/Tazo 3.375gm in Dex 3.375 GM/50 ML BAG IVPB SCH ×2 (00:50→12:13)
[2017-10-08 07:44] LABS: HEMOGLOBIN 7.8 g/dL (11.0-16.0); MEAN CELL VOLUME 86.1 fL (81.0-99.0); MEAN CORPUSCULAR HEMOGLOBIN 29.3 pg (27.0-31.0); MEAN PLATELET VOLUME 9.1 fL (7.2-11.7); RBC 2.68 Mil/uL (3.80-5.20); RED CELL DISTRIBUTION WIDTH 15.7 % (11.5-14.5); WHITE BLOOD COUNT 21.8 K/uL (4.8-10.8)
[2017-10-08 08:18] LABS: ALB/GLOB RATIO 0.8 (1.0-2.1); ALBUMIN 3.7 g/dL (3.5-5.0)
[2017-10-08 08:33] VITALS: BP 123/73; PULSE 74; RESP 97; TEMP 98.8; O2SAT 20
--- NOTE | 2017-10-08 12:49 | CP.PCM.PN ---
Subjective - Date & Time of Evaluation Date of Evaluation: 10/08/17 Time of Evaluation: 12:49 - Subjective Subjective: PT CLEARED FOR D/C HOME TODAY PER DR. Alba GONZALEZ AND DR. Matt PENNY. PER DR. PENNY, RX AUGMENTIN 500 MG PO BID X5 DAYS. RX SENT TO PT'S PHARMACY. DISCUSSED ALL D/ C INFORMATION AND F/U WITH PT. NO FURTHER ORDERS. -FOLLOW UP WITH DR. Holland GONZALEZ IN THE OFFICE WITHIN 5-7 DAYS---CALL THE OFFICE TO MAKE AN APPOINTMENT. -FOLLOW UP WITH DR. ALYSIA PENNY (INFECTION DOCTOR) IN THE OFFICE WITHIN 7-10 DAYS---CALL THE OFFICE TO MAKE AN APPOINTMENT. -CONTINUE HOME MEDICATIONS USUAL. -YOU HAVE BEEN PRESCRIBED AN ANTIBIOTIC PER DR. PENNY: 1) AUGMENTIN 500 MG---TAKE 1 TABLET BY MOUTH TWICE A DAY (MORNING AND EVENING) FOR 5 DAYS. -FOR FURTHER QUESTIONS, CONTACT DR. Alba GONZALEZ OR DR. PENNY. Objective - Vital Signs/Intake and Output Vital Signs (last 24 hours): Temp Pulse Resp BP Pulse Ox 98.8 F 74 97 H 123/73 20 L 10/08/17 07:30 10/08/17 07:30 10/08/17 07:30 10/08/17 07:30 10/08/17 07:30 Intake and Output: 10/08/17 10/08/17 06:59 18:59 Intake Total 1080 Output Total 2600 Balance -1520 - Medications Medications: Current Medications Acetaminophen (Tylenol 325mg Tab) 650 mg PO Q6 PRN PRN Reason: Fever >100.4 F Last Admin: 10/02/17 22:44 Dose: 650 mg Diphenhydramine HCl (Benadryl) 50 mg IVP Q3H PRN PRN Reason: Allergy symptoms Last Admin: 10/08/17 11:59 Dose: 50 mg Piperacillin Sod/Tazobactam Sod (Zosyn 3.375 Gm Iv Premix) 3.375 gm in 50 mls @ 100 mls/hr IVPB Q8H AP PRN Reason: Protocol Last Admin: 10/08/17 12:13 Dose: 100 mls/hr Sodium Chloride (Sodium Chloride 0.9%) 1,000 mls @ 75 mls/hr IV .[id number] AP Last Admin: 10/07/17 19:45 Dose: Not Given Morphine Sulfate (Morphine) 4 mg IVP Q3H PRN PRN Reason: Pain, severe (8-10) Last Admin: 10/08/17 11:59 Dose: 4 mg Ondansetron HCl (Zofran Inj) 4 mg IVP Q8H PRN PRN Reason: Nausea/Vomiting Last Admin: 10/08/17 00:50 Dose: 4 mg - Labs Labs: 10/08/17 07:26 10/08/17 07:26 PT 17.0 SECONDS (9.7-12.2) H 10/02/17 04:23 INR 1.6 10/02/17 04:23 APTT 40 SECONDS (21-34) H 10/02/17 04:23
--- NOTE | 2017-10-11 09:01 | CARD ---
APPROVED REPORT Date of service: 10/02/2017 EKG Measurement Heart [id number] <Conclusion> Sinus tachycardia Nonspecific ST abnormality Abnormal ECG
== END 2017-10-08 16:00 | disposition home or self-care (01) | DRG 812 ==
LOC: C.ER 02:49 → C.9E 05:24 → C.6T 18:02
PROVIDERS: ADMIT Internal Medicine Nephrology; ATTEND Internal Medicine Nephrology
DX: D57.00 Hb-SS disease with crisis, unspecified (principal); N10 Acute pyelonephritis; N31.9 Neuromuscular dysfunction of bladder, unspecified

== ENCOUNTER 2018-04-02 10:53 | Emergency (ER) | payer MEDICARE ==
[2018-04-02 10:53] VITALS: BMI 22.4
--- NOTE | 2018-04-02 13:22 | C.PDOC ---
History Of Present Illness 37 year old female with a PMHx of sickle cell presents to the ED for evaluation of sickle cell related pain for 2 days with intermittent runny nose. The patient reports only taking folic acid for sickle cell dx, notes she is compliant with medication. States regular visits to information assurance Dr. Madiha [place], PMD Dr. Holland Cleveland. Known allergies to medication include: Ketorolac, Droperidol, Tramadol, and Inapsine. She denies fever, chills, nausea, vomiting, recent travel, recent changes in activity, numbness, tingling, and any other associated symptoms. Time Seen by Provider: 04/02/18 12:02 Chief Complaint (Nursing): Pain, Chronic History Per: Patient History/Exam Limitations: no limitations Onset/Duration Of Symptoms: Days (x2) Current Symptoms Are (Timing): Still Present Recent travel outside of the [place]: No Past Medical History Reviewed: Historical Data, Nursing Documentation, Vital Signs Vital Signs: Last Vital Signs Temp 98.6 F 04/02/18 11:10 Pulse 121 H 04/02/18 11:10 Resp 18 04/02/18 11:10 BP 131/85 04/02/18 11:10 Pulse Ox 100 04/02/18 11:10 - Medical History PMH: Anemia, Migraine, Sickle Cell Disease Denies: Atrial Fibrillation, Hyperthyroidism, Chronic Kidney Disease Surgical History: Cholecystectomy (2003) - [facility] Procedures DILATION OF RIGHT URETER WITH INTRALUMINAL DEVICE, ENDO (06/17/17) PACKED CELL TRANSFUSION (07/26/12) REMOVAL OF INTRALUMINAL DEVICE FROM URETER, ENDO (06/17/17) TETANUS TOXOID ADMINIST (11/14/12) TRANSFUSE NONAUT RED BLOOD CELLS IN PERIPH VEIN, PERC (06/17/17) Family History: States: Unknown Family Hx - Social History Hx Tobacco Use: No Hx Alcohol Use: No Hx Substance Use: No - Immunization History Hx Tetanus Toxoid Vaccination: Yes Hx Influenza Vaccination: Yes Hx Pneumococcal Vaccination: Yes Review Of Systems Except As Marked, All Systems Reviewed And Found Negative. Constitutional: Negative for: Fever, Chills, Other ((-) recent changes in activity. ) Gastrointestinal: Negative for: Nausea, Vomiting Musculoskeletal: Positive for: Other ((+) sickle cell related pains. ) Neurological: Negative for: Weakness, Numbness, Incoordination Physical Exam - Physical Exam Appears: Well, Non-toxic, No Acute Distress, Other (resting comfortably. ) Skin: Warm, Dry Head: Atraumatic, Normacephalic Eye(s): bilateral: Normal Inspection Oral Mucosa: Moist Neck: Normal ROM, Supple Chest: Symmetrical Cardiovascular: Rhythm Regular, No Murmur Respiratory: Normal Breath Sounds, No Rales, No Rhonchi, No Wheezing Gastrointestinal/Abdominal: Normal Exam, Soft, No Tenderness Back: No CVA Tenderness, Other ((+) scoliosis. (+) cifosis.) Extremity: Normal ROM (x4) Neurological/Psych: Oriented x3, Normal Speech, Normal Cognition ED Course And Treatment O2 Sat by Pulse Oximetry: 100 (RA) Pulse Ox Interpretation: Normal Medical Decision Making Medical Decision Making: Initial plan: -Benadryl -Dilaudid Progress/Update: Patient appears well. PO protocol for sickle cell disease [facility]. Given Dilaudid and Tylenol. Patient states feeling better. Stable for discharge home. Advised to follow up with information assurance. On re-exam, the patient reports improvement of symptoms. Lungs are CTA, heart is RRR, abdomen is soft, non- tender and the patient is tolerating PO well. Follow up with the medical doctor within 1-2 days. Return if worsened. Disposition - Disposition Referrals: Rosalina Cleveland MD [Staff Provider] - Disposition: HOME/ ROUTINE Disposition Time: 15:51 Condition: STABLE Additional Instructions: Follow up with the medical doctor/clinic within 1-2 days. Return if worsened. Instructions: Sickle Cell Disease Forms: [employer] ([place]) - Clinical Impression Clinical Impression: Sickle cell anemia - PA / [employer] / Resident Statement MD/DO has reviewed & agrees with the documentation as recorded. - Scribe Statement The provider has reviewed the documentation as recorded by the Scribe (Nat Douglas) All medical record entries made by the Scribe were at my direction and personally dictated by me. I have reviewed the chart and agree that the record accurately reflects my personal performance of the history, physical exam, medical decision making, and the department course for this patient. I have also personally directed, reviewed, and agree with the discharge instructions and disposition.
[2018-04-02 15:54] VITALS: O2SAT 100
[2018-04-02 16:23] VITALS: BP 110/70; PULSE 108; RESP 18; TEMP 98.2
== END 2018-04-02 16:24 | disposition home or self-care (01) ==
LOC: C.ER 10:53
DX: D57.1 Sickle-cell disease without crisis (principal)

== ENCOUNTER 2018-04-17 00:14 | Inpatient (IN) | payer MEDICARE | END 2018-04-30 19:44 | disposition home or self-care (01) | LOC: C.3T 04-20 18:22 → C.ER 00:14 → C.3T 04-19 14:35 → C.9E 06:41 → C.3T 07:04 ==

== ENCOUNTER 2018-06-01 15:45 | Emergency (ER) | payer MEDICARE ==
[2018-06-01 15:46] VITALS: BMI 22.4
[2018-06-01 16:11] VITALS: RESP 20; TEMP 98.7
[2018-06-01] MEDS ORDERED: Sodium Chloride 0.9% 1,000 ML IV ONE (16:37)
--- NOTE | 2018-06-01 17:05 | C.PDOC ---
History Of Present Illness 37 y/o female,w/PMhx of sickle cell disease, presents to the ER complaining of generalized body aches which have been present for the past several days. Patient states that the symptoms are typical of her symptoms with history of sic kle cell disease. Patient reports that she was admitted in [facility] from the end of March 2018 to April 2018.At the time of her admission, she was treated with pain medications. Denies having associated fever,chills, CP, SOB, nausea, vomiting, and abdominal pain. Time Seen by Provider: 06/01/18 16:29 Chief Complaint (Nursing): Pain, Chronic History Per: Patient History/Exam Limitations: no limitations Onset/Duration Of Symptoms: Days Current Symptoms Are (Timing): Still Present Severity: Moderate Past Medical History Reviewed: Historical Data, Nursing Documentation, Vital Signs Vital Signs: Last Vital Signs Temp 98.7 F 06/01/18 16:07 Pulse 106 H 06/01/18 16:07 Resp 20 06/01/18 16:07 BP 123/81 06/01/18 16:07 Pulse Ox 100 06/01/18 16:07 - Medical History PMH: Anemia, Arthritis (BACK HX OF SCOLIOSIS W/ RODS SURG), Migraine, Sickle Cell Disease Denies: Atrial Fibrillation, Hyperthyroidism, Chronic Kidney Disease Surgical History: Back Surgery (scoliosis), Cholecystectomy (2003) - [facility] Procedures DILATION OF RIGHT URETER WITH INTRALUMINAL DEVICE, ENDO (06/17/17) PACKED CELL TRANSFUSION (07/26/12) REMOVAL OF INTRALUMINAL DEVICE FROM URETER, ENDO (06/17/17) TETANUS TOXOID ADMINIST (11/14/12) TRANSFUSE NONAUT RED BLOOD CELLS IN PERIPH VEIN, PERC (04/19/18) Family History: States: No Known Family Hx - Social History Hx Tobacco Use: No Hx Alcohol Use: No Hx Substance Use: No - Immunization History Hx Tetanus Toxoid Vaccination: Yes Hx Influenza Vaccination: Yes Hx Pneumococcal Vaccination: Yes Review Of Systems Constitutional: Positive for: Malaise. Negative for: Fever, Chills Cardiovascular: Negative for: Chest Pain Respiratory: Negative for: Cough, Shortness of Breath Gastrointestinal: Negative for: Nausea, Vomiting, Abdominal Pain Physical Exam - Physical Exam Appears: Non-toxic, No Acute Distress Skin: Warm, Dry, Pale Head: Atraumatic, Normacephalic Eye(s): bilateral: Normal Inspection Nose: Normal Oral Mucosa: Moist Neck: Supple Chest: Symmetrical Cardiovascular: Rhythm Regular Respiratory: Normal Breath Sounds, No Rales, No Rhonchi, No Wheezing Gastrointestinal/Abdominal: Normal Exam, Soft, No Tenderness, No Guarding, No Rebound Neurological/Psych: Oriented x3, Normal Speech ED Course And Treatment - Laboratory Results Result Diagrams: 06/01/18 17:28 06/01/18 17:28 Lab Interpretation: Abnormal (WBC 18.2, Hgb 7.7, HCO3 19, UA WBC 673, nitrite positive with many bacteria.) O2 Sat by Pulse Oximetry: 100 (RA) Pulse Ox Interpretation: Normal Progress Note: 18:20 Patient states no change after initial dose of pain medication according to protocol although she appears comfortable and is eating chips and cookies. Second dose of Dilaudid po is ordered. 19:30 Patient again stating that she has no relief from the pain medication. She is standing at the side of the bed and appears comfortable. Third does of po Dilaudid ordered according to protocol. Reevaluation Time: 20:29 Reassessment Condition: Improved (Patient no nodding off and requesting discharge. States she is still in pain but requesting discharge.) Medical Decision Making Medical Decision Making: Plan: --Labs --UA --Benadryl PO --Dilaudid PO --Motrin PO --Reglan PO --IV Fluids Disposition Counseled Patient/Family Regarding: Studies Performed, Diagnosis, Need For Followup - Disposition Referrals: Rosalina Hernandez MD [Staff Provider] - Disposition: HOME/ ROUTINE Disposition Time: 20:30 Condition: IMPROVED Instructions: Sickle Cell Disease Forms: [employer] (Rwandan) - Clinical Impression Clinical Impression: Sickle cell anemia, Sickle cell pain crisis - Scribe Statement The provider has reviewed the documentation as recorded by the Gray Rasmussen Provider Attestation: All medical record entries made by the Scribe were at my direction and personally dictated by me. I have reviewed the chart and agree that the record accurately reflects my personal performance of the history, physical exam, medical decision making, and the department course for this patient. I have also personally directed, reviewed, and agree with the discharge instructions and disposition.
[2018-06-01 17:37] LABS: BASO # 0.2 K/uL (0.0-0.2); BASO % 1.1 % (0.0-2.0); EOS # 0.6 K/uL (0.0-0.7); EOS % 3.4 % (0.0-4.0); HEMOGLOBIN 7.7 g/dL (11.0-16.0); LYMPH % 16.7 % (20.0-40.0); MEAN CELL VOLUME 85.3 fL (81.0-99.0); MEAN CORPUSCULAR HEMOGLOBIN 28.5 pg (27.0-31.0); MEAN CORPUSCULAR HGB CONC 33.5 g/dL (33.0-37.0); MEAN PLATELET VOLUME 9.5 fL (7.2-11.7); MONO # 1.4 K/uL (0.0-0.8); MONO % 7.5 % (0.0-10.0); NEUT % 71.3 % (50.0-75.0); NRBC % 0.1 % (0.0-2.0); RBC 2.71 Mil/uL (3.80-5.20); RED CELL DISTRIBUTION WIDTH 17.7 % (11.5-14.5); WHITE BLOOD COUNT 18.2 K/uL (4.8-10.8)
[2018-06-01 17:42] LABS: HCG,QUALITATIVE URINE NEGATIVE (NEGATIVE)
[2018-06-01 17:44] LABS: SQUAMOUS EPITHIAL 2 /hpf (0-5); URINE BACTERIA MANY (<OCC); URINE BILIRUBIN NEGATIVE (NEGATIVE); URINE BLOOD 1+ (NEGATIVE); URINE CLARITY Hazy (Clear); URINE COLOR Yellow (YELLOW); URINE GLUCOSE (UA) NORMAL (Normal); URINE LEUKOCYTE ESTERASE 3+ Leu/uL (Negative); URINE PROTEIN NEGATIVE (NEGATIVE)
[2018-06-01] MEDS ORDERED: cefTRIAXone IV 1 gm in Dextros 50 ML IVPB ONE (17:47)
[2018-06-01 17:51] LABS: ALB/GLOB RATIO 0.8 (1.0-2.1); ALBUMIN 3.4 g/dL (3.5-5.0); ALT/SGPT 58 U/L (9-52); AST/SGOT 86 U/L (14-36); BLOOD UREA NITROGEN 17 mg/dL (7-17); CALCIUM 8.1 mg/dl (8.6-10.4); GFR NON-AFRICAN AMERICAN > 60
[2018-06-01 18:21] VITALS: O2SAT 100
[2018-06-01 20:46] VITALS: BP 102/63; PULSE 107
== END 2018-06-01 20:48 | disposition home or self-care (01) ==
LOC: C.ER 15:45
DX: D57.00 Hb-SS disease with crisis, unspecified (principal)
CPT/HCPCS: 80053; 81001; 81025; 84703; 85025; 87086; 87181; 96361; 96365; 99285; J0696; J7030